=== PATIENT | female | born 1965 | race Caucasian/White ===

== ENCOUNTER 2016-10-27 13:12 | Emergency (ER) | payer OTHER ==
[~2016-10-27] VITALS: Ht 154.9 cm; Wt 78.0 kg
[~2016-10-27 13:12] MED LIST: GLC/500 PO; OXYC1TAB3 PO; PROM25TA9 PO
[2016-10-27 13:17] VITALS: TEMP 36.9; Ht 154.9 cm; Wt 78.0 kg
--- NOTE | 2016-10-27 14:30 | DIAGNOSTIC IMAGING REPORT ---
FOOT MIN 3 VIEWS ROUTINE CLINICAL HISTORY: LEFT FOOT PAIN pain COMPARISON: None. DISCUSSION: The bones and joint spaces appear intact. There is no evidence of fracture, dislocation or bony disease. There is no evidence for soft tissue swelling. IMPRESSION: Negative study. Electronically signed by: Ata Garcia M.D. 10/27/2016 2:29 PM Dictated Date/Time: 10/27/2016 2:28 PM
[2016-10-27 14:54] VITALS: BP 133/64; PULSE 81; O2SAT 97
--- NOTE | 2016-10-27 15:58 | EMERGENCY ROOM VISIT NOTE ---
History First contact with patient: 14:00 Chief Complaint: FOOT PAIN Stated Complaint: LEFT FOOT PAIN History of Present Illness The patient is a 51 year old female who presents to the Emergency Room with complaints of left foot pain. The patient reports falling off of her deck last week and landing on a boulder. She is had persistent foot pain since that time. She does report having a cut on the bottom of the foot, but denies any drainage or redness. She denies any pain radiating into the ankle or leg, and denies any paresthesias or numbness of the left foot or toes. She rates her discomfort a 4 out of 10. 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 (15) OSTEOARTHROS NOS-UNSPEC (16) Puncture wound of left foot (17) Puncture wound of left foot (18) Thumb fracture Family History Diabetes mellitus FH: heart disease FHx: gallbladder disease Hypertension Kidney disease Kidney stones Seizures Social History Smoking Status: Never Smoker Alcohol Use: occasionally Drug Use: none Marital Status: Housing Status: lives with family Occupation Status: unemployed Current/Historical Medications Scheduled Ascorbic Acid (Vitamin C), 1 TAB PO QAM Clonazepam (Klonopin), 1 MG PO BIDM Escitalopram Oxalate (Escitalopram Oxalate), 10 MG PO QAM Escitalopram Oxalate (Escitalopram Oxalate), 20 MG PO QAM Ferrous Sulfate (Iron), 1 TAB PO HS Levothyroxine Sodium (Levothyroxine Sodium), 100 MCG PO QAM Linaclotide (Linzess), 145 MCG PO QAM Lisinopril (Lisinopril), 10 MG PO QPM Loratadine (Claritin), 10 MG PO QAM Metformin Hcl (Glucophage), 500 MG PO QPM Metoprolol Tartrate (Lopressor) (Lopressor), 25 MG PO BID Omeprazole (Prilosec), 40 MG PO QAM Simvastatin (Simvastatin), 40 MG PO HS Scheduled PRN Hydrochlorothiazide (Hydrochlorothiazide), 25 MG PO DAILY PRN for Swelling Ibuprofen (Advil), 400 MG PO Q6H PRN for Pain Oxycodone Ir (Roxicodone Ir), 1-2 TAB PO Q4H PRN for Pain Promethazine Hcl (Phenergan), 25 MG PO Q6H PRN for Nausea Allergies Coded Allergies: Methylprednisolone (Verified Allergy, Mild, RASH, 10/27/16) Erythromycin (Verified Allergy, Unknown, RASH, 10/27/16) Sulfa Antibiotics (Verified Allergy, Unknown, RASH, 10/27/16) Hydromorphone (Verified Adverse Reaction, Intermediate, confusion, 10/27/16) Physical Exam Vital Signs Date Time Temp Pulse Resp B/P Pulse Ox O2 Delivery O2 Flow Rate FiO2 10/27/16 14:54 81 16 133/64 97 Room Air 10/27/16 13:17 36.9 73 18 151/83 96 Room Air Physical Exam CONSTITUTIONAL: Healthy and well nourished. Alert and oriented X 3 with positive affect. Patient does not appear in any acute distress. HEENT: Normocephalic, atraumatic. Pupils equal, round and reactive. NECK: Full active range of motion without discomfort. MUSCULOSKELETAL: Examination of the left foot shows evidence for a prior wound on the plantar instead. He does appear to be healing well without any evidence for induration, fluctuance, erythema or drainage. She has generalized tenderness to palpation along the entire medial plantar fascia. She has no focal tenderness over the dorsal midfoot, metatarsals or phalanges. No focal tenderness over the calcaneus or Achilles tendon. Capillary refill is less than 2 seconds. INTEGUMENTARY: No rash or other significant dermatologic conditions noted. NEUROLOGIC: Left foot and toes are sensory intact. Medical Decision & Procedures ER Provider Diagnostic Interpretation: My interpretation of left foot x-rays does not show any acute fractures, dislocations or radiopaque foreign bodies. Radiologist report is as follows: FOOT MIN 3 VIEWS ROUTINE CLINICAL HISTORY: LEFT FOOT PAIN pain COMPARISON: None. DISCUSSION: The bones and joint spaces appear intact. There is no evidence of fracture, dislocation or bony disease. There is no evidence for soft tissue swelling. IMPRESSION: Negative study. ED Course Patient history and physical exam were performed. Nurse's notes were reviewed. The patient refused any analgesics on initial exam. X-rays of the left foot were normal. The patient was encouraged to follow-up with orthopedics for further reevaluation since she has had this discomfort for a week. I did review x-ray results with her, but advised her that this could also be a plantar fascia injury. At this point I do not suspect cellulitis or foot infection. The patient reports that she does have crutches and a walker at home , and was encouraged to remain limited weightbearing as tolerated. Ice for swelling and pain. I be peripheral or Tylenol if needed for additional pain relief. The patient reports that she will follow up with orthopedics in [place]. She was provided a copy of her x-rays on disc. The patient voiced understanding of all discharge instructions, and rated her pain a 4 out of 10 at the time of discharge. Medical Decision Impression Primary Impression: Contusion of left foot Departure Information Referrals No Doctor, Assigned (PCP) Patient Instructions [facility] Problem Qualifiers Primary Impression: Contusion of left foot Encounter type: initial encounter Qualified Codes: S90.32XA - Contusion of left foot, initial encounter
[2016-11-04] MEDS ORDERED: METO-157 PO (13:37)
[2016-11-04] MEDS ORDERED: ASCO-63 PO (15:10)
[2016-11-12] MEDS ORDERED: OXYC7.5T62 PO (11:45)
[2016-11-12] MEDS ORDERED: CYM30 PO (11:45)
[2016-11-12] MEDS ORDERED: NRN600 PO (11:45)
[2016-11-12] MEDS ORDERED: LRS10 PO (11:45)
[2016-11-12] MEDS ORDERED: NRN300 PO (14:54)
[2017-02-18] MEDS ORDERED: GLC500 PO (10:30)
[2017-02-18] MEDS ORDERED: CPR500 PO (10:30)
[2017-02-18] MEDS ORDERED: DFL100 PO (10:30)
== END 2016-10-27 15:15 | disposition home or self-care (01) ==
LOC: C.EDB 13:13 → C.EDD 15:15
DX: S90.32XA Contusion of left foot, initial encounter (principal); W01.10XA Fall on same level from slipping, tripping and stumbling with subsequent striking against unspecified object, initial encounter; F41.9 Anxiety disorder, unspecified; K21.9 Gastro-esophageal reflux disease without esophagitis; I10 Essential (primary) hypertension; E78.5 Hyperlipidemia, unspecified; E03.9 Hypothyroidism, unspecified; Z83.3 Family history of diabetes mellitus; Z82.49 Family history of ischemic heart disease and other diseases of the circulatory system; Z82.0 Family history of epilepsy and other diseases of the nervous system; Z79.899 Other long term (current) drug therapy

== ENCOUNTER 2016-11-03 13:04 | Emergency (ER) | payer OTHER ==
[~2016-11-03] VITALS: Ht 154.9 cm; Wt 104.0 kg
[2016-11-03 13:08] VITALS: TEMP 37.5; Ht 154.9 cm; Wt 104.0 kg
[2016-11-03] MEDS ORDERED: KETOROLAC TROMETHAMINE 60 MG/2 ML VIAL IM STA (13:43)
[2016-11-03] MEDS ORDERED: OXYCODONE HCL IR 5 MG TAB (IMMEDIATE RELEASE) PO STA ×2 (13:43→14:35)
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
[2016-11-03] MEDS ORDERED: PROMETHAZINE HCL INJ 25 MG/ML 1 ML VIAL IM STA (15:51)
[2016-11-03] MEDS ORDERED: MoRPHine SULFATE 10 MG/ML CARP/VIAL IM STA (15:51)
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
[2016-11-03] MEDS ORDERED: OXYC1TAB3 PO (16:44)
[2016-11-03] MEDS ORDERED: MELO7.5T5 PO (16:44)
[2016-11-03 16:52] VITALS: BP 99/58; PULSE 61; O2SAT 95
[2016-11-04] MEDS ORDERED: METO-157 PO (13:37)
[2016-11-04] MEDS ORDERED: ASCO-63 PO (15:10)
[2016-11-04] MEDS ORDERED: FERR1TAB23 PO (16:15)
[2016-11-04] MEDS ORDERED: OXYC-57 PO (19:30)
[2016-11-04] MEDS ORDERED: ZCR40 PO (20:55)
[2016-11-04] MEDS ORDERED: HYDR25TA5 PO (20:55)
[2016-11-04] MEDS ORDERED: LEVO100T7 PO (20:55)
[2016-11-04] MEDS ORDERED: OMEP40CA41 PO (20:55)
[2016-11-04] MEDS ORDERED: LXP/20 PO (20:55)
[2016-11-04] MEDS ORDERED: LORA10TA5 PO (20:55)
[2016-11-04] MEDS ORDERED: LXP10 PO (20:55)
[2016-11-04] MEDS ORDERED: LINA1CAP PO (21:00)
[2016-11-04] MEDS ORDERED: IBUP-1277 PO (21:36)
[2016-11-04] MEDS ORDERED: CLON1TAB3 PO (21:58)
[2016-11-04] MEDS ORDERED: LISI-461 PO (21:58)
[2016-11-04] MEDS ORDERED: METO25TA56 PO (23:24)
[2016-11-12] MEDS ORDERED: CYM30 PO (11:45)
[2016-11-12] MEDS ORDERED: LRS10 PO (11:45)
[2016-11-12] MEDS ORDERED: OXYC7.5T62 PO (11:45)
[2016-11-12] MEDS ORDERED: NRN600 PO (11:45)
[2016-11-12] MEDS ORDERED: NRN300 PO (14:54)
[2017-02-18] MEDS ORDERED: GLC500 PO (10:30)
[2017-02-18] MEDS ORDERED: CPR500 PO (10:30)
[2017-02-18] MEDS ORDERED: DFL100 PO (10:30)
== END 2016-11-03 16:54 | disposition home or self-care (01) ==
LOC: C.EDB 13:06 → C.EDD 16:54
DX: M25.552 Pain in left hip (principal); E11.9 Type 2 diabetes mellitus without complications; I10 Essential (primary) hypertension; I25.10 Atherosclerotic heart disease of native coronary artery without angina pectoris; F41.9 Anxiety disorder, unspecified; E03.9 Hypothyroidism, unspecified

== ENCOUNTER 2016-11-04 15:27 | Observation (INO) | payer OTHER ==
[~2016-11-04] VITALS: Ht 157.5 cm; Wt 103.4 kg
[~2016-11-04 15:27] MED LIST changes: +ASCO-63 PO; +MELO7.5T5 PO; +METO-157 PO
[2016-11-04] MEDS ORDERED: FERR1TAB23 PO (16:15)
[2016-11-04] MEDS ORDERED: SODIUM CHLORIDE 0.9% 1000ML 1,000 ML IV STA (16:45)
[2016-11-04] MEDS ORDERED: KETOROLAC TROMETHAMINE 30 MG/ML VIAL IV STA (16:45)
[2016-11-04] MEDS ORDERED: HYDROmorphone INJ 1 MG/ML SYR IV STA ×2 (16:45)
[2016-11-04] MEDS ORDERED: ACETAMINOPHEN 500 MG TAB PO STA (16:45)
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
[2016-11-04 17:24] LABS: BASO % 0.3 %; BASO ABS # 0.02 K/uL (0-0.2); COMPLETE YES; EOS % 1.6 %; HEMATOCRIT 40.1 % (37-47); IG% 0.1 %; LYMPH % 46.3 %; LYMPH ABS # 3.11 K/uL (1.2-3.4); MEAN CELL VOLUME 87.7 fL (80-100); MEAN CORPUSCULAR HEMOGLOBIN 30.4 pg (25-34); MEAN CORPUSCULAR HGB CONC 34.7 g/dl (32-36); MEAN PLATELET VOLUME 9.8 fL (7.4-10.4); MONO % 5.4 %; NEUT % 46.3 %; PLATELET COUNT 229 K/uL (130-400); RED BLOOD COUNT 4.57 M/uL (4.2-5.4); WHITE BLOOD COUNT 6.71 K/uL (4.8-10.8)
[2016-11-04] MEDS ORDERED: LORAZEPAM 2 MG/ML 1 ML VIAL ONE (17:37)
[2016-11-04] MEDS ORDERED: LORAZEPAM 2 MG/ML 1 ML VIAL IV STA (17:37)
[2016-11-04 18:13] LABS: BLOOD UREA NITROGEN 16 mg/dl (7-18); BUN/CREATININE RATIO 14.5 (10-20); CALCIUM 8.6 mg/dl (8.5-10.1); CARBON DIOXIDE 25 mmol/L (21-32); CHLORIDE 105 mmol/L (98-107); POTASSIUM 3.9 mmol/L (3.5-5.1); SODIUM 141 mmol/L (136-145)
[2016-11-04] MEDS ORDERED: GADAVIST IV PRN (18:30)
[2016-11-04 18:44] LABS: GLUCOSE 199 mg/dl (70-99)
--- NOTE | 2016-11-04 19:00 | DIAGNOSTIC IMAGING REPORT ---
MRI OF THE LUMBAR SPINE COMBO CLINICAL HISTORY: Low back pain of several months duration. COMPARISON STUDY: Radiographs of the lumbar spine dated 09/02/2016. TECHNIQUE: MRI of the lumbar spine is performed utilizing various T1 and T2-weighted sequences in the axial and sagittal planes. Contrast-enhanced sequences were acquired following the IV administration of 10 cc of Gadavist. FINDINGS: Lumbar spine: Vertebral body height and alignment are maintained throughout the lumbar spine. There is no MRI evidence of fracture. Marrow signal intensity is heterogeneous. No destructive osseous lesion is seen. The transverse and spinous processes appear intact. There is no evidence of spondylolysis. Mild chronic degenerative endplate change is present at T12-L1, L2-L3, and L4-L5. Tiny anterior osteophytes are noted in the lower lumbar region. Intervertebral discs: Degenerative disc desiccation is noted throughout the lumbar spine. No significant loss of height is seen. Spinal cord: The visualized spinal cord is normal in morphology and signal intensity. The conus medullaris terminates at the level of L1. The nerve roots of the cauda equina are normal as visualized. No abnormal enhancement is seen on the postcontrast images. L1-L2: Unremarkable. L2-L3: There is a small posterior disc bulge. The central canal is clear. Mild facet arthropathy is of no consequence. The neural foramina are patent. L3-L4: There is a small posterior disc bulge. The central canal appears clear. There is bilateral subarticular stenosis. There may be impingement on the exiting bilateral L3 nerve roots. Facet arthropathy is of no consequence. The neural foramina are clear. L4-L5: There is a small posterior disc bulge. No significant acquired compromise of the central canal is identified. There is mild bilateral subarticular stenosis. Facet arthropathy is of no consequence. The neural foramina are clear bilaterally. Bilateral facet joint effusions are noted. L5-S1: There is a posterior disc bulge eccentric to the right with annular fissure. This causes right-sided subarticular stenosis and may impinge on the exiting right L5 nerve root. There is no significant acquired compromise of the central canal. Facet arthropathy causes mild bilateral neural foraminal stenosis, right greater than left. There is mild lipomatosis of the central canal at this level. Sacrum: Visualized sacrum is normal in morphology and signal intensity. Soft tissues: The paraspinous soft tissues are within normal limits. The partially imaged retroperitoneal structures are grossly unremarkable but incompletely assessed. IMPRESSION: 1. No acute bony abnormality is identified throughout the lumbosacral spine. 2. There is no large disc herniation or significant central canal stenosis. 3. Lumbosacral spondylosis as detailed above. Dictated: 11/04/2016 6:33 PM Transcribed: 11/04/2016 7:00 PM [email or web address] Electronically signed by: James Phelps M.D. 11/04/2016 7:02 PM Dictated Date/Time: 11/04/2016 6:33 PM
[2016-11-04] MEDS ORDERED: OXYC-57 PO (19:30)
[2016-11-04] MEDS ORDERED: HYDROmorphone INJ 1 MG/ML SYR ONE (19:37)
[2016-11-04] MEDS ORDERED: LXP10 PO (20:55)
[2016-11-04] MEDS ORDERED: LXP/20 PO (20:55)
[2016-11-04] MEDS ORDERED: LORA10TA5 PO (20:55)
[2016-11-04] MEDS ORDERED: ZCR40 PO (20:55)
[2016-11-04] MEDS ORDERED: OMEP40CA41 PO (20:55)
[2016-11-04] MEDS ORDERED: LEVO100T7 PO (20:55)
[2016-11-04] MEDS ORDERED: HYDR25TA5 PO (20:55)
[2016-11-04] MEDS ORDERED: LINA1CAP PO (21:00)
[2016-11-04] MEDS ORDERED: IBUP-1277 PO (21:36)
[2016-11-04] MEDS ORDERED: MAGNESIUM HYDROXIDE SUSP 30 ML UDC PO PRN (21:45)
[2016-11-04] MEDS ORDERED: ALUMINUM/MAGNESIUM/SIMETH (MAALOX MAX) 30 ML UDC PO PRN (21:45)
[2016-11-04] MEDS ORDERED: CLON1TAB3 PO (21:58)
[2016-11-04] MEDS ORDERED: LISI-461 PO (21:58)
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
[2016-11-04] MEDS ORDERED: HYDROCHLOROTHIAZIDE 25 MG TAB PO PRN (22:15)
[2016-11-04] MEDS ORDERED: PATIENT'S HEIGHT AND/OR WEIGHT NEEDED SCH (23:00)
[2016-11-04] MEDS ORDERED: IV FLUIDS COMPLETED PRN (23:00)
[2016-11-04] MEDS ORDERED: GABAPENTIN 100 MG CAP PO ONE (23:15)
[2016-11-04] MEDS ORDERED: METO25TA56 PO (23:24)
[2016-11-05 00:02] VITALS: BP 110/73; TEMP 37; Ht 157.5 cm; Wt 103.4 kg
[2016-11-05] MEDS: OXYCODONE/ACETAMINOPHEN 5-325 TAB PO PRN ×3 (00:03→10:24)
[2016-11-05 01:19] LABS: PROTHROMBIN TIME (PATIENT) 10.5 SECONDS (9.0-12.0)
[2016-11-05] MEDS ORDERED: MoRPHine SULFATE 4 MG/ML 1 ML CARP\\VIAL IV STA (02:06)
[2016-11-05] MEDS: LEVOTHYROXINE 100 MCG TAB PO SCH (05:24)
[2016-11-05 06:52] LABS: HEMATOCRIT 36.4 % (37-47); MEAN CELL VOLUME 88.3 fL (80-100); MEAN CORPUSCULAR HEMOGLOBIN 30.1 pg (25-34); MEAN CORPUSCULAR HGB CONC 34.1 g/dl (32-36); MEAN PLATELET VOLUME 9.2 fL (7.4-10.4); PLATELET COUNT 175 K/uL (130-400); RED BLOOD COUNT 4.12 M/uL (4.2-5.4); WHITE BLOOD COUNT 5.55 K/uL (4.8-10.8)
[2016-11-05 07:15] VITALS: BP 107/66; PULSE 63; TEMP 36.6; O2SAT 94
[2016-11-05 07:25] LABS: BUN/CREATININE RATIO 13.6 (10-20); CALCIUM 8.7 mg/dl (8.5-10.1); CREATININE 1.1 mg/dl (0.60-1.20); POTASSIUM 4.1 mmol/L (3.5-5.1)
[2016-11-05] MEDS: LINZESS~ORDER AWAITING ACTION SCH ×3 (07:58→17:11)
[2016-11-05] MEDS ORDERED: INFLUENZA ADMINISTRATION CHARGE ONE (08:00)
[2016-11-05] MEDS ORDERED: INFLUENZA VIRUS QUAD VACCINE 0.5 ML SYR IM. ONE (08:00)
[2016-11-05] MEDS: CLONAZEPAM 1 MG TAB PO SCH ×2 (08:46→17:14)
[2016-11-05] MEDS: LORATADINE 10 MG TAB PO SCH (08:47)
[2016-11-05] MEDS: METOPROLOL TARTRATE 25 MG TAB PO SCH ×2 (08:47→20:53)
[2016-11-05] MEDS: ESCITALOPRAM OXALATE 10 MG TAB PO SCH (08:48)
[2016-11-05] MEDS: ESCITALOPRAM OXALATE 20 MG TAB PO SCH (08:48)
[2016-11-05] MEDS: PANTOprazole SOD 40 MG TAB PO SCH (08:49)
[2016-11-05 08:52] VITALS: BP 132/80; PULSE 67
[2016-11-05] MEDS: ENOXAPARIN 40 MG/0.4 ML SYR SQ SCH (08:55)
[2016-11-05] MEDS ORDERED: GABAPENTIN 100 MG CAP PO SCH ×2 (09:00)
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
[2016-11-05] MEDS: KETOROLAC TROMETHAMINE 15 MG/ML VIAL IV PRN ×2 (11:41→19:50)
[2016-11-05] MEDS ORDERED: NURSING VERBAL MED ORDER ONE (13:45)
[2016-11-05] MEDS: HYDROmorphone INJ 0.5 MG/0.5 ML SYR IV PRN ×6 (13:54→23:21)
[2016-11-05] MEDS: ONDANSETRON INJ 2 MG/ML 2 ML VIAL IV PRN (13:55)
[2016-11-05] MEDS: GABAPENTIN 300 MG CAP PO SCH ×2 (14:02→20:53)
--- NOTE | 2016-11-05 14:27 | Progress Note ---
Subjective Date of Service: Nov 05, 2016. Subjective Pt evaluation today including: conversation w/ patient, physical exam, chart review, lab review, review of studies, review of inpatient medication list Reports pain is so severe she has been unable to sleep. She feels tired, helpless, and "defeated." Hydrocodone at home were not working. Reports morphine has been the only pain med helping. Pain that shoots from lateral thigh, to anterior knee and barker down to her hallux. Otherwise, no chest pain, no sob, no abd pain, no urinary symptoms, no constipation. Problem List Medical Problems: (1) Abdominal pain Status: Acute (2) Abdominal pain Status: Acute (3) ANXIETY STATE NOS Status: Chronic (4) Back pain Status: Acute (5) Contusion of left foot Status: Acute (6) Hip pain, left Status: Acute (7) Injury of left foot Status: Acute (8) Intractable abdominal pain Status: Acute (9) Left upper quadrant pain Status: Acute (10) Vertigo Status: Acute Review of Systems All Other Systems: Reviewed and Negative Medications Acetaminophen (Tylenol Tab) 650 mg Q4H PRN PO; Start 11/04/16 at 21:45; Stop 12/04/16 at 21:44 Al Hydrox/Mg Hydrox/Simethicone (Maalox Max Susp) 15 ml Q4H PRN PO; Start 11/04 at 21:45; Stop 12/04/16 at 21:44 Clonazepam (Klonopin Tab) 1 mg BIDM PO Last administered on 11/05/16 08:46; Admin Dose 1 MG; Start 11/05/16 at 08:00; Stop 12/05/16 at 07:59 Enoxaparin Sodium (Lovenox Inj) 40 mg Q24H SQ Last administered on 11/05/16 08: 55; Admin Dose 40 MG; Start 11/05/16 at 09:00; Stop 12/05/16 at 08:59 Escitalopram Oxalate (Lexapro Tab) 10 mg QAM PO Last administered on 11/05/16 08:48; Admin Dose 10 MG; Start 11/05/16 at 09:00; Stop 12/05/16 at 08:59 Escitalopram Oxalate (Lexapro Tab) 20 mg QAM PO Last administered on 11/05/16 08:48; Admin Dose 20 MG; Start 11/05/16 at 09:00; Stop 12/05/16 at 08:59 Gabapentin (Neurontin Cap) 300 mg TID PO Last administered on 11/05/16 14:02; Admin Dose 300 MG; Start 11/05/16 at 14:00; Stop 12/05/16 at 13:59 Gadobutrol (Gadavist) 10 mmol UD PRN IV; Start 11/04/16 at 18:30; Stop at 18:29 Hydrochlorothiazide (Hydrochlorothiazide Tab) 25 mg DAILY PRN PO; Start at 22:15; Stop 12/04/16 at 22:14 Hydromorphone HCl (Dilaudid Inj) 0.5 mg Q1H PRN IV Last administered on 13:54; Admin Dose 0.5 MG; Start 11/05/16 at 14:00; Stop 11/19/16 at 13:59 Ketorolac Tromethamine (Toradol Inj) 15 mg Q6H PRN IV Last administered on 11/05 11:41; Admin Dose 15 MG; Start 11/05/16 at 11:00; Stop 11/07/16 at 11:00 Levothyroxine Sodium (Synthroid Tab) 100 mcg DAILYBB PO Last administered on 05:24; Admin Dose 100 MCG; Start 11/05/16 at 06:00; Stop 12/05/16 at 06: 59 Lisinopril (Zestril Tab) 10 mg QPM PO; Start 11/05/16 at 21:00; Stop 12/05/16 at 20:59 Loratadine (Claritin Tab) 10 mg QAM PO Last administered on 11/05/16 08:47; Admin Dose 10 MG; Start 11/05/16 at 09:00; Stop 12/05/16 at 08:59 Magnesium Hydroxide (Milk Of Magnesia Susp) 30 ml Q6H PRN PO; Start 11/04/16 at 21:45; Stop 12/04/16 at 21:44 Metoclopramide HCl (Reglan Tab) 10 mg DAILY PRN PO; Start 11/04/16 at 22:15; Stop 12/04/16 at 22:14 Metoprolol Tartrate (Lopressor Tab) 25 mg BID PO Last administered on 11/05/16 08:47; Admin Dose 25 MG; Start 11/05/16 at 09:00; Stop 12/05/16 at 08:59 Miscellaneous (Iv Fluids Completed) 1 ea PRN PRN N/A; Start 11/04/16 at 23:00; Stop 11/04/17 at 22:59 Miscellaneous Information (Order Awaiting Action) 1 ea QS N/A; Start 11/05/16 at 00:00; Stop 12/05/16 at 00:00 Ondansetron HCl (Zofran Inj) 4 mg Q6H PRN IV Last administered on 11/05/16 13: 55; Admin Dose 4 MG; Start 11/04/16 at 21:45; Stop 12/04/16 at 21:44 Oxycodone/ Acetaminophen (Percocet 7.5-325MG Tab) 1 tab Q4H PRN PO; Start 11/05 at 14:00; Stop 11/19/16 at 13:59 Pantoprazole Sodium (Protonix Tab) 40 mg QAM PO Last administered on 11/05/16 08:49; Admin Dose 40 MG; Start 11/05/16 at 09:00; Stop 12/05/16 at 08:59 Polyethylene (Miralax Powder Packet) 17 gm DAILY PRN PO; Start 11/04/16 at 23: 00; Stop 12/04/16 at 22:59 Promethazine HCl (Phenergan Tab) 25 mg Q6H PRN PO; Start 11/04/16 at 22:15; Stop 12/04/16 at 22:14 Simvastatin (Zocor Tab) 40 mg HS PO; Start 11/05/16 at 21:00; Stop 12/05/16 at 20:59 Objective Vital Signs Date Time Temp Pulse Resp B/P Pulse Ox O2 Delivery O2 Flow Rate FiO2 11/05/16 08:52 67 132/80 11/05/16 08:20 Room Air 94 11/05/16 07:15 36.6 63 18 107/66 94 Room Air 11/05/16 00:02 37.0 18 110/73 Room Air 11/05/16 00:02 Room Air 11/04/16 22:35 78 18 110/73 98 11/04/16 21:36 76 18 121/57 93 Room Air 11/04/16 21:01 84 18 127/57 93 Room Air 11/04/16 19:03 91 18 136/66 96 Room Air 11/04/16 18:42 74 18 126/61 95 Room Air 11/04/16 15:29 37.0 76 18 140/70 95 Room Air Physical Exam Comments: NAD, AOx3 anicteric sclerae, EOMI, PERRL S1 S2 RRR, no murmurs appreciated CTAB no w/r/r Abd soft, nt/nd +BS no CVA tenderness no LE edema and FROM in all extremities CN 2-12 grossly intact without any facial drooping or focal deficits Laboratory Results Last 24 Hours Test 11/04/16 17:00 11/04/16 23:29 11/05/16 06:43 White Blood Count 6.71 K/uL 5.55 K/uL Red Blood Count 4.57 M/uL 4.12 M/uL Hemoglobin 13.9 g/dL 12.4 g/dL Hematocrit 40.1 % 36.4 % Mean Corpuscular Volume 87.7 fL 88.3 fL Mean Corpuscular Hemoglobin 30.4 pg 30.1 pg Mean Corpuscular Hemoglobin Concent 34.7 g/dl 34.1 g/dl Platelet Count 229 K/uL 175 K/uL Mean Platelet Volume 9.8 fL 9.2 fL Neutrophils (%) (Auto) 46.3 % Lymphocytes (%) (Auto) 46.3 % Monocytes (%) (Auto) 5.4 % Eosinophils (%) (Auto) 1.6 % Basophils (%) (Auto) 0.3 % Neutrophils # (Auto) 3.10 K/uL Lymphocytes # (Auto) 3.11 K/uL Monocytes # (Auto) 0.36 K/uL Eosinophils # (Auto) 0.11 K/uL Basophils # (Auto) 0.02 K/uL RDW Standard Deviation 42.4 fL 42.8 fL RDW Coefficient of Variation 13.2 % 13.2 % Immature Granulocyte % (Auto) 0.1 % Immature Granulocyte # (Auto) 0.01 K/uL Sodium Level 141 mmol/L 143 mmol/L Potassium Level 3.9 mmol/L 4.1 mmol/L Chloride Level 105 mmol/L 108 mmol/L Carbon Dioxide Level 25 mmol/L 26 mmol/L Anion Gap 11.0 mmol/L 9.0 mmol/L Blood Urea Nitrogen 16 mg/dl 15 mg/dl Creatinine 1.10 mg/dl 1.10 mg/dl Estimated GFR () 67.8 67.8 Estimated GFR (Non- 58.5 58.5 BUN/Creatinine Ratio 14.5 13.6 Random Glucose 199 mg/dl 139 mg/dl Calcium Level 8.6 mg/dl 8.7 mg/dl Prothrombin Time 10.5 SECONDS Prothromb Time International Ratio 1.0 Est Creatinine Clear Calc Drug Dose 69.0 ml/min MRI [facility] spine IMPRESSION: 1. No acute bony abnormality is identified throughout the lumbosacral spine. 2. There is no large disc herniation or significant central canal stenosis. 3. Lumbosacral spondylosis as detailed above. Dictated: 11/04/2016 6:33 PM Transcribed: 11/04/2016 7:00 PM [email or web address] Assessment and Plan 1. Left lumbar radiculopathy - started on gabapentin 300 mg TID - pain management on board - still requiring IV pain meds for relief - MRI results reviewed - ortho evaluation - PT/OT evaluation - cont toradol and dilaudid for now 2. Hypertension - Continue lisinopril, hctz, metoprolol 3. Hypercholesterolemia - Continue simvastatin 4. Hypothyroidism Continue levothyroxine 5. Depression/Anxiety - Continue Lexapro - Klonopin 6. Gastroparesis - Continue metoclopramide - Continue promethazine 7. DVT prophylaxis - Lovenox 40 mg subcutaneous daily
[2016-11-05 14:56] VITALS: BP 125/73; PULSE 72; TEMP 37; O2SAT 96
[2016-11-05] MEDS: PROMETHAZINE HCL 25 MG TAB PO PRN (15:55)
[2016-11-05] MEDS: OXYCODONE/ACETAMINOPHEN 7.5-325 TAB PO PRN ×2 (15:56→20:54)
[2016-11-05] MEDS: METOCLOPRAMIDE HCL 10 MG TAB PO PRN (17:42)
[2016-11-05 20:50] VITALS: BP 118/65; PULSE 75
[2016-11-05] MEDS: SIMVASTATIN 40 MG TAB PO SCH (20:53)
[2016-11-05] MEDS: LISINOPRIL 10 MG TAB PO SCH (20:53)
[2016-11-05] MEDS: LINACLOTIDE 145 MCG PO SCH (21:28)
[2016-11-05 23:38] VITALS: BP 104/61; PULSE 65; TEMP 36.8; O2SAT 94
[2016-11-06] VITALS (7 sets, daily range): BP systolic 107–137; BP diastolic 64–78; PULSE 65–92; TEMP 36.7–36.9; O2SAT 93–94
[2016-11-06] MEDS: HYDROmorphone INJ 0.5 MG/0.5 ML SYR IV PRN ×8 (02:35→15:59)
[2016-11-06] MEDS: ACETAMINOPHEN 325 MG TAB PO PRN ×2 (04:29→12:59)
[2016-11-06] MEDS: LEVOTHYROXINE 100 MCG TAB PO SCH (04:55)
[2016-11-06] MEDS: LORATADINE 10 MG TAB PO SCH (09:02)
[2016-11-06] MEDS: CLONAZEPAM 1 MG TAB PO SCH ×2 (09:02→17:52)
[2016-11-06] MEDS: ESCITALOPRAM OXALATE 10 MG TAB PO SCH (09:02)
[2016-11-06] MEDS: METOPROLOL TARTRATE 25 MG TAB PO SCH ×2 (09:02→21:27)
[2016-11-06] MEDS: GABAPENTIN 300 MG CAP PO SCH ×3 (09:02→21:27)
[2016-11-06] MEDS: ESCITALOPRAM OXALATE 20 MG TAB PO SCH (09:03)
[2016-11-06] MEDS: PANTOprazole SOD 40 MG TAB PO SCH (09:03)
[2016-11-06] MEDS: LINACLOTIDE 145 MCG PO SCH (09:04)
[2016-11-06] MEDS: ENOXAPARIN 40 MG/0.4 ML SYR SQ SCH (09:04)
--- NOTE | 2016-11-06 15:39 | Progress Note ---
Subjective Date of Service: Nov 06, 2016. Subjective Pt evaluation today including: conversation w/ patient, conversation w/ family , physical exam, review of inpatient medication list still in pain. Still requiring multiple doses of IV hydromorphone. No new symptoms or complaints offered. Problem List Medical Problems: (1) Abdominal pain Status: Acute (2) Abdominal pain Status: Acute (3) ANXIETY STATE NOS Status: Chronic (4) Back pain Status: Acute (5) Contusion of left foot Status: Acute (6) Hip pain, left Status: Acute (7) Injury of left foot Status: Acute (8) Intractable abdominal pain Status: Acute (9) Left upper quadrant pain Status: Acute (10) Vertigo Status: Acute Review of Systems All Other Systems: Reviewed and Negative Medications Acetaminophen (Tylenol Tab) 650 mg Q4H PRN PO Last administered on 11/06/16 12:59; Admin Dose 650 MG; Start 11/04/16 at 21:45; Stop 12/04/16 at 21:44 Al Hydrox/Mg Hydrox/Simethicone (Maalox Max Susp) 15 ml Q4H PRN PO; Start 11/04 at 21:45; Stop 12/04/16 at 21:44 Clonazepam (Klonopin Tab) 1 mg BIDM PO Last administered on 11/06/16 09:02; Admin Dose 1 MG; Start 11/05/16 at 08:00; Stop 12/05/16 at 07:59 Enoxaparin Sodium (Lovenox Inj) 40 mg Q24H SQ Last administered on 11/06/16 09: 04; Admin Dose 40 MG; Start 11/05/16 at 09:00; Stop 12/05/16 at 08:59 Escitalopram Oxalate (Lexapro Tab) 10 mg QAM PO Last administered on 11/06/16 09:02; Admin Dose 10 MG; Start 11/05/16 at 09:00; Stop 12/05/16 at 08:59 Escitalopram Oxalate (Lexapro Tab) 20 mg QAM PO Last administered on 11/06/16 09:03; Admin Dose 20 MG; Start 11/05/16 at 09:00; Stop 12/05/16 at 08:59 Gabapentin (Neurontin Cap) 300 mg TID PO Last administered on 11/06/16 14:04; Admin Dose 300 MG; Start 11/05/16 at 14:00; Stop 12/05/16 at 13:59 Gadobutrol (Gadavist) 10 mmol UD PRN IV; Start 11/04/16 at 18:30; Stop at 18:29 Hydrochlorothiazide (Hydrochlorothiazide Tab) 25 mg DAILY PRN PO; Start at 22:15; Stop 12/04/16 at 22:14 Hydromorphone HCl (Dilaudid Inj) 0.5 mg Q1H PRN IV Last administered on 14:41; Admin Dose 0.5 MG; Start 11/05/16 at 14:00; Stop 11/19/16 at 13:59 Ketorolac Tromethamine (Toradol Inj) 15 mg Q6H PRN IV Last administered on 11/05 19:50; Admin Dose 15 MG; Start 11/05/16 at 11:00; Stop 11/07/16 at 11:00 Levothyroxine Sodium (Synthroid Tab) 100 mcg DAILYBB PO Last administered on 04:55; Admin Dose 100 MCG; Start 11/05/16 at 06:00; Stop 12/05/16 at 06: 59 Linaclotide (Linzess) 145 mcg QAM PO Last administered on 11/06/16 09:04; Admin Dose 145 MCG; Start 11/06/16 at 09:00; Stop 12/06/16 at 08:59 Lisinopril (Zestril Tab) 10 mg QPM PO Last administered on 11/05/16 20:53; Admin Dose 10 MG; Start 11/05/16 at 21:00; Stop 12/05/16 at 20:59 Loratadine (Claritin Tab) 10 mg QAM PO Last administered on 11/06/16 09:02; Admin Dose 10 MG; Start 11/05/16 at 09:00; Stop 12/05/16 at 08:59 Magnesium Hydroxide (Milk Of Magnesia Susp) 30 ml Q6H PRN PO; Start 11/04/16 at 21:45; Stop 12/04/16 at 21:44 Metoclopramide HCl (Reglan Tab) 10 mg DAILY PRN PO Last administered on 17:42; Admin Dose 10 MG; Start 11/04/16 at 22:15; Stop 12/04/16 at 22:14 Metoprolol Tartrate (Lopressor Tab) 25 mg BID PO Last administered on 11/06/16 09:02; Admin Dose 25 MG; Start 11/05/16 at 09:00; Stop 12/05/16 at 08:59 Miscellaneous (Iv Fluids Completed) 1 ea PRN PRN N/A; Start 11/04/16 at 23:00; Stop 11/04/17 at 22:59 Ondansetron HCl (Zofran Inj) 4 mg Q6H PRN IV Last administered on 11/05/16 13: 55; Admin Dose 4 MG; Start 11/04/16 at 21:45; Stop 12/04/16 at 21:44 Oxycodone/ Acetaminophen (Percocet 7.5-325MG Tab) 1 tab Q4H PRN PO Last administered on 11/05/16 20:54; Admin Dose 1 TAB; Start 11/05/16 at 14:00; Stop 11/19/16 at 13:59 Pantoprazole Sodium (Protonix Tab) 40 mg QAM PO Last administered on 11/06/16 09:03; Admin Dose 40 MG; Start 11/05/16 at 09:00; Stop 12/05/16 at 08:59 Polyethylene (Miralax Powder Packet) 17 gm DAILY PRN PO; Start 11/04/16 at 23: 00; Stop 12/04/16 at 22:59 Promethazine HCl (Phenergan Tab) 25 mg Q6H PRN PO Last administered on 15:55; Admin Dose 25 MG; Start 11/04/16 at 22:15; Stop 12/04/16 at 22:14 Simvastatin (Zocor Tab) 40 mg HS PO Last administered on 11/05/16 20:53; Admin Dose 40 MG; Start 11/05/16 at 21:00; Stop 12/05/16 at 20:59 Medications (Trade) Dose Ordered Sig/Prachi Route Start Time Stop Time Status Last Admin Dose Admin Lisinopril (Zestril Tab) 10 mg QPM PO 11/05/16 21:00 12/05/16 20:59 11/05/16 20:53 10 MG Simvastatin (Zocor Tab) 40 mg HS PO 11/05/16 21:00 12/05/16 20:59 11/05/16 20:53 40 MG Linaclotide (Linzess) 145 mcg QAM PO 11/06/16 09:00 12/06/16 08:59 11/06/16 09:04 145 MCG Objective Vital Signs Date Time Temp Pulse Resp B/P Pulse Ox O2 Delivery O2 Flow Rate FiO2 11/06/16 10:57 92 137/71 11/06/16 08:15 94 11/06/16 08:10 93 Room Air 11/06/16 08:09 36.7 90 17 121/78 94 Room Air 11/05/16 23:50 Room Air 11/05/16 23:38 36.8 65 16 104/61 94 Room Air 11/05/16 20:50 75 118/65 11/05/16 15:50 Room Air Physical Exam Comments: nad, aox3, coherent and fluent speech eomi, perrl, anicteric sclerae s1 s2 rrr, no murmurs appreciated ctab no w/r/r abd soft, nt/nd +BS no LE edema no neuro focal deficits with CN 2-12 grossly intact Assessment and Plan 1. Left lumbar radiculopathy - started on gabapentin 300 mg TID - pain management on board - still requiring IV pain meds for relief, will increase hydromorphone dose and decrease frequency - MRI results reviewed - ortho evaluation - PT/OT evaluation and will need to determine if she'll need acute rehab vs home health visits - awaiting ortho consult 2. Hypertension - Continue lisinopril, hctz, metoprolol 3. Hypercholesterolemia - Continue simvastatin 4. Hypothyroidism Continue levothyroxine 5. Depression/Anxiety - Continue Lexapro - Klonopin 6. Gastroparesis - Continue metoclopramide - Continue promethazine 7. DVT prophylaxis - Lovenox 40 mg subcutaneous daily
[2016-11-06] MEDS: OXYCODONE/ACETAMINOPHEN 7.5-325 TAB PO PRN ×2 (17:52→22:15)
[2016-11-06] MEDS: PROMETHAZINE HCL 25 MG TAB PO PRN (17:54)
[2016-11-06] MEDS: HYDROmorphone INJ 1 MG/ML SYR IV PRN ×2 (19:51→23:31)
[2016-11-06] MEDS: SIMVASTATIN 40 MG TAB PO SCH (21:27)
[2016-11-06] MEDS: LISINOPRIL 10 MG TAB PO SCH (21:27)
[2016-11-06] MEDS: KETOROLAC TROMETHAMINE 15 MG/ML VIAL IV PRN (21:27)
--- NOTE | 2016-11-07 00:08 | ORTHOPEDIC CONSULTATION ---
DATE OF CONSULTATION: 11/06/2016 HISTORY OF PRESENT ILLNESS: The patient is a 51-year-old female who presents with worsening left hip pain over 7 days. She relates to me that she is having some problems with abdominal and inguinal hernias and was not sure if the pain was coming from that, shooting down her leg or she was having primary hip pain. It does hurt when she lays on her left hip and she has some pain that radiates down her thigh. She says at times her great toe feels a little different than her opposite foot. She has not really appreciated any significant weakness. She does have a history of obesity, anxiety, edema, reflux, hyperlipidemia, hypothyroidism and osteoarthritis. FAMILY HISTORY: Diabetes mellitus, hypertension. SOCIAL HISTORY: She lives at home with her family. She was in the room with her family today. She does not use tobacco products. MEDICATIONS: Pertinent orthopedic medicines include Meloxicam and Prilosec. She is also on OxyIR and Percocet to control the pain, but the pain was not controlled with meds and had to be admitted. Other medications were reviewed. ALLERGIES AND REVIEW OF SYSTEMS: All reviewed. IMAGING STUDIES: Her x-rays reviewed demonstrate very mild OA, no obvious abnormalities. Her lumbar MRI suggests some degenerative disc disease of the lumbar spine, and she has L4-5 bulging disc, L5-S1 bulging disc of the lumbar spine, some degenerative disc disease in general. The posterior disk bulge at L5-S1 seemed to be more to the right according to the reading which would be the opposite side of her symptoms. PHYSICAL EXAMINATION: Demonstrates her circulation is intact. Sensation, she has a little bit asymmetrical sensation in the webspace of her left foot compared to in the great toe area. She had a little weakness of her great toe left compared to the right. No ankle weakness in dorsiflexion or plantarflexion. She had some pain with flexion and internal rotation of her hip and no pain with external rotation of her hip. She had good range of motion of her hip, equal leg lengths. The pain was not severe. She did have tenderness over the greater trochanter. ASSESSMENT: Probable multifactorial left hip and leg pain. She may have an element of trochanteric bursitis. It is unclear whether this is disc related pain but possible L5 radiculopathy. It is unclear whether any of her hernias are contributing to her pain. PLAN: Would recommend a trochanteric bursa injection and physical therapy and orthopedic spine consult. Thank you for this consultation.
[2016-11-07] MEDS: PROMETHAZINE HCL 25 MG TAB PO PRN ×3 (00:19→13:57)
[2016-11-07] MEDS: HYDROmorphone INJ 1 MG/ML SYR IV PRN ×5 (04:28→23:21)
[2016-11-07] MEDS: LEVOTHYROXINE 100 MCG TAB PO SCH (04:36)
[2016-11-07] MEDS: METOCLOPRAMIDE HCL 10 MG TAB PO PRN (04:39)
[2016-11-07 07:23] VITALS: BP 103/62; PULSE 63; TEMP 36.8; O2SAT 92
[2016-11-07 07:30] VITALS: O2SAT 92
[2016-11-07] MEDS ORDERED: COUGH DROP (SUGAR FREE) LOZ 24 LOZ/1 BOX ONE (07:31)
[2016-11-07] MEDS: OXYCODONE/ACETAMINOPHEN 7.5-325 TAB PO PRN ×4 (07:44→21:31)
[2016-11-07 08:30] LABS: HEMATOCRIT 38.4 % (37-47); MEAN CELL VOLUME 87.9 fL (80-100); MEAN CORPUSCULAR HEMOGLOBIN 30.7 pg (25-34); MEAN CORPUSCULAR HGB CONC 34.9 g/dl (32-36); MEAN PLATELET VOLUME 9.5 fL (7.4-10.4); PLATELET COUNT 173 K/uL (130-400); RED BLOOD COUNT 4.37 M/uL (4.2-5.4); WHITE BLOOD COUNT 6.18 K/uL (4.8-10.8)
[2016-11-07 08:51] VITALS: BP 119/80; PULSE 63
[2016-11-07] MEDS: CLONAZEPAM 1 MG TAB PO SCH ×2 (08:53→17:52)
[2016-11-07] MEDS: LORATADINE 10 MG TAB PO SCH (08:55)
[2016-11-07] MEDS: ESCITALOPRAM OXALATE 10 MG TAB PO SCH (08:55)
[2016-11-07] MEDS: GABAPENTIN 300 MG CAP PO SCH ×3 (08:55→21:31)
[2016-11-07] MEDS: ESCITALOPRAM OXALATE 20 MG TAB PO SCH (08:55)
[2016-11-07] MEDS: METOPROLOL TARTRATE 25 MG TAB PO SCH ×2 (08:55→21:31)
[2016-11-07 08:56] LABS: CREATININE 1.1 mg/dl (0.60-1.20)
[2016-11-07] MEDS: PANTOprazole SOD 40 MG TAB PO SCH (08:56)
[2016-11-07] MEDS: ENOXAPARIN 40 MG/0.4 ML SYR SQ SCH (08:56)
[2016-11-07] MEDS: LINACLOTIDE 145 MCG PO SCH (08:57)
[2016-11-07 14:56] VITALS: BP 105/68; PULSE 63; TEMP 37.1; O2SAT 95
--- NOTE | 2016-11-07 17:48 | Progress Note ---
Subjective Date of Service: Nov 07, 2016. Subjective Pt evaluation today including: conversation w/ patient Pt with ongoing L hip/LE pain. She states she had two episodes of emesis earlier, but is now hungry. Denies abd pain. Pt denies fever, SOB, chest pain , c/d, LE swelling. Pt states she missed 2 doses of linsez and without that she has a lot of issues with her IBS. She has been back on it now since yesterday. ROS as noted above, otherwise neg. Problem List Medical Problems: (1) Abdominal pain Status: Acute (2) Abdominal pain Status: Acute (3) ANXIETY STATE NOS Status: Chronic (4) Back pain Status: Acute (5) Contusion of left foot Status: Acute (6) Hip pain, left Status: Acute (7) Injury of left foot Status: Acute (8) Intractable abdominal pain Status: Acute (9) Left upper quadrant pain Status: Acute (10) Vertigo Status: Acute Objective Vital Signs Date Time Temp Pulse Resp B/P Pulse Ox O2 Delivery O2 Flow Rate FiO2 11/07/16 14:56 37.1 63 18 105/68 95 Room Air 11/07/16 08:51 63 119/80 11/07/16 07:30 92 Room Air 11/07/16 07:23 36.8 63 18 103/62 92 Room Air 11/06/16 23:16 Room Air 11/06/16 23:10 36.9 65 18 118/64 94 Room Air 11/06/16 21:26 67 115/68 Physical Exam General Appearance: no apparent distress, + obese Respiratory/Chest: normal breath sounds, no respiratory distress Cardiovascular: regular rate, rhythm, no edema Abdomen: non tender, soft Extremities: non-tender, no pedal edema Neurologic/Psychiatric: alert, oriented x 3 Skin: normal color, warm/dry Laboratory Results Last 24 Hours Test 11/07/16 08:15 White Blood Count 6.18 K/uL Red Blood Count 4.37 M/uL Hemoglobin 13.4 g/dL Hematocrit 38.4 % Mean Corpuscular Volume 87.9 fL Mean Corpuscular Hemoglobin 30.7 pg Mean Corpuscular Hemoglobin Concent 34.9 g/dl RDW Standard Deviation 41.9 fL RDW Coefficient of Variation 13.0 % Platelet Count 173 K/uL Mean Platelet Volume 9.5 fL Creatinine 1.10 mg/dl Est Creatinine Clear Calc Drug Dose 69.0 ml/min Estimated GFR () 67.8 Estimated GFR (Non- 58.5 Assessment and Plan 51 y/o F who was admitted for observation for intractable L hip/LE pain 1. Left lumbar radiculopathy - started on gabapentin 300 mg TID - pain management on board - still requiring IV pain meds for relief - MRI noted - ortho planning for trochanteric bursa injection either today or tomorrow - PT/OT evaluation and will need to determine if she'll need acute rehab vs home health visits 2. Hypertension - Continue lisinopril, hctz, metoprolol 3. Hypercholesterolemia - Continue simvastatin 4. Hypothyroidism Continue levothyroxine 5. Depression/Anxiety - Continue Lexapro - Klonopin 6. Gastroparesis - Continue metoclopramide - Continue promethazine 7. DVT prophylaxis - Lovenox 40 mg subcutaneous daily PT recs for home vs possible rehab if no improvement
[2016-11-07] MEDS: LISINOPRIL 10 MG TAB PO SCH (21:30)
[2016-11-07] MEDS: SIMVASTATIN 40 MG TAB PO SCH (21:31)
[2016-11-07 22:55] VITALS: BP 109/72; PULSE 66; TEMP 37; O2SAT 95
[2016-11-08] MEDS: HYDROmorphone INJ 1 MG/ML SYR IV PRN ×3 (04:02→22:36)
[2016-11-08] MEDS: LEVOTHYROXINE 100 MCG TAB PO SCH (05:09)
[2016-11-08 07:14] VITALS: BP 103/65; PULSE 65; TEMP 36.8; O2SAT 91
[2016-11-08 08:30] VITALS: O2SAT 94
[2016-11-08 08:40] VITALS: BP 124/77; PULSE 80
[2016-11-08] MEDS: CLONAZEPAM 1 MG TAB PO SCH ×2 (08:40→17:51)
[2016-11-08] MEDS: OXYCODONE/ACETAMINOPHEN 7.5-325 TAB PO PRN ×2 (08:41→14:47)
[2016-11-08] MEDS: LORATADINE 10 MG TAB PO SCH (08:42)
[2016-11-08] MEDS: METOPROLOL TARTRATE 25 MG TAB PO SCH ×2 (08:43→20:05)
[2016-11-08] MEDS: ESCITALOPRAM OXALATE 10 MG TAB PO SCH (08:43)
[2016-11-08] MEDS: GABAPENTIN 300 MG CAP PO SCH ×3 (08:43→20:06)
[2016-11-08] MEDS: LINACLOTIDE 145 MCG PO SCH (08:44)
[2016-11-08] MEDS: OMEPRAZOLE 40 MG CAP PO SCH (08:44)
[2016-11-08] MEDS: ESCITALOPRAM OXALATE 20 MG TAB PO SCH (08:45)
[2016-11-08] MEDS: ENOXAPARIN 40 MG/0.4 ML SYR SQ SCH (08:45)
[2016-11-08] MEDS ORDERED: BUPIVACAINE/EPINEPHRINE 0.5% MPF 1:200,000 30 ML VIAL INFIL SCH (09:45)
[2016-11-08] MEDS ORDERED: METHYLPREDNISOLONE ACETATE 80 MG/ML VIAL IA ONE (09:45)
--- NOTE | 2016-11-08 10:13 | ORTHOPEDIC PROGRESS NOTE ---
DATE: 11/08/2016 In room 386, bed 2. SUBJECTIVE: The patient was seen today to discuss past history with her methylprednisolone allergy. The patient had been admitted with left lower extremity pain and also after being seen by Dr. Rangel, had discovered likely trochanteric bursitis secondary to her methylprednisolone allergy. There was hesitation in giving her any type of injection at this point in time. Discussing it with the patient, she states that she has had cortisone injections in the past without any ill effect. She states that the only time that she had problem with it is whenever she took a pill from a Medrol Dosepak, which gave her a rash. This did not happen with any of the injections in the past. She states that her pain is still fairly moderate to severe, depending on how much activity she is doing and has not really dissipated at this point in time. OBJECTIVE: EXTREMITIES: On examination of the patient's left lower extremity, she initially points to somewhere in the posterolateral area near her buttock. There are no areas of erythema or overt swelling noted. Palpation however over the left greater trochanter elicits moderate pain response from the patient. She is not having any of this pain further below the trochanteric bursa and states that it does radiate a little bit back towards the posterolateral area, especially with ambulation. ASSESSMENT: Likely trochanteric bursitis. PLAN: At this time, after discussing with the patient, I am comfortable with going ahead and giving her a trochanteric bursa injection with 40 mg of methylprednisolone. It has been discussed between several of the consulting physicians about having a spine consult performed and that will be placed by Dr. Loredo at this time to assess her lumbar spine MRI. I have discussed also the injection with pharmacy to discuss the patient's reactions to her previous medications, to let them know that we will be ordering the methylprednisolone as well and we will plan on giving her a left trochanteric bursa injection here this morning.
[2016-11-08] MEDS: PROMETHAZINE HCL 25 MG TAB PO PRN ×3 (10:48→23:57)
[2016-11-08] MEDS ORDERED: ALUMINUM/MAGNESIUM/SIMETH (MAALOX MAX) 30 ML UDC PO STA (11:25)
--- NOTE | 2016-11-08 11:32 | ORTHOPEDIC PROGRESS NOTE ---
DATE: 11/08/2016 PROCEDURE AND PROGRESS NOTE SUBJECTIVE: As discussed in my earlier in progress note, we had discussed with the patient about giving her an injection in the left trochanteric bursa. This was discussed with Dr. Idalmis Loredo with the patient through pharmacy as well and I am here now to inject the left trochanteric bursa. OBJECTIVE: The patient's left trochanteric area was palpated and the point of tenderness was located and marked with an indentation marked from a pen. At that point in time, an alcohol swab was used to swab the area and then 3 Betadine swabs were used to cleanse that area as well and let to dry. At that point in time, 40 mg of methylprednisolone along with 3 mL of 0.5% Marcaine with epinephrine were injected into the left trochanteric bursa area where she is having most of the pain. There was no trouble in injecting medication and the needle was withdrawn and a 2 x 2 was used with a small amount of pressure, placed over the injection site. After approximately 30 seconds, the 2 x 2 was taken away, there is no active bleeding and a Band-Aid was placed over the site. The patient tolerated the procedure well. ASSESSMENT: Left trochanteric bursitis. PLAN: The patient can be up and ambulating as tolerated as far as general orthopedics is concerned. A spine consult has been placed for [facility] spine team, who will see the patient hopefully later today. We can continue to assess the patient to see how the shot is working if she continues to remain in the hospital. If she is discharged today then she can follow up with Dr. Rangel in the office for her left trochanteric bursitis, if it continues.
--- NOTE | 2016-11-08 14:28 | Progress Note ---
Subjective Date of Service: Nov 08, 2016. Subjective Pt evaluation today including: conversation w/ patient, conversation w/ family Pt seen just after injection and had no been OOB yet. Having increased reflux after being off of her usual GERD medication with some epigastric pain. Pt denies fever, SOB, chest pain, n/v, LE pain or swelling. Diarrhea is improving with resuming linzes. ROS as noted above, otherwise neg. Problem List Medical Problems: (1) Abdominal pain Status: Acute (2) Abdominal pain Status: Acute (3) ANXIETY STATE NOS Status: Chronic (4) Back pain Status: Acute (5) Contusion of left foot Status: Acute (6) Hip pain, left Status: Acute (7) Injury of left foot Status: Acute (8) Intractable abdominal pain Status: Acute (9) Left upper quadrant pain Status: Acute (10) Vertigo Status: Acute Objective Vital Signs Date Time Temp Pulse Resp B/P Pulse Ox O2 Delivery O2 Flow Rate FiO2 11/08/16 11:02 Room Air 11/08/16 08:40 80 124/77 11/08/16 07:14 36.8 65 17 103/65 91 Room Air 11/07/16 23:10 Room Air 11/07/16 22:55 37.0 66 18 109/72 95 Room Air 11/07/16 15:15 Room Air 11/07/16 14:56 37.1 63 18 105/68 95 Room Air Physical Exam Comments: General Appearance: no apparent distress, + obese Respiratory/Chest: normal breath sounds, no respiratory distress Cardiovascular: regular rate, rhythm, no edema Abdomen: TTP in epigastric area that radiates into mid-sternal region, soft Extremities: non-tender, no pedal edema Neurologic/Psychiatric: alert, oriented x 3 Skin: normal color, warm/dry Assessment and Plan 51 y/o F who was admitted for observation for intractable L hip/LE pain 1. Left lumbar radiculopathy - started on gabapentin 300 mg TID - pain management on board - still requiring IV pain meds for relief - MRI noted - Trochanteric bursa injection 11/08 - PT/OT evaluation and will need to determine if she'll need acute rehab vs home health visits 2. Hypertension - Continue lisinopril, hctz, metoprolol 3. Hypercholesterolemia - Continue simvastatin 4. Hypothyroidism Continue levothyroxine 5. Depression/Anxiety - Continue Lexapro - Klonopin 6. Gastroparesis - Continue metoclopramide - Continue promethazine 7. DVT prophylaxis - Lovenox 40 mg subcutaneous daily PT recs for home vs possible rehab if no improvement
[2016-11-08 15:20] VITALS: BP 109/65; PULSE 71; TEMP 37; O2SAT 94
[2016-11-08] MEDS: METOCLOPRAMIDE HCL 10 MG TAB PO PRN (20:04)
[2016-11-08] MEDS: SIMVASTATIN 40 MG TAB PO SCH (20:05)
[2016-11-08] MEDS: LISINOPRIL 10 MG TAB PO SCH (20:06)
[2016-11-08] MEDS: ONDANSETRON INJ 2 MG/ML 2 ML VIAL IV PRN (20:10)
[2016-11-08] MEDS: ALUMINUM/MAGNESIUM/SIMETH (MAALOX MAX) 30 ML UDC PO PRN (22:36)
[2016-11-08 23:05] VITALS: BP 111/67; PULSE 63; TEMP 37; O2SAT 92
[2016-11-09] MEDS: LEVOTHYROXINE 100 MCG TAB PO SCH (05:36)
[2016-11-09] MEDS: OXYCODONE/ACETAMINOPHEN 7.5-325 TAB PO PRN ×4 (07:25→23:54)
[2016-11-09 07:43] VITALS: BP 96/61; PULSE 64; TEMP 37; O2SAT 94
[2016-11-09 08:00] VITALS: O2SAT 94
[2016-11-09] MEDS: CLONAZEPAM 1 MG TAB PO SCH ×2 (08:19→16:18)
[2016-11-09] MEDS: LINACLOTIDE 145 MCG PO SCH (08:21)
[2016-11-09] MEDS: OMEPRAZOLE 40 MG CAP PO SCH (08:21)
[2016-11-09] MEDS: METOPROLOL TARTRATE 25 MG TAB PO SCH ×2 (08:24→20:46)
[2016-11-09] MEDS: LORATADINE 10 MG TAB PO SCH (08:26)
[2016-11-09] MEDS: GABAPENTIN 300 MG CAP PO SCH ×3 (08:26→20:45)
[2016-11-09] MEDS: ESCITALOPRAM OXALATE 10 MG TAB PO SCH (08:26)
[2016-11-09] MEDS: ESCITALOPRAM OXALATE 20 MG TAB PO SCH (08:26)
[2016-11-09] MEDS: ENOXAPARIN 40 MG/0.4 ML SYR SQ SCH (09:34)
[2016-11-09] MEDS: ACETAMINOPHEN 325 MG TAB PO PRN (09:46)
--- NOTE | 2016-11-09 10:12 | Orthopedic Progress Note ---
Orthopedic Progress Note Date of Service Nov 09, 2016. Subjective Additional Notes: Pt sleeping when I entered her room. Easily woken up. States her hip is still a bit sore but tolerating well. Has not been seen by spine team yet. Objective Date Time Temp Pulse Resp B/P Pulse Ox O2 Delivery O2 Flow Rate FiO2 11/09/16 07:43 37.0 64 19 96/61 94 Room Air 11/09/16 00:40 Room Air 11/08/16 23:05 37.0 63 16 111/67 92 Room Air 11/08/16 15:20 37.0 71 18 109/65 94 Room Air 11/08/16 11:02 Room Air Assessment & Plan Assessment: Left Trochanteric Bursitis; Low back pain with radiculopathy Plan: Discussed with patient that it might take 24/48 hours to get the benefits from the injection given in the hip. Pt understands. Continue ambulating as tolerated [facility] spine team to see today.
[2016-11-09] MEDS: HYDROmorphone INJ 1 MG/ML SYR IV PRN ×3 (10:41→20:35)
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
[2016-11-09 15:39] VITALS: BP 99/52; PULSE 67; TEMP 36.8; O2SAT 92
[2016-11-09 20:43] VITALS: BP 121/57; PULSE 66
[2016-11-09] MEDS: PROMETHAZINE HCL 25 MG TAB PO PRN (20:44)
[2016-11-09] MEDS: LISINOPRIL 10 MG TAB PO SCH (20:45)
[2016-11-09] MEDS: SIMVASTATIN 40 MG TAB PO SCH (20:46)
[2016-11-09 23:02] VITALS: BP 145/71; PULSE 72; TEMP 36.8; O2SAT 93
[2016-11-10] MEDS: HYDROmorphone INJ 1 MG/ML SYR IV PRN ×7 (01:38→23:35)
[2016-11-10] MEDS: OXYCODONE/ACETAMINOPHEN 7.5-325 TAB PO PRN ×5 (04:00→21:50)
[2016-11-10] MEDS: LEVOTHYROXINE 100 MCG TAB PO SCH (05:40)
[2016-11-10] MEDS: ALUMINUM/MAGNESIUM/SIMETH (MAALOX MAX) 30 ML UDC PO PRN (05:41)
[2016-11-10 06:52] LABS: HEMATOCRIT 39.9 % (37-47); MEAN CELL VOLUME 89.9 fL (80-100); MEAN CORPUSCULAR HEMOGLOBIN 29.7 pg (25-34); MEAN CORPUSCULAR HGB CONC 33.1 g/dl (32-36); MEAN PLATELET VOLUME 10.1 fL (7.4-10.4); PLATELET COUNT 217 K/uL (130-400); RED BLOOD COUNT 4.44 M/uL (4.2-5.4); WHITE BLOOD COUNT 7.23 K/uL (4.8-10.8)
[2016-11-10 07:19] LABS: CREATININE 1.1 mg/dl (0.60-1.20)
[2016-11-10 07:32] VITALS: BP 102/62; PULSE 61; TEMP 37; O2SAT 94
[2016-11-10] MEDS: LINACLOTIDE 145 MCG PO SCH (07:51)
[2016-11-10] MEDS: ENOXAPARIN 40 MG/0.4 ML SYR SQ SCH (07:51)
[2016-11-10] MEDS: CLONAZEPAM 1 MG TAB PO SCH ×2 (07:51→17:33)
[2016-11-10] MEDS: ESCITALOPRAM OXALATE 20 MG TAB PO SCH (07:52)
[2016-11-10] MEDS: LORATADINE 10 MG TAB PO SCH (07:56)
[2016-11-10] MEDS: METOPROLOL TARTRATE 25 MG TAB PO SCH ×2 (07:56→21:52)
[2016-11-10] MEDS: ESCITALOPRAM OXALATE 10 MG TAB PO SCH (07:56)
[2016-11-10] MEDS: GABAPENTIN 300 MG CAP PO SCH ×3 (07:56→21:53)
[2016-11-10] MEDS: OMEPRAZOLE 40 MG CAP PO SCH (07:57)
[2016-11-10] MEDS ORDERED: MAGNESIUM HYDROXIDE SUSP 30 ML UDC PO PRN (11:45)
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
[2016-11-10] MEDS: PROMETHAZINE HCL 25 MG TAB PO PRN ×2 (12:01→19:09)
[2016-11-10] MEDS ORDERED: MAGNESIUM HYDROXIDE SUSP 30 ML UDC PO ONE (12:04)
[2016-11-10] MEDS: POLYETHYLENE (MIRALAX) 17 GM PACK PO PRN (15:47)
[2016-11-10 15:55] VITALS: BP 122/81; PULSE 63; TEMP 37.1; O2SAT 93
[2016-11-10] MEDS: METOCLOPRAMIDE HCL 10 MG TAB PO PRN (19:09)
[2016-11-10 21:50] VITALS: BP 130/83; PULSE 61
[2016-11-10] MEDS: LISINOPRIL 10 MG TAB PO SCH (21:50)
[2016-11-10] MEDS: SIMVASTATIN 40 MG TAB PO SCH (21:52)
[2016-11-10 22:55] VITALS: BP 122/74; PULSE 61; TEMP 37.1; O2SAT 94
[2016-11-11] MEDS: HYDROmorphone INJ 1 MG/ML SYR IV PRN ×3 (03:55→11:43)
[2016-11-11] MEDS: LEVOTHYROXINE 100 MCG TAB PO SCH (04:00)
[2016-11-11] MEDS: PROMETHAZINE HCL 25 MG TAB PO PRN ×2 (04:00→22:27)
[2016-11-11] MEDS: OXYCODONE/ACETAMINOPHEN 7.5-325 TAB PO PRN ×3 (04:30→15:13)
[2016-11-11 07:05] VITALS: BP 117/68; PULSE 58; TEMP 36.9; O2SAT 92
[2016-11-11] MEDS: ESCITALOPRAM OXALATE 10 MG TAB PO SCH (08:49)
[2016-11-11] MEDS: METOPROLOL TARTRATE 25 MG TAB PO SCH ×2 (08:49→20:41)
[2016-11-11] MEDS: LORATADINE 10 MG TAB PO SCH (08:49)
[2016-11-11] MEDS: GABAPENTIN 300 MG CAP PO SCH ×2 (08:49→13:23)
[2016-11-11] MEDS: ESCITALOPRAM OXALATE 20 MG TAB PO SCH (08:49)
[2016-11-11] MEDS: CLONAZEPAM 1 MG TAB PO SCH ×2 (08:49→18:10)
[2016-11-11] MEDS: LINACLOTIDE 145 MCG PO SCH (08:50)
[2016-11-11] MEDS: OMEPRAZOLE 40 MG CAP PO SCH (08:51)
[2016-11-11] MEDS: ENOXAPARIN 40 MG/0.4 ML SYR SQ SCH (08:51)
[2016-11-11] MEDS: POLYETHYLENE (MIRALAX) 17 GM PACK PO PRN (08:53)
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
[2016-11-11] MEDS ORDERED: OXYCODONE HCL IR 5 MG TAB (IMMEDIATE RELEASE) PO STA (12:51)
[2016-11-11] MEDS: OXYCODONE HCL 15 MG TABCR (OXYCONTIN) PO SCH ×2 (14:06→20:46)
[2016-11-11 15:43] VITALS: BP 109/65; PULSE 62; TEMP 36.9; O2SAT 92
[2016-11-11] MEDS ORDERED: HYDROmorphone INJ 1 MG/ML SYR IV PRN (17:00)
[2016-11-11] MEDS: HYDROmorphone INJ 0.5 MG/0.5 ML SYR IV PRN (18:10)
[2016-11-11] MEDS: GABAPENTIN 400 MG CAP PO SCH ×2 (18:10→20:42)
[2016-11-11 20:41] VITALS: BP 118/66; PULSE 67
[2016-11-11] MEDS: SIMVASTATIN 40 MG TAB PO SCH (20:42)
[2016-11-11] MEDS: LISINOPRIL 10 MG TAB PO SCH (20:43)
[2016-11-11] MEDS: ACETAMINOPHEN 500 MG TAB PO SCH (21:37)
[2016-11-11] MEDS: ONDANSETRON INJ 2 MG/ML 2 ML VIAL IV PRN (22:20)
[2016-11-11 23:36] VITALS: BP 125/73; PULSE 57; TEMP 37; O2SAT 96
[2016-11-12] MEDS: HYDROmorphone INJ 0.5 MG/0.5 ML SYR IV PRN ×2 (00:38→05:37)
[2016-11-12] MEDS: PROMETHAZINE HCL 25 MG TAB PO PRN (04:30)
[2016-11-12] MEDS: ACETAMINOPHEN 500 MG TAB PO SCH ×2 (05:37→13:15)
[2016-11-12] MEDS: LEVOTHYROXINE 100 MCG TAB PO SCH (05:37)
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
[2016-11-12 07:43] VITALS: BP 84/46; PULSE 59; TEMP 36.7; O2SAT 90
[2016-11-12 07:45] VITALS: BP 150/75
[2016-11-12] MEDS ORDERED: OXYCODONE/ACETAMINOPHEN 7.5-325 TAB PO PRN (09:00)
[2016-11-12] MEDS ORDERED: DULOXETINE (CYMBALTA) 30 MG CAP PO SCH (09:00)
[2016-11-12] MEDS: CLONAZEPAM 1 MG TAB PO SCH (09:44)
[2016-11-12] MEDS: POLYETHYLENE (MIRALAX) 17 GM PACK PO PRN (09:45)
[2016-11-12] MEDS: BACLOFEN 10 MG TAB PO SCH ×2 (09:45→17:25)
[2016-11-12] MEDS: GABAPENTIN 600 MG TAB PO SCH ×2 (09:45→13:14)
[2016-11-12] MEDS: LORATADINE 10 MG TAB PO SCH (09:45)
[2016-11-12] MEDS: METOPROLOL TARTRATE 25 MG TAB PO SCH (09:45)
[2016-11-12] MEDS: OMEPRAZOLE 40 MG CAP PO SCH (09:46)
[2016-11-12] MEDS: LINACLOTIDE 145 MCG PO SCH (09:46)
[2016-11-12] MEDS: ENOXAPARIN 40 MG/0.4 ML SYR SQ SCH (09:47)
--- NOTE | 2016-11-12 11:17 | PROGRESS NOTE ---
DATE: 11/12/2016 INPATIENT FOLLOWUP NOTE CHIEF COMPLAINT: Left-sided hip pain. HISTORY OF PRESENT ILLNESS: I saw 51-year-old Ms. Ulysses Marcum today at the [facility]. She reports continued left-sided hip pain with radicular symptoms down into her great toe. She reports that walking with a walker allows her to be ambulatory, but is still having pain despite a greater trochanteric bursa injection performed by orthopedics this admission, as performed on 11/08/2016. She was also evaluated by ortho spine, which I did not feel that surgical intervention was warranted as there was not any significant neural compression on her MRI. The patient reports that pain currently ranges between 6 and 10/10, worse with ambulation, better with rest. She is concerned that [place] and [place] 5 children that will be a challenge for her to recuperate at home but she does report moderate efficacy from gabapentin at this time. PAST MEDICAL, PAST SURGICAL, FAMILY AND SOCIAL HISTORY: Reviewed. MEDICATIONS AND ALLERGIES: Reconciled as per EMR. REVIEW OF SYSTEMS: A 10-point review of systems is negative aside from HPI. PHYSICAL EXAMINATION: VITAL SIGNS: Blood pressure is 150/75, pulse 57, respirations 18, temperature 36.7 degrees centigrade, 90-96% pulse oximetry on room air. GENERAL: She appears her stated age of [age] years old, is awake, alert and oriented x3, appearing in no acute distress with appropriate speech and thought processes and clear sensorium. BACK AND SPINE: She moves easily in bed. She has tenderness over her insertion point of her left piriformis. She has mild tenderness over her greater trochanteric left-sided bursa. She is minimally tender over her axial lumbar spine. She has adequate flexion, sidebending and rotation of her lumbar spine. She is nontender over her bilateral SI joint. NEUROLOGICAL: She has a negative straight leg raise bilaterally with 5/5 strength bilateral lower extremities equal throughout with intact sensation. She has 2+ DTRs of bilateral L4 and S1. Gait was not observed, but the patient log rolls in bed without difficulty. ASSESSMENT: 1. Left greater trochanteric bursitis. 2. Left-sided hip pain. 3. Pain at insertion of left piriformis. TREATMENT: 1. I will increase her gabapentin to 600 mg p.o. t.i.d. Hopefully, this will diminish some of her radicular symptoms. 2. Will plan to convert her Lexapro to Cymbalta 30 mg p.o. daily, to better diminish her pain burden. 3. Will stop the OxyContin at this time and transition her back to Percocet 7.5/325 mg 1 p.o. q. 6 p.r.n. 4. Will also initiate Baclofen 10 mg p.o. q. 8 to diminish some of her discomfort of her piriformis. 5. I have recommended the patient work with outpatient physical therapy to further diminish her pain, but would recommend holding on further interventional therapy at this time to allow full effect of the greater trochanteric bursa injection which may take 2 weeks. Thank you very much for this consultation. We will sign off at this point.
[2016-11-12] MEDS ORDERED: CYM30 PO (11:45)
[2016-11-12] MEDS ORDERED: NRN600 PO (11:45)
[2016-11-12] MEDS ORDERED: OXYC7.5T62 PO (11:45)
[2016-11-12] MEDS ORDERED: LRS10 PO (11:45)
--- NOTE | 2016-11-12 11:55 | Discharge Instructions ---
Discharge Instructions Admission Reason for Admission: Left Hip Pain, Lumbar Radiculopathy Discharge Discharge Diagnosis / Problem: Lumbar radiculopathy, left hip bursitis Discharge Goals Goal(s): Decrease discomfort, Improve function, Increase independence Activity Recommendations Activity Limitations: per Instructions/Follow-up section Lifting Limitations: gradually increase as tolerated Exercise/Sports Limitations: gradually increase as tolerated May Resume Sexual Activity: when tolerated Shower/Bathe: no limitations Driving or Machine Use: Do NOT drive while taking oxycodone or baclofen as this can make you drowsy and you can be charged with a DUI if pulled over by a police lieutenant. . Instructions / Follow-Up Instructions / Follow-Up You were admitted to [facility] with left hip pain and lumbar radiculopathy and diagnosed with the same. During your stay here you were treated with intravenous pain medication, fluids , and other medications were adjusted. Pain management saw you while in the hospital and the following changes were made: Gabapentin was titrated 300 mg three times daily Cymbalta was started for chronic pain relief at 30 mg daily. This can be titrated up by your psychiatrist. While cymbalta is starting, you will be titrated off of Lexapro. Your dosage of lexapro has been reduced from 30 mg to [address] Andrade to determine if your dose should be further reduced or if you should remain on this medication for your mood. Baclofen was added to your regimen for muscle spasms/pain every 8 hours as needed. Endocet 7.5/325 was used while in the hospital every 6 hours when needed Imaging studies which were completed include lumbar spine MRI: this showed no acute bony abnormality, multiple small disc bulges through L1-S1 without spinal cord compromise, no large disc herniation or significant central canal stenosis , + Lumbosacral spondylosis. Continue taking your medications as directed. Follow up with Pain management clinic within 1-2 weeks. Follow up with PCP within 1 week. Follow up with Dr. Andrade, psychiatry, within 2 weeks. Current Hospital Diet Patient's current hospital diet: Regular Diet Discharge Diet Recommended Diet: AHA Diet (Heart Healthy) Procedures Procedures Performed: MRI lumbar Spine 11/04/16 Pending Studies Studies pending at discharge: no Medical Emergencies . Who to Call and When: Medical Emergencies: If at any time you feel your situation is an emergency, please call 911 immediately. . Non-Emergent Contact Non-Emergency issues call your: Primary Care Provider Call Non-Emergent contact if: temperature is above 100.5, your pain is not controlled, your pain is worsening, your pain is unusual for you, your pain is concerning you, you have any medication questions . Past History Medical & Surgical History: (1) Lumbar radiculopathy (2) Left hip pain . "Provider Documentation" section prepared by Lisa Elise. VTE Core Measure Inpt VTE Proph given/why not?: Enoxaparin (Lovenox)[place] Drug Monitoring Program Search Results: patient reviewed within database
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
[2016-11-12] MEDS ORDERED: ESCITALOPRAM OXALATE 20 MG TAB PO SCH (12:30)
[2016-11-12 13:25] VITALS: BP 150/75; PULSE 59; TEMP 36.7; O2SAT 90
[2016-11-12] MEDS ORDERED: GABAPENTIN 400 MG CAP PO SCH (14:30)
[2016-11-12] MEDS ORDERED: NRN300 PO (14:54)
[2016-11-12 15:54] VITALS: BP 133/73; PULSE 66; TEMP 36.7; O2SAT 95
[2016-11-12] MEDS ORDERED: CLONAZEPAM 1 MG TAB PO PRN (17:45)
[2016-11-12] MEDS ORDERED: GABAPENTIN 300 MG CAP PO SCH (21:00)
[2016-11-12] MEDS ORDERED: GABAPENTIN 600 MG TAB PO SCH (21:00)
[2017-02-18] MEDS ORDERED: DFL100 PO (10:30)
[2017-02-18] MEDS ORDERED: GLC500 PO (10:30)
[2017-02-18] MEDS ORDERED: CPR500 PO (10:30)
== END 2016-11-12 20:05 | disposition home health service (06) ==
LOC: ENRESERVDT → ENRESERVTM → C.EDB 15:28 → C.MSN 21:34
PROVIDERS: ADMIT Student in an Organized Health Care Education/Training Program; ATTEND Physician Assistant
DX: M47.817 Spondylosis without myelopathy or radiculopathy, lumbosacral region (principal); M70.62 Trochanteric bursitis, left hip; K21.9 Gastro-esophageal reflux disease without esophagitis; I10 Essential (primary) hypertension; E78.5 Hyperlipidemia, unspecified; E03.9 Hypothyroidism, unspecified; E78.00 Pure hypercholesterolemia, unspecified; M19.90 Unspecified osteoarthritis, unspecified site; I65.23 Occlusion and stenosis of bilateral carotid arteries; K31.84 Gastroparesis; E66.9 Obesity, unspecified; F32.9 Major depressive disorder, single episode, unspecified; Z88.2 Allergy status to sulfonamides; Z83.3 Family history of diabetes mellitus; Z82.49 Family history of ischemic heart disease and other diseases of the circulatory system; Z84.1 Family history of disorders of kidney and ureter; Z82.0 Family history of epilepsy and other diseases of the nervous system

== ENCOUNTER 2017-02-06 | Observation (INO) | payer OTHER ==
[~2017-02-06] VITALS: Ht 154.9 cm; Wt 104.1 kg
[2017-02-06] VITALS (7 sets, daily range): BP systolic 103–137; BP diastolic 58–74; PULSE 55–63; TEMP 36.4–36.7; O2SAT 94–96; Ht 154.9 cm; Wt 104.1 kg
[~2017-02-06] MED LIST changes: +CLON1TAB3 PO; +CYM30 PO; +FERR1TAB23 PO; -GLC/500 PO; +HYDR25TA5 PO; +IBUP-1277 PO; +LEVO100T7 PO; +LINA1CAP PO; +LISI-461 PO; +LORA10TA5 PO; +LRS10 PO; +LXP/20 PO; +METO25TA56 PO; +NRN300 PO; +OMEP40CA41 PO; -OXYC1TAB3 PO; +OXYC7.5T62 PO; +ZCR40 PO
[2017-02-06] MEDS ORDERED: MoRPHine SULFATE 4 MG/ML 1 ML CARP\\VIAL IV STA ×2 (00:14→01:22)
[2017-02-06] MEDS ORDERED: PROMETHAZINE HCL INJ 25 MG in SODIUM CHLORIDE 0.9% 50ML 50 ML IV STA (00:36)
[2017-02-06] MEDS ORDERED: ESCI1TAB9 PO (02:07)
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
[2017-02-06] MEDS ORDERED: OXYCODONE IR HOME PACK PO ONE (02:15)
[2017-02-06] MEDS ORDERED: CLON1TAB3 PO (02:16)
--- NOTE | 2017-02-06 04:56 | History and Physical ---
History & Physical Date & Time of Service: February 06, 2017 at 04:49 Chief Complaint: FALL Primary Care Physician: Marcie Hernández History of Present Illness Source: patient, hospital records Mrs Marcum is a 51 year old female with chronic left hip pain who fell on her left hip around 4-5 feet today onto a stone surface. She reports also hitting her head. She denies any chest pain, dizziness, shortness of breath before falling. Feels her pain in her leg caused her to fall. She crawled into her house after the fall and had a headache and vomited which I discussed with the ER PA who reported asking the patient directly whether she had any headache or vomiting and the patient told her she did not. Mrs Marcum has known chronic trochanteric bursitis and radiculopathy. She was admitted in October for hip pain and was seen by the pain team on that occasion. Plan was to get her to rehabilitation at that time but she improved enough while in hospital and therefore she was discharged home with plans for outpatient physical therapy. She reports she was unable to do this due to problems with the cost and her insurance company not covering the admission therefore it didn't happen. She had good results with a steroid injection for trochanteric bursitis but as that wore off she started needing more opiates again. In the ER she received moprhine but reports very little change in her pain with this. Initial plan was to discharge home but she feels she is unable to cope at home due to the pain. She lives with her family but reports they have their own things going on and are not supportive and cannot look after her. Past Medical/Surgical History Medical Problems: (1) ANXIETY STATE NOS Status: Chronic (2) Bilateral lower extremity edema Status: Resolved (3) Bilateral lower extremity edema Status: Resolved (4) Corneal abrasion, left Status: Resolved (5) ENDOMETRIOSIS NOS Status: Chronic (6) ESOPHAGEAL REFLUX Status: Chronic (7) HYPERLIPIDEMIA NEC/NOS Status: Chronic (8) HYPERTENSION NOS Status: Chronic (9) HYPOTHYROIDISM NOS Status: Chronic (10) IRON DEFIC ANEMIA NOS Status: Chronic (11) MEL-PELAYO SYNDROME Status: Resolved (12) OSTEOARTHROS NOS-UNSPEC Status: Chronic (13) Puncture wound of left foot Status: Resolved (14) Puncture wound of left foot Status: Resolved (15) Thumb fracture Status: Resolved Family History Diabetes mellitus FH: heart disease FHx: gallbladder disease Hypertension Kidney disease Kidney stones Seizures Social History Smoking Status: Never Smoker Drug Use: none Marital Status: Housing status: lives with family Occupational Status: unemployed Immunizations History of Influenza Vaccine: N/A History of Tetanus Vaccine?: utd History of Pneumococcal: No History of Hepatitis B Vaccine: No Multi-Drug Resistant Organisms History of MDRO: No Allergies Coded Allergies: Methylprednisolone (Verified Allergy, Mild, RASH, 02/06/17) Ondansetron (Verified Allergy, Mild, Cardiac symptoms , 02/06/17) Pt states d/t cardiac issue, prolonged QT interval, she is unable to take zofran- requests to be put on her allergy list Erythromycin (Verified Allergy, Unknown, RASH, 02/06/17) Sulfa Antibiotics (Verified Allergy, Unknown, RASH, 02/06/17) Hydromorphone (Verified Adverse Reaction, Intermediate, confusion, 02/06/17 ) Home Medications Scheduled Ascorbic Acid (Vitamin C), 500 MG PO QAM Escitalopram Oxalate (Escitalopram Oxalate), 20 MG PO QAM Escitalopram Oxalate (Lexapro), 10 MG PO DAILY Ferrous Sulfate (Iron), 325 MG PO HS Levothyroxine Sodium (Levothyroxine Sodium), 100 MCG PO QAM Linaclotide (Linzess), 145 MCG PO QAM Lisinopril (Lisinopril), 10 MG PO QPM Loratadine (Claritin), 10 MG PO QAM Metoprolol Tartrate (Lopressor) (Lopressor), 25 MG PO BID Omeprazole (Prilosec), 40 MG PO QAM Simvastatin (Simvastatin), 40 MG PO HS Scheduled PRN Baclofen (Baclofen), 10 MG PO Q8H PRN for Muscle Spasms Clonazepam (Klonopin), 1 MG PO TID PRN for Anxiety Hydrochlorothiazide (Hydrochlorothiazide), 25 MG PO DAILY PRN for Swelling Ibuprofen (Advil), 400 MG PO Q6H PRN for Pain Metoclopramide (Reglan), 10 MG PO UD PRN for GASTROPARESIS Promethazine Hcl (Phenergan), 25 MG PO Q6H PRN for Nausea Review of Systems Constitutional: No chills, No fever Eyes: No worsening of vision ENT: No hearing loss Respiratory: No cough, No shortness of breath, No sputum Cardiovascular: No chest pain Abdomen: No nausea, No pain Musculoskeletal: + joint pain, + muscle pain Genitourinary - Female: No dysuria, No urinary frequency, No urinary incontinence, No urinary urgency Integumentary: No itch, No rash Physical Exam Vital Signs Date Time Temp Pulse Resp B/P Pulse Ox O2 Delivery O2 Flow Rate FiO2 02/06/17 03:58 65 18 112/47 94 Room Air 02/06/17 01:58 70 18 125/54 96 Room Air 02/06/17 00:25 69 24 109/48 98 Room Air 02/06/17 00:06 36.7 67 22 98/56 97 Room Air General Appearance: + mild distress, + obese Head: normocephalic, atraumatic Eyes: normal inspection, PERRL, EOMI Neck: supple, trachea midline Respiratory/Chest: chest non-tender, lungs clear, normal breath sounds, no respiratory distress, no accessory muscle use Cardiovascular: regular rate, rhythm, no edema, normal peripheral pulses Abdomen/GI: normal bowel sounds, non tender, soft Back: no CVA tenderness, + muscle spasm Extremities/Musculoskelatal: normal inspection (no swelling or ecchymosis), no calf tenderness, normal capillary refill, + pedal edema (trace b/l) Neurologic/Psych: 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 Admission as she is unable to return home for fears of not being able to cope. Fall - no concerning features contributing towards the fall, she has chronic gait disturbance and thinks her pain caused her to fall. Slightly unclear history as initially told PA in ER no vomiting or headache but she reports she had both of these post fall. No ecchymosis as result of fall - will get neuro checks if starts having focal neurology consider CT head - PT/OT - if unable to ambulate may have to consider further imaging of her hip. If distracted however her hip can be moved without her grimacing and her severity score of 9-10/10 does not fit - will likely need rehabilitation as not coping at home Chronic pain - I would avoid opiates given this is chronic and she had minimal relief with morphine in the ER. - If withdrawal symptoms and BP increases then could consider clonidine - previously intolerant to gabapentin or pregabalin - acetaminophen + ibuprofen PRN - baclofen for muscle spasms - Will consult pain management Hypertension - currently running low therefore will hold her PTSD - continue lexapro refused switching to cymbalta for chronic pain Elevated glucose - she denies Hx of diabetes -> ordered HbA1C to diagnose Hypothyroidism - Continue outpatient levothyroxine VTE Prophylaxis - Lovenox 40 mg SQ daily Code - Full Disposition - observation status to med/surg. PT/OT/discharge planning. Plan to get her to rehabilitation Level of Care Med/Surg Resuscitation Status FULL RESUSCITATION VTE Prophylaxis VTE Risk Assessment Done? Y/N: Yes Risk Level: Moderate Given or contraindicated: Enoxaparin (Lovenox)SQ Resident Tracking Resident Involvement: Resident Care Provided Care Provided: Adult [facility] Medicine Assessment and Plan Attending Addendum: I have physically seen and examined this patient, have directed their medical care, have supervised the medical residents activities, and agree with the H&P as noted above, with the following changes: NONE
[2017-02-06] MEDS ORDERED: BACLOFEN 10 MG TAB PO STA (04:57)
[2017-02-06] MEDS ORDERED: IBUPROFEN 200 MG TAB PO PRN (05:00)
[2017-02-06] MEDS ORDERED: HYDROCHLOROTHIAZIDE 25 MG TAB PO PRN (05:00)
[2017-02-06] MEDS ORDERED: BACLOFEN 10 MG TAB PO PRN (05:00)
[2017-02-06 05:50] LABS: BASO % 0.1 %; BASO ABS # 0.01 K/uL (0-0.2); BUN/CREATININE RATIO 9.2 (10-20); CALCIUM 9.1 mg/dl (8.5-10.1); COMPLETE YES; EOS % 1.1 %; HEMATOCRIT 38.8 % (37-47); IG% 0.1 %; LYMPH % 46.4 %; LYMPH ABS # 3.28 K/uL (1.2-3.4); MEAN CELL VOLUME 90.4 fL (80-100); MEAN CORPUSCULAR HEMOGLOBIN 30.3 pg (25-34); MEAN CORPUSCULAR HGB CONC 33.5 g/dl (32-36); MEAN PLATELET VOLUME 10.1 fL (7.4-10.4); MONO % 5.9 %; NEUT % 46.4 %; PLATELET COUNT 233 K/uL (130-400); POTASSIUM 3.7 mmol/L (3.5-5.1); RED BLOOD COUNT 4.29 M/uL (4.2-5.4); WHITE BLOOD COUNT 7.07 K/uL (4.8-10.8)
[2017-02-06] MEDS ORDERED: IV FLUIDS COMPLETED PRN (06:30)
[2017-02-06 06:36] LABS: ESTIMATED AVERAGE GLUCOSE 166 mg/dl; HA1C FLAG Normal (Normal)
--- NOTE | 2017-02-06 07:30 | DIAGNOSTIC IMAGING REPORT ---
LEFT KNEE 1 OR 2 VIEWS ROUTINE CLINICAL HISTORY: Left knee pain status post trauma COMPARISON: None. DISCUSSION: No fractures or dislocations are visualized. There is a small calcific/ossific density adjacent to the proximal fibular tip. This is not felt to be acute IMPRESSION: No acute fractures identified. Electronically signed by: Tim Ulrich M.D. 02/06/2017 7:29 AM Dictated Date/Time: 02/06/2017 7:28 AM
--- NOTE | 2017-02-06 07:33 | DIAGNOSTIC IMAGING REPORT ---
PELVIS 1 OR 2 VIEW ROUTINE, LEFT FEMUR 2 VIEWS ROUTINE, SACRUM COCCYX MIN 2 VIEWS CLINICAL HISTORY: fall, left hip pain COMPARISON STUDY: Pelvis 09/02/2016. FINDINGS: No fracture or dislocation within the pelvis or hips. The sacrum and left femur are intact. The coccyx is well aligned. Soft tissues are unremarkable. IMPRESSION: No fracture or dislocation within the pelvis, hips, sacrum, or left femur. Electronically signed by: Curry Monson M.D. 02/06/2017 7:32 AM Dictated Date/Time: 02/06/2017 7:29 AM
[2017-02-06 07:47] LABS: PROTHROMBIN TIME (PATIENT) 10.5 SECONDS (9.0-12.0)
[2017-02-06] MEDS ORDERED: LINZESS~ORDER AWAITING ACTION SCH (08:00)
[2017-02-06] MEDS: LEVOTHYROXINE 100 MCG TAB PO SCH (08:02)
--- NOTE | 2017-02-06 08:20 | Family Medicine Progress Note ---
Progress Note Date of Service February 06, 2017. Subjective Pt evaluation today including: conversation w/ patient, physical exam, chart review, lab review Patient describes having chronic left hip pain, but acute exacerbation of symptoms since falling earlier today. She states pain starts in her hip and radiates down her leg, and she is unable to attain relief while sitting, standing or lying. No pain medication has thus far provided adequate relief. She had a corticosteroid inject earlier in October, but the relief diminished within 1 month. She feels desperate for relief. Constitutional: No chills, No fever Respiratory: No cough, No shortness of breath, No wheezing Cardiovascular: No chest pain, No edema, No palpitations Abdomen: No constipation, No diarrhea, No nausea, No pain, No vomiting Musculoskeletal: + joint pain (Left hip), + muscle pain Female : No dysuria, No hematuria Objective Vital Signs Date Time Temp Pulse Resp B/P Pulse Ox O2 Delivery O2 Flow Rate FiO2 02/06/17 07:49 36.7 59 18 106/68 96 Room Air 02/06/17 06:10 36.7 63 16 103/58 95 Room Air 02/06/17 05:55 64 18 93/50 93 02/06/17 03:58 65 18 112/47 94 Room Air 02/06/17 01:58 70 18 125/54 96 Room Air 02/06/17 00:25 69 24 109/48 98 Room Air 02/06/17 00:06 36.7 67 22 98/56 97 Room Air Physical Exam General Appearance: WD/WN, + moderate distress ENT: hearing grossly normal Neck: supple Respiratory/Chest: lungs clear, normal breath sounds, no respiratory distress, no accessory muscle use Cardiovascular: regular rate, rhythm, no murmur Abdomen: normal bowel sounds, non tender, soft Extremities: no pedal edema Neurologic/Psychiatric: alert, normal mood/affect, oriented x 3, + pertinent finding (Movement limited by pain) Skin: normal color, warm/dry, no rash, + pertinent finding ( appearing on left hip) Laboratory Results Results Past 24 Hours Test 02/06/17 00:12 02/06/17 07:11 Range/Units White Blood Count 7.07 4.8-10.8 K/uL Red Blood Count 4.29 4.2-5.4 M/uL Hemoglobin 13.0 12.0-16.0 g/dL Hematocrit 38.8 37-47 % Mean Corpuscular Volume 90.4 80-100 fL Mean Corpuscular Hemoglobin 30.3 25-34 pg Mean Corpuscular Hemoglobin Concent 33.5 32-36 g/dl Platelet Count 233 130-400 K/uL Mean Platelet Volume 10.1 7.4-10.4 fL Neutrophils (%) (Auto) 46.4 % Lymphocytes (%) (Auto) 46.4 % Monocytes (%) (Auto) 5.9 % Eosinophils (%) (Auto) 1.1 % Basophils (%) (Auto) 0.1 % Neutrophils # (Auto) 3.27 1.4-6.5 K/uL Lymphocytes # (Auto) 3.28 1.2-3.4 K/uL Monocytes # (Auto) 0.42 0.11-0.59 K/uL Eosinophils # (Auto) 0.08 0-0.5 K/uL Basophils # (Auto) 0.01 0-0.2 K/uL RDW Standard Deviation 44.0 36.4-46.3 fL RDW Coefficient of Variation 13.4 11.5-14.5 % Immature Granulocyte % (Auto) 0.1 % Immature Granulocyte # (Auto) 0.01 0.00-0.02 K/uL Sodium Level 143 136-145 mmol/L Potassium Level 3.7 3.5-5.1 mmol/L Chloride Level 107 98-107 mmol/L Carbon Dioxide Level 31 21-32 mmol/L Anion Gap 5.0 3-11 mmol/L Blood Urea Nitrogen 9 7-18 mg/dl Creatinine 1.00 0.60-1.20 mg/dl Est Creatinine Clear Calc Drug Dose 74.7 ml/min Estimated GFR () 76.1 Estimated GFR (Non- 65.6 BUN/Creatinine Ratio 9.2 10-20 Random Glucose 193 70-99 mg/dl Estimated Average Glucose 166 mg/dl Hemoglobin A1c 7.4 4.5-5.6 % Calcium Level 9.1 8.5-10.1 mg/dl Prothrombin Time 10.5 9.0-12.0 SECONDS Prothromb Time International Ratio 1.0 0.9-1.1 Assessment and Plan 51 year old female with chronic left hip pain with acute worsening s/p fall admitted for pain management Chronic pain - Narcotics held in view of chronic pain and minimal relief with morphine in the ER. Pain team consulted - recs appreciated. Patient previously intolerant to gabapentin and not keen to try pregabalin - Acetaminophen + ibuprofen PRN - Voltaren gel - Baclofen 20mg q6h - Depakote ER 500mg daily - Heat therapy - Check Vitamin D level, as low levels can exacerbate myofascial pain - If withdrawal symptoms and BP increases then could consider clonidine - Consider changing Lexapro to Cymbalta for bed bug exterminator management on discharge Fall - she has chronic gait disturbance and states her fall was mechanical since she was chasing her dog - different from story to night doctor to whom she told she thinks her pain caused her to fall. Slightly unclear history also as she initially told PA in ER no vomiting or headache but she reports she had both of these post fall. No ecchymosis as result of fall - Neuro checks, with consideration of CT head if focal deficits appear. - PT/OT - if unable to ambulate may have to consider further imaging of her hip. If distracted however her hip can be moved without her grimacing and her severity score of 9-10/10 does not fit - Possible ongoing rehabilitation upon discharge Hypertension - Metoprolol 25mg BID - currently running low therefore will hold her lisinopril PTSD - Lexapro Elevated glucose - Denies Hx of diabetes - HbA1C 7.4 - Metformin after discussion with patient - Will require tools for self monitoring of blood glucose 1. Accu Chek Smartview test strips to check 1x/d. 2. Accu Chek Fastclix lancing drum to check 1x/d. Hypothyroidism - Levothyroxine 100mcg daily VTE Prophylaxis - Lovenox 40 mg SQ daily Code - Full Disposition - Observation status to med/surg - PT/OT/discharge planning - Possible plan to get her to rehabilitation Resident Physician Supervision Note: I interviewed and examined the patient. Discussed with Dr. Mi and agree with findings and plan as documented in the note. Any exceptions or clarifications are listed here: None Documented By: Real Roberto angry, upset about hip pain. L hip and down leg hurts to move but if she lays on side too long then shoulder hurts too and had urinary incontiennce because she couldn't sit on toilet because of pain. ros otherwise negative except for as above vitals noted nad breathing unlabored msk/ost - tender to palp greater trochanter posteriorly to sacrum in region of piriformis - high tone/tender/decreased ROM - ligamentous articular strain - improved tissue texture, notable fasciculations during procedure hip / back / buttock/ leg pain -appearing heavily biomechanical - radicular pattern most likely peripheral from sciatica (if persists may need to image Lspine but no worrisome s/s and MRI in october showed L5/S1 DJD/DDD but predominantly on R side) -piriformis spasms likely a big part of acute picture -chronic bursitis and 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
[2017-02-06] MEDS: PANTOprazole SOD 40 MG TAB PO SCH (08:52)
[2017-02-06] MEDS: ESCITALOPRAM OXALATE 10 MG TAB PO SCH (08:52)
[2017-02-06] MEDS: CLONAZEPAM 1 MG TAB PO PRN (08:52)
[2017-02-06] MEDS: ESCITALOPRAM OXALATE 20 MG TAB PO SCH (08:52)
[2017-02-06] MEDS: ASCORBIC ACID 500 MG TAB PO SCH (08:52)
[2017-02-06] MEDS: LORATADINE 10 MG TAB PO SCH (08:52)
[2017-02-06] MEDS: METOPROLOL TARTRATE 25 MG TAB PO SCH ×2 (08:52→20:57)
[2017-02-06] MEDS: LINACLOTIDE 145 MCG PO SCH (08:59)
[2017-02-06] MEDS: ENOXAPARIN 40 MG/0.4 ML SYR SQ SCH (09:21)
[2017-02-06] MEDS: ACETAMINOPHEN 325 MG TAB PO PRN (11:47)
--- NOTE | 2017-02-06 14:10 | CONSULTATION REPORT ---
DATE OF CONSULTATION: 02/06/2017 INPATIENT CONSULTATION REPORT Plan of care discussed with Dr. Simons. CHIEF COMPLAINT: Left hip and leg pain status post fall. HISTORY OF PRESENT ILLNESS: Ms. Marcum is a 51-year-old white female who was admitted for complaints of left hip and leg pain status post a fall. The patient was reportedly caring for her chickens last evening, when she fell approximately 3-4 feet to the ground. She landed on her left leg and hip location. She is describing difficulty with pain in the left lumbosacral region extending into the gluteal, hip and the lateral thigh, occasionally traveling to the lateral dorsal aspect of the foot. She is currently indicating that her pain is an 8-9/10. She describes the pain as aching in characteristic, aggravated by any movement. She denies paresthesias. She does report weaknesses and has refused to get out of bed. The patient has a history of prior admission for similar pain complaints and did undergo trochanteric bursa injection during her last admission with moderate improvement. She reported use of some home opiates that were left over from prior to this admission. She reported moderate benefit from use of IV morphine received while in the Emergency Department. She is requesting something for pain at this time and reports that oxycodone has worked well for her in the past. She denied prior benefit from tramadol or hydrocodone. She also reports prior difficulties tolerating anti-neuropathic medications and reported a prior history of a diffuse rash and angioedema type response to use of prednisone, although did tolerate the steroid injection during an inpatient admission earlier this year with steroids. The patient denies any bowel or bladder incontinence. She is concerned about returning home due to her inability to care for herself as well as lack of support at home and caring for her own self as well as her home. The patient denies right lower extremity radicular pain. She has no further constitutional complaints at this time. PAST MEDICAL HISTORY: 1. Anxiety disorder. 2. Endometriosis. 3. GERD. 4. Dyslipidemia. 5. Hypertension. 6. Hypothyroidism. 7. Iron deficiency anemia. 8. History of Mesha-Knowles tear. 9. Osteoarthritis. 10. History puncture wound, left foot. 11. History of thumb fracture. 12. PTSD. FAMILY HISTORY: 1. Diabetes mellitus. 2. CAD. 3. Gallbladder disease. 4. Hypertension. 5. Kidney disease. 6. Nephrolithiasis. 7. History of seizures. SOCIAL HISTORY: The patient denies tobacco, alcohol or illicit drug use. The patient is and was from her , who sounds to be somewhat involved. She lives with her children. She is unemployed. ALLERGIES: 1. METHYLPREDNISOLONE. 2. ONDANSETRON. 3. ERYTHROMYCIN. 4. SULFA ANTIBIOTICS. 5. HYDROMORPHONE. CURRENT MEDICATIONS: Reviewed extensively in the EMR -- refer for current listing. REVIEW OF SYSTEMS: The patient denies complaints related to cardiac, pulmonary, GI, , endocrine, neurologic, hepatic, renal, ENT, dermatologic, or musculoskeletal other than described above in the HPI. PHYSICAL EXAMINATION: VITAL SIGNS: Temperature 36.7 degrees Celsius, pulse 59, respirations 18, BP 106/68, and pulse oximetry 96 on room air. GENERAL: Mr. Marcum is lying on her right side upon entering the room accompanied by her preteen daughter. Speech and thought process were appropriate. Her cognition was intact. The patient is obese and physically deconditioned state. BACK AND SPINE: Normal lumbar lordosis. She is nontender over the midline to palpation and percussion. She has no focal facet joint tenderness. She is tender over the left SI joint to provocative testing. She has tender to the gluteal region on the left extending into the hip area. LOWER EXTREMITIES: The patient appears to have some ecchymosis in the lateral distal 1/3 aspect of the thigh. She is generally tender over the entire aspect of the lateral thigh extending to the level of the knee. She is tender over the lateral aspect of the knee without obvious edema. Her knee has full range of motion without limitation. SLR increased some lateral hip and thigh pain on the left. Negative SLR on the right. Strength testing was 5/5 with dorsiflexion, plantarflexion and EHL testing. Sensation appears to be intact without notable deficits. Hip is nontender with internal and external rotation. She has no localized tenderness over the greater trochanter to direct palpation. NEUROLOGIC: Cranial nerves grossly intact. Ambulatory function was not witnessed. IMAGING STUDIES: Pelvic x-ray dated 02/06/2017 revealed no evidence of fracture within the pelvis, hips, sacrum, or left femur. ASSESSMENT: 1. Left hip/thigh pain secondary to contusion, status post fall. 2. Anxiety disorder. 3. History of posttraumatic stress disorder. TREATMENT AND RECOMMENDATIONS: No evidence of fracture based on x-ray scanning in the areas of symptomatic pain complaint. The patient has some ecchymosis beginning in the left lateral mid thigh. We discussed that her pain is likely related to contusion currently and expectations regarding improvement. Agree with avoiding use of opiate therapy in this patient. We would not recommend interventional procedures due to her reported history of an ALLERGY FOR METHYLPREDNISOLONE. The patient would need to be allergy tested against steroids moving forward should interventional procedures be considered. Would recommend utilization of baclofen for muscle relaxation as well as utilization of NSAIDs. Topical application of NSAIDs could be considered as well as heat and would strongly recommend involvement of PT/OT. Concern for significant psychosocial contributions regarding home life contributing to her presentations and her unwillingness to return home at this time. Consider involvement of community mental health social worker to determine the need for assistance. S[facility]
[2017-02-06] MEDS ORDERED: BACLOFEN TAB 20 MG TAB PO ONE (16:50)
[2017-02-06] MEDS ORDERED: VALPROATE SOD IV 500 MG in DEXTROSE 5% 50ML 50 ML IV STA (16:50)
[2017-02-06] MEDS: DICLOFENAC SOD 1% GEL 100 GM TUBE EXT SCH ×2 (18:17→20:58)
[2017-02-06] MEDS: BACLOFEN TAB 20 MG TAB PO SCH (19:26)
[2017-02-06] MEDS: SIMVASTATIN 40 MG TAB PO SCH (20:58)
[2017-02-06] MEDS ORDERED: FERROUS SULFATE 325 MG TAB PO SCH (21:00)
[2017-02-06] MEDS ORDERED: LISINOPRIL 10 MG TAB PO SCH (21:00)
[2017-02-07] MEDS: BACLOFEN TAB 20 MG TAB PO SCH ×4 (01:41→18:26)
[2017-02-07] MEDS: LEVOTHYROXINE 100 MCG TAB PO SCH (06:31)
[2017-02-07 07:12] VITALS: BP 125/73; PULSE 63; TEMP 36.6; O2SAT 95
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
[2017-02-07] MEDS: FERROUS SULFATE 325 MG TAB PO SCH (09:23)
[2017-02-07] MEDS: DICLOFENAC SOD 1% GEL 100 GM TUBE EXT SCH ×4 (09:24→21:05)
[2017-02-07] MEDS: DIVALPROEX 500 MG EXTENDED RELEASE TAB PO SCH (09:25)
[2017-02-07] MEDS: ESCITALOPRAM OXALATE 20 MG TAB PO SCH (09:25)
[2017-02-07] MEDS: LORATADINE 10 MG TAB PO SCH (09:25)
[2017-02-07] MEDS: ENOXAPARIN 40 MG/0.4 ML SYR SQ SCH (09:25)
[2017-02-07] MEDS: ASCORBIC ACID 500 MG TAB PO SCH (09:25)
[2017-02-07] MEDS: ESCITALOPRAM OXALATE 10 MG TAB PO SCH (09:25)
[2017-02-07] MEDS: METOPROLOL TARTRATE 25 MG TAB PO SCH ×2 (09:25→21:07)
[2017-02-07] MEDS: PANTOprazole SOD 40 MG TAB PO SCH (09:25)
[2017-02-07] MEDS: LINACLOTIDE 145 MCG PO SCH (09:26)
[2017-02-07] MEDS ORDERED: KETOROLAC TROMETHAMINE 30 MG/ML VIAL IV STA (10:21)
[2017-02-07] MEDS ORDERED: GLUCOSE 40% GEL 15 GM TUBE PO PRN ×2 (11:00→19:15)
[2017-02-07] MEDS: INSULIN ASPART 100 UNITS/ML 3 ML PEN SC SCH ×3 (13:00→21:00)
[2017-02-07 16:00] VITALS: O2SAT 96
[2017-02-07 16:21] VITALS: BP 125/77; PULSE 58; TEMP 36.7; O2SAT 96
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
[2017-02-07] MEDS: KETOROLAC TROMETHAMINE 30 MG/ML VIAL IV PRN (18:29)
[2017-02-07] MEDS ORDERED: GLUCAGON FOR INJ 1 MG VIAL SQ PRN (19:15)
[2017-02-07] MEDS ORDERED: GLUCOSE 10 TABS/TUBE PO PRN (19:15)
[2017-02-07] MEDS: SIMVASTATIN 40 MG TAB PO SCH (21:07)
[2017-02-07] MEDS: CLONAZEPAM 1 MG TAB PO PRN (21:12)
[2017-02-07 22:57] VITALS: BP 131/67; PULSE 57; TEMP 36.8; O2SAT 94
[2017-02-08] MEDS: BACLOFEN TAB 20 MG TAB PO SCH ×4 (01:02→18:23)
[2017-02-08] MEDS: KETOROLAC TROMETHAMINE 30 MG/ML VIAL IV PRN ×2 (01:03→16:14)
[2017-02-08] MEDS: LEVOTHYROXINE 100 MCG TAB PO SCH (06:19)
[2017-02-08 07:40] VITALS: BP 128/74; PULSE 58; TEMP 36.6; O2SAT 95
[2017-02-08] MEDS: LORATADINE 10 MG TAB PO SCH (08:16)
[2017-02-08] MEDS: DIVALPROEX 500 MG EXTENDED RELEASE TAB PO SCH (08:19)
[2017-02-08] MEDS: ESCITALOPRAM OXALATE 10 MG TAB PO SCH (08:19)
[2017-02-08] MEDS: LINACLOTIDE 145 MCG PO SCH (08:20)
[2017-02-08] MEDS: ESCITALOPRAM OXALATE 20 MG TAB PO SCH (08:20)
[2017-02-08] MEDS: PANTOprazole SOD 40 MG TAB PO SCH (08:21)
[2017-02-08] MEDS: METOPROLOL TARTRATE 25 MG TAB PO SCH ×2 (08:21→20:34)
[2017-02-08] MEDS: ASCORBIC ACID 500 MG TAB PO SCH (08:22)
[2017-02-08] MEDS: ERGOCALCIFEROL 50,000 INTER.UNIT CAP PO SCH (08:23)
[2017-02-08] MEDS: CHOLECALCIFEROL 1000 INTER.UNIT TAB PO SCH (08:24)
[2017-02-08] MEDS: ENOXAPARIN 40 MG/0.4 ML SYR SQ SCH (08:25)
[2017-02-08] MEDS: CLONAZEPAM 1 MG TAB PO PRN ×2 (08:34→22:11)
[2017-02-08] MEDS: DICLOFENAC SOD 1% GEL 100 GM TUBE EXT SCH ×4 (08:35→20:33)
[2017-02-08 09:45] VITALS: O2SAT 95
[2017-02-08] MEDS: INSULIN ASPART 100 UNITS/ML 3 ML PEN SC SCH ×4 (09:53→20:41)
[2017-02-08 15:07] LABS: URINE APPEARANCE CLEAR (CLEAR); URINE BILIRUBIN NEG (NEG); URINE COLOR YELLOW; URINE NITRITE NEG (NEG); URINE PH 5.5 (4.5-7.5); URINE SPECIFIC GRAVITY 1.014 (1.000-1.030); UROBILINOGEN NEG (NEG); ZZURINE CULT IF INDIC CATH NO
[2017-02-08 15:09] LABS: MANUAL MICROSCOPIC REQUIRED? NO; REVIEW REQ? NO
[2017-02-08 15:30] VITALS: BP 130/86; PULSE 66; TEMP 36.6; O2SAT 96
--- NOTE | 2017-02-08 17:13 | Progress Note ---
Subjective Date of Service: February 08, 2017. Subjective Pt evaluation today including: conversation w/ patient, physical exam, chart review, lab review, review of studies, review of inpatient medication list Voiding: no voiding problems, no incontinence Patient improved little but not much as per expected. Although she still claims her pain is 8-9/10 today, she admits it was a "12" prior to admission. Problem List Medical Problems: (1) Abdominal pain Status: Acute (2) Abdominal pain Status: Acute (3) ANXIETY STATE NOS Status: Chronic (4) Contusion of left foot Status: Acute (5) Contusion of left hip Status: Acute (6) Fall Status: Acute (7) Hip pain, left Status: Acute (8) Injury of left foot Status: Acute (9) Intractable abdominal pain Status: Acute (10) Left upper quadrant pain Status: Acute (11) Vertigo Status: Acute Review of Systems onstitutional: No chills, No fever Respiratory: No cough, No shortness of breath Cardiovascular: No chest pain, No edema, No palpitations Abdomen: No constipation, No diarrhea, No nausea, No pain, No vomiting Female : + problem reported (urinary retention), No hematuria Neurologic: + numbness/tingling, + weakness Medications Medications (Trade) Dose Ordered Sig/Prachi Route Start Time Stop Time Status Last Admin Dose Admin Ferrous Sulfate (Feosol Tab) 325 mg QDD PO 02/07/17 17:45 03/09/17 17:44 02/07/17 09:23 325 MG Ergocalciferol (Vitamin D Cap) 50,000 interunit Sa@0900 PO 02/08/17 09:00 03/10/17 08:59 02/08/17 08:23 50,000 INTERUNIT Cholecalciferol (Vitamin D Tab) 4,000 inter.unit QAM PO 02/08/17 09:00 03/10/17 08:59 02/08/17 08:24 4,000 INTER.UNIT Objective Vital Signs Date Time Temp Pulse Resp B/P Pulse Ox O2 Delivery O2 Flow Rate FiO2 02/08/17 16:10 Room Air 02/08/17 15:30 36.6 66 16 130/86 96 Room Air 02/08/17 09:45 95 Room Air 02/08/17 08:30 Room Air 02/08/17 07:40 36.6 58 16 128/74 95 Room Air 02/07/17 23:50 Room Air 02/07/17 22:57 36.8 57 15 131/67 94 Room Air Physical Exam Comments: General Appearance: WD/WN, + moderate distress ENT: hearing grossly normal Neck: supple, no adenopathy Respiratory/Chest: lungs clear, normal breath sounds, no respiratory distress, no accessory muscle use Cardiovascular: regular rate, rhythm, no murmur Abdomen: normal bowel sounds, non tender, soft Extremities: normal inspection, no pedal edema, no calf tenderness, + pertinent finding (Good left knee and ankle ROM, limited left hip flexion) Neurologic/Psychiatric: alert, normal mood/affect, oriented x 3 Skin: normal color, warm/dry, no rash Laboratory Results Last 24 Hours Test 02/07/17 20:58 02/08/17 08:14 02/08/17 12:07 02/08/17 14:40 Bedside Glucose 137 mg/dl 154 mg/dl 134 mg/dl Urine Color YELLOW Urine Appearance CLEAR Urine pH 5.5 Urine Specific [place] 1.014 Urine Protein NEG Urine Glucose (UA) NEG Urine Ketones TRACE Urine Occult Blood NEG Urine Nitrite NEG Urine Bilirubin NEG Urine Urobilinogen NEG Urine Leukocyte Esterase NEG Assessment and Plan Acute on chronic pain - Not cooperative -piriformis spasms causing peripheral sciatica (far more likely than true lumbar given general lack of appropriate impingement on MRI just from 3 months ago - but if sciatica persists would need to consider re-imaging) -OMT done yesterday -chronic bursitis as well w probable IT band pain -baclofen 20mg QID, voltaren gel QID, toradol prn, depakote for peripheral nerve stabilization (had really bad side effects to gabapentin, hesitant ( understandably) to try lyrica -does appear improving -?rehab on discharge (still needs better pain control to meaningfully participate in PT/OT however) - Pt may benefit from outpatient chr pain management. Fall - she has chronic gait disturbance and states her fall was mechanical since she was chasing her dog - different from story to night doctor to whom she told she thinks her pain caused her to fall. Slightly unclear history also as she initially told PA in ER no vomiting or headache but she reports she had both of these post fall. No ecchymosis as result of fall - Neuro checks, with consideration of CT head if focal deficits appear. - PT/OT - if unable to ambulate may have to consider further imaging of her hip. - Possible ongoing rehabilitation upon discharge Hypertension - Metoprolol 25mg BID - Lisinopril held in view of low normal BP PTSD - Lexapro Elevated glucose - Denies Hx of diabetes - HbA1C 7.4 - Insulin sluding scale with BGS ac/hs - Discussion of lifestyle management vs. metformin pending Hypothyroidism - Levothyroxine 100mcg daily VTE Prophylaxis - Lovenox 40 mg SQ daily Code - Full Continued [facility] stay due to: inadequate oral pain control Discharge planning: home with home health, rehab hospital, uncertain
[2017-02-08] MEDS: FERROUS SULFATE 325 MG TAB PO SCH (19:04)
[2017-02-08 20:30] VITALS: BP 133/78; PULSE 60
[2017-02-08] MEDS: SIMVASTATIN 40 MG TAB PO SCH (20:33)
[2017-02-08 23:03] VITALS: BP 104/52; PULSE 59; TEMP 36.8; O2SAT 96
[2017-02-09] MEDS: BACLOFEN TAB 20 MG TAB PO SCH ×4 (00:29→18:11)
[2017-02-09] MEDS: LEVOTHYROXINE 100 MCG TAB PO SCH (06:10)
[2017-02-09 07:02] LABS: CREATININE 1.1 mg/dl (0.60-1.20)
[2017-02-09 07:08] VITALS: BP 123/81; PULSE 52; TEMP 36.6; O2SAT 97
[2017-02-09] MEDS: METOPROLOL TARTRATE 25 MG TAB PO SCH ×2 (09:00→21:05)
[2017-02-09] MEDS: INSULIN ASPART 100 UNITS/ML 3 ML PEN SC SCH ×4 (09:40→21:06)
[2017-02-09] MEDS: DICLOFENAC SOD 1% GEL 100 GM TUBE EXT SCH ×4 (09:41→21:05)
[2017-02-09] MEDS: LORATADINE 10 MG TAB PO SCH (09:41)
[2017-02-09] MEDS: DIVALPROEX 500 MG EXTENDED RELEASE TAB PO SCH (09:42)
[2017-02-09] MEDS: ESCITALOPRAM OXALATE 20 MG TAB PO SCH (09:42)
[2017-02-09] MEDS: ESCITALOPRAM OXALATE 10 MG TAB PO SCH (09:42)
[2017-02-09] MEDS: LINACLOTIDE 145 MCG PO SCH (09:43)
[2017-02-09] MEDS: PANTOprazole SOD 40 MG TAB PO SCH (09:43)
[2017-02-09] MEDS: CHOLECALCIFEROL 1000 INTER.UNIT TAB PO SCH (09:44)
[2017-02-09] MEDS: ASCORBIC ACID 500 MG TAB PO SCH (09:44)
[2017-02-09] MEDS: ENOXAPARIN 40 MG/0.4 ML SYR SQ SCH (09:45)
[2017-02-09] MEDS: CLONAZEPAM 1 MG TAB PO PRN (09:46)
[2017-02-09] MEDS: KETOROLAC TROMETHAMINE 30 MG/ML VIAL IV PRN ×2 (09:47→15:57)
--- NOTE | 2017-02-09 12:17 | Progress Note ---
Subjective Date of Service: February 09, 2017. Subjective Pt evaluation today including: conversation w/ patient, chart review Voiding: no voiding problems, no incontinence pt is not cooperative, extremely rude to provider and staff. lying comfortably in her bed not in any distress. Problem List Medical Problems: (1) Abdominal pain Status: Acute (2) Abdominal pain Status: Acute (3) ANXIETY STATE NOS Status: Chronic (4) Contusion of left foot Status: Acute (5) Contusion of left hip Status: Acute (6) Fall Status: Acute (7) Hip pain, left Status: Acute (8) Injury of left foot Status: Acute (9) Intractable abdominal pain Status: Acute (10) Left upper quadrant pain Status: Acute (11) Vertigo Status: Acute Review of Systems All Other Systems: Reviewed and Negative Objective Vital Signs Date Time Temp Pulse Resp B/P Pulse Ox O2 Delivery O2 Flow Rate FiO2 02/09/17 08:15 Room Air 02/09/17 07:08 36.6 52 19 123/81 97 Room Air 02/08/17 23:55 Room Air 02/08/17 23:03 36.8 59 15 104/52 96 Room Air 02/08/17 20:30 60 133/78 02/08/17 16:10 Room Air 02/08/17 15:30 36.6 66 16 130/86 96 Room Air Physical Exam General Appearance: no apparent distress Eyes: EOMI Neck: supple Respiratory/Chest: lungs clear, no respiratory distress Cardiovascular: regular rate, rhythm, no edema, no murmur Abdomen: normal bowel sounds, soft Neurologic/Psychiatric: alert, oriented x 3 Laboratory Results Last 24 Hours Test 02/08/17 14:40 02/08/17 17:14 02/08/17 20:33 02/09/17 06:22 Urine Color YELLOW Urine Appearance CLEAR Urine pH 5.5 Urine Specific [place] 1.014 Urine Protein NEG Urine Glucose (UA) NEG Urine Ketones TRACE Urine Occult Blood NEG Urine Nitrite NEG Urine Bilirubin NEG Urine Urobilinogen NEG Urine Leukocyte Esterase NEG Bedside Glucose 156 mg/dl 195 mg/dl Creatinine 1.10 mg/dl Est Creatinine Clear Calc Drug Dose 67.9 ml/min Estimated GFR () 67.8 Estimated GFR (Non- 58.5 Test 02/09/17 08:15 Bedside Glucose 161 mg/dl Assessment and Plan Acute on chronic pain - Not cooperative - case discussed with case ,management , may need a nurse navigator in the morning and social insurance analyst. -piriformis spasms causing peripheral sciatica (far more likely than true lumbar given general lack of appropriate impingement on MRI just from 3 months ago - but if sciatica persists would need to consider re-imaging) -OMT done yesterday -chronic bursitis as well w probable IT band pain -baclofen 20mg QID, voltaren gel QID, toradol prn, depakote for peripheral nerve stabilization (had really bad side effects to gabapentin, hesitant ( understandably) to try lyrica -does appear improving -?rehab on discharge (still needs better pain control to meaningfully participate in PT/OT however) - Pt may benefit from outpatient chr pain management. Fall - she has chronic gait disturbance and states her fall was mechanical since she was chasing her dog - different from story to night doctor to whom she told she thinks her pain caused her to fall. Slightly unclear history also as she initially told PA in ER no vomiting or headache but she reports she had both of these post fall. No ecchymosis as result of fall - Neuro checks, with consideration of CT head if focal deficits appear. - PT/OT - if unable to ambulate may have to consider further imaging of her hip. - Possible ongoing rehabilitation upon discharge Hypertension - Metoprolol 25mg BID - Lisinopril held in view of low normal BP PTSD - Lexapro Elevated glucose - Denies Hx of diabetes - HbA1C 7.4 - Insulin sluding scale with BGS ac/hs - Discussion of lifestyle management vs. metformin pending Hypothyroidism - Levothyroxine 100mcg daily VTE Prophylaxis - Lovenox 40 mg SQ daily Code - Full Continued [facility] stay due to: inadequate oral pain control Discharge planning: home with home health, rehab hospital, uncertain
[2017-02-09 15:15] VITALS: BP 133/83; PULSE 57; TEMP 36.9; O2SAT 96
[2017-02-09] MEDS: FERROUS SULFATE 325 MG TAB PO SCH (18:11)
[2017-02-09] MEDS: ACETAMINOPHEN 325 MG TAB PO PRN (18:12)
[2017-02-09] MEDS: SIMVASTATIN 40 MG TAB PO SCH (21:05)
[2017-02-09 21:10] VITALS: BP 122/60; PULSE 61
[2017-02-09 23:18] VITALS: BP 127/76; PULSE 55; TEMP 36.7; O2SAT 97
[2017-02-10] MEDS: BACLOFEN TAB 20 MG TAB PO SCH ×4 (01:13→18:17)
[2017-02-10] MEDS: KETOROLAC TROMETHAMINE 30 MG/ML VIAL IV PRN ×3 (01:33→17:24)
[2017-02-10] MEDS: LEVOTHYROXINE 100 MCG TAB PO SCH (06:23)
[2017-02-10 07:10] VITALS: BP 143/95; PULSE 53; TEMP 36.8; O2SAT 98
[2017-02-10] MEDS: ENOXAPARIN 40 MG/0.4 ML SYR SQ SCH (08:35)
[2017-02-10] MEDS: LINACLOTIDE 145 MCG PO SCH (08:35)
[2017-02-10] MEDS: CHOLECALCIFEROL 1000 INTER.UNIT TAB PO SCH (08:36)
[2017-02-10] MEDS: ESCITALOPRAM OXALATE 20 MG TAB PO SCH (08:36)
[2017-02-10] MEDS: DICLOFENAC SOD 1% GEL 100 GM TUBE EXT SCH ×4 (08:36→21:29)
[2017-02-10] MEDS: METOPROLOL TARTRATE 25 MG TAB PO SCH ×2 (08:36→21:30)
[2017-02-10] MEDS: LORATADINE 10 MG TAB PO SCH (08:36)
[2017-02-10] MEDS: PANTOprazole SOD 40 MG TAB PO SCH (08:37)
[2017-02-10] MEDS: ASCORBIC ACID 500 MG TAB PO SCH (08:37)
[2017-02-10] MEDS: ESCITALOPRAM OXALATE 10 MG TAB PO SCH (08:37)
[2017-02-10] MEDS: DIVALPROEX 500 MG EXTENDED RELEASE TAB PO SCH (08:37)
[2017-02-10] MEDS: INSULIN ASPART 100 UNITS/ML 3 ML PEN SC SCH ×4 (08:50→21:41)
[2017-02-10] MEDS: CLONAZEPAM 1 MG TAB PO PRN ×2 (08:55→21:29)
--- NOTE | 2017-02-10 13:21 | Hospitalist Progress Note ---
Hospitalist Progress Note Date of Service February 10, 2017. Subjective Pt evaluation today including: conversation w/ patient, physical exam, chart review, lab review, review of studies, review of inpatient medication list Patient reports continued pain. It is somewhat improved. She rates it as an 8/ 10. She is also complaining of pain in the left knee and down into the left ankle. Concern that she is having difficulty urinating. She attributes some of that to being uncomfortable when she tries to use the restroom. She reports being catheterized 9 times over the last several days. Additional Comments: 6 system review negative. Please see pertinent positives in the history of present illness section. Objective Vital Signs Date Time Temp Pulse Resp B/P Pulse Ox O2 Delivery O2 Flow Rate FiO2 02/10/17 07:50 Room Air 02/10/17 07:10 36.8 53 16 143/95 98 Room Air 02/09/17 23:59 Room Air 02/09/17 23:18 36.7 55 16 127/76 97 Room Air 02/09/17 21:10 61 122/60 02/09/17 15:50 Room Air 02/09/17 15:15 36.9 57 16 133/83 96 Room Air Physical Exam General Appearance: no apparent distress (sleeping in bed ) Eyes: EOMI Neck: no JVD Respiratory/Chest: lungs clear Cardiovascular: regular rate, rhythm Abdomen: normal bowel sounds, non tender, soft Extremities: no pedal edema, + pertinent finding (full range of motion of the left knee. No ligamentous instability appreciated. Mild tenderness to palpation noted over the lateral aspect of the left hip.) Neurologic/Psychiatric: no motor/sensory deficits, oriented x 3 Skin: warm/dry Laboratory Results Test 02/10/17 11:59 Bedside Glucose 137 mg/dl (70-90) Last 24 Hours Test 02/09/17 17:05 02/09/17 20:34 02/10/17 08:09 02/10/17 11:59 Bedside Glucose 193 mg/dl 178 mg/dl 135 mg/dl 137 mg/dl Assessment and Plan Acute on chronic L hip/leg pain-likely secondary to reportedly mechanical fall fall in addition to psychosomatic/anxiety -seen by pain-->agree with no narcs -Continue current regimen of Voltaren gel QID, baclofen 20 mg QID and Toradol prn -add ultram 50 mg q 4 h prn -needs PT/OT today -agreeable to SNF for rehab upon d/c ? Urinary retention-the patient says that she has been straight cath'ed 9 times. ? etiology -urology consult Hypertension - Metoprolol 25mg BID - Lisinopril held in view of low normal BP PTSD/Anxiety -Klonopin 1 mg BID - Lexapro Elevated glucose - Denies Hx of diabetes - HbA1C 7.4 - Insulin sluding scale with BGS ac/hs - will need lifestyle changes-->ADA diet -will order diabetes teaching -hold off on Metformin for now -will need glucometer upon d/c -f/u PCP for a recheck in 2 weeks Hypothyroidism - Levothyroxine 100mcg daily VTE Prophylaxis - Lovenox 40 mg SQ daily DIPSO -PT/OT evaluations are pending. Likely discharge to [facility] for rehab CODE STATUS -LEVEL I FULL CODE
[2017-02-10 15:30] VITALS: BP 117/67; PULSE 55; TEMP 36.8; O2SAT 98
--- NOTE | 2017-02-10 16:19 | DIAGNOSTIC IMAGING REPORT ---
CHEST ONE VIEW PORTABLE CLINICAL HISTORY: chest pain dyspnea COMPARISON STUDY: 05/30/2016 FINDINGS: Mild cardia megaly. Lungs are clear. Diaphragms are smooth. IMPRESSION: Mild cardiomegaly. Otherwise negative study Electronically signed by: Ata Garcia M.D. 02/10/2017 4:17 PM Dictated Date/Time: 02/10/2017 4:17 PM
[2017-02-10] MEDS: TRAMADOL HCL 50 MG TAB PO PRN (16:38)
[2017-02-10] MEDS: FERROUS SULFATE 325 MG TAB PO SCH (18:16)
[2017-02-10] MEDS: SIMVASTATIN 40 MG TAB PO SCH (21:30)
[2017-02-10 22:50] VITALS: BP 130/67; PULSE 55; TEMP 36.9; O2SAT 96
[2017-02-11] MEDS: BACLOFEN TAB 20 MG TAB PO SCH ×4 (00:01→18:41)
[2017-02-11] MEDS: PROMETHAZINE HCL 25 MG TAB PO PRN (00:02)
[2017-02-11] MEDS: KETOROLAC TROMETHAMINE 30 MG/ML VIAL IV PRN ×4 (01:02→21:29)
[2017-02-11] MEDS: LEVOTHYROXINE 100 MCG TAB PO SCH (06:13)
[2017-02-11 08:02] VITALS: BP 122/76; PULSE 55; TEMP 36.7; O2SAT 96
[2017-02-11 08:10] VITALS: O2SAT 96
--- NOTE | 2017-02-11 08:18 | Urology Consultation ---
History General Date of Service: February 11, 2017. Chief Complaint: urinary retention Primary Care Physician: Marcie Hernández Pt seen a urologist before?: Yes If yes, why?: recurrent UTI History of Present Illness 51 yo female admitted to [facility] after falling from a chicken coup. She has developed urinary retention since admission. Has required CIC several times for PVRs as high as 999ml. Current with whitlock catheter in place draining clear, yellow urine. She denies any difficulty voiding prior to admission. She reports baseline leaking with coughing and sneezing as well as a hx of recurrent UTI for which has seen urology several years ago and was placed on a post-coital abx. Laboratory Last 24 Hours Test 02/10/17 11:59 02/10/17 15:50 02/10/17 17:15 02/10/17 20:41 Bedside Glucose 137 mg/dl 101 mg/dl 219 mg/dl D-Dimer 380 ug/L FEU Troponin I < 0.015 ng/ml Problem List Medical Problems: (1) Abdominal pain Status: Acute (2) Abdominal pain Status: Acute (3) ANXIETY STATE NOS Status: Chronic (4) Contusion of left foot Status: Acute (5) Contusion of left hip Status: Acute (6) Fall Status: Acute (7) Hip pain, left Status: Acute (8) Injury of left foot Status: Acute (9) Intractable abdominal pain Status: Acute (10) Left upper quadrant pain Status: Acute (11) Vertigo Status: Acute Past History anxiety, GERD, high cholesterol, hypothyroidism, osteoarthritis, other (left corneal abrasion, endometriosis, iron deficiency anemia, puncture wound of left foot, Mesha-Knowles syndrome) Past Surgical History: Family History Diabetes mellitus FH: heart disease FHx: gallbladder disease Hypertension Kidney disease Kidney stones Seizures Social History Hx Tobacco Use In Past Year?: No Smoking: non-smoker Alcohol: socially Marital status: Housing status: lives with family Occupation status: unemployed Immunizations History of Influenza Vaccine: N/A History of Tetanus Vaccine?: utd History of Pneumococcal: No History of Hepatitis B Vaccine: No History of MDRO No Allergies Coded Allergies: Methylprednisolone (Verified Allergy, Mild, RASH, 02/06/17) Ondansetron (Verified Allergy, Mild, Cardiac symptoms , 02/06/17) Pt states d/t cardiac issue, prolonged QT interval, she is unable to take zofran- requests to be put on her allergy list Erythromycin (Verified Allergy, Unknown, RASH, 02/06/17) Sulfa Antibiotics (Verified Allergy, Unknown, RASH, 02/06/17) Hydromorphone (Verified Adverse Reaction, Intermediate, confusion, 02/06/17 ) Medications Home Medications: Home Meds and Scripts Medications Dose Route/Sig Max Daily Dose Days Date Category Dose Instructions Klonopin (Clonazepam) 1 Mg Tab 1 Mg PO TID PRN 02/06/17 Reported Lexapro (Escitalopram Oxalate) 10 Mg Tab 10 Mg PO DAILY 02/06/17 Reported TAKE WITH 20MG = 30 MG DAILY Baclofen 10 Mg Tab 10 Mg PO Q8H PRN 30 11/12/16 Rx Reglan (Metoclopramide HCl) 10 Mg Tab 10 Mg PO UD PRN 11/03/16 Reported NAUSEA Vitamin C (Ascorbic Acid) 500 Mg Tab 500 Mg PO QAM 10/27/16 Reported Phenergan (Promethazine HCl) 25 Mg Tab 25 Mg PO Q6H PRN 09/02/16 Rx Iron (Ferrous Sulfate) 325 Mg Tab 325 Mg PO HS 08/09/16 Reported Advil (Ibuprofen) 200 Mg Tab 400 Mg PO Q6H PRN 07/31/16 Reported Escitalopram Oxalate 20 Mg Tab 20 Mg PO QAM 07/29/16 Reported TAKE WITH 10MG = 30MG DAILY Prilosec (Omeprazole) 40 Mg Cap 40 Mg PO QAM 07/29/16 Reported Claritin (Loratadine) 10 Mg Tab 10 Mg PO QAM 07/29/16 Reported Simvastatin 40 Mg Tab 40 Mg PO HS 07/29/16 Reported Hydrochlorothiazide 25 Mg Tab 25 Mg PO DAILY PRN 07/29/16 Reported Levothyroxine Sodium 100 Mcg Tab 100 Mcg PO QAM 07/29/16 Reported Linzess (Linaclotide) 145 Mcg Cap 145 Mcg PO QAM 05/21/16 Reported Lopressor (Metoprolol Tartrate) 25 Mg Tab 25 Mg PO BID 02/12/16 Reported Lisinopril 10 Mg Tab 10 Mg PO QPM 11/12/14 Reported Inpatient Medications: Current Inpatient Medications Medications (Trade) Dose Ordered Sig/Prachi Route Start Time Stop Time Status Last Admin Dose Admin Enoxaparin Sodium (Lovenox Inj) 40 mg Q24H SQ 02/06/17 09:00 03/08/17 08:59 02/10/17 08:35 40 MG Acetaminophen (Tylenol Tab) 650 mg Q4H PRN PO 02/06/17 04:45 03/08/17 04:44 02/09/17 18:12 650 MG Escitalopram Oxalate (Lexapro Tab) 20 mg QAM PO 02/06/17 09:00 03/08/17 08:59 02/10/17 08:36 20 MG Escitalopram Oxalate (Lexapro Tab) 10 mg DAILY PO 02/06/17 09:00 03/08/17 08:59 02/10/17 08:37 10 MG Levothyroxine Sodium (Synthroid Tab) 100 mcg DAILYBB PO 02/06/17 06:15 03/08/17 06:59 02/11/17 06:13 100 MCG Loratadine (Claritin Tab) 10 mg QAM PO 02/06/17 09:00 03/08/17 08:59 02/10/17 08:36 10 MG Miscellaneous Information (Order Awaiting Action) 1 ea QS N/A 02/06/17 08:00 03/08/17 07:59 Metoprolol Tartrate (Lopressor Tab) 25 mg BID PO 02/06/17 09:00 03/08/17 08:59 02/10/17 21:30 25 MG Promethazine HCl (Phenergan Tab) 25 mg Q6H PRN PO 02/06/17 05:00 03/08/17 04:59 02/11/17 00:02 25 MG Simvastatin (Zocor Tab) 40 mg HS PO 02/06/17 21:00 03/08/17 20:59 02/10/17 21:30 40 MG Ascorbic Acid (Vitamin C Tab) 500 mg QAM PO 02/06/17 09:00 03/08/17 08:59 02/10/17 08:37 500 MG Pantoprazole Sodium (Protonix Tab) 40 mg QAM PO 02/06/17 09:00 03/08/17 08:59 02/10/17 08:37 40 MG Miscellaneous (Iv Fluids Completed) 1 ea PRN PRN N/A 02/06/17 06:30 02/06/18 06:29 Linaclotide (Linzess) 145 mcg QAM PO 02/06/17 09:00 03/08/17 08:59 02/10/17 08:35 145 MCG Clonazepam (Klonopin Tab) 1 mg BID PRN PO 02/06/17 08:30 03/08/17 08:29 02/10/17 21:29 1 MG Baclofen (Lioresal Tab) 20 mg Q6H PO 02/06/17 19:00 03/08/17 18:59 02/11/17 06:13 20 MG Diclofenac Sodium (Voltaren 1% Top Gel) 1 appln QID EXT 02/06/17 17:00 03/08/17 16:59 02/10/17 21:29 1 APPLN Divalproex Sodium (Depakote Extended Rel Tab) 500 mg DAILY PO 02/07/17 09:00 03/09/17 08:59 02/10/17 08:37 500 MG Ferrous Sulfate (Feosol Tab) 325 mg QDD PO 02/07/17 17:45 03/09/17 17:44 02/10/17 18:16 325 MG Ketorolac Tromethamine (Toradol Inj) 30 mg Q6H PRN IV 02/07/17 10:30 02/12/17 10:29 02/11/17 01:02 30 MG Glucagon (Glucagon Inj) 1 mg UD PRN SQ 02/07/17 19:15 03/09/17 19:14 Glucose (Glucose Chew Tab) 1 tabs UD PRN PO 02/07/17 19:15 03/09/17 19:14 Insulin Aspart (novoLOG ASPART) SLIDING SCALE If C... ACHS SC 02/07/17 12:00 03/09/17 11:59 02/10/17 21:41 3 UNITS Glucose (Glucose 40% Gel) 15-30 GRAMS 15 GRAMS... UD PRN PO 02/07/17 11:00 03/09/17 10:59 Ergocalciferol (Vitamin D Cap) 50,000 interunit Sa@0900 PO 02/08/17 09:00 03/10/17 08:59 02/08/17 08:23 50,000 INTERUNIT Cholecalciferol (Vitamin D Tab) 4,000 inter.unit QAM PO 02/08/17 09:00 03/10/17 08:59 02/10/17 08:36 4,000 INTER.UNIT Tramadol HCl (Ultram Tab) 50 mg Q4H PRN PO 02/10/17 11:15 03/12/17 11:14 02/10/17 16:38 50 MG Review of Systems Review of Systems Constitutional: No chills, No fever Eyes: No double vision Neurological: No dizzy Endocrine: No excessive thirst Gastrointestinal: + constipation, No abdominal pain, No nausea, No vomiting Cardiovascular: No chest pain Respiratory: No shortness of breath Skin: No rash Musculoskeletal: No back pain Female : + urinary retention Physical Exam Vital Signs: Vital Signs Past 12 Hours Date Time Temp Pulse Resp B/P Pulse Ox O2 Delivery O2 Flow Rate FiO2 02/11/17 08:02 36.7 55 15 122/76 96 Room Air 02/10/17 23:45 Room Air 02/10/17 22:50 36.9 55 16 130/67 96 Room Air Physical Exam: General Appearance: no apparent distress, + obese Eyes: bilateral eyes normal inspection ENT: hearing grossly normal Neck: no JVD Respiratory/Chest: no respiratory distress, no accessory muscle use Cardiovascular: no JVD Extremities: normal inspection Neurologic/Psychiatric: alert, normal mood/affect, oriented x 3 Skin: normal color Assessment & Plan Assessment & Plan A/P: Urinary retention AFVSS. Will send a UC&S. Use of narcotics and constipation may be a factor in her retention. Recommend whitlock catheter be left in place for 7 days. Pt OK for d/c to [facility] from perspective. Will plan for an outpatient trial of void in 1 week. Thanks for the consult. No further management at this time. Recall PRN issues. Thanks for allowing us to participate in this pt's care.
[2017-02-11] MEDS: METOPROLOL TARTRATE 25 MG TAB PO SCH ×2 (09:00→21:25)
[2017-02-11] MEDS: ESCITALOPRAM OXALATE 20 MG TAB PO SCH (09:16)
[2017-02-11] MEDS: PANTOprazole SOD 40 MG TAB PO SCH (09:17)
[2017-02-11] MEDS: LORATADINE 10 MG TAB PO SCH (09:17)
[2017-02-11] MEDS: CHOLECALCIFEROL 1000 INTER.UNIT TAB PO SCH (09:17)
[2017-02-11] MEDS: ASCORBIC ACID 500 MG TAB PO SCH (09:17)
[2017-02-11] MEDS: DIVALPROEX 500 MG EXTENDED RELEASE TAB PO SCH (09:17)
[2017-02-11] MEDS: ENOXAPARIN 40 MG/0.4 ML SYR SQ SCH (09:18)
[2017-02-11] MEDS: DICLOFENAC SOD 1% GEL 100 GM TUBE EXT SCH ×4 (09:19→21:22)
[2017-02-11] MEDS: ESCITALOPRAM OXALATE 10 MG TAB PO SCH (09:22)
[2017-02-11] MEDS: LINACLOTIDE 145 MCG PO SCH (09:23)
[2017-02-11] MEDS: INSULIN ASPART 100 UNITS/ML 3 ML PEN SC SCH ×4 (09:32→21:31)
[2017-02-11] MEDS: CLONAZEPAM 1 MG TAB PO PRN ×2 (09:50→22:35)
[2017-02-11] MEDS ORDERED: NURSING VERBAL MED ORDER ONE ×2 (12:00→13:45)
[2017-02-11] MEDS: METOCLOPRAMIDE HCL 10 MG TAB PO PRN (13:31)
[2017-02-11] MEDS: TRAMADOL HCL 50 MG TAB PO PRN (14:36)
--- NOTE | 2017-02-11 15:11 | Progress Note ---
Subjective Date of Service: February 11, 2017. Subjective Pt evaluation today including: conversation w/ patient, conversation w/ family , physical exam, chart review, lab review, review of studies Left hip and left lower extremity pain, still the same, medicine seems has a little help, currently is on heating pack as well, patient reported his help No more chest pain Problem List Medical Problems: (1) Abdominal pain Status: Acute (2) Abdominal pain Status: Acute (3) ANXIETY STATE NOS Status: Chronic (4) Contusion of left foot Status: Acute (5) Contusion of left hip Status: Acute (6) Fall Status: Acute (7) Hip pain, left Status: Acute (8) Injury of left foot Status: Acute (9) Intractable abdominal pain Status: Acute (10) Left upper quadrant pain Status: Acute (11) Vertigo Status: Acute Review of Systems Constitutional: No chills, No fatigue, No fever, No problem reported, No sweats , No weakness, No weight loss Eyes: No diplopia, No discharge, No eye pain, No redness, No worsening of vision ENT: No dental problems, No hearing loss, No nasal symptoms, No sore throat, No tinnitus, No trouble swallowing, No unusual epistaxis Respiratory: No cough, No dyspnea at rest, No dyspnea on exertion, No hemoptysis, No shortness of breath, No sputum, No wheezing Cardiac: No PND, No chest pain, No claudication, No edema, No orthopnea, No palpitations Abdomen: No constipation, No diarrhea, No nausea, No pain, No vomiting Musculoskeletal: + see HPI, No calf pain, No joint pain, No muscle pain, No swelling Female : No abnormal vaginal bleeding, No dysuria, No hematuria, No incontinence, No urinary frequency, No vaginal discharge Neurologic: No balance problems, No memory loss, No numbness/tingling, No paralysis, No vertigo, No weakness Psychiatric: No anhedonism, No anxiety, No depression symptoms, No insomnia, No substance abuse Heme: No abnormal bleeding/bruising, No clotting problems, No night sweats, No swollen lymph nodes Endo: No excessive thirst, No excessive urination, No fatigue Skin: No bleeding, No color change, No itch, No new/changing skin lesions, No rash Objective Vital Signs Date Time Temp Pulse Resp B/P Pulse Ox O2 Delivery O2 Flow Rate FiO2 02/11/17 09:00 Room Air 02/11/17 08:10 96 Room Air 02/11/17 08:02 36.7 55 15 122/76 96 Room Air 02/10/17 23:45 Room Air 02/10/17 22:50 36.9 55 16 130/67 96 Room Air 02/10/17 15:30 Room Air 02/10/17 15:30 36.8 55 20 117/67 98 Room Air Physical Exam General Appearance: WD/WN, no apparent distress, + obese Eyes: normal inspection, PERRL, EOMI, sclerae normal ENT: normal ENT inspection, hearing grossly normal, pharynx normal Neck: supple, no adenopathy, thyroid normal, no JVD, no carotid bruits, trachea midline Respiratory/Chest: chest non-tender, lungs clear, normal breath sounds, no respiratory distress, no accessory muscle use Cardiovascular: regular rate, rhythm, no edema, no gallop, no JVD, no murmur Abdomen: normal bowel sounds, non tender, soft, no organomegaly, no pulsatile mass Extremities: non-tender, normal inspection, no pedal edema, no calf tenderness , normal capillary refill, pelvis stable, + pertinent finding (left lateral hip tender, local no red swelling or erythema) Neurologic/Psychiatric: operations boardman II-XII nml as tested, no motor/sensory deficits, alert, normal mood/affect, oriented x 3 Skin: normal color, warm/dry, no rash Lymphatic: no adenopathy Laboratory Results Last 24 Hours Test 02/10/17 15:50 02/10/17 17:15 02/10/17 20:41 02/11/17 08:00 D-Dimer 380 ug/L FEU Troponin I < 0.015 ng/ml Bedside Glucose 101 mg/dl 219 mg/dl 120 mg/dl Test 02/11/17 12:06 Bedside Glucose 128 mg/dl Assessment and Plan 51-year-old white female admitted because of the problem below chest pain , yesterday , new, Likely atypical chest pain Totally resolved checked EKG, cardiac enzyme troponin, and d-dimer, were all unremarkable Acute on chronic L hip/leg pain-likely secondary to reportedly mechanical fall fall in addition to psychosomatic/anxiety stable possible a little improving 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 Urinary retention-the patient says that she has been straight cath'ed , urology on the case Hypertension PTSD/Anxiety Elevated glucose - Denies Hx of diabetes - HbA1C 7.4 - Insulin sluding scale with BGS ac/hs -f/u PCP for a recheck in 2 weeks Hypothyroidism DVT prophylaxis is covered Continued [facility] stay due to: inadequate oral pain control Discharge planning: home with home health, rehab hospital, uncertain
[2017-02-11 15:50] VITALS: BP 108/57; PULSE 55; TEMP 36.6; O2SAT 93
[2017-02-11] MEDS: FERROUS SULFATE 325 MG TAB PO SCH (17:52)
[2017-02-11] MEDS: SIMVASTATIN 40 MG TAB PO SCH (21:25)
[2017-02-11 21:28] VITALS: BP 123/73; PULSE 65
[2017-02-11 22:54] VITALS: BP 119/64; PULSE 53; TEMP 36.6; O2SAT 91
[2017-02-12] MEDS: BACLOFEN TAB 20 MG TAB PO SCH ×4 (00:24→18:27)
[2017-02-12] MEDS: KETOROLAC TROMETHAMINE 30 MG/ML VIAL IV PRN (05:27)
[2017-02-12] MEDS: LEVOTHYROXINE 100 MCG TAB PO SCH (05:27)
[2017-02-12 07:33] LABS: CREATININE 1.1 mg/dl (0.60-1.20)
[2017-02-12] MEDS ORDERED: VTMD1000 PO (07:56)
[2017-02-12] MEDS ORDERED: VLTG EXT (07:56)
[2017-02-12] MEDS ORDERED: LRS20 PO (07:56)
[2017-02-12] MEDS ORDERED: ULT50X PO (07:56)
--- NOTE | 2017-02-12 08:01 | Discharge Instructions ---
Discharge Instructions Date of Service February 12, 2017. Admission Reason for Admission: Contusion Of Left Hip, Fall, Left Hip Pain, Lumbar Discharge Discharge Diagnosis / Problem: Left hip pain, fall, ambulatory dysfunction Discharge Goals Goal(s): Improve function Activity Recommendations Activity Level: Up Ad Blanca Therapies: Physical Therapy Lifting Limitations: none Exercise/Sports Limitations: as tolerated . Additional Information Patient informed of condition: Yes Advance Directives: No DNR: No Level of Care: Skilled Communicable Disease: No Prognosis: Improving Whitlock Catheter: Yes Instructions / Follow-Up Instructions / Follow-Up you were treated in the hospital for left hip pain from the result of a fall. You also have been retaining urine. A whitlock catheter was inserted. You will need to follow up with the urology team in 1 week Your blood sugars were also elevated. These will need to be monitored 4 times daily. Exercise and a diabetic diet is recommended. Repeat Hemoglobin A1C in 4 weeks. Follow up with your primary care physician to discuss need to start medications Please take pain medication as prescribed Call your doctor or return to the emergency department if you have any of the following symptoms: -Fever of 101F or greater -Persistent vomiting - Persistent diarrhea -Lethargy -Chest pain -Shortness of breath -severe dizziness -weakness on one side of your body Current Hospital Diet Patient's current hospital diet: Diabetes Type 2 Diet Discharge Diet Recommended Diet: Diabetes Type 2 Diet, Low Fat Diet Pending Studies Studies pending at discharge: no Physician Orders On Transfer POLST Discussion: without POLST completion Laboratory Results Hemoglobin A1c Test 02/06/17 00:12 Range/Units Estimated Average Glucose 166 mg/dl Hemoglobin A1c 7.4 H 4.5-5.6 % Medical Emergencies . Who to Call and When: Medical Emergencies: If at any time you feel your situation is an emergency, please call 911 immediately. . Non-Emergent Contact Non-Emergency issues call your: Primary Care Provider . . "Provider Documentation" section prepared by Monique Silva . Core Measure Problem Core Measures: None [place] Drug Monitoring Program Search Results: no issues identified
[2017-02-12 08:33] VITALS: BP 134/75; PULSE 58; TEMP 36.7; O2SAT 97
[2017-02-12 08:37] VITALS: O2SAT 97
[2017-02-12] MEDS: METOPROLOL TARTRATE 25 MG TAB PO SCH ×2 (09:00→21:14)
[2017-02-12] MEDS: ENOXAPARIN 40 MG/0.4 ML SYR SQ SCH (09:08)
[2017-02-12] MEDS: LINACLOTIDE 145 MCG PO SCH (09:09)
[2017-02-12] MEDS: DIVALPROEX 500 MG EXTENDED RELEASE TAB PO SCH (09:14)
[2017-02-12] MEDS: LORATADINE 10 MG TAB PO SCH (09:15)
[2017-02-12] MEDS: PANTOprazole SOD 40 MG TAB PO SCH (09:15)
[2017-02-12] MEDS: ESCITALOPRAM OXALATE 20 MG TAB PO SCH (09:15)
[2017-02-12] MEDS: ESCITALOPRAM OXALATE 10 MG TAB PO SCH (09:16)
[2017-02-12] MEDS: ASCORBIC ACID 500 MG TAB PO SCH (09:16)
[2017-02-12] MEDS: CHOLECALCIFEROL 1000 INTER.UNIT TAB PO SCH (09:16)
[2017-02-12] MEDS: DICLOFENAC SOD 1% GEL 100 GM TUBE EXT SCH ×4 (09:16→21:14)
[2017-02-12] MEDS: INSULIN ASPART 100 UNITS/ML 3 ML PEN SC SCH ×4 (09:22→21:17)
[2017-02-12 09:24] VITALS: BP 126/64; PULSE 58
[2017-02-12] MEDS: CLONAZEPAM 1 MG TAB PO PRN ×2 (09:35→21:14)
[2017-02-12] MEDS: METOCLOPRAMIDE HCL 10 MG TAB PO PRN (09:36)
[2017-02-12] MEDS ORDERED: BISACODYL 10 MG SUPP PR STA (10:58)
--- NOTE | 2017-02-12 11:03 | Hospitalist Progress Note ---
Hospitalist Progress Note Date of Service February 12, 2017. Subjective Pt evaluation today including: conversation w/ patient, physical exam, chart review, review of inpatient medication list the pain is somewhat better. She was able to up out of bed and work with physical therapy. The pain medications are helping. She did have chest pain yesterday that resolved. She denies any chest pain or pressure today. No shortness of breath, heart palpitations or dizziness. She does note that she has not had a bowel movement in several days. Denies abdominal pain or nausea. She typically has problems with constipation. Additional Comments: 6 system review negative. Please see pertinent positives in the history of present illness section. Objective Vital Signs Date Time Temp Pulse Resp B/P Pulse Ox O2 Delivery O2 Flow Rate FiO2 02/12/17 09:24 58 126/64 02/12/17 09:10 Room Air 02/12/17 08:37 97 Room Air 02/12/17 08:33 36.7 58 16 134/75 97 Room Air 02/12/17 00:20 Room Air 02/11/17 22:54 36.6 53 16 119/64 91 Room Air 02/11/17 21:28 65 123/73 02/11/17 15:50 36.6 55 18 108/57 93 Room Air 02/11/17 15:15 Room Air Physical Exam General Appearance: no apparent distress, + pertinent finding (in better spirits today) Eyes: EOMI Neck: no JVD Respiratory/Chest: lungs clear Cardiovascular: regular rate, rhythm Abdomen: normal bowel sounds, non tender, soft Extremities: non-tender, no pedal edema, + pertinent finding (the tenderness elicited over the left hip.) Neurologic/Psychiatric: no motor/sensory deficits, oriented x 3 Skin: warm/dry Laboratory Results Last 24 Hours Test 02/11/17 12:06 02/11/17 17:19 02/11/17 21:03 02/12/17 06:30 Bedside Glucose 128 mg/dl 106 mg/dl 179 mg/dl Creatinine 1.10 mg/dl Est Creatinine Clear Calc Drug Dose 67.9 ml/min Estimated GFR () 67.8 Estimated GFR (Non- 58.5 Test 02/12/17 08:24 Bedside Glucose 126 mg/dl Assessment and Plan Acute on chronic L hip/leg pain-likely secondary to reportedly mechanical fall fall in addition to psychosomatic/anxiety--better pain control today -seen by pain-->agree with no narcs -Continue current regimen of Voltaren gel QID, baclofen 20 mg QID and Toradol prn -added ultram 50 mg q 4 h prn -d/c to SNF for rehab when bed available Episode of CP-resolved -EKG NSR -trop neg -D dimer WNL Urinary retention -Urology consult appreciated--? Pain meds versus constipation could be exacerbating urinary retention -Insert Gonzalez catheter -Follow-up in the urology office in 7 days for a voiding trial Constipation -Colace 100 mg po BID continue Mallorie status -Dulcolax suppository 1 now Hypertension - Metoprolol 25mg BID - Lisinopril 10 mg daily PTSD/Anxiety -Klonopin 1 mg BID - Lexapro Elevated glucose - Denies Hx of diabetes - HbA1C 7.4 - Insulin sluding scale with BGS ac/hs - will need lifestyle changes-->ADA diet -hold off on Metformin for now -will need glucometer upon d/c -f/u PCP for a recheck in 2 weeks Hypothyroidism - Levothyroxine 100mcg daily VTE Prophylaxis - Lovenox 40 mg SQ daily DIPSO -awaiting placement -stabld for d/c from a medical standpoint CODE STATUS -LEVEL I FULL CODE
[2017-02-12] MEDS: TRAMADOL HCL 50 MG TAB PO PRN (15:13)
[2017-02-12 15:25] VITALS: BP 108/63; PULSE 60; TEMP 36.4; O2SAT 93
[2017-02-12] MEDS: ACETAMINOPHEN 325 MG TAB PO PRN (17:33)
[2017-02-12] MEDS: FERROUS SULFATE 325 MG TAB PO SCH (18:27)
[2017-02-12] MEDS ORDERED: NAPROXEN 250 MG TAB PO STA (19:27)
[2017-02-12] MEDS: DOCUSATE SODIUM 100 MG CAP PO SCH (21:14)
[2017-02-12] MEDS: SIMVASTATIN 40 MG TAB PO SCH (21:14)
[2017-02-12 21:15] VITALS: BP 123/78; PULSE 60
[2017-02-12] MEDS: PROMETHAZINE HCL 25 MG TAB PO PRN (22:35)
[2017-02-12 23:10] VITALS: BP 115/72; PULSE 56; TEMP 36.6; O2SAT 95
[2017-02-13] MEDS: TRAMADOL HCL 50 MG TAB PO PRN ×5 (00:24→23:34)
[2017-02-13] MEDS: BACLOFEN TAB 20 MG TAB PO SCH ×4 (00:24→17:53)
[2017-02-13] MEDS: ACETAMINOPHEN 325 MG TAB PO PRN (03:47)
[2017-02-13] MEDS: LEVOTHYROXINE 100 MCG TAB PO SCH (05:37)
[2017-02-13 07:43] VITALS: O2SAT 94
[2017-02-13 07:47] VITALS: BP 122/84; PULSE 56; PULSE 57; TEMP 36.6; O2SAT 94
[2017-02-13] MEDS: METOPROLOL TARTRATE 25 MG TAB PO SCH ×2 (09:00→21:12)
[2017-02-13] MEDS: LORATADINE 10 MG TAB PO SCH (09:02)
[2017-02-13] MEDS: DICLOFENAC SOD 1% GEL 100 GM TUBE EXT SCH ×4 (09:02→21:12)
[2017-02-13] MEDS: CHOLECALCIFEROL 1000 INTER.UNIT TAB PO SCH (09:03)
[2017-02-13] MEDS: ASCORBIC ACID 500 MG TAB PO SCH (09:03)
[2017-02-13] MEDS: ESCITALOPRAM OXALATE 20 MG TAB PO SCH (09:03)
[2017-02-13] MEDS: ESCITALOPRAM OXALATE 10 MG TAB PO SCH (09:03)
[2017-02-13] MEDS: PANTOprazole SOD 40 MG TAB PO SCH (09:03)
[2017-02-13] MEDS: DIVALPROEX 500 MG EXTENDED RELEASE TAB PO SCH (09:04)
[2017-02-13] MEDS: DOCUSATE SODIUM 100 MG CAP PO SCH ×2 (09:04→21:13)
[2017-02-13] MEDS: ENOXAPARIN 40 MG/0.4 ML SYR SQ SCH (09:04)
[2017-02-13] MEDS: LINACLOTIDE 145 MCG PO SCH (09:07)
[2017-02-13] MEDS: INSULIN ASPART 100 UNITS/ML 3 ML PEN SC SCH ×4 (09:14→21:27)
[2017-02-13] MEDS: CLONAZEPAM 1 MG TAB PO PRN (09:18)
--- NOTE | 2017-02-13 12:57 | Hospitalist Progress Note ---
Hospitalist Progress Note Date of Service February 13, 2017. Subjective Pt evaluation today including: conversation w/ patient, physical exam, chart review, review of inpatient medication list Pt says pain is somewhat improved . She claims to have been out of bed yesterday. She had 2 bowel movements yesterday. Patient claims that she is motivated to work with physical therapy today. She is nervous about going out in the hallway because of her history of agoraphobia Additional Comments: 6 system review negative. Please see pertinent positives in the history of present illness section. Objective Vital Signs Date Time Temp Pulse Resp B/P Pulse Ox O2 Delivery O2 Flow Rate FiO2 02/13/17 07:52 Room Air 02/13/17 07:47 36.6 56 20 122/84 94 Room Air 57 02/13/17 07:43 94 Room Air 02/13/17 00:25 Room Air 02/12/17 23:10 36.6 56 18 115/72 95 Room Air 02/12/17 21:15 60 123/78 02/12/17 15:25 36.4 60 20 108/63 93 Room Air 02/12/17 15:10 Room Air Physical Exam General Appearance: no apparent distress Eyes: EOMI Neck: no JVD Respiratory/Chest: lungs clear Cardiovascular: regular rate, rhythm Abdomen: normal bowel sounds, non tender, soft Extremities: no pedal edema Neurologic/Psychiatric: no motor/sensory deficits Laboratory Results Last 24 Hours Test 02/12/17 17:07 02/12/17 20:45 02/13/17 07:54 02/13/17 11:55 Bedside Glucose 126 mg/dl 183 mg/dl 104 mg/dl 100 mg/dl Assessment and Plan Acute on chronic L hip/leg pain-likely secondary to reportedly mechanical fall fall in addition to psychosomatic/anxiety--good pain control. Psychiatric issues preventing pt from working with PT -seen by pain-->agree with no narcs -Continue current regimen of Voltaren gel QID, baclofen 20 mg QID and ultram -had long conversation with pt regarding the importance of getting out of bed and working with PT...she is agreeable Episode of CP-resolved -EKG NSR -trop neg -D dimer WNL Urinary retention -Urine culture growing gram - bacilli and Klebsiella -Start Cipro 500 mg po BID x 7 days -continue whitlock -Urology on board. Void trial next week Constipation-resolved -Colace 100 mg po BID continue Linzess Hypertension - Metoprolol 25mg BID - Lisinopril 10 mg daily PTSD/Anxiety/Agoraphobia -Klonopin 1 mg BID - Lexapro -Psych consult Elevated glucose - Denies Hx of diabetes - HbA1C 7.4 - Insulin sluding scale with BGS ac/hs - will need lifestyle changes-->ADA diet -hold off on Metformin for now -will need glucometer upon d/c -f/u PCP for a recheck in 2 weeks Hypothyroidism - Levothyroxine 100mcg daily VTE Prophylaxis - Lovenox 40 mg SQ daily DIPSO -awaiting placement -stable for d/c from a medical standpoint CODE STATUS -LEVEL I FULL CODE
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
[2017-02-13] MEDS ORDERED: CIPROFLOXACIN 500 MG TAB PO ONE (14:30)
[2017-02-13 15:57] VITALS: BP 131/86; PULSE 72; TEMP 36.9; O2SAT 92
[2017-02-13] MEDS: FERROUS SULFATE 325 MG TAB PO SCH (17:53)
[2017-02-13] MEDS: SIMVASTATIN 40 MG TAB PO SCH (21:12)
[2017-02-13 21:15] VITALS: BP 133/68; PULSE 67
[2017-02-13 23:34] VITALS: BP 112/58; PULSE 75; TEMP 36.8; O2SAT 93
[2017-02-13] MEDS: PROMETHAZINE HCL 25 MG TAB PO PRN (23:34)
[2017-02-14] MEDS: BACLOFEN TAB 20 MG TAB PO SCH ×4 (00:36→18:41)
[2017-02-14] MEDS: LEVOTHYROXINE 100 MCG TAB PO SCH (06:14)
[2017-02-14 07:26] VITALS: BP 112/61; PULSE 67; TEMP 36.7; O2SAT 94
[2017-02-14] MEDS: DICLOFENAC SOD 1% GEL 100 GM TUBE EXT SCH ×4 (09:03→21:03)
[2017-02-14] MEDS: ASCORBIC ACID 500 MG TAB PO SCH (09:04)
[2017-02-14] MEDS: ENOXAPARIN 40 MG/0.4 ML SYR SQ SCH (09:04)
[2017-02-14] MEDS: LORATADINE 10 MG TAB PO SCH (09:04)
[2017-02-14] MEDS: DIVALPROEX 500 MG EXTENDED RELEASE TAB PO SCH (09:04)
[2017-02-14] MEDS: ESCITALOPRAM OXALATE 20 MG TAB PO SCH (09:04)
[2017-02-14] MEDS: CHOLECALCIFEROL 1000 INTER.UNIT TAB PO SCH (09:04)
[2017-02-14] MEDS: LINACLOTIDE 145 MCG PO SCH (09:05)
[2017-02-14] MEDS: DOCUSATE SODIUM 100 MG CAP PO SCH ×2 (09:05→21:03)
[2017-02-14] MEDS: ESCITALOPRAM OXALATE 10 MG TAB PO SCH (09:05)
[2017-02-14] MEDS: PANTOprazole SOD 40 MG TAB PO SCH (09:06)
[2017-02-14] MEDS: METOPROLOL TARTRATE 25 MG TAB PO SCH ×2 (09:07→21:03)
[2017-02-14] MEDS: INSULIN ASPART 100 UNITS/ML 3 ML PEN SC SCH ×4 (09:10→21:11)
[2017-02-14] MEDS: METOCLOPRAMIDE HCL 10 MG TAB PO PRN (09:15)
[2017-02-14] MEDS: TRAMADOL HCL 50 MG TAB PO PRN ×4 (09:16→21:43)
[2017-02-14] MEDS: CLONAZEPAM 1 MG TAB PO PRN ×2 (09:16→21:03)
[2017-02-14] MEDS ORDERED: NURSING VERBAL MED ORDER ONE (11:30)
[2017-02-14] MEDS ORDERED: MAGIC MOUTHWASH PO SCH (12:00)
[2017-02-14] MEDS ORDERED: CLONAZEPAM 1 MG TAB PO SCH (12:00)
--- NOTE | 2017-02-14 12:29 | CONSULTATION REPORT ---
DATE OF CONSULTATION: 02/14/2017 DATE OF CONSULTATION: 02/14/2017. HISTORY OF PRESENT ILLNESS: Ulysses Marcum is a 51-year-old female admitted to [facility] with complaint of left-sided hip and leg pain. She was initially seen by [facility] Pain service and it was recommended that she be treated with anti-inflammatory agents, baclofen, topical NSAIDs, as well as PT, OT and social service consultation. It was felt that she was suffering from a soft tissue related injury from a fall she sustained prior to the admission. She requested reconsultation today from the pain service as she could not remember seeing the previous provider. This morning, she reports that she is experiencing pain over the left lateral aspect of her hip. She reports pain intermittently extends into the lower extremity. She also reports experiencing low back pain in the proximal buttock in the midline. She denies any numbness, weakness, loss of bowel or bladder control but nursing service reports that she has at times had urinary urgency. She is currently being treated with IV opiate analgesics is no open analgesics. Previously, she has undergone trigger point injection over the left hip musculature with minimal and short-term efficacy. Patient's past medical history, past surgical history, medications and allergies reviewed in the EMR. Exam: Exam demonstrates patient to be asleep upon entering the room. She is easily arousable but slow to answer questions. She appears deconditioned and does not appear any significant pain upon sitting up from a supine position. Inspection of the left hip as well as left lower back does not demonstrate any hematoma or ecchymotic areas. Palpation over the left hip musculature produces diffuse tenderness. Inspection of the lumbar spine demonstrates increased lumbar lordosis. There is generalized, diffuse myofascial tenderness to the distal lumbar spine paraspinous musculature. Provocative testing the facet joints as well as SI joints is unremarkable. Neurologically, straight raising is negative for radicular pain but complains of low back pain on the left side. She demonstrates intact sensation and motor strength. Gait was not tested. Assessment: 1. Soft tissue injury/pain status post fall. 2. Possible left leg radicular pain. Treatment admission: 1. Recommend unenhanced MRI of the lumbar spine to evaluate for any disc pathology causing radicular pain. If this is unremarkable , then recommend using diclofenac gel, Lidoderm patches, and anti-inflammatory agents as well as application of heat packs to the site. Do not recommend long- term opioids. MTDD
--- NOTE | 2017-02-14 13:34 | Progress Note ---
Subjective Date of Service: February 14, 2017. Subjective Pt evaluation today including: conversation w/ patient, conversation w/ family , physical exam, chart review, lab review, review of studies, review of inpatient medication list Eating lunch, looks okay, however when asking about pain level, she reported a 7 out of 10 in the left lateral hip and radiation done to left lower extremity posteriorly, denied weakness or tingling or numbness, complaint oral ulceration, Problem List Medical Problems: (1) Abdominal pain Status: Acute (2) Abdominal pain Status: Acute (3) ANXIETY STATE NOS Status: Chronic (4) Contusion of left foot Status: Acute (5) Contusion of left hip Status: Acute (6) Fall Status: Acute (7) Hip pain, left Status: Acute (8) Injury of left foot Status: Acute (9) Intractable abdominal pain Status: Acute (10) Left upper quadrant pain Status: Acute (11) Vertigo Status: Acute Review of Systems Constitutional: No chills, No fatigue, No fever, No problem reported, No sweats , No weakness, No weight loss Eyes: No diplopia, No discharge, No eye pain, No redness, No worsening of vision ENT: + see HPI, No dental problems, No hearing loss, No nasal symptoms, No sore throat, No tinnitus, No trouble swallowing, No unusual epistaxis Respiratory: No cough, No dyspnea at rest, No dyspnea on exertion, No hemoptysis, No shortness of breath, No sputum, No wheezing Cardiac: No PND, No chest pain, No claudication, No edema, No orthopnea, No palpitations Abdomen: No constipation, No diarrhea, No nausea, No pain, No vomiting Musculoskeletal: + joint pain, + problem reported (left lateral hip pain,), No calf pain, No muscle pain, No swelling Female : No abnormal vaginal bleeding, No dysuria, No hematuria, No incontinence, No urinary frequency, No vaginal discharge Neurologic: No balance problems, No memory loss, No numbness/tingling, No paralysis, No vertigo, No weakness Psychiatric: No anhedonism, No anxiety, No depression symptoms, No insomnia, No substance abuse Heme: No abnormal bleeding/bruising, No clotting problems, No night sweats, No swollen lymph nodes Endo: No excessive thirst, No excessive urination, No fatigue Skin: No bleeding, No color change, No itch, No new/changing skin lesions, No rash Objective Vital Signs Date Time Temp Pulse Resp B/P Pulse Ox O2 Delivery O2 Flow Rate FiO2 02/14/17 08:22 Room Air 02/14/17 07:26 36.7 67 16 112/61 94 Room Air 02/13/17 23:34 36.8 75 16 112/58 93 Room Air 02/13/17 23:23 Room Air 02/13/17 21:15 67 133/68 02/13/17 15:57 36.9 72 18 131/86 92 Room Air 02/13/17 15:30 Room Air Physical Exam General Appearance: WD/WN, no apparent distress, + obese Eyes: normal inspection, PERRL, EOMI, sclerae normal ENT: normal ENT inspection, hearing grossly normal, pharynx normal Neck: supple, no adenopathy, thyroid normal, no JVD, no carotid bruits, trachea midline Respiratory/Chest: chest non-tender, lungs clear, normal breath sounds, no respiratory distress, no accessory muscle use Cardiovascular: regular rate, rhythm, no edema, no gallop, no JVD, no murmur Abdomen: normal bowel sounds, non tender, soft, no organomegaly, no pulsatile mass Extremities: non-tender, normal inspection, no pedal edema, no calf tenderness , normal capillary refill, pelvis stable, + pertinent finding (left hip limited range of motion because of pain) 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, no motor/sensory deficits, alert, normal mood/affect, oriented x 3, + abnormal cerebellar tests Skin: normal color, warm/dry, no rash Lymphatic: no adenopathy Laboratory Results Last 24 Hours Test 02/13/17 17:08 02/13/17 20:57 02/14/17 08:20 Bedside Glucose 121 mg/dl 153 mg/dl 149 mg/dl Assessment and Plan 51-year-old white female admitted on February 06 because of the problems in below Acute on chronic L hip/leg pain-likely secondary to reportedly mechanical fall fall in addition to psychosomatic/anxiety X-rays on admission for the hip sacrum left femoral and left knee, No fracture or dislocation within the pelvis, hips, sacrum, or left femur per report Had been had fairly pain control , with combined her tramadol and heating pack , However he seems getting worse yesterday, was emotional and crying, which is associated with she is emotional Pain management ordered L spine MRI, I totally agree Will follow-up MRI results and pain management input History of depression and anxiety PTSD, was seen by psychiatry outside psych Dr. Ramos, In-house psychiatry service saw patient, have recommended a trial of Cymbalta for pain, anxiety and depression which the patient declines. Continue Klonopin 1 mg by mouth twice a day when necessary Continue Lexapro 30 mg daily Psych have also recommended that the patient get back into therapy, perhaps EMDR , to help reframe her traumatic experiences which she also declines psych will talk to Dr. Ramos, I am calling Dr. Ramos too Psychiatric issues preventing pt from working with PT, -Continue current regimen of Voltaren gel QID, baclofen 20 mg QID and ultram Episode of CP-resolved -EKG NSR -trop neg -D dimer WNL Urinary retention and UTI, -Urine culture growing gram - bacilli and Klebsiella -Start Cipro 500 mg po BID x 7 days - Patient reportedly is indicated yeast infection on Cipro agreed to start Diflucan for prevention -continue whitlock -Urology on board. Void trial next week Possible type II diabetic with elevated HbA1c , and Elevated glucose Denies Hx of diabetes - HbA1C 7.4 - Insulin sluding scale with BGS ac/hs - will need lifestyle changes-->ADA diet - We'll start Metformin for now -will need glucometer upon d/c -f/u PCP for a recheck in 2 weeks Hypothyroidism - Levothyroxine 100mcg daily VTE Prophylaxis - Lovenox 40 mg SQ daily DIPSO -awaiting placement -stable for d/c from a medical standpoint, waiting for dispo CODE STATUS -LEVEL I FULL CODE Continued [facility] stay due to: inadequate oral pain control Discharge planning: home with home health, rehab hospital, uncertain
[2017-02-14] MEDS: FLUCONAZOLE 100 MG TAB PO SCH (14:20)
[2017-02-14] MEDS: CIPROFLOXACIN 500 MG TAB PO SCH ×2 (14:20→21:03)
[2017-02-14] MEDS: DEXAMETHASONE CONC SOLN 3.75 MG, NYSTATIN SUSP 30 ML, DiphenhydrAMINE HCL SYRUP 300 MG,... PO SCH ×15 (14:20→23:56)
--- NOTE | 2017-02-14 14:35 | Psychiatric Progress Notes ---
Psychiatric Progress Note Date of Service February 14, 2017. Notes case reviewed with Dr. Andrade, outpatient treating psychiatrist who has already started benzo taper. In agreement that no additional intervention is needed at this time, has reviewed risks of benzos with pain meds and will continue taper as appropriate as outpatient.
--- NOTE | 2017-02-14 14:56 | DIAGNOSTIC IMAGING REPORT ---
LUMBAR SPINE MRI HISTORY: back and left leg pain TECHNIQUE: Multiplanar multisequence MRI of the lumbar spine was performed without the use of contrast. COMPARISON: Lumbar spine MRI 11/04/2016. FINDINGS: For the purpose of the report the L5-S1 disc space will be located on axial image 27 of 30. No fracture or subluxation. Disc spaces are preserved. The conus terminates at the L1-L2 disc space level. There is lumbar subcutaneous edema. The visualized retroperitoneal soft tissues are unremarkable. L1-L2: No significant central canal or neural foraminal narrowing. L2-L3: No significant central canal or neural foraminal narrowing. L3-L4: Small broad-based posterior disc bulge asymmetric to the right resulting in mild bilateral neural foraminal narrowing. No significant central canal narrowing. L4-L5: Small broad-based posterior disc bulge without significant central canal narrowing. There is mild to moderate bilateral neural foraminal narrowing. L5-S1: Small broad-based posterior disc bulge with a focal central annular tear. No significant central canal narrowing. Moderate bilateral neural foraminal narrowing. IMPRESSION: 1. Overall, no significant change compared to the prior study. No fracture or subluxation within the lumbar spine. 2. No significant change within the lower lumbar spine degenerative changes as described above. Electronically signed by: Curry Monson M.D. 02/14/2017 2:54 PM Dictated Date/Time: 02/14/2017 2:37 PM
[2017-02-14 15:26] VITALS: BP 115/77; PULSE 63; TEMP 36.7; O2SAT 93
[2017-02-14] MEDS: FERROUS SULFATE 325 MG TAB PO SCH (18:41)
[2017-02-14] MEDS: SIMVASTATIN 40 MG TAB PO SCH (21:03)
[2017-02-14 23:00] VITALS: BP 115/59; PULSE 60; TEMP 36.8; O2SAT 92
[2017-02-14] MEDS: PROMETHAZINE HCL 25 MG TAB PO PRN (23:56)
[2017-02-15] MEDS: BACLOFEN TAB 20 MG TAB PO SCH ×4 (01:10→18:34)
[2017-02-15] MEDS: TRAMADOL HCL 50 MG TAB PO PRN ×3 (04:22→17:29)
[2017-02-15] MEDS ORDERED: NURSING VERBAL MED ORDER ONE ×2 (04:45→05:00)
[2017-02-15] MEDS ORDERED: COUGH DROP (SUGAR FREE) LOZ 24 LOZ/1 BOX PO PRN (05:15)
[2017-02-15] MEDS: LEVOTHYROXINE 100 MCG TAB PO SCH (05:49)
[2017-02-15] MEDS: DEXAMETHASONE CONC SOLN 3.75 MG, NYSTATIN SUSP 30 ML, DiphenhydrAMINE HCL SYRUP 300 MG,... PO SCH ×15 (05:49→18:33)
[2017-02-15 06:29] LABS: CREATININE 1.2 mg/dl (0.60-1.20)
[2017-02-15] MEDS: DICLOFENAC SOD 1% GEL 100 GM TUBE EXT SCH ×4 (07:39→23:27)
[2017-02-15] MEDS: CHOLECALCIFEROL 1000 INTER.UNIT TAB PO SCH (07:39)
[2017-02-15] MEDS: ERGOCALCIFEROL 50,000 INTER.UNIT CAP PO SCH (07:39)
[2017-02-15] MEDS: ASCORBIC ACID 500 MG TAB PO SCH (07:39)
[2017-02-15] MEDS: DIVALPROEX 500 MG EXTENDED RELEASE TAB PO SCH (07:39)
[2017-02-15] MEDS: ESCITALOPRAM OXALATE 20 MG TAB PO SCH (07:40)
[2017-02-15] MEDS: METOPROLOL TARTRATE 25 MG TAB PO SCH ×2 (07:40→20:39)
[2017-02-15] MEDS: PANTOprazole SOD 40 MG TAB PO SCH (07:40)
[2017-02-15] MEDS: LORATADINE 10 MG TAB PO SCH (07:40)
[2017-02-15] MEDS: FLUCONAZOLE 100 MG TAB PO SCH (07:40)
[2017-02-15] MEDS: DOCUSATE SODIUM 100 MG CAP PO SCH ×2 (07:40→20:39)
[2017-02-15] MEDS: CIPROFLOXACIN 500 MG TAB PO SCH ×2 (07:40→20:39)
[2017-02-15] MEDS: ESCITALOPRAM OXALATE 10 MG TAB PO SCH (07:40)
[2017-02-15] MEDS: LINACLOTIDE 145 MCG PO SCH (07:41)
[2017-02-15] MEDS: ENOXAPARIN 40 MG/0.4 ML SYR SQ SCH (07:41)
[2017-02-15] MEDS ORDERED: POLYETHYLENE (MIRALAX) 17 GM PACK PO ONE (07:45)
[2017-02-15] MEDS ORDERED: POLYETHYLENE (MIRALAX) 17 GM PACK PO PRN (07:45)
[2017-02-15 07:57] VITALS: BP 122/77; PULSE 62; TEMP 36.8; O2SAT 95
[2017-02-15] MEDS: CLONAZEPAM 1 MG TAB PO PRN (08:46)
[2017-02-15] MEDS: INSULIN ASPART 100 UNITS/ML 3 ML PEN SC SCH ×4 (09:26→20:44)
--- NOTE | 2017-02-15 11:22 | Progress Note ---
Subjective Date of Service: February 15, 2017. Subjective Pt evaluation today including: conversation w/ patient, physical exam, chart review, lab review, review of studies, conversation w/ netsuite consultant, review of inpatient medication list Feeling good after out of bed and shower, looks good eating breakfast however, she reported that her left hip and lower extremity pain still 8 out of 10 Otherwise no other complaint Problem List Medical Problems: (1) Abdominal pain Status: Acute (2) Abdominal pain Status: Acute (3) ANXIETY STATE NOS Status: Chronic (4) Contusion of left foot Status: Acute (5) Contusion of left hip Status: Acute (6) Fall Status: Acute (7) Hip pain, left Status: Acute (8) Injury of left foot Status: Acute (9) Intractable abdominal pain Status: Acute (10) Left upper quadrant pain Status: Acute (11) Vertigo Status: Acute Review of Systems Constitutional: No chills, No fatigue, No fever, No problem reported, No sweats , No weakness, No weight loss Eyes: No diplopia, No discharge, No eye pain, No redness, No worsening of vision ENT: No dental problems, No hearing loss, No nasal symptoms, No sore throat, No tinnitus, No trouble swallowing, No unusual epistaxis Respiratory: No cough, No dyspnea at rest, No dyspnea on exertion, No hemoptysis, No shortness of breath, No sputum, No wheezing Cardiac: No PND, No chest pain, No claudication, No edema, No orthopnea, No palpitations Abdomen: No constipation, No diarrhea, No nausea, No pain, No vomiting Musculoskeletal: + joint pain, No calf pain, No muscle pain, No swelling Female : No abnormal vaginal bleeding, No dysuria, No hematuria, No incontinence, No urinary frequency, No vaginal discharge Neurologic: No balance problems, No memory loss, No numbness/tingling, No paralysis, No vertigo, No weakness Psychiatric: No anhedonism, No anxiety, No depression symptoms, No insomnia, No substance abuse Heme: No abnormal bleeding/bruising, No clotting problems, No night sweats, No swollen lymph nodes Endo: No excessive thirst, No excessive urination, No fatigue Skin: No bleeding, No color change, No itch, No new/changing skin lesions, No rash Objective Vital Signs Date Time Temp Pulse Resp B/P Pulse Ox O2 Delivery O2 Flow Rate FiO2 02/15/17 07:57 36.8 62 16 122/77 95 Room Air 02/15/17 07:51 Room Air 02/15/17 00:15 Room Air 02/14/17 23:00 36.8 60 16 115/59 92 Room Air 02/14/17 15:26 36.7 63 16 115/77 93 Room Air 02/14/17 15:20 Room Air Physical Exam General Appearance: WD/WN, no apparent distress, + obese, + pertinent finding ( pleasant and conversational) Eyes: normal inspection, PERRL, EOMI, sclerae normal ENT: normal ENT inspection, hearing grossly normal, pharynx normal Neck: supple, no adenopathy, thyroid normal, no JVD, no carotid bruits, trachea midline Respiratory/Chest: chest non-tender, lungs clear, normal breath sounds, no respiratory distress, no accessory muscle use Cardiovascular: regular rate, rhythm, no edema, no gallop, no JVD, no murmur Abdomen: normal bowel sounds, non tender, soft, no organomegaly, no pulsatile mass Extremities: non-tender, normal inspection, no pedal edema, no calf tenderness , normal capillary refill, pelvis stable Neurologic/Psychiatric: health analyst II-XII nml as tested, no motor/sensory deficits, alert, normal mood/affect, oriented x 3 Skin: normal color, warm/dry, no rash Lymphatic: no adenopathy Laboratory Results Last 24 Hours Test 02/14/17 12:06 02/14/17 17:20 02/14/17 20:43 02/15/17 05:15 Bedside Glucose 124 mg/dl 118 mg/dl 174 mg/dl Creatinine 1.20 mg/dl Est Creatinine Clear Calc Drug Dose 62.2 ml/min Estimated GFR () 61.0 Estimated GFR (Non- 52.7 Test 02/15/17 08:13 Bedside Glucose 121 mg/dl Assessment and Plan 51-year-old white female admitted on February 06 because of the problems in below Acute on chronic L hip/leg pain-likely secondary to reportedly mechanical fall fall in addition to psychosomatic/anxiety X-rays on admission for the hip sacrum left femoral and left knee, No fracture or dislocation within the pelvis, hips, sacrum, or left femur per report L spine MRI was done on 02/14/2017 which shows no acute conditions, but do have some chronic disc bulging: per report of MRI: 1. Overall, no significant change compared to the prior study. No fracture or subluxation within the lumbar spine. 2. No significant change within the lower lumbar spine degenerative changes Had been had fairly pain control , with combined her tramadol and heating pack , however has been reported poor controlled of the pain and requested narcotic pain medicine for 2 days History of depression and anxiety PTSD, was seen by psychiatry outside psych Dr. Ramos, In-house psychiatry service saw patient, have recommended a trial of Cymbalta for pain, anxiety and depression which the patient declines. Psychiatry talked to Dr. Ramos , they have start tapering off benzo as outpatient , for now ,will continue Klonopin 1 mg by mouth twice a day when necessary Continue Lexapro 30 mg daily Psych have also recommended that the patient get back into therapy, perhaps EMDR , to help reframe her traumatic experiences which she also declines per psychiatry : no additional intervention is needed at this time, has reviewed risks of benzos with pain meds and will continue taper as appropriate as outpatient. Nurse talked to pain management on-call, they feel not too much they can have more input -Continue current regimen of Voltaren gel QID, baclofen 20 mg QID and ultram No bowel movement for 3 days, stopped the MiraLAX first dose now and as needed Episode of CP-resolved -EKG NSR -trop neg -D dimer WNL Urinary retention and UTI, stable -Urine culture growing gram - bacilli and Klebsiella -Start Cipro 500 mg po BID x 7 days - Patient reportedly is indicated yeast infection on Cipro agreed to start Diflucan for prevention -continue whitlock -Urology on board. Void trial next week Possible type II diabetic with elevated HbA1c , and Elevated glucose Denies Hx of diabetes - HbA1C 7.4 - Insulin sliding scale with BGS ac/hs - will need lifestyle changes-->ADA diet - We'll start Metformin for now -will need glucometer upon d/c -f/u PCP for a recheck in 2 weeks Hypothyroidism - Levothyroxine 100mcg daily VTE Prophylaxis - Lovenox 40 mg SQ daily DIPSO -awaiting placement -stable for d/c from a medical standpoint, waiting for dispo CODE STATUS -LEVEL I FULL CODE Continued [facility] stay due to: inadequate oral pain control Discharge planning: home with home health, rehab hospital, uncertain
[2017-02-15 15:19] VITALS: BP 115/71; PULSE 63; TEMP 36.9; O2SAT 95
[2017-02-15] MEDS ORDERED: KETOROLAC TROMETHAMINE 60 MG/2 ML VIAL IM STA (16:51)
[2017-02-15] MEDS: FERROUS SULFATE 325 MG TAB PO SCH (18:32)
[2017-02-15 20:37] VITALS: BP 136/81; PULSE 65
[2017-02-15] MEDS: METFORMIN HCL 500 MG TAB PO SCH (20:39)
[2017-02-15] MEDS: SIMVASTATIN 40 MG TAB PO SCH (20:39)
[2017-02-15 23:51] VITALS: BP 142/80; PULSE 59; TEMP 36.8; O2SAT 95
[2017-02-16] MEDS: BACLOFEN TAB 20 MG TAB PO SCH ×4 (00:26→18:04)
[2017-02-16] MEDS: DEXAMETHASONE CONC SOLN 3.75 MG, NYSTATIN SUSP 30 ML, DiphenhydrAMINE HCL SYRUP 300 MG,... PO SCH ×20 (00:27→18:04)
[2017-02-16] MEDS: TRAMADOL HCL 50 MG TAB PO PRN ×4 (00:29→22:58)
[2017-02-16] MEDS: PROMETHAZINE HCL 25 MG TAB PO PRN (01:02)
[2017-02-16] MEDS: CLONAZEPAM 1 MG TAB PO PRN (01:04)
[2017-02-16] MEDS: LEVOTHYROXINE 100 MCG TAB PO SCH (06:28)
[2017-02-16 07:16] VITALS: BP 136/79; PULSE 61; TEMP 36.9; O2SAT 96
[2017-02-16 08:00] VITALS: O2SAT 96
[2017-02-16] MEDS: ESCITALOPRAM OXALATE 10 MG TAB PO SCH (09:02)
[2017-02-16] MEDS: CIPROFLOXACIN 500 MG TAB PO SCH ×2 (09:02→22:25)
[2017-02-16] MEDS: LORATADINE 10 MG TAB PO SCH (09:02)
[2017-02-16] MEDS: METOPROLOL TARTRATE 25 MG TAB PO SCH ×2 (09:02→22:26)
[2017-02-16] MEDS: PANTOprazole SOD 40 MG TAB PO SCH (09:03)
[2017-02-16] MEDS: FLUCONAZOLE 100 MG TAB PO SCH (09:03)
[2017-02-16] MEDS: ASCORBIC ACID 500 MG TAB PO SCH (09:03)
[2017-02-16] MEDS: DIVALPROEX 500 MG EXTENDED RELEASE TAB PO SCH (09:04)
[2017-02-16] MEDS: CHOLECALCIFEROL 1000 INTER.UNIT TAB PO SCH (09:04)
[2017-02-16] MEDS: METFORMIN HCL 500 MG TAB PO SCH ×2 (09:05→22:26)
[2017-02-16] MEDS: DOCUSATE SODIUM 100 MG CAP PO SCH ×2 (09:05→22:25)
[2017-02-16] MEDS: ESCITALOPRAM OXALATE 20 MG TAB PO SCH (09:05)
[2017-02-16] MEDS: LINACLOTIDE 145 MCG PO SCH (09:06)
[2017-02-16] MEDS: ENOXAPARIN 40 MG/0.4 ML SYR SQ SCH (09:06)
[2017-02-16] MEDS: DICLOFENAC SOD 1% GEL 100 GM TUBE EXT SCH ×4 (09:10→22:25)
[2017-02-16] MEDS: INSULIN ASPART 100 UNITS/ML 3 ML PEN SC SCH ×4 (10:15→21:00)
[2017-02-16 15:53] VITALS: BP 113/86; PULSE 60; TEMP 36.8; O2SAT 94
[2017-02-16] MEDS ORDERED: ZOLPIDEM TARTRATE 10 MG TAB PO PRN (16:15)
--- NOTE | 2017-02-16 16:20 | Progress Note ---
Subjective Date of Service: February 16, 2017. Subjective Pt evaluation today including: conversation w/ patient, conversation w/ family , physical exam, chart review, lab review, review of studies, conversation w/ regional sales consultant, review of inpatient medication list Complaining of left lateral hip pain radiation down to left lower extremity, is using heating pack, possible heating pack a little help, Declined tramadol, reported sleep poorly last night, and poor oral intake Problem List Medical Problems: (1) Abdominal pain Status: Acute (2) Abdominal pain Status: Acute (3) ANXIETY STATE NOS Status: Chronic (4) Contusion of left foot Status: Acute (5) Contusion of left hip Status: Acute (6) Fall Status: Acute (7) Hip pain, left Status: Acute (8) Injury of left foot Status: Acute (9) Intractable abdominal pain Status: Acute (10) Left upper quadrant pain Status: Acute (11) Vertigo Status: Acute Review of Systems Constitutional: + fatigue, + weakness, No chills, No fever, No problem reported , No sweats, No weight loss Eyes: No diplopia, No discharge, No eye pain, No redness, No worsening of vision ENT: No dental problems, No hearing loss, No nasal symptoms, No sore throat, No tinnitus, No trouble swallowing, No unusual epistaxis Respiratory: No cough, No dyspnea at rest, No dyspnea on exertion, No hemoptysis, No shortness of breath, No sputum, No wheezing Cardiac: No PND, No chest pain, No claudication, No edema, No orthopnea, No palpitations Abdomen: No constipation, No diarrhea, No nausea, No pain, No vomiting Musculoskeletal: + joint pain, No calf pain, No muscle pain, No swelling Female : No abnormal vaginal bleeding, No dysuria, No hematuria, No incontinence, No urinary frequency, No vaginal discharge Neurologic: No balance problems, No memory loss, No numbness/tingling, No paralysis, No vertigo, No weakness Psychiatric: No anhedonism, No anxiety, No depression symptoms, No insomnia, No substance abuse Heme: No abnormal bleeding/bruising, No clotting problems, No night sweats, No swollen lymph nodes Endo: No excessive thirst, No excessive urination, No fatigue Skin: No bleeding, No color change, No itch, No new/changing skin lesions, No rash Objective Vital Signs Date Time Temp Pulse Resp B/P Pulse Ox O2 Delivery O2 Flow Rate FiO2 02/16/17 15:53 36.8 60 18 113/86 94 Room Air 02/16/17 08:00 96 Room Air 02/16/17 07:16 36.9 61 16 136/79 96 Room Air 02/16/17 00:20 Room Air 02/15/17 23:51 36.8 59 16 142/80 95 Room Air 02/15/17 20:37 65 136/81 Physical Exam General Appearance: WD/WN, no apparent distress, + obese Eyes: normal inspection, PERRL, EOMI, sclerae normal, + abnormal sclerae exam ENT: normal ENT inspection, hearing grossly normal, pharynx normal Neck: supple, no adenopathy, thyroid normal, no JVD, no carotid bruits, trachea midline Respiratory/Chest: chest non-tender, lungs clear, normal breath sounds, no respiratory distress, no accessory muscle use Cardiovascular: regular rate, rhythm, no edema, no gallop, no JVD, no murmur Abdomen: normal bowel sounds, non tender, soft, no organomegaly, no pulsatile mass Extremities: normal range of motion, non-tender, normal inspection, no pedal edema, no calf tenderness, normal capillary refill, pelvis stable Neurologic/Psychiatric: reception manager II-XII nml as tested, no motor/sensory deficits, alert, normal mood/affect, oriented x 3 Skin: normal color, warm/dry, no rash Lymphatic: no adenopathy Laboratory Results Last 24 Hours Test 02/15/17 17:02 02/15/17 20:38 02/16/17 07:49 02/16/17 11:54 Bedside Glucose 111 mg/dl 154 mg/dl 111 mg/dl 107 mg/dl Assessment and Plan 51-year-old white female admitted on Feb 06 2017 because of the problems in below Acute on chronic L hip/leg pain-likely secondary to reportedly mechanical fall fall in addition to psychosomatic/anxiety Believe multiple issues include psychosomatic conditions and family dynamic problems X-rays on admission for the hip sacrum left femoral and left knee, No fracture or dislocation within the pelvis, hips, sacrum, or left femur per report L spine MRI was done on 02/14/2017 which shows no acute conditions, but do have some chronic disc bulging: per report of MRI: 1. Overall, no significant change compared to the prior study. No fracture or subluxation within the lumbar spine. 2. No significant change within the lower lumbar spine degenerative changes Had been had fairly pain control , with combined her tramadol and heating pack , however has been reported poor controlled of the pain and requested narcotic pain medicine for 2 -3 days History of depression and anxiety PTSD, was seen by psychiatry outside psych Dr. Ramos, In-house psychiatry service saw patient, have recommended a trial of Cymbalta for pain, anxiety and depression which the patient declines. Psychiatry talked to Dr. Ramos , they have start tapering off benzo as outpatient , for now ,will continue Klonopin 1 mg by mouth twice a day when necessary Continue Lexapro 30 mg daily Psych have also recommended that the patient get back into therapy, perhaps EMDR , to help reframe her traumatic experiences which she also declines per psychiatry : no additional intervention is needed at this time, has reviewed risks of benzos with pain meds and will continue taper as appropriate as outpatient. Nurse talked to pain management on-call, they feel not too much they can have more input -Continue current regimen of Voltaren gel QID, baclofen 20 mg QID and ultram Constipation , the MiraLAX first dose now and as needed Episode of CP-resolved -EKG NSR -trop neg -D dimer WNL Urinary retention and UTI, stable -Urine culture growing gram - bacilli and Klebsiella -Start Cipro 500 mg po BID. 3/7 days - Patient reportedly is indicated yeast infection on Cipro, i agreed to start Diflucan for prevention, differential be discontinued when Cipro finish up -continue whitlock -Urology on board. Void trial next week Possible type II diabetic with elevated HbA1c , and Elevated glucose Denies Hx of diabetes - HbA1C 7.4 - Insulin sliding scale with BGS ac/hs - will need lifestyle changes-->ADA diet - We'll start Metformin for now -will need glucometer upon d/c -f/u PCP for a recheck in 2 weeks Hypothyroidism - Levothyroxine 100mcg daily VTE Prophylaxis - Lovenox 40 mg SQ daily With present of in bedside and nursing, discussed patient's condition and care plan. Patient continued to ask narcotic medication, I told her that narcotic pain medicine will cause more harm to her body especially when it is taken together with Klonopin, Her left lower extremity pain, she'll need to be treated with combined methods such as reasonable pain control with current medication and heating pack, although bed to the chair, cooperation with physical therapy, and better rest at nighttime. I offered to increased tramadol dose, and Ambien and nighttime for insomnia, patient said "whatever he wanted to", she seems frustrated, but I told her this is the best I can do DIPSO -awaiting placement -stable for d/c from a medical standpoint, waiting for dispo CODE STATUS -LEVEL I FULL CODE Continued [facility] stay due to: inadequate oral pain control Discharge planning: home with home health, rehab hospital, uncertain
[2017-02-16] MEDS: FERROUS SULFATE 325 MG TAB PO SCH (18:04)
[2017-02-16 22:23] VITALS: BP 121/72; PULSE 65
[2017-02-16] MEDS: SIMVASTATIN 40 MG TAB PO SCH (22:26)
[2017-02-16 23:35] VITALS: BP 133/80; PULSE 64; TEMP 36.8; O2SAT 93
[2017-02-17] MEDS: BACLOFEN TAB 20 MG TAB PO SCH ×4 (00:27→19:39)
[2017-02-17] MEDS: DEXAMETHASONE CONC SOLN 3.75 MG, NYSTATIN SUSP 30 ML, DiphenhydrAMINE HCL SYRUP 300 MG,... PO SCH ×25 (00:28→23:41)
[2017-02-17] MEDS: TRAMADOL HCL 50 MG TAB PO PRN ×3 (04:54→21:37)
[2017-02-17] MEDS: LEVOTHYROXINE 100 MCG TAB PO SCH (05:59)
[2017-02-17 07:27] VITALS: BP 133/79; PULSE 56; TEMP 36.5; O2SAT 98
[2017-02-17] MEDS ORDERED: POLYETHYLENE (MIRALAX) 17 GM PACK PO SCH (09:00)
[2017-02-17] MEDS: LORATADINE 10 MG TAB PO SCH (09:35)
[2017-02-17] MEDS: ESCITALOPRAM OXALATE 20 MG TAB PO SCH (09:35)
[2017-02-17] MEDS: DOCUSATE SODIUM 100 MG CAP PO SCH ×2 (09:35→21:14)
[2017-02-17] MEDS: METOPROLOL TARTRATE 25 MG TAB PO SCH ×2 (09:35→21:00)
[2017-02-17] MEDS: METFORMIN HCL 500 MG TAB PO SCH ×2 (09:35→21:14)
[2017-02-17] MEDS: FLUCONAZOLE 100 MG TAB PO SCH (09:35)
[2017-02-17] MEDS: ESCITALOPRAM OXALATE 10 MG TAB PO SCH (09:35)
[2017-02-17] MEDS: DICLOFENAC SOD 1% GEL 100 GM TUBE EXT SCH ×4 (09:36→21:15)
[2017-02-17] MEDS: DIVALPROEX 500 MG EXTENDED RELEASE TAB PO SCH (09:36)
[2017-02-17] MEDS: CIPROFLOXACIN 500 MG TAB PO SCH ×2 (09:36→21:14)
[2017-02-17] MEDS: CHOLECALCIFEROL 1000 INTER.UNIT TAB PO SCH (09:36)
[2017-02-17] MEDS: ASCORBIC ACID 500 MG TAB PO SCH (09:37)
[2017-02-17] MEDS: PANTOprazole SOD 40 MG TAB PO SCH (09:37)
[2017-02-17] MEDS: LINACLOTIDE 145 MCG PO SCH (09:37)
[2017-02-17] MEDS: ENOXAPARIN 40 MG/0.4 ML SYR SQ SCH (09:37)
[2017-02-17] MEDS: INSULIN ASPART 100 UNITS/ML 3 ML PEN SC SCH ×4 (09:48→21:00)
[2017-02-17] MEDS ORDERED: BISACODYL 10 MG SUPP PR PRN (12:00)
--- NOTE | 2017-02-17 14:54 | Medical Student: [facility] ---
Med Student Progress Note Date of Service February 17, 2017. Subjective Pt evaluation today including: conversation w/ patient, conversation w/ family () Pain: 8/10 PO Intake: good Voiding: whitlock catheter in place Ulysses Marcum is a 51 yo female on hospital day 11 with acute on chronic L myofascial hip pain. She continues to have severe pain today, 810,but diminished. States she may be becoming "numb" to the pain. Pain starts in her lateral hip and radiates along later leg to lateral knee. It is worse with movement or prolonged immobility. It is improved when she is not weight bearing or laying on L side. She notes need for stronger pain meds. She has been up go to to the bathroom with assist or with her walker. She does her "own PT" in bed , doing leg lifts. She notes feeling fatigued when PT comes and doesn't always want to participate. She has not had a bowel movement in three days and continues to have a whitlock in place for urinary retention. She feels "foggy" after taking tramadol during the day and has trouble sleeping at night. Ambien helps her fall asleep but she cannot stay asleep. She prefers to keep the blinds down because it "helps with my agarophobia" but allowed me to open the blinds all the way today. She notes she feels comfortable in her room but wants to be out of the hospital. Her appetite is decreased. She denies chest pain, shortness of breath, dizziness, lightheadedness, fever, chills, nausea, vomiting. Review of Systems Constitutional: + fatigue, + problem reported (fogginess with Tramadol), + see HPI, + weakness, No chills, No fever, No sweats, No weight loss Eyes: No problem reported ENT: No problem reported Respiratory: No problem reported Cardiac: No problem reported Abdomen: + constipation, No problem reported Musculoskeletal: + joint pain (L hip to knee), No calf pain Female : + problem reported (urinary retention), No vaginal discharge Neurologic: No problem reported Psychiatric: + anhedonism, + anxiety (with arorophobia), + insomnia Heme: No problem reported Endo: No problem reported Skin: No problem reported Objective Vital Signs Date Time Temp Pulse Resp B/P Pulse Ox O2 Delivery O2 Flow Rate FiO2 02/17/17 08:19 Room Air 02/17/17 07:27 36.5 56 19 133/79 98 Room Air 02/17/17 00:30 Room Air 02/16/17 23:35 36.8 64 16 133/80 93 Room Air 02/16/17 22:23 65 121/72 02/16/17 16:20 Room Air 02/16/17 15:53 36.8 60 18 113/86 94 Room Air Physical Exam Comments: Vitals: See above. General: Tired-appearing, Obese female in on no apparent distress. Laying on her R side. HEENT: NCAT, EOMI, PERRLA. MMM. CV: S1, S2. No MRG, RRR. Peripheral pulses equal and intact. Pulm: Lungs clear to auscultation diffusely. Abdomen: Soft, non-tender, non-distended. Bowel sounds hypoactive. MSK: Tenderness to palpation of left trochanter along IT band to lateral knee. Worse when stretched. Psych: AOx3. Appears to be comfortable in her hospital room. Keeps window shade and door curtain drawn unless prompted to open. Laboratory Results Last 24 Hours Test 02/16/17 16:58 02/16/17 20:15 02/17/17 08:08 02/17/17 11:46 Bedside Glucose 169 mg/dl 113 mg/dl 121 mg/dl 134 mg/dl Assessment and Plan Assessment and Plan: Ms Ulysses Marcum is a 51 yo female on hospital day 11 with acute on chronic L hip pain and anxiety with agorophobia. Individual assessment and plan are as follows : 1. Hip pain: Improved but persistent. Likely large psychosomato component. Patient continues to have severe pain despite multiple meds. Notes sharp pain has decreased with baclofen. Will continue with PRN toradol. Will continue with ambien PRN for sleep aid. Encouraged PT/OT, instructed on stretches to do to stretch IT band. Will need rehab for deconditioning. 2. Anxiety with agorophobia and PTSD: Severe, persistent. Has been working with Dr. Ramos to wean clonazepam from tid to bid. Will continue bid prn. Continue escitalopram 30mg qd and valproate 500mg qd. Encouraged therapy with counselor. Seen by psych, and psych agrees. Need to regulate environment as able, opening blinds during day. 3. DMII: Newly diagnosed. Last a1C was 7.4. On metformin 500mg BID and sliding scale insulin aspart. 4. Urinary Retention: Secondary to pain. Whitlock in place. Will remove Whitlock tomorrow and do voiding trial. 5. UTI: Klebsiella. On cipro day 4 of 14 day course. 6. Constipation: No bowel movement for 3 days. Will encourage activity. Increase miralax to BID. Will continue linzess 145mvh. 7. Hypotyroidism: Continue levothyroxine 100mcg qd. 8. Prolonged QT: Aware. Will avoid meds that prolong QT if possible 9. DVT Proph: Lovenox 40mg 10. Dispo: possible [employer] tomorrow. Pt states someone from [employer] talked to her, now just needs insurance approval. Continue PT/OT. Diabetic and low fat diets. Discharge planning: rehab hospital, uncertain
[2017-02-17 15:10] VITALS: BP 104/66; PULSE 57; TEMP 36.6; O2SAT 94
[2017-02-17] MEDS: FERROUS SULFATE 325 MG TAB PO SCH (17:53)
[2017-02-17] MEDS: SIMVASTATIN 40 MG TAB PO SCH (21:13)
[2017-02-17] MEDS: POLYETHYLENE (MIRALAX) 17 GM PACK PO SCH (21:13)
[2017-02-17 21:17] VITALS: BP 101/63
[2017-02-17 22:54] VITALS: BP 115/71; PULSE 69; TEMP 36.7; O2SAT 93
[2017-02-17] MEDS: PROMETHAZINE HCL 25 MG TAB PO PRN (23:40)
[2017-02-18] MEDS: BACLOFEN TAB 20 MG TAB PO SCH ×3 (01:11→13:02)
[2017-02-18] MEDS: LEVOTHYROXINE 100 MCG TAB PO SCH (06:28)
[2017-02-18] MEDS: DEXAMETHASONE CONC SOLN 3.75 MG, NYSTATIN SUSP 30 ML, DiphenhydrAMINE HCL SYRUP 300 MG,... PO SCH ×10 (06:29→11:54)
--- NOTE | 2017-02-18 07:23 | Progress Note ---
Subjective Date of Service: February 18, 2017. Subjective Pt evaluation today including: conversation w/ patient, chart review, lab review Voiding: whitlock catheter in place (patent, draining clear, yellow urine) 51 yo female with urinary retention. UC&S growing Klebsiella. Currently on Cipro. She remains constipated. Per hospitalist notes, continues to periodically request narcotics. Awaiting rehab placement. Problem List Medical Problems: (1) Abdominal pain Status: Acute (2) Abdominal pain Status: Acute (3) ANXIETY STATE NOS Status: Chronic (4) Contusion of left foot Status: Acute (5) Contusion of left hip Status: Acute (6) Fall Status: Acute (7) Hip pain, left Status: Acute (8) Injury of left foot Status: Acute (9) Intractable abdominal pain Status: Acute (10) Left upper quadrant pain Status: Acute (11) Vertigo Status: Acute Review of Systems Constitutional: No chills, No fever Respiratory: No shortness of breath Cardiac: No chest pain Abdomen: No nausea, No pain, No vomiting Female : No hematuria Heme: No abnormal bleeding/bruising Objective Vital Signs Date Time Temp Pulse Resp B/P Pulse Ox O2 Delivery O2 Flow Rate FiO2 02/17/17 23:45 Room Air 02/17/17 22:54 36.7 69 16 115/71 93 Room Air 02/17/17 21:17 101/63 02/17/17 16:15 Room Air 02/17/17 15:10 36.6 57 18 104/66 94 Room Air 02/17/17 08:19 Room Air 02/17/17 07:27 36.5 56 19 133/79 98 Room Air Physical Exam General Appearance: no apparent distress Eyes: normal inspection ENT: hearing grossly normal Neck: no JVD Respiratory/Chest: no respiratory distress, no accessory muscle use Cardiovascular: no JVD Extremities: normal inspection Neurologic/Psychiatric: alert, normal mood/affect, oriented x 3 Skin: normal color Laboratory Results Last 24 Hours Test 02/17/17 08:08 02/17/17 11:46 02/17/17 17:07 02/17/17 19:37 Bedside Glucose 121 mg/dl 134 mg/dl 105 mg/dl 136 mg/dl Test 02/18/17 06:14 Creatinine 1.00 mg/dl Est Creatinine Clear Calc Drug Dose 74.7 ml/min Estimated GFR () 76.1 Estimated GFR (Non- 65.6 Assessment and Plan A/P: Urinary retention AFVSS. Whitlock catheter has been in place for over 1 week. Will attempt a trial of void this morning. If pt fails trial of void, will need whitlock catheter replaced and recommend starting Flomax at that time. Continue Cipro for 7-10 days of therapy. Will continue to follow along with primary service at this time. Discharge planning: rehab hospital, uncertain
[2017-02-18] MEDS: TRAMADOL HCL 50 MG TAB PO PRN (07:25)
[2017-02-18 07:44] VITALS: BP 118/72; PULSE 62; TEMP 36.7; O2SAT 95
[2017-02-18 07:48] VITALS: O2SAT 95
[2017-02-18] MEDS: CIPROFLOXACIN 500 MG TAB PO SCH (08:45)
[2017-02-18] MEDS: LORATADINE 10 MG TAB PO SCH (08:45)
[2017-02-18] MEDS: DIVALPROEX 500 MG EXTENDED RELEASE TAB PO SCH (08:46)
[2017-02-18] MEDS: DOCUSATE SODIUM 100 MG CAP PO SCH (08:46)
[2017-02-18] MEDS: FLUCONAZOLE 100 MG TAB PO SCH (08:47)
[2017-02-18] MEDS: LINACLOTIDE 145 MCG PO SCH (08:48)
[2017-02-18] MEDS: ESCITALOPRAM OXALATE 10 MG TAB PO SCH (08:48)
[2017-02-18] MEDS: METFORMIN HCL 500 MG TAB PO SCH (08:48)
[2017-02-18] MEDS: ESCITALOPRAM OXALATE 20 MG TAB PO SCH (08:48)
[2017-02-18] MEDS: PANTOprazole SOD 40 MG TAB PO SCH (08:49)
[2017-02-18] MEDS: ASCORBIC ACID 500 MG TAB PO SCH (08:49)
[2017-02-18] MEDS: CHOLECALCIFEROL 1000 INTER.UNIT TAB PO SCH (08:49)
[2017-02-18] MEDS: POLYETHYLENE (MIRALAX) 17 GM PACK PO SCH (08:50)
[2017-02-18] MEDS: ENOXAPARIN 40 MG/0.4 ML SYR SQ SCH (08:51)
[2017-02-18 08:52] VITALS: BP 102/66; PULSE 67
[2017-02-18] MEDS: METOPROLOL TARTRATE 25 MG TAB PO SCH (08:54)
[2017-02-18] MEDS: DICLOFENAC SOD 1% GEL 100 GM TUBE EXT SCH ×2 (08:55→13:00)
--- NOTE | 2017-02-18 08:55 | Progress Note ---
Subjective Date of Service: February 17, 2017. Subjective Pt evaluation today including: conversation w/ patient, conversation w/ family (), physical exam, review of inpatient medication list Pain: moderate only, improving PO Intake: adequate Voiding: whitlock catheter in place long talk with patient regarding her left hip pain, whitlock catheter, her weakness and plans for discharge, occurred on 02/17 with family at the bedside pain was improving, she felt more motivated to participate in therapy said that the Ultram was making her sleepy and not really helping with pain she was ready to get whitlock out on 02/18 and try to void she and family hopeful for [facility] on 02/18 Problem List Medical Problems: (1) Abdominal pain Status: Acute (2) Abdominal pain Status: Acute (3) ANXIETY STATE NOS Status: Chronic (4) Contusion of left foot Status: Acute (5) Contusion of left hip Status: Acute (6) Fall Status: Acute (7) Hip pain, left Status: Acute (8) Injury of left foot Status: Acute (9) Intractable abdominal pain Status: Acute (10) Left upper quadrant pain Status: Acute (11) Vertigo Status: Acute Review of Systems Constitutional: + fatigue, + weakness, No chills, No fever, No problem reported , No see HPI, No sweats, No weight loss Respiratory: No cough, No dyspnea at rest, No dyspnea on exertion, No hemoptysis, No problem reported, No see HPI, No shortness of breath, No sputum, No wheezing Cardiac: No PND, No chest pain, No claudication, No edema, No orthopnea, No palpitations, No problem reported, No see HPI Breast: No breast lump, No breast pain, No change in shape, No nipple discharge , No problem reported, No see HPI Abdomen: No GI bleeding, No constipation, No diarrhea, No nausea, No pain, No problem reported, No see HPI, No vomiting Musculoskeletal: + joint pain (left hip, moderate) Female : + problem reported (whitlock in for one week) Neurologic: No balance problems, No memory loss, No numbness/tingling, No paralysis, No problem reported, No see HPI, No vertigo, No weakness Psychiatric: + anxiety, + depression symptoms Heme: No abnormal bleeding/bruising, No clotting problems, No night sweats, No problem reported, No see HPI, No swollen lymph nodes Endo: No excessive thirst, No excessive urination, No fatigue, No problem reported, No see HPI Skin: No bleeding, No color change, No itch, No new/changing skin lesions, No problem reported, No rash, No see HPI All Other Systems: Reviewed and Negative Medications Current Inpatient Medications Medications (Trade) Dose Ordered Sig/Prachi Route Start Time Stop Time Status Last Admin Dose Admin Enoxaparin Sodium (Lovenox Inj) 40 mg Q24H SQ 02/06/17 09:00 03/08/17 08:59 02/17/17 09:37 40 MG Acetaminophen (Tylenol Tab) 650 mg Q4H PRN PO 02/06/17 04:45 03/08/17 04:44 02/13/17 03:47 650 MG Escitalopram Oxalate (Lexapro Tab) 20 mg QAM PO 02/06/17 09:00 03/08/17 08:59 02/17/17 09:35 20 MG Escitalopram Oxalate (Lexapro Tab) 10 mg DAILY PO 02/06/17 09:00 03/08/17 08:59 02/17/17 09:35 10 MG Levothyroxine Sodium (Synthroid Tab) 100 mcg DAILYBB PO 02/06/17 06:15 03/08/17 06:59 02/18/17 06:28 100 MCG Loratadine (Claritin Tab) 10 mg QAM PO 02/06/17 09:00 03/08/17 08:59 02/17/17 09:35 10 MG Metoprolol Tartrate (Lopressor Tab) 25 mg BID PO 02/06/17 09:00 03/08/17 08:59 02/17/17 09:35 25 MG Promethazine HCl (Phenergan Tab) 25 mg Q6H PRN PO 02/06/17 05:00 03/08/17 04:59 02/17/17 23:40 25 MG Simvastatin (Zocor Tab) 40 mg HS PO 02/06/17 21:00 03/08/17 20:59 02/17/17 21:13 40 MG Ascorbic Acid (Vitamin C Tab) 500 mg QAM PO 02/06/17 09:00 03/08/17 08:59 02/17/17 09:37 500 MG Pantoprazole Sodium (Protonix Tab) 40 mg QAM PO 02/06/17 09:00 03/08/17 08:59 02/17/17 09:37 40 MG Miscellaneous (Iv Fluids Completed) 1 ea PRN PRN N/A 02/06/17 06:30 02/06/18 06:29 Linaclotide (Linzess) 145 mcg QAM PO 02/06/17 09:00 03/08/17 08:59 02/17/17 09:37 145 MCG Clonazepam (Klonopin Tab) 1 mg BID PRN PO 02/06/17 08:30 03/08/17 08:29 02/16/17 01:04 1 MG Baclofen (Lioresal Tab) 20 mg Q6H PO 02/06/17 19:00 03/08/17 18:59 02/18/17 06:28 20 MG Diclofenac Sodium (Voltaren 1% Top Gel) 1 appln QID EXT 02/06/17 17:00 03/08/17 16:59 02/17/17 21:15 1 APPLN Divalproex Sodium (Depakote Extended Rel Tab) 500 mg DAILY PO 02/07/17 09:00 03/09/17 08:59 02/17/17 09:36 500 MG Ferrous Sulfate (Feosol Tab) 325 mg QDD PO 02/07/17 17:45 03/09/17 17:44 02/17/17 17:53 325 MG Glucagon (Glucagon Inj) 1 mg UD PRN SQ 02/07/17 19:15 03/09/17 19:14 Glucose (Glucose Chew Tab) 1 tabs UD PRN PO 02/07/17 19:15 03/09/17 19:14 Insulin Aspart (novoLOG ASPART) SLIDING SCALE If C... ACHS SC 02/07/17 12:00 03/09/17 11:59 02/17/17 18:01 4 UNITS Glucose (Glucose 40% Gel) 15-30 GRAMS 15 GRAMS... UD PRN PO 02/07/17 11:00 03/09/17 10:59 Ergocalciferol (Vitamin D Cap) 50,000 interunit Sa@0900 PO 02/08/17 09:00 03/10/17 08:59 02/15/17 07:39 50,000 INTERUNIT Cholecalciferol (Vitamin D Tab) 4,000 inter.unit QAM PO 02/08/17 09:00 03/10/17 08:59 02/17/17 09:36 4,000 INTER.UNIT Metoclopramide HCl (Reglan Tab) 10 mg BID PRN PO 02/11/17 12:15 03/13/17 12:14 02/14/17 09:15 10 MG Docusate Sodium (coLACE CAP) 100 mg BID PO 02/12/17 21:00 03/14/17 20:59 02/17/17 21:14 100 MG Ciprofloxacin (Cipro Tab) 500 mg BID PO 02/20/17 21:00 03/17/17 11:17 Ciprofloxacin (Cipro Tab) 500 mg BID PO 02/14/17 12:00 02/19/17 20:59 02/17/17 21:14 500 MG Fluconazole 100 mg QAM PO 02/14/17 13:00 02/20/17 08:59 02/17/17 09:35 100 MG Dexamethasone/ Nystatin/ Diphenhydramine HCl/Sucrose/ Microcrystalline Cellulose/Barcode (Decadron Conc Soln/Mycostatin Susp/Benadryl Syrup/Ora-Sweet Syrup/Ora-Plus Susp. Vehicle) Q6 PO 02/14/17 12:00 03/16/17 11:59 02/18/17 06:29 5 ML Menthol (Nice Ninfa) 1 ninfa PRN PRN PO 02/15/17 05:15 03/17/17 05:14 02/15/17 05:49 1 NINFA Metformin HCl (Glucophage Tab) 500 mg BID PO 02/15/17 21:00 03/17/17 20:59 02/17/17 21:14 500 MG Tramadol HCl (Ultram Tab) 50 mg Q4 PRN PO 02/16/17 20:00 03/18/17 19:59 02/18/17 07:25 50 MG Zolpidem Tartrate (Ambien Tab) 10 mg HS PRN PO 02/16/17 16:15 03/18/17 16:14 02/16/17 22:58 10 MG Polyethylene (Miralax Powder Packet) 17 gm BID PO 02/17/17 21:00 03/19/17 20:59 02/17/17 21:13 17 GM Bisacodyl (Dulcolax Supp) 10 mg DAILY PRN SD 02/17/17 12:00 03/19/17 11:59 Objective Vital Signs Date Time Temp Pulse Resp B/P Pulse Ox O2 Delivery O2 Flow Rate FiO2 02/18/17 07:55 Room Air 02/18/17 07:48 95 Room Air 02/18/17 07:44 36.7 62 20 118/72 95 Room Air 02/17/17 23:45 Room Air 02/17/17 22:54 36.7 69 16 115/71 93 Room Air 02/17/17 21:17 101/63 02/17/17 16:15 Room Air 02/17/17 15:10 36.6 57 18 104/66 94 Room Air Physical Exam General Appearance: no apparent distress, + obese Eyes: normal inspection, EOMI, sclerae normal Neck: supple, no adenopathy, no JVD, trachea midline Respiratory/Chest: chest non-tender, lungs clear, normal breath sounds, no respiratory distress, no accessory muscle use Cardiovascular: regular rate, rhythm, no edema, no gallop, no JVD, no murmur Abdomen: normal bowel sounds, non tender, soft, no organomegaly Extremities: normal range of motion, normal inspection, no pedal edema, no calf tenderness, pelvis stable, + pertinent finding (left IT band tender to palpation) 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, no motor/sensory deficits, alert, oriented x 3, + depressed affect Skin: normal color, warm/dry, no rash Laboratory Results Last 24 Hours Test 02/17/17 11:46 02/17/17 17:07 02/17/17 19:37 02/18/17 06:14 Bedside Glucose 134 mg/dl 105 mg/dl 136 mg/dl Creatinine 1.00 mg/dl Est Creatinine Clear Calc Drug Dose 74.7 ml/min Estimated GFR () 76.1 Estimated GFR (Non- 65.6 Assessment and Plan 51-year-old white female admitted on Feb 06 2017 because severe left hip pain, no clear cause on imaging, multiple psychosocial issues that lead to a prolonged hospitalization Acute on chronic L hip/leg pain-likely secondary to reportedly mechanical fall fall in addition to psychosomatic/anxiety Believe multiple issues include psychosomatic conditions and family dynamic problems X-rays on admission for the hip sacrum left femoral and left knee, No fracture or dislocation within the pelvis, hips, sacrum, or left femur per report Lumbar spine MRI was done on 02/14/2017 which shows no acute conditions, but do have some chronic disc bulging: pain better controlled currently, more motivated with therapy she knows that what she needs is rehab at this point, no pressing medical issues she says she is motivated to go to [facility], hoping for d/c on 02/18 Continue current regimen of Voltaren gel QID, baclofen 20 mg QID and ultram History of depression and anxiety PTSD, was seen by psychiatry outside psych Dr. Ramos, In-house psychiatry service saw patient, have recommended a trial of Cymbalta for pain, anxiety and depression which the patient declines. Psychiatry talked to Dr. Ramos , they have start tapering off benzo as outpatient , for now ,will continue Klonopin 1 mg by mouth twice a day when necessary Continue Lexapro 30 mg daily Psych have also recommended that the patient get back into therapy, perhaps EMDR, to help reframe her traumatic experiences which she also declines Constipation, resolved, will continue Miralax Episode of CP-resolved -EKG NSR -trop neg -D dimer WNL Urinary retention and UTI, stable -Urine culture growing gram - bacilli and Klebsiella -Start Cipro 500 mg po BID. 4/7 days Void trial planned for 02/18 since it will be 7 days with whitlock Possible type II diabetic with elevated HbA1c , and Elevated glucose Denies Hx of diabetes - HbA1C 7.4 - Insulin sliding scale with BGS ac/hs - will need lifestyle changes-->ADA diet - started on Metformin -will need glucometer upon d/c -f/u PCP for a recheck in 2 weeks Hypothyroidism - Levothyroxine 100mcg daily VTE Prophylaxis - Lovenox 40 mg SQ daily Disposition: plan for [facility], hopeful for 02/18 if approved, she certainly needs rehabilitation at this point CODE STATUS -LEVEL I FULL CODE Discharge planning: rehab hospital, uncertain
[2017-02-18] MEDS: INSULIN ASPART 100 UNITS/ML 3 ML PEN SC SCH ×2 (09:01→12:04)
--- NOTE | 2017-02-18 10:06 | Medical Student: [facility] ---
Med Student Progress Note Date of Service February 18, 2017. Subjective Pt evaluation today including: conversation w/ patient Voiding: voiding difficulty (whitlock removed this morning. Will replace if not able to [facility]. ) Ulysses Marcum is a 51 yo female on hospital day 12 with acute on chronic L myofascial hip pain and significant anxiety with agorophobia. Her pain in improved today at 6/10. Pain starts in her lateral hip and radiates along later leg to lateral knee. It is worse with movement or prolonged immobility. It is improved when she is not weight bearing or laying on L side. She did not take tramadol last night and has not needed it since. She has been up to go to the bathroom with assist or with her walker. She does her "own PT" in bed, doing leg lifts, and IT band stretches I taught her. She notes feeling fatigued when PT comes and doesn't always want to participate. She has not had a bowel movement in four days and whitlock was removed this morning for void trial. She slept well last night and has the blinds open this morning. Her appetite has returned to normal. She denies chest pain, shortness of breath, dizziness, lightheadedness, fever, chills, nausea, vomiting. She is ready for rehab. Review of Systems Constitutional: No problem reported Eyes: No problem reported ENT: No problem reported Respiratory: No problem reported Cardiac: No problem reported Abdomen: No problem reported Musculoskeletal: + joint pain (L hip, improved) Female : + problem reported (urinary retention) Neurologic: No problem reported Psychiatric: No problem reported Objective Vital Signs Date Time Temp Pulse Resp B/P Pulse Ox O2 Delivery O2 Flow Rate FiO2 02/18/17 08:52 67 102/66 02/18/17 07:55 Room Air 02/18/17 07:48 95 Room Air 02/18/17 07:44 36.7 62 20 118/72 95 Room Air 02/17/17 23:45 Room Air 02/17/17 22:54 36.7 69 16 115/71 93 Room Air 02/17/17 21:17 101/63 02/17/17 16:15 Room Air 02/17/17 15:10 36.6 57 18 104/66 94 Room Air Physical Exam Comments: General: Tired-appearing, Obese female in on no apparent distress. Laying on back eating breakfast. Not favoring L side. HEENT: NCAT, EOMI, PERRLA. MMM. CV: S1, S2. No MRG, RRR. Pulm: Lungs clear to auscultation diffusely. Abdomen: Soft, non-tender, non-distended. Bowel sounds hypoactive. MSK: Tenderness to palpation of left trochanter along IT band to lateral knee. Worse when stretched. Tolerated well today. Psych: AOx3. Appears to be comfortable in her hospital room. Windows open today without prompting. Laboratory Results Last 24 Hours Test 02/17/17 11:46 02/17/17 17:07 02/17/17 19:37 02/18/17 06:14 Bedside Glucose 134 mg/dl 105 mg/dl 136 mg/dl Creatinine 1.00 mg/dl Est Creatinine Clear Calc Drug Dose 74.7 ml/min Estimated GFR () 76.1 Estimated GFR (Non- 65.6 Assessment and Plan Assessment and Plan: Ms Ulysses Marcum is a 51 yo female on hospital day 12 with acute on chronic L hip pain and anxiety with agorophobia. Her pain has decreased and she is approved for [facility] ([facility]), awaiting bed hopefully today. Individual assessment and plan are as follows: 1. Hip pain: Improved 03/01. Likely large psychosomato component. Notes sharp pain has decreased with baclofen. Will continue with PRN toradol and tramadol, has not taken tramadol since yesterday. Will continue with ambien PRN for sleep aid. Encouraged PT/OT, instructed on stretches to do to stretch IT band. Will need rehab for deconditioning. 2. Anxiety with agorophobia and PTSD: Severe, persistent. Has been working with Dr. Ramos to wean clonazepam from tid to bid. Will continue bid prn. Continue escitalopram 30mg qd and valproate 500mg qd. Encouraged therapy with counselor. Seen by psych, and psych agrees. Need to regulate environment as able, opening blinds during day. Improved today as patient appears less anxious. 3. DMII: Newly diagnosed. Last a1C was 7.4. On metformin 500mg BID and sliding scale insulin aspart. Diabetic diet. 4. Urinary Retention: Secondary to pain. Whitlock removed this morning. Will replace folely and start flomax per urology if she cannot void prior to discharge. 5. UTI: Klebsiella. On cipro day 5 of 10 day course. 6. Constipation: No bowel movement for 4 days. Will encourage activity. Miralax to BID. Will continue linzess 145mvh. 7. Hypotyroidism: Continue levothyroxine 100mcg qd. 8. Prolonged QT: Aware. Will avoid meds that prolong QT if possible 9. DVT Proph: Lovenox 40mg 10. Dispo: [facility] today once bed is available.Diabetic and low fat diets. Discharge planning: rehab hospital, uncertain
[2017-02-18] MEDS ORDERED: CPR500 PO (10:30)
[2017-02-18] MEDS ORDERED: DFL100 PO (10:30)
[2017-02-18] MEDS ORDERED: GLC500 PO (10:30)
[2017-02-18 10:35] VITALS: BP 102/66; PULSE 67; TEMP 36.7; O2SAT 95
--- NOTE | 2017-02-18 10:36 | Discharge Instructions ---
Discharge Instructions Date of Service February 18, 2017. Admission Reason for Admission: Contusion Of Left Hip, Fall, Left Hip Pain, Lumbar Discharge Discharge Diagnosis / Problem: Contusion left hip, deconditioning, anxiety disorder, DM type II Discharge Goals Goal(s): Improve function, Increase independence Activity Recommendations Activity Level: Assistance Required Therapies: Physical Therapy, Occupational Therapy Lifting Limitations: none Exercise/Sports Limitations: as tolerated Shower/Bathe: no limitations . Additional Information Patient informed of condition: Yes Advance Directives: No DNR: No Level of Care: Acute Rehab Communicable Disease: No Prognosis: Improving Oxygen at (LPM): no Whitlock Catheter: No Instructions / Follow-Up Instructions / Follow-Up Medications: - METFORMIN: started due to HbA1c of 7.4, started at 500mg BID, tolerating well , could likely titrate up to 1000mg BID soon - CIPRO: for treatment of UTI, needs 5 more days which would be 10 days total, extended treatment because she had a whitolck for a week - DIFLUCAN: to prevent yeast infection, take while taking Cipro - ULTRAM, VOLTAREN, DICLOFENAC: for treatment of left hip pain, working well - VITAMIN D: continue supplementation Acute on chronic L hip/leg pain-likely secondary to reportedly mechanical fall fall in addition to psychosomatic/anxiety Believe multiple issues include psychosomatic conditions and family dynamic problems X-rays on admission for the hip sacrum left femoral and left knee, No fracture or dislocation within the pelvis, hips, sacrum, or left femur per report Lumbar spine MRI was done on 02/14/2017 which shows no acute conditions, but do have some chronic disc bulging: pain better controlled currently, more motivated with therapy she knows that what she needs is rehab at this point, no pressing medical issues she says she is motivated to go to [facility], hoping for d/c on 02/18 Continue current regimen of Voltaren gel QID, baclofen 20 mg QID and ultram History of depression and anxiety PTSD, was seen by psychiatry outside psych Dr. Ramos, In-house psychiatry service saw patient, have recommended a trial of Cymbalta for pain, anxiety and depression which the patient declines. Psychiatry talked to Dr. Ramos , they have start tapering off benzo as outpatient , for now ,will continue Klonopin 1 mg by mouth twice a day when necessary Continue Lexapro 30 mg daily Psych have also recommended that the patient get back into therapy, perhaps EMDR, to help reframe her traumatic experiences which she also declines FOLLOW UP - physician at [facility] this week - PCP in one week after d/c from rehab, she needs follow up on new diagnosis of DM type II Current Hospital Diet Patient's current hospital diet: Diabetes Type 2 Diet Discharge Diet Recommended Diet: Diabetes Type 2 Diet Pending Studies Studies pending at discharge: no Physician Orders On Transfer POLST Discussion: Not Applicable Laboratory Results Hemoglobin A1c Test 02/06/17 00:12 Range/Units Estimated Average Glucose 166 mg/dl Hemoglobin A1c 7.4 H 4.5-5.6 % Medical Emergencies . Who to Call and When: Medical Emergencies: If at any time you feel your situation is an emergency, please call 911 immediately. . Non-Emergent Contact Non-Emergency issues call your: Primary Care Provider Call Non-Emergent contact if: your pain is not controlled, your pain is worsening, you have any medication questions . . "Provider Documentation" section prepared by Alex Toribio. . Core Measure Problem Core Measures: None [place] Drug Monitoring Program Search Results: no issues identified
[2017-02-18] MEDS: PROMETHAZINE HCL 25 MG TAB PO PRN (12:45)
--- NOTE | 2017-02-18 14:36 | Discharge Summary ---
Discharge Summary Date of Service February 18, 2017. Discharge Summary Admission Date: February 06, 2017 at 04:45 Discharge Date: February 18, 2017 [facility] Dis[facility] Principal Diagnosis: Left hip contusion Problems/Secondary Diagnoses: Anxiety disorder UTI Urinary retention DM type II, new diagnosis Immunizations: Have You Had Influenza Vaccine: N/A History of Tetanus Vaccine?: utd History of Pneumococcal: No History of Hepatitis B Vaccine: No Procedures: none Consultations: Psychiatry Medication Reconciliation New Medications: Baclofen (Baclofen) 20 Mg Tab 20 MG PO Q6H for 30 Days, #120 TAB Cholecalciferol (Vitamin D3) 1,000 Inter.unit Tab 4000 INTER.UNIT PO QAM for 30 Days, #30 TAB Ciprofloxacin (Ciprofloxacin HCl) 500 Mg Tab 500 MG PO BID for 5 Days, #10 TAB 0 Refills Diclofenac Sod (Voltaren) 100 Appln/100 Gm Gel 1 APPLN EXT QID for 30 Days, #120 DOSE Fluconazole (Fluconazole) 100 Mg Tab 100 MG PO QAM for 5 Days, #5 TAB 0 Refills Metformin HCl (Metformin HCl) 500 Mg Tab 500 MG PO BID, #60 TAB 3 Refills Tramadol HCl (Tramadol HCl) 50 Mg Tab 50 MG PO Q4H PRN for Pain for 3 Days, #15 TAB Continued Medications: Ascorbic Acid (Vitamin C) 500 Mg Tab 500 MG PO QAM Clonazepam (Klonopin) 1 Mg Tab 1 MG PO TID PRN for Anxiety, TAB Escitalopram Oxalate (Escitalopram Oxalate) 20 Mg Tab 20 MG PO QAM TAKE WITH 10MG = 30MG DAILY Escitalopram Oxalate (Lexapro) 10 Mg Tab 10 MG PO DAILY, TAB TAKE WITH 20MG = 30 MG DAILY Ferrous Sulfate (Iron) 325 Mg Tab 325 MG PO HS Hydrochlorothiazide (Hydrochlorothiazide) 25 Mg Tab 25 MG PO DAILY PRN for Swelling Levothyroxine Sodium (Levothyroxine Sodium) 100 Mcg Tab 100 MCG PO QAM Linaclotide (Linzess) 145 Mcg Cap 145 MCG PO QAM Lisinopril (Lisinopril) 10 Mg Tab 10 MG PO QPM Loratadine (Claritin) 10 Mg Tab 10 MG PO QAM Metoclopramide (Reglan) 10 Mg Tab 10 MG PO UD PRN for GASTROPARESIS, #6 TAB NAUSEA Metoprolol Tartrate (Lopressor) (Lopressor) 25 Mg Tab 25 MG PO BID, TAB Omeprazole (Prilosec) 40 Mg Cap 40 MG PO QAM Promethazine Hcl (Phenergan) 25 Mg Tab 25 MG PO Q6H PRN for Nausea, #10 TAB Simvastatin (Simvastatin) 40 Mg Tab 40 MG PO HS Discontinued Medications: Baclofen (Baclofen) 10 Mg Tab 10 MG PO Q8H PRN for Muscle Spasms for 30 Days, #90 TAB Ibuprofen (Advil) 200 Mg Tab 400 MG PO Q6H PRN for Pain, TAB Discharge Exam Patient feeling well today, [facility] Pain is only moderate , motivated to get to therapy. Review of Systems: Constitutional: + weakness, No chills, No fatigue, No fever, No problem reported, No sweats, No weight loss Eyes: No diplopia, No discharge, No eye pain, No problem reported, No redness, No worsening of vision ENT: No dental problems, No hearing loss, No nasal symptoms, No problem reported, No sore throat, No tinnitus, No trouble swallowing, No unusual epistaxis Respiratory: No cough, No dyspnea at rest, No dyspnea on exertion, No hemoptysis, No problem reported, No shortness of breath, No sputum, No wheezing Cardiovascular: No PND, No chest pain, No claudication, No edema, No orthopnea, No palpitations, No problem reported Abdomen: No GI bleeding, No constipation, No diarrhea, No nausea, No pain, No problem reported, No vomiting Musculoskeletal: + joint pain (left hip), No calf pain, No muscle pain, No problem reported, No swelling Genitourinary - Female: No dysuria, No urinary frequency, No urinary incontinence, No urinary urgency Neurologic: + weakness, No balance problems, No memory loss, No numbness/ tingling, No paralysis, No problem reported, No vertigo Psychiatric: + anxiety, + depression symptoms, No anhedonism, No insomnia, No problem reported, No substance abuse Endocrine: No excessive thirst, No excessive urination, No fatigue, No problem reported Hematologic / Lymphatic: No abnormal bleeding/bruising, No clotting problems , No night sweats, No problem reported, No swollen lymph nodes Integumentary: No bleeding, No color change, No itch, No new/changing skin lesions, No problem reported, No rash Physical Exam: General Appearance: no apparent distress, + obese Eyes: normal inspection, EOMI, sclerae normal ENT: normal ENT inspection, hearing grossly normal, pharynx normal Neck: supple, no adenopathy, no JVD, trachea midline Respiratory/Chest: chest non-tender, lungs clear, normal breath sounds, no respiratory distress, no accessory muscle use Cardiovascular: regular rate, rhythm, no edema, no gallop, no JVD, no murmur , normal peripheral pulses Abdomen / GI: normal bowel sounds, non tender, soft, no organomegaly Extremities: normal inspection, no calf tenderness, normal capillary refill , no pedal edema, pelvis stable, + pertinent finding (left hip tender to palpation) Neurologic/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: 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, no motor/sensory deficits , alert, normal reflexes, oriented x 3, + pertinent finding (anxious mood) Skin: normal color, warm/dry, no rash Hospital Course 51-year-old white female admitted on Feb 06 2017 because severe left hip pain, no clear cause on imaging, multiple psychosocial issues that lead to a prolonged hospitalization Acute on chronic L hip/leg pain-likely secondary to reportedly mechanical fall fall in addition to psychosomatic/anxiety Believe multiple issues include psychosomatic conditions and family dynamic problems X-rays on admission for the hip sacrum left femoral and left knee, No fracture or dislocation within the pelvis, hips, sacrum, or left femur per report Lumbar spine MRI was done on 02/14/2017 which shows no acute conditions, but do have some chronic disc bulging: pain better controlled currently, more motivated with therapy she knows that what she needs is rehab at this point, no pressing medical issues she says she is [facility], accepted for d/c on 02/18 Continue current regimen of Voltaren gel QID, baclofen 20 mg QID and ultram History of depression and anxiety PTSD, was seen by psychiatry outside psych Dr. Ramos, In-house psychiatry service saw patient, have recommended a trial of Cymbalta for pain, anxiety and depression which the patient declines. Psychiatry talked to Dr. Ramos , they have start tapering off benzo as outpatient , for now ,will continue Klonopin 1 mg by mouth twice a day when necessary Continue Lexapro 30 mg daily Psych have also recommended that the patient get back into therapy, perhaps EMDR, to help reframe her traumatic experiences which she also declines Constipation, resolved, will continue Miralax Episode of CP-resolved -EKG NSR -trop neg -D dimer WNL Urinary retention and UTI, stable -Urine culture growing gram - bacilli and Klebsiella -Start Cipro 500 mg po BID. 4/7 days whitlock pulled on 02/18, voiding well, can follow with urology as outpatient in the future if she has other issues DM type II, elevated HbA1c at 7.4 , and Elevated glucose Denies Hx of diabetes - HbA1C 7.4 - Insulin sliding scale with BGS ac/hs - will need lifestyle changes-->ADA diet - started on Metformin 500mg BID, can titrate up to 1000mg BID as outpatient -will need glucometer upon d/c -f/u PCP for a recheck in 2 weeks Hypothyroidism - Levothyroxine 100mcg daily VTE Prophylaxis - Lovenox 40 mg SQ daily Disposition: plan for [facility] today CODE STATUS -LEVEL I FULL CODE Total Time Spent: Less than 30 minutes This includes examination of the patient, discharge planning, medication reconciliation, and communication with other providers. Discharge Instructions Please refer to the electronic Patient Visit Report (Discharge Instructions) for additional information. Follow-Up [facility] this week Marcie Hernández one week after d/c from rehab Additional Copies To Marcie Hernández; [facility]
[2017-02-20] MEDS ORDERED: CIPROFLOXACIN 500 MG TAB PO SCH (21:00)
== END 2017-02-18 13:32 ==
LOC: ENRESERVTM → ENRESERVDT → EDBD → C.EDB 00:01 → C.MSW 04:45
PROVIDERS: ADMIT Hospitalist; ATTEND Internal Medicine
DX: S70.02XA Contusion of left hip, initial encounter (principal); W13.9XXA Fall from, out of or through building, not otherwise specified, initial encounter; F41.9 Anxiety disorder, unspecified; N39.0 Urinary tract infection, site not specified; R33.9 Retention of urine, unspecified; E03.9 Hypothyroidism, unspecified; E11.9 Type 2 diabetes mellitus without complications; K21.9 Gastro-esophageal reflux disease without esophagitis; E78.5 Hyperlipidemia, unspecified; I10 Essential (primary) hypertension; M19.90 Unspecified osteoarthritis, unspecified site; Z79.899 Other long term (current) drug therapy; Z88.2 Allergy status to sulfonamides; Z88.1 Allergy status to other antibiotic agents; Z83.3 Family history of diabetes mellitus; Z82.49 Family history of ischemic heart disease and other diseases of the circulatory system; Z84.1 Family history of disorders of kidney and ureter; Z82.0 Family history of epilepsy and other diseases of the nervous system

== ENCOUNTER → 2017-03-26 | Outpatient (CLI) | payer OTHER ==
[~2017-03-26] MED LIST changes: +CPR500 PO; -CYM30 PO; +DFL100 PO; +ESCI1TAB9 PO; +GLC500 PO; -IBUP-1277 PO; +LEVO125T72 PO; -LRS10 PO; +LRS20 PO; -MELO7.5T5 PO; +MRLP17X PO; -NRN300 PO; -OXYC7.5T62 PO; -PROM25TA9 PO; +ULT50X PO; +VLTG EXT; +VTMD1000 PO
--- NOTE | 2017-03-26 15:52 | MAMMOGRAPHY REPORT ---
BILATERAL DIGITAL SCREENING MAMMOGRAM TOMOSYNTHESIS WITH CAD: 03/26/2017 CLINICAL HISTORY: Routine screening. Patient has no complaints. TECHNIQUE: Breast tomosynthesis in addition to standard 2D mammography was performed. Current study was also evaluated with a Computer Aided Detection (CAD) system. COMPARISON: Comparison is made to exams dated: 11/17/2012 mammogram and 11/13/2011 mammogram - [facility]. BREAST COMPOSITION: There are scattered areas of fibroglandular density in both breasts. FINDINGS: No suspicious masses, calcifications, or areas of architectural distortion are noted in ei ther breast. There has been no significant interval change compared to prior exams. IMPRESSION: ACR BI-RADS CATEGORY 1: NEGATIVE There is no mammographic evidence of malignancy. A 1 year screening mammogram is recommended. The pa tient will receive written notification of the results. Approximately 10% of breast cancers are not detected with mammography. A negative mammographic report should not delay biopsy if a clinically suggestive mass is present. Janay Galvin M.D. ah/:03/26/2017 12:40:46 [place]: Jackeline SEPULVEDA(R)(M), [facility] letter sent: Normal 1/2 BI-RADS Code: ACR BI-RADS Category 1: Negative
== END | disposition home or self-care (01) ==
LOC: C.MAMM 11:46
PROVIDERS: ATTEND Nurse Practitioner Family
DX: Z12.31 Encounter for screening mammogram for malignant neoplasm of breast (principal)

== ENCOUNTER 2017-06-15 13:44 | Emergency (ER) | payer OTHER ==
[~2017-06-15] VITALS: Ht 154.9 cm; Wt 100.0 kg
[~2017-06-15 13:44] MED LIST changes: -LEVO125T72 PO; -MRLP17X PO
[2017-06-15 13:51] VITALS: TEMP 37; Ht 154.9 cm; Wt 100.0 kg
[2017-06-15] MEDS ORDERED: SODIUM CHLORIDE 0.9% 1000ML 1,000 ML IV STA (14:05)
[2017-06-15] MEDS ORDERED: PROMETHAZINE HCL INJ 12.5 MG in SODIUM CHLORIDE 0.9% 50ML 50 ML IV STA ×2 (14:05→16:50)
[2017-06-15 14:23] LABS: BASO % 0.2 %; BASO ABS # 0.02 K/uL (0-0.2); COMPLETE YES; EOS % 0.6 %; HEMATOCRIT 44.6 % (37-47); IG% 0.3 %; LYMPH % 10.2 %; LYMPH ABS # 1.21 K/uL (1.2-3.4); MEAN CORPUSCULAR HGB CONC 35.2 g/dl (32-36); MEAN PLATELET VOLUME 9.7 fL (7.4-10.4); MONO % 6.2 %; NEUT % 82.5 %; PLATELET COUNT 265 K/uL (130-400); RED BLOOD COUNT 5.07 M/uL (4.2-5.4); WHITE BLOOD COUNT 11.84 K/uL (4.8-10.8)
[2017-06-15 14:34] LABS: PARTIAL THROMBOPLASTIN RATIO 1.1; PROTHROMBIN TIME (PATIENT) 10.7 SECONDS (9.0-12.0)
[2017-06-15 14:37] LABS: URINE APPEARANCE CLEAR (CLEAR); URINE BILIRUBIN NEG (NEG); URINE COLOR YELLOW; URINE NITRITE NEG (NEG); URINE SPECIFIC GRAVITY 1.021 (1.000-1.030); UROBILINOGEN NEG (NEG)
[2017-06-15 14:42] LABS: MANUAL MICROSCOPIC REQUIRED? NO; REVIEW REQ? NO
[2017-06-15 14:44] LABS: ALT/SGPT 54 U/L (12-78); AMYLASE 35 U/L (25-115); AST/SGOT 40 U/L (15-37); BLOOD UREA NITROGEN 13 mg/dl (7-18); BUN/CREATININE RATIO 13.2 (10-20); CALCIUM 9.6 mg/dl (8.5-10.1); CARBON DIOXIDE 25 mmol/L (21-32); CHLORIDE 102 mmol/L (98-107); GLUCOSE 193 mg/dl (70-99); POTASSIUM 4.1 mmol/L (3.5-5.1); SODIUM 137 mmol/L (136-145)
[2017-06-15 14:50] LABS: ALKALINE PHOSPHATASE 89 U/L (45-117)
[2017-06-15 14:52] LABS: PREG INTERNAL NEGATIVE QC NEG CLEAR BACKGROUND; PREG INTERNAL POSITIVE QC POS CONTROL LINE
[2017-06-15] MEDS ORDERED: MRLP17X PO (14:53)
[2017-06-15] MEDS ORDERED: LEVO125T72 PO (14:53)
--- NOTE | 2017-06-15 15:11 | EMERGENCY ROOM VISIT NOTE ---
History Report prepared by Rosa Elena: Lashanda Harvey Under the Supervision of: Rufino GalvanO. First contact with patient: 14:01 Chief Complaint: VOMITING Stated Complaint: V, CHEST PAINS Nursing Triage Summary: triage note: pt reports abd pain, nausea, vomitting, diarrhea since yesterday. History of Present Illness The patient is a 52 year old female who presents to the Emergency Room with complaints of constant vomiting starting last night. The patient states that she is concerned that she may be . She states that last time she had sex was almost a month ago. She reports that she is experiencing similar symptoms to her past 5 pregnancies. She reports that her boobs are bigger, her nipples are extended, she has dizziness, has a headache, and is nauseated all the time. She reports that she is nauseated whether she eats or not, but vomits no matter what she eats. She states that the nausea is worse with standing. The patient complains of chest pain and abdominal pain from vomiting. She complains of excessive hiccups and diarrhea. The patient denies taking a test and a fever. She notes that she was told by her [employer] that she went through menopause, but states that after her sister , she got her period for a week. She states that she has been having an egg white vaginal discharge as well. She notes a history of vertigo in the past, but denies it feeling like this. Source of History: patient Onset: last night Position: other (global) Quality: other (global) Timing: constant Modifying Factors (Worsening): other (standing) Associated Symptoms: + headache, + chest pain, + nausea, + abdominal pain, + diarrhea, No fevers Note: The patient complains that her boobs are bigger, her nipples are extended, she has dizziness, an egg white vaginal discharge, and excessive hiccups. Review of Systems See HPI for pertinent positives & negatives. A total of 10 systems reviewed and were otherwise negative. 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 (18) OSTEOARTHROS NOS-UNSPEC (19) Panic disorder with agoraphobia (20) PTSD (post-traumatic stress disorder) (21) Puncture wound of left foot (22) Puncture wound of left foot (23) Thumb fracture Surgical Problems: (1) Hx of section Family History Diabetes mellitus FH: heart disease FHx: gallbladder disease Hypertension Kidney disease Kidney stones Seizures Social History Smoking Status: Never Smoker Alcohol Use: occasionally Drug Use: none Marital Status: Housing Status: lives with family Occupation Status: unemployed Current/Historical Medications Scheduled Ascorbic Acid (Vitamin C), 500 MG PO QAM Cholecalciferol (Vitamin D3), 4,000 INTER.UNIT PO QAM Diclofenac Sod (Voltaren), 1 APPLN EXT QID Escitalopram Oxalate (Escitalopram Oxalate), 20 MG PO QAM Escitalopram Oxalate (Lexapro), 10 MG PO DAILY Ferrous Sulfate (Iron), 325 MG PO HS Levothyroxine Sodium (Synthroid), 125 MCG PO DAILY Lisinopril (Lisinopril), 10 MG PO QPM Loratadine (Claritin), 10 MG PO QAM Metformin HCl (Metformin HCl), 500 MG PO BID Metoprolol Tartrate (Lopressor) (Lopressor), 25 MG PO BID Omeprazole (Prilosec), 40 MG PO QAM Polyethylene (Miralax), 17 GM PO DAILY Simvastatin (Simvastatin), 40 MG PO HS Scheduled PRN Clonazepam (Klonopin), 1 MG PO TID PRN for Anxiety Hydrochlorothiazide (Hydrochlorothiazide), 25 MG PO DAILY PRN for Swelling Metoclopramide (Reglan), 10 MG PO UD PRN for GASTROPARESIS Allergies Coded Allergies: Methylprednisolone (Verified Allergy, Mild, RASH, 06/15/17) Ondansetron (Verified Allergy, Mild, Cardiac symptoms , 06/15/17) Pt states d/t cardiac issue, prolonged QT interval, she is unable to take zofran- requests to be put on her allergy list Erythromycin (Verified Allergy, Unknown, RASH, 06/15/17) Sulfa Antibiotics (Verified Allergy, Unknown, RASH, 06/15/17) Hydromorphone (Verified Adverse Reaction, Intermediate, confusion, 06/15/17 ) Physical Exam Vital Signs Date Time Temp Pulse Resp B/P (MAP) Pulse Ox O2 Delivery O2 Flow Rate FiO2 06/15/17 17:08 72 20 104/43 97 Room Air 06/15/17 15:50 75 20 106/54 96 Room Air 06/15/17 14:38 87 06/15/17 13:51 37.0 86 22 137/88 97 Room Air Physical Exam GENERAL: Patient is awake, alert, and very anxious appearing. EYES: The conjunctivae are clear. The pupils are round and reactive. EARS, NOSE, MOUTH AND THROAT: The nose is without any evidence of any deformity. Mucous membranes are moist tongue is midline NECK: The neck is nontender and supple. RESPIRATORY: Normal respiratory effort is noted there is no evidence of wheezing rhonchi or rales CARDIOVASCULAR: Regular rate and rhythm noted there no murmurs rubs or gallops normal S1 normal S2 GASTROINTESTINAL: Mildly distended, but soft. No specific tenderness, guarding, or rigidity. MUSCULOSKELETAL/EXTREMITIES: There is no evidence of gross deformity full range of motion is noted in the hips and shoulders SKIN: There is no obvious evidence of any rash. There are no petechiae, pallor or cyanosis noted. NEUROLOGIC: Patient is awake alert and oriented x3 strength is symmetric patellar reflexes are 2+ bilaterally Medical Decision & Procedures ER Provider Diagnostic Interpretation: Radiology results as stated below per my review and radiologist interpretation: ABD/PELVIS NO IV OR ORAL CONT CT DOSE: 1380.64 mGy.cm HISTORY: Nausea. Vomiting. vomiting TECHNIQUE: Multiaxial CT images of the abdomen and pelvis were performed without contrast. A dose lowering technique was utilized adhering to the principles of ALARA. COMPARISON STUDY: 05/11/2016 FINDINGS: The lung bases are clear. The unenhanced liver, spleen, gallbladder, pancreas, kidneys, and adrenal glands are within normal limits. No bowel wall thickening or obstruction. The pelvic organs are unremarkable. No suspicious lytic or blastic osseous lesions. Mild fatty replacement of liver. Nonobstructive bowel pattern. Normal appendix IMPRESSION: 1. Fatty infiltration of liver. 2. Otherwise negative study abdomen and pelvis. 3. No change compared to the prior exam. The above report was generated using voice recognition software. It may contain grammatical, syntax or spelling errors. Electronically signed by: Ata Garcia M.D. 06/15/2017 4:30 PM Dictated Date/Time: 06/15/2017 4:26 PM Laboratory Results 06/15/17 14:10 Red Blood Count 5.07, Mean Corpuscular Volume 88.0, Mean Corpuscular Hemoglobin 31.0, Mean Corpuscular Hemoglobin Concent 35.2, Mean Platelet Volume 9.7, Neutrophils (%) (Auto) 82.5, Lymphocytes (%) (Auto) 10.2, Monocytes (%) (Auto) 6.2, Eosinophils (%) (Auto) 0.6, Basophils (%) (Auto) 0.2, Neutrophils # (Auto) 9.77, Lymphocytes # (Auto) 1.21, Monocytes # (Auto) 0.73, Eosinophils # (Auto) 0.07, Basophils # (Auto) 0.02 06/15/17 14:10 Test 06/15/17 14:10 White Blood Count 11.84 K/uL (4.8-10.8) Red Blood Count 5.07 M/uL (4.2-5.4) Hemoglobin 15.7 g/dL (12.0-16.0) Hematocrit 44.6 % (37-47) Mean Corpuscular Volume 88.0 fL (80-100) Mean Corpuscular Hemoglobin 31.0 pg (25-34) Mean Corpuscular Hemoglobin Concent 35.2 g/dl (32-36) Platelet Count 265 K/uL (130-400) Mean Platelet Volume 9.7 fL (7.4-10.4) Neutrophils (%) (Auto) 82.5 % Lymphocytes (%) (Auto) 10.2 % Monocytes (%) (Auto) 6.2 % Eosinophils (%) (Auto) 0.6 % Basophils (%) (Auto) 0.2 % Neutrophils # (Auto) 9.77 K/uL (1.4-6.5) Lymphocytes # (Auto) 1.21 K/uL (1.2-3.4) Monocytes # (Auto) 0.73 K/uL (0.11-0.59) Eosinophils # (Auto) 0.07 K/uL (0-0.5) Basophils # (Auto) 0.02 K/uL (0-0.2) RDW Standard Deviation 42.5 fL (36.4-46.3) RDW Coefficient of Variation 13.2 % (11.5-14.5) Immature Granulocyte % (Auto) 0.3 % Immature Granulocyte # (Auto) 0.04 K/uL (0.00-0.02) Prothrombin Time 10.7 SECONDS (9.0-12.0) Prothromb Time International Ratio 1.0 (0.9-1.1) Activated Partial Thromboplast Time 27.8 SECONDS (21.0-31.0) Partial Thromboplastin Ratio 1.1 Urine Color YELLOW Urine Appearance CLEAR (CLEAR) Urine pH 5.0 (4.5-7.5) Urine Specific [place] 1.021 (1.000-1.030) Urine Protein NEG (NEG) Urine Glucose (UA) NEG (NEG) Urine Ketones TRACE (NEG) Urine Occult Blood NEG (NEG) Urine Nitrite NEG (NEG) Urine Bilirubin NEG (NEG) Urine Urobilinogen NEG (NEG) Urine Leukocyte Esterase NEG (NEG) Anion Gap 10.0 mmol/L (3-11) Est Creatinine Clear Calc Drug Dose 72.1 ml/min Estimated GFR () 75.5 Estimated GFR (Non- 65.2 BUN/Creatinine Ratio 13.2 (10-20) Calcium Level 9.6 mg/dl (8.5-10.1) Total Bilirubin 0.9 mg/dl (0.2-1) Direct Bilirubin 0.2 mg/dl (0-0.2) Aspartate Amino Transf (AST/SGOT) 40 U/L (15-37) Alanine Aminotransferase (ALT/SGPT) 54 U/L (12-78) Alkaline Phosphatase 89 U/L (45-117) Total Creatine Kinase 79 U/L (26-192) Creatine Kinase MB < 0.5 ng/ml (0.5-3.6) Creatine Kinase MB Ratio (0-3.0) Troponin I < 0.015 ng/ml (0-0.045) Total Protein 8.6 gm/dl (6.4-8.2) Albumin 4.4 gm/dl (3.4-5.0) Amylase Level 35 U/L (25-115) Lipase 196 U/L (73-393) Human Chorionic Gonadotropin, Qual NEG (NEG) Laboratory results per my review. Medications Administered Medications (Trade) Dose Ordered Sig/Prachi Route Start Time Stop Time Status Last Admin Dose Admin Sodium Chloride 1,000 ml @ 999 mls/hr Q1H1M STAT IV 06/15/17 14:05 06/15/17 15:05 DC 06/15/17 14:35 999 MLS/HR Promethazine HCl 12.5 mg/Sodium Chloride 50.5 ml @ 204 mls/hr NOW STAT IV 06/15/17 14:05 06/15/17 14:19 DC 06/15/17 14:35 204 MLS/HR Promethazine HCl 12.5 mg/Sodium Chloride 50.5 ml @ 204 mls/hr NOW STAT IV 06/15/17 16:50 06/15/17 17:04 DC 06/15/17 17:06 204 MLS/HR Promethazine HCl (Phenergan 25MG Home Pack) 1 homepack UD ONCE PO 06/15/17 17:00 06/15/17 17:01 DC 06/15/17 17:25 1 HOMEPACK ECG Indication: nausea Rate (beats per minute): 87 Rhythm: normal sinus Findings: no ectopy, other (no acute ST segment changes, QTc prolongation noted ) Comparison ECG Date: 02/17/2017 Change: no significant change ED Course 1404: The patient was evaluated in room B11B. A complete history and physical examination were performed. 1405: Ordered Promethazine HCl 2.5 mg/Sodium Chloride 50.5 ml @ 204 mls/hr IV, NSS 1000 ml @ 999 mls/hr IV. 1532: I reevaluated the patient and she was doing well. 1650: Ordered Promethazine HCl 12.5 mg/ Sodium Chloride 50.5 ml @ 204 mls/hr IV. 1700: Ordered Promethazine HCl 1 homepack PO. 1736: Upon reevaluation, the patient is resting comfortably. I discussed the results and treatment plan with her. She verbalized agreement of the treatment plan. The patient was discharged home. Medical Decision Prior records/ancillary studies reviewed. Triage Nursing notes reviewed. Differential diagnosis: Etiologies such as appendicitis, diverticulitis, PUD, biliary pathology, UTI, pancreatitis, obstruction, mesenteric ischemia, aortic pathology, infections, inflammatory bowel disease, renal colic, as well as others were entertained. The patient is a 52-year-old female who presented to the emergency department for an evaluation of diffuse abdominal pain and nausea. Initially the patient was concerned that she may be . The patient had a negative test. She was treated with IV fluids and IV antiemetics. She was reevaluated multiple times. She does have a history of gastroparesis. I discussed the patient's laboratory and radiographic studies with her. She was encouraged to continue all medications as prescribed and rest. She was also encouraged to drink plenty clear liquids including Pedialyte and Gatorade. She was also encouraged to follow-up with her family doctor this week for reevaluation but return to the emergency department immediately if symptoms change worsen or the need arises. Impression Primary Impression: Nausea Additional Impressions: Dehydration Gastroparesis Abdominal pain Scribe Attestation The scribe's documentation has been prepared under my direction and personally reviewed by me in its entirety. I confirm that the note above accurately reflects all work, treatment, procedures, and medical decision making performed by me. Departure Information Dispostion Home / Self-Care Referrals No Doctor, Assigned (PCP) Forms HOME CARE DOCUMENTATION FORM, IMPORTANT VISIT INFORMATION Patient Instructions My [facility] Additional Instructions Call your family in the morning to schedule a follow-up appointment. Continue all medications as prescribed. Continue to drink plenty of liquids including Pedialyte and Gatorade. Problem Qualifiers Additional Impressions: Abdominal pain Abdominal location: generalized Qualified Codes: R10.84 - Generalized abdominal pain
--- NOTE | 2017-06-15 16:31 | DIAGNOSTIC IMAGING REPORT ---
ABD/PELVIS NO IV OR ORAL CONT CT DOSE: 1380.64 mGy.cm HISTORY: Nausea. Vomiting. vomiting TECHNIQUE: Multiaxial CT images of the abdomen and pelvis were performed without contrast. A dose lowering technique was utilized adhering to the principles of ALARA. COMPARISON STUDY: 05/11/2016 FINDINGS: The lung bases are clear. The unenhanced liver, spleen, gallbladder, pancreas, kidneys, and adrenal glands are within normal limits. No bowel wall thickening or obstruction. The pelvic organs are unremarkable. No suspicious lytic or blastic osseous lesions. Mild fatty replacement of liver. Nonobstructive bowel pattern. Normal appendix IMPRESSION: 1. Fatty infiltration of liver. 2. Otherwise negative study abdomen and pelvis. 3. No change compared to the prior exam. The above report was generated using voice recognition software. It may contain grammatical, syntax or spelling errors. Electronically signed by: Ata Garcia M.D. 06/15/2017 4:30 PM Dictated Date/Time: 06/15/2017 4:26 PM
[2017-06-15] MEDS ORDERED: PHENERGAN 25MG HOMEPACK PO ONE (17:00)
[2017-06-15 17:08] VITALS: BP 104/43; PULSE 72; O2SAT 97
== END 2017-06-15 17:30 | disposition home or self-care (01) ==
LOC: C.EDB 13:52
DX: E86.0 Dehydration (principal); K31.84 Gastroparesis; R11.2 Nausea with vomiting, unspecified; R10.84 Generalized abdominal pain; K76.0 Fatty (change of) liver, not elsewhere classified; Z79.899 Other long term (current) drug therapy; E11.9 Type 2 diabetes mellitus without complications; I10 Essential (primary) hypertension; E03.9 Hypothyroidism, unspecified; R07.9 Chest pain, unspecified

== ENCOUNTER → 2017-06-20 | Outpatient (CLI) | payer OTHER ==
[~2017-06-20] MED LIST changes: -CPR500 PO; -DFL100 PO; -LEVO100T7 PO; +LEVO125T72 PO; -LINA1CAP PO; -LRS20 PO; +MRLP17X PO; -ULT50X PO
--- NOTE | 2017-06-20 08:53 | DIAGNOSTIC IMAGING REPORT ---
EXAMINATION: PELVIC ULTRASOUND (transabdominal and endovaginal scanning) CLINICAL HISTORY: POST MENOPAUSAL BLEEDING COMPARISON STUDY: 02/04/2016 FINDINGS: The uterus measured 8.4 x 4.2 x 4.9 cm. The endometrial stripe measured 2 mm. The right ovary measured 22 x 13 x 18 mm. The left ovary was nonvisualized There was no evidence of pathologic free pelvic fluid. IMPRESSION: Nonvisualization of the left ovary. Otherwise normal pelvic ultrasound. Normal thickness endometrial stripe of 2 mm. Electronically signed by: Tim Ulrich M.D. 06/20/2017 8:52 AM Dictated Date/Time: 06/20/2017 8:50 AM
== END | disposition home or self-care (01) ==
LOC: C.ULTR 08:06
PROVIDERS: ATTEND Student in an Organized Health Care Education/Training Program
DX: N95.0 Postmenopausal bleeding (principal)

== ENCOUNTER 2017-09-01 19:45 | Emergency (ER) | payer OTHER ==
[~2017-09-01] VITALS: Ht 154.9 cm; Wt 112.9 kg
[~2017-09-01 19:45] MED LIST changes: -LORA10TA5 PO; +LORA10TA6 PO
[2017-09-01 19:52] VITALS: TEMP 36.8; Ht 154.9 cm; Wt 112.9 kg
[2017-09-01 19:56] VITALS: O2SAT 95
[2017-09-01] MEDS ORDERED: COUGH DROP (SUGAR FREE) LOZ 24 LOZ/1 BOX PO STA (20:10)
[2017-09-01] MEDS ORDERED: DEXAMETHASONE INJ 10 MG in SYRINGE 0 ML IV STA (20:10)
[2017-09-01] MEDS ORDERED: ACETAMINOPHEN 500 MG TAB PO STA (20:10)
[2017-09-01] MEDS ORDERED: BENZONATATE 100MG CAP PO ONE (20:15)
[2017-09-01] MEDS ORDERED: DEXAMETHASONE **PF** INJ 10 MG/ML VIAL ONE (20:23)
--- NOTE | 2017-09-01 20:26 | EMERGENCY ROOM VISIT NOTE ---
History Report prepared by Rosa Elena: Chloé Benitez Under the Supervision of: Dr. Salvador Tapia M.D. First contact with patient: 19:51 Chief Complaint: COUGH Stated Complaint: FLU LIKE SX History of Present Illness The patient is a 52 year old white female with a past medical history of gastroparesis, long QT, high cholesterol, high blood pressure, diabetes who presents to the ED with a cc of persistent flu symptoms beginning 1 week ago. She has been taking Nyquil and Dayquil at home to no significant relief. Positive cough producing yellow/green sputum, chest pain, headache, ear pain, sore throat, nausea, dizziness with standing. Negative urinary symptoms. Her last BM was a couple days ago. She did not receive her flu shot this year. She denies any recent travel or antibiotics. She notes her family has been sick recently. Source of History: patient Onset: 1 week ago Position: other (global) Quality: other (flu symptoms) Timing: other (persistent) Associated Symptoms: + headache, + sorethroat, + cough, + chest pain, + nausea, No urinary symptoms Note: Pt reports ear pain, dizziness with standing. Review of Systems See HPI for pertinent positives and negatives. A total of ten systems were reviewed and were otherwise negative. 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 (18) OSTEOARTHROS NOS-UNSPEC (19) Panic disorder with agoraphobia (20) PTSD (post-traumatic stress disorder) (21) Puncture wound of left foot (22) Puncture wound of left foot (23) Thumb fracture Surgical Problems: (1) Hx of section Family History Diabetes mellitus FH: heart disease FHx: gallbladder disease Hypertension Kidney disease Kidney stones Seizures Social History Smoking Status: Never Smoker Alcohol Use: occasionally Drug Use: none Marital Status: Housing Status: lives with family Occupation Status: unemployed Current/Historical Medications Scheduled Ascorbic Acid (Vitamin C), 500 MG PO QAM Cholecalciferol (Vitamin D3), 4,000 UNITS PO DAILY Diclofenac Sod (Voltaren), 1 APPLN EXT QID Escitalopram Oxalate (Escitalopram Oxalate), 20 MG PO QAM Escitalopram Oxalate (Lexapro), 10 MG PO DAILY Ferrous Sulfate (Iron), 325 MG PO HS Levothyroxine Sodium (Levothyroxine Sodium), 112 MCG PO DAILY Lisinopril (Lisinopril), 10 MG PO QPM Loratadine (Claritin), 10 MG PO QAM Metformin Hcl (Glucophage), 500 MG PO BID Metoprolol Tartrate (Lopressor) (Lopressor), 25 MG PO BID Omeprazole (Prilosec), 40 MG PO QAM Polyethylene (Miralax), 17 GM PO DAILY Simvastatin (Simvastatin), 40 MG PO HS Scheduled PRN Clonazepam (Klonopin), 1 MG PO TID PRN for Anxiety Hydrochlorothiazide (Hydrochlorothiazide), 25 MG PO DAILY PRN for Swelling Hydrocodone W/ Homatropine (Hycodan 5/1.5MG 5 Ml), 5 ML PO Q6H PRN for Cough Metoclopramide (Reglan), 10 MG PO UD PRN for GASTROPARESIS Allergies Coded Allergies: Methylprednisolone (Verified Allergy, Mild, RASH, 06/15/17) Ondansetron (Verified Allergy, Mild, Cardiac symptoms , 06/15/17) Pt states d/t cardiac issue, prolonged QT interval, she is unable to take zofran- requests to be put on her allergy list Erythromycin (Verified Allergy, Unknown, RASH, 06/15/17) Sulfa Antibiotics (Verified Allergy, Unknown, RASH, 06/15/17) Hydromorphone (Verified Adverse Reaction, Intermediate, confusion, 06/15/17 ) Physical Exam Vital Signs Date Time Temp Pulse Resp B/P (MAP) Pulse Ox O2 Delivery O2 Flow Rate FiO2 09/01/17 22:25 89 20 134/88 93 09/01/17 21:40 92 16 129/76 96 Room Air 09/01/17 20:36 100 20 158/117 93 Room Air 09/01/17 20:36 101 09/01/17 19:56 95 Room Air 09/01/17 19:52 36.8 105 18 158/117 95 Room Air 09/01/17 19:52 95 Room Air Physical Exam GENERAL: Awake, alert, well-appearing, NAD HENT: Normocephalic, atraumatic. Posterior pharynx clear, no swelling or exudate. TMs normal. EYES: Normal conjunctiva. Sclera non-icteric. NECK: Supple. No nuchal rigidity. FROM. RESPIRATORY: CTAB, no rhonchi, wheezing, crackles CARDIAC: Tachycardic and regular, no MRG ABDOMEN: Soft, NTND, BS+ MSK: No chest wall TTP, no LE edema. No CVA TTP. NEURO: GCS 15, CN 2-12 intact, moves all 4s on command SKIN: No rash or jaundice noted. Medical Decision & Procedures ER Provider Diagnostic Interpretation: Xray results as stated below per my and radiologist interpretation: SINGLE VIEW CHEST CLINICAL HISTORY: Dyspnea. FINDINGS: An AP, portable, upright chest radiograph is compared to study dated 02/10/2017. The examination is degraded by portable technique, large body habitus, and patient rotation. The cardiomediastinal silhouette is unremarkable. The lungs and pleural spaces are clear. No pneumothorax is seen. The bony thorax is grossly intact. IMPRESSION: No active disease in the chest. Electronically signed by: James Phelps M.D. 09/01/2017 8:34 PM Dictated Date/Time: 09/01/2017 8:33 PM Laboratory Results 09/01/17 20:20 Red Blood Count 4.86, Mean Corpuscular Volume 88.5, Mean Corpuscular Hemoglobin 31.3, Mean Corpuscular Hemoglobin Concent 35.3, Mean Platelet Volume 10.0, Neutrophils (%) (Auto) 52.3, Lymphocytes (%) (Auto) 37.4, Monocytes (%) (Auto) 7.9, Eosinophils (%) (Auto) 1.8, Basophils (%) (Auto) 0.3, Neutrophils # (Auto) 4.14, Lymphocytes # (Auto) 2.95, Monocytes # (Auto) 0.62, Eosinophils # (Auto) 0.14, Basophils # (Auto) 0.02 09/01/17 20:20 Test 09/01/17 20:20 09/01/17 20:25 White Blood Count 7.89 K/uL (4.8-10.8) Red Blood Count 4.86 M/uL (4.2-5.4) Hemoglobin 15.2 g/dL (12.0-16.0) Hematocrit 43.0 % (37-47) Mean Corpuscular Volume 88.5 fL (80-100) Mean Corpuscular Hemoglobin 31.3 pg (25-34) Mean Corpuscular Hemoglobin Concent 35.3 g/dl (32-36) Platelet Count 265 K/uL (130-400) Mean Platelet Volume 10.0 fL (7.4-10.4) Neutrophils (%) (Auto) 52.3 % Lymphocytes (%) (Auto) 37.4 % Monocytes (%) (Auto) 7.9 % Eosinophils (%) (Auto) 1.8 % Basophils (%) (Auto) 0.3 % Neutrophils # (Auto) 4.14 K/uL (1.4-6.5) Lymphocytes # (Auto) 2.95 K/uL (1.2-3.4) Monocytes # (Auto) 0.62 K/uL (0.11-0.59) Eosinophils # (Auto) 0.14 K/uL (0-0.5) Basophils # (Auto) 0.02 K/uL (0-0.2) RDW Standard Deviation 42.3 fL (36.4-46.3) RDW Coefficient of Variation 13.0 % (11.5-14.5) Immature Granulocyte % (Auto) 0.3 % Immature Granulocyte # (Auto) 0.02 K/uL (0.00-0.02) Anion Gap 7.0 mmol/L (3-11) Est Creatinine Clear Calc Drug Dose 71.8 ml/min Estimated GFR () 68.8 Estimated GFR (Non- 59.4 BUN/Creatinine Ratio 10.3 (10-20) Calcium Level 9.9 mg/dl (8.5-10.1) Total Bilirubin 0.6 mg/dl (0.2-1) Aspartate Amino Transf (AST/SGOT) 37 U/L (15-37) Alanine Aminotransferase (ALT/SGPT) 52 U/L (12-78) Alkaline Phosphatase 125 U/L (45-117) Total Protein 8.7 gm/dl (6.4-8.2) Albumin 4.1 gm/dl (3.4-5.0) Globulin 4.6 gm/dl (2.5-4.0) Albumin/Globulin Ratio 0.9 (0.9-2) Influenza Type A Antigen Neg for Influ A (NEG) Influenza Type B Antigen Neg for Influ B (NEG) Laboratory results reviewed by me Medications Administered Medications (Trade) Dose Ordered Sig/Prachi Route Start Time Stop Time Status Last Admin Dose Admin Acetaminophen (Tylenol Tab) 1,000 mg NOW STAT PO 09/01/17 20:10 09/01/17 20:13 DC 09/01/17 20:31 1,000 MG Menthol (Nice Emeli) 1 emeli NOW STAT PO 09/01/17 20:10 09/01/17 20:13 DC 09/01/17 20:10 1 EMELI Benzonatate (Tessalon Perles Cap) 100 mg NOW ONCE PO 09/01/17 20:15 09/01/17 20:16 DC 09/01/17 20:31 100 MG Dexamethasone Sodium Phosphate (Dexamethasone Inj Pf) 10 mg STK-MED ONCE .ROUTE 09/01/17 20:23 09/01/17 20:24 DC 09/01/17 20:32 10 MG Sodium Chloride 500 ml @ 999 mls/hr Q31M STAT IV 09/01/17 21:18 09/01/17 21:48 DC 09/01/17 21:18 999 MLS/HR ECG Indication: chest pain Rate (beats per minute): 103 Rhythm: sinus tachycardia Findings: prolonged QT, other (right axis deviation, no other STS changes or TWI) Comparison ECG Date: 15-Jun-2017 Change: Prolonged QT and right axis are old. ED Course 1952: The patient was evaluated in room C3. A complete history and physical exam was performed. 2100: I reevaluated the patient. 2207: I reevaluated the patient. Discussed results and discharge instructions: She verbalized understanding and agreement. The patient is ready for discharge. Medical Decision The patient is a 52 year old white female with a past medical history of gastroparesis, long QT, high cholesterol, high blood pressure, diabetes who presents to the ED with a cc of persistent flu symptoms beginning 1 week ago. Differential diagnosis: URI, pharyngitis, pneumonia, bronchitis, flu, viral syndrome. Patient was seen and evaluated the bedside. Patient had been complaining of a week's worth of URI and/or flulike symptoms. Patient states she hasn't tried taking some NyQuil and DayQuil without much relief. Patient states that her other family members have had similar symptoms. Patient did not have a flu shot this year. On exam the patient did have some mild tachycardia but was otherwise fairly well-appearing. Patient did have blood work completed along with symptom control and some IV fluids. Patient was also encouraged to try by mouth hydration. Patient is flu was negative. Patient had a normal white blood cell count. She refused to give a urine. Patient did have an elevated glucose. Patient states that she is intermittently taking metformin for type 2 diabetes. Patient has a normal anion gap and is not in DKA. Patient's chest x- ray negative. Patient's heart rate improved. Patient was feeling improved. Patient did receive some steroids. Patient says that she did have some issues with by mouth steroids for did tell her that she can to continue take Motrin and that the current steroids given would last up to 48 hours. Patient was also given recommendations on [id number] as well as home remedies for symptoms. Patient was deemed suitable for outpatient follow-up and treatment. Patient was given strict follow-up, discharge, and return precautions. All questions were answered. Patient was deemed suitable for outpatient follow-up at this time. Patient agreed with the plan of care and was safely discharged home. Medication Reconcilliation Current Medication List: was personally reviewed by me Blood Pressure Screening Patient's blood pressure: Normal blood pressure Blood pressure disposition: Did not require urgent referral Impression Primary Impression: Cough Additional Impression: Upper respiratory infection Scribe Attestation The scribe's documentation has been prepared under my direction and personally reviewed by me in its entirety. I confirm that the note above accurately reflects all work, treatment, procedures, and medical decision making performed by me. Departure Information Dispostion Home / Self-Care Prescriptions Hydrocodone W/ Homatropine (HYCODAN 5/1.5MG 5 ML) 1 Syp Syp 5 ML PO Q6H Y for Cough, #60 ML Prov: Salvador Tapia M.D. 09/01/17 Referrals Marcie Hernández (PCP) Patient Instructions Coughing Techniques, ED Upper Resp Infec No Abx Tx, My [facility] Additional Instructions Please return to the emergency department if you have worsening or recurrent symptoms not amenable to at-home treatment. Please call for a follow-up appointment with her primary care physician. Please take your medications as prescribed. If you have other concerns and/or complaints please feel free to also call your primary care physician's office or return the ED for further evaluation, management, and treatment. You may take 600 mg Ibuprofen every 6 hours as needed for pain with food for no more than 2 consecutive days. You may take tylenol 1000 mg every 6 hours as needed for pain. You may take motrin and tylenol separately or at the same time. He may also try [id number] decongestants but for no more than 2 consecutive days as he may cause some rebound congestion. He may also try saline nasal sprays. You may also try tea with lemon and honey. He may also try saltwater gargles. Take your medications as prescribed. Do not take your prescribed benzodiazepines with the Hycodan as this may cause you to be sedated and can cause respiratory complications. You have been examined and treated today on an emergency basis only. This is not a substitute for, or an effort to provide, complete comprehensive medical care. It is impossible to recognize and treat all injuries or illnesses in a single emergency department visit. It is therefore important that you follow up closely with [facility], your PCP, and/or your specialist(s). Call as soon as possible for an appointment. Thank you for your time and consideration. I look forward to speaking with you again soon. Please don't hesitate to call us if you have any questions. Problem Qualifiers Additional Impression: Upper respiratory infection URI type: unspecified URI Qualified Codes: J06.9 - Acute upper respiratory infection, unspecified
--- NOTE | 2017-09-01 20:35 | DIAGNOSTIC IMAGING REPORT ---
SINGLE VIEW CHEST CLINICAL HISTORY: Dyspnea. FINDINGS: An AP, portable, upright chest radiograph is compared to study dated 02/10/2017. The examination is degraded by portable technique, large body habitus, and patient rotation. The cardiomediastinal silhouette is unremarkable. The lungs and pleural spaces are clear. No pneumothorax is seen. The bony thorax is grossly intact. IMPRESSION: No active disease in the chest. Electronically signed by: James Phelps M.D. 09/01/2017 8:34 PM Dictated Date/Time: 09/01/2017 8:33 PM
[2017-09-01 20:51] LABS: BASO % 0.3 %; BASO ABS # 0.02 K/uL (0-0.2); COMPLETE YES; EOS % 1.8 %; IG% 0.3 %; LYMPH % 37.4 %; LYMPH ABS # 2.95 K/uL (1.2-3.4); MEAN CELL VOLUME 88.5 fL (80-100); MEAN CORPUSCULAR HEMOGLOBIN 31.3 pg (25-34); MEAN CORPUSCULAR HGB CONC 35.3 g/dl (32-36); MONO % 7.9 %; NEUT % 52.3 %; PLATELET COUNT 265 K/uL (130-400); RED BLOOD COUNT 4.86 M/uL (4.2-5.4); WHITE BLOOD COUNT 7.89 K/uL (4.8-10.8)
[2017-09-01 21:12] LABS: BUN/CREATININE RATIO 10.3 (10-20); CALCIUM 9.9 mg/dl (8.5-10.1); CREATININE 1.08 mg/dl (0.60-1.20); POTASSIUM 3.9 mmol/L (3.5-5.1)
[2017-09-01 21:15] LABS: ALB/GLOB RATIO 0.9 (0.9-2)
[2017-09-01] MEDS ORDERED: SODIUM CHLORIDE 0.9% 500ML 500 ML IV STA (21:18)
[2017-09-01] MEDS ORDERED: LEVO112T4 PO (21:56)
[2017-09-01] MEDS ORDERED: GLC/500 PO (21:57)
[2017-09-01] MEDS ORDERED: CHOL20007 PO (21:59)
[2017-09-01] MEDS ORDERED: HYDR5SYP11 PO (22:11)
[2017-09-01 22:25] VITALS: BP 134/88; PULSE 89; O2SAT 93
== END 2017-09-01 22:26 | disposition home or self-care (01) ==
LOC: EDBD 19:45 → C.EDC 19:47
DX: R05 Cough (principal); J06.9 Acute upper respiratory infection, unspecified; F41.9 Anxiety disorder, unspecified; E11.9 Type 2 diabetes mellitus without complications; K21.9 Gastro-esophageal reflux disease without esophagitis; E78.5 Hyperlipidemia, unspecified; I10 Essential (primary) hypertension; E03.9 Hypothyroidism, unspecified; D50.9 Iron deficiency anemia, unspecified; M54.16 Radiculopathy, lumbar region; M19.90 Unspecified osteoarthritis, unspecified site; F43.10 Post-traumatic stress disorder, unspecified; Z83.3 Family history of diabetes mellitus; Z82.49 Family history of ischemic heart disease and other diseases of the circulatory system; Z83.79 Family history of other diseases of the digestive system; Z84.1 Family history of disorders of kidney and ureter; Z79.899 Other long term (current) drug therapy

== ENCOUNTER 2017-09-02 23:47 | Inpatient (IN) | payer OTHER ==
[~2017-09-02] VITALS: Ht 154.9 cm; Wt 103.5 kg
[~2017-09-02 23:47] MED LIST changes: +CHOL20007 PO; +GLC/500 PO; -GLC500 PO; +HYDR5SYP11 PO; +LEVO112T4 PO; -LEVO125T72 PO; -VTMD1000 PO
[2017-09-02] MEDS ORDERED: EPINEPHRINE ADULT AUTO-INJECT 0.3 MG SYR IM STA (23:56)
[2017-09-02] MEDS ORDERED: EpINEphrine INJ 1MG/ML AMP 1 MG/ML AMP ONE (23:57)
[2017-09-02] MEDS ORDERED: FAMOTIDINE 20MG/5ML IV PUSH IV STA (23:58)
[2017-09-02] MEDS ORDERED: DiphenhydrAMINE HCL 50 MG/ML VIAL IV STA (23:58)
[2017-09-03] MEDS ORDERED: DEXAMETHASONE **PF** INJ 10 MG/ML VIAL IV ONE
[2017-09-03] MEDS ORDERED: ALBUT/IPRATROP 3MG/0.5MG NEB 3 ML VIAL INH STA (00:03)
[2017-09-03 00:14] LABS: BASO % 0.1 %; BASO ABS # 0.01 K/uL (0-0.2); COMPLETE YES; EOS % 0.1 %; HEMATOCRIT 39.5 % (37-47); IG% 0.4 %; LYMPH % 30.6 %; LYMPH ABS # 4.19 K/uL (1.2-3.4); MEAN CELL VOLUME 88.2 fL (80-100); MEAN CORPUSCULAR HEMOGLOBIN 30.6 pg (25-34); MEAN CORPUSCULAR HGB CONC 34.7 g/dl (32-36); MEAN PLATELET VOLUME 9.8 fL (7.4-10.4); NEUT % 60.8 %; PLATELET COUNT 307 K/uL (130-400); RED BLOOD COUNT 4.48 M/uL (4.2-5.4); WHITE BLOOD COUNT 13.69 K/uL (4.8-10.8)
[2017-09-03] MEDS ORDERED: LORAZEPAM 2 MG/ML 1 ML VIAL IV STA (00:29)
[2017-09-03 00:40] LABS: ALT/SGPT 57 U/L (12-78); AST/SGOT 33 U/L (15-37); BLOOD UREA NITROGEN 16 mg/dl (7-18); BUN/CREATININE RATIO 13.4 (10-20); CALCIUM 9.6 mg/dl (8.5-10.1); CARBON DIOXIDE 25 mmol/L (21-32); CHLORIDE 101 mmol/L (98-107); CREATININE 1.19 mg/dl (0.60-1.20); GLUCOSE 345 mg/dl (70-99); POTASSIUM 4.2 mmol/L (3.5-5.1); SODIUM 134 mmol/L (136-145)
[2017-09-03] MEDS ORDERED: ALUMINUM/MAGNESIUM SUSP 30 ML UDC PO STA (00:49)
[2017-09-03] MEDS ORDERED: LIDOCAINE HCL 2% VISC SOLN 20 ML UDC PO STA (00:49)
[2017-09-03 00:50] LABS: ALKALINE PHOSPHATASE 122 U/L (45-117); BETA-HYDROXYBUTYRATE 1.08 mg/dL (0.2-2.81)
[2017-09-03] MEDS ORDERED: ACETAMINOPHEN 500 MG TAB PO STA (01:34)
[2017-09-03] MEDS ORDERED: CEFTRIAXONE SOD INJ 1 GM ADDVIAL IV STA (02:20)
[2017-09-03] MEDS ORDERED: POLYETHYLENE (MIRALAX) 17 GM PACK PO PRN (02:45)
[2017-09-03] MEDS ORDERED: MAGNESIUM HYDROXIDE SUSP 30 ML UDC PO PRN (02:45)
[2017-09-03] MEDS ORDERED: NITROGLYCERIN 0.4 MG SL PER TAB CHARGE SL PRN (02:45)
[2017-09-03] MEDS ORDERED: MoRPHine SULFATE 2 MG/ML CARP IV PRN (02:45)
[2017-09-03] MEDS ORDERED: HYDROCHLOROTHIAZIDE 25 MG TAB PO PRN (02:45)
[2017-09-03] MEDS ORDERED: ACETAMINOPHEN 325 MG TAB PO PRN (02:45)
[2017-09-03] MEDS ORDERED: ALUMINUM/MAGNESIUM/SIMETH (MAALOX MAX) 30 ML UDC PO PRN (02:45)
[2017-09-03] MEDS ORDERED: OPTIRAY 320 IV PRN (03:00)
--- NOTE | 2017-09-03 03:06 | History and Physical ---
History & Physical Date & Time of Service: Sep 03, 2017 at 02:49 Chief Complaint: Sob,Allergic Reaction Primary Care Physician: Marcie Hernández History of Present Illness Source: patient, hospital records This is a 52 yo f with a h/o DMII, HTN, anxiety that is presenting to us after suffering from sudden SOB and throat pain. Patient was seen yesterday in the ED and diagnosed with bronchitis and d/c with hycoden. Patient took an initial dose and had some throat discomfort with it today and after a second dose she had worsening throat tightness and sudden SOB and patient was concerned about her symptoms and came to the ED for evaluation. The patient was treated with epinephrine and steroids without improvement and remained hypoxic. She then received Ativan 1 mg IV as she noted she had not taken her Clonazepam today as the physician had told her to avoid the medication with the hycoden and once again no improvement in her symptoms. Aside from the SOB she notes a vague chest pain which is non radiating and constant since symptoms started; currently a 3/10; and nausea with abdominal "discomfort", not pain. With ongoing hypoxia regardless of intervention decision was made to admit patient for further evaluation and possible intervention. Past Medical/Surgical History Medical Problems: (1) ANXIETY STATE NOS Status: Chronic (2) Bilateral lower extremity edema Status: Resolved (3) Bilateral lower extremity edema Status: Resolved (4) Corneal abrasion, left Status: Resolved (5) ENDOMETRIOSIS NOS Status: Chronic (6) ESOPHAGEAL REFLUX Status: Chronic (7) HYPERLIPIDEMIA NEC/NOS Status: Chronic (8) HYPERTENSION NOS Status: Chronic (9) HYPOTHYROIDISM NOS Status: Chronic (10) IRON DEFIC ANEMIA NOS Status: Chronic (11) MEL-PELAYO SYNDROME Status: Resolved (12) OSTEOARTHROS NOS-UNSPEC Status: Chronic (13) Panic disorder with agoraphobia Status: Chronic (14) PTSD (post-traumatic stress disorder) Status: Chronic (15) Puncture wound of left foot Status: Resolved (16) Puncture wound of left foot Status: Resolved (17) Thumb fracture Status: Resolved Family History Diabetes mellitus FH: heart disease FHx: gallbladder disease Hypertension Kidney disease Kidney stones Seizures Social History Smoking Status: Never Smoker Smokeless Tobacco Use: No Alcohol Use: none Drug Use: none Marital Status: Housing status: lives with family Occupational Status: unemployed Immunizations History of Influenza Vaccine: N/A History of Tetanus Vaccine?: utd History of Pneumococcal: No History of Hepatitis B Vaccine: No Multi-Drug Resistant Organisms History of MDRO: No Allergies Coded Allergies: Methylprednisolone (Verified Allergy, Mild, RASH, 09/03/17) Ondansetron (Verified Allergy, Mild, Cardiac symptoms , 09/03/17) Pt states d/t cardiac issue, prolonged QT interval, she is unable to take zofran- requests to be put on her allergy list Erythromycin (Verified Allergy, Unknown, RASH, 09/03/17) Sulfa Antibiotics (Verified Allergy, Unknown, RASH, 09/03/17) Hydromorphone (Verified Adverse Reaction, Intermediate, confusion, ) Home Medications Scheduled Ascorbic Acid (Vitamin C), 500 MG PO QAM Cholecalciferol (Vitamin D3), 4,000 UNITS PO DAILY Diclofenac Sod (Voltaren), 1 APPLN EXT QID Escitalopram Oxalate (Escitalopram Oxalate), 20 MG PO QAM Escitalopram Oxalate (Lexapro), 10 MG PO DAILY Ferrous Sulfate (Iron), 325 MG PO HS Levothyroxine Sodium (Levothyroxine Sodium), 112 MCG PO DAILY Lisinopril (Lisinopril), 10 MG PO QPM Loratadine (Claritin), 10 MG PO QAM Metformin Hcl (Glucophage), 500 MG PO BID Metoprolol Tartrate (Lopressor) (Lopressor), 25 MG PO BID Omeprazole (Prilosec), 40 MG PO QAM Polyethylene (Miralax), 17 GM PO DAILY Simvastatin (Simvastatin), 40 MG PO HS Scheduled PRN Clonazepam (Klonopin), 1 MG PO TID PRN for Anxiety Hydrochlorothiazide (Hydrochlorothiazide), 25 MG PO DAILY PRN for Swelling Hydrocodone W/ Homatropine (Hycodan 5/1.5MG 5 Ml), 5 ML PO Q6H PRN for Cough Metoclopramide (Reglan), 10 MG PO UD PRN for GASTROPARESIS Review of Systems Constitutional: No fever, No chills, No sweats Eyes: No worsening of vision ENT: No hearing loss Respiratory: + cough, + shortness of breath, + dyspnea on exertion, + dyspnea at rest, No hemoptysis Cardiovascular: + chest pain, No palpitations Abdomen: + nausea, No pain, No vomiting, No diarrhea, No constipation Musculoskeletal: No joint pain, No muscle pain Genitourinary - Female: No dysuria, No hematuria Neurologic: No weakness, No numbness/tingling, No balance problems Psychiatric: No depression symptoms Endocrine: No fatigue Hematologic / Lymphatic: No abnormal bleeding/bruising Integumentary: No rash Physical Exam Vital Signs Date Time Temp Pulse Resp B/P (MAP) Pulse Ox O2 Delivery O2 Flow Rate FiO2 09/03/17 01:42 95 23 95 Nasal Cannula 2.0 09/03/17 01:31 134/70 09/03/17 01:27 97 25 92 09/03/17 01:20 Nasal Cannula 2.0 09/03/17 01:12 96 31 95 Nasal Cannula 2.0 09/03/17 01:07 96 86 Room Air 09/03/17 01:02 131/70 09/03/17 00:52 94 27 87 09/03/17 00:47 94 41 89 09/03/17 00:32 103 19 162/58 99 09/03/17 00:27 149/85 09/03/17 00:25 Room Air 09/03/17 00:17 78 32 95 09/03/17 00:02 87 30 97 Room Air 09/03/17 00:01 105 09/02/17 23:57 98 Room Air 09/02/17 23:57 36.9 102 22 170/82 98 Room Air 09/02/17 23:54 170/82 General Appearance: + mild distress Head: normocephalic, atraumatic Eyes: normal inspection ENT: normal ENT inspection, + pertinent finding (no facial or tongue swelling noted) Neck: supple Respiratory/Chest: normal breath sounds, no respiratory distress, no accessory muscle use Cardiovascular: regular rate, rhythm, no murmur, normal peripheral pulses Abdomen/GI: normal bowel sounds, non tender, soft Back: normal inspection, no CVA tenderness Extremities/Musculoskelatal: no calf tenderness, no pedal edema, normal range of motion Neurologic/Psych: alert, normal mood/affect, oriented x 3 Skin: normal color, warm/dry, no rash Lymphatic: no adenopathy Diagnostics Laboratory Results Results Past 24 Hours Test 09/03/17 00:04 Range/Units White Blood Count 13.69 4.8-10.8 K/uL Red Blood Count 4.48 4.2-5.4 M/uL Hemoglobin 13.7 12.0-16.0 g/dL Hematocrit 39.5 37-47 % Mean Corpuscular Volume 88.2 80-100 fL Mean Corpuscular Hemoglobin 30.6 25-34 pg Mean Corpuscular Hemoglobin Concent 34.7 32-36 g/dl Platelet Count 307 130-400 K/uL Mean Platelet Volume 9.8 7.4-10.4 fL Neutrophils (%) (Auto) 60.8 % Lymphocytes (%) (Auto) 30.6 % Monocytes (%) (Auto) 8.0 % Eosinophils (%) (Auto) 0.1 % Basophils (%) (Auto) 0.1 % Neutrophils # (Auto) 8.32 1.4-6.5 K/uL Lymphocytes # (Auto) 4.19 1.2-3.4 K/uL Monocytes # (Auto) 1.10 0.11-0.59 K/uL Eosinophils # (Auto) 0.01 0-0.5 K/uL Basophils # (Auto) 0.01 0-0.2 K/uL RDW Standard Deviation 41.5 36.4-46.3 fL RDW Coefficient of Variation 13.0 11.5-14.5 % Immature Granulocyte % (Auto) 0.4 % Immature Granulocyte # (Auto) 0.06 0.00-0.02 K/uL Sodium Level 134 136-145 mmol/L Potassium Level 4.2 3.5-5.1 mmol/L Chloride Level 101 98-107 mmol/L Carbon Dioxide Level 25 21-32 mmol/L Anion Gap 8.0 3-11 mmol/L Blood Urea Nitrogen 16 7-18 mg/dl Creatinine 1.19 0.60-1.20 mg/dl Est Creatinine Clear Calc Drug Dose 67.5 ml/min Estimated GFR () 61.2 Estimated GFR (Non- 52.8 BUN/Creatinine Ratio 13.4 10-20 Random Glucose 345 70-99 mg/dl Calcium Level 9.6 8.5-10.1 mg/dl Total Bilirubin 0.4 0.2-1 mg/dl Direct Bilirubin 0.1 0-0.2 mg/dl Aspartate Amino Transf (AST/SGOT) 33 15-37 U/L Alanine Aminotransferase (ALT/SGPT) 57 12-78 U/L Alkaline Phosphatase 122 45-117 U/L Troponin I < 0.015 0-0.045 ng/ml Total Protein 8.3 6.4-8.2 gm/dl Albumin 3.9 3.4-5.0 gm/dl Lipase 172 73-393 U/L Beta-Hydroxybutyric Acid 1.08 0.2-2.81 mg/dL Diagnostic Radiology No significant findings on CXR EKG 88, no ischemic changes noted, no ectopy Impression Assessment and Plan This is a 52 yo f that is suffering from acute hypoxic Acute hypoxic respiratory failure possibly secondary to PE vs cardiac ischemia vs anxiety - CT for PE considering acute onset of SOB/ hypoxia - O2 per nursing protocol with goal of > 95% - NO narcs for pain control - troponin trend - echo based on results, currently not ordered Depression/ Anxiety - continue Clonazepam 1 mg prn tid - continue lexapro 30 mg daily HTN /Hyperlipidemia - continue lisinopril 10 mg daily and Metoprolol 25 mg daily - continue HCTZ 25 mg daily - continue simvastatin 40 mg daily DMII - metformin held - insulin sliding scale - BSG AC HS - continue Reglan for gastroparesis Hypothyroidism - continue levothyroxine 112 mcg DVT Prophylaxis SCD and if troponin negative transition to chemical prophylaxis Attending addendum: I have physically seen this patient, have supervised the medical residents activities, and agree with the H&P unless as otherwise noted. Assessment and Plan: Hypoxia/delayed onset while in ED/question of exposure the Hycodan as cause-- CTA chest has been ordered to assess for PE The patient will be admitted to telemetry for serial cardiac enzymes, cardiac rhythm monitoring and a 2-D echocardiogram with Dopplers. Hypertension-- Continue metoprolol, lisinopril and HCTZ Anxiety with depression-- Continue clonazepam and Lexapro current dosing Cymbalta has been suggested for patient in the past for better pain management but she has refused Diabetes mellitus/gastroparesis-- Hold metformin Place on Accu-Cheks before meals and at bedtime with NovoLog coverage per scale Blood sugar of 345 in the emergency department, per patient, was due to chugging soda because she wasn't feeling well. Continue Reglan Hypothyroidism-- Continue levothyroxin Level of Care Telemetry Advanced Directives Existing Advance Directive: No Existing Living Will: No Existing Power of Applications Programmer: No Resuscitation Status FULL RESUSCITATION VTE Prophylaxis VTE Risk Assessment Done? Y/N: Yes Risk Level: Moderate Given or contraindicated: SCD's Social Service Consult None Apply Note Total Time: Critical Care 30 - 74 minutes Additional Copies To Marcie Hernández
[2017-09-03 03:29] VITALS: BP 133/66; PULSE 81; TEMP 36.6; O2SAT 95; BMI 43.1
--- NOTE | 2017-09-03 03:29 | EMERGENCY ROOM VISIT NOTE ---
History First contact with patient: 23:52 Chief Complaint: ALLERGIC REACTION Stated Complaint: SOB,ALLERGIC REACTION Nursing Triage Summary: Pt presents for eval of allergic rxn to cough medicine she was given here last night. Pt reports nausea, blurred vision, tightness of throat and chest. states they were leaving to come here, pt hit the "cold air" and either fell or passed out, skin tear to leg lower leg from that. 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 History of Present Illness The patient is a 52 year old female who presents to the Emergency Room with complaints of throat tightness, chest pain and difficulty breathing after taking Hycodan cough syrup tonight. Patient states she took 1 dose and started get some throat tightness and tingling and then she decided take another dose and symptoms got much worse. Patient states he struggling to breathe. She informed her and brought her here. Patient states she's not sure if she passed out or hit something as She does not remember walking from the house to the car. did not witness this. Patient denies head injury, neck pain, back pain, abdominal pain, fever, leg pain or swelling. No rash. No prior Hycodan cough syrup in the past. Patient was informed not to take her clonazepam while taking the Hycodan cough syrup. Patient suffers from anxiety. Review of Systems See HPI for pertinent positives & negatives. A total of 10 systems reviewed and were otherwise negative. 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 (20) OSTEOARTHROS NOS-UNSPEC (21) Panic disorder with agoraphobia (22) PTSD (post-traumatic stress disorder) (23) Puncture wound of left foot (24) Puncture wound of left foot (25) Thumb fracture Surgical Problems: (1) Hx of section Family History Diabetes mellitus FH: heart disease FHx: gallbladder disease Hypertension Kidney disease Kidney stones Seizures Social History Smoking Status: Never Smoker Alcohol Use: occasionally Drug Use: none Marital Status: Housing Status: lives with family Occupation Status: unemployed Current/Historical Medications Scheduled Ascorbic Acid (Vitamin C), 500 MG PO QAM Cholecalciferol (Vitamin D3), 4,000 UNITS PO DAILY Diclofenac Sod (Voltaren), 1 APPLN EXT QID Escitalopram Oxalate (Escitalopram Oxalate), 20 MG PO QAM Escitalopram Oxalate (Lexapro), 10 MG PO DAILY Ferrous Sulfate (Iron), 325 MG PO HS Levothyroxine Sodium (Levothyroxine Sodium), 112 MCG PO DAILY Lisinopril (Lisinopril), 10 MG PO QPM Loratadine (Claritin), 10 MG PO QAM Metformin Hcl (Glucophage), 500 MG PO BID Metoprolol Tartrate (Lopressor) (Lopressor), 25 MG PO BID Omeprazole (Prilosec), 40 MG PO QAM Polyethylene (Miralax), 17 GM PO DAILY Simvastatin (Simvastatin), 40 MG PO HS Scheduled PRN Clonazepam (Klonopin), 1 MG PO TID PRN for Anxiety Hydrochlorothiazide (Hydrochlorothiazide), 25 MG PO DAILY PRN for Swelling Hydrocodone W/ Homatropine (Hycodan 5/1.5MG 5 Ml), 5 ML PO Q6H PRN for Cough Metoclopramide (Reglan), 10 MG PO UD PRN for GASTROPARESIS Physical Exam Vital Signs Date Time Temp Pulse Resp B/P (MAP) Pulse Ox O2 Delivery O2 Flow Rate FiO2 09/03/17 01:42 95 23 95 Nasal Cannula 2.0 09/03/17 01:31 134/70 09/03/17 01:27 97 25 92 09/03/17 01:20 Nasal Cannula 2.0 09/03/17 01:12 96 31 95 Nasal Cannula 2.0 09/03/17 01:07 96 86 Room Air 09/03/17 01:02 131/70 09/03/17 00:52 94 27 87 09/03/17 00:47 94 41 89 09/03/17 00:32 103 19 162/58 99 09/03/17 00:27 149/85 09/03/17 00:25 Room Air 09/03/17 00:17 78 32 95 09/03/17 00:02 87 30 97 Room Air 09/03/17 00:01 105 09/02/17 23:57 98 Room Air 09/02/17 23:57 36.9 102 22 170/82 98 Room Air 09/02/17 23:54 170/82 Physical Exam VITALS: Vitals are noted on the nurse's note and reviewed by myself. Vital signs hypertensive GENERAL: White female anxious-appearing, unable to speak in full sentences working to breathe SKIN: The skin was without rashes, erythema, edema, or bruising. There is no tenting of the skin. Capillary reflex less than 2 seconds. HEAD: Normocephalic atraumatic. EARS: External auditory canals clear, tympanic membranes pearly bonilla without erythema or effusion bilaterally. EYES: Pupils equal round and reactive to light and accommodation. Conjunctivae without injection, sclerae without icterus. Extraocular movements intact. NOSE: Patent, turbinates without inflammation or discharge. No sinus tenderness. MOUTH: Mucous membranes moist. Pharynx without erythema or exudate. Uvula midline. Airway patent. Tongue does not deviate. NECK: Supple without nuchal rigidity. No lymphadenopathy. No thyromegaly. Cervical spine is nontender. No JVD. HEART: Regular rate and rhythm without murmurs gallops or rubs. LUNGS: Clear to auscultation bilaterally without wheezes, rales or rhonchi. No dullness to percussion. No retractions or accessory muscle use. ABDOMEN: Positive bowel sounds x 4. Normal tympanic percussion. Soft, nontender, without masses or organomegaly. Rodriguez sign negative. No guarding or rebound tenderness. MUSCULOSKELETAL: No muscle atrophy, erythema, or edema noted. NEURO: Patient was alert and oriented to person place and time. Normal sensation to light and sharp touch. No focal neurological deficits. Medical Decision & Procedures Laboratory Results 09/03/17 00:04 Red Blood Count 4.48, Mean Corpuscular Volume 88.2, Mean Corpuscular Hemoglobin 30.6, Mean Corpuscular Hemoglobin Concent 34.7, Mean Platelet Volume 9.8, Neutrophils (%) (Auto) 60.8, Lymphocytes (%) (Auto) 30.6, Monocytes (%) (Auto) 8.0, Eosinophils (%) (Auto) 0.1, Basophils (%) (Auto) 0.1, Neutrophils # (Auto) 8.32, Lymphocytes # (Auto) 4.19, Monocytes # (Auto) 1.10, Eosinophils # (Auto) 0.01, Basophils # (Auto) 0.01 09/03/17 00:04 Test 09/03/17 00:04 White Blood Count 13.69 K/uL (4.8-10.8) Red Blood Count 4.48 M/uL (4.2-5.4) Hemoglobin 13.7 g/dL (12.0-16.0) Hematocrit 39.5 % (37-47) Mean Corpuscular Volume 88.2 fL (80-100) Mean Corpuscular Hemoglobin 30.6 pg (25-34) Mean Corpuscular Hemoglobin Concent 34.7 g/dl (32-36) Platelet Count 307 K/uL (130-400) Mean Platelet Volume 9.8 fL (7.4-10.4) Neutrophils (%) (Auto) 60.8 % Lymphocytes (%) (Auto) 30.6 % Monocytes (%) (Auto) 8.0 % Eosinophils (%) (Auto) 0.1 % Basophils (%) (Auto) 0.1 % Neutrophils # (Auto) 8.32 K/uL (1.4-6.5) Lymphocytes # (Auto) 4.19 K/uL (1.2-3.4) Monocytes # (Auto) 1.10 K/uL (0.11-0.59) Eosinophils # (Auto) 0.01 K/uL (0-0.5) Basophils # (Auto) 0.01 K/uL (0-0.2) RDW Standard Deviation 41.5 fL (36.4-46.3) RDW Coefficient of Variation 13.0 % (11.5-14.5) Immature Granulocyte % (Auto) 0.4 % Immature Granulocyte # (Auto) 0.06 K/uL (0.00-0.02) Anion Gap 8.0 mmol/L (3-11) Est Creatinine Clear Calc Drug Dose 67.5 ml/min Estimated GFR () 61.2 Estimated GFR (Non- 52.8 BUN/Creatinine Ratio 13.4 (10-20) Calcium Level 9.6 mg/dl (8.5-10.1) Total Bilirubin 0.4 mg/dl (0.2-1) Direct Bilirubin 0.1 mg/dl (0-0.2) Aspartate Amino Transf (AST/SGOT) 33 U/L (15-37) Alanine Aminotransferase (ALT/SGPT) 57 U/L (12-78) Alkaline Phosphatase 122 U/L (45-117) Troponin I < 0.015 ng/ml (0-0.045) Total Protein 8.3 gm/dl (6.4-8.2) Albumin 3.9 gm/dl (3.4-5.0) Lipase 172 U/L (73-393) Beta-Hydroxybutyric Acid 1.08 mg/dL (0.2-2.81) Medications Administered Medications (Trade) Dose Ordered Sig/Prachi Route Start Time Stop Time Status Last Admin Dose Admin Epinephrine HCl (EpINEphrine INJ 1MG/ML AMP/VIAL) 1 mg STK-MED ONCE .ROUTE 09/02/17 23:57 09/02/17 23:58 DC 09/02/17 23:59 0.3 MG Dexamethasone Sodium Phosphate (Dexamethasone Inj Pf) 10 mg NOW ONCE IV 09/03/17 00:00 09/03/17 00:01 DC 09/03/17 00:06 10 MG Diphenhydramine HCl (Benadryl Inj) 50 mg NOW STAT IV 09/02/17 23:58 09/03/17 00:00 DC 09/03/17 00:18 50 MG Famotidine (Pepcid 20mg Iv Push) 20 mg ONE STAT IV 09/02/17 23:58 09/03/17 00:00 DC 09/03/17 00:15 20 MG Albuterol/ Ipratropium (Duoneb) 3 ml NOW STAT INH 09/03/17 00:03 09/03/17 00:05 DC 09/03/17 00:22 3 ML Lorazepam (Ativan Inj) 1 mg NOW STAT IV 09/03/17 00:29 09/03/17 00:30 DC 09/03/17 00:41 1 MG Lidocaine HCl (Viscous Lidocaine 2% Soln) 10 ml NOW STAT PO 09/03/17 00:49 09/03/17 00:51 DC 09/03/17 00:56 10 ML Al Hydroxide/Mg Hydroxide (Maalox Susp) 30 ml NOW STAT PO 09/03/17 00:49 09/03/17 00:51 DC 09/03/17 00:56 30 ML Acetaminophen (Tylenol Tab) 1,000 mg NOW STAT PO 09/03/17 01:34 09/03/17 01:36 DC 09/03/17 01:41 1,000 MG Ceftriaxone Sodium (Rocephin Inj) 1 gm NOW STAT IV 09/03/17 02:20 09/03/17 02:21 DC 09/03/17 02:43 1 GM ED Course Prior records/ancillary studies reviewed. Triage Nursing notes reviewed. Additional history obtained from family The patient's history was concerning for possible allergic reaction with throat tightness, shortness breath and chest pain. Differential diagnosis: Etiologies such as allergic reaction, anaphylaxis, anxiety, cardiac ischemia, aortic dissection, pulmonary embolism, pneumonia, pneumothorax, musculoskeletal , infections, pericarditis, myocarditis, esophageal rupture, gastrointestinal, as well as others were entertained. Physical examination: As above. ER treatment provided: EpiPen, Decadron, Benadryl, Pepcid, Ativan, Duo neb On reassessment the patient felt better. Diagnostic interpretation by me: The electrocardiogram was negative for pathologic change. Normal sinus, prolonged QT unchanged prior EKG, no acute ST-T wave changes, rate 85. Impression normal sinus rhythm with prolonged QT interpreted by myself. Repeat EKG is unchanged. The labs revealed negative troponin. Stable H&H Imaging studies: Chest x-ray with no acute consolidation, pneumothorax or free air per my interpretation Consultation: A consultation was placed with the hospitalist, Dr. Curtis. The case was discussed and diagnostics were reviewed. The patient was evaluated in the ER for further treatment. Exam and history seem consistent with bronchitis with hypoxemia. Patient's pulse ox on room air was 88%. No obvious pneumonia on x-ray. There could be a developing infiltrate in the right lower base and Rocephin was given. Patient felt much better from her allergic reaction standpoint after being medicated as above. Her throat was no longer tight. She was still hypoxic. She will be evaluated by medicine for possible admission. By the evaluation outlined above emergent etiologies such as cardiac ischemia, aortic dissection, pneumothorax, infections, pericarditis, myocarditis, gastrointestinal, as well as others were deemed relatively unlikely. The pt informed about the findings as listed above. All questions were answered and pleased with the treatment. Case reviewed by attending Medical Decision As above Head Trauma GCS Score: 15 Medication Reconcilliation Current Medication List: was personally reviewed by me Blood Pressure Screening Patient's blood pressure: Elevated blood pressure Blood pressure disposition: Referred to PCP Impression Primary Impression: Allergic reaction Additional Impressions: Bronchitis Hypoxemia Departure Information Dispostion Being Evaluated By Hospitalist Condition GOOD Referrals Marcie Hernández (PCP) Patient Instructions My [facility] Health Problem Qualifiers
[2017-09-03] MEDS ORDERED: DEXTROSE 50% 50 ML SYR IV PRN (04:45)
[2017-09-03] MEDS ORDERED: GLUCOSE 40% GEL 15 GM TUBE PO PRN (04:45)
[2017-09-03] MEDS ORDERED: GLUCAGON FOR INJ 1 MG VIAL SQ PRN (04:45)
[2017-09-03] MEDS ORDERED: GLUCOSE 10 TABS/TUBE PO PRN (04:45)
[2017-09-03] MEDS: LEVOTHYROXINE 112 MCG TAB PO SCH (06:02)
--- NOTE | 2017-09-03 07:00 | DIAGNOSTIC IMAGING REPORT ---
CT ANGIOGRAM OF THE CHEST CLINICAL HISTORY: Shortness of breath. Hypoxia. COMPARISON STUDY: Chest x-ray dated 11/04/2016 , CT scan of the abdomen pelvis dated 06/15/2017 TECHNIQUE: Following the IV administration of 92 mL of Optiray-320, CT angiogram of the thorax was performed from the thoracic inlet to the lung bases utilizing the pulmonary embolus protocol. Images are reviewed in the axial, sagittal, and coronal planes. IV contrast was administered without complication. MIP imaging was performed. A dose lowering technique was utilized adhering to the principles of ALARA. CT DOSE: 616.61 mGy.cm FINDINGS: There is hepatic steatosis. A 23 mm left hepatic lobe lesion may represent focal fatty sparing. No pathologically enlarged axillary mediastinal or hilar lymph nodes were visualized. There was no evidence of thoracic aortic dilatation. There were no pulmonary artery filling defects to indicate acute pulmonary embolism. No pleural effusions are visualized. There is subtle groundglass opacities with a mosaic pattern. This may indicate areas of air trapping. IMPRESSION: 1. No evidence of acute pulmonary embolism 2. Hepatic steatosis with an area of presumed focal fatty sparing within the left hepatic lobe. 3. Mild mosaic groundglass attenuation the lungs, likely related to airway disease or less likely small vessel disease. Electronically signed by: Tim Ulrich M.D. 09/03/2017 6:59 AM Dictated Date/Time: 09/03/2017 6:55 AM
--- NOTE | 2017-09-03 07:34 | DIAGNOSTIC IMAGING REPORT ---
CHEST ONE VIEW PORTABLE HISTORY: Atypical CHEST PAIN COMPARISON: Chest 09/01/2017. FINDINGS: The lungs are clear. Cardiac silhouette is normal in size. No pleural effusions. No pneumothorax. IMPRESSION: No acute process. Electronically signed by: Curry Monson M.D. 09/03/2017 7:32 AM Dictated Date/Time: 09/03/2017 7:32 AM
[2017-09-03 07:48] VITALS: BP 123/72; PULSE 73; TEMP 36.3; O2SAT 93
[2017-09-03] MEDS ORDERED: PNEUMOCOCCAL POLYSACCHARIDES 25 MCG/0.5 ML VIAL/SYR IM. ONE (08:00)
[2017-09-03] MEDS ORDERED: INFLUENZA ADMINISTRATION CHARGE ONE (08:00)
[2017-09-03] MEDS ORDERED: PNEUMOCOCCAL ADMINISTRATION CHARGE ONE (08:00)
[2017-09-03] MEDS ORDERED: INFLUENZA VIRUS QUAD VACCINE 0.5 ML SYR IM. ONE (08:00)
[2017-09-03] MEDS: METOPROLOL TARTRATE 25 MG TAB PO SCH ×2 (08:07→21:05)
[2017-09-03] MEDS: LORATADINE 10 MG TAB PO SCH (08:07)
[2017-09-03] MEDS: ESCITALOPRAM OXALATE 20 MG TAB PO SCH (08:07)
[2017-09-03] MEDS: ESCITALOPRAM OXALATE 10 MG TAB PO SCH (08:07)
[2017-09-03] MEDS: POLYETHYLENE (MIRALAX) 17 GM PACK PO SCH (08:07)
[2017-09-03] MEDS: ASCORBIC ACID 500 MG TAB PO SCH (08:08)
[2017-09-03] MEDS: PANTOprazole SOD 40 MG TAB PO SCH (08:08)
[2017-09-03] MEDS: CHOLECALCIFEROL 1000 INTER.UNIT TAB PO SCH (08:08)
[2017-09-03] MEDS: INSULIN ASPART 100 UNITS/ML 3 ML PEN SC SCH ×4 (08:10→21:14)
[2017-09-03] MEDS ORDERED: LANTUS PER UNIT CHARGE SC ONE ×2 (08:15)
[2017-09-03] MEDS: DICLOFENAC SOD 1% GEL 100 GM TUBE EXT SCH ×4 (08:18→21:02)
[2017-09-03] MEDS: DOXYCYCLINE HYCLATE 100 MG CAP PO SCH ×2 (08:38→21:02)
[2017-09-03 09:26] LABS: ESTIMATED AVERAGE GLUCOSE 226 mg/dl; HA1C FLAG Normal (Normal)
[2017-09-03] MEDS: CLONAZEPAM 1 MG TAB PO PRN ×3 (09:28→22:48)
[2017-09-03 11:30] VITALS: BP 142/75; PULSE 79; TEMP 36.3; O2SAT 96
[2017-09-03 13:48] VITALS: BMI 43.1
--- NOTE | 2017-09-03 14:28 | Hospitalist Progress Note ---
Hospitalist Progress Note Date of Service Sep 03, 2017. (Isi Liao PA-C) Subjective Pt evaluation today including: conversation w/ patient, physical exam, chart review, lab review, review of studies, review of inpatient medication list Patient seen and evaluated. Admitted early this AM. Reporting feeling a little better but feels that chest is still tight. Continues to have a frequent cough that is productive. Has frequent watery irritated eyes. Feels some pressure around eyes and face. Reports he son came home from college with similar symptoms. No swelling of the mouth or throat visualized Reporting tenderness to palpation of the posterior cervical lymph nodes. Takes short shallow breaths due to frequent coughing. Reporting that she has been on Lisinopril for a long time and have never had issue with this in the past. This does favor acute/URI-like issues instead of Lisinopril angioedema but will monitor Constitutional: No fever, No chills Eyes: + eye pain ("sore"), + discharge (clear frequent tearing), + diplopia ENT: + nasal symptoms, + problem reported (post-nasal drip) Respiratory: + cough, + sputum, + dyspnea on exertion Cardiovascular: + chest pain (with coughing) Abdomen: No pain, No nausea, No vomiting, No diarrhea, No constipation Musculoskeletal: No swelling, No calf pain Female : No dysuria Skin: No rash (Isi Liao, NERISC) Medications Current Inpatient Medications Medications (Trade) Dose Ordered Sig/Prachi Route Start Time Stop Time Status Last Admin Dose Admin Ioversol (Optiray 320) 100 ml UD PRN IV 09/03/17 03:00 09/07/17 02:59 Acetaminophen (Tylenol Tab) 650 mg Q4H PRN PO 09/03/17 02:45 10/03/17 02:44 Al Hydrox/Mg Hydrox/Simethicone (Maalox Max Susp) 15 ml Q4H PRN PO 09/03/17 02:45 10/03/17 02:44 Magnesium Hydroxide (Milk Of Magnesia Susp) 30 ml Q12H PRN PO 09/03/17 02:45 10/03/17 02:44 Nitroglycerin (Nitrostat Tab) 0.4 mg UD PRN SL 09/03/17 02:45 10/03/17 02:44 Polyethylene (Miralax Powder Packet) 17 gm DAILY PRN PO 09/03/17 02:45 10/03/17 02:44 Clonazepam (Klonopin Tab) 1 mg TID PRN PO 09/03/17 02:45 10/03/17 02:44 09/03/17 13:37 1 MG Diclofenac Sodium (Voltaren 1% Top Gel) 1 appln QID EXT 09/03/17 09:00 10/03/17 08:59 Escitalopram Oxalate (Lexapro Tab) 20 mg QAM PO 09/03/17 09:00 10/03/17 08:59 09/03/17 08:07 20 MG Escitalopram Oxalate (Lexapro Tab) 10 mg DAILY PO 09/03/17 09:00 10/03/17 08:59 09/03/17 08:07 10 MG Hydrochlorothiazide (Hydrochlorothiazide Tab) 25 mg DAILY PRN PO 09/03/17 02:45 10/03/17 02:44 Levothyroxine Sodium (Synthroid Tab) 112 mcg DAILYBB PO 09/03/17 06:00 10/03/17 05:59 09/03/17 06:02 112 MCG Lisinopril (Zestril Tab) 10 mg QPM PO 09/03/17 21:00 10/03/17 20:59 Loratadine (Claritin Tab) 10 mg QAM PO 09/03/17 09:00 10/03/17 08:59 09/03/17 08:07 10 MG Metoclopramide HCl (Reglan Tab) 10 mg Q6H PRN PO 09/03/17 02:45 10/03/17 02:44 Metoprolol Tartrate (Lopressor Tab) 25 mg BID PO 09/03/17 09:00 10/03/17 08:59 09/03/17 08:07 25 MG Polyethylene (Miralax Powder Packet) 17 gm DAILY PO 09/03/17 09:00 10/03/17 08:59 09/03/17 08:07 17 GM Simvastatin (Zocor Tab) 40 mg HS PO 09/03/17 21:00 10/03/17 20:59 Ascorbic Acid (Vitamin C Tab) 500 mg QAM PO 09/03/17 09:00 10/03/17 08:59 09/03/17 08:08 500 MG Cholecalciferol (Vitamin D Tab) 4,000 inter.unit DAILY PO 09/03/17 09:00 10/03/17 08:59 09/03/17 08:08 4,000 INTER.UNIT Ferrous Sulfate (Feosol Tab) 325 mg HS PO 09/03/17 21:00 10/03/17 20:59 Pantoprazole Sodium (Protonix Tab) 40 mg QAM PO 09/03/17 09:00 10/03/17 08:59 09/03/17 08:08 40 MG Insulin Aspart (novoLOG ASPART) SLIDING SCALE G... ACHS SC 09/03/17 07:00 10/03/17 06:59 09/03/17 12:50 12 UNITS Glucose (Glucose 40% Gel) 15-30 GRAMS 15 GRAMS... UD PRN PO 09/03/17 04:45 10/03/17 04:44 Glucose (Glucose Chew Tab) 4-8 Tablets 4 Tabl... UD PRN PO 09/03/17 04:45 10/03/17 04:44 Dextrose (Dextrose 50% 50ML Syringe) 25-50ML OF 50% DW IV FOR... UD PRN IV 09/03/17 04:45 10/03/17 04:44 Glucagon (Glucagon Inj) 1 mg UD PRN SQ 09/03/17 04:45 10/03/17 04:44 Doxycycline Hyclate (Vibramycin Cap) 100 mg BID PO 09/03/17 09:00 09/10/17 08:59 09/03/17 08:38 100 MG (Isi Liao, ANDRES) Objective Vital Signs Date Time Temp Pulse Resp B/P (MAP) Pulse Ox O2 Delivery O2 Flow Rate FiO2 09/03/17 12:00 Nasal Cannula 2.0 09/03/17 11:30 36.3 79 24 142/75 (97) 96 Room Air 09/03/17 08:00 Nasal Cannula 2.0 09/03/17 07:48 36.3 73 22 123/72 (89) 93 Nasal Cannula 2.0 09/03/17 03:29 36.6 81 22 133/66 95 Nasal Cannula 2.0 09/03/17 01:42 95 23 95 Nasal Cannula 2.0 09/03/17 01:31 134/70 09/03/17 01:27 97 25 92 09/03/17 01:20 Nasal Cannula 2.0 09/03/17 01:12 96 31 95 Nasal Cannula 2.0 09/03/17 01:07 96 86 Room Air 09/03/17 01:02 131/70 09/03/17 00:52 94 27 87 09/03/17 00:47 94 41 89 09/03/17 00:32 103 19 162/58 99 09/03/17 00:27 149/85 09/03/17 00:25 Room Air 09/03/17 00:17 78 32 95 09/03/17 00:02 87 30 97 Room Air 09/03/17 00:01 105 09/02/17 23:57 98 Room Air 09/02/17 23:57 36.9 102 22 170/82 98 Room Air 09/02/17 23:54 170/82 (Isi Liao, PA-C) Physical Exam General Appearance: WD/WN, no apparent distress Eyes: PERRL, sclerae normal, + pertinent finding (frequent tearing without conjunctivitis; periorbital erythema) ENT: pharynx normal Neck: supple, trachea midline Respiratory/Chest: lungs clear, normal breath sounds, no respiratory distress, no accessory muscle use Cardiovascular: regular rate, rhythm, no gallop, no murmur Abdomen: normal bowel sounds, non tender, soft Extremities: no pedal edema, no calf tenderness Neurologic/Psychiatric: alert, oriented x 3 Skin: normal color, warm/dry (Isi Liao, PA-C) Laboratory Results Last 24 Hours Test 09/03/17 00:04 09/03/17 05:27 09/03/17 05:29 09/03/17 07:10 White Blood Count 13.69 K/uL Red Blood Count 4.48 M/uL Hemoglobin 13.7 g/dL Hematocrit 39.5 % Mean Corpuscular Volume 88.2 fL Mean Corpuscular Hemoglobin 30.6 pg Mean Corpuscular Hemoglobin Concent 34.7 g/dl Platelet Count 307 K/uL Mean Platelet Volume 9.8 fL Neutrophils (%) (Auto) 60.8 % Lymphocytes (%) (Auto) 30.6 % Monocytes (%) (Auto) 8.0 % Eosinophils (%) (Auto) 0.1 % Basophils (%) (Auto) 0.1 % Neutrophils # (Auto) 8.32 K/uL Lymphocytes # (Auto) 4.19 K/uL Monocytes # (Auto) 1.10 K/uL Eosinophils # (Auto) 0.01 K/uL Basophils # (Auto) 0.01 K/uL RDW Standard Deviation 41.5 fL RDW Coefficient of Variation 13.0 % Immature Granulocyte % (Auto) 0.4 % Immature Granulocyte # (Auto) 0.06 K/uL Sodium Level 134 mmol/L Potassium Level 4.2 mmol/L Chloride Level 101 mmol/L Carbon Dioxide Level 25 mmol/L Anion Gap 8.0 mmol/L Blood Urea Nitrogen 16 mg/dl Creatinine 1.19 mg/dl Est Creatinine Clear Calc Drug Dose 67.5 ml/min Estimated GFR () 61.2 Estimated GFR (Non- 52.8 BUN/Creatinine Ratio 13.4 Random Glucose 345 mg/dl Calcium Level 9.6 mg/dl Total Bilirubin 0.4 mg/dl Direct Bilirubin 0.1 mg/dl Aspartate Amino Transf (AST/SGOT) 33 U/L Alanine Aminotransferase (ALT/SGPT) 57 U/L Alkaline Phosphatase 122 U/L Troponin I < 0.015 ng/ml < 0.015 ng/ml Total Protein 8.3 gm/dl Albumin 3.9 gm/dl Lipase 172 U/L Beta-Hydroxybutyric Acid 1.08 mg/dL Estimated Average Glucose 226 mg/dl Hemoglobin A1c 9.5 % Bedside Glucose 424 mg/dl Test 09/03/17 10:46 09/03/17 12:53 Bedside Glucose 314 mg/dl Troponin I < 0.015 ng/ml (Isi Liao, PAConcepciónC) Assessment and Plan This is a 52 yo f that is suffering from acute hypoxic Acute Hypoxic Respiratory Failure 2/2 Likely Atelectasis: - CT without signs of PE and possible findings that may support an atypical PNA - Patient takes shallow breaths due to frequent coughing and likely hypoxia may be result of this - Has good air flow and no wheezing noted; Reports Duonebs without relief; having frequent post-nasal drip but not edema of airways noted - Doxycycline 100 mg BID and can use Tessalon perles TID Depression/ Anxiety: - Clonazepam 1 mg prn tid and Lexapro 30 mg daily HTN /Hyperlipidemia: - Lisinopril 10 mg daily, HCTZ 25 mg daily PRN, and Metoprolol 25 mg BID -- Likely symptoms from acute URI symptoms - but continue to monitor for side effect of Lisinopril - Simvastatin 40 mg daily DMII with Hyperglycemia: A1c 9 - Likely from steroids recieved in ED - Reporting GI effects with Metformin and tried Prandin but insurance will not cover - unemployment specialist discussed with patient - possible Glimiperide as oral option - Continue SSI and continue to monitor - Reglan PRN for gastroparesis Hypothyroidism - Levothyroxine 112 mcg daily DVT Prophylaxis: SCDs Disposition: - Transfer to Med/Surg and continue to wean O2 as tolerated; encourage incentive spirometry and ambulation to promote full deeper breaths as likely this is related to atelectasis Continued [facility] stay due to: other (supplemental O2 needs) Discharge planning: home (Isi Liao, PA-C) i personally examined pt and verified all [place] points w A Keshawn PAC feeling ok not worse eyes runny vitlas noted conjunctiva injected breathing unlabored but still needing O2 atypical pneumonia - abx, supportive care hyperglycemia - anticipate transient likely mostly from steroids given in ER as well as an element of acuity from being ill - but A1c low 7's so this is far from baseline control. insulin management for now (Real Roberto D.O.)
[2017-09-03 15:42] VITALS: BP 154/92; PULSE 76; TEMP 36.9; O2SAT 97
[2017-09-03] MEDS: BENZONATATE 100MG CAP PO SCH ×2 (17:16→21:02)
[2017-09-03] MEDS ORDERED: INSULIN GLARGINE SOLOSTAR 100 UNITS/ML 3 ML PEN SC ONE (17:45)
[2017-09-03] MEDS: SIMVASTATIN 40 MG TAB PO SCH (21:05)
[2017-09-03] MEDS: FERROUS SULFATE 325 MG TAB PO SCH (21:05)
[2017-09-03] MEDS: LISINOPRIL 10 MG TAB PO SCH (21:05)
[2017-09-03 21:06] VITALS: BP 145/72; PULSE 86
[2017-09-03] MEDS: METOCLOPRAMIDE HCL 10 MG TAB PO PRN (21:22)
[2017-09-03 23:42] VITALS: BP 119/65; PULSE 81; TEMP 37; O2SAT 98
[2017-09-04] MEDS: LEVOTHYROXINE 112 MCG TAB PO SCH (06:09)
[2017-09-04 07:06] VITALS: BP 118/73; PULSE 60; TEMP 36.6; O2SAT 94
[2017-09-04] MEDS: CHOLECALCIFEROL 1000 INTER.UNIT TAB PO SCH (08:23)
[2017-09-04] MEDS: ESCITALOPRAM OXALATE 20 MG TAB PO SCH (08:23)
[2017-09-04] MEDS: ESCITALOPRAM OXALATE 10 MG TAB PO SCH (08:23)
[2017-09-04] MEDS: LORATADINE 10 MG TAB PO SCH (08:23)
[2017-09-04] MEDS: BENZONATATE 100MG CAP PO SCH ×3 (08:23→20:45)
[2017-09-04] MEDS: ASCORBIC ACID 500 MG TAB PO SCH (08:24)
[2017-09-04] MEDS: DOXYCYCLINE HYCLATE 100 MG CAP PO SCH ×2 (08:24→20:44)
[2017-09-04] MEDS: PANTOprazole SOD 40 MG TAB PO SCH (08:24)
[2017-09-04] MEDS: POLYETHYLENE (MIRALAX) 17 GM PACK PO SCH (08:24)
[2017-09-04] MEDS: METOPROLOL TARTRATE 25 MG TAB PO SCH ×2 (08:24→20:46)
[2017-09-04] MEDS: DICLOFENAC SOD 1% GEL 100 GM TUBE EXT SCH ×4 (08:25→20:47)
[2017-09-04] MEDS: CLONAZEPAM 1 MG TAB PO PRN ×3 (08:34→20:54)
[2017-09-04] MEDS: INSULIN ASPART 100 UNITS/ML 3 ML PEN SC SCH ×4 (08:38→20:44)
[2017-09-04] MEDS: INSULIN GLARGINE SOLOSTAR 100 UNITS/ML 3 ML PEN SC SCH (08:39)
[2017-09-04 09:04] LABS: HEMATOCRIT 41.8 % (37-47); MEAN CELL VOLUME 90.1 fL (80-100); MEAN CORPUSCULAR HGB CONC 34.4 g/dl (32-36); PLATELET COUNT 272 K/uL (130-400); RED BLOOD COUNT 4.64 M/uL (4.2-5.4); WHITE BLOOD COUNT 9.74 K/uL (4.8-10.8)
[2017-09-04 09:42] LABS: CALCIUM 9.7 mg/dl (8.5-10.1); CREATININE 1.28 mg/dl (0.60-1.20); POTASSIUM 3.8 mmol/L (3.5-5.1)
[2017-09-04 09:55] LABS: BETA-HYDROXYBUTYRATE 1.12 mg/dL (0.2-2.81)
[2017-09-04] MEDS: METOCLOPRAMIDE HCL 10 MG TAB PO PRN ×3 (10:18→20:54)
[2017-09-04] MEDS ORDERED: INSULIN GLARGINE SOLOSTAR 100 UNITS/ML 3 ML PEN SC ONE (10:30)
[2017-09-04] MEDS ORDERED: NURSING VERBAL MED ORDER ONE (11:00)
[2017-09-04] MEDS: PROMETHAZINE HCL 25 MG TAB PO PRN ×2 (11:38→20:54)
[2017-09-04] MEDS ORDERED: GUAIFENESIN 600 MG TABCR PO ONE (11:45)
[2017-09-04] MEDS ORDERED: FLUCONAZOLE 100 MG TAB PO ONE (12:00)
[2017-09-04 14:49] VITALS: BP 112/64; PULSE 66; TEMP 36.7; O2SAT 96
[2017-09-04 14:53] VITALS: Ht 154.9 cm; Wt 103.5 kg
--- NOTE | 2017-09-04 15:17 | Hospitalist Progress Note ---
Hospitalist Progress Note Date of Service Sep 04, 2017. (Isi Liao PA-C) Subjective Pt evaluation today including: conversation w/ patient, physical exam, chart review, lab review, review of studies, review of inpatient medication list Patient seen and evaluated. No acute events overnight. Reporting eye tearing is improving. Continues to have a lot of sputum production and a significant cough. Reporting SOB with excessive coughing but still requiring O2. Encouraged to utilize incentive spirometry. States she does feel like she is improving but slowly. States she is an anxious person as well but reporting she is calmer now that she is beginning to feel better. Constitutional: No fever, No chills Respiratory: + cough, + sputum, + dyspnea on exertion Cardiovascular: No chest pain Abdomen: No pain, No nausea, No vomiting, No diarrhea, No constipation Musculoskeletal: No calf pain Female : No dysuria Psychiatric: No anxiety Skin: No rash (Isi Liao, NERISC) Medications Current Inpatient Medications Medications (Trade) Dose Ordered Sig/Prachi Route Start Time Stop Time Status Last Admin Dose Admin Ioversol (Optiray 320) 100 ml UD PRN IV 09/03/17 03:00 09/07/17 02:59 Acetaminophen (Tylenol Tab) 650 mg Q4H PRN PO 09/03/17 02:45 10/03/17 02:44 Al Hydrox/Mg Hydrox/Simethicone (Maalox Max Susp) 15 ml Q4H PRN PO 09/03/17 02:45 10/03/17 02:44 Magnesium Hydroxide (Milk Of Magnesia Susp) 30 ml Q12H PRN PO 09/03/17 02:45 10/03/17 02:44 Nitroglycerin (Nitrostat Tab) 0.4 mg UD PRN SL 09/03/17 02:45 10/03/17 02:44 Polyethylene (Miralax Powder Packet) 17 gm DAILY PRN PO 09/03/17 02:45 10/03/17 02:44 Clonazepam (Klonopin Tab) 1 mg TID PRN PO 09/03/17 02:45 10/03/17 02:44 09/04/17 08:34 1 MG Diclofenac Sodium (Voltaren 1% Top Gel) 1 appln QID EXT 09/03/17 09:00 10/03/17 08:59 09/04/17 13:06 1 APPLN Escitalopram Oxalate (Lexapro Tab) 20 mg QAM PO 09/03/17 09:00 10/03/17 08:59 09/04/17 08:23 20 MG Escitalopram Oxalate (Lexapro Tab) 10 mg DAILY PO 09/03/17 09:00 10/03/17 08:59 09/04/17 08:23 10 MG Hydrochlorothiazide (Hydrochlorothiazide Tab) 25 mg DAILY PRN PO 09/03/17 02:45 10/03/17 02:44 Levothyroxine Sodium (Synthroid Tab) 112 mcg DAILYBB PO 09/03/17 06:00 10/03/17 05:59 09/04/17 06:09 112 MCG Lisinopril (Zestril Tab) 10 mg QPM PO 09/03/17 21:00 10/03/17 20:59 09/03/17 21:05 10 MG Loratadine (Claritin Tab) 10 mg QAM PO 09/03/17 09:00 10/03/17 08:59 09/04/17 08:23 10 MG Metoclopramide HCl (Reglan Tab) 10 mg Q6H PRN PO 09/03/17 02:45 10/03/17 02:44 09/04/17 13:05 10 MG Metoprolol Tartrate (Lopressor Tab) 25 mg BID PO 09/03/17 09:00 10/03/17 08:59 09/04/17 08:24 25 MG Polyethylene (Miralax Powder Packet) 17 gm DAILY PO 09/03/17 09:00 10/03/17 08:59 09/03/17 08:07 17 GM Simvastatin (Zocor Tab) 40 mg HS PO 09/03/17 21:00 10/03/17 20:59 09/03/17 21:05 40 MG Ascorbic Acid (Vitamin C Tab) 500 mg QAM PO 09/03/17 09:00 10/03/17 08:59 09/04/17 08:24 500 MG Cholecalciferol (Vitamin D Tab) 4,000 inter.unit DAILY PO 09/03/17 09:00 10/03/17 08:59 09/04/17 08:23 4,000 INTER.UNIT Ferrous Sulfate (Feosol Tab) 325 mg HS PO 09/03/17 21:00 10/03/17 20:59 09/03/17 21:05 325 MG Pantoprazole Sodium (Protonix Tab) 40 mg QAM PO 09/03/17 09:00 10/03/17 08:59 09/04/17 08:24 40 MG Insulin Aspart (novoLOG ASPART) SLIDING SCALE G... ACHS SC 09/03/17 07:00 10/03/17 06:59 09/04/17 13:03 17 UNITS Glucose (Glucose 40% Gel) 15-30 GRAMS 15 GRAMS... UD PRN PO 09/03/17 04:45 10/03/17 04:44 Glucose (Glucose Chew Tab) 4-8 Tablets 4 Tabl... UD PRN PO 09/03/17 04:45 10/03/17 04:44 Dextrose (Dextrose 50% 50ML Syringe) 25-50ML OF 50% DW IV FOR... UD PRN IV 09/03/17 04:45 10/03/17 04:44 Glucagon (Glucagon Inj) 1 mg UD PRN SQ 09/03/17 04:45 10/03/17 04:44 Doxycycline Hyclate (Vibramycin Cap) 100 mg BID PO 09/03/17 09:00 09/10/17 08:59 09/04/17 08:24 100 MG Benzonatate (Tessalon Perles Cap) 100 mg TID PO 09/03/17 14:00 10/03/17 13:59 09/04/17 13:02 100 MG Insulin Glargine (Lantus Solostar Pen) 20 units DAILY SC 09/04/17 09:00 10/04/17 08:59 09/04/17 08:39 20 UNITS Promethazine HCl (Phenergan Tab) 25 mg Q4H PRN PO 09/04/17 11:00 10/04/17 10:59 09/04/17 11:38 25 MG Guaifenesin (Mucinex Contr Rel Tab) 1,200 mg Q12 PO 09/04/17 21:00 10/04/17 20:59 (Isi Liao, ANDRES) Objective Vital Signs Date Time Temp Pulse Resp B/P (MAP) Pulse Ox O2 Delivery O2 Flow Rate FiO2 09/04/17 14:49 36.7 66 24 112/64 (80) 96 Nasal Cannula 2.0 09/04/17 08:00 Nasal Cannula 2.0 09/04/17 07:06 36.6 60 18 118/73 (88) 94 3.0 09/04/17 00:00 Nasal Cannula 2.0 09/03/17 23:42 37.0 81 20 119/65 (83) 98 2.0 09/03/17 21:06 86 145/72 (96) 09/03/17 16:00 Nasal Cannula 2.0 09/03/17 15:42 36.9 76 18 154/92 (112) 97 Nasal Cannula 2.0 (Isi Liao PA-C) Physical Exam General Appearance: WD/WN, no apparent distress Eyes: sclerae normal, + pertinent finding (minimal periorbital erythema from frequent rubbing) ENT: hearing grossly normal, pharynx normal Neck: supple, no JVD, trachea midline Respiratory/Chest: lungs clear, normal breath sounds, no respiratory distress, no accessory muscle use Cardiovascular: regular rate, rhythm, no gallop, no murmur Abdomen: normal bowel sounds, non tender, no organomegaly Extremities: no pedal edema, no calf tenderness Neurologic/Psychiatric: alert, oriented x 3 Skin: normal color, warm/dry (Isi Liao, DARLENE-C) Laboratory Results Last 24 Hours Test 09/03/17 16:05 09/03/17 20:10 09/03/17 20:36 09/04/17 07:19 Bedside Glucose 313 mg/dl 341 mg/dl 295 mg/dl Troponin I < 0.015 ng/ml Test 09/04/17 08:51 09/04/17 11:23 White Blood Count 9.74 K/uL Red Blood Count 4.64 M/uL Hemoglobin 14.4 g/dL Hematocrit 41.8 % Mean Corpuscular Volume 90.1 fL Mean Corpuscular Hemoglobin 31.0 pg Mean Corpuscular Hemoglobin Concent 34.4 g/dl RDW Standard Deviation 42.8 fL RDW Coefficient of Variation 13.1 % Platelet Count 272 K/uL Mean Platelet Volume 10.0 fL Sodium Level 133 mmol/L Potassium Level 3.8 mmol/L Chloride Level 96 mmol/L Carbon Dioxide Level 29 mmol/L Anion Gap 8.0 mmol/L Blood Urea Nitrogen 21 mg/dl Creatinine 1.28 mg/dl Est Creatinine Clear Calc Drug Dose 57.5 ml/min Estimated GFR () 56.1 Estimated GFR (Non- 48.4 BUN/Creatinine Ratio 16.0 Random Glucose 356 mg/dl Calcium Level 9.7 mg/dl Beta-Hydroxybutyric Acid 1.12 mg/dL Bedside Glucose 310 mg/dl (Isi Liao, PA-C) Assessment and Plan This is a 52 yo f that is suffering from acute hypoxic Acute Hypoxic Respiratory Failure 2/2 Likely Atelectasis: - CT without signs of PE and possible findings that may support an atypical PNA - Patient takes shallow breaths due to frequent coughing and hypoxia is likely due to this - encouraged to use incentive spirometry - Has good air flow and no wheezing noted; Reports Duonebs without relief; having frequent post-nasal drip but no edema of airways noted - Doxycycline 100 mg BID and can use Tessalon perles TID -- Diflucan x 1 dose for vaginal candidiasis - Mucinex BID Depression/ Anxiety: - Clonazepam 1 mg prn TID and Lexapro 30 mg daily HTN /Hyperlipidemia: - Lisinopril 10 mg daily, HCTZ 25 mg daily PRN, and Metoprolol 25 mg BID -- Likely symptoms from acute URI symptoms - but continue to monitor for side effect of Lisinopril - Simvastatin 40 mg daily DMII with Hyperglycemia: A1c 9 - Likely from steroids received in ED and acute illness - Reporting GI effects with Metformin and tried Prandin but insurance will not cover - administrative office specialist discussed with patient - possible Glimiperide as oral option - Continue SSI and continue to monitor - Reglan and Phenergan PRN for gastroparesis Hypothyroidism - Levothyroxine 112 mcg daily DVT Prophylaxis: SCDs Disposition: - Continue to wean O2 and utilize incentive spirometry; pending O2 wean likely D /C next 1-2 days (Isi Liao, PA-C) i personally examined pt and verified all [place]adi[place] points w Sammy Liao PAC feeling better breathing easier vitals noted nad breathing unlabored eyes less red and watery atypicals/bronchitis/hypoxia - improving. doxy, time, supportive care uncontrolled hyperglycemia - predominantly uncontrolled due to steroids, anticipate this to wear off soon since no ongoing steroids. physiologic stress likely playing a role as well. ongoing insulin management (Real Roberto D.O.)
[2017-09-04] MEDS: FERROUS SULFATE 325 MG TAB PO SCH (20:44)
[2017-09-04] MEDS: GUAIFENESIN 600 MG TABCR PO SCH (20:45)
[2017-09-04] MEDS: SIMVASTATIN 40 MG TAB PO SCH (20:46)
[2017-09-04] MEDS: LISINOPRIL 10 MG TAB PO SCH (20:51)
[2017-09-04 23:43] VITALS: BP 132/63; PULSE 70; TEMP 36.7; O2SAT 98
[2017-09-05] MEDS: LEVOTHYROXINE 112 MCG TAB PO SCH (05:46)
[2017-09-05 07:34] VITALS: BP_SYST 100; BP_SYST 90; BP_DIAS 50; BP_DIAS 65; PULSE 71; TEMP 36.6; O2SAT 99
[2017-09-05] MEDS: METOPROLOL TARTRATE 25 MG TAB PO SCH (08:05)
[2017-09-05] MEDS: POLYETHYLENE (MIRALAX) 17 GM PACK PO SCH (08:05)
[2017-09-05] MEDS: GUAIFENESIN 600 MG TABCR PO SCH (08:07)
[2017-09-05] MEDS: ESCITALOPRAM OXALATE 10 MG TAB PO SCH (08:07)
[2017-09-05] MEDS: DOXYCYCLINE HYCLATE 100 MG CAP PO SCH (08:07)
[2017-09-05] MEDS: BENZONATATE 100MG CAP PO SCH ×2 (08:07→13:33)
[2017-09-05] MEDS: ASCORBIC ACID 500 MG TAB PO SCH (08:07)
[2017-09-05] MEDS: ESCITALOPRAM OXALATE 20 MG TAB PO SCH (08:07)
[2017-09-05] MEDS: LORATADINE 10 MG TAB PO SCH (08:07)
[2017-09-05] MEDS: PANTOprazole SOD 40 MG TAB PO SCH (08:07)
[2017-09-05] MEDS: DICLOFENAC SOD 1% GEL 100 GM TUBE EXT SCH ×2 (08:07→12:55)
[2017-09-05] MEDS: CHOLECALCIFEROL 1000 INTER.UNIT TAB PO SCH (08:08)
[2017-09-05] MEDS: INSULIN ASPART 100 UNITS/ML 3 ML PEN SC SCH ×2 (08:12→12:54)
[2017-09-05] MEDS: INSULIN GLARGINE SOLOSTAR 100 UNITS/ML 3 ML PEN SC SCH (08:13)
[2017-09-05] MEDS: CLONAZEPAM 1 MG TAB PO PRN (08:19)
[2017-09-05] MEDS ORDERED: DXY100 PO (10:53)
--- NOTE | 2017-09-05 11:04 | Discharge Instructions ---
Discharge Instructions Date of Service Sep 05, 2017. Admission Reason for Admission: Acute Respiratory Failure W/ Hypoxia, Chest Pain Discharge Discharge Diagnosis / Problem: severe bronchitis Discharge Goals Goal(s): Improve disease control, Diagnostic testing, Therapeutic intervention Activity Recommendations Activity Limitations: resume your previous activity . Instructions / Follow-Up Instructions / Follow-Up bronchitis -fortunately this is getting better. while it was likely a virus that started the whole process, your severity of illness and the fact that you weren't getting better until we started the doxycycline suggests a bacterial overgrowth -we'll need to treat w doxycycline for 9 more days to round out 14 doses (7 days ) -- your next dose is tonight uncontrolled type 2 diabetes -your A1c, while normally reasonable in the low 7's, was up at 9.5, suggesting that your current level of sugar control was actually your current "normal" -since your PCP was adding the prandin for you but you haven't started it yet, we won't add a new med at this time, but if for some reason the prandin wouldn' t be covered or you don't tolerate it, call your PCP right away for a different medication recommendation -follow through with the 24 hour urine testing in the next 1-2 weeks at the most , because while cushings is quite rare, if you actually had it that would be a complete "dealbreaker" in your metabolic control, and the longer it would be untreated the more you would accumulate permanent consequences to your health ---assuming you don't have cushings, then far and away the most common reason for a type 2 diabetic to get out of control is more intake of bready, sugary, starchy carbs than they realized they were eating -to identify what foods are affecting you, check a sugar about 1.5-2hrs after you eat. anything that bumps your sugar above 150 should be revisited for how much starch/carb/sugar was in it, and then work to reduce or better yet avoid it in the future -remember that "why we care" is that high sugars clog arteries - and while the most famous complications are kidney disease, blindness, and numb/painful feet (from clogging arteries in the kidneys, eyes, and nerves to the extremities ), the most worrisome and common complications are actually heart attacks and strokes (from clogging arteries to your heart and brain) - typically anything above about 150 is in a range that damage can start to occur, and the higher you run / the longer you run high the more damage is getting done -also remember that (again, if you don't glove turner and former automatic to have cushings disease) when you eat something that raises your sugar, your body has to make a lot of extra insulin in response. when you make that extra insulin, your muscles " want more" (almost like getting addicted) for the next time. so in addition to clogging arteries, anytime you eat something that raises your sugar you "make yourself more of a diabetic" -the beautiful thing about this, however, is that you can take total control of the situation by looking at eating habits, and working to get rid of the simple/starchy/bready/potato heavy carbs and sugars -- and basically anything that you eat that raises your sugar on the 2 hour after you eat check is something that the less of it you eat, the healthier you'll be! -much easier, but just as important, is that about 30 minutes of light cardiovascular exercise does about the same thing to your metabolism as a dose of metformin (only without the terrible side effects!) - exercise not only caldera sugar, but actually makes your muscles more sensitive to the insulin your pancreas produces. and unlike the metformin which can wear off, cumulative effects of exercise add up over time and help you fundamentally rewrite your metabolism (as a rule of thumb, anytime you see your A1c go up, or anytime you need more medication for your diabetes, think first "ok what have i not been doing right with eating and exercise habits" because that is almost always the case) Current Hospital Diet Patient's current hospital diet: AHA Diet (Heart Healthy), Diabetes Type 2 Diet Discharge Diet Recommended Diet: AHA Diet (Heart Healthy), Diabetes Type 2 Diet Pending Studies Studies pending at discharge: no Laboratory Results Hemoglobin A1c Test 09/03/17 05:29 Range/Units Estimated Average Glucose 226 mg/dl Hemoglobin A1c 9.5 H 4.5-5.6 % Medical Emergencies . Who to Call and When: Medical Emergencies: If at any time you feel your situation is an emergency, please call 911 immediately. . Non-Emergent Contact Non-Emergency issues call your: Primary Care Provider . . "Provider Documentation" section prepared by Real Roberto. . VTE Core Measure Inpt VTE Proph given/why not?: SCD's
[2017-09-05 12:18] VITALS: BP 90/50; PULSE 71; TEMP 36.6; O2SAT 99
[2017-09-05 14:49] VITALS: BP 147/84; PULSE 77; TEMP 36.8; O2SAT 97
--- NOTE | 2017-09-05 19:08 | Discharge Summary ---
Discharge Summary Date of Service Sep 05, 2017. Discharge Summary Admission Date: Sep 03, 2017 at 02:48 Discharge Date: Sep 05, 2017 Discharge Disposition: Home Principal Diagnosis: bronchitis Problems/Secondary Diagnoses: (1) ANXIETY STATE NOS Status: Chronic Immunizations: Have You Had Influenza Vaccine: N/A History of Tetanus Vaccine?: utd History of Pneumococcal: No History of Hepatitis B Vaccine: No Procedures: CT ANGIOGRAM OF THE CHEST CLINICAL HISTORY: Shortness of breath. Hypoxia. COMPARISON STUDY: Chest x-ray dated 11/04/2016 , CT scan of the abdomen pelvis dated 06/15/2017 TECHNIQUE: Following the IV administration of 92 mL of Optiray-320, CT angiogram of the thorax was performed from the thoracic inlet to the lung bases utilizing the pulmonary embolus protocol. Images are reviewed in the axial, sagittal, and coronal planes. IV contrast was administered without complication. MIP imaging was performed. A dose lowering technique was utilized adhering to the principles of ALARA. CT DOSE: 616.61 mGy.cm FINDINGS: There is hepatic steatosis. A 23 mm left hepatic lobe lesion may represent focal fatty sparing. No pathologically enlarged axillary mediastinal or hilar lymph nodes were visualized. There was no evidence of thoracic aortic dilatation. There were no pulmonary artery filling defects to indicate acute pulmonary embolism. No pleural effusions are visualized. There is subtle groundglass opacities with a mosaic pattern. This may indicate areas of air trapping. IMPRESSION: 1. No evidence of acute pulmonary embolism 2. Hepatic steatosis with an area of presumed focal fatty sparing within the left hepatic lobe. 3. Mild mosaic groundglass attenuation the lungs, likely related to airway disease or less likely small vessel disease. Electronically signed by: Tim Ulrich M.D. 09/03/2017 6:59 AM Last Resulted CBC 09/04/17 08:51 Last Resulted BMP 09/04/17 08:51 Hemoglobin A1c Test 09/03/17 05:29 Range/Units Estimated Average Glucose 226 mg/dl Hemoglobin A1c 9.5 H 4.5-5.6 % Medication Reconciliation New Medications: Doxycycline Hyclate (Doxycycline Hyclate) 100 Mg Cap 100 MG PO BID, #9 CAP Continued Medications: Ascorbic Acid (Vitamin C) 500 Mg Tab 500 MG PO QAM Cholecalciferol (Vitamin D3) 2,000 Unit Tab 4000 UNITS PO DAILY Clonazepam (Klonopin) 1 Mg Tab 1 MG PO TID PRN for Anxiety, TAB Diclofenac Sod (Voltaren) 100 Appln/100 Gm Gel 1 APPLN EXT QID for 30 Days, #120 DOSE Escitalopram Oxalate (Escitalopram Oxalate) 20 Mg Tab 20 MG PO QAM TAKE WITH 10MG = 30MG DAILY Escitalopram Oxalate (Lexapro) 10 Mg Tab 10 MG PO DAILY, TAB TAKE WITH 20MG = 30 MG DAILY Ferrous Sulfate (Iron) 325 Mg Tab 325 MG PO HS Hydrochlorothiazide (Hydrochlorothiazide) 25 Mg Tab 25 MG PO DAILY PRN for Swelling Hydrocodone W/ Homatropine (Hycodan 5/1.5MG 5 Ml) 1 Syp Syp 5 ML PO Q6H PRN for Cough, #60 ML Levothyroxine Sodium (Levothyroxine Sodium) 112 Mcg Tab 112 MCG PO DAILY Lisinopril (Lisinopril) 10 Mg Tab 10 MG PO QPM Loratadine (Claritin) 10 Mg Tab 10 MG PO QAM Metformin Hcl (Glucophage) 500 Mg Tab 500 MG PO BID, TAB Metoclopramide (Reglan) 10 Mg Tab 10 MG PO UD PRN for GASTROPARESIS, #6 TAB NAUSEA Metoprolol Tartrate (Lopressor) (Lopressor) 25 Mg Tab 25 MG PO BID, TAB Omeprazole (Prilosec) 40 Mg Cap 40 MG PO QAM Polyethylene (Miralax) 17 Gm Pow 17 GM PO DAILY Simvastatin (Simvastatin) 40 Mg Tab 40 MG PO HS Hospital Course This is a 52 yo f that is suffering from acute hypoxic Acute Hypoxic Respiratory Failure 2/2 Likely Atelectasis: - CT without signs of PE and possible findings that may support an atypical PNA - improving w treatment for atypicals - Doxycycline 100 mg BID as outpt -- was given Diflucan x 1 dose for vaginal candidiasis - stable for home Depression/ Anxiety: - Clonazepam 1 mg prn TID and Lexapro 30 mg daily HTN /Hyperlipidemia: - Lisinopril 10 mg daily, HCTZ 25 mg daily PRN, and Metoprolol 25 mg BID -- Likely symptoms from acute URI symptoms - but continue to monitor for side effect of Lisinopril - Simvastatin 40 mg daily DMII with Hyperglycemia: A1c 9.5 - outpt med management by PCP - EXTENSIVE discussion on lifestyle - she notes that she's being worked up for cushings - encouraged to do this maddie since if she truly had cushings it would be entirely different management Hypothyroidism - Levothyroxine 112 mcg daily DVT Prophylaxis: SCDs Disposition: - stable for home Total Time Spent: Greater than 30 minutes This includes examination of the patient, discharge planning, medication reconciliation, and communication with other providers. Discharge Instructions Please refer to the electronic Patient Visit Report (Discharge Instructions) for additional information. Additional Copies To Marcie Hernández
== END 2017-09-05 16:18 | disposition home or self-care (01) | DRG 193 ==
LOC: C.EDB 23:48 → C.2E 09-03 02:48 → ENRESERV 09-03 02:59 → C.MED 09-03 15:02
PROVIDERS: ADMIT Student in an Organized Health Care Education/Training Program; ATTEND Family Medicine
DX: J18.9 Pneumonia, unspecified organism (principal); J96.01 Acute respiratory failure with hypoxia; J40 Bronchitis, not specified as acute or chronic; R09.89 Other specified symptoms and signs involving the circulatory and respiratory systems; T40.2X5A Adverse effect of other opioids, initial encounter; F41.9 Anxiety disorder, unspecified; E11.65 Type 2 diabetes mellitus with hyperglycemia; T38.0X5A Adverse effect of glucocorticoids and synthetic analogues, initial encounter; B37.3 Candidiasis of vulva and vagina; E11.43 Type 2 diabetes mellitus with diabetic autonomic (poly)neuropathy; E03.9 Hypothyroidism, unspecified; E78.5 Hyperlipidemia, unspecified; I10 Essential (primary) hypertension; K21.9 Gastro-esophageal reflux disease without esophagitis; D50.9 Iron deficiency anemia, unspecified; F32.9 Major depressive disorder, single episode, unspecified; Z79.899 Other long term (current) drug therapy; Z79.84 Long term (current) use of oral hypoglycemic drugs; Z83.3 Family history of diabetes mellitus; Z82.49 Family history of ischemic heart disease and other diseases of the circulatory system; Z84.1 Family history of disorders of kidney and ureter

== ENCOUNTER 2017-09-25 15:16 | Emergency (ER) | payer OTHER ==
[~2017-09-25 15:16] MED LIST changes: -ASCO-63 PO; -CHOL20007 PO; -CLON1TAB3 PO; +DXY100 PO; -ESCI1TAB9 PO; -FERR1TAB23 PO; -HYDR25TA5 PO; -LEVO112T4 PO; -LISI-461 PO; -LORA10TA6 PO; -LXP/20 PO; -METO-157 PO; -METO25TA56 PO; -OMEP40CA41 PO; -ZCR40 PO
--- NOTE | 2017-09-25 15:49 | EMERGENCY ROOM VISIT NOTE ---
History First contact with patient: 15:31 Chief Complaint: MENTAL HEALTH EVALUATION Stated Complaint: MHID History of Present Illness The patient is a 52 year old female who presents to the Emergency Room with police for a mental health evaluation. Pt was being seen at [facility] by a provider who was concerned she was having a "mental breakdown". Pt was initially voluntarily willing to go to [place]. Then when provider called police who stated they couldn't transport her to [place], she became upset, refused to come to [facility], so was made a 302 by police. Pt denies any recent illness, trauma, or change in meds. Pt unwilling to answer many questions, stating "Get me out of here! They lied to me! I wanna go to [place]!". Source of History: patient History Limited By: poor cooperation Position: other (Mental Health ) Quality: other (Mental Health Evaluation) Note: Denies any recent trauma. Review of Systems See HPI for pertinent positives & negatives. A total of 10 systems reviewed and were otherwise negative. 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 (20) OSTEOARTHROS NOS-UNSPEC (21) Panic disorder with agoraphobia (22) PTSD (post-traumatic stress disorder) (23) Puncture wound of left foot (24) Puncture wound of left foot (25) Thumb fracture Surgical Problems: (1) Hx of section Family History Diabetes mellitus FH: heart disease FHx: gallbladder disease Hypertension Kidney disease Kidney stones Seizures Social History Smoking Status: Unknown if Ever Smoked Alcohol Use: occasionally Drug Use: none Marital Status: Housing Status: lives with family Occupation Status: unemployed Current/Historical Medications Scheduled Ascorbic Acid (Vitamin C), 500 MG PO QAM Cholecalciferol (Vitamin D3), 4,000 UNITS PO DAILY Diclofenac Sod (Voltaren), 1 APPLN EXT QID Doxycycline Hyclate (Doxycycline Hyclate), 100 MG PO BID Escitalopram Oxalate (Escitalopram Oxalate), 20 MG PO QAM Escitalopram Oxalate (Lexapro), 10 MG PO DAILY Ferrous Sulfate (Iron), 325 MG PO HS Insulin Glargine (Lantus Solostar), 13 UNITS SC DAILY Insulin Lispro (Human) (Humalog Kwikpen), 4-6 UNITS SC TIDM Levothyroxine Sodium (Levothyroxine Sodium), 112 MCG PO DAILY Lisinopril (Lisinopril), 10 MG PO QPM Loratadine (Claritin), 10 MG PO QAM Metoprolol Tartrate (Lopressor) (Lopressor), 25 MG PO BID Omeprazole (Prilosec), 40 MG PO QAM Polyethylene (Miralax), 17 GM PO DAILY Simvastatin (Simvastatin), 40 MG PO HS Scheduled PRN Clonazepam (Klonopin), 1 MG PO TID PRN for Anxiety Hydrochlorothiazide (Hydrochlorothiazide), 25 MG PO DAILY PRN for Swelling Hydrocodone W/ Homatropine (Hycodan 5/1.5MG 5 Ml), 5 ML PO Q6H PRN for Cough Metoclopramide (Reglan), 10 MG PO UD PRN for GASTROPARESIS Physical Exam Vital Signs Date Time Temp Pulse Resp B/P (MAP) Pulse Ox O2 Delivery O2 Flow Rate FiO2 09/25/17 22:12 95 142/61 98 09/25/17 19:17 101 22 96 Room Air 09/25/17 18:02 22 Room Air 09/25/17 15:57 37.1 72 20 138/59 95 Room Air 09/25/17 15:37 Room Air Physical Exam GENERAL: alert, well appearing, well nourished, no distress, non-toxic, obese, yelling and uncooperative NECK: supple, no nuchal rigidity, no adenopathy, non-tender LUNGS: Clear to auscultation. Normal chest wall mechanics HEART: no murmurs, S1 normal and S2 normal ABDOMEN: abdomen soft, non-tender, normo-active bowel sounds, no masses, no rebound or guarding. SKIN: no rashes and no bruising UPPER EXTREMITIES: upper extremities are grossly normal. LOWER EXTREMITIES: No pitting edema. NEURO EXAM: Normal sensorium, cranial nerves II-XII grossly intact, normal speech, no gross weakness of arms, no gross weakness of legs. Gross sensation intact. Medical Decision & Procedures Laboratory Results 09/25/17 16:15 Red Blood Count 4.53, Mean Corpuscular Volume 88.5, Mean Corpuscular Hemoglobin 30.5, Mean Corpuscular Hemoglobin Concent 34.4, Mean Platelet Volume 10.1, Neutrophils (%) (Auto) 42.1, Lymphocytes (%) (Auto) 49.5, Monocytes (%) (Auto) 6.0, Eosinophils (%) (Auto) 1.8, Basophils (%) (Auto) 0.6, Neutrophils # (Auto) 2.09, Lymphocytes # (Auto) 2.46, Monocytes # (Auto) 0.30, Eosinophils # (Auto) 0.09, Basophils # (Auto) 0.03 09/25/17 16:15 Test 09/25/17 15:51 09/25/17 16:15 09/25/17 18:25 Bedside Glucose 146 mg/dl (70-90) White Blood Count 4.97 K/uL (4.8-10.8) Red Blood Count 4.53 M/uL (4.2-5.4) Hemoglobin 13.8 g/dL (12.0-16.0) Hematocrit 40.1 % (37-47) Mean Corpuscular Volume 88.5 fL (80-100) Mean Corpuscular Hemoglobin 30.5 pg (25-34) Mean Corpuscular Hemoglobin Concent 34.4 g/dl (32-36) Platelet Count 198 K/uL (130-400) Mean Platelet Volume 10.1 fL (7.4-10.4) Neutrophils (%) (Auto) 42.1 % Lymphocytes (%) (Auto) 49.5 % Monocytes (%) (Auto) 6.0 % Eosinophils (%) (Auto) 1.8 % Basophils (%) (Auto) 0.6 % Neutrophils # (Auto) 2.09 K/uL (1.4-6.5) Lymphocytes # (Auto) 2.46 K/uL (1.2-3.4) Monocytes # (Auto) 0.30 K/uL (0.11-0.59) Eosinophils # (Auto) 0.09 K/uL (0-0.5) Basophils # (Auto) 0.03 K/uL (0-0.2) RDW Standard Deviation 42.4 fL (36.4-46.3) RDW Coefficient of Variation 13.2 % (11.5-14.5) Immature Granulocyte % (Auto) 0.0 % Immature Granulocyte # (Auto) 0.00 K/uL (0.00-0.02) Anion Gap 5.0 mmol/L (3-11) Estimated GFR () 79.4 Estimated GFR (Non- 68.5 BUN/Creatinine Ratio 13.1 (10-20) Calcium Level 9.9 mg/dl (8.5-10.1) Total Bilirubin 0.6 mg/dl (0.2-1) Direct Bilirubin 0.1 mg/dl (0-0.2) Aspartate Amino Transf (AST/SGOT) 51 U/L (15-37) Alanine Aminotransferase (ALT/SGPT) 61 U/L (12-78) Alkaline Phosphatase 83 U/L (45-117) Total Protein 8.1 gm/dl (6.4-8.2) Albumin 4.0 gm/dl (3.4-5.0) Thyroid Stimulating Hormone (TSH) 0.721 uIu/ml (0.300-4.500) Ethyl Alcohol mg/dL < 3.0 mg/dl (0-3) Urine Color YELLOW Urine Appearance CLEAR (CLEAR) Urine pH 7.5 (4.5-7.5) Urine Specific [place] 1.011 (1.000-1.030) Urine Protein NEG (NEG) Urine Glucose (UA) NEG (NEG) Urine Ketones NEG (NEG) Urine Occult Blood NEG (NEG) Urine Nitrite NEG (NEG) Urine Bilirubin NEG (NEG) Urine Urobilinogen NEG (NEG) Urine Leukocyte Esterase SMALL (NEG) Urine WBC (Auto) 5-10 /hpf (0-5) Urine RBC (Auto) 5-10 /hpf (0-4) Urine Hyaline Casts (Auto) 1-5 /lpf (0-5) Urine Epithelial Cells (Auto) >30 /lpf (0-5) Urine Bacteria (Auto) NEG (NEG) Urine Opiates Screen NEG (NEG) Urine Methadone, Qualitative NEG (NEG) Urine Barbiturates NEG (NEG) Urine Phencyclidine (PCP) Level NEG (NEG) Ur Amphetamine/Methamphetamine NEG (NEG) MDMA (Ecstasy) Screen NEG (NEG) Urine Benzodiazepines Screen NEG (NEG) Urine Cocaine Metabolite NEG (NEG) Urine Marijuana (THC) NEG (NEG) Laboratory results per my review. Medications Administered Medications (Trade) Dose Ordered Sig/Prachi Route Start Time Stop Time Status Last Admin Dose Admin Clonazepam (Klonopin Tab) 1 mg NOW ONCE PO 09/25/17 19:15 09/25/17 19:16 DC 09/25/17 19:15 1 MG Olanzapine (Zyprexa Zydis Od Tab) 5 mg NOW STAT PO 09/25/17 20:38 09/25/17 20:40 DC 09/25/17 20:38 5 MG ED Course 194: Pt seen by psych registered nurse hh case manager, voluntary signed. Medical Decision Differential diagnosis: Etiologies such as mood disorder, infection, hypoglycemia, electrolyte abnormalities, cardiac sources, intracerebral event, toxicologic, neurologic, as well as others were entertained. I do not suspect additional trauma or infection contributing to symptoms. Medication Reconcilliation Current Medication List: was personally reviewed by me Blood Pressure Screening Patient's blood pressure: Elevated blood pressure Blood pressure disposition: Elevated BP felt to be situational Impression Primary Impression: Depression Additional Impression: Acute anxiety Departure Information Referrals Marcie Hernández (PCP) Patient Instructions My [facility] Problem Qualifiers Primary Impression: Depression Depression Type: major depressive disorder Major depression recurrence: recurrent Active/Remission status: currently active Major depression episode severity: moderate Qualified Codes: F33.1 - Major depressive disorder, recurrent, moderate
[2017-09-25 15:57] VITALS: TEMP 37.1
[2017-09-25] MEDS ORDERED: INSU100I2 SC (16:23)
[2017-09-25] MEDS ORDERED: INSDGIPEN SC (16:23)
[2017-09-25 16:26] LABS: BASO % 0.6 %; BASO ABS # 0.03 K/uL (0-0.2); EOS % 1.8 %; EOS ABS # 0.09 K/uL (0-0.5); HEMATOCRIT 40.1 % (37-47); HEMOGLOBIN 13.8 g/dL (12.0-16.0); LYMPH % 49.5 %; LYMPH ABS # 2.46 K/uL (1.2-3.4); MEAN CELL VOLUME 88.5 fL (80-100); MEAN CORPUSCULAR HEMOGLOBIN 30.5 pg (25-34); MEAN CORPUSCULAR HGB CONC 34.4 g/dl (32-36); MEAN PLATELET VOLUME 10.1 fL (7.4-10.4); NEUT % 42.1 %; NEUT ABS # 2.09 K/uL (1.4-6.5); PLATELET COUNT 198 K/uL (130-400); RED CELL DISTRIBUTION WIDTH CV 13.2 % (11.5-14.5); RED CELL DISTRIBUTION WIDTH SD 42.4 fL (36.4-46.3); WHITE BLOOD COUNT 4.97 K/uL (4.8-10.8)
[2017-09-25 16:47] LABS: ALT/SGPT 61 U/L (12-78); AST/SGOT 51 U/L (15-37); BLOOD UREA NITROGEN 13 mg/dl (7-18); CALCIUM 9.9 mg/dl (8.5-10.1); CARBON DIOXIDE 30 mmol/L (21-32); CREATININE 0.96 mg/dl (0.60-1.20); GLUCOSE 140 mg/dl (70-99); SODIUM 138 mmol/L (136-145)
[2017-09-25 16:58] LABS: ALKALINE PHOSPHATASE 83 U/L (45-117); TOTAL PROTEIN 8.1 gm/dl (6.4-8.2)
[2017-09-25] MEDS ORDERED: CLONAZEPAM 1 MG TAB PO STA (19:00)
[2017-09-25] MEDS ORDERED: CLONAZEPAM 0.5 MG TAB PO ONE ×2 (19:15)
[2017-09-25] MEDS ORDERED: LORAZEPAM 1 MG TAB SL STA (20:18)
[2017-09-25] MEDS ORDERED: OLANZAPINE ZYDIS 5 MG ORALLY DIS. TAB PO STA (20:38)
[2017-09-25 22:12] VITALS: BP 142/61; PULSE 95; O2SAT 98
[2018-01-16] MEDS ORDERED: OXYC-737 PO (16:12)
[2018-03-26] MEDS ORDERED: ESCI1TAB9 PO (02:07)
[2018-03-26] MEDS ORDERED: CLON1TAB4 PO (02:16)
[2018-03-26] MEDS ORDERED: METO-157 PO (13:37)
[2018-03-26] MEDS ORDERED: ASCO-63 PO (15:10)
[2018-03-26] MEDS ORDERED: FERR1TAB23 PO (16:15)
[2018-03-26] MEDS ORDERED: INSU100I23 SQ (17:30)
[2018-03-26] MEDS ORDERED: INSU100I2 SQ (17:30)
[2018-03-26] MEDS ORDERED: EFFSR75 PO (17:30)
[2018-03-26] MEDS ORDERED: PHEN-876 PO (17:39)
[2018-03-26] MEDS ORDERED: CEPH-571 PO (17:39)
[2018-03-26] MEDS ORDERED: PROM25TA9 PO (19:22)
[2018-03-26] MEDS ORDERED: LINA1CAP PO (19:36)
[2018-03-26] MEDS ORDERED: ZCR40 PO (20:55)
[2018-03-26] MEDS ORDERED: OMEP40CA41 PO (20:55)
[2018-03-26] MEDS ORDERED: HYDR25TA5 PO (20:55)
[2018-03-26] MEDS ORDERED: LORA10TA6 PO (20:55)
[2018-03-26] MEDS ORDERED: LXP/20 PO (20:55)
[2018-03-26] MEDS ORDERED: LEVO112T4 PO (21:56)
[2018-03-26] MEDS ORDERED: LISI-461 PO (21:58)
[2018-03-26] MEDS ORDERED: CHOL20007 PO (21:59)
[2018-03-26] MEDS ORDERED: METO25TA56 PO (23:24)
== END 2017-09-25 22:15 ==
LOC: EDBD 15:16 → C.EDA 15:18
DX: F32.9 Major depressive disorder, single episode, unspecified (principal); F41.8 Other specified anxiety disorders; I10 Essential (primary) hypertension; E11.9 Type 2 diabetes mellitus without complications; E78.5 Hyperlipidemia, unspecified; E03.9 Hypothyroidism, unspecified; D50.9 Iron deficiency anemia, unspecified; K22.6 Gastro-esophageal laceration-hemorrhage syndrome; M19.90 Unspecified osteoarthritis, unspecified site; Z87.81 Personal history of (healed) traumatic fracture; Z79.4 Long term (current) use of insulin; Z79.899 Other long term (current) drug therapy; Z83.3 Family history of diabetes mellitus; Z82.49 Family history of ischemic heart disease and other diseases of the circulatory system; Z83.79 Family history of other diseases of the digestive system; Z84.1 Family history of disorders of kidney and ureter; Z82.0 Family history of epilepsy and other diseases of the nervous system

== ENCOUNTER 2017-12-11 16:55 | Emergency (ER) | payer OTHER ==
[~2017-12-11] VITALS: Ht 154.9 cm; Wt 105.2 kg
[~2017-12-11 16:55] MED LIST changes: +ASCO-63 PO; +CHOL20007 PO; +CLON1TAB3 PO; +ESCI1TAB9 PO; +FERR1TAB23 PO; -GLC/500 PO; +HYDR25TA5 PO; +INSDGIPEN SC; +INSU100I2 SC; +LEVO112T4 PO; +LISI-461 PO; +LORA10TA6 PO; +LXP/20 PO; +METO-157 PO; +METO25TA56 PO; +OMEP40CA41 PO; +ZCR40 PO
[2017-12-11 17:10] VITALS: TEMP 37.1; Ht 154.9 cm; Wt 105.2 kg
[2017-12-11] MEDS ORDERED: SODIUM CHLORIDE 0.9% 1000ML 1,000 ML IV STA (18:15)
[2017-12-11] MEDS ORDERED: CLINDAMYCIN 600 MG/54 ML D5W IV ONE (18:15)
[2017-12-11] MEDS ORDERED: KETOROLAC TROMETHAMINE 30 MG/ML VIAL IV STA (18:15)
[2017-12-11] MEDS ORDERED: CEFTRIAXONE SOD INJ 1 GM ADDVIAL IV STA (18:15)
[2017-12-11] MEDS ORDERED: MoRPHine SULFATE 10 MG/ML CARP/VIAL IV STA ×2 (18:59→21:19)
[2017-12-11] MEDS ORDERED: METOCLOPRAMIDE HCL INJ 5 MG/ML 2 ML VIAL IV STA (18:59)
--- NOTE | 2017-12-11 18:59 | EMERGENCY ROOM VISIT NOTE ---
History Report prepared by Rosa Elena: Lashanda Harvey Under the Supervision of: Dr. Cheko Eddy M.D. First contact with patient: 18:00 Chief Complaint: SWELLING TO EXTREMITY Stated Complaint: LEFT HAND PAIN- REFERRED History of Present Illness The patient is a 52 year old female who presents to the Emergency Room with complaints of constant swelling to her left hand starting today. The patient states that she had an IV in at [facility] and pulled her IV out on her own because her treatment there was so bad. She reports that since then her hand started to swell and an achy pain radiated across her hand, down her fingers, and up her arm. She states that the pain is worse with movement and being touched. The patient states that her pain is a 7/10 in severity when she lays still and a 10/10 in severity when she moves. The patient denies taking anything for pain and notes that she was sent into the ED by her PCP. Source of History: patient Onset: today Position: hand (left) Symptom Intensity: 7/10 Quality: ache Timing: constant Modifying Factors (Worsening): movement, other (touch) Review of Systems See HPI for pertinent positives & negatives. A total of 10 systems reviewed and were otherwise negative. 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 (22) PTSD (post-traumatic stress disorder) (23) Puncture wound of left foot (24) Puncture wound of left foot (25) Thumb fracture Surgical Problems: (1) Hx of section Family History Diabetes mellitus FH: heart disease FHx: gallbladder disease Hypertension Kidney disease Kidney stones Seizures Social History Smoking Status: Never Smoker Alcohol Use: occasionally Drug Use: none Marital Status: Housing Status: lives with family Occupation Status: unemployed Current/Historical Medications Scheduled Ascorbic Acid (Vitamin C), 500 MG PO QAM Cephalexin Monohydrate (Keflex), 500 MG PO QID Cholecalciferol (Vitamin D3), 4,000 UNITS PO DAILY Clindamycin Hcl (Cleocin), 300 MG PO QID Escitalopram Oxalate (Escitalopram Oxalate), 20 MG PO QAM Escitalopram Oxalate (Lexapro), 10 MG PO DAILY Ferrous Sulfate (Iron), 325 MG PO HS Insulin Lispro (Human) (Humalog Kwikpen), 20 UNITS SC TIDM Levothyroxine Sodium (Levothyroxine Sodium), 112 MCG PO DAILY Linaclotide (Linzess), 145 MG PO QAM Lisinopril (Lisinopril), 10 MG PO QPM Loratadine (Claritin), 10 MG PO QAM Metoprolol Tartrate (Lopressor) (Lopressor), 25 MG PO BID Omeprazole (Prilosec), 40 MG PO QAM Simvastatin (Simvastatin), 40 MG PO HS Scheduled PRN Clonazepam (Klonopin), 1 MG PO TID PRN for Anxiety Hydrochlorothiazide (Hydrochlorothiazide), 25 MG PO DAILY PRN for Swelling Metoclopramide (Reglan), 10 MG PO UD PRN for GASTROPARESIS Oxycodone/Acetaminophen 5MG/325MG (Percocet 5MG/325MG), 1-2 TAB PO Q4H PRN for Pain Allergies Coded Allergies: Homatropine (Verified Allergy, Severe, ANNAPHYLACTIC SHOCK, 12/11/17) Hydrocodone (Verified Allergy, Severe, ANNAPHYLACTIC SHOCK, 12/11/17) Erythromycin (Verified Allergy, Intermediate, RASH, 09/25/17) Sulfa Antibiotics (Verified Allergy, Intermediate, RASH, 09/25/17) Methylprednisolone (Verified Allergy, Mild, RASH, 09/25/17) Ondansetron (Verified Allergy, Mild, Cardiac symptoms , 09/25/17) Pt states d/t cardiac issue, prolonged QT interval, she is unable to take zofran- requests to be put on her allergy list Hydromorphone (Verified Adverse Reaction, Intermediate, confusion, 09/25/17) Physical Exam Vital Signs Date Time Temp Pulse Resp B/P (MAP) Pulse Ox O2 Delivery O2 Flow Rate FiO2 3/22/18 21:27 84 16 149/68 97 Room Air 12/11/17 20:00 86 16 138/79 94 Room Air 12/11/17 19:07 88 12/11/17 18:06 84 20 107/83 96 Room Air 12/11/17 17:10 37.1 106 20 142/73 95 Room Air Physical Exam GENERAL: Awake, alert, well-appearing, in no acute distress HENT: Normocephalic, atraumatic. Oropharynx unremarkable. EYES: Normal conjunctiva. Sclera non-icteric. NECK: Supple. No nuchal rigidity. FROM. No JVD. RESPIRATORY: Clear to auscultation. CARDIAC: Regular rate, normal rhythm. Extremities warm and well perfused. Pulses equal. ABDOMEN: Soft, non-distended. No tenderness to palpation. No rebound or guarding. No masses. RECTAL: Deferred. MUSCULOSKELETAL: Chest examination reveals no tenderness. The back is symmetrical on inspection without obvious abnormality. There is no CVA tenderness to palpation. No joint edema. Good ROM of fingers free from pain. No pain with passive straightening of the fingers. LOWER EXTREMITIES: Calves are equal size bilaterally and non-tender. No edema. No discoloration. NEURO: Normal sensorium. No sensory or motor deficits noted. SKIN: No rash or jaundice noted. No evidence of cellulitis to the left hand. No evidence of flexor tenosynovitis.. Slight quarter sized bruise noted. Medical Decision & Procedures ER Provider Diagnostic Interpretation: Radiology results as stated below per my review and radiologist interpretation: L HAND MIN 3 VIEWS ROUTINE CLINICAL HISTORY: Pt c/o left hand pain pain COMPARISON: None. DISCUSSION: The bones and joint spaces appear intact. There is no evidence of fracture, dislocation or bony disease. There is no evidence for soft tissue swelling. IMPRESSION: Negative study. The above report was generated using voice recognition software. It may contain grammatical, syntax or spelling errors. Electronically signed by: Ata Garcia M.D. 12/11/2017 7:26 PM Dictated Date/Time: 12/11/2017 7:26 PM L VENOUS DOPPLER UPR EXT UNIL HISTORY: Pain. Edema. Pt c/o left hand pain COMPARISON STUDY: None. FINDINGS: The internal jugular vein is patent. There is normal flow within the subclavian vein. There is normal flow and compressibility within the left axillary, basilic, brachial, radial, ulnar, and visualized cephalic veins. IMPRESSION: No DVT within the upper extremity. The above report was generated using voice recognition software. It may contain grammatical, syntax or spelling errors. Electronically signed by: Ata Garcia M.D. 12/11/2017 9:06 PM Dictated Date/Time: 12/11/2017 9:05 PM Laboratory Results 12/11/17 18:40 Red Blood Count 4.53, Mean Corpuscular Volume 87.0, Mean Corpuscular Hemoglobin 30.2, Mean Corpuscular Hemoglobin Concent 34.8, Mean Platelet Volume 9.6, Neutrophils (%) (Auto) 45.7, Lymphocytes (%) (Auto) 45.8, Monocytes (%) (Auto) 6.5, Eosinophils (%) (Auto) 1.7, Basophils (%) (Auto) 0.2, Neutrophils # (Auto) 4.11, Lymphocytes # (Auto) 4.13, Monocytes # (Auto) 0.59, Eosinophils # (Auto) 0.15, Basophils # (Auto) 0.02 12/11/17 18:40 Test 12/11/17 18:40 White Blood Count 9.01 K/uL (4.8-10.8) Red Blood Count 4.53 M/uL (4.2-5.4) Hemoglobin 13.7 g/dL (12.0-16.0) Hematocrit 39.4 % (37-47) Mean Corpuscular Volume 87.0 fL (80-100) Mean Corpuscular Hemoglobin 30.2 pg (25-34) Mean Corpuscular Hemoglobin Concent 34.8 g/dl (32-36) Platelet Count 260 K/uL (130-400) Mean Platelet Volume 9.6 fL (7.4-10.4) Neutrophils (%) (Auto) 45.7 % Lymphocytes (%) (Auto) 45.8 % Monocytes (%) (Auto) 6.5 % Eosinophils (%) (Auto) 1.7 % Basophils (%) (Auto) 0.2 % Neutrophils # (Auto) 4.11 K/uL (1.4-6.5) Lymphocytes # (Auto) 4.13 K/uL (1.2-3.4) Monocytes # (Auto) 0.59 K/uL (0.11-0.59) Eosinophils # (Auto) 0.15 K/uL (0-0.5) Basophils # (Auto) 0.02 K/uL (0-0.2) RDW Standard Deviation 42.6 fL (36.4-46.3) RDW Coefficient of Variation 13.3 % (11.5-14.5) Immature Granulocyte % (Auto) 0.1 % Immature Granulocyte # (Auto) 0.01 K/uL (0.00-0.02) Anion Gap 6.0 mmol/L (3-11) Est Creatinine Clear Calc Drug Dose 63.0 ml/min Estimated GFR () 61.8 Estimated GFR (Non- 53.4 BUN/Creatinine Ratio 14.9 (10-20) Calcium Level 9.2 mg/dl (8.5-10.1) Chemistry Specimen Hemolysis Labs reviewed by ED physician. Medications Administered Medications (Trade) Dose Ordered Sig/Prachi Route Start Time Stop Time Status Last Admin Dose Admin Ketorolac Tromethamine (Toradol Inj) 30 mg NOW STAT IV 12/11/17 18:15 12/11/17 18:19 DC 12/11/17 18:52 30 MG Sodium Chloride 1,000 ml @ 999 mls/hr Q1H1M STAT IV 12/11/17 18:15 12/11/17 19:15 DC 12/11/17 18:56 999 MLS/HR Ceftriaxone Sodium (Rocephin Inj) 1 gm NOW STAT IV 12/11/17 18:15 12/11/17 18:19 DC 12/11/17 18:53 1 GM Clindamycin Phosphate (Cleocin 600mg/ 54ml D5W) 600 mg ONE ONCE IV 12/11/17 18:15 12/11/17 18:19 DC 12/11/17 18:54 600 MG Morphine Sulfate (MoRPHine SULFATE INJ) 10 mg NOW STAT IV 12/11/17 18:59 12/11/17 19:01 DC 12/11/17 19:11 10 MG Metoclopramide HCl (Reglan Inj) 10 mg NOW STAT IV 12/11/17 18:59 12/11/17 19:01 DC 12/11/17 19:12 10 MG Morphine Sulfate (MoRPHine SULFATE INJ) 10 mg NOW STAT IV 12/11/17 21:19 12/11/17 21:20 DC 12/11/17 21:19 10 MG ED Course 1810: Past medical records reviewed. The patient was evaluated in room B7. A complete history and physical examination was performed. 1814: Ordered Clindamycin Phosphate 600 mg IV, Rocephin Inj 1 gm IV, NSS 1000 ml @ 999 mls/hr IV, Toradol Inj 30 mg IV. 1836: I reevaluated the patient and she is still in pain. I applied ice to her hand. 1858: Ordered Reglan Inj 10 mg IV, Morphine Sulfate 10 mg IV. 1927: I reevaluated the patient and she is feeling better. 2118: Ordered Morphine Sulfate 10 mg IV. 2122: Upon reexamination the patient is resting comfortably. I discussed results and treatment plan with the patient. She verbalizes agreement and understanding. The patient is ready for discharge. 2123: Ordered Cephalexin Monohydrate 1 homepack PO. 2129: Ordered Oxycodone/acetaminophen 1 homepack PO, Clindamycin HCl 1 homepack PO. Medical Decision Differential diagnosis: Etiologies such as cellulitis, abscess, MRSA infection, DVT, necrotizing fasciitis, dermatitis, drug eruption, as well as others were entertained. This is a 52-year-old complaining of left hand pain. Patient had an IV in this hand however there is no evidence of cellulitis or even infection to the area. She is a quarter sized contusion. Cellulitis is white blood cell count was obtained. She has no physical findings of tenosynovitis on examination she has no evidence of a DVT on ultrasound. She was given Toradol here in the emergency department and started on antibiotics clindamycin. Stressed the need for follow-up with orthopedics. Splint for comfort. Patient was in agreement with the treatment plan. [place] Drug Monitoring Program Search Results: patient reviewed within database Drug Monitoring Findings: She had 75 Klonopin on December 01. Medication Reconcilliation Current Medication List: was personally reviewed by me Blood Pressure Screening Patient's blood pressure: Normal blood pressure Blood pressure disposition: Did not require urgent referral Impression Primary Impression: Swelling of left extremity Scribe Attestation The scribe's documentation has been prepared under my direction and personally reviewed by me in its entirety. I confirm that the note above accurately reflects all work, treatment, procedures, and medical decision making performed by me. Departure Information Dispostion Home / Self-Care Prescriptions Oxycodone/Acetaminophen 5MG/325MG (PERCOCET 5MG/325MG) Tab 1-2 TAB PO Q4H Y for Pain, #14 TAB Prov: Cheko Eddy MD 12/11/17 Cephalexin Monohydrate (Keflex) 500 Mg Cap 500 MG PO QID for 10 Days, #40 CAP Prov: Cheko Eddy MD 12/11/17 Clindamycin Hcl (CLEOCIN) 150 Mg Cap 300 MG PO QID for 10 Days, #80 CAP Prov: Cheko Eddy MD 12/11/17 Referrals Marcie Hernández (PCP) Forms HOME CARE DOCUMENTATION FORM, IMPORTANT VISIT INFORMATION, WORK / SCHOOL INSTRUCTIONS Patient Instructions My [facility] Additional Instructions Need follow up with DR Walker's office You received narcotic or benzodiazepene medication while in the emergency room today. This is an addictive medication that may cause drowziness as well as constipation. Do not drive, operate heavy machinery, or drink alcohol under the influence of this medication. Take 600 mg Ibuprofen every 6 hours Take Percocet for breakthrough pain Radiographs and CTs will be reread by a radiologist in the morning. Culture results are usually available in approx 48 hours You have been examined and treated today on an emergency basis only. This is not a substitute for, or an effort to provide, complete comprehensive medical care. It is impossible to recognize and treat all injuries or illnesses in a single emergency department visit. It is therefore important that you follow up closely with Dr Hernández. Call as soon as possible for an appointment. Thank you for your time and consideration. I look forward to speaking with you again soon. Please don't hesitate to call us if you have any questions.
[2017-12-11 19:07] LABS: BASO % 0.2 %; BASO ABS # 0.02 K/uL (0-0.2); EOS % 1.7 %; EOS ABS # 0.15 K/uL (0-0.5); HEMATOCRIT 39.4 % (37-47); HEMOGLOBIN 13.7 g/dL (12.0-16.0); IG# 0.01 K/uL (0.00-0.02); LYMPH % 45.8 %; LYMPH ABS # 4.13 K/uL (1.2-3.4); MEAN CORPUSCULAR HEMOGLOBIN 30.2 pg (25-34); MEAN CORPUSCULAR HGB CONC 34.8 g/dl (32-36); MEAN PLATELET VOLUME 9.6 fL (7.4-10.4); MONO % 6.5 %; MONO ABS # 0.59 K/uL (0.11-0.59); NEUT % 45.7 %; NEUT ABS # 4.11 K/uL (1.4-6.5); PLATELET COUNT 260 K/uL (130-400); RED CELL DISTRIBUTION WIDTH CV 13.3 % (11.5-14.5); RED CELL DISTRIBUTION WIDTH SD 42.6 fL (36.4-46.3); WHITE BLOOD COUNT 9.01 K/uL (4.8-10.8)
[2017-12-11] MEDS ORDERED: CIPR250T3 PO (19:22)
--- NOTE | 2017-12-11 19:27 | DIAGNOSTIC IMAGING REPORT ---
L HAND MIN 3 VIEWS ROUTINE CLINICAL HISTORY: Pt c/o left hand pain pain COMPARISON: None. DISCUSSION: The bones and joint spaces appear intact. There is no evidence of fracture, dislocation or bony disease. There is no evidence for soft tissue swelling. IMPRESSION: Negative study. The above report was generated using voice recognition software. It may contain grammatical, syntax or spelling errors. Electronically signed by: Ata Garcia M.D. 12/11/2017 7:26 PM Dictated Date/Time: 12/11/2017 7:26 PM
[2017-12-11] MEDS ORDERED: LINA1CAP PO (19:36)
[2017-12-11] MEDS ORDERED: INSU100I23 SQ (19:36)
[2017-12-11] MEDS ORDERED: IBUP-1050 PO (19:36)
[2017-12-11 19:46] LABS: CALCIUM 9.2 mg/dl (8.5-10.1); CREATININE 1.18 mg/dl (0.60-1.20)
[2017-12-11 19:51] LABS: POTASSIUM 4.4 mmol/L (3.5-5.1)
--- NOTE | 2017-12-11 21:07 | DIAGNOSTIC IMAGING REPORT ---
L VENOUS DOPPLER UPR EXT UNIL HISTORY: Pain. Edema. Pt c/o left hand pain COMPARISON STUDY: None. FINDINGS: The internal jugular vein is patent. There is normal flow within the subclavian vein. There is normal flow and compressibility within the left axillary, basilic, brachial, radial, ulnar, and visualized cephalic veins. IMPRESSION: No DVT within the upper extremity. The above report was generated using voice recognition software. It may contain grammatical, syntax or spelling errors. Electronically signed by: Ata Garcia M.D. 12/11/2017 9:06 PM Dictated Date/Time: 12/11/2017 9:05 PM
[2017-12-11] MEDS ORDERED: CEPHALEXIN 500MG HOME PACK 1 EA BTL PO STA (21:24)
[2017-12-11] MEDS ORDERED: CEPH500C PO (21:26)
[2017-12-11] MEDS ORDERED: OXYC-57 PO (21:26)
[2017-12-11] MEDS ORDERED: CLIN150C PO (21:26)
[2017-12-11 21:27] VITALS: BP 149/68; PULSE 84; O2SAT 97
[2017-12-11] MEDS ORDERED: PERCOCET HOME PACK PO ONE (21:30)
[2017-12-11] MEDS ORDERED: CLINDAMYCIN 150MG HOME PACK PO ONE (21:30)
== END 2017-12-11 21:50 | disposition home or self-care (01) ==
LOC: C.EDB 16:56
DX: M79.89 Other specified soft tissue disorders (principal); F41.9 Anxiety disorder, unspecified; E11.9 Type 2 diabetes mellitus without complications; N80.9 Endometriosis, unspecified; K21.9 Gastro-esophageal reflux disease without esophagitis; E78.5 Hyperlipidemia, unspecified; I10 Essential (primary) hypertension; E03.9 Hypothyroidism, unspecified; G43.909 Migraine, unspecified, not intractable, without status migrainosus; D50.9 Iron deficiency anemia, unspecified; M19.90 Unspecified osteoarthritis, unspecified site; F43.10 Post-traumatic stress disorder, unspecified; Z83.3 Family history of diabetes mellitus; Z82.49 Family history of ischemic heart disease and other diseases of the circulatory system; Z83.79 Family history of other diseases of the digestive system; Z84.1 Family history of disorders of kidney and ureter; Z79.4 Long term (current) use of insulin; Z79.899 Other long term (current) drug therapy; Z88.1 Allergy status to other antibiotic agents; Z88.2 Allergy status to sulfonamides; Z88.8 Allergy status to other drugs, medicaments and biological substances

== ENCOUNTER 2017-12-13 18:43 | Emergency (ER) | payer OTHER ==
[~2017-12-13] VITALS: Ht 154.9 cm; Wt 85.0 kg
[~2017-12-13 18:43] MED LIST changes: +CEPH500C PO; +CIPR250T3 PO; +CLIN150C PO; +IBUP-1050 PO; +INSU100I23 SQ; +LINA1CAP PO; +OXYC-57 PO
[2017-12-13 18:45] VITALS: TEMP 36.6; Ht 154.9 cm; Wt 85.0 kg
[2017-12-13] MEDS ORDERED: OXYCODONE HCL IR 5 MG TAB (IMMEDIATE RELEASE) PO STA (18:57)
[2017-12-13] MEDS ORDERED: ONDANSETRON 4MG OD TAB PO ONE (19:00)
[2017-12-13 19:19] LABS: BASO % 0.2 %; BASO ABS # 0.02 K/uL (0-0.2); EOS % 1.7 %; EOS ABS # 0.14 K/uL (0-0.5); HEMATOCRIT 42.7 % (37-47); HEMOGLOBIN 14.7 g/dL (12.0-16.0); IG# 0.02 K/uL (0.00-0.02); LYMPH % 43.5 %; LYMPH ABS # 3.49 K/uL (1.2-3.4); MEAN CELL VOLUME 88.4 fL (80-100); MEAN CORPUSCULAR HEMOGLOBIN 30.4 pg (25-34); MEAN CORPUSCULAR HGB CONC 34.4 g/dl (32-36); MEAN PLATELET VOLUME 9.4 fL (7.4-10.4); MONO ABS # 0.56 K/uL (0.11-0.59); NEUT % 47.4 %; PLATELET COUNT 219 K/uL (130-400); RED CELL DISTRIBUTION WIDTH CV 13.2 % (11.5-14.5); RED CELL DISTRIBUTION WIDTH SD 42.6 fL (36.4-46.3); WHITE BLOOD COUNT 8.03 K/uL (4.8-10.8)
[2017-12-13] MEDS ORDERED: PROM25TA9 PO (19:22)
[2017-12-13 19:44] LABS: CALCIUM 9.4 mg/dl (8.5-10.1); CREATININE 1.04 mg/dl (0.60-1.20); TOTAL PROTEIN 8.1 gm/dl (6.4-8.2)
--- NOTE | 2017-12-13 20:13 | DIAGNOSTIC IMAGING REPORT ---
L HAND MIN 3 VIEWS ROUTINE CLINICAL HISTORY: pain and swelling pain. Edema. COMPARISON: None. DISCUSSION: The bones and joint spaces appear intact. There is no evidence of fracture, dislocation or bony disease. Mild soft tissue edema IMPRESSION: Mild soft tissue edema. Otherwise negative study. The above report was generated using voice recognition software. It may contain grammatical, syntax or spelling errors. Electronically signed by: Ata Garcia M.D. 12/13/2017 8:12 PM Dictated Date/Time: 12/13/2017 8:11 PM
--- NOTE | 2017-12-13 20:14 | DIAGNOSTIC IMAGING REPORT ---
L VENOUS DOPPLER UPR EXT UNIL HISTORY: Pain. Edema. swelling COMPARISON STUDY: 12/11/2017 FINDINGS: The internal jugular vein is patent. There is normal flow within the subclavian vein. There is normal flow and compressibility within the left axillary, basilic, brachial, radial, ulnar, and visualized cephalic veins. IMPRESSION: No DVT within the upper extremity. No change from the prior exam. The above report was generated using voice recognition software. It may contain grammatical, syntax or spelling errors. Electronically signed by: Ata Garcia M.D. 12/13/2017 8:13 PM Dictated Date/Time: 12/13/2017 8:12 PM
[2017-12-13] MEDS ORDERED: CEFTRIAXONE SOD INJ 1 GM ADDVIAL IV STA (20:17)
[2017-12-13 21:19] LABS: POTASSIUM 4.1 mmol/L (3.5-5.1)
[2017-12-13 22:05] VITALS: BP 107/63; PULSE 77; O2SAT 98
--- NOTE | 2017-12-13 22:16 | EMERGENCY ROOM VISIT NOTE ---
History Report prepared by Rosa Elena: Chloé Benitez Under the Supervision of: Dr. Betito Fonseca D.O. First contact with patient: 18:48 Chief Complaint: WRIST PAIN Stated Complaint: LEFT HAND/WRIST PAIN History of Present Illness The patient is a 52 year old female who presents to the Emergency Room with complaints of persistent left hand pain starting 1 week ago. The patient had an IV 1 week ago in her left hand. She started having swelling and pain in her hand and was started on antibiotics for cellulitis. The pain is in all her fingers goes and up into her wrist and her elbow. She denies any fever. She has been taking oxycodone to no significant relief. She reports nausea and is having difficulty keeping down her antibiotics. Source of History: patient Onset: 1 week ago Position: hand (left) Quality: other (cellulitis pain) Timing: other (persistent) Modifying Factors (Worsening): movement Associated Symptoms: + nausea, No fevers Review of Systems See HPI for pertinent positives & negatives. A total of 10 systems reviewed and were otherwise negative. 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 (20) OSTEOARTHROS NOS-UNSPEC (21) Panic disorder with agoraphobia (22) PTSD (post-traumatic stress disorder) (23) Puncture wound of left foot (24) Puncture wound of left foot (25) Thumb fracture Surgical Problems: (1) Hx of section Family History Diabetes mellitus FH: heart disease FHx: gallbladder disease Hypertension Kidney disease Kidney stones Seizures Social History Smoking Status: Never Smoker Alcohol Use: occasionally Drug Use: none Marital Status: Housing Status: lives with family Occupation Status: unemployed Current/Historical Medications Scheduled Ascorbic Acid (Vitamin C), 500 MG PO QAM Cephalexin Monohydrate (Keflex), 500 MG PO QID Cholecalciferol (Vitamin D3), 4,000 UNITS PO DAILY Clindamycin Hcl (Cleocin), 300 MG PO QID Clonazepam (Klonopin), 1 MG PO TID Escitalopram Oxalate (Escitalopram Oxalate), 20 MG PO QAM Escitalopram Oxalate (Lexapro), 10 MG PO DAILY Ferrous Sulfate (Iron), 325 MG PO HS Insulin Lispro (Human) (Humalog Kwikpen), 20 UNITS SC TIDM Levothyroxine Sodium (Levothyroxine Sodium), 112 MCG PO DAILY Linaclotide (Linzess), 145 MG PO QAM Lisinopril (Lisinopril), 10 MG PO QPM Loratadine (Claritin), 10 MG PO QAM Metoprolol Tartrate (Lopressor) (Lopressor), 25 MG PO BID Omeprazole (Prilosec), 40 MG PO HS Simvastatin (Simvastatin), 40 MG PO HS Scheduled PRN Hydrochlorothiazide (Hydrochlorothiazide), 25 MG PO DAILY PRN for Swelling Metoclopramide (Reglan), 10 MG PO UD PRN for GASTROPARESIS Oxycodone/Acetaminophen 5MG/325MG (Percocet 5MG/325MG), 1-2 TAB PO Q4H PRN for Pain Promethazine Hcl (Phenergan), 25 MG PO Q6H PRN for Nausea Allergies Coded Allergies: Homatropine (Verified Allergy, Severe, ANNAPHYLACTIC SHOCK, 12/13/17) Hydrocodone (Verified Allergy, Severe, ANNAPHYLACTIC SHOCK, 12/13/17) Erythromycin (Verified Allergy, Intermediate, RASH, 12/13/17) Sulfa Antibiotics (Verified Allergy, Intermediate, RASH, 12/13/17) Methylprednisolone (Verified Allergy, Mild, RASH, 12/13/17) Ondansetron (Verified Allergy, Mild, Cardiac symptoms , 12/13/17) Pt states d/t cardiac issue, prolonged QT interval, she is unable to take zofran- requests to be put on her allergy list Hydromorphone (Verified Adverse Reaction, Intermediate, confusion, 12/13/17 ) Physical Exam Vital Signs Date Time Temp Pulse Resp B/P (MAP) Pulse Ox O2 Delivery O2 Flow Rate FiO2 12/13/17 22:05 77 107/63 98 12/13/17 20:03 65 158/86 100 Room Air 12/13/17 18:45 36.6 74 20 146/79 100 Physical Exam GENERAL: Patient is awake, alert, wearing sunglasses on evaluation, does not appear to be uncomfortable EYES: The conjunctivae are clear. The pupils are round and reactive. EARS, NOSE, MOUTH AND THROAT: The nose is without any evidence of any deformity. Mucous membranes are moist tongue is midline NECK: The neck is nontender and supple. RESPIRATORY: Normal respiratory effort is noted there is no evidence of wheezing rhonchi or rales CARDIOVASCULAR: Regular rate and rhythm noted there no murmurs rubs or gallops normal S1 normal S2 GASTROINTESTINAL: The abdomen is soft. Bowel sounds are present in all quadrants. Abdomen is nontender MUSCULOSKELETAL/EXTREMITIES: There was no deformity of the LUE, ROM of the left wrist as well as left hand increased pain. SKIN: There is no pedal edema noted. Pulses symmetric in both hands. Cap refill symmetric in both hands. Symmetric swelling of left hand, but no erythema. There was ecchymosis over the dorsum of the left hand consistent with recent IV. NEUROLOGIC: Patient is awake alert and oriented x3 strength is symmetric patellar reflexes are 2+ bilaterally Medical Decision & Procedures ER Provider Diagnostic Interpretation: X-ray results as stated below per interpretation by me and the radiologist. Radiology results as stated below per my review and radiologist interpretation: L HAND MIN 3 VIEWS ROUTINE CLINICAL HISTORY: pain and swelling pain. Edema. COMPARISON: None. DISCUSSION: The bones and joint spaces appear intact. There is no evidence of fracture, dislocation or bony disease. Mild soft tissue edema IMPRESSION: Mild soft tissue edema. Otherwise negative study. The above report was generated using voice recognition software. It may contain grammatical, syntax or spelling errors. Electronically signed by: Ata Garcia M.D. 12/13/2017 8:12 PM Dictated Date/Time: 12/13/2017 8:11 PM L VENOUS DOPPLER UPR EXT UNIL HISTORY: Pain. Edema. swelling COMPARISON STUDY: 12/11/2017 FINDINGS: The internal jugular vein is patent. There is normal flow within the subclavian vein. There is normal flow and compressibility within the left axillary, basilic, brachial, radial, ulnar, and visualized cephalic veins. IMPRESSION: No DVT within the upper extremity. No change from the prior exam. The above report was generated using voice recognition software. It may contain grammatical, syntax or spelling errors. Electronically signed by: Ata Garcia M.D. 12/13/2017 8:13 PM Dictated Date/Time: 12/13/2017 8:12 PM Laboratory Results 12/13/17 19:10 Red Blood Count 4.83, Mean Corpuscular Volume 88.4, Mean Corpuscular Hemoglobin 30.4, Mean Corpuscular Hemoglobin Concent 34.4, Mean Platelet Volume 9.4, Neutrophils (%) (Auto) 47.4, Lymphocytes (%) (Auto) 43.5, Monocytes (%) (Auto) 7.0, Eosinophils (%) (Auto) 1.7, Basophils (%) (Auto) 0.2, Neutrophils # (Auto) 3.80, Lymphocytes # (Auto) 3.49, Monocytes # (Auto) 0.56, Eosinophils # (Auto) 0.14, Basophils # (Auto) 0.02 12/13/17 19:10 Test 12/13/17 19:10 12/13/17 20:03 White Blood Count 8.03 K/uL (4.8-10.8) Red Blood Count 4.83 M/uL (4.2-5.4) Hemoglobin 14.7 g/dL (12.0-16.0) Hematocrit 42.7 % (37-47) Mean Corpuscular Volume 88.4 fL (80-100) Mean Corpuscular Hemoglobin 30.4 pg (25-34) Mean Corpuscular Hemoglobin Concent 34.4 g/dl (32-36) Platelet Count 219 K/uL (130-400) Mean Platelet Volume 9.4 fL (7.4-10.4) Neutrophils (%) (Auto) 47.4 % Lymphocytes (%) (Auto) 43.5 % Monocytes (%) (Auto) 7.0 % Eosinophils (%) (Auto) 1.7 % Basophils (%) (Auto) 0.2 % Neutrophils # (Auto) 3.80 K/uL (1.4-6.5) Lymphocytes # (Auto) 3.49 K/uL (1.2-3.4) Monocytes # (Auto) 0.56 K/uL (0.11-0.59) Eosinophils # (Auto) 0.14 K/uL (0-0.5) Basophils # (Auto) 0.02 K/uL (0-0.2) RDW Standard Deviation 42.6 fL (36.4-46.3) RDW Coefficient of Variation 13.2 % (11.5-14.5) Immature Granulocyte % (Auto) 0.2 % Immature Granulocyte # (Auto) 0.02 K/uL (0.00-0.02) Erythrocyte Sedimentation Rate 26 mm/hr (0-21) Anion Gap 5.0 mmol/L (3-11) Est Creatinine Clear Calc Drug Dose 63.3 ml/min Estimated GFR () 72.0 Estimated GFR (Non- 62.2 BUN/Creatinine Ratio 10.6 (10-20) Calcium Level 9.4 mg/dl (8.5-10.1) Total Bilirubin 0.5 mg/dl (0.2-1) Aspartate Amino Transf (AST/SGOT) 44 U/L (15-37) Alanine Aminotransferase (ALT/SGPT) 56 U/L (12-78) Alkaline Phosphatase 89 U/L (45-117) Total Creatine Kinase 73 U/L (26-192) C-Reactive Protein 0.59 mg/dl (0-0.29) Total Protein 8.1 gm/dl (6.4-8.2) Albumin 4.0 gm/dl (3.4-5.0) Globulin 4.1 gm/dl (2.5-4.0) Albumin/Globulin Ratio 1.0 (0.9-2) Prothrombin Time 10.0 SECONDS (9.0-12.0) Prothromb Time International Ratio 1.0 (0.9-1.1) Activated Partial Thromboplast Time 26.0 SECONDS (21.0-31.0) Partial Thromboplastin Ratio 1.0 Laboratory results per my review. Medications Administered Medications (Trade) Dose Ordered Sig/Prachi Route Start Time Stop Time Status Last Admin Dose Admin Oxycodone HCl (Roxicodone Immediate Rel Tab) 5 mg NOW STAT PO 12/13/17 18:57 12/13/17 18:59 DC 12/13/17 19:27 5 MG Ondansetron HCl (Zofran Odt) 4 mg ONE ONCE PO 12/13/17 19:00 12/13/17 19:01 DC 12/13/17 19:27 4 MG Ceftriaxone Sodium (Rocephin Inj) 1 gm NOW STAT IV 12/13/17 20:17 12/13/17 20:18 DC 12/13/17 20:22 1 GM ED Course 1850: The patient was evaluated in room C6. A complete history and physical examination were performed. 1856: Oxycodone HCl 5 mg PO. 1899: Zofran Odt 4 mg PO. 2016: Rocephin Inj 1 gm IV. 2150: Upon reevaluation, the patient is resting comfortably. I discussed the results and treatment plan with her. She verbalized agreement of the treatment plan. She was discharged home. Medical Decision Prior records reviewed and summarized above. Triage Nursing notes reviewed. Additional history obtained from the family. Differential diagnosis: Etiologies such as DVT, musculoskeletal, infection, joint effusion, trauma, lymphedema, idiopathic, CHF, as well as others were entertained.. The patient is a 52-year-old female who presented to the emergency department for an evaluation of left hand swelling and pain. The patient had an IV at an outside emergency department in the left hand. This appears to have swelling and pain at this time. I discussed patient's laboratory and radiographic studies with her. I did review the patient's previous electronic medical records. She was treated with pain medication in the emergency department. I recommended that she continue all medications as prescribed and follow-up with the orthopedic physician on Friday as scheduled. Otherwise she was encouraged to stop using the splint. There were also encouraged to return to the emergency department immediately if symptoms change worsen or the need arises. Medication Reconcilliation Current Medication List: was personally reviewed by me Blood Pressure Screening Patient's blood pressure: Elevated blood pressure Blood pressure disposition: Elevated BP felt to be situational Impression Primary Impression: Cellulitis of left hand Scribe Attestation The scribe's documentation has been prepared under my direction and personally reviewed by me in its entirety. I confirm that the note above accurately reflects all work, treatment, procedures, and medical decision making performed by me. Departure Information Dispostion Home / Self-Care Referrals Marcie Hernández (PCP) Dimitry Walker, DO Forms HOME CARE DOCUMENTATION FORM, IMPORTANT VISIT INFORMATION, WORK / SCHOOL INSTRUCTIONS Patient Instructions ED Infec Skin Cellulitis, My [facility] Additional Instructions Follow-up with your family doctor for reevaluation. I would also recommend a follow-up appointment with the orthopedic hand specialist. Call Friday to schedule a follow-up appointment. Continue all medications as prescribed.
== END 2017-12-13 22:06 | disposition home or self-care (01) ==
LOC: C.EDB 18:45 → C.EDC 22:06
DX: L03.114 Cellulitis of left upper limb (principal); F41.9 Anxiety disorder, unspecified; E11.9 Type 2 diabetes mellitus without complications; N80.9 Endometriosis, unspecified; K21.9 Gastro-esophageal reflux disease without esophagitis; E78.5 Hyperlipidemia, unspecified; I10 Essential (primary) hypertension; E03.9 Hypothyroidism, unspecified; D50.9 Iron deficiency anemia, unspecified; M54.16 Radiculopathy, lumbar region; M19.90 Unspecified osteoarthritis, unspecified site; F40.01 Agoraphobia with panic disorder; F43.10 Post-traumatic stress disorder, unspecified; K22.6 Gastro-esophageal laceration-hemorrhage syndrome; Z79.4 Long term (current) use of insulin; Z83.3 Family history of diabetes mellitus; Z82.49 Family history of ischemic heart disease and other diseases of the circulatory system; Z84.1 Family history of disorders of kidney and ureter; Z82.0 Family history of epilepsy and other diseases of the nervous system; Z88.8 Allergy status to other drugs, medicaments and biological substances; Z88.5 Allergy status to narcotic agent; Z88.2 Allergy status to sulfonamides; Z88.0 Allergy status to penicillin

== ENCOUNTER 2018-01-16 15:29 | Emergency (ER) | payer OTHER ==
[~2018-01-16] VITALS: Ht 154.9 cm; Wt 106.0 kg
[~2018-01-16 15:29] MED LIST changes: -CEPH500C PO; -CIPR250T3 PO; -CLIN150C PO; -DXY100 PO; -HYDR5SYP11 PO; -IBUP-1050 PO; -INSDGIPEN SC; -INSU100I23 SQ; -MRLP17X PO; +PROM25TA9 PO; -VLTG EXT
[2018-01-16 15:31] VITALS: TEMP 37.3; Ht 154.9 cm; Wt 106.0 kg
[2018-01-16] MEDS ORDERED: OXYCODONE HCL IR 5 MG TAB (IMMEDIATE RELEASE) PO STA (15:56)
[2018-01-16] MEDS ORDERED: OXYC1TAB3 PO (16:12)
[2018-01-16] MEDS ORDERED: DICL75TA2 PO (16:12)
--- NOTE | 2018-01-16 16:17 | EMERGENCY ROOM VISIT NOTE ---
ED Visit Note First contact with patient: 15:45 CHIEF COMPLAINT: Left hand pain and swelling HISTORY OF PRESENT ILLNESS: This 52-year-old female presents to ER with chief complaint of left hand pain and swelling for over a month. The patient states initially that her hand swelled up after she had an IV placed in her hand. She states the pain and swelling persisted. She was initially treated with antibiotics which cleared the redness but she continued with the pain and swelling. She was then referred to orthopedics, Dr. Hanna and Patito and they placed her in a splint which did not help. She informed them that she was not getting any better and they told her that she was just "drug seeking". They refused to see her back in the office. The patient states that she call Dr. Brenner but has not heard back from them. The patient denies any current narcotic use. REVIEW OF SYSTEMS: 6 system review was performed and was negative unless stated otherwise in history of present illness. PMH: The patient is healthy; see chronic problem list SOCIAL HISTORY: Patient lives with her family. PHYSICAL EXAM: Vital Signs: Were reviewed reviewed Nurse's notes. GENERAL: 52- year-old white female appears in no acute distress. MENTAL Status: Alert and oriented 3. The patient appears very anxious. LEFT HAND: The dorsum of the hand is diffusely swollen and tender. The skin is intact. There is no erythema. There is no streaking up the arm. The patient has difficulty flexing and extending her fingers secondary to pain. Radial pulses 2+. EMERGENCY DEPARTMENT COURSE: The patient was evaluated. The patient was given OxyIR 5 mg p.o. while in the ER. I also look the patient in the PD MP and there are no current narcotic scripts. She has not had many narcotic scripts was over the last 6 months. The residential case manager got the patient an appointment with Dr. Brenner on January 20. The patient was happy with treatment plan and was discharged home in stable condition. DIAGNOSIS: Left hand pain and swelling DISCHARGE INSTRUCTIONS & TREATMENT: Take Voltaren as prescribed. Take OxyIR as needed for additional pain relief. Do not drive while taking the OxyIR. Keep scheduled appointment with Dr. Brenner on Friday for further evaluation and treatment. Problem List Medical Problems: (1) ANXIETY STATE NOS Status: Chronic (2) Bilateral lower extremity edema Status: Resolved (3) Bilateral lower extremity edema Status: Resolved (4) Corneal abrasion, left Status: Resolved (5) ENDOMETRIOSIS NOS Status: Chronic (6) ESOPHAGEAL REFLUX Status: Chronic (7) HYPERLIPIDEMIA NEC/NOS Status: Chronic (8) HYPERTENSION NOS Status: Chronic (9) HYPOTHYROIDISM NOS Status: Chronic (10) IRON DEFIC ANEMIA NOS Status: Chronic (11) MEL-PELAYO SYNDROME Status: Resolved (12) OSTEOARTHROS NOS-UNSPEC Status: Chronic (13) Panic disorder with agoraphobia Status: Chronic (14) PTSD (post-traumatic stress disorder) Status: Chronic (15) Puncture wound of left foot Status: Resolved (16) Puncture wound of left foot Status: Resolved (17) Thumb fracture Status: Resolved Current/Historical Medications Scheduled Ascorbic Acid (Vitamin C), 500 MG PO QAM Cholecalciferol (Vitamin D3), 4,000 UNITS PO DAILY Clonazepam (Klonopin), 1 MG PO TID Diclofenac Sodium (Voltaren), 75 MG PO BID Escitalopram Oxalate (Escitalopram Oxalate), 20 MG PO QAM Escitalopram Oxalate (Lexapro), 10 MG PO DAILY Ferrous Sulfate (Iron), 325 MG PO HS Insulin Lispro (Human) (Humalog Kwikpen), 20 UNITS SC TIDM Levothyroxine Sodium (Levothyroxine Sodium), 112 MCG PO DAILY Linaclotide (Linzess), 145 MG PO QAM Lisinopril (Lisinopril), 10 MG PO QPM Loratadine (Claritin), 10 MG PO QAM Metoprolol Tartrate (Lopressor) (Lopressor), 25 MG PO BID Omeprazole (Prilosec), 40 MG PO HS Simvastatin (Simvastatin), 40 MG PO HS Scheduled PRN Hydrochlorothiazide (Hydrochlorothiazide), 25 MG PO DAILY PRN for Swelling Metoclopramide (Reglan), 10 MG PO UD PRN for GASTROPARESIS Oxycodone Immediate Rel Tab (Roxicodone Ir), 1-2 TAB PO Q6 PRN for Pain Oxycodone/Acetaminophen 5MG/325MG (Percocet 5MG/325MG), 1-2 TAB PO Q4H PRN for Pain Promethazine Hcl (Phenergan), 25 MG PO Q6H PRN for Nausea Allergies Coded Allergies: Homatropine (Verified Allergy, Severe, ANNAPHYLACTIC SHOCK, 12/13/17) Hydrocodone (Verified Allergy, Severe, ANNAPHYLACTIC SHOCK, 12/13/17) Erythromycin (Verified Allergy, Intermediate, RASH, 12/13/17) Sulfa Antibiotics (Verified Allergy, Intermediate, RASH, 12/13/17) Methylprednisolone (Verified Allergy, Mild, RASH, 12/13/17) Ondansetron (Verified Allergy, Mild, Cardiac symptoms , 12/13/17) Pt states d/t cardiac issue, prolonged QT interval, she is unable to take zofran- requests to be put on her allergy list Hydromorphone (Verified Adverse Reaction, Intermediate, confusion, 12/13/17 ) Vital Signs Date Time Temp Pulse Resp B/P (MAP) Pulse Ox O2 Delivery O2 Flow Rate FiO2 01/16/18 15:31 37.3 87 20 175/85 96 Room Air Medications Administered Medications (Trade) Dose Ordered Sig/Prachi Route Start Time Stop Time Status Last Admin Dose Admin Oxycodone HCl (Roxicodone Immediate Rel Tab) 5 mg NOW STAT PO 01/16/18 15:56 01/16/18 15:57 DC 01/16/18 16:05 5 MG Departure Information Impression Primary Impression: Hand pain, left Dispostion Home / Self-Care Condition GOOD Prescriptions Oxycodone Immediate Rel Tab (ROXICODONE IR) 5 Mg Tab 1-2 TAB PO Q6 Y for Pain, #20 TAB Prov: Anabell Garcia PA-C 01/16/18 Diclofenac Sodium (VOLTAREN) 75 Mg Tab 75 MG PO BID for 10 Days, #20 TAB Prov: Anabell Garcia PA-C 01/16/18 Referrals Russ Brenner MD Forms HOME CARE DOCUMENTATION FORM, IMPORTANT VISIT INFORMATION Patient Instructions [facility]
[2018-01-16 16:25] VITALS: BP 161/98; PULSE 80; O2SAT 97
== END 2018-01-16 16:26 | disposition home or self-care (01) ==
LOC: C.EDB 15:30 → C.EDD 16:26
DX: M79.642 Pain in left hand (principal); M79.89 Other specified soft tissue disorders; N80.9 Endometriosis, unspecified; F41.1 Generalized anxiety disorder; E78.5 Hyperlipidemia, unspecified; I10 Essential (primary) hypertension; E03.9 Hypothyroidism, unspecified; D50.9 Iron deficiency anemia, unspecified; M19.90 Unspecified osteoarthritis, unspecified site; K21.9 Gastro-esophageal reflux disease without esophagitis; Z88.8 Allergy status to other drugs, medicaments and biological substances; Z88.5 Allergy status to narcotic agent; Z88.1 Allergy status to other antibiotic agents; Z79.899 Other long term (current) drug therapy

== ENCOUNTER 2019-04-06 13:42 | Observation (INO) ==
[2019-04-06] MEDS ORDERED: SODIUM CHLORIDE 0.9% 1000ML 1,000 ML IV ONE (15:37)
[2019-04-06] MEDS ORDERED: METOCLOPRAMIDE HCL INJ 5 MG/ML 2 ML VIAL IV ONE (15:37)
[2019-04-06] MEDS ORDERED: ACETAMINOPHEN 1,000 MG/100 ML VIAL IV STA (15:37)
[2019-04-06] MEDS ORDERED: FAMOTIDINE 20MG IV PUSH 20 MG/5 ML SYR IV STA (15:42)
--- NOTE | 2019-04-06 15:48 | Emergency Department Note ---
ED Visit Note I assisted Dr. Eddy in the care of this patient. Please see attending note for complete details. . Resident Activity Tracking Resident Involvement: Resident Care Provided Care Provided: Adult ED
[2019-04-06 16:05] LABS: Basophils # (auto) 0.02 K/uL (0-0.2); Basophils % (auto) 0.3 %; Eosinophils # (auto) 0.11 K/uL (0-0.5); Eosinophils % (auto) 1.5 %; Hematocrit (blood only) 41.3 % (37-47); Hemoglobin 14.6 g/dL (12.0-16.0); Immature Granulocytes # (auto) 0.01 K/uL (0.00-0.02); Immature Granulocytes % (auto) 0.1 %; Lymphocytes # (auto) 2.37 K/uL (1.2-3.4); Lymphocytes % (auto) 33.1 %; Mean Corpuscular Hgb Conc 35.4 g/dL (32-36); Mean Corpuscular Volume 88.8 fL (80-100); Mean Platelet Volume 9.3 fL (7.4-10.4); Monocytes # (auto) 0.52 K/uL (0.11-0.59); Monocytes % (auto) 7.3 %; Neutrophils # (auto) 4.14 K/uL (1.4-6.5); Neutrophils % (auto) 57.7 %; Platelet Count 228 K/uL (130-400); RDW Coefficient of Variation 13.3 % (11.5-14.5); RDW Standard Deviation 43.3 fL (36.4-46.3); Red Blood Count 4.65 M/uL (4.2-5.4); White Blood Count 7.17 K/uL (4.8-10.8)
[2019-04-06 16:24] LABS: Alanine Aminotransferase 32 U/L (12-78); Albumin Level 4.2 gm/dl (3.4-5.0); Aspartate Aminotransferase 24 U/L (15-37); BUN Creatinine Ratio 12.1 (10-20); Blood Urea Nitrogen 12 mg/dl (7-18); Carbon Dioxide 25 mmol/L (21-32); Chloride 106 mmol/L (98-107); Creatinine Clr Calc Pharmacy 71.8 ml/min; Est GFR (African American) 74.1; Glucose 141 mg/dl (70-99); Potassium 4.4 mmol/L (3.5-5.1); Sodium 139 mmol/L (136-145)
[2019-04-06 16:29] LABS: Alkaline Phosphatase 84 U/L (45-117); Bilirubin,Total 0.6 mg/dl (0.2-1); Globulin 4.2 gm/dl (2.5-4.0); Total Protein 8.4 gm/dl (6.4-8.2); Troponin I < 0.015 ng/ml (0-0.045)
[2019-04-06] MEDS ORDERED: SODIUM CHLORIDE 0.65% NA SOLN 45 ML (OCEAN) ONE (16:41)
[2019-04-06] MEDS ORDERED: AMOXICILLIN/CLAVULANATE 875 MG TAB PO ONE (16:42)
--- NOTE | 2019-04-06 17:03 | CT Scan Report ---
CT head/brain wo con CLINICAL HISTORY: 53 years-old Female presenting with Pt c/o sinus pressure. TECHNIQUE: Multidetector CT imaging of the head was performed without the use of intravenous contrast . IV contrast: None. One or more dose lowering techniques were used consistent with the principles of ALARA (as low as reasonably achievable), including automatic exposure control, mA or kV adjustment t o individual patient size, and/or use of iterative reconstruction. COMPARISON: 02/05/2016. CT DOSE (mGy.cm): The estimated cumulative dose is 537.48 mGy.cm. FINDINGS: Security Support Analyst topogram: Unremarkable. Ventricles and sulci normal in size. No hemorrhage. Brain parenchyma normal in appearance with preser geoffrey bonilla-white differentiation. No acute territorial infarct. No mass effect or midline shift. No ext ra-axial fluid collection. Paranasal sinuses and mastoid air cells clear. Calvarium intact. IMPRESSION: 1. No acute intracranial abnormality. Electronically signed by: Gume Baird M.D. 04/06/2019 5:02 PM
--- NOTE | 2019-04-06 17:11 | CT Scan Report ---
CT abd pelvis IV con only CLINICAL HISTORY: 53 years-old Female presenting with upper abdominal pain, nausea and vomiting, c/o LUQ abd pain. TECHNIQUE: Multidetector CT of the abdomen and pelvis was performed after the administration of intra venous contrast. IV contrast: 94 mL of Optiray 320. One or more dose lowering techniques were used co nsistent with the principles of ALARA (as low as reasonably achievable), including automatic exposure control, mA or kV adjustment to individual patient size, and/or use of iterative reconstruction. COMPARISON: 06/15/2017. CT DOSE (mGy.cm): The estimated cumulative dose is 1449.15 mGy.cm. FINDINGS: Distribution Associate topogram: Unremarkable. Lung bases: Normal heart size. No pericardial or pleural effusion. No focal infiltrate or nodule at t he lung bases. Liver: Normal morphology. Density suggestive of hepatic steatosis. No focal lesion. Patent hepatic va sculature. Biliary: No intrahepatic or extrahepatic biliary ductal dilatation. Normal gallbladder. Pancreas: Normal. Spleen: Normal. Adrenal glands: Normal. Kidneys and ureters: Normal. No hydronephrosis. Bladder: Normal. Pelvic organs: Uterus and ovaries normal. Bowel: The appendix is dilated up to 8 mm, which represents a notable change from the prior exam when the appendix was normal in size. There is trace if any periappendiceal fat infiltration. No signific ant wall thickening of the appendix. There is fluid density within the appendiceal lumen. No bowel ob struction. Peritoneal cavity: No free fluid or intraperitoneal gas. Lymph nodes: No enlarged lymph nodes in the abdomen or pelvis. Vasculature: Atherosclerosis of the normal caliber abdominal aorta. IVC patent. Abdominal wall: Diastasis of the rectus abdominis. Musculoskeletal: Normal. IMPRESSION: 1. Findings raise concern for subtle early acute appendicitis. Alternatively, the appearance could r epresent a developing mucocele and/or chronic change. Surgical consultation advised. 2. Hepatic steatosis. Correlate with liver function tests to exclude steatohepatitis as a cause for abdominal pain. Electronically signed by: Gume Baird M.D. 04/06/2019 5:10 PM
[2019-04-06] MEDS ORDERED: MIDAZOLAM HCL 1 MG/ML 2ML VIAL ONE (18:14)
[2019-04-06] MEDS ORDERED: fentaNYL citrate 100 MCG/2 ML VIAL ONE ×2 (18:15→20:17)
--- NOTE | 2019-04-06 18:19 | Surgery Consultation ---
Date of Consultation April 06, 2019 Assessment & Plan (1) Acute abdominal pain: pt is a 53 year-old female who presents to ER with 4 days history acute abdominal pain, CT scan Dx possible eraly acute appendicitis IMP: acute abdominal pain, possible acute appendicitis, Plan, I recommend to do diagnostic laparoscopy possible appendectomy, possible open, D/W benefits, risks and alternatives of the surgery, the risks - infection, bleeding, abscess, injury bowel, possible negative for appendicitis, but still need to do appendectomy, bowel obstruction, incisional hernia, , pt and her understood, they agree with the surgery, I answered all question, pt will admit to hospital after surgery, History of Present Illness History of Present Illness CC: abdominal pain HPI: pt is a 53 year-old female who presents to ER with 4 days history acute abdominal with nausea and vomiting, diarrhea, the pain is locate at RLQ and LUQ, now the most pain is located at RLQ, pt denies chest pain, no fever, pt has h istory of hiatal hernia in the past, pt is DM, HTN, pt had CT scan at ER today dx -IMPRESSION: 1. Findings raise concern for subtle early acute appendicitis. Alternatively, the appearance could represent a developing mucocele and/or chronic change. Surgical consultation advised. 2. Hepatic steatosis. Correlate with liver function tests to exclude steatohepatitis as a cause for abdominal pain. Allergies Allergy/AdvReac Type Severity Reaction Status Date / Time homatropine Allergy Severe ANNAPHYLACTIC Verified 04/06/19 16:27 SHOCK hydrocodone Allergy Severe ANNAPHYLACTIC Verified 04/06/19 16:27 SHOCK erythromycin base Allergy Intermediate RASH Verified 04/06/19 16:27 Sulfa (Sulfonamide Allergy Intermediate RASH Verified 04/06/19 16:27 Antibiotics) methylprednisolone Allergy Mild RASH Verified 04/06/19 16:27 ondansetron Allergy Mild Cardiac Verified 04/06/19 16:27 symptoms hydromorphone AdvReac Intermediate confusion Verified 04/06/19 16:27 Home Medications Home Medications Medication Instructions Recorded Confirmed Type lisinopril 10 mg PO HS #0 11/12/14 04/06/19 History metoprolol tartrate [Lopressor] 25 mg PO BID #0 tab 02/12/16 04/06/19 History hydrochlorothiazide 25 mg PO DAILY PRN #0 07/29/16 04/06/19 History loratadine [Claritin] 10 mg PO QAM #0 07/29/16 04/06/19 History omeprazole 40 mg PO HS #0 07/29/16 04/06/19 History ferrous sulfate 325 mg PO HS #0 08/09/16 04/06/19 History cholecalciferol (vitamin D3) 2,000 unit PO QAM #0 09/01/17 04/06/19 History levothyroxine 112 mcg PO QAM #0 09/01/17 04/06/19 History linaclotide [Linzess] 145 mcg PO QAM #0 12/11/17 04/06/19 History insulin glargine [Basaglar KwikPen 22 unit SUBCUT HS #0 03/26/18 04/06/19 History U-100 Insulin] venlafaxine [Effexor XR] 75 mg PO QAM #0 03/26/18 04/06/19 History clonazepam 0.5 mg PO TID PRN 04/06/19 04/06/19 History insulin lispro [Admelog U-100 1 sliding scale dose SUBCUT 04/06/19 04/06/19 History Insulin lispro] DIRECTED magnesium oxide 400 mg PO BID 04/06/19 04/06/19 History prednisone 40 mg PO DAILY 3 Days #6 tab 04/06/19 04/06/19 Rx rosuvastatin 10 mg PO HS 04/06/19 04/06/19 History Patient History Medical History Dyslipidemia (Chronic) Hypothyroidism (Chronic) GERD (gastroesophageal reflux disease) (Chronic) Hypertension (Chronic) Diabetes (Chronic) Lumbar radiculopathy (Chronic) Panic disorder with agoraphobia (Chronic) PTSD (post-traumatic stress disorder) (Chronic) Gastroparesis (Chronic) Social History Feels Safe at Home: Yes Smoking Status: Never smoker Review of Systems Constitutional: as per Subjective / HPI Ear, Nose, Mouth, Throat: as per Subjective / HPI Respiratory: as per Subjective / HPI Cardiovascular: as per Subjective / HPI Additional Comments: HTN, Chest pain, dyslipidemia Gastrointestinal: as per Subjective / HPI hiatal hernia, GERD Genitourinary: as per Subjective / HPI Integumentary: as per Subjective / HPI Neurologic: as per Subjective / HPI Psychiatric: as per Subjective / HPI Endocrine: as per Subjective / HPI DM, hypothyroidism Hematologic / Lymphatic: as per Subjective / HPI Physical Exam Constitutional: WD/WN, vitals as above well developed and well nourished ENMT: external ear and nose normal, oropharynx normal Neck: trachea midline, no thyromegaly trachea midline Respiratory: normal respiratory effort, lungs clear to auscultation normal respiratory effort Cardiovascular: RRR, no murmur, no edema Rate/Rhythm: regular rate and regular rhythm Heart Sounds: normal S1 and normal S2 Gastrointestinal (Abdomen): Percussion/Palpation: + abdomen tender and abdomen soft tenderness at RLQ and LUQ, no rebound pain, BS +, no distend, Neurologic: patellar DTR's 2+ bilat, sensation intact Psychiatric: Orientation: alert and oriented x 3 Lymphatic: no cervical or axillary lymphadenopathy Results & Data Vital Signs (Past 12 Hours) Vital Signs Temp Pulse Pulse Resp BP BP Pulse Ox 04/06/19 15:09 89 20 124/66 97 04/06/19 14:02 36.9 C 91 H 18 166/87 H 96 Laboratory Results Abnormal lab results 04/06/19 Range/Units 15:56 Glucose 141 H (70-99) mg/dl Total Protein 8.4 H (6.4-8.2) gm/dl Globulin 4.2 H (2.5-4.0) gm/dl Diagnostic Findings CT abd pelvis IV con only CLINICAL HISTORY: 53 years-old Female presenting with upper abdominal pain, nausea and vomiting, c/o LUQ abd pain. TECHNIQUE: Multidetector CT of the abdomen and pelvis was performed after the administration of intravenous contrast. IV contrast: 94 mL of Optiray 320. One or more dose lowering techniques were used consistent with the principles of ALARA (as low as reasonably achievable), including automatic exposure control, mA or kV adjustment to individual patient size, and/or use of iterative reconstruction. COMPARISON: 06/15/2017. CT DOSE (mGy.cm): The estimated cumulative dose is 1449.15 mGy.cm. FINDINGS: Investment Accountant topogram: Unremarkable. Lung bases: Normal heart size. No pericardial or pleural effusion. No focal infiltrate or nodule at the lung bases. Liver: Normal morphology. Density suggestive of hepatic steatosis. No focal lesion. Patent hepatic vasculature. Biliary: No intrahepatic or extrahepatic biliary ductal dilatation. Normal gallbladder. Pancreas: Normal. Spleen: Normal. Adrenal glands: Normal. Kidneys and ureters: Normal. No hydronephrosis. Bladder: Normal. Pelvic organs: Uterus and ovaries normal. Bowel: The appendix is dilated up to 8 mm, which represents a notable change from the prior exam when the appendix was normal in size. There is trace if any periappendiceal fat infiltration. No significant wall thickening of the appendix. There is fluid density within the appendiceal lumen. No bowel obstruction. Peritoneal cavity: No free fluid or intraperitoneal gas. Lymph nodes: No enlarged lymph nodes in the abdomen or pelvis. Vasculature: Atherosclerosis of the normal caliber abdominal aorta. IVC patent. Abdominal wall: Diastasis of the rectus abdominis. Musculoskeletal: Normal.
[2019-04-06] MEDS ORDERED: BUPIVACAINE 0.5 % 5 MG/1 ML MPF 30ML VIAL ONE (18:20)
[2019-04-06] MEDS ORDERED: BACITRACIN OINT 15 GM TUBE ONE (18:20)
[2019-04-06] MEDS ORDERED: LIDOCAINE HCL 1% 20 ML VIAL ONE (18:20)
--- NOTE | 2019-04-06 18:32 | History & Physical Bridge Note ---
Date of Service April 06, 2019 History & Physical Bridge Note I have examined the patient, reviewed the History & Physical and in the interval since the performance of the History & Physical I have noted the following changes of clinical significance: no changes noted
--- NOTE | 2019-04-06 18:38 | Anesthesiology Consultation ---
Date of Service April 06, 2019 Assessment & Plan (1) Encounter for pre-operative examination: Chart Review Chart Review: Acceptable Risk for Surgery and Patient NOT seen in Pre Admission Testing Consults Requested none Proposed Anesthesia Risk / Benefits Reviewed With: PT / POA / Parent / Guardian, Accepts Plan and Informed Consent Obtained History Surgery Operation Date: 04/06/19 19:00 Proposed Procedures p Laparoscopic Appendectomy - Nikki Pena MD Height/Weight Height: 5 ft 1 in Weight: 102.7 kg Allergies Allergy/AdvReac Type Severity Reaction Status Date / Time homatropine Allergy Severe ANNAPHYLACTIC Verified 04/06/19 16:27 SHOCK hydrocodone Allergy Severe ANNAPHYLACTIC Verified 04/06/19 16:27 SHOCK erythromycin base Allergy Intermediate RASH Verified 04/06/19 16:27 Sulfa (Sulfonamide Allergy Intermediate RASH Verified 04/06/19 16:27 Antibiotics) methylprednisolone Allergy Mild RASH Verified 04/06/19 16:27 ondansetron Allergy Mild Cardiac Verified 04/06/19 16:27 symptoms hydromorphone AdvReac Intermediate confusion Verified 04/06/19 16:27 Medications Home Medications Medication Instructions Recorded Confirmed Last Taken lisinopril 10 mg PO HS #0 11/12/14 04/06/19 04/05/19 metoprolol tartrate [Lopressor] 25 mg PO BID #0 tab 02/12/16 04/06/19 04/05/19 hydrochlorothiazide 25 mg PO DAILY PRN #0 07/29/16 04/06/19 Unknown loratadine [Claritin] 10 mg PO QAM #0 07/29/16 04/06/19 04/05/19 omeprazole 40 mg PO HS #0 07/29/16 04/06/19 04/05/19 ferrous sulfate 325 mg PO HS #0 08/09/16 04/06/19 04/05/19 cholecalciferol (vitamin D3) 2,000 unit PO QAM #0 09/01/17 04/06/19 04/05/19 levothyroxine 112 mcg PO QAM #0 09/01/17 04/06/19 04/05/19 linaclotide [Linzess] 145 mcg PO QAM #0 12/11/17 04/06/19 04/05/19 insulin glargine [Basaglar KwikPen 22 unit SUBCUT HS #0 03/26/18 04/06/19 04/05/19 U-100 Insulin] venlafaxine [Effexor XR] 75 mg PO QAM #0 03/26/18 04/06/19 04/05/19 clonazepam 0.5 mg PO TID PRN 04/06/19 04/06/19 Unknown insulin lispro [Admelog U-100 1 sliding scale dose SUBCUT 04/06/19 04/06/19 Unknown Insulin lispro] DIRECTED magnesium oxide 400 mg PO BID 04/06/19 04/06/19 04/05/19 prednisone 40 mg PO DAILY 3 Days #6 tab 04/06/19 04/06/19 Unknown rosuvastatin 10 mg PO HS 04/06/19 04/06/19 04/05/19 Past Medical History Medical History Acute abdominal pain Dyslipidemia (Chronic) Hypothyroidism (Chronic) GERD (gastroesophageal reflux disease) (Chronic) Hypertension (Chronic) Diabetes (Chronic) Lumbar radiculopathy (Chronic) Panic disorder with agoraphobia (Chronic) PTSD (post-traumatic stress disorder) (Chronic) Gastroparesis (Chronic) Exercise / Class Metabolic Activity II 4-5 Yardwork/Stairs/Walk up hill Past Anesthesia History No Hx of Anesthesia Complications and No Family Hx of Anesthesia Complications History of PONV No Hx of PONV and No Hx of Motion Sickness Social History Smoking Status: Never smoker Physical Exam Vital Signs Last Vital Signs Temp 36.9 C 04/06/19 14:02 Pulse 75 04/06/19 18:00 Resp 16 04/06/19 18:00 BP 136/91 04/06/19 18:00 Pulse Ox 99 04/06/19 18:00 ENMT Mouth: no TMJ abnormality Thyromental Distance: > or= 3.5 Finger Breadths Mallampati Class: II Neck normal visual inspection Respiratory normal respiratory effort Auscultation: lungs clear to auscultation bilaterally Cardiovascular Rate/Rhythm: regular rate and regular rhythm Heart Sounds: no murmur Vessels: no carotid bruit Neurologic moves all extremities Psychiatric Orientation: alert and oriented x 3 Testing Laboratory Results 04/06/19 15:56 04/06/19 15:56
[2019-04-06] MEDS ORDERED: ePHEDrine sulfate 50 MG/ML AMP IV PRN ×2 (18:42→20:19)
[2019-04-06] MEDS ORDERED: cefOXitin 2,000 MG/60 ML BAG IV ONE (18:45)
[2019-04-06] MEDS ORDERED: PROPOFOL IV EMULSION 10 MG/ML 20 ML VIAL IV ONE (19:14)
[2019-04-06] MEDS ORDERED: ROCURONIUM BROMIDE 10 MG/ML 5 ML VIAL ONE (19:14)
[2019-04-06] MEDS ORDERED: SUCCINYLCHOLINE CHLORIDE 20 MG/ML 10 ML VIAL ONE (19:15)
[2019-04-06] MEDS ORDERED: LIDOCAINE HCL 2% 2 ML VIAL/AMP(20MG/ML) INFIL ONE (19:15)
[2019-04-06] MEDS ORDERED: PROMETHAZINE HCL INJ 25 MG/ML 1 ML VIAL ONE (19:15)
[2019-04-06] MEDS ORDERED: DiphenhydrAMINE HCL 50 MG/ML VIAL ONE (19:15)
--- NOTE | 2019-04-06 19:48 | Post Operative Brief Note ---
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
[2019-04-06] MEDS ORDERED: DEXTROSE 50% 50 ML SYRINGE IV PRN (19:51)
[2019-04-06] MEDS ORDERED: GLUCOSE 40% GEL 15 GM TUBE PO PRN (19:51)
[2019-04-06] MEDS ORDERED: ONDANSETRON INJ 2 MG/ML 2 ML VIAL IV PRN (19:51)
[2019-04-06] MEDS ORDERED: GLUCOSE 10 TABS/TUBE PO PRN (19:51)
[2019-04-06] MEDS ORDERED: GLUCAGON FOR INJ 1 MG VIAL SQ PRN (19:51)
[2019-04-06] MEDS ORDERED: CARBOHYDRATES FOR HYPOGLYCEMIA PO PRN (19:51)
[2019-04-06] MEDS ORDERED: clonazePAM 0.5 MG TAB PO PRN (20:02)
[2019-04-06] MEDS ORDERED: hydroCHLOROthiazide 25 MG TAB PO PRN (20:02)
[2019-04-06] MEDS: fentaNYL citrate 100 MCG/2 ML VIAL IV PRN ×3 (20:17→20:49)
[2019-04-06] MEDS ORDERED: ACETAMINOPHEN 1,000 MG/100 ML VIAL IV ONE (20:19)
--- NOTE | 2019-04-06 20:23 | Anesthesiology Progress Note ---
Date of Service April 06, 2019 Anesthesia Post Procedure Vital Signs Vital Signs: Temp Pulse Pulse Pulse Resp BP BP 04/06/19 20:08 36.9 C 94 H 24 177/86 H 04/06/19 18:25 37.3 C 89 20 191/90 H 04/06/19 18:00 75 16 04/06/19 15:09 89 20 04/06/19 14:02 36.9 C 91 H 18 166/87 H BP Pulse Ox 04/06/19 20:08 97 04/06/19 18:25 98 04/06/19 18:00 136/91 99 04/06/19 15:09 124/66 97 04/06/19 14:02 96 Pain Intensity Lower Abdomen: Pain Intensity: 9 Transfer of Care Handoff Completed per policy Notes Mental Status: alert / awake / arousable Patient Amnestic to Procedure: Yes Nausea / Vomiting: adequately controlled Pain: adequately controlled Airway Patency, RR, SpO2: stable & adequate BP & HR: stable & adequate Hydration State: stable & adequate Anesthetic Complications: no major complications apparent and Pt Satisfied with anesthetic care
[2019-04-06] MEDS ORDERED: ACETAMINOPHEN 1000 MG/100 ML IV IV ONE (20:25)
--- NOTE | 2019-04-06 20:41 | Emergency Department Note ---
Entered by Britta Crain acting as a scribe for History of Present Illness General Chief complaint: Congestion Stated complaint: SORE THROAT,DRAINAGE, VOMITING Time Seen by Provider: 04/06/19 15:16 Source: patient Mode of arrival: ambulatory Limitations: no limitations History of Present Illness Onset (ago): day(s) 4 Location: head (face) Radiation: non-radiation Pain Consistency: + constant Maximum Pain Intensity: 7 Current Pain Intensity: 7 Relieved By: + medication (nasal spray) Exacerbated By: + none Associated symptoms: + headaches and + other (+sore throat, +abdominal pain) Treatments prior to arrival: other (nasal spray) The patient is a 53 year old female who presents to the ED with complaints of congestion for the past 4 days. She states the mucous in her nose is "thick and yucky" and rates her discomfort as a 7/10 in severity. Nasal sprays have provided minimal relief. She also complains of a sore throat, headache and sinus pain. She denies this being the worse headache of her life. She can still touch her neck to her chest. The patient also complains of left sided abdominal pain that radiates into her shoulder. Home Medications Home Medications Medication Instructions Recorded Confirmed Type lisinopril 10 mg PO HS #0 11/12/14 04/06/19 History metoprolol tartrate [Lopressor] 25 mg PO BID #0 tab 02/12/16 04/06/19 History hydrochlorothiazide 25 mg PO DAILY PRN #0 07/29/16 04/06/19 History loratadine [Claritin] 10 mg PO QAM #0 07/29/16 04/06/19 History omeprazole 40 mg PO HS #0 07/29/16 04/06/19 History ferrous sulfate 325 mg PO HS #0 08/09/16 04/06/19 History cholecalciferol (vitamin D3) 2,000 unit PO QAM #0 09/01/17 04/06/19 History levothyroxine 112 mcg PO QAM #0 09/01/17 04/06/19 History linaclotide [Linzess] 145 mcg PO QAM #0 12/11/17 04/06/19 History insulin glargine [Basaglar KwikPen 22 unit SUBCUT HS #0 03/26/18 04/06/19 H istory U-100 Insulin] venlafaxine [Effexor XR] 75 mg PO QAM #0 03/26/18 04/06/19 History clonazepam 0.5 mg PO TID PRN 04/06/19 04/06/19 History insulin lispro [Admelog U-100 1 sliding scale dose SUBCUT 04/06/19 04/06/19 History Insulin lispro] DIRECTED magnesium oxide 400 mg PO BID 04/06/19 04/06/19 History prednisone 40 mg PO DAILY 3 Days #6 tab 04/06/19 04/06/19 Rx rosuvastatin 10 mg PO HS 04/06/19 04/06/19 History Allergies Allergy/AdvReac Type Severity Reaction Status Date / Time homatropine Allergy Severe ANNAPHYLACTIC Verified 04/06/19 16:27 SHOCK hydrocodone Allergy Severe ANNAPHYLACTIC Verified 04/06/19 16:27 SHOCK erythromycin base Allergy Intermediate RASH Verified 04/06/19 16:27 Sulfa (Sulfonamide Allergy Intermediate RASH Verified 04/06/19 16:27 Antibiotics) methylprednisolone Allergy Mild RASH Verified 04/06/19 16:27 ondansetron Allergy Mild Cardiac Verified 04/06/19 16:27 symptoms hydromorphone AdvReac Intermediate confusion Verified 04/06/19 16:27 Past Med/Surg History Medical History Acute abdominal pain Dyslipidemia (Chronic) Hypothyroidism (Chronic) GERD (gastroesophageal reflux disease) (Chronic) Hypertension (Chronic) Diabetes (Chronic) Lumbar radiculopathy (Chronic) Panic disorder with agoraphobia (Chronic) PTSD (post-traumatic stress disorder) (Chronic) Gastroparesis (Chronic) Social History Feels Safe at Home: Yes Smoking Status: Never smoker Review of Systems See HPI for pertinent positives & negatives. and A total of 10 systems reviewed and were otherwise negative Physical Exam Vital Signs Vital Signs - 24 hr 04/06/19 14:02 04/06/19 15:09 04/06/19 18:00 Temperature 36.9 C Temperature Source Oral Sepsis Recent Fever Within 48 Hours No Sepsis Action Taken by Nursing No Action Required Pulse Rate 91 H Pulse Rate [Apical] Pulse Rate [Left Finger] 89 75 Pulse Rhythm [Apical] Pulse Rhythm [Left Finger] Regular Pulse Strength [Left Finger] Normal Respiratory Rate 18 20 16 Respiratory Effort / Characteristics Non-Labored Non-Labored Spontaneous Respiratory Depth Normal Normal Respiratory Pattern Regular Regular Blood Pressure 166/87 H Blood Pressure [Left Arm] Blood Pressure [Right Arm] 124/66 136/91 Blood Pressure Mean 113 Blood Pressure Mean [Left Arm] Blood Pressure Mean [Right Arm] 85 106 Blood Pressure Position Sitting Blood Pressure Position [Left Arm] Blood Pressure Position [Right Arm] Lying Lying Pulse Oximetry 96 97 99 Oxygen Delivery Method Room Air Room Air Room Air Oxygen Flow Rate 04/06/19 18:25 04/06/19 20:08 04/06/19 20:15 Temperature 37.3 C 36.9 C Temperature Source Oral Temporal Artery Scan Temporal Artery Scan Sepsis Recent Fever Within 48 Hours Sepsis Action Taken by Nursing Pulse Rate Pulse Rate [Apical] 89 94 H 90 Pulse Rate [Left Finger] Pulse Rhythm [Apical] Regular Regular Regular Pulse Rhythm [Left Finger] Pulse Strength [Left Finger] Respiratory Rate 20 24 22 Respiratory Effort / Characteristics Non-Labored Spontaneous Non-Labored Non-Labored Respiratory Depth Normal Normal Normal Respiratory Pattern Regular Regular Regular Blood Pressure Blood Pressure [Left Arm] 191/90 H 177/86 H 157/71 H Blood Pressure [Right Arm] Blood Pressure Mean Blood Pressure Mean [Left Arm] 123 116 99 Blood Pressure Mean [Right Arm] Blood Pressure Position Blood Pressure Position [Left Arm] Semi-fowlers Lying Lying Blood Pressure Position [Right Arm] Pulse Oximetry 98 97 94 Oxygen Delivery Method Room Air Oxymask Oxymask Oxygen Flow Rate 10 10 04/06/19 20:25 Temperature Temperature Source Temporal Artery Scan Sepsis Recent Fever Within 48 Hours Sepsis Action Taken by Nursing Pulse Rate Pulse Rate [Apical] 83 Pulse Rate [Left Finger] Pulse Rhythm [Apical] Regular Pulse Rhythm [Left Finger] Pulse Strength [Left Finger] Respiratory Rate 20 Respiratory Effort / Characteristics Non-Labored Respiratory Depth Normal Respiratory Pattern Regular Blood Pressure Blood Pressure [Left Arm] 175/98 H Blood Pressure [Right Arm] Blood Pressure Mean Blood Pressure Mean [Left Arm] 123 Blood Pressure Mean [Right Arm] Blood Pressure Position Blood Pressure Position [Left Arm] Lying Blood Pressure Position [Right Arm] Pulse Oximetry 99 Oxygen Delivery Method Oxymask Oxygen Flow Rate 15 GENERAL: Awake, alert, well-appearing, in no acute distress HENT: Normocephalic, atraumatic. Oropharynx unremarkable. No evidence of meningitis or encephalitis on exam. EYES: Normal conjunctiva. Sclera non-icteric. NECK: Supple. No nuchal rigidity. FROM. No JVD. RESPIRATORY: Clear to auscultation. CARDIAC: Regular rate, normal rhythm. Extremities warm and well perfused. Pulses equal. ABDOMEN: Soft, non-distended. Mildly tender in RLQ. No rebound or guarding. No masses. RECTAL: Deferred. MUSCULOSKELETAL: Chest examination reveals no tenderness. The back is symmetrical on inspection without obvious abnormality. There is no CVA tenderness to palpation. No joint edema. LOWER EXTREMITIES: Calves are equal size bilaterally and non-tender. No edema. No discoloration. NEURO: Normal sensorium. No sensory or motor deficits noted. SKIN: No rash or jaundice noted. Course 1600: The patient was evaluated in room C7 and a complete history and physical were performed. 1725: I discussed the patients case with Dr. Pena, [facility]. The patient will be further evaluated. 1730: I reevaluated the patient. She is resting comfortably. I discussed my recommendation she remain in the hospital for further evaluation and management and she verbalized complete understanding and agreement. Consultations Consultation #1: I discussed the patients case with Dr. Pena, [facility]. The patient will be further evaluated. Time: 17:25 Administered Medications Acetaminophen (Ofirmev) 1,000 mg in 100 mls @ 400 mls/hr IV ONE ONE Stop: 04/06/19 20:33 Last Admin: 04/06/19 20:26 Dose: 400 mls/hr Documented by: [id number] Discontinued Medications Amoxicillin/Clavulanate Potassium (Augmentin 875mg) 1 tab PO NOW ONE Stop: 04/06/19 16:43 Last Admin: 04/06/19 18:11 Dose: Not Given Documented by: [id number] Bacitracin (Bacitracin) Confirm Administered Dose 45 appln .ROUTE .STK-MED ONE Stop: 04/06/19 18:21 Last Admin: 04/06/19 19:21 Dose: Not Given Documented by: [id number] Bupivacaine HCl (Marcaine 0.5% Mpf) Confirm Administered Dose 30 ml .ROUTE .STK- MED ONE Stop: 04/06/19 18:21 Last Admin: 04/06/19 19:44 Dose: 30 ml Documented by: [id number] Acetaminophen (Ofirmev) 1,000 mg in 100 mls @ 400 mls/hr IV NOW STA Stop: 04/06/19 15:51 Last Infusion: 04/06/19 17:41 Dose: 0 mls/hr Documented by: [id number] Admin: 04/06/19 16:40 Dose: 400 mls/hr Documented by: [id number] Sodium Chloride (Nss 1000ml) 1,000 mls @ 999 mls/hr IV .Q1H1M ONE Stop: 04/06/19 16:37 Last Infusion: 04/06/19 17:41 Dose: 0 mls/hr Documented by: [id number] Admin: 04/06/19 16:30 Dose: 999 mls/hr Documented by: [id number] Famotidine (Pepcid 20mg Iv Push) 20 mg in 5 mls @ 2.5 mls/min IV NOW STA Stop: 04/06/19 15:43 Last Admin: 04/06/19 16:50 Dose: 2.5 mls/min Documented by: [id number] Cefoxitin Sodium (Mefoxin) 2,000 mg in 60 mls @ 100 mls/hr IV NOW ONE Stop: 04/06/19 19:20 Last Admin: 04/06/19 18:50 Dose: 100 mls/hr Documented by: [id number] Lidocaine HCl (Xylocaine 1% (Local)) Confirm Administered Dose 20 ml .ROUTE .STK-MED ONE Stop: 04/06/19 18:21 Last Admin: 04/06/19 19:43 Dose: 20 ml Documented by: [id number] Metoclopramide HCl (Reglan) 5 mg IV ONE ONE Stop: 04/06/19 15:38 Last Admin: 04/06/19 16:45 Dose: 5 mg Documented by: [id number] Sodium Chloride ([place] Nasal) 2 sprays NA NOW ONE Stop: 04/06/19 16:42 Last Admin: 04/06/19 18:12 Dose: 2 sprays Documented by: [id number] Medical Decision Making Differential Diagnosis Differential diagnoses includes but is not limited to gastritis, peptic ulcer disease, GERD, gallbladder disease, pancreatitis, small bowel obstruction, acute coronary syndrome, pericarditis, ischemic bowel, irritable bowel disease, irritable bowel syndrome, appendicitis, diverticulitis, malignancy, hernia, urinary tract infection, torsion, /ectopic , perforation, trauma, infectious. Medical Records Attestation: I reviewed the patient's medical records. Home Medications Current Medication List: was personally reviewed by me Laboratory Data Attestation: I reviewed the patient's lab results. Result diagrams: 04/06/19 15:56 04/06/19 15:56 Lab Results 04/06/19 04/06/19 04/06/19 Range/Units 15:56 15:56 18:29 WBC 7.17 (4.8-10.8) K/uL RBC 4.65 (4.2-5.4) M/uL Hgb 14.6 (12.0-16.0) g/dL Hct 41.3 (37-47) % MCV 88.8 (80-100) fL MCH 31.4 (25-34) pg MCHC 35.4 (32-36) g/dL RDW Std Deviation 43.3 (36.4-46.3) fL RDW Coeff of Alma 13.3 (11.5-14.5) % Plt Count 228 (130-400) K/uL MPV 9.3 (7.4-10.4) fL Immature Gran % (Auto) 0.1 % Neut % (Auto) 57.7 % Lymph % (Auto) 33.1 % Pierce % (Auto) 7.3 % Eos % (Auto) 1.5 % Baso % (Auto) 0.3 % Immature Gran # (Auto) 0.01 (0.00-0.02) K/uL Neut # (Auto) 4.14 (1.4-6.5) K/uL Lymph # (Auto) 2.37 (1.2-3.4) K/uL Pierce # (Auto) 0.52 (0.11-0.59) K/uL Eos # (Auto) 0.11 (0-0.5) K/uL Baso # (Auto) 0.02 (0-0.2) K/uL Sodium 139 (136-145) mmol/L Potassium 4.4 (3.5-5.1) mmol/L Chloride 106 (98-107) mmol/L Carbon Dioxide 25 (21-32) mmol/L Anion Gap 8.0 (3-11) BUN 12 (7-18) mg/dl Creatinine 1.01 (0.6-1.2) mg/dl Est Cr Clr Drug Dosing 71.8 ml/min Est GFR ( Amer) 74.1 Est GFR (Non-Af Amer) 64.0 BUN/Creatinine Ratio 12.1 (10-20) Glucose 141 H (70-99) mg/dl POC Glucose 116 H (70-99) Calcium 10.0 (8.5-10.1) mg/dl Total Bilirubin 0.6 (0.2-1) mg/dl AST 24 (15-37) U/L ALT 32 (12-78) U/L Alkaline Phosphatase 84 (45-117) U/L Troponin I < 0.015 (0-0.045) ng/ml Total Protein 8.4 H (6.4-8.2) gm/dl Albumin 4.2 (3.4-5.0) gm/dl Globulin 4.2 H (2.5-4.0) gm/dl Albumin/Globulin Ratio 1.0 (0.9-2) Lipase 116 (73-393) U/L 04/06/19 Range/Units 20:10 WBC (4.8-10.8) K/uL RBC (4.2-5.4) M/uL Hgb (12.0-16.0) g/dL Hct (37-47) % MCV (80-100) fL MCH (25-34) pg MCHC (32-36) g/dL RDW Std Deviation (36.4-46.3) fL RDW Coeff of Alma (11.5-14.5) % Plt Count (130-400) K/uL MPV (7.4-10.4) fL Immature Gran % (Auto) % Neut % (Auto) % Lymph % (Auto) % Pierce % (Auto) % Eos % (Auto) % Baso % (Auto) % Immature Gran # (Auto) (0.00-0.02) K/uL Neut # (Auto) (1.4-6.5) K/uL Lymph # (Auto) (1.2-3.4) K/uL Pierce # (Auto) (0.11-0.59) K/uL Eos # (Auto) (0-0.5) K/uL Baso # (Auto) (0-0.2) K/uL Sodium (136-145) mmol/L Potassium (3.5-5.1) mmol/L Chloride (98-107) mmol/L Carbon Dioxide (21-32) mmol/L Anion Gap (3-11) BUN (7-18) mg/dl Creatinine (0.6-1.2) mg/dl Est Cr Clr Drug Dosing ml/min Est GFR ( Amer) Est GFR (Non-Af Amer) BUN/Creatinine Ratio (10-20) Glucose (70-99) mg/dl POC Glucose 105 H (70-99) Calcium (8.5-10.1) mg/dl Total Bilirubin (0.2-1) mg/dl AST (15-37) U/L ALT (12-78) U/L Alkaline Phosphatase (45-117) U/L Troponin I (0-0.045) ng/ml Total Protein (6.4-8.2) gm/dl Albumin (3.4-5.0) gm/dl Globulin (2.5-4.0) gm/dl Albumin/Globulin Ratio (0.9-2) Lipase (73-393) U/L Imaging Data Radiologist's Impression: Radiology results as stated below per my review and the radiologist's interpretation: CT head/brain wo con CLINICAL HISTORY: 53 years-old Female presenting with Pt c/o sinus pressure. TECHNIQUE: Multidetector CT imaging of the head was performed without the use of intravenous contrast. IV contrast: None. One or more dose lowering techniques were used consistent with the principles of ALARA (as low as reasonably achievable), including automatic exposure control, mA or kV adjustment to individual patient size, and/or use of iterative reconstruction. COMPARISON: 02/05/2016. CT DOSE (mGy.cm): The estimated cumulative dose is 537.48 mGy.cm. FINDINGS: [employer] topogram: Unremarkable. Ventricles and sulci normal in size. No hemorrhage. Brain parenchyma normal in appearance with preserved bonilla-white differentiation. No acute territorial infarct. No mass effect or midline shift. No extra-axial fluid collection. Paranasal sinuses and mastoid air cells clear. Calvarium intact. IMPRESSION: 1. No acute intracranial abnormality. Electronically signed by: Gume Baird M.D. 04/06/2019 5:[address] abd pelvis IV con only CLINICAL HISTORY: 53 years-old Female presenting with upper abdominal pain, nausea and vomiting, c/o LUQ abd pain. TECHNIQUE: Multidetector CT of the abdomen and pelvis was performed after the administration of intravenous contrast. IV contrast: 94 mL of Optiray 320. One or more dose lowering techniques were used consistent with the principles of ALARA (as low as reasonably achievable), including automatic exposure control, mA or kV adjustment to individual patient size, and/or use of iterative reconstruction. COMPARISON: 06/15/2017. CT DOSE (mGy.cm): The estimated cumulative dose is 1449.15 mGy.cm. FINDINGS: [employer] topogram: Unremarkable. Lung bases: Normal heart size. No pericardial or pleural effusion. No focal infiltrate or nodule at the lung bases. Liver: Normal morphology. Density suggestive of hepatic steatosis. No focal le jaquan. Patent hepatic vasculature. Biliary: No intrahepatic or extrahepatic biliary ductal dilatation. Normal gallbladder. Pancreas: Normal. Spleen: Normal. Adrenal glands: Normal. Kidneys and ureters: Normal. No hydronephrosis. Bladder: Normal. Pelvic organs: Uterus and ovaries normal. Bowel: The appendix is dilated up to 8 mm, which represents a notable change from the prior exam when the appendix was normal in size. There is trace if any periappendiceal fat infiltration. No significant wall thickening of the appendix. There is fluid density within the appendiceal lumen. No bowel obst ruction. Peritoneal cavity: No free fluid or intraperitoneal gas. Lymph nodes: No enlarged lymph nodes in the abdomen or pelvis. Vasculature: Atherosclerosis of the normal caliber abdominal aorta. IVC patent. Abdominal wall: Diastasis of the rectus abdominis. Musculoskeletal: Normal. IMPRESSION: 1. Findings raise concern for subtle early acute appendicitis. Alternatively, the appearance could represent a developing mucocele and/or chronic change. Surgical consultation advised. 2. Hepatic steatosis. Correlate with liver function tests to exclude steatohepatitis as a cause for abdominal pain. Electronically signed by: Gume Baird M.D. 04/06/2019 5:10 PM Blood Pressure Blood Pressure Findings: Normal blood pressure Blood Pressure Disposition: did not require urgent referral MDM Narrative This is a 53-year-old female who presents emergency department complaining of abdominal pain. Using shared medical decision-making with the patient the decision was made to send the patient for CAT scan of the abdomen pelvis. This is concerning for acute appendicitis. Based on this I did discuss the case with the surgeon who agreed to see the patient. is going to take the patient to the operating room. Impression & Plan Abdominal pain, Acute appendicitis Discharge Plan Visit Data *Final* Discharge Date/Time: 04/06/19 18:26 Chief Complaint: Congestion Stated Complaint: SORE THROAT,DRAINAGE, VOMITING ED Provider: Cheko Eddy ED Midlevel Provider: Daniel Young Discharge Problem: Abdominal pain, Acute appendicitis Patient Disposition: Still a Patient Discharge Instructions Interventions: ED Discharge Assessment Last Done: 04/06/19 18:26 Discharge Problem: Abdominal pain Qualifiers: Abdominal location: generalized Qualified Code(s): R10.84 - Generalized abdominal pain Acute appendicitis Qualifiers: Acute appendicitis type: with localized peritonitis Appendicitis gangrene presence: unspecified whether gangrene present Appendicitis perforation presence: without perforation Appendicitis abscess presence: without abscess Qualified Code(s): K35.30 - Acute appendicitis with localized peritonitis, without perforation or gangrene The scribe's documentation has been prepared under my direction and personally reviewed by me in its entirety. I confirm that the note above accurately reflects all work, treatment, procedures, and medical decision making performed by me.
[2019-04-06] MEDS ORDERED: PROMETHAZINE HCL 12.5 MG in SODIUM CHLORIDE 0.9% 50 ML IV ONE (20:45)
[2019-04-06] MEDS: MoRPHine SULFATE 2 MG/ML CARP IV PRN (21:56)
[2019-04-06] MEDS: LACTATED RINGER'S 1,000 ML IV SCH (21:56)
[2019-04-06] MEDS: FERROUS SULFATE 325 MG TAB PO SCH (23:13)
[2019-04-06] MEDS: METOPROLOL TARTRATE 25 MG TAB PO SCH (23:14)
[2019-04-06] MEDS: ROSUVASTATIN CALCIUM 10 MG TAB PO SCH (23:14)
[2019-04-06] MEDS: MAGNESIUM OXIDE 400 MG TAB PO SCH (23:14)
[2019-04-06] MEDS: PANTOprazole 40 MG TAB PO SCH (23:14)
[2019-04-06] MEDS: LISINOPRIL 10 MG TAB PO SCH (23:14)
[2019-04-06] MEDS: INSULIN GLARGINE SOLOSTAR 100 UNITS/ML 3 ML PEN SQ SCH (23:16)
[2019-04-06] MEDS: metroNIDAZOLE 500 MG/100 ML BAG IV SCH (23:21)
[2019-04-06] MEDS: CIPROFLOXACIN 400 MG/200 ML BAG IV SCH (23:21)
[2019-04-06] MEDS ORDERED: COUGH DROP (SUGAR FREE) LOZ 24 LOZ/1 BOX BUCCAL ONE (23:24)
[2019-04-07] MEDS: LORazepam 0.5 MG/1 ML VIAL IV PRN ×2 (00:25→06:39)
--- NOTE | 2019-04-07 02:10 | Operative Report ---
DATE OF OPERATION: 04/06/2019 PREOPERATIVE DIAGNOSES: Acute abdominal pain, acute appendicitis. POSTOPERATIVE DIAGNOSES: Acute abdominal pain, acute appendicitis. PROCEDURE: Laparoscopic appendectomy, lysis of adhesions. SURGEON: Nikki Pena MD. ANESTHESIA: General. ESTIMATED BLOOD LOSS: About 10 mL. FINDINGS: Acute appendicitis with adhesion inside the abdominal cavity. COMPLICATIONS: None. INDICATIONS FOR THE PROCEDURE: This is a 53-year-old female who presented to the ED with 4 days history of acute abdominal pain. The patient had a CT scan diagnosis of early acute appendicitis. I recommended to do the laparoscopy, appendectomy, possible open, possible diagnostic laparoscopy. I did talk to the patient and the patient's about the benefit and risk, alternate procedure. I indicated the risks may include but not limited such as bleeding, infection, abscess, injury to the bowel, bowel obstruction, incisional hernia, even negative acute appendicitis, we still need to do the appendectomy DVT, even . They understand. They agreed to proceed with procedure. I answered all questions. DETAILS OF PROCEDURE: We brought the patient to the OR, put the patient in the supine position. The patient received SCD on bilateral legs to prevent DVT. Also, patient received 2 grams cefoxitin IV for prophylactic antibiotic. The patient received general anesthesia without difficulty. Also, patient received Gonzalez catheter insertion. The abdomen was prepped and draped in routine sterile fashion. After time out, I injected local anesthesia just above umbilical by using 1% lidocaine mixed with 0.5% Marcaine. I then made a small incision just above umbilicus, opened fascia and opened peritoneum under direct vision, put a [place] trocar in, connected to CO2 to create pneumoperitoneum. Flow rate at 6 liter per minute. Pressure not more than 14 mmHg and we put a camera in, looked around the abdomen, shows there was some adhesion and scar inside the lower abdomen and we looked at left upper quadrant, no significant finding. No mass, no inflammation on the left upper quadrant area and then at this moment, we put another two 5 mm trocar on the left lower quadrant area. So we mobilized cecum found the patient had acute appendicitis. Appendix showing enlarged inflammation with diagnosis of acute appendicitis, so I used the harmonic to take down the mesoappendix and rechecked no active bleeding. Then, we used a 45 mm Endo-KLAUDIA staple transection on the base of the appendix, rechecked a staple line intact and no leak and no active bleeding. Then we removed the appendix through the catch bag then we reinserted Alka trocar and connected to CO2 to create pneumoperitoneum, again looked around the abdomen, no active bleeding, no leak from the staple line, then we removed all trocar under direct vision. No active bleeding from the trocar sites. Pneumoperitoneum was released. Then I closed the umbilical incision, fascial layer by using #1 Vicryl [id number] x2, closed subcutaneous layer by using 2-0 Vicryl interrupted and closed skin by using 4-0 Vicryl continuous running, closed another two 5 mm trocar site skin only by using 4-0 Vicryl. Then we put the dressing on. The patient tolerated the procedure well. All instrument, needle and sponge count were correct x2 at the end of case. The patient transferred to recovery room in stable condition. Specimen sent to pathology. After procedure, I did talk to the patient's about the OR finding and procedure we did, he understands. I attest to the content of the Intraoperative Record and any orders documented therein. Any exceptions are noted below. SANTOSH
[2019-04-07] MEDS: MoRPHine SULFATE 2 MG/ML CARP IV PRN ×2 (02:32→15:37)
--- NOTE | 2019-04-07 03:11 | Internal Medicine Consult Note ---
Date of Consultation April 07, 2019 Assessment & Plan (1) Encounter for consultation: Thank you for this consultation. We will follow the patient with you during their hospital stay. My cell # is [phone]. Dr. Adamson will be assuming medical management on 04/07. You can reach a member of the [facility] Medicine Team 14/04 via pager @ [phone]. History of Present Illness Attending Physician: Nikki Pena MD Allergies Allergy/AdvReac Type Severity Reaction Status Date / Time homatropine Allergy Severe ANNAPHYLACTIC Verified 04/06/19 16:27 SHOCK hydrocodone Allergy Severe ANNAPHYLACTIC Verified 04/06/19 16:27 SHOCK erythromycin base Allergy Intermediate RASH Verified 04/06/19 16:27 Sulfa (Sulfonamide Allergy Intermediate RASH Verified 04/06/19 16:27 Antibiotics) methylprednisolone Allergy Mild RASH Verified 04/06/19 16:27 ondansetron Allergy Mild Cardiac Verified 04/06/19 16:27 symptoms hydromorphone AdvReac Intermediate confusion Verified 04/06/19 16:27 Home Medications Home Medications Medication Instructions Recorded Confirmed Type lisinopril 10 mg PO HS #0 11/12/14 04/06/19 History metoprolol tartrate [Lopressor] 25 mg PO BID #0 tab 02/12/16 04/06/19 History hydrochlorothiazide 25 mg PO DAILY PRN #0 07/29/16 04/06/19 History loratadine [Claritin] 10 mg PO QAM #0 07/29/16 04/06/19 History omeprazole 40 mg PO HS #0 07/29/16 04/06/19 History ferrous sulfate 325 mg PO HS #0 08/09/16 04/06/19 History cholecalciferol (vitamin D3) 2,000 unit PO QAM #0 09/01/17 04/06/19 History levothyroxine 112 mcg PO QAM #0 09/01/17 04/06/19 History linaclotide [Linzess] 145 mcg PO QAM #0 12/11/17 04/06/19 History insulin glargine [Basaglar KwikPen 22 unit SUBCUT HS #0 03/26/18 04/06/19 History U-100 Insulin] venlafaxine [Effexor XR] 75 mg PO QAM #0 03/26/18 04/06/19 History clonazepam 0.5 mg PO TID PRN 04/06/19 04/06/19 History insulin lispro [Admelog U-100 1 sliding scale dose SUBCUT 04/06/19 04/06/19 History Insulin lispro] DIRECTED magnesium oxide 400 mg PO BID 04/06/19 04/06/19 History prednisone 40 mg PO DAILY 3 Days #6 tab 04/06/19 04/06/19 Rx rosuvastatin 10 mg PO HS 04/06/19 04/06/19 History Patient History Medical History Acute abdominal pain Dyslipidemia (Chronic) Hypothyroidism (Chronic) GERD (gastroesophageal reflux disease) (Chronic) Hypertension (Chronic) Diabetes (Chronic) Lumbar radiculopathy (Chronic) Panic disorder with agoraphobia (Chronic) PTSD (post-traumatic stress disorder) (Chronic) Gastroparesis (Chronic) Social History Preferred Language: P[place] Communication Ability: Effective Forming 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 Required: No Beliefs That Will Affect Care: None Current Living Situation: Spouse and Family Other Information That Helps Us Care for You: No Feels Safe at Home: Yes Safety Concerns: Feels Safe At This Time Smoking Status: Never smoker Hx Alcohol Use: Yes Alcohol type: beer and wine Hx Substance Use: Yes substance use type: marijuana Substance Use Type Other:: Medical Marijuana Last Used Substance: Days (ago) Results & Data Vital Signs (Past 12 Hours) Vital Signs Temp Pulse Pulse Pulse Resp BP BP 04/07/19 02:57 36.8 C 72 14 105/64 04/07/19 00:14 36.9 C 93 H 16 116/72 04/06/19 23:14 36.8 C 77 18 141/78 H 04/06/19 22:14 36.6 C 73 17 136/77 04/06/19 21:45 37.0 C 77 18 141/79 H 04/06/19 21:31 37.1 C 71 18 146/78 H 04/06/19 21:05 72 17 154/68 H 04/06/19 20:55 36.8 C 74 17 147/78 H 04/06/19 20:45 72 15 149/64 H 04/06/19 20:35 73 21 150/59 H 04/06/19 20:25 83 20 175/98 H 04/06/19 20:15 90 22 157/71 H 04/06/19 20:08 36.9 C 94 H 24 177/86 H 04/06/19 18:25 37.3 C 89 20 191/90 H 04/06/19 18:00 75 16 136/91 Pulse Ox 04/07/19 02:57 94 04/07/19 00:14 90 04/06/19 23:14 95 04/06/19 22:14 95 04/06/19 21:45 96 04/06/19 21:31 98 04/06/19 21:05 97 04/06/19 20:55 94 04/06/19 20:45 94 04/06/19 20:35 99 04/06/19 20:25 99 04/06/19 20:15 94 04/06/19 20:08 97 04/06/19 18:25 98 04/06/19 18:00 99
--- NOTE | 2019-04-07 03:22 | Communication Note ---
Date of Service: April 07, 2019 Received consult for management of DM postoperatively. BSG's and insulin orders writted. Patient's PCP is Dr. Grover with [facility]. Suggest that consult be referred to [facility] Medicine for optimal continuity of care. Will discuss with surgical team in the a.m. Please call if you have any questions. Gaudencio Naidu
[2019-04-07] MEDS: OXYCODONE/ACETAMINOPHEN 5mg/325mg TAB PO PRN ×4 (05:54→23:41)
[2019-04-07] MEDS: LEVOTHYROXINE SODIUM 112 MCG TABLET PO SCH (05:54)
[2019-04-07 07:39] LABS: Basophils # (auto) 0.02 K/uL (0-0.2); Basophils % (auto) 0.3 %; Eosinophils # (auto) 0.13 K/uL (0-0.5); Eosinophils % (auto) 1.7 %; Hematocrit (blood only) 38.7 % (37-47); Immature Granulocytes # (auto) 0.01 K/uL (0.00-0.02); Immature Granulocytes % (auto) 0.1 %; Lymphocytes # (auto) 2.91 K/uL (1.2-3.4); Mean Corpuscular Hgb Conc 33.6 g/dL (32-36); Mean Corpuscular Volume 89.4 fL (80-100); Mean Platelet Volume 9.7 fL (7.4-10.4); Monocytes # (auto) 0.47 K/uL (0.11-0.59); Neutrophils # (auto) 4.32 K/uL (1.4-6.5); Neutrophils % (auto) 54.9 %; Platelet Count 245 K/uL (130-400); RDW Coefficient of Variation 13.3 % (11.5-14.5); RDW Standard Deviation 43.7 fL (36.4-46.3); Red Blood Count 4.33 M/uL (4.2-5.4); White Blood Count 7.86 K/uL (4.8-10.8)
[2019-04-07] MEDS: INSULIN ASPART 100 UNITS/ML 3 ML PEN SC SCH ×4 (08:56→21:15)
[2019-04-07] MEDS: metroNIDAZOLE 500 MG/100 ML BAG IV SCH (08:57)
[2019-04-07] MEDS: CHOLECALCIFEROL 1,000 UNITS TAB PO SCH (08:58)
[2019-04-07] MEDS: VENLAFAXINE HCL XR 75 MG CAPXR PO SCH (08:58)
[2019-04-07] MEDS: MAGNESIUM OXIDE 400 MG TAB PO SCH ×2 (08:58→21:10)
[2019-04-07] MEDS: LORATADINE 10 MG TAB PO SCH (08:59)
[2019-04-07] MEDS ORDERED: predniSONE 20 MG TAB PO SCH (09:00)
[2019-04-07] MEDS: METOPROLOL TARTRATE 25 MG TAB PO SCH ×2 (10:00→21:08)
[2019-04-07] MEDS: LACTATED RINGER'S 1,000 ML IV SCH ×2 (10:02→22:17)
--- NOTE | 2019-04-07 10:28 | Surgery Progress Note ---
Date of Service F/U S/P laparoscopic appendectomy, POD 1 doing better, some RLQ pain, not pass gas yet, pt has some headache, some nausea, vomiting one time early this morning. no fever, April 07, 2019 Assessment & Plan (1) Acute abdominal pain: pt is a 53 year-old female who presents to ER with 4 days history acute abdominal pain, CT scan Dx possible eraly acute appendicitis IMP: acute abdominal pain, possible acute appendicitis, Plan, I recommend to do diagnostic laparoscopy possible appendectomy, possible open, D/W benefits, risks and alternatives of the surgery, the risks - infection, bleeding, abscess, injury bowel, possible negative for appendicitis, but still need to do appendectomy, bowel obstruction, incisional hernia, , pt and her understood, they agree with the surgery, I answered all question, pt will admit to hospital after surgery, 04/07/2019 10 : 27 AM POD 1 doing better, full liquid diet, will F/U Physical Exam Constitutional: WD/WN, vitals as above well developed and well nourished ENMT: external ear and nose normal, oropharynx normal Neck: trachea midline, no thyromegaly trachea midline Respiratory: normal respiratory effort, lungs clear to auscultation normal respiratory effort Cardiovascular: RRR, no murmur, no edema Rate/Rhythm: regular rate and regular rhythm Heart Sounds: normal S1 and normal S2 Gastrointestinal (Abdomen): Percussion/Palpation: + abdomen tender and abdomen soft no distend, BS +, all incisions intact, no redness, Neurologic: patellar DTR's 2+ bilat, sensation intact Psychiatric: Orientation: alert and oriented x 3 Lymphatic: no cervical or axillary lymphadenopathy Results & Data Vital Signs (Past 12 Hours) Vital Signs Temp Pulse Pulse Resp BP Pulse Ox 04/07/19 08:05 96 04/07/19 07:45 37.0 C 70 17 102/62 87 L 04/07/19 02:57 36.8 C 72 14 105/64 94 04/07/19 00:14 36.9 C 93 H 16 116/72 90 04/06/19 23:14 36.8 C 77 18 141/78 H 95
[2019-04-07] MEDS: CIPROFLOXACIN 400 MG/200 ML BAG IV SCH ×2 (11:02→22:18)
--- NOTE | 2019-04-07 11:36 | Hospitalist Consultation ---
Date of Consultation April 07, 2019 Assessment & Plan (1) S/P appendectomy: Patient s/p laparoscopic appendectomy performed last evening by Dr. Pena. Surgery well tolerated. No complications identified. Pain is fairly well controlled at present. Patient still with nausea and some vomiting. -Post-operative pain management per primary team. Morphine 2mg IV q 4 hours, Percocet PRN -Will initiate colace PRN and Dulcolax OR as needed for bowel regimen. Patient is taking Linzess at home which is not stocked in our Pharmacy. She is to take her home medication after her brings it in -Patient with post-operative nausea as well as diabetic gastroparesis - has history of Prolonged QT interval with medications, specifically Zofran. She has had small doses of Reglan in the past without difficulty and Phenergan as well. Her QT is slightly less than 500, would continue to avoid QT prolonging agents. May consider nausea management with anticholinergic agents such as Scopolamine or Benadryl vs Dexamethasone -Ambulation encouraged Present on Admission?: Yes (2) Dyslipidemia: Chronic -Continue home Crestor 10mg po qHS Present on Admission?: Yes (3) Hypothyroidism: Chronic. TSH=0.721 on 09/25/17 -Continue home Synthroid -TSH with AM labs Present on Admission?: Yes (4) GERD (gastroesophageal reflux disease): Chronic. Well controlled -Continue home Protonix 40mg po q daily Present on Admission?: Yes (5) Hypertension: Blood pressure well controlled presently, 102/62. Patient states that this is slightly low for her -Continue Lisinopril 10mg po daily -Continue Metoprolol 25mg po BID -Hold for SBP <100 -Continue to monitor (6) Gastroparesis: Patient reports she typically manages this with careful diet, occasional use of Reglan -Advance diet as tolerated as above -Anti-emetic suggestions as above -Patient could receive small dose of Reglan if nausea not controlled with above measures Present on Admission?: Yes (7) Diabetes: Patient with DM. Last A1C=9.5 from 09/03/17. She follows with her outpatient physician. Blood sugars have been well controlled here -Continue Lantus 22u qHS -ISS -Continue to monitor Present on Admission?: Yes (8) Panic disorder with agoraphobia: Patient is doing quite well. Denies anxiety at present -Continue Effexor 75mg po qAM -Clonazepam PRN (9) Prolonged QT interval: As above, KBj=862 -Avoid QT prolonging agents (10) Sinus pain: Patient with complaint of sinus congestion and cough. Lungs CTA -Will add nasal saline rinse -Flonase -Tessalon Perles PRN cough -Chloraseptic spray -Will DC Prednisone for now, patient was started on this for throat pain and has not yet taken it. Thank you for this consult. We will continue to follow History of Present Illness Reason for Consultation: post operative medical management Attending Physician: Nikki Pena MD History of Present Illness Ulysses Marcum is a pleasant 53yo C female who presented to [facility] ER on 04/06/19 with complaint of sinus congestion with thick nasal discharge and facial pressure over the last 4 days. Also with complaint of left sided abdominal pain. On physical exam she was nontoxic in appearance, she had mild tenderness in the RLQ with no peritoneal signs. A CT of the abdomen was obtained which showed a dilated 8mm appendix, concern for early developing appendicitis. The patient was evaluated by Dr. Pena and was taken for laparoscopic appendectomy. The surgery was well tolerated, minimal blood loss, no complications identified. She returned to the medical floor in stable condition. Patient has had small amounts of clear liquids. Has had some nausea and vomiting. No flatulence or BM yet. She has ambulated without difficulty. She is complaining of sore throat, sinus congestion and nasal drainage as well as cough. No additional complaints at this time. Allergies Allergy/AdvReac Type Severity Reaction Status Date / Time homatropine Allergy Severe ANNAPHYLACTIC Verified 04/06/19 16:27 SHOCK hydrocodone Allergy Severe ANNAPHYLACTIC Verified 04/06/19 16:27 SHOCK erythromycin base Allergy Intermediate RASH Verified 04/06/19 16:27 Sulfa (Sulfonamide Allergy Intermediate RASH Verified 04/06/19 16:27 Antibiotics) methylprednisolone Allergy Mild RASH Verified 04/06/19 16:27 ondansetron Allergy Mild Cardiac Verified 04/06/19 16:27 symptoms hydromorphone AdvReac Intermediate confusion Verified 04/06/19 16:27 Home Medications Home Medications Medication Instructions Recorded Confirmed Type lisinopril 10 mg PO HS #0 11/12/04/06/19 History metoprolol tartrate [Lopressor] 25 mg PO BID #0 tab 05/23/16 07/16/19 History hydrochlorothiazide 25 mg PO DAILY PRN #0 07/29/16 04/06/19 History loratadine [Claritin] 10 mg PO QAM #0 07/29/16 04/06/19 History omeprazole 40 mg PO HS #0 07/29/16 04/06/19 History ferrous sulfate 325 mg PO HS #0 08/09/16 04/06/19 History cholecalciferol (vitamin D3) 2,000 unit PO QAM #0 09/01/17 04/06/19 History levothyroxine 112 mcg PO QAM #0 09/01/17 04/06/19 History linaclotide [Linzess] 145 mcg PO QAM #0 12/11/17 04/06/19 History insulin glargine [Basaglar KwikPen 22 unit SUBCUT HS #0 03/26/18 04/06/19 History U-100 Insulin] venlafaxine [Effexor XR] 75 mg PO QAM #0 03/26/18 04/06/19 History clonazepam 0.5 mg PO TID PRN 04/06/19 04/06/19 History insulin lispro [Admelog U-100 1 sliding scale dose SUBCUT 04/06/19 04/06/19 History Insulin lispro] DIRECTED magnesium oxide 400 mg PO BID 04/06/19 04/06/19 History prednisone 40 mg PO DAILY 3 Days #6 tab 04/06/19 04/06/19 Rx rosuvastatin 10 mg PO HS 04/06/19 04/06/19 History Patient History Medical History Acute abdominal pain Dyslipidemia (Chronic) Hypothyroidism (Chronic) GERD (gastroesophageal reflux disease) (Chronic) Hypertension (Chronic) Diabetes (Chronic) Lumbar radiculopathy (Chronic) Panic disorder with agoraphobia (Chronic) PTSD (post-traumatic stress disorder) (Chronic) Gastroparesis (Chronic) Prolonged QT interval Surgical History History of delivery S/P appendectomy Family History Other No significant family history Social History Preferred Language: Sinhala Communication Ability: Effective Microbiological Laboratory Technician Required: No Beliefs That Will Affect Care: None Current Living Situation: Spouse and Family Other Information That Helps Us Care for You: No Feels Safe at Home: Yes Safety Concerns: Feels Safe At This Time Smoking Status: Never smoker Hx Alcohol Use: Yes Alcohol type: beer and wine Hx Substance Use: Yes substance use type: marijuana Substance Use Type Other:: Medical Marijuana Last Used Substance: Days (ago) Review of Systems Review of Systems: All systems reviewed & are unremarkable except as noted in HPI & below As above. Patient with nausea, vomiting Sinus congestion, facial pain Cough Physical Exam Physical Exam: General: patient resting comfortably, NAD, non-toxic in appearance, AA&O x 4 Skin: warm, dry, no rashes or lesions, abdominal surgical sites covered, mild bleeding beneath dressing, no drainage/erythema HEENT: NC/AT, PERRL, EOMI, anicteric sclera, conjunctiva without injection, external ear normal to inspection and nontender, nares patent, moist mucus membranes, dentition intact, no oropharyngeal lesions, neck supple, trachea midline, no LAD, no thyromegaly, no JVD Heart: +S1/S2, regular, no m/r/g Lungs: equal air entry bilaterally, no rales/rhonchi/wheezes Abd: +BS, soft, mildly tender, ND, no masses/organomegaly/ascites Ext: warm, 2+ pulses in UE/LE bilaterally, no clubbing/cyanosis or edema Neuro: nonfocal, patient AA&O x 4, speech intact, no facial droop, moving all extremities on command with equal strength 5/5 Results & Data Vital Signs (Past 12 Hours) Vital Signs Temp Pulse Pulse Resp BP Pulse Ox 04/07/19 08:05 96 04/07/19 07:45 37.0 C 70 17 102/62 87 L 04/07/19 02:57 36.8 C 72 14 105/64 94 04/07/19 00:14 36.9 C 93 H 16 116/72 90 Laboratory Results Lab Results 04/06/19 04/06/19 04/06/19 Range/Units 15:56 15:56 18:29 WBC 7.17 (4.8-10.8) K/uL RBC 4.65 (4.2-5.4) M/uL Hgb 14.6 (12.0-16.0) g/dL Hct 41.3 (37-47) % MCV 88.8 (80-100) fL MCH 31.4 (25-34) pg MCHC 35.4 (32-36) g/dL RDW Std Deviation 43.3 (36.4-46.3) fL RDW Coeff of [place] 13.3 (11.5-14.5) % Plt Count 228 (130-400) K/uL MPV 9.3 (7.4-10.4) fL Immature Gran % (Auto) 0.1 % Neut % (Auto) 57.7 % Lymph % (Auto) 33.1 % [place] % (Auto) 7.3 % Eos % (Auto) 1.5 % Baso % (Auto) 0.3 % Immature Gran # (Auto) 0.01 (0.00-0.02) K/uL Neut # (Auto) 4.14 (1.4-6.5) K/uL Lymph # (Auto) 2.37 (1.2-3.4) K/uL [place] # (Auto) 0.52 (0.11-0.59) K/uL Eos # (Auto) 0.11 (0-0.5) K/uL Baso # (Auto) 0.02 (0-0.2) K/uL Sodium 139 (136-145) mmol/L Potassium 4.4 (3.5-5.1) mmol/L Chloride 106 (98-107) mmol/L Carbon Dioxide 25 (21-32) mmol/L Anion Gap 8.0 (3-11) BUN 12 (7-18) mg/dl Creatinine 1.01 (0.6-1.2) mg/dl Est Cr Clr Drug Dosing 71.8 ml/min Est GFR ( Amer) 74.1 Est GFR (Non-Af Amer) 64.0 BUN/Creatinine Ratio 12.1 (10-20) Glucose 141 H (70-99) mg/dl POC Glucose 116 H (70-99) Calcium 10.0 (8.5-10.1) mg/dl Total Bilirubin 0.6 (0.2-1) mg/dl AST 24 (15-37) U/L ALT 32 (12-78) U/L Alkaline Phosphatase 84 (45-117) U/L Troponin I < 0.015 (0-0.045) ng/ml Total Protein 8.4 H (6.4-8.2) gm/dl Albumin 4.2 (3.4-5.0) gm/dl Globulin 4.2 H (2.5-4.0) gm/dl Albumin/Globulin Ratio 1.0 (0.9-2) Lipase 116 (73-393) U/L 04/06/19 04/06/19 04/07/19 Range/Units 20:10 21:21 00:03 WBC (4.8-10.8) K/uL RBC (4.2-5.4) M/uL Hgb (12.0-16.0) g/dL Hct (37-47) % MCV (80-100) fL MCH (25-34) pg MCHC (32-36) g/dL RDW Std Deviation (36.4-46.3) fL RDW Coeff of [place] (11.5-14.5) % Plt Count (130-400) K/uL MPV (7.4-10.4) fL Immature Gran % (Auto) % Neut % (Auto) % Lymph % (Auto) % [place] % (Auto) % Eos % (Auto) % Baso % (Auto) % Immature Gran # (Auto) (0.00-0.02) K/uL Neut # (Auto) (1.4-6.5) K/uL Lymph # (Auto) (1.2-3.4) K/uL [place] # (Auto) (0.11-0.59) K/uL Eos # (Auto) (0-0.5) K/uL Baso # (Auto) (0-0.2) K/uL Sodium (136-145) mmol/L Potassium (3.5-5.1) mmol/L Chloride (98-107) mmol/L Carbon Dioxide (21-32) mmol/L Anion Gap (3-11) BUN (7-18) mg/dl Creatinine (0.6-1.2) mg/dl Est Cr Clr Drug Dosing ml/min Est GFR ( Amer) Est GFR (Non-Af Amer) BUN/Creatinine Ratio (10-20) Glucose (70-99) mg/dl POC Glucose 105 H 130 H 126 H (70-99) Calcium (8.5-10.1) mg/dl Total Bilirubin (0.2-1) mg/dl AST (15-37) U/L ALT (12-78) U/L Alkaline Phosphatase (45-117) U/L Troponin I (0-0.045) ng/ml Total Protein (6.4-8.2) gm/dl Albumin (3.4-5.0) gm/dl Globulin (2.5-4.0) gm/dl Albumin/Globulin Ratio (0.9-2) Lipase (73-393) U/L 04/07/19 04/07/19 Range/Units 07:09 08:00 WBC 7.86 (4.8-10.8) K/uL RBC 4.33 (4.2-5.4) M/uL Hgb 13.0 (12.0-16.0) g/dL Hct 38.7 (37-47) % MCV 89.4 (80-100) fL MCH 30.0 (25-34) pg MCHC 33.6 (32-36) g/dL RDW Std Deviation 43.7 (36.4-46.3) fL RDW Coeff of [place] 13.3 (11.5-14.5) % Plt Count 245 (130-400) K/uL MPV 9.7 (7.4-10.4) fL Immature Gran % (Auto) 0.1 % Neut % (Auto) 54.9 % Lymph % (Auto) 37.0 % [place] % (Auto) 6.0 % Eos % (Auto) 1.7 % Baso % (Auto) 0.3 % Immature Gran # (Auto) 0.01 (0.00-0.02) K/uL Neut # (Auto) 4.32 (1.4-6.5) K/uL Lymph # (Auto) 2.91 (1.2-3.4) K/uL [place] # (Auto) 0.47 (0.11-0.59) K/uL Eos # (Auto) 0.13 (0-0.5) K/uL Baso # (Auto) 0.02 (0-0.2) K/uL Sodium (136-145) mmol/L Potassium (3.5-5.1) mmol/L Chloride (98-107) mmol/L Carbon Dioxide (21-32) mmol/L Anion Gap (3-11) BUN (7-18) mg/dl Creatinine (0.6-1.2) mg/dl Est Cr Clr Drug Dosing ml/min Est GFR ( Amer) Est GFR (Non-Af Amer) BUN/Creatinine Ratio (10-20) Glucose (70-99) mg/dl POC Glucose 109 H (70-99) Calcium (8.5-10.1) mg/dl Total Bilirubin (0.2-1) mg/dl AST (15-37) U/L ALT (12-78) U/L Alkaline Phosphatase (45-117) U/L Troponin I (0-0.045) ng/ml Total Protein (6.4-8.2) gm/dl Albumin (3.4-5.0) gm/dl Globulin (2.5-4.0) gm/dl Albumin/Globulin Ratio (0.9-2) Lipase (73-393) U/L Diagnostic Findings CT head/brain wo con CLINICAL HISTORY: 53 years-old Female presenting with Pt c/o sinus pressure. TECHNIQUE: Multidetector CT imaging of the head was performed without the use of intravenous contrast. IV contrast: None. One or more dose lowering techniques were used consistent with the principles of ALARA (as low as reasonably achievable), including automatic exposure control, mA or kV adjustment to individual patient size, and/or use of iterative reconstruction. COMPARISON: 02/05/2016. CT DOSE (mGy.cm): The estimated cumulative dose is 537.48 mGy.cm. FINDINGS: [place] [place] topogram: Unremarkable. Ventricles and sulci normal in size. No hemorrhage. Brain parenchyma normal in appearance with preserved bonilla-white differentiation. No acute territorial infarct. No mass effect or midline shift. No extra-axial fluid collection. Paranasal sinuses and mastoid air cells clear. Calvarium intact. IMPRESSION: 1. No acute intracranial abnormality. Electronically signed by: Gume Baird M.D. 04/06/2019 5:[address] abd pelvis IV con only CLINICAL HISTORY: 53 years-old Female presenting with upper abdominal pain, nausea and vomiting, c/o LUQ abd pain. TECHNIQUE: Multidetector CT of the abdomen and pelvis was performed after the administration of intravenous contrast. IV contrast: 94 mL of Optiray 320. One or more dose lowering techniques were used consistent with the principles of ALARA (as low as reasonably achievable), including automatic exposure control, mA or kV adjustment to individual patient size, and/or use of iterative re construction. COMPARISON: 06/15/2017. CT DOSE (mGy.cm): The estimated cumulative dose is 1449.15 mGy.cm. FINDINGS: [place] topogram: Unremarkable. Lung bases: Normal heart size. No pericardial or pleural effusion. No focal infiltrate or nodule at the lung bases. Liver: Normal morphology. Density suggestive of hepatic steatosis. No focal lesion. Patent hepatic vasculature. Biliary: No intrahepatic or extrahepatic biliary ductal dilatation. Normal gallbladder. Pancreas: Normal. Spleen: Normal. Adrenal glands: Normal. Kidneys and ureters: Normal. No hydronephrosis. Bladder: Normal. Pelvic organs: Uterus and ovaries normal. Bowel: The appendix is dilated up to 8 mm, which represents a notable change from the prior exam when the appendix was normal in size. There is trace if any periappendiceal fat infiltration. No significant wall thickening of the appendix. There is fluid density within the appendiceal lumen. No bowel obstruction. Peritoneal cavity: No free fluid or intraperitoneal gas. Lymph nodes: No enlarged lymph nodes in the abdomen or pelvis. Vasculature: Atherosclerosis of the normal caliber abdominal aorta. IVC patent. Abdominal wall: Diastasis of the rectus abdominis. Musculoskeletal: Normal. IMPRESSION: 1. Findings raise concern for subtle early acute appendicitis. Alternatively, the appearance could represent a developing mucocele and/or chronic change. Surgical consultation advised. 2. Hepatic steatosis. Correlate with liver function tests to exclude steatohepatitis as a cause for abdominal pain. Electronically signed by: Gume Baird M.D. 04/06/2019 5:10 PM Dictated: 04/06/191701 Transcribed: 04/06/191701 ECG Additional Comments: NSR at 70bpm, normal axis, IL=813, QRS=96, OWm=789, poor R wave progression, no acute ischemic changes. Unchanged from prior study 09 December 2018 PG Care Time/CCT Total # of Minutes Spent Total Time Spent with Patient: Total time spent is greater than 50% in coordination of care (as documented) at patient's floor/unit and/or counseling patient: (1) Hypothyroidism Hypothyroidism type: unspecified Qualified Code(s): E03.9 - Hypothyroidism, unspecified (2) GERD (gastroesophageal reflux disease) Esophagitis presence: esophagitis presence not specified Qualified Code(s): K21.9 - Gastro-esophageal reflux disease without esophagitis (3) Hypertension Hypertension type: essential hypertension Qualified Code(s): I10 - Essential (primary) hypertension (4) Diabetes Diabetes mellitus type: type 2 Diabetes mellitus intermediate insulin use: with intermediate use Diabetes mellitus complication status: without complication Qualified Code(s): E11.9 - Type 2 diabetes mellitus without complications; Z79.4 - care home (current) use of insulin
[2019-04-07] MEDS ORDERED: BENZOCAINE/MENTHOL 18 LOZ/1 BOX MT PRN (12:13)
[2019-04-07] MEDS ORDERED: DOCUSATE SODIUM 100 MG CAP PO PRN (12:13)
[2019-04-07] MEDS ORDERED: SODIUM CHLORIDE 0.65% NA SOLN 45 ML (OCEAN) PRN (12:13)
[2019-04-07] MEDS ORDERED: guaiFENesin SUGAR FREE 100 MG/5 ML UDC PO PRN (12:13)
[2019-04-07] MEDS ORDERED: BISACODYL 10 MG SUPP PR PRN (12:13)
[2019-04-07] MEDS: FLUTICASONE PROPIONATE NA SPR 16 GM BTL SCH (13:59)
[2019-04-07] MEDS ORDERED: DiphenhydrAMINE HCL 50 MG/ML VIAL IV STA (16:09)
[2019-04-07] MEDS: FERROUS SULFATE 325 MG TAB PO SCH (21:09)
[2019-04-07] MEDS: ROSUVASTATIN CALCIUM 10 MG TAB PO SCH (21:09)
[2019-04-07] MEDS: LISINOPRIL 10 MG TAB PO SCH (21:10)
[2019-04-07] MEDS: PANTOprazole 40 MG TAB PO SCH (21:10)
[2019-04-07] MEDS: INSULIN GLARGINE SOLOSTAR 100 UNITS/ML 3 ML PEN SQ SCH (21:14)
[2019-04-08] MEDS: DiphenhydrAMINE HCL 50 MG/ML VIAL IV PRN ×2 (01:49→20:44)
[2019-04-08] MEDS: MoRPHine SULFATE 2 MG/ML CARP IV PRN ×3 (01:49→10:50)
[2019-04-08] MEDS: OXYCODONE/ACETAMINOPHEN 5mg/325mg TAB PO PRN ×3 (03:32→23:32)
[2019-04-08] MEDS: LEVOTHYROXINE SODIUM 112 MCG TABLET PO SCH (05:33)
[2019-04-08 07:11] LABS: Basophils # (auto) 0.01 K/uL (0-0.2); Basophils % (auto) 0.1 %; Eosinophils # (auto) 0.05 K/uL (0-0.5); Eosinophils % (auto) 0.6 %; Hematocrit (blood only) 37.1 % (37-47); Hemoglobin 12.6 g/dL (12.0-16.0); Immature Granulocytes # (auto) 0.02 K/uL (0.00-0.02); Immature Granulocytes % (auto) 0.2 %; Lymphocytes # (auto) 3.02 K/uL (1.2-3.4); Lymphocytes % (auto) 36.8 %; Mean Corpuscular Volume 91.4 fL (80-100); Mean Platelet Volume 9.4 fL (7.4-10.4); Monocytes # (auto) 0.67 K/uL (0.11-0.59); Monocytes % (auto) 8.2 %; Neutrophils # (auto) 4.43 K/uL (1.4-6.5); Neutrophils % (auto) 54.1 %; Platelet Count 237 K/uL (130-400); RDW Standard Deviation 43.8 fL (36.4-46.3); Red Blood Count 4.06 M/uL (4.2-5.4)
[2019-04-08 07:50] LABS: BUN Creatinine Ratio 10.3 (10-20); Calcium 9.3 mg/dl (8.5-10.1); Creatinine Clr Calc Pharmacy 67.6 ml/min; Est GFR (African American) 66.1; Est GFR (Non-African American) 57.1; Potassium 3.9 mmol/L (3.5-5.1)
[2019-04-08] MEDS: MAGNESIUM OXIDE 400 MG TAB PO SCH ×2 (09:17→20:34)
[2019-04-08] MEDS: CHOLECALCIFEROL 1,000 UNITS TAB PO SCH (09:17)
[2019-04-08] MEDS: METOPROLOL TARTRATE 25 MG TAB PO SCH ×2 (09:17→21:03)
[2019-04-08] MEDS: LORATADINE 10 MG TAB PO SCH (09:17)
[2019-04-08] MEDS: LINACLOTIDE 145 MCG PO SCH (09:18)
[2019-04-08] MEDS: VENLAFAXINE HCL XR 75 MG CAPXR PO SCH (09:18)
[2019-04-08] MEDS: FLUTICASONE PROPIONATE NA SPR 16 GM BTL SCH (09:18)
[2019-04-08] MEDS: INSULIN ASPART 100 UNITS/ML 3 ML PEN SC SCH ×4 (09:21→21:04)
[2019-04-08] MEDS: LACTATED RINGER'S 1,000 ML IV SCH ×2 (10:53→23:34)
[2019-04-08] MEDS: CIPROFLOXACIN 400 MG/200 ML BAG IV SCH (10:58)
--- NOTE | 2019-04-08 11:54 | Surgery Progress Note ---
Date of Service April 08, 2019 Assessment & Plan (1) Acute appendicitis: POD # 2 s/p laparoscopic appendectomy -vitals stable, afebrile - + nausea (history of hiatal hernia and gastroparesis) - no vomiting - moderate post op pain, better controlled - Urinating without difficulty Plan: advance diet to full liquids today Continue PO Percocet and IV Morphine as needed for pain encouraged ambulation Continue home meds May need to consider Reglan if nausea not improved Continue current medical management, appreciate recs Continue IV Abx for post op dose, ordered to stop today SCDS for dvt prohylaxis Incentive spirometry Hopefully home tomorrow (2) Sinus pain: Continue hospitalist recs -Will add nasal saline rinse -Flonase -Tessalon Perles PRN cough -Chloraseptic spray Dr. Pena has seen and examined pt, agrees with above Subjective +nausea again this morning, did not eat much of breakfast bilateral eye discharge and coughing abdominal pain moderate but controlled urinating without difficulty no vomiting Physical Exam Constitutional: WD/WN, vitals as above + obese; no acute distress and not i ll appearing Respiratory: normal respiratory effort and + cough; no respiratory distress Gastrointestinal (Abdomen): Inspection/Auscultation: abdomen not distended Percussion/Palpation: + abdomen tender (at incision sites and RUQ and LUQ) and abdomen soft; no guarding and abdomen not rigid Skin: no rashes, warm and dry + incision (Covered with dressings, intact, mild spotting) Psychiatric: A+Ox3, euthymic affect Results & Data Vital Signs (Past 12 Hours) Vital Signs Temp Pulse Resp BP Pulse Ox 04/08/19 07:24 36.6 C 69 16 139/70 95 Laboratory Results 04/08/19 04/08/19 04/08/19 Range/Units 07:59 06:56 06:56 WBC 8.20 (4.8-10.8) K/uL RBC 4.06 L (4.2-5.4) M/uL Hgb 12.6 (12.0-16.0) g/dL Hct 37.1 (37-47) % MCV 91.4 (80-100) fL MCH 31.0 (25-34) pg MCHC 34.0 (32-36) g/dL RDW Std Deviation 43.8 (36.4-46.3) fL RDW Coeff of [place] 13.0 (11.5-14.5) % Plt Count 237 (130-400) K/uL MPV 9.4 (7.4-10.4) fL Immature Gran % (Auto) 0.2 % Neut % (Auto) 54.1 % Lymph % (Auto) 36.8 % [place] % (Auto) 8.2 % Eos % (Auto) 0.6 % Baso % (Auto) 0.1 % Immature Gran # (Auto) 0.02 (0.00-0.02) K/uL Neut # (Auto) 4.43 (1.4-6.5) K/uL Lymph # (Auto) 3.02 (1.2-3.4) K/uL [place] # (Auto) 0.67 H (0.11-0.59) K/uL Eos # (Auto) 0.05 (0-0.5) K/uL Baso # (Auto) 0.01 (0-0.2) K/uL Sodium 140 (136-145) mmol/L Potassium 3.9 (3.5-5.1) mmol/L Chloride 105 (98-107) mmol/L Carbon Dioxide 30 (21-32) mmol/L Anion Gap 5.0 (3-11) BUN 11 (7-18) mg/dl Creatinine 1.11 (0.6-1.2) mg/dl Est Cr Clr Drug Dosing 67.6 ml/min Est GFR ( Amer) 66.1 Est GFR (Non-Af Amer) 57.1 BUN/Creatinine Ratio 10.3 (10-20) Glucose 107 H (70-99) mg/dl POC Glucose 109 H (70-99) Calcium 9.3 (8.5-10.1) mg/dl TSH 2.540 (0.300-4.500) uIu/ml 04/07/19 04/07/19 04/07/19 Range/Units 20:35 17:15 12:04 WBC (4.8-10.8) K/uL RBC (4.2-5.4) M/uL Hgb (12.0-16.0) g/dL Hct (37-47) % MCV (80-100) fL MCH (25-34) pg MCHC (32-36) g/dL RDW Std Deviation (36.4-46.3) fL RDW Coeff of [place] (11.5-14.5) % Plt Count (130-400) K/uL MPV (7.4-10.4) fL Immature Gran % (Auto) % Neut % (Auto) % Lymph % (Auto) % [place] % (Auto) % Eos % (Auto) % Baso % (Auto) % Immature Gran # (Auto) (0.00-0.02) K/uL Neut # (Auto) (1.4-6.5) K/uL Lymph # (Auto) (1.2-3.4) K/uL [place] # (Auto) (0.11-0.59) K/uL Eos # (Auto) (0-0.5) K/uL Baso # (Auto) (0-0.2) K/uL Sodium (136-145) mmol/L Potassium (3.5-5.1) mmol/L Chloride (98-107) mmol/L Carbon Dioxide (21-32) mmol/L Anion Gap (3-11) BUN (7-18) mg/dl Creatinine (0.6-1.2) mg/dl Est Cr Clr Drug Dosing ml/min Est GFR ( Amer) Est GFR (Non-Af Amer) BUN/Creatinine Ratio (10-20) Glucose (70-99) mg/dl POC Glucose 180 H 185 H 175 H (70-99) Calcium (8.5-10.1) mg/dl TSH (0.300-4.500) uIu/ml (1) Acute appendicitis Acute appendicitis type: with localized peritonitis Appendicitis abscess presence: without abscess Appendicitis gangrene presence: unspecified whether gangrene present Appendicitis perforation presence: without perforation Qualified Code(s): K35.30 - Acute appendicitis with localized peritonitis, without perforation or gangrene
[2019-04-08] MEDS: SUCRALFATE 1 GM TAB PO SCH ×2 (18:56→20:32)
[2019-04-08] MEDS: DEXAMETHASONE CONC 3.75 MG, NYSTATIN 30 ML, DiphenhydrAMINE Syrup 300 MG, ORA-SWEET SYR... PO SCH ×2 (19:19→20:46)
--- NOTE | 2019-04-08 20:01 | Hospitalist Progress Note ---
Date of Service April 08, 2019 Assessment & Plan (1) S/P appendectomy: POD #2 - s/p lap appy. Management per surgery. Remains on IV cipro. Present on Admission?: Yes (2) Acute pharyngitis: Magic mouthwash qid. Likely viral given her ocular complaints on right, cough, etc. Consider throat culture. Consider monospot. Present on Admission?: Yes (3) Dyslipidemia: Continue crestor. (4) Hypothyroidism: TSH this admission wnl. Cont synthroid. (5) GERD (gastroesophageal reflux disease): Remains on protonix but having refractory symptoms. Add carafate 1gm QID. (6) Hypertension: Cont Lisinopril and Metoprolol. Controlled. (7) Gastroparesis: Stable. (8) Diabetes: lantus 22u HS Novolog SSI with meals acceptable control (9) Panic disorder with agoraphobia: cont effexor (10) Prolonged QT interval: Repeat EKG in am Subjective pt's main complaints are that of right eye drainage and sore throat. has had sore throat for 1 week. she also c/o epigastric discomfort. she has h/o GERD. tolerating liquids. +flatus. Review of Systems Constitutional: no fever Respiratory: no cough and no dyspnea Cardiovascular: no chest pain Gastrointestinal: + abdominal pain; no nausea and no vomiting Physical Exam Constitutional: well developed, well nourished and + morbidly obese; no acute distress Eyes: + conjunctival abnormality (injected - right; scant drainage) ENMT: Mouth: + oropharynx abnormality (erythematous ) Respiratory: normal respiratory effort, lungs clear to auscultation Cardiovascular: Rate/Rhythm: regular rate and regular rhythm Heart Sounds: normal S1 and normal S2; no murmur Vessels: posterior tibial pulses present and dorsalis pedis pulses present; no JVD Gastrointestinal (Abdomen): Inspection/Auscultation: + abdomen distended (minimal) Percussion/Palpation: + abdomen tender (epigastric) and abdomen soft; no guarding and no hepatosplenomegaly Skin: dressings intact abdominal wall Psychiatric: A+Ox3, euthymic affect Lymphatic: + cervical lymphadenopathy (multiple nodes, >1cm) Results & Data Vital Signs (Past 12 Hours) Vital Signs Temp Pulse Resp BP Pulse Ox 04/08/19 15:14 36.9 C 63 18 102/58 L 94 Laboratory Results Laboratory Results - last 24 hr 04/07/19 04/08/19 04/08/19 20:35 06:56 06:56 WBC 8.20 RBC 4.06 L Hgb 12.6 Hct 37.1 MCV 91.4 MCH 31.0 MCHC 34.0 RDW Std Deviation 43.8 RDW Coeff of [place] 13.0 Plt Count 237 MPV 9.4 Immature Gran % (Auto) 0.2 Neut % (Auto) 54.1 Lymph % (Auto) 36.8 [place] % (Auto) 8.2 Eos % (Auto) 0.6 Baso % (Auto) 0.1 Immature Gran # (Auto) 0.02 Neut # (Auto) 4.43 Lymph # (Auto) 3.02 [place] # (Auto) 0.67 H Eos # (Auto) 0.05 Baso # (Auto) 0.01 Sodium 140 Potassium 3.9 Chloride 105 Carbon Dioxide 30 Anion Gap 5.0 BUN 11 Creatinine 1.11 Est Cr Clr Drug Dosing 67.6 Est GFR ( Amer) 66.1 Est GFR (Non-Af Amer) 57.1 BUN/Creatinine Ratio 10.3 Glucose 107 H POC Glucose 180 H Calcium 9.3 TSH 2.540 04/08/19 04/08/19 04/08/19 07:59 12:00 17:28 WBC RBC Hgb Hct MCV MCH MCHC RDW Std Deviation RDW Coeff of [place] Plt Count MPV Immature Gran % (Auto) Neut % (Auto) Lymph % (Auto) [place] % (Auto) Eos % (Auto) Baso % (Auto) Immature Gran # (Auto) Neut # (Auto) Lymph # (Auto) [place] # (Auto) Eos # (Auto) Baso # (Auto) Sodium Potassium Chloride Carbon Dioxide Anion Gap BUN Creatinine Est Cr Clr Drug Dosing Est GFR ( Amer) Est GFR (Non-Af Amer) BUN/Creatinine Ratio Glucose POC Glucose 109 H 150 H 98 Calcium TSH PG Care Time/CCT Total # of Minutes Spent Total Time Spent with Patient: Total time spent is greater than 50% in coordination of care (as documented) at patient's floor/unit and/or counseling patient: (1) Diabetes Diabetes mellitus complication status: without complication Diabetes mellitus 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 insulin use: with usp use Diabetes mellitus type: type 2 Qualified Code(s): E11.9 - Type 2 diabetes mellitus without complications; Z79.4 - group home (current) use of insulin (2) Hypothyroidism Hypothyroidism type: unspecified Qualified Code(s): E03.9 - Hypothyroidism, unspecified (3) GERD (gastroesophageal reflux disease) Esophagitis presence: esophagitis presence not specified Qualified Code(s): K21.9 - Gastro-esophageal reflux disease without esophagitis (4) Hypertension Hypertension type: essential hypertension Qualified Code(s): I10 - Essential (primary) hypertension (5) Acute pharyngitis Pharyngitis/tonsillitis etiology: unspecified etiology Qualified Code(s): J02.9 - Acute pharyngitis, unspecified
[2019-04-08] MEDS: ROSUVASTATIN CALCIUM 10 MG TAB PO SCH (20:33)
[2019-04-08] MEDS: FERROUS SULFATE 325 MG TAB PO SCH (20:33)
[2019-04-08] MEDS: PANTOprazole 40 MG TAB PO SCH (20:35)
[2019-04-08] MEDS: LISINOPRIL 10 MG TAB PO SCH (21:03)
[2019-04-08] MEDS: INSULIN GLARGINE SOLOSTAR 100 UNITS/ML 3 ML PEN SQ SCH (21:07)
[2019-04-09] MEDS: LEVOTHYROXINE SODIUM 112 MCG TABLET PO SCH (05:48)
[2019-04-09] MEDS: OXYCODONE/ACETAMINOPHEN 5mg/325mg TAB PO PRN ×2 (08:40→16:42)
[2019-04-09] MEDS: DEXAMETHASONE CONC 3.75 MG, NYSTATIN 30 ML, DiphenhydrAMINE Syrup 300 MG, ORA-SWEET SYR... PO SCH ×4 (08:41→21:36)
[2019-04-09] MEDS: FLUTICASONE PROPIONATE NA SPR 16 GM BTL SCH (08:46)
[2019-04-09] MEDS: LORATADINE 10 MG TAB PO SCH (08:46)
[2019-04-09] MEDS: SUCRALFATE 1 GM TAB PO SCH ×4 (08:46→21:33)
[2019-04-09] MEDS: VENLAFAXINE HCL XR 75 MG CAPXR PO SCH (08:46)
[2019-04-09] MEDS: MAGNESIUM OXIDE 400 MG TAB PO SCH ×2 (08:46→22:14)
[2019-04-09] MEDS: LINACLOTIDE 145 MCG PO SCH (08:46)
[2019-04-09] MEDS: CHOLECALCIFEROL 1,000 UNITS TAB PO SCH (08:46)
[2019-04-09] MEDS: METOPROLOL TARTRATE 25 MG TAB PO SCH ×2 (08:46→21:33)
[2019-04-09] MEDS: INSULIN ASPART 100 UNITS/ML 3 ML PEN SC SCH ×4 (09:28→22:13)
[2019-04-09 11:16] LABS: BUN Creatinine Ratio 13.7 (10-20); Calcium 8.9 mg/dl (8.5-10.1); Creatinine Clr Calc Pharmacy 72.9 ml/min; Est GFR (African American) 72.4; Est GFR (Non-African American) 62.5; Potassium 3.6 mmol/L (3.5-5.1)
[2019-04-09] MEDS ORDERED: METOCLOPRAMIDE HCL 5 MG TABLET PO STA (11:33)
[2019-04-09] MEDS ORDERED: BISACODYL 10 MG SUPP PR STA (11:33)
[2019-04-09] MEDS: LACTATED RINGER'S 1,000 ML IV SCH (11:50)
--- NOTE | 2019-04-09 12:49 | Surgery Progress Note ---
Date of Service April 09, 2019 Assessment & Plan (1) Acute appendicitis: POD # 3 s/p laparoscopic appendectomy - vitals stable, afebrile - + nausea (history of hiatal hernia and gastroparesis) - no vomiting - mild post op pain, better controlled today - Urinating without difficulty Plan: advance diet to low fiber Continue PO Percocet and IV Morphine as needed for pain encouraged ambulation Continue home meds Po low dose Reglan for continued nausea one time dulcolax suppository Continue current medical management, appreciate recs SCDS for dvt prohylaxis Incentive spirometry Hopefully home this afternoon Dr. Pena has seen and examined pt, agrees with above Subjective still nauseated, tolerating full liquids no vomiting abdominal pain improving coughing improving, more productive today eye discharge improving but still present passing gas, no bowel movement Physical Exam Constitutional: WD/WN, vitals as above + obese; no acute distress and not ill appearing Respiratory: normal respiratory effort; no respiratory distress Gastrointestinal (Abdomen): Inspection/Auscultation: abdomen normal to inspection; abdomen not distended Percussion/Palpation: + abdomen tender (at incision sites) and abdomen soft; no guarding and abdomen not rigid Skin: no rashes, warm and dry + incision (covered with dry dressings, mild spotting present) Psychiatric: A+Ox3, euthymic affect Results & Data Vital Signs (Past 12 Hours) Vital Signs Temp Pulse Resp BP Pulse Ox 04/09/ 08:01 36.7 C 57 L 17 128/72 94 (1) Acute appendicitis Acute appendicitis type: with localized peritonitis Appendicitis abscess presence: without abscess Appendicitis gangrene presence: unspecified whether gangrene present Appendicitis perforation presence: without perforation Qualified Code(s): K35.30 - Acute appendicitis with localized peritonitis, without perforation or gangrene
[2019-04-09] MEDS ORDERED: SODIUM CHLORIDE 0.9% 1000ML 1,000 ML IV ONE (15:25)
--- NOTE | 2019-04-09 20:47 | Hospitalist Progress Note ---
Date of Service April 09, 2019 Assessment & Plan (1) Orthostasis: give bolus of fluids now then recheck BPs. would continue basal/maintenance fluids overnight. If BPs remain low then simply hold BB and/or APURVA. Avoid diuretics. (2) S/P appendectomy: POD #3 - s/p lap appy. Management per surgery. Abx have been d/c. Tolerating diet. await bowel movement. Present on Admission?: Yes (3) Acute pharyngitis: Magic mouthwash qid. Likely viral given her ocular complaints on right, cough, etc. Throat cx neg for strep. Improving overall. (4) Dyslipidemia: Continue crestor. (5) Hypothyroidism: TSH this admission wnl. Cont synthroid. (6) GERD (gastroesophageal reflux disease): Cont PPI; cont carafate 1gm QID. Improved. (7) Hypertension: Cont Lisinopril and Metoprolol. see above in "orthostasis". (8) Gastroparesis: ongoing nausea issues. QTc is minimally prolonged. However, since nausea is prominent, will allow use of reglan sparingly for refr actory symptoms. (9) Diabetes: lantus 22u HS Novolog SSI with meals excellent control (10) Panic disorder with agoraphobia: cont effexor (11) Prolonged QT interval: Repeat EKG unchanged. QTc about 500msec. K and Mag are normal today. 2nd to effexor?? linzess? will check w/ pharmacy. care today d/w surgical team. Subjective pt w/ nausea throughout the day. then, after spending 10-15 minutes on the toilet trying to have a BM (never had one unfortunately but IS passing flatus), she got up and was very dizzy/lightheaded. staff checked BP and systolic BP was in the 90s. she continues to not feel well in general. mild abdominal pain only. Review of Systems Constitutional: no fever Eyes: discharge right eye improving Ear, Nose, Mouth, Throat: + sore throat (but improving) Respiratory: + cough; no dyspnea and no sputum production Cardiovascular: no chest pain Gastrointestinal: no vomiting Physical Exam Constitutional: well developed, well nourished and + morbidly obese; no acute distress Eyes: + conjunctival abnormality (injected - right; scant drainage) ENMT: Mouth: + oropharynx abnormality (erythematous but improved from yesterday's exam) Respiratory: normal respiratory effort, lungs clear to auscultation Cardiovascular: Rate/Rhythm: regular rate and regular rhythm Heart Sounds: normal S1 and normal S2; no murmur Vessels: posterior tibial pulses present and dorsalis pedis pulses present; no JVD Gastrointestinal (Abdomen): Inspection/Auscultation: normal bowel sounds Percussion/Palpation: abdomen soft; abdomen nontender, no guarding and no hepatosplenomegaly Psychiatric: A+Ox3, euthymic affect Results & Data Vital Signs (Past 12 Hours) Vital Signs Temp Pulse Resp BP Pulse Ox 04/09/19 16:52 71 18 122/71 94 04/09/19 14:58 37.2 C 68 17 98/59 L 92 Laboratory Results Laboratory Results - last 24 hr 04/08/19 04/09/19 04/09/19 20:57 08:06 10:14 Sodium 140 Potassium 3.6 Chloride 106 Carbon Dioxide 29 Anion Gap 5.0 BUN 14 Creatinine 1.03 Est Cr Clr Drug Dosing 72.9 Est GFR ( Amer) 72.4 Est GFR (Non-Af Amer) 62.5 BUN/Creatinine Ratio 13.7 Glucose 87 POC Glucose 129 H 84 Calcium 8.9 Magnesium 2.0 04/09/19 04/09/19 11:58 17:05 Sodium Potassium Chloride Carbon Dioxide Anion Gap BUN Creatinine Est Cr Clr Drug Dosing Est GFR ( Amer) Est GFR (Non-Af Amer) BUN/Creatinine Ratio Glucose POC Glucose 106 H 100 H Calcium Magnesium Diagnostic Findings EKG - mildly prolonged QTc (about 500msec) PG Care Time/CCT Total # of Minutes Spent Total Time Spent with Patient: Total time spent is greater than 50% in coordination of care (as documented) at patient's floor/unit and/or counseling patient: (1) Diabetes Diabetes mellitus complication status: without complication 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 Diabetes mellitus type: type 2 Qualified Code(s): E11.9 - Type 2 diabetes mellitus without complications; Z79.4 - longterm (current) use of insulin (2) Hypothyroidism Hypothyroidism type: unspecified Qualified Code(s): E03.9 - Hypothyroidism, unspecified (3) Acute pharyngitis Pharyngitis/tonsillitis etiology: unspecified etiology Qualified Code(s): J02.9 - Acute pharyngitis, unspecified (4) GERD (gastroesophageal reflux disease) Esophagitis presence: esophagitis presence not specified Qualified Code(s): K21.9 - Gastro-esophageal reflux disease without esophagitis (5) Hypertension Hypertension type: essential hypertension Qualified Code(s): I10 - Essential (primary) hypertension
[2019-04-09] MEDS: PANTOprazole 40 MG TAB PO SCH (21:33)
[2019-04-09] MEDS: LISINOPRIL 10 MG TAB PO SCH (21:33)
[2019-04-09] MEDS: ROSUVASTATIN CALCIUM 10 MG TAB PO SCH (21:33)
[2019-04-09] MEDS: FERROUS SULFATE 325 MG TAB PO SCH (21:34)
[2019-04-09] MEDS: INSULIN GLARGINE SOLOSTAR 100 UNITS/ML 3 ML PEN SQ SCH (22:13)
[2019-04-10] MEDS: OXYCODONE/ACETAMINOPHEN 5mg/325mg TAB PO PRN ×4 (00:27→13:55)
[2019-04-10] MEDS: LEVOTHYROXINE SODIUM 112 MCG TABLET PO SCH (06:09)
[2019-04-10 06:59] LABS: Hematocrit (blood only) 35.6 % (37-47); Hemoglobin 12.1 g/dL (12.0-16.0); Mean Corpuscular Volume 89.4 fL (80-100); Mean Platelet Volume 9.3 fL (7.4-10.4); Platelet Count 209 K/uL (130-400); RDW Coefficient of Variation 12.8 % (11.5-14.5); Red Blood Count 3.98 M/uL (4.2-5.4); White Blood Count 5.95 K/uL (4.8-10.8)
[2019-04-10 07:32] LABS: BUN Creatinine Ratio 14.6 (10-20); Calcium 8.4 mg/dl (8.5-10.1); Creatinine Clr Calc Pharmacy 74.3 ml/min; Est GFR (African American) 74.1; Potassium 3.8 mmol/L (3.5-5.1)
[2019-04-10] MEDS: LACTATED RINGER'S 1,000 ML IV SCH (08:10)
[2019-04-10] MEDS: DEXAMETHASONE CONC 3.75 MG, NYSTATIN 30 ML, DiphenhydrAMINE Syrup 300 MG, ORA-SWEET SYR... PO SCH ×2 (08:11→12:04)
[2019-04-10 08:16] LABS: ALC (manual) 2.74 K/uL (1.2-3.4); Eosinophils # (manual) 0.05 K/uL (0-0.5); Eosinophils % (manual) 0.9 %; Lymphocytes # (manual) 1.55 K/uL (1.2-3.4); Lymphocytes % (manual) 26.1 %; Monocytes # (manual) 0.26 K/uL (0.11-0.59); Monocytes % (manual) 4.3 %; Neutrophils % (manual) 48.7 %; RBC Morphology Unremarkable; Reactive Lymphocytes # (manual) 1.19 K/uL
[2019-04-10] MEDS: FLUTICASONE PROPIONATE NA SPR 16 GM BTL SCH (08:16)
[2019-04-10] MEDS: CHOLECALCIFEROL 1,000 UNITS TAB PO SCH (08:16)
[2019-04-10] MEDS: MAGNESIUM OXIDE 400 MG TAB PO SCH (08:17)
[2019-04-10] MEDS: LORATADINE 10 MG TAB PO SCH (08:17)
[2019-04-10] MEDS: VENLAFAXINE HCL XR 75 MG CAPXR PO SCH (08:17)
[2019-04-10] MEDS: METOPROLOL TARTRATE 25 MG TAB PO SCH (08:17)
[2019-04-10] MEDS: SUCRALFATE 1 GM TAB PO SCH ×2 (08:17→12:06)
[2019-04-10] MEDS: LINACLOTIDE 145 MCG PO SCH (08:18)
[2019-04-10] MEDS: INSULIN ASPART 100 UNITS/ML 3 ML PEN SC SCH ×2 (09:01→13:50)
--- NOTE | 2019-04-10 13:04 | Surgery Progress Note ---
Date of Service April 10, 2019 Assessment & Plan (1) Acute appendicitis: POD #4 s/p Lap Appy with [facility] Patient doing ok from surgical standpoint, but still having some complaints of dizziness. She reports that she is going to try to increase her water intake today to see if that helps. Patient not ready for discharge today- possibly tomorrow. Tolerating low fiber diet and pain controlled with PO pain meds. Subjective Patient resting in bed- reports that yesterday she thought that she might be able to go home, but she became dizzy and her blood pressure readings were low 90s/50s. Patient states that she is still dizzy today. She feels that this may be a result of dehydration. She states that she does drink a large amount of water each day, but feels very dry while here in the hospital. She reports that her abdominal pain is well controlled with PO paid medication. She is tolerating a regular diet. Denies nausea or vomiting. +BM yesterday Physical Exam Gastrointestinal (Abdomen): Percussion/Palpation: abdomen soft; abdomen nontender surgical incisions with dressing- clean, dry. Results & Data Vital Signs (Past 12 Hours) Vital Signs Temp Pulse Resp BP Pulse Ox 04/10/19 07:39 36.5 C 60 18 121/65 96 (1) Acute appendicitis Acute appendicitis type: with localized peritonitis Appendicitis abscess presence: without abscess Appendicitis gangrene presence: unspecified whether gangrene present Appendicitis perforation presence: without perforation Qualified Code(s): K35.30 - Acute appendicitis with localized peritonitis, without perforation or gangrene
--- NOTE | 2019-04-10 14:46 | Hospitalist Progress Note ---
Date of Service April 10, 2019 Assessment & Plan (1) Orthostasis: orthos today wnl. resolved. (2) S/P appendectomy: POD #4 - s/p lap appy. moving bowels. tolerating diet. d/c instructions and restrictions per surgery. I believe she feels poorly because of a viral process - see below. (3) Acute pharyngitis: Magic mouthwash qid prn discomfort. Throat cx neg for strep. CBC today with atypical lymphocytes highly suggestive of viral process. Monospot negative; send EBV titers. Discussed viral nature of her illness. Discussed with her that if she indeed has mono what to expect over next few weeks. Symptomatic care reviewed. (4) Dyslipidemia: Continue crestor. (5) Hypothyroidism: TSH this admission wnl. Cont synthroid. (6) GERD (gastroesophageal reflux disease): Cont PPI at d/c. Stable. (7) Hypertension: Cont Lisinopril and Metoprolol. Orthostatic BPs normal today. (8) Gastroparesis: Improved nausea today. Tolerating diet. (9) Diabetes: remains well-controlled resume normal regimen of meds at discharge (10) Panic disorder with agoraphobia: cont effexor for now (see below) (11) Prolonged QT interval: Electrolytes have been normal. suspect mildly prolonged QTc is due to her effexor. discussed other meds with pharmacy -- linzess likely not causing it. recommend she speak with prescriber of effexor to see if something else can be used in [place] of. again QTc is about 500msec thus it is only minimally prolonged. from medical standpoint can d/c home. f/u with PCP within 1 week. Subjective had bowel movement today. passing plenty of flatus. no vomiting. occasional nausea. eating and keeping it down. still with fatigue. sore throat improved. no fevers or chills. dizziness - improved but occasionally gets it. Review of Systems 2 Constitutional: + fatigue; no fever and no chills Eyes: no discharge Respiratory: + cough; no dyspnea and no sputum production Cardiovascular: no chest pain Gastrointestinal: + abdominal pain (incisions) and + nausea; no vomiting Physical Exam Constitutional: well developed, well nourished and + morbidly obese; no acute distress Eyes: + conjunctival abnormality (injected - right; drainage resolved) ENMT: Mouth: + oropharynx abnormality (erythematous but tonsils not enlarged; no ulcers) Respiratory: normal respiratory effort, lungs clear to auscultation Cardiovascular: Rate/Rhythm: regular rate and regular rhythm Heart Sounds: normal S1 and normal S2; no murmur Vessels: posterior tibial pulses present and dorsalis pedis pulses present; no JVD Gastrointestinal (Abdomen): Inspection/Auscultation: normal bowel sounds Percussion/Palpation: abdomen soft; abdomen nontender, no guarding and no hepatosplenomegaly Psychiatric: A+Ox3, euthymic affect Lymphatic: + cervical lymphadenopathy (multiple nodes, >1cm) Results & Data Vital Signs (Past 12 Hours) Vital Signs Temp Pulse Pulse Resp BP BP Pulse Ox 04/10/19 14:39 36.5 C 57 L 60 18 121/65 132/72 96 04/10/19 07:39 36.5 C 60 18 121/65 96 Laboratory Results Laboratory Results - last 24 hr 04/09/19 04/09/19 04/10/19 17:05 21:52 06:34 WBC 5.95 RBC 3.98 L Hgb 12.1 Hct 35.6 L MCV 89.4 MCH 30.4 MCHC 34.0 RDW Std Deviation 42.0 RDW Coeff of [place] 12.8 Plt Count 209 MPV 9.3 Neutrophils % (Manual) 48.7 Lymphocytes % (Manual) 26.1 Reactive Lymphs % (Man) 20.0 Monocytes % (Manual) 4.3 Eosinophils % (Manual) 0.9 Neutrophils # (Manual) 2.90 Total Absolute Neuts 2.90 Lymphocytes # (Manual) 1.55 Reactive Lymphs # 1.19 Total Abs Lymphocytes 2.74 Monocytes # (Manual) 0.26 Eosinophils # (Manual) 0.05 RBC Morphology Unremarkable Sodium Potassium Chloride Carbon Dioxide Anion Gap BUN Creatinine Est Cr Clr Drug Dosing Est GFR ( Amer) Est GFR (Non-Af Amer) BUN/Creatinine Ratio Glucose POC Glucose 100 H 126 H Calcium EBV Capsid Ag IgG Ab EBV Capsid Ag IgM Ab EBV EA Restrict+Diffuse EBV Nuclear Antigen Ab Monoscreen 04/10/19 04/10/19 04/10/19 06:34 06:34 06:34 WBC RBC Hgb Hct MCV MCH MCHC RDW Std Deviation RDW Coeff of [place] Plt Count MPV Neutrophils % (Manual) Lymphocytes % (Manual) Reactive Lymphs % (Man) Monocytes % (Manual) Eosinophils % (Manual) Neutrophils # (Manual) Total Absolute Neuts Lymphocytes # (Manual) Reactive Lymphs # Total Abs Lymphocytes Monocytes # (Manual) Eosinophils # (Manual) RBC Morphology Sodium 142 Potassium 3.8 Chloride 107 Carbon Dioxide 30 Anion Gap 5.0 BUN 15 Creatinine 1.01 Est Cr Clr Drug Dosing 74.3 Est GFR ( Amer) 74.1 Est GFR (Non-Af Amer) 64.0 BUN/Creatinine Ratio 14.6 Glucose 112 H POC Glucose Calcium 8.4 L EBV Capsid Ag IgG Ab Pending EBV Capsid Ag IgM Ab Pending EBV EA Restrict+Diffuse Pending EBV Nuclear Antigen Ab Pending Monoscreen Negative 04/10/19 04/10/19 08:14 12:06 WBC RBC Hgb Hct MCV MCH MCHC RDW Std Deviation RDW Coeff of [place] Plt Count MPV Neutrophils % (Manual) Lymphocytes % (Manual) Reactive Lymphs % (Man) Monocytes % (Manual) Eosinophils % (Manual) Neutrophils # (Manual) Total Absolute Neuts Lymphocytes # (Manual) Reactive Lymphs # Total Abs Lymphocytes Monocytes # (Manual) Eosinophils # (Manual) RBC Morphology Sodium Potassium Chloride Carbon Dioxide Anion Gap BUN Creatinine Est Cr Clr Drug Dosing Est GFR ( Amer) Est GFR (Non-Af Amer) BUN/Creatinine Ratio Glucose POC Glucose 114 H 131 H Calcium EBV Capsid Ag IgG Ab EBV Capsid Ag IgM Ab EBV EA Restrict+Diffuse EBV Nuclear Antigen Ab Monoscreen PG Care Time/CCT Total # of Minutes Spent Total Time Spent with Patient: Total time spent is greater than 50% in coordination of care (as documented) at patient's floor/unit and/or counseling patient: (1) Acute pharyngitis Pharyngitis/tonsillitis etiology: unspecified etiology Qualified Code(s): J02.9 - Acute pharyngitis, unspecified (2) Hypothyroidism Hypothyroidism type: unspecified Qualified Code(s): E03.9 - Hypothyroidism, unspecified (3) GERD (gastroesophageal reflux disease) Esophagitis presence: esophagitis presence not specified Qualified Code(s): K21.9 - Gastro-esophageal reflux disease without esophagitis (4) Hypertension Hypertension type: essential hypertension Qualified Code(s): I10 - Essential (primary) hypertension (5) Diabetes Diabetes mellitus type: type 2 Diabetes mellitus chcf insulin use: with chcf use Diabetes mellitus complication status: without complication Qualified Code(s): E11.9 - Type 2 diabetes mellitus without complications; 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
--- NOTE | 2019-04-13 03:21 | Discharge Summary ---
ADMITTING DIAGNOSIS: Acute appendicitis. DISCHARGE DIAGNOSIS: Acute appendicitis. OPERATION: Laparoscopic appendectomy. SURGEON: Nikki Pena MD DETAILS OF DISCHARGE SUMMARY: This is a 53-year-old female who presented to the ED with acute abdominal pain. The patient had a CT scan diagnosed of acute appendicitis. I took the patient to the OR. We did a laparoscopic appendectomy. The patient tolerated the procedure well. After procedure, the patient transferred to recovery room and later on transferred patient to the regular floor; however, after the procedure, the patient still developed significant nausea and patient had to stay in the hospital another 3 days for control of her nausea. On 04/10/2019, the patient did much better. The nausea and abdominal pain already gone and she tolerated a regular diet. PHYSICAL EXAMINATION: VITAL SIGNS: Temperature is 36.5, heart rate is 60, respiratory rate 18, blood pressure 132/72, O2 saturation 96% on room air. GENERAL: The patient is alert, awake, oriented x3. HEENT: With normal limitation. NEUROLOGIC: Intact. NECK: No JVD. CHEST: Bilateral lung sounds clear. HEART: Normal S1, S2. No murmurs. ABDOMEN: Soft, no tenderness. All dressing intact. All incision intact and no redness, no tenderness. Bowel sounds positive. EXTREMITIES: No edema. PLAN: The patient wanted to go home. We gave the patient postop care instruction and patient understands and I will follow up the patient in 1 week.
[2019-04-13 16:16] LABS: EBV Virus Capsid Ag IgG Ab >750.00 U/ML
== END 2019-04-10 15:09 | disposition home or self-care (01) ==
LOC: ED 13:42 → 3N 18:26 → ASU 18:26 → ED 18:26

== ENCOUNTER 2019-07-16 23:36 | Inpatient (IN) ==
[2019-07-17 00:35] LABS: Basophils # (auto) 0.02 K/uL (0-0.2); Basophils % (auto) 0.2 %; Eosinophils # (auto) 0.09 K/uL (0-0.5); Hematocrit (blood only) 39.9 % (37-47); Hemoglobin 14.6 g/dL (12.0-16.0); Immature Granulocytes # (auto) 0.02 K/uL (0.00-0.02); Immature Granulocytes % (auto) 0.2 %; Lymphocytes # (auto) 4.27 K/uL (1.2-3.4); Lymphocytes % (auto) 45.3 %; Mean Corpuscular Hemoglobin 32.6 pg (25-34); Mean Corpuscular Hgb Conc 36.6 g/dL (32-36); Mean Corpuscular Volume 89.1 fL (80-100); Mean Platelet Volume 10.8 fL (7.4-10.4); Monocytes # (auto) 0.63 K/uL (0.11-0.59); Monocytes % (auto) 6.7 %; Neutrophils % (auto) 46.6 %; Nucleated RBC % (auto) 1.1 %; Platelet Count 271 K/uL (130-400); RDW Coefficient of Variation 13.2 % (11.5-14.5); RDW Standard Deviation 43.1 fL (36.4-46.3); Red Blood Count 4.48 M/uL (4.2-5.4); White Blood Count 9.43 K/uL (4.8-10.8)
[2019-07-17] MEDS ORDERED: LORazepam 1 MG/2 ML VIAL IV STA (00:44)
[2019-07-17 01:03] LABS: Albumin Level 3.8 gm/dl (3.4-5.0); Blood Urea Nitrogen 14 mg/dl (7-18); Calcium 8.6 mg/dl (8.5-10.1); Carbon Dioxide 26 mmol/L (21-32); Chloride 104 mmol/L (98-107); Creatinine Clr Calc Pharmacy 68.5 ml/min; Est GFR (African American) 67.9; Est GFR (Non-African American) 58.6; Lipase 209 U/L (73-393)
[2019-07-17 01:10] LABS: Alkaline Phosphatase 90 U/L (45-117); Bilirubin,Total 0.6 mg/dl (0.2-1); Troponin I < 0.015 ng/ml (0-0.045)
[2019-07-17 01:19] LABS: Glucose 160 mg/dl (70-99); Sodium 140 mmol/L (136-145)
[2019-07-17 01:23] LABS: Alanine Aminotransferase 39 U/L (12-78); Albumin Globulin Ratio 0.9 (0.9-2); Globulin 4.1 gm/dl (2.5-4.0); Total Protein 7.9 gm/dl (6.4-8.2)
[2019-07-17 01:33] LABS: BUN Creatinine Ratio 13.2 (10-20)
[2019-07-17] MEDS ORDERED: PROMETHAZINE 12.5 MG/50.5 ML BAG IV STA (01:48)
[2019-07-17 02:15] LABS: Potassium 3.8 mmol/L (3.5-5.1)
[2019-07-17 02:20] LABS: Magnesium 1.7 mg/dl (1.8-2.4)
--- NOTE | 2019-07-17 04:00 | History & Physical Report ---
Date of Service July 17, 2019 Assessment & Plan (1) Intermittent palpitations: Patient with symptomatic palpitations, increasing in frequency and severity over the last 2 weeks. Witnessed bigeminy on monitor by ER physician during symptomatic episode. Patient with cardiac risk factors of HTN, HLP, DM, family history of premature CAD. Presently afebrile, HD stable. Ectopy noted on exam with PACs, PVCs on monitor -Observation to medical floor with telemetry monitoring -Check Lyme panel -Check 2D echocardiogram -Cardiology consultation appreciated -Continue Metoprolol 25mg po BID -Optimize electrolytes -Avoid QT prolonging agents Present on Admission?: Yes (2) Epigastric abdominal pain: Patient reports epigastric discomfort, bloating and fullness. She is mildly distended on exam, bowel sounds present. ?gastroparesis, hiatal hernia, constipation -Continue Omeprazole -Reglan 5mg IV q 8 hours as needed for abdominal fullness/pain Present on Admission?: Yes (3) Dyslipidemia: Chronic -Continue Simvastatin 40mg po qHS Present on Admission?: Yes (4) Hypothyroidism: Chronic. TSH=2.32 -Continue Synthroid 112 mcg po daily Present on Admission?: Yes (5) GERD (gastroesophageal reflux disease): Chronic. Increased pain as above. No melena/hematochezia -Continue Omeprazole 40mg po qHS -Maalox PRN -Avoid Zofran d/p prolonged QT Present on Admission?: Yes (6) Hypertension: Blood pressure stable -Continue Lisinopril 10mg po qHS -Continue Metoprolol 25mg po BID -Continue to monitor Present on Admission?: Yes (7) Gastroparesis: Chronic. Typically managed with careful diet. Patient feels that her gastroparesis may be causing some of her abdominal discomfort. She is unable to tolerate Zofran secondary to prolonged QT interval. She is typically able to tolerate Reglan. -Reglan 5mg IV TID PRN -Monitor QT interval Present on Admission?: Yes (8) Panic disorder with agoraphobia: Chronic. Patient feels that her symptoms are fairly well controlled at present. -Continue Effexor 37.5mg po daily -Clonazepam 1mg po TID Present on Admission?: Yes (9) Chest pain: Patient with occasional chest discomfort, atypical. Does not seem to be exertional in nature. She has history of HTN, HLP, DM and FH of premature CAD. Negative stress test in 2016 -Cardiology consultation appreciated -Consider outpatient stress testing -Continue home medications as above Present on Admission?: Yes (10) Diabetes: Blood sugar presently 160. Last Hgb A1c=9.5 in August 2017 -Lantus 10 u BID -ISS -Check AIC -Continue to monitor F/E/N - [place]. Mg repletion IV, continue PO, CC/AHA diet as tolerated Ppx - Low risk Code -Full Dispo -Observation to medical floor with telemetry Present on Admission?: Yes History of Present Illness Chief Complaint: Palpitations Primary Care Provider: ARELY Shah Ulysses Marcum is a 54yo C female with multiple medical problems, notably HTN, HLP, DM, GERD, Hypothyroid, QT prolongation and Anxiety presenting with symptomatic palpitations. She reports having episodes of palpitations fairly consistently for the last year. She noted an increase in frequency and duration of palpitations since July 02. She reports frequent episodes of pain that starts in her upper abdomen followed by "foggy" thinking, nausea, heart racing and dizziness. These episodes typically occur every other day and occur multiple times per day. They typically last less than 1 minute. Non- exertional, non-positional. No instigating or relieving factors identified. No syncope. Patient with occasional left sided chest discomfort, episodic, non-exertional. 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 She occasionally experiences chest discomfort with exertion, climbing stairs or playing with the dogs. Also with exertional SOB on occasion. No personal history of CAD. As above, HTN/HLP/DM and strong family history of CAD - sisters x 2 with heart disease in their 40's. Patient has never had a heart attack or cardiac catheterization. She has longstanding history of prolonged QT interval. No history of CHF. She follows with Cardiology and was to have a Holter monitor for diagnosis of her palpitations. In the ER she was afebrile, hemodynamically stable. Dr. Gunn at bedside witnessed an episode of palpitations - patient reported feeling the episode come on, discomfort, diaphoretic. Dr. Gunn stated the patient seemed to be in bigeminy during the duration of the episode. Symptoms and bigeminy resolved spontaneously. Stress Test - 02/04/16 - Negative, target heart rate not achieved. CP present prior to exercise and remained throughout without worsening. Echo with normal LV size and function, EF of 55-60%, no WMA, mild LVH and MR Allergies Allergy/AdvReac Type Severity Reaction Status Date / Time homatropine Allergy Severe ANNAPHYLACTIC Verified 07/17/19 00:30 SHOCK hydrocodone Allergy Severe ANNAPHYLACTIC Verified 07/17/19 00:30 SHOCK erythromycin base Allergy Intermediate RASH Verified 07/17/19 00:30 Sulfa (Sulfonamide Allergy Intermediate RASH Verified 07/17/19 00:30 Antibiotics) methylprednisolone Allergy Mild RASH Verified 07/17/19 00:30 ondansetron Allergy Mild Cardiac Verified 07/17/19 00:30 symptoms hydromorphone AdvReac Intermediate confusion Verified 07/17/19 00:30 Home Medications Home Medications Medication Instructions Recorded Confirmed Type lisinopril 10 mg PO HS #0 11/12/14 07/17/19 History metoprolol tartrate [Lopressor] 25 mg PO BID #0 tab 02/12/16 07/17/19 History hydrochlorothiazide 25 mg PO DAILY PRN #0 07/29/16 07/17/19 History loratadine [Claritin] 10 mg PO QAM #0 07/29/16 07/17/19 History omeprazole 40 mg PO HS #0 07/29/16 07/17/19 History ferrous sulfate 325 mg PO HS #0 08/09/16 07/17/19 History cholecalciferol (vitamin D3) 2,000 unit PO QAM #0 09/01/17 07/17/19 History levothyroxine 112 mcg PO QAM #0 09/01/17 07/17/19 History Linzess 145 mcg PO QAM #0 12/11/17 07/17/19 History Basaglar KwikPen U-100 Insulin 24 unit SUBCUT HS #0 03/26/18 07/17/19 History insulin lispro [Admelog U-100 1 sliding scale dose SUBCUT 04/06/19 07/17/19 History Insulin lispro] DIRECTED magnesium oxide 400 mg PO BID 04/06/19 07/17/19 History clonazepam 1 mg PO TID 05/30/19 07/17/19 History simvastatin 40 mg PO HS 05/30/19 07/17/19 History venlafaxine [Effexor XR] 37.5 mg PO DAILY 07/17/19 07/17/19 History Past Med/Surg History Medical History Acute abdominal pain Dyslipidemia (Chronic) Hypothyroidism (Chronic) GERD (gastroesophageal reflux disease) (Chronic) Hypertension (Chronic) Diabetes (Chronic) Lumbar radiculopathy (Chronic) Panic disorder with agoraphobia (Chronic) PTSD (post-traumatic stress disorder) (Chronic) Gastroparesis (Chronic) Prolonged QT interval Surgical History S/P appendectomy (Acute) History of delivery Family History Other Heart disease Social History Preferred Language: [place]ian Communication Ability: Effective Acidizer Required: No Beliefs That Will Affect Care: None Current Living Situation: Spouse and Family Feels Safe at Home: Yes Smoking Status: Current every day smoker Hx Alcohol Use: Yes Alcohol type: beer and wine Hx Substance Use: Yes substance use type: marijuana Substance Use Type Other:: Medical Marijuana Last Used Substance: Days (ago) Review of Systems Review of Systems: All systems reviewed & are unremarkable except as noted in HPI & below +flank and back pain +dizziness +nausea +abdominal fullness Physical Exam Physical Exam: General: patient resting comfortably, NAD, slightly anxious in appearance, non-toxic in appearance, AA&O x 4 Skin: warm, dry, intact, no rashes or lesions HEENT: NC/AT, PERRL, EOMI, anicteric sclera, conjunctiva without injection, external ear normal to inspection and nontender, nares patent, moist mucus membranes, dentition intact, no oropharyngeal lesions, neck supple, trachea midline, no LAD, no thyromegaly, no JVD Heart: +S1/S2, regular with ectopy, no m/r/g Lungs: equal air entry bilaterally, no rales/rhonchi/wheezes Abd: +BS, soft, NT, mildly distended, tympanic to percussion, no masses/organomegaly/ascites Ext: warm, 2+ pulses in UE/LE bilaterally, no clubbing/cyanosis or edema Neuro: nonfocal, patient AA&O x 4, speech intact, no facial droop, moving all extremities on command with equal strength 5/5 Results & Data Vital Signs (Past 12 Hours) Vital Signs Temp Pulse Pulse Resp BP BP Pulse Ox 07/17/19 02:55 86 24 131/59 L 97 07/17/19 02:19 86 20 122/72 97 07/17/19 00:58 84 22 132/60 97 07/16/19 23:45 86 25 H 140/75 97 07/16/19 23:39 36.7 C 102 H 20 158/83 H 98 Laboratory Results Lab Results 07/16/19 07/16/19 07/17/19 Range/Units 23:48 23:48 01:30 WBC 9.43 (4.8-10.8) K/uL RBC 4.48 (4.2-5.4) M/uL Hgb 14.6 (12.0-16.0) g/dL Hct 39.9 (37-47) % MCV 89.1 (80-100) fL MCH 32.6 (25-34) pg MCHC 36.6 H (32-36) g/dL RDW Std Deviation 43.1 (36.4-46.3) fL RDW Coeff of [place] 13.2 (11.5-14.5) % Plt Count 271 (130-400) K/uL MPV 10.8 H (7.4-10.4) fL Immature Gran % (Auto) 0.2 % Neut % (Auto) 46.6 % Lymph % (Auto) 45.3 % [place] % (Auto) 6.7 % Eos % (Auto) 1.0 % Baso % (Auto) 0.2 % Immature Gran # (Auto) 0.02 (0.00-0.02) K/uL Neut # (Auto) 4.40 (1.4-6.5) K/uL Lymph # (Auto) 4.27 H (1.2-3.4) K/uL [place] # (Auto) 0.63 H (0.11-0.59) K/uL Eos # (Auto) 0.09 (0-0.5) K/uL Baso # (Auto) 0.02 (0-0.2) K/uL Absolute Nucleated RBC 0.10 H (0-0) K/uL Nucleated RBC % (auto) 1.1 % Sodium 140 (136-145) mmol/L Potassium 3.8 (3.5-5.1) mmol/L Chloride 104 (98-107) mmol/L Carbon Dioxide 26 (21-32) mmol/L Anion Gap 10.0 (3-11) BUN 14 (7-18) mg/dl Creatinine 1.08 (0.6-1.2) mg/dl Est Cr Clr Drug Dosing 68.5 ml/min Est GFR ( Amer) 67.9 Est GFR (Non-Af Amer) 58.6 BUN/Creatinine Ratio 13.2 (10-20) Glucose 160 H (70-99) mg/dl Calcium 8.6 (8.5-10.1) mg/dl Magnesium 1.7 L (1.8-2.4) mg/dl Total Bilirubin 0.6 (0.2-1) mg/dl AST 31 (15-37) U/L ALT 39 (12-78) U/L Alkaline Phosphatase 90 (45-117) U/L Troponin I < 0.015 (0-0.045) ng/ml Total Protein 7.9 (6.4-8.2) gm/dl Albumin 3.8 (3.4-5.0) gm/dl Globulin 4.1 H (2.5-4.0) gm/dl Albumin/Globulin Ratio 0.9 (0.9-2) Lipase 209 (73-393) U/L TSH 2.320 (0.300-4.500) uIu/ml Diagnostic Findings CXR - no CHF, PNA, PTX. Appears to have elevation of the right hemidiaphragm, ?hiatal hernia KUB - stool burden noted in right ECG Additional Comments: The study shows SR at 93bpm, PVCs and PACs present, normal axis, TO=218, QRS=96, CNc=159. When compared to prior study, PACs now present Code Status & VTE Plan Code Status FULL VTE Prophylaxis Plan VTE Prophylaxis will be ordered: No Reason for no VTE drug order: Treatment not indicated Reason for no VTE mechanical prophylaxis: Treatment not indicated PG Care Time/CCT Total # of Minutes Spent Total Time Spent with Patient: Total time spent is greater than 50% in coordination of care (as documented) at patient's floor/unit and/or counseling patient: (1) Hypothyroidism Hypothyroidism type: unspecified Qualified Code(s): E03.9 - Hypothyroidism, unspecified (2) GERD (gastroesophageal reflux disease) Esophagitis presence: esophagitis presence not specified Qualified Code(s): K21.9 - Gastro-esophageal reflux disease without esophagitis (3) Hypertension Hypertension type: essential hypertension Qualified Code(s): I10 - Essential (primary) hypertension (4) Chest pain Chest pain type: unspecified Qualified Code(s): R07.9 - Chest pain, unspecified (5) Diabetes Diabetes mellitus type: type 2 Diabetes mellitus ferry terminal agent insulin use: with jail use Diabetes mellitus complication status: without complication Qualified Code(s): E11.9 - Type 2 diabetes mellitus without complications; Z79.4 - penitentiary (current) use of insulin
[2019-07-17] MEDS ORDERED: DEXTROSE 50% 50 ML SYRINGE IV PRN (04:22)
[2019-07-17] MEDS ORDERED: METOCLOPRAMIDE HCL INJ 5 MG/ML 2 ML VIAL IV PRN (04:22)
[2019-07-17] MEDS ORDERED: GLUCAGON FOR INJ 1 MG VIAL SQ PRN (04:22)
[2019-07-17] MEDS ORDERED: GLUCOSE 40% GEL 15 GM TUBE PO PRN (04:22)
[2019-07-17] MEDS ORDERED: CARBOHYDRATES FOR HYPOGLYCEMIA PO PRN (04:22)
[2019-07-17] MEDS ORDERED: BISACODYL 10 MG SUPP PR PRN (04:22)
[2019-07-17] MEDS ORDERED: GLUCOSE 10 TABS/TUBE PO PRN (04:22)
[2019-07-17 04:50] LABS: Phosphorus 3.4 mg/dl (2.5-4.9)
[2019-07-17] MEDS: MAGNESIUM SULFATE / D5W 1 GM/100 ML BAG IV SCH ×2 (05:07→06:09)
[2019-07-17] MEDS: LINZESS~ORDER AWAITING ACTION SCH ×3 (05:13→17:15)
[2019-07-17 06:08] LABS: Lyme Ab IgG w/WB Rflx Negative (Negative); Lyme Ab IgM w/WB Rflx Negative (Negative)
[2019-07-17] MEDS: LEVOTHYROXINE SODIUM 112 MCG TABLET PO SCH (06:09)
--- NOTE | 2019-07-17 07:27 | Emergency Department Note ---
Entered by Shania Childress acting as a scribe for Gloria Gunn DO History of Present Illness General Chief complaint: Arrhythmia/Palpitations Stated complaint: HEART PULP, CHEST TIGHTNESS Time Seen by Provider: 07/16/19 23:43 Source: patient History of Present Illness Provider complaint: chest pain Onset (ago): day(s) (several ) Location: chest Pain Consistency: + intermittent Maximum Pain Intensity: 6 Quality: + other (tightness) Relieved By: + none Exacerbated By: + none Associated symptoms: + loss of appetite, + nausea/vomiting (+nausea, -vomiting) and + other (+back pain) The patient is a 54 year old female who presents to the Emergency Room with complaints of intermittent chest pain. The patient states that she has a history of prolonged QT and has been experiencing mid chest tightness, palpitations, nausea, and lower back pain episodes. She notes that her episodes start with the nausea and back pain and then the chest discomfort begins. The patient reports that she has intermittent episodes every other day. The patient mentions that on the she went to the ED where she was referred to her chauffeur. She states that her chauffeur has her scheduled to start wearing a Holter monitor in 2 days. She states that she has not had similar episodes in the past. The patient states that nothing worsens or exacerbates her pain. She states that she has a history of gastroparesis, hernia, appendectomy, insulin dependent diabetes, hypertension, and high cholesterol. She mentions that her blood glucose levels have been normal, but reports that she has had a lack of appetite with her episodes. She reports that she cannot sleep because of the pain. She mention that she has a family history of myocardial infarction from her sister. Home Medications Home Medications Medication Instructions Recorded Confirmed Type lisinopril 10 mg PO HS #0 11/12/14 07/17/19 History metoprolol tartrate [Lopressor] 25 mg PO BID #0 tab 02/12/16 07/17/19 History hydrochlorothiazide 25 mg PO DAILY PRN #0 07/29/16 07/17/19 History loratadine [Claritin] 10 mg PO QAM #0 07/29/16 07/17/19 History omeprazole 40 mg PO HS #0 07/29/16 07/17/19 History ferrous sulfate 325 mg PO HS #0 08/09/16 07/17/19 History cholecalciferol (vitamin D3) 2,000 unit PO QAM #0 09/01/17 07/17/19 History levothyroxine 112 mcg PO QAM #0 09/01/17 07/17/19 History Linzess 145 mcg PO QAM #0 12/11/17 07/17/19 History Basaglar KwikPen U-100 Insulin 24 unit SUBCUT HS #0 03/26/18 07/17/19 History insulin lispro [Admelog U-100 1 sliding scale dose SUBCUT 04/06/19 07/17/19 History Insulin lispro] DIRECTED magnesium oxide 400 mg PO BID 04/06/19 07/17/19 History clonazepam 0.5 mg PO TID 05/30/19 07/17/19 History simvastatin 40 mg PO HS 05/30/19 07/17/19 History venlafaxine [Effexor XR] 37.5 mg PO DAILY 07/17/19 07/17/19 History Allergies Allergy/AdvReac Type Severity Reaction Status Date / Time homatropine Allergy Severe ANNAPHYLACTIC Verified 07/17/19 00:30 SHOCK hydrocodone Allergy Severe ANNAPHYLACTIC Verified 07/17/19 00:30 SHOCK erythromycin base Allergy Intermediate RASH Verified 07/17/19 00:30 Sulfa (Sulfonamide Allergy Intermediate RASH Verified 07/17/19 00:30 Antibiotics) methylprednisolone Allergy Mild RASH Verified 07/17/19 00:30 ondansetron Allergy Mild Cardiac Verified 07/17/19 00:30 symptoms hydromorphone AdvReac Intermediate confusion Verified 07/17/19 00:30 Past Med/Surg History Medical History Prolonged QT interval Acute abdominal pain Dyslipidemia (Chronic) Hypothyroidism (Chronic) GERD (gastroesophageal reflux disease) (Chronic) Hypertension (Chronic) Diabetes (Chronic) Lumbar radiculopathy (Chronic) Panic disorder with agoraphobia (Chronic) PTSD (post-traumatic stress disorder) (Chronic) Gastroparesis (Chronic) Prolonged QT interval Surgical History S/P appendectomy (Acute) History of delivery Family History Other Heart disease Social History Preferred Language: Barbadian Communication Ability: Effective Senior [employer] 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 and A total of 10 systems reviewed and were otherwise negative Physical Exam Vital Signs Vital Signs - 24 hr 07/16/19 23:39 07/16/19 23:45 07/17/19 00:58 Temperature 36.7 C Temperature Source Oral Sepsis Recent Fever Within 48 Hours No Sepsis Action Taken by Nursing No Action Required Pulse Rate 102 H Pulse Rate [Finger] 86 84 Pulse Rhythm Regular Pulse Rhythm [Finger] Regular Regular Pulse Strength Normal Pulse Strength [Finger] Normal Normal Respiratory Rate 20 25 H 22 Respiratory Effort / Characteristics Non-Labored Spontaneous Non-Labored Spontaneous Non-Labored Spontaneous Respiratory Depth Normal Normal Normal Respiratory Pattern Regular Regular Regular Blood Pressure 158/83 H Blood Pressure [Right Arm] 140/75 132/60 Blood Pressure Mean 108 Blood Pressure Mean [Right Arm] 96 84 Blood Pressure Position Sitting Pulse Oximetry 98 97 97 Oxygen Delivery Method Room Air Room Air Room Air 07/17/19 02:19 07/17/19 02:55 Temperature Temperature Source Sepsis Recent Fever Within 48 Hours Sepsis Action Taken by Nursing Pulse Rate Pulse Rate [Finger] 86 86 Pulse Rhythm Pulse Rhythm [Finger] Regular Pulse Strength Pulse Strength [Finger] Normal Respiratory Rate 20 24 Respiratory Effort / Characteristics Non-Labored Spontaneous Respiratory Depth Normal Respiratory Pattern Regular Blood Pressure Blood Pressure [Right Arm] 122/72 131/59 L Blood Pressure Mean Blood Pressure Mean [Right Arm] 88 83 Blood Pressure Position Pulse Oximetry 97 97 Oxygen Delivery Method Room Air Room Air General: Appears anxious. HEENT: Head - normocephalic and atraumatic Pupils are equal, round, and reactive to light. Extraocular eye muscles are intact, and sclera are anicteric. Nose - moist nasal mucosa without discharge. Mouth - moist buccal mucosa. Oropharynx is nonerythematous and there is no tonsillar exudate or edema noted. Neck: Supple; no JVD, nuchal rigidity, cervical lymphadenopathy, or auscultated bruits. Heart: Irregular rate and regular rhythm. There is a normal S1 and S2 with no murmurs, clicks, or gallops appreciated. Lungs: Clear to auscultation bilaterally with no wheezes, rales, or rhonchi. Abdomen: Softwith good bowel sounds. Abdominal distention. Epigastric pain with palpation. There are no palpable pulsatile masses or hepatosplenomegaly. There is no guarding, rigidity, or rebound noted. Extremities: No evidence of cyanosis, clubbing, or edema. There are easily pal pable peripheral pulses. Skin: warm and dry with good turgor and no rashes. Course 2356: The patient was evaluated in room A3, and a complete history and physical examination were performed. An IV lock was initiated and labs were drawn as above. The patient was observed on the telemetry monitor and pulse oximeter. She did have persistent normal sinus rhythm with intermittent PVCs and episodes of bigeminy. A twelve-lead EKG was obtained. 0053: The patient was given Ativan through IV. The patient had an obstruction series performed 0149: I reevaluated the patient and updated her on her results. The patient is complaining of nausea and feeling ill, she will be given Phenergan IV. 0220: I reviewed the patient's case with Dr. Hanna- [facility] Hospitalist. He will evaluate the patient for further management. Administered Medications Acetaminophen (Tylenol) 650 mg PO Q4H PRN PRN Reason: pain/fever Stop: 08/16/19 04:21 Last Admin: 07/17/19 12:18 Dose: 650 mg Documented by: [id number] Ferrous Sulfate (Feosol) 325 mg PO HS DARLEEN Stop: 08/16/19 20:59 Last Admin: 07/17/19 21:12 Dose: 325 mg Documented by: [id number] Insulin Aspart (Novolog Flexpen) 0 units SC ACHS DARLEEN Stop: 08/16/19 07:29 Last Admin: 07/17/19 21:09 Dose: 4 units Documented by: [id number] Cosigned by: [id number] Admin: 07/17/19 18:04 Dose: Not Given Documented by: [id number] Cosigned by: [id number] Admin: 07/17/19 12:52 Dose: 6 units Documented by: [id number] Cosigned by: [id number] Admin: 07/17/19 08:53 Dose: 7 units Documented by: [id number] Cosigned by: [id number] Insulin Glargine (Lantus Solostar Pen) 10 units SC BID DARLEEN Stop: 08/16/19 08:59 Last Admin: 07/17/19 21:09 Dose: 10 units Documented by: [id number] Cosigned by: [id number] Admin: 07/17/19 08:55 Dose: 10 units Documented by: [id number] Cosigned by: [id number] Levothyroxine Sodium (Synthroid) 112 mcg PO DAILYBB [facility] Stop: 08/16/19 06:29 Last Admin: 07/17/19 06:09 Dose: 112 mcg Documented by: [id number] Lisinopril (Zestril) 10 mg PO HS [facility] Stop: 08/16/19 20:59 Last Admin: 07/17/19 21:11 Dose: 10 mg Documented by: [id number] Loratadine (Claritin) 10 mg PO QAM [facility] Stop: 08/16/19 08:59 Last Admin: 07/17/19 08:52 Dose: 10 mg Documented by: [id number] Magnesium Oxide (Mag-Ox) 400 mg PO BID [facility] Stop: 08/16/19 08:59 Last Admin: 07/17/19 21:11 Dose: 400 mg Documented by: [id number] Admin: 07/17/19 08:52 Dose: 400 mg Documented by: [id number] Metoclopramide HCl (Reglan) 10 mg IV TID PRN PRN Reason: abdominal pain Stop: 08/16/19 04:21 Last Admin: 07/17/19 19:03 Dose: 10 mg Documented by: [id number] Metoprolol Tartrate (Lopressor) 25 mg PO BID [facility] Stop: 08/16/19 08:59 Last Admin: 07/17/19 21:12 Dose: 25 mg Documented by: [id number] Admin: 07/17/19 08:52 Dose: 25 mg Documented by: [id number] Miscellaneous (Order Awaiting Action) 1 ea N/A QS [facility] Stop: 08/16/19 04:59 Last Admin: 07/17/19 17:15 Dose: Not Given Documented by: [id number] Admin: 07/17/19 09:22 Dose: Not Given Documented by: [id number] Admin: 07/17/19 05:13 Dose: Not Given Documented by: [id number] Pantoprazole Sodium (Protonix) 40 mg PO HS [facility] Stop: 08/16/19 20:59 Last Admin: 07/17/19 21:11 Dose: 40 mg Documented by: [id number] Simvastatin (Zocor) 40 mg PO HS DARLEEN Stop: 08/16/19 20:59 Last Admin: 07/17/19 21:11 Dose: 40 mg Documented by: [id number] Venlafaxine HCl (Effexor Extended Release) 37.5 mg PO DAILY DARLEEN Stop: 08/16/19 08:59 Last Admin: 07/17/19 08:52 Dose: 37.5 mg Documented by: [id number] Discontinued Medications Clonazepam (Klonopin) 1 mg PO TID DARLEEN Stop: 08/16/19 08:59 Last Admin: 07/17/19 14:05 Dose: 1 mg Documented by: [id number] Admin: 07/17/19 08:52 Dose: 1 mg Documented by: [id number] Lorazepam (Ativan) 1 mg in 2 mls @ 2 mls/min IV NOW STA Stop: 07/17/19 00:45 Last Admin: 07/17/19 00:53 Dose: 2 mls/min Documented by: [id number] Promethazine HCl (Phenergan) 12.5 mg in 50.5 mls @ 202 mls/hr IV NOW STA Stop: 07/17/19 02:02 Last Infusion: 07/17/19 02:59 Dose: 0 mls/hr Documented by: [id number] Admin: 07/17/19 02:18 Dose: 202 mls/hr Documented by: [id number] Magnesium Sulfate/Dextrose (Magnesium Sulfate / D5w) 1 gm in 100 mls @ 100 mls/hr IV Q1H DARLEEN Stop: 07/17/19 07:14 Last Infusion: 07/17/19 07:25 Dose: 0 mls/hr Documented by: [id number] Admin: 07/17/19 06:09 Dose: 100 mls/hr Documented by: [id number] Infusion: 07/17/19 06:07 Dose: 100 mls/hr Documented by: [id number] Admin: 07/17/19 05:07 Dose: 100 mls/hr Documented by: [id number] Magnesium Sulfate/Dextrose (Magnesium Sulfate / D5w) 1 gm in 100 mls @ 100 mls/hr IV ONE ONE Stop: 07/17/19 12:29 Last Infusion: 07/17/19 13:42 Dose: 0 mls/hr Documented by: [id number] Admin: 07/17/19 12:10 Dose: 100 mls/hr Documented by: [id number] Metoclopramide HCl (Reglan) 5 mg IV TID PRN PRN Reason: abdominal pain Stop: 08/16/19 04:21 Last Admin: 07/17/19 12:14 Dose: 5 mg Documented by: [id number] Medical Decision Making Differential Diagnosis Differential diagnosis includes: gastroparesis, hiatal hernia, cardiac ischemia, cardiac dysrhythmia, and coronary artery disease. Medical Records Attestation: I reviewed the patient's medical records. Home Medications Current Medication List: was personally reviewed by me Laboratory Data Attestation: I reviewed the patient's lab results. Result diagrams: 07/16/19 23:48 07/17/19 01:30 Lab Results 07/16/19 07/16/19 07/16/19 Range/Units 23:48 23:48 23:48 WBC 9.43 (4.8-10.8) K/uL RBC 4.48 (4.2-5.4) M/uL Hgb 14.6 (12.0-16.0) g/dL Hct 39.9 (37-47) % MCV 89.1 (80-100) fL MCH 32.6 (25-34) pg MCHC 36.6 H (32-36) g/dL RDW Std Deviation 43.1 (36.4-46.3) fL RDW Coeff of [place] 13.2 (11.5-14.5) % Plt Count 271 (130-400) K/uL MPV 10.8 H (7.4-10.4) fL Immature Gran % (Auto) 0.2 % Neut % (Auto) 46.6 % Lymph % (Auto) 45.3 % [facility] % (Auto) 6.7 % Eos % (Auto) 1.0 % Baso % (Auto) 0.2 % Immature Gran # (Auto) 0.02 (0.00-0.02) K/uL Neut # (Auto) 4.40 (1.4-6.5) K/uL Lymph # (Auto) 4.27 H (1.2-3.4) K/uL [facility] # (Auto) 0.63 H (0.11-0.59) K/uL Eos # (Auto) 0.09 (0-0.5) K/uL Baso # (Auto) 0.02 (0-0.2) K/uL Absolute Nucleated RBC 0.10 H (0-0) K/uL Nucleated RBC % (auto) 1.1 % Sodium 140 (136-145) mmol/L Potassium (3.5-5.1) mmol/L Chloride 104 (98-107) mmol/L Carbon Dioxide 26 (21-32) mmol/L Anion Gap 10.0 (3-11) BUN 14 (7-18) mg/dl Creatinine 1.08 (0.6-1.2) mg/dl Est Cr Clr Drug Dosing 68.5 ml/min Est GFR ( Amer) 67.9 Est GFR (Non-Af Amer) 58.6 BUN/Creatinine Ratio 13.2 (10-20) Glucose 160 H (70-99) mg/dl Calcium 8.6 (8.5-10.1) mg/dl Phosphorus (2.5-4.9) mg/dl Magnesium (1.8-2.4) mg/dl Total Bilirubin 0.6 (0.2-1) mg/dl AST (15-37) U/L ALT 39 (12-78) U/L Alkaline Phosphatase 90 (45-117) U/L Troponin I < 0.015 (0-0.045) ng/ml Total Protein 7.9 (6.4-8.2) gm/dl Albumin 3.8 (3.4-5.0) gm/dl Globulin 4.1 H (2.5-4.0) gm/dl Albumin/Globulin Ratio 0.9 (0.9-2) Lipase 209 (73-393) U/L TSH 2.320 (0.300-4.500) uIu/ml Lyme Disease IgG Ab Negative (Negative) Lyme Disease IgM Ab Negative (Negative) 07/17/19 Range/Units 01:30 WBC (4.8-10.8) K/uL RBC (4.2-5.4) M/uL Hgb (12.0-16.0) g/dL Hct (37-47) % MCV (80-100) fL MCH (25-34) pg MCHC (32-36) g/dL RDW Std Deviation (36.4-46.3) fL RDW Coeff of [place] (11.5-14.5) % Plt Count (130-400) K/uL MPV (7.4-10.4) fL Immature Gran % (Auto) % Neut % (Auto) % Lymph % (Auto) % [facility] % (Auto) % Eos % (Auto) % Baso % (Auto) % Immature Gran # (Auto) (0.00-0.02) K/uL Neut # (Auto) (1.4-6.5) K/uL Lymph # (Auto) (1.2-3.4) K/uL [facility] # (Auto) (0.11-0.59) K/uL Eos # (Auto) (0-0.5) K/uL Baso # (Auto) (0-0.2) K/uL Absolute Nucleated RBC (0-0) K/uL Nucleated RBC % (auto) % Sodium (136-145) mmol/L Potassium 3.8 (3.5-5.1) mmol/L Chloride (98-107) mmol/L Carbon Dioxide (21-32) mmol/L Anion Gap (3-11) BUN (7-18) mg/dl Creatinine (0.6-1.2) mg/dl Est Cr Clr Drug Dosing ml/min Est GFR ( Amer) Est GFR (Non-Af Amer) BUN/Creatinine Ratio (10-20) Glucose (70-99) mg/dl Calcium (8.5-10.1) mg/dl Phosphorus 3.4 (2.5-4.9) mg/dl Magnesium 1.7 L (1.8-2.4) mg/dl Total Bilirubin (0.2-1) mg/dl AST 31 (15-37) U/L ALT (12-78) U/L Alkaline Phosphatase (45-117) U/L Troponin I (0-0.045) ng/ml Total Protein (6.4-8.2) gm/dl Albumin (3.4-5.0) gm/dl Globulin (2.5-4.0) gm/dl Albumin/Globulin Ratio (0.9-2) Lipase (73-393) U/L TSH (0.300-4.500) uIu/ml Lyme Disease IgG Ab (Negative) Lyme Disease IgM Ab (Negative) Imaging Data Attestation: I personally reviewed and interpreted this imaging study as follows: My Impression: Radiology results as stated below per my review and the radiologist's interpretation: XR abdomen 2 No obvious findings in chest, normal bowel gas pattern, no obvious free air. ECG Data Attestation: I personally reviewed and interpreted this ECG as follows: Indication: chest pain Rate (beats per minute): 93 Rhythm: normal sinus Findings: + other (unifocal pvc, bigeminy pattern, QTC 524 ) and + prolonged QT Blood Pressure Blood Pressure Findings: Normal blood pressure Blood Pressure Disposition: did not require urgent referral MDM Narrative The patient is a 54 year old female who presents to the Emergency Room with complaints of intermittent chest pain. The patient has episodes of sudden onset of epigastric discomfort that radiates up into her chest and through to her back. She begins to feel anxious and has episodes of palpitations that are also associated with dizziness and nausea. The patient had multiple episodes of this here in the emergency department while she was on the telemetry monitor. After developing the above symptoms, the patient would develop unifocal PVCs and prolonged episodes of bigeminy. Once the above symptoms would start to resolve, she will return to normal sinus rhythm. The patient is extremely symptomatic with these episodes. She was given antiemetics and Ativan to help with the symptoms. Obstruction series shows no obvious signs of bowel obstruction or pulmonary pathology. The patient is a diabetic and has a significant family history of heart disease. The patient has not undergone cardiac catheterization or other stress testing in a long time. I felt she would require additional wor k-up. I discussed the case with the [facility] Hospitalist and they will evaluate for further management. Impression & Plan Bigeminy, Epigastric abdominal pain, Substernal chest pain Discharge Plan Visit Data *Final* Discharge Date/Time: 07/17/19 03:58 Chief Complaint: Arrhythmia/Palpitations Stated Complaint: HEART PULP, CHEST TIGHTNESS ED Provider: Gloria Gunn Discharge Problem: Bigeminy, Epigastric abdominal pain, Substernal chest pain Patient Disposition: Admitted As Inpatient Discharge Instructions Interventions: ED Discharge Assessment Last Done: 07/17/19 03:58 The scribe's documentation has been prepared under my direction and personally reviewed by me in its entirety. I confirm that the note above accurately reflects all work, treatment, procedures, and medical decision making performed by me.
[2019-07-17] MEDS ORDERED: INFLUENZA VIRUS QUAD VACCINE 0.5 ML SYR IM ONE (08:00)
[2019-07-17] MEDS ORDERED: INFLUENZA ADMINISTRATION CHARGE ONE (08:00)
[2019-07-17 08:28] LABS: Estimated Average Glucose 151 mg/dl; Hemoglobin A1C 6.9 % (4.5-5.6)
--- NOTE | 2019-07-17 08:48 | XRay Report ---
PA CHEST RADIOGRAPH AND UPRIGHT AND SUPINE AP RADIOGRAPHS OF THE ABDOMEN CLINICAL HISTORY: epigastric pain COMPARISON STUDY: Chest radiograph December 09, 2018. CT of the abdomen and pelvis April 06, 2019. FINDINGS: No pneumothorax or pleural effusion is noted. There is no consolidation or evidence for pu lmonary edema. Cardiomediastinal silhouette is unremarkable. There is no free air. The bowel gas star coral is normal. IMPRESSION: 1. No free air or evidence of bowel obstruction. 2. No acute cardiopulmonary findings. Electronically signed by: Ok Perez M.D. 07/17/2019 8:47 AM
[2019-07-17] MEDS: clonazePAM 1 MG TAB PO SCH ×2 (08:52→14:05)
[2019-07-17] MEDS: METOPROLOL TARTRATE 50 MG TAB PO SCH ×2 (08:52→21:12)
[2019-07-17] MEDS: VENLAFAXINE HCL XR 37.5 MG CAPXR PO SCH (08:52)
[2019-07-17] MEDS: MAGNESIUM OXIDE 400 MG TAB PO SCH ×2 (08:52→21:11)
[2019-07-17] MEDS: LORATADINE 10 MG TAB PO SCH (08:52)
[2019-07-17] MEDS: INSULIN ASPART 100 UNITS/ML 3 ML PEN SC SCH ×4 (08:53→21:09)
[2019-07-17] MEDS: INSULIN GLARGINE SOLOSTAR 100 UNITS/ML 3 ML PEN SC SCH ×2 (08:55→21:09)
[2019-07-17] MEDS ORDERED: MAGNESIUM SULFATE / D5W 1 GM/100 ML BAG IV ONE (11:30)
--- NOTE | 2019-07-17 11:44 | Gastrointestinal Consultation ---
Date of Consultation July 17, 2019 Assessment & Plan (1) Nausea: Her presentation with the spells sound that her potential systemic issue that she is undergoing is causing her nausea. Certainly can obviously have nausea in the setting of known gastroparesis and heartburn for that matter. I think at this time I would exclude any cardiac arrhythmias, potentially given her anxiety as well as repetition of this metabolic issue may be at play, and if things such as a pheochromocytoma, hyperthyroid has not been ruled out and that should be considered pending normal cardiology evaluation. She did have imaging that ruled out obstruction. Will defer to cardiology, primary as well as pharmacy for use of anti-medics, essentially all the antiemetics can cause some QT prolongation, and certainly if they are going to be utilized she should remain on telemetry as she is. Will defer to Dr. Wallace when he returns on Friday and cardiology work-up if EGD should be pursued during this hospitalization. Advance diet as tolerated to maximum of a gastro-paretic diet. Daily omeprazole. Thank you for the consultation and call with any questions or concerns. History of Present Illness Reason for Consultation: Bloating and nausea Attending Physician: Delphine Bolivar MD History of Present Illness This is a 54-year-old female who normally follows with Dr. Wallace who has been given a diagnosis of GERD with associated hiatal hernia, gastroparesis, who presents with "I am having my every other day heart attack ". She has multiple medical problems, notably HTN, HLP, DM, GERD, Hypothyroid, QT prolongation and Anxiety presenting with symptomatic palpitations described as her heart racing, feelings of substernal chest pressure with radiation across her chest, then associated nausea. She states that she wakes up with a fall log she cannot clearly think, this is been going on for quite some time. She reports having episodes of palpitations fairly consistently for the last year. She noted an increase in frequency and duration of palpitations since July 02. She admits to associated exertional SOB on occasion. No personal history of CAD and most stress testing would have occurred per her in 2016 and normally follows with Dr. Stout. She has longstanding history of prolonged QT interval. No history of CHF. She follows with Cardiology and was to have a Holter monitor for diagnosis of her palpitations. She has been able to tolerate a diet, she was able to eat all day long yesterday, has not attempted to eat anything today, she currently is not nauseated as we are discussing her symptoms. She states that her GERD is under good control as long as she takes her daily omeprazole. Is having no diarrhea but generally has constipation, she states that the only thing in the way of her chronic symptoms that have been going on independent of these palpitations and "attacks" is the characteristic feeling of fullness with small amounts of food. She has not had an EGD for quite some time per the patient, and has no alarm symptoms such as dysphagia, weight loss. Allergies Allergy/AdvReac Type Severity Reaction Status Date / Time homatropine Allergy Severe ANNAPHYLACTIC Verified 07/17/19 00:30 SHOCK hydrocodone Allergy Severe ANNAPHYLACTIC Verified 07/17/19 00:30 SHOCK erythromycin base Allergy Intermediate RASH Verified 07/17/19 00:30 Sulfa (Sulfonamide Allergy Intermediate RASH Verified 07/17/19 00:30 Antibiotics) methylprednisolone Allergy Mild RASH Verified 07/17/19 00:30 ondansetron Allergy Mild Cardiac Verified 07/17/19 00:30 symptoms hydromorphone AdvReac Intermediate confusion Verified 07/17/19 00:30 Home Medications Home Medications Medication Instructions Recorded Confirmed Type lisinopril 10 mg PO HS #0 11/12/14 07/17/19 History metoprolol tartrate [Lopressor] 25 mg PO BID #0 tab 02/12/16 07/17/19 History hydrochlorothiazide 25 mg PO DAILY PRN #0 07/29/16 07/17/19 History loratadine [Claritin] 10 mg PO QAM #0 07/29/16 07/17/19 History omeprazole 40 mg PO HS #0 07/29/16 07/17/19 History ferrous sulfate 325 mg PO HS #0 08/09/16 07/17/19 History cholecalciferol (vitamin D3) 2,000 unit PO QAM #0 09/01/17 07/17/19 History levothyroxine 112 mcg PO QAM #0 09/01/17 07/17/19 History Linzess 145 mcg PO QAM #0 12/11/17 07/17/19 History Basaglar KwikPen U-100 Insulin 24 unit SUBCUT HS #0 03/26/18 07/17/19 History insulin lispro [Admelog U-100 1 sliding scale dose SUBCUT 04/06/19 07/17/19 History Insulin lispro] DIRECTED magnesium oxide 400 mg PO BID 04/06/19 07/17/19 History clonazepam 1 mg PO TID 05/30/19 07/17/19 History simvastatin 40 mg PO HS 05/30/19 07/17/19 History venlafaxine [Effexor XR] 37.5 mg PO DAILY 07/17/19 07/17/19 History Patient History Medical History Acute abdominal pain Dyslipidemia (Chronic) Hypothyroidism (Chronic) GERD (gastroesophageal reflux disease) (Chronic) Hypertension (Chronic) Diabetes (Chronic) Lumbar radiculopathy (Chronic) Panic disorder with agoraphobia (Chronic) PTSD (post-traumatic stress disorder) (Chronic) Gastroparesis (Chronic) Prolonged QT interval Surgical History S/P appendectomy (Acute) History of delivery Family History Other Heart disease Social History Preferred Language: Slovak Communication Ability: Effective Executive Office Manager Required: No Beliefs That Will Affect Care: Gnosticist Gnosticist Beliefs: Baptist Current Living Situation: Family Feels Safe at Home: Yes Smoking Status: Never smoker Hx Alcohol Use: Yes Alcohol type: wine Hx Substance Use: No Review of Systems Review of Systems: All systems reviewed & are unremarkable except as noted in HPI & below Physical Exam Physical Exam: Tangential during interview, very pressured speech Heart is regular Lungs are clear Abdomen is normal active soft nontender nondistended Cranial nerves II through XII are intact No peripheral edema Skin is normal Results & Data Vital Signs (Past 12 Hours) Vital Signs Temp Pulse Pulse Resp BP BP BP 07/17/19 09:00 73 07/17/19 07:49 36.5 C 74 18 135/83 07/17/19 05:23 76 07/17/19 04:46 36.7 C 82 18 132/74 07/17/19 03:49 79 18 139/110 H 07/17/19 02:55 86 24 131/59 L 07/17/19 02:19 86 20 122/72 07/17/19 00:58 84 22 132/60 07/16/19 23:45 86 25 H 140/75 07/16/19 23:39 36.7 C 102 H 20 158/83 H Pulse Ox 07/17/19 09:00 07/17/19 07:49 96 07/17/19 05:23 07/17/19 04:46 96 07/17/19 03:49 95 07/17/19 02:55 97 07/17/19 02:19 97 07/17/19 00:58 97 07/16/19 23:45 97 07/16/19 23:39 98
[2019-07-17] MEDS: ACETAMINOPHEN 325 MG TAB PO PRN (12:18)
--- NOTE | 2019-07-17 12:19 | Ultrasound Report ---
US gallbladder CLINICAL HISTORY: upper abdominal pain with radiation to back COMPARISON STUDY: CT of the abdomen and pelvis April 06, 2019. Right upper quadrant ultrasound January 04, 2016. FINDINGS: Hepatic echogenicity is significantly increased. A 2.2 cm hypoechoic segment 4/5 hepatic le jaquan corresponds to a hemangioma on prior contrast enhanced CT. There is no biliary ductal dilatation . The common bile duct measures 6 mm in caliber. No gallstones are identified. There is no gallbladde r wall thickening. No sonographic Rodriguez sign was elicited. No right hydronephrosis is present. The p ancreas body is slightly heterogeneous. The head and tail are obscured. IMPRESSION: 1. No gallstones or biliary ductal dilatation. 2. Moderate to marked fatty infiltration of the liver. 3. Heterogeneity of the pancreas. This is probably artifactual however could be correlated with lipas e levels to exclude acute pancreatitis. Electronically signed by: Ok Perez M.D. 07/17/2019 12:18 PM
--- NOTE | 2019-07-17 12:46 | Hospitalist Progress Note ---
Date of Service July 17, 2019 Assessment & Plan (1) Intermittent palpitations: * Patient with symptomatic palpitations, increasing in frequency and severity over the last 2 weeks. Witnessed bigeminy on monitor by ER physician during symptomatic episode. Patient with cardiac risk factors of HTN, HLP, DM, family history of premature CAD. Presently afebrile, HD stable. Ectopy noted on exam with PACs, PVCs on monitor * Obs Medical floor with telemetry monitoring * Last stress testing 02/04/16- without WMA, EF 55-60%, mild LVH * ECHO pending * Cardiology consult- appreciate input-- patient to have holter monitor friday with Dr. Stout * Continue metoprolol 25mg BID * Avoid QT prolonging agents - EKG with QTC 524ms today * U/S RUQ with mod/marked fatty liver, heterogeneity of pancreas. Lipase 209- will repeat lipase * Mag 1.7- already on oral replacement as outpatient- will give 1gm IV, repeat mag in AM * TSH 2.32 * GI Consult- appreciate input- possible EGD on Friday with Dr Wallace if inpatient, if not can be done as an outpatient * Patient with history of hiatal hernia- was supposed to have repaired, but was supposed to strengthen abdominal muscles prior to surgery--never followed through -- may need to consider barium swallow or CT chest moving forward --? sliding hiatal hernia causing intermittent pain>? * Per endocrinology notes, patient with elevated cortisol level with normal 24 hour cortisol. Patient to undergo saliva testing, but has not completed due conflict with directions to do during a day without increased stress * *Also, patient with medical marijuana - has been on tincture for past two years - ??cyclic vomiting contributing?? -- to have lock-box from storeroom/se curity setup (2) Epigastric abdominal pain: * Patient reports epigastric discomfort, bloating and fullness. ?gastroparesis, hiatal hernia, constipation * Continue PPI * Reglan 5mg IV q 8 hours as needed for abdominal fullness/pain--> will increase to 10mg IV Q8 * LFTs wnl, however fatty liver on US- would avoid tylenol (3) Dyslipidemia: * Chronic * Continue Simvastatin 40mg po qHS (4) Hypothyroidism: * Chronic. TSH=2.32 * Continue Synthroid 112 mcg po daily (5) GERD (gastroesophageal reflux disease): * Chronic. Increased pain as above. No melena/hematochezia * Continue PPI * Maalox PRN * Avoid Zofran d/p prolonged QT (6) Hypertension: * Blood pressure stable - 135/83 this AM * Continue Lisinopril 10mg po qHS * Continue Metoprolol 25mg po BID * Continue to monitor (7) Gastroparesis: * Chronic. Typically managed with careful diet. Patient feels that her gastroparesis may be causing some of her abdominal discomfort. She is unable to tolerate Zofran secondary to prolonged QT interval. She is typically able to tolerate Reglan. * Reglan * Monitor QT interval (8) Panic disorder with agoraphobia: * Chronic. Patient feels that her symptoms are fairly well controlled at present to admitting hospitalist * Continue Effexor 37.5mg po daily -- may be contributing to prolonged QT --> per previous inpatient note, patient was to have effexor dosage discussed with PCP * Clonazepam 1mg po TID changed to 0.5mg TID per PDMP records (9) Chest pain: * Patient with occasional chest discomfort, atypical. Does not seem to be exertional in nature. She has history of HTN, HLP, DM and FH of premature CAD. Negative stress test in 2016 * Cardiology consultation appreciated * Consider outpatient stress testing * Continue home medications as above (10) Diabetes: * Blood sugar presently 160. Last Hgb A1c=9.5 in August 2017 * A1c today - 6.9 * Lantus 10 u BID * ISS * Continue to monitor (11) DVT prophylaxis: SCDs Disposition-remain on medical floor with telemetry for further observation Supervising Physician Co-Signing Physician Notes DARLENE Supervision Note: I personally saw and examined the patient. I verified all maradiaga points and agree with DARLENE Hamilton with the following exceptions and/or additions: Patient has had more frequent episodes of severe chest pressure and squeezing with heart palpitations it radiates through to her back and into the epigastric region. They were coming about once a week and are now coming every other day for the last 3 weeks. She has some dark-colored stools but also takes iron pills. She occasionally has diarrhea with her episodes. Also reports a lot of indigestion. Wonders if this could do with her sliding hiatal hernia she was told that needed to be repaired 4 years ago. She had some trigeminy overnight but since then has had a much reduced amount of ectopy during today and her symptoms are not as bad today. Denies caffeine use She reports she is gained 56 pounds in the last year and is currently being worked up by endocrinology for Thomas's Vitals reviewed Telemetry reviewed Gen: AAOx3, NAD, obese HEENT: Anicteric sclerae, EOMI, leiva facies CV: RRR no mgr nl S1S2 Pulm: CTAB no wcr Abd: +BS soft mild tenderness in the epigastric and left upper quadrant regions without guarding or rebound, ND no masses or hernias Ext: No edema, 2+ DP pulses Skin: No rashes, warm/dry Neuro: Full strength throughout 54-year-old female here with palpitations, frequent ventricular ectopy, and epigastric and chest pain -Suspect GI source -Consider barium swallow and CT of the chest to further evaluate for hiatal hernia -May also need EGD -If stable for discharge tomorrow symptomatically, could go home and complete work-up as an outpatient if can tolerate p.o. -Otherwise, should remain hospitalized until she can have GI work-up on Friday Subjective Patient evaluated this morning at bedside. She states every other day she feels like she is having a heart attack and was supposed to be set up for a holter monitor with Dr. Stout on friday, however her associated abdominal pain and and nausea had become so severe that she couldn't take it anymore. She states she has had episodes of vomit, with the most recent yesterday, without melena or hematochezia. She describes the pain as a band like sensation across her upper abdomen with radiation to bilateral flanks and back. Occasionally she states she has left chest pressure and left forearm pain. She recently had an appendectomy in March 2019, but denies previous history of biliary colic or gallstones. She does state that she has both a strong family history for MIs as well as gallstones. She denies any correlation between symptoms and specific foods. When asked about diet prior to these episodes, she states she had a turkey sandwich for lunch, followed by two slices of pizza and a half of a dinner roll later. She denies any dysuria, fever, chills, shortness of breath, diarrhea, constipation at this time. She was supposed to have surgery for hiatal hernia but was to strengthen abdominal muscles prior to surgery. She has not followed up since that time. She has also been seen recently by endocrinology who tested cortisol level and was supposed to do a saliva test. Physical Exam Constitutional: WD/WN, vitals as above + overweight; no acute distress Eyes: PERRL, conjunctivae normal, anicteric sclerae ENMT: external ear and nose normal, oropharynx normal Neck: trachea midline, no thyromegaly Respiratory: normal respiratory effort, lungs clear to auscultation Cardiovascular: RRR, no murmur, no edema Gastrointestinal (Abdomen): normal bowel sounds, soft, nontender, no hepatosplenomegaly non distended Skin: no rashes, warm and dry Neurologic: PERRL, EOMI, accommodation nl, no face palsy, no dysarthria Psychiatric: Orientation: alert and oriented x 3 Affect: + anxious affect Results & Data Vital Signs (Past 12 Hours) Vital Signs Temp Pulse Pulse Resp BP BP Pulse Ox 07/17/19 11:54 36.7 C 74 20 113/69 90 07/17/19 09:00 73 07/17/19 07:49 36.5 C 74 18 135/83 96 07/17/19 05:23 76 07/17/19 04:46 36.7 C 82 18 132/74 96 07/17/19 03:49 79 18 139/110 H 95 07/17/19 02:55 86 24 131/59 L 97 07/17/19 02:19 86 20 122/72 97 07/17/19 00:58 84 22 132/60 97 Laboratory Results 07/17/19 07/17/19 07/17/19 Range/Units 11:36 07:29 06:37 WBC (4.8-10.8) K/uL RBC (4.2-5.4) M/uL Hgb (12.0-16.0) g/dL Hct (37-47) % MCV (80-100) fL MCH (25-34) pg MCHC (32-36) g/dL RDW Std Deviation (36.4-46.3) fL RDW Coeff of [place]ma (11.5-14.5) % Plt Count (130-400) K/uL MPV (7.4-10.4) fL Immature Gran % (Auto) % Neut % (Auto) % Lymph % (Auto) % Harnett % (Auto) % Eos % (Auto) % Baso % (Auto) % Immature Gran # (Auto) (0.00-0.02) K/uL Neut # (Auto) (1.4-6.5) K/uL Lymph # (Auto) (1.2-3.4) K/uL Harnett # (Auto) (0.11-0.59) K/uL Eos # (Auto) (0-0.5) K/uL Baso # (Auto) (0-0.2) K/uL Absolute Nucleated RBC (0-0) K/uL Nucleated RBC % (auto) % Sodium (136-145) mmol/L Potassium (3.5-5.1) mmol/L Chloride (98-107) mmol/L Carbon Dioxide (21-32) mmol/L Anion Gap (3-11) BUN (7-18) mg/dl Creatinine (0.6-1.2) mg/dl Est Cr Clr Drug Dosing ml/min Est GFR ( Amer) Est GFR (Non-Af Amer) BUN/Creatinine Ratio (10-20) Glucose (70-99) mg/dl POC Glucose 130 H 202 H (70-99) Estimat Average Glucose 151 mg/dl Hemoglobin A1c 6.9 H (4.5-5.6) % Calcium (8.5-10.1) mg/dl Phosphorus (2.5-4.9) mg/dl Magnesium (1.8-2.4) mg/dl Total Bilirubin (0.2-1) mg/dl AST (15-37) U/L ALT (12-78) U/L Alkaline Phosphatase (45-117) U/L Troponin I (0-0.045) ng/ml Total Protein (6.4-8.2) gm/dl Albumin (3.4-5.0) gm/dl Globulin (2.5-4.0) gm/dl Albumin/Globulin Ratio (0.9-2) Lipase (73-393) U/L TSH (0.300-4.500) uIu/ml Lyme Disease IgG Ab (Negative) Lyme Disease IgM Ab (Negative) 07/17/19 07/16/19 07/16/19 Range/Units 01:30 23:48 23:48 WBC (4.8-10.8) K/uL RBC (4.2-5.4) M/uL Hgb (12.0-16.0) g/dL Hct (37-47) % MCV (80-100) fL MCH (25-34) pg MCHC (32-36) g/dL RDW Std Deviation (36.4-46.3) fL RDW Coeff of [place]ma (11.5-14.5) % Plt Count (130-400) K/uL MPV (7.4-10.4) fL Immature Gran % (Auto) % Neut % (Auto) % Lymph % (Auto) % [place]ett % (Auto) % Eos % (Auto) % Baso % (Auto) % Immature Gran # (Auto) (0.00-0.02) K/uL Neut # (Auto) (1.4-6.5) K/uL Lymph # (Auto) (1.2-3.4) K/uL Harnett # (Auto) (0.11-0.59) K/uL Eos # (Auto) (0-0.5) K/uL Baso # (Auto) (0-0.2) K/uL Absolute Nucleated RBC (0-0) K/uL Nucleated RBC % (auto) % Sodium 140 (136-145) mmol/L Potassium 3.8 (3.5-5.1) mmol/L Chloride 104 (98-107) mmol/L Carbon Dioxide 26 (21-32) mmol/L Anion Gap 10.0 (3-11) BUN 14 (7-18) mg/dl Creatinine 1.08 (0.6-1.2) mg/dl Est Cr Clr Drug Dosing 68.5 ml/min Est GFR ( Amer) 67.9 Est GFR (Non-Af Amer) 58.6 BUN/Creatinine Ratio 13.2 (10-20) Glucose 160 H (70-99) mg/dl POC Glucose (70-99) Estimat Average Glucose mg/dl Hemoglobin A1c (4.5-5.6) % Calcium 8.6 (8.5-10.1) mg/dl Phosphorus 3.4 (2.5-4.9) mg/dl Magnesium 1.7 L (1.8-2.4) mg/dl Total Bilirubin 0.6 (0.2-1) mg/dl AST 31 (15-37) U/L ALT 39 (12-78) U/L Alkaline Phosphatase 90 (45-117) U/L Troponin I < 0.015 (0-0.045) ng/ml Total Protein 7.9 (6.4-8.2) gm/dl Albumin 3.8 (3.4-5.0) gm/dl Globulin 4.1 H (2.5-4.0) gm/dl Albumin/Globulin Ratio 0.9 (0.9-2) Lipase 209 (73-393) U/L TSH 2.320 (0.300-4.500) uIu/ml Lyme Disease IgG Ab Negative (Negative) Lyme Disease IgM Ab Negative (Negative) 07/16/19 Range/Units 23:48 WBC 9.43 (4.8-10.8) K/uL RBC 4.48 (4.2-5.4) M/uL Hgb 14.6 (12.0-16.0) g/dL Hct 39.9 (37-47) % MCV 89.1 (80-100) fL MCH 32.6 (25-34) pg MCHC 36.6 H (32-36) g/dL RDW Std Deviation 43.1 (36.4-46.3) fL RDW Coeff of [place] 13.2 (11.5-14.5) % Plt Count 271 (130-400) K/uL MPV 10.8 H (7.4-10.4) fL Immature Gran % (Auto) 0.2 % Neut % (Auto) 46.6 % Lymph % (Auto) 45.3 % Harnett % (Auto) 6.7 % Eos % (Auto) 1.0 % Baso % (Auto) 0.2 % Immature Gran # (Auto) 0.02 (0.00-0.02) K/uL Neut # (Auto) 4.40 (1.4-6.5) K/uL Lymph # (Auto) 4.27 H (1.2-3.4) K/uL [place]ett # (Auto) 0.63 H (0.11-0.59) K/uL Eos # (Auto) 0.09 (0-0.5) K/uL Baso # (Auto) 0.02 (0-0.2) K/uL Absolute Nucleated RBC 0.10 H (0-0) K/uL Nucleated RBC % (auto) 1.1 % Sodium (136-145) mmol/L Potassium (3.5-5.1) mmol/L Chloride (98-107) mmol/L Carbon Dioxide (21-32) mmol/L Anion Gap (3-11) BUN (7-18) mg/dl Creatinine (0.6-1.2) mg/dl Est Cr Clr Drug Dosing ml/min Est GFR ( Amer) Est GFR (Non-Af Amer) BUN/Creatinine Ratio (10-20) Glucose (70-99) mg/dl POC Glucose (70-99) Estimat Average Glucose mg/dl Hemoglobin A1c (4.5-5.6) % Calcium (8.5-10.1) mg/dl Phosphorus (2.5-4.9) mg/dl Magnesium (1.8-2.4) mg/dl Total Bilirubin (0.2-1) mg/dl AST (15-37) U/L ALT (12-78) U/L Alkaline Phosphatase (45-117) U/L Troponin I (0-0.045) ng/ml Total Protein (6.4-8.2) gm/dl Albumin (3.4-5.0) gm/dl Globulin (2.5-4.0) gm/dl Albumin/Globulin Ratio (0.9-2) Lipase (73-393) U/L TSH (0.300-4.500) uIu/ml Lyme Disease IgG Ab (Negative) Lyme Disease IgM Ab (Negative) PG Care Time/CCT Total # of Minutes Spent Total Time Spent with Patient: Total time spent is greater than 50% in coordination of care (as documented) at patient's floor/unit and/or counseling patient: (1) Diabetes Diabetes mellitus complication status: without complication Diabetes mellitus assisted insulin use: with assisted use Diabetes mellitus type: type 2 Qualified Code(s): E11.9 - Type 2 diabetes mellitus without complications; Z79.4 - snf (current) use of insulin (2) Hypothyroidism Hypothyroidism type: unspecified Qualified Code(s): E03.9 - Hypothyroidism, unspecified (3) GERD (gastroesophageal reflux disease) Esophagitis presence: esophagitis presence not specified Qualified Code(s): K21.9 - Gastro-esophageal reflux disease without esophagitis (4) Chest pain Chest pain type: unspecified Qualified Code(s): R07.9 - Chest pain, unspecified (5) Hypertension Hypertension type: essential hypertension Qualified Code(s): I10 - Essential (primary) hypertension
--- NOTE | 2019-07-17 14:43 | Cardiology Consultation ---
Date of Consultation July 17, 2019 Assessment & Plan (1) Frequent PVCs: (2) Intermittent palpitations: (3) Abdominal pain: ASSESSMENT/PLAN: 1. Palpitations: According to records while she was experiencing palpitations PVCs were noted on telemetry in a bigeminal pattern. Can continue telemetry to see if any arrhythmia is noted. 2. PVCs: She has frequent PVCs noted on ECG. She was reassured. It is not likely that the PVCs are responsible for her abdominal pain, nausea, and extreme dizziness/lightheadedness with headache. She is already on beta-perico as an outpatient. Can continue with home dose of beta-perico. Continue to monitor. She has not felt palpitations today however continues to have PVCs at times on telemetry. Replete electrolytes. 3. Abdominal pain/nausea: Etiology uncertain but not likely due to her PVCs. Recommend evaluation by primary service. This was discussed with primary service, Maria Hamilton. 4. Prolonged QT: Avoid medications that can prolong QT. 5. Disposition: Please call for any further questions or concerns. Follow up with primary shop tech, Dr. Stout. Plan of care discussed with primary service. Thank you for allowing me to participate in the care of your patient. Please call for any other questions or concerns. Sincerely, Osbaldo Bowles M.D. (4) Prolonged QT interval: History of Present Illness Reason for Consultation: Palpitations Requesting Physician: Dr. Hanna Attending Physician: Delphine Bolivar MD History of Present Illness Ms. Marcum is a 54-year-old female with a history significant for insulin- dependent diabetes, hypertension, dyslipidemia, gastroparesis, prolonged QT, and hypothyroidism. Her primary shop tech is Dr. Stout of [facility]. She states that she has a 30 day event monitor pending in 2 days through her cardiology office but her symptoms were worsening so she came to the emergency department for evaluation. She describes a pulsating palpitation along the inferior portion of her ribcage/upper abdomen that radiates to the back. The symptoms occur with extreme nausea, with associated headache, dizziness, lightheadedness, and states that her symptoms are so severe that she cannot function when she experiences them. She has been experiencing them for quite sometime however for the past 3 weeks they have been much more frequent and severe. Symptoms are now occurring on an [id number] basis like clock- work. Symptoms occur at rest and with exertion without specific trigger. There is no alleviating factor that she has been able to find. She states that her abdomen will swell up at times and she also has intermittent low-grade fever. She states that she has intermittent swelling of her lower extremities. She denies shortness of breath. She denies angina, chest pain, hematochezia, hematuria but does admit to dark t arry stool intermittently. She denies syncope. Despite not having any further palpitations, she continues to have nausea. While in the emergency department, it is reported that while she was experi encing palpitations, she was in sinus rhythm with PVCs in a bigeminal fashion. Review of systems: As above. Review of systems otherwise negative/unremarkable. Family history: Family history of heart disease reported. Social history: She denies ever smoking. Occasional alcohol. No drugs. She lives at home with 2 children and her . She has 5 children total. She is unaccompanied. Allergies Allergy/AdvReac Type Severity Reaction Status Date / Time homatropine Allergy Severe ANNAPHYLACTIC Verified 07/17/19 00:30 SHOCK hydrocodone Allergy Severe ANNAPHYLACTIC Verified 07/17/19 00:30 SHOCK erythromycin base Allergy Intermediate RASH Verified 07/17/19 00:30 Sulfa (Sulfonamide Allergy Intermediate RASH Verified 07/17/19 00:30 Antibiotics) methylprednisolone Allergy Mild RASH Verified 07/17/19 00:30 ondansetron Allergy Mild Cardiac Verified 07/17/19 00:30 symptoms hydromorphone AdvReac Intermediate confusion Verified 07/17/19 00:30 Home Medications Home Medications Medication Instructions Recorded Confirmed Type lisinopril 10 mg PO HS #0 11/12/14 07/17/19 History metoprolol tartrate [Lopressor] 25 mg PO BID #0 tab 02/12/16 07/17/19 History hydrochlorothiazide 25 mg PO DAILY PRN #0 07/29/16 07/17/19 History loratadine [Claritin] 10 mg PO QAM #0 07/29/16 07/17/19 History omeprazole 40 mg PO HS #0 07/29/16 07/17/19 History ferrous sulfate 325 mg PO HS #0 08/09/16 07/17/19 History cholecalciferol (vitamin D3) 2,000 unit PO QAM #0 09/01/17 07/17/19 History levothyroxine 112 mcg PO QAM #0 09/01/17 07/17/19 History Linzess 145 mcg PO QAM #0 12/11/17 07/17/19 History Basaglar KwikPen U-100 Insulin 24 unit SUBCUT HS #0 03/26/18 07/17/19 History insulin lispro [Admelog U-100 1 sliding scale dose SUBCUT 04/06/19 07/17/19 History Insulin lispro] DIRECTED magnesium oxide 400 mg PO BID 04/06/19 07/17/19 History clonazepam 1 mg PO TID 05/30/19 07/17/19 History simvastatin 40 mg PO HS 05/30/19 07/17/19 History venlafaxine [Effexor XR] 37.5 mg PO DAILY 07/17/19 07/17/19 History Patient History Medical History Acute abdominal pain Dyslipidemia (Chronic) Hypothyroidism (Chronic) GERD (gastroesophageal reflux disease) (Chronic) Hypertension (Chronic) Diabetes (Chronic) Lumbar radiculopathy (Chronic) Panic disorder with agoraphobia (Chronic) PTSD (post-traumatic stress disorder) (Chronic) Gastroparesis (Chronic) Prolonged QT interval Surgical History S/P appendectomy (Acute) History of delivery Family History Other Heart disease Social History Preferred Language: Sinhala Communication Ability: Effective Aerial Gunner Required: No Beliefs That Will Affect Care: Gnosticism Gnosticism Beliefs: Pentecostal Current Living Situation: Family Feels Safe at Home: Yes Smoking Status: Never smoker Hx Alcohol Use: Yes Alcohol type: wine Hx Substance Use: No Physical Exam Physical Exam: Gen.: No acute distress. Alert and oriented. HEENT: Anicteric sclera. Neck: No JVD. No bruits. Normal carotid upstrokes bilaterally. Cardiac: PMI was nondisplaced. No ventricular heave. Regular. Normal S1-S2. No murmurs, rubs, or gallops. Pulmonary: Clear to auscultation bilaterally without wheezes, rales, or rhonchi. Abdomen: Soft, nondistended, with hypoactive bowel sounds. Tender in her upper quadrants, without rebound tenderness. No bruits noted. Extremities: 2+ radial pulses bilaterally. 2+ posterior tibialis pulses bilaterally. No edema or cyanosis. No palpable cords. Psychiatric: Affect appears appropriate. Results & Data Vital Signs (Past 12 Hours) Vital Signs Temp Pulse Pulse Resp BP BP Pulse Ox 07/17/19 11:54 36.7 C 74 20 113/69 90 07/17/19 09:00 73 07/17/19 07:49 36.5 C 74 18 135/83 96 07/17/19 05:23 76 07/17/19 04:46 36.7 C 82 18 132/74 96 07/17/19 03:49 79 18 139/110 H 95 07/17/19 02:55 86 24 131/59 L 97 Laboratory Results Laboratory Results - last 24 hr 07/16/19 07/16/19 07/16/19 23:48 23:48 23:48 WBC 9.43 RBC 4.48 Hgb 14.6 Hct 39.9 MCV 89.1 MCH 32.6 MCHC 36.6 H RDW Std Deviation 43.1 RDW Coeff of [place] 13.2 Plt Count 271 MPV 10.8 H Immature Gran % (Auto) 0.2 Neut % (Auto) 46.6 Lymph % (Auto) 45.3 [place] % (Auto) 6.7 Eos % (Auto) 1.0 Baso % (Auto) 0.2 Immature Gran # (Auto) 0.02 Neut # (Auto) 4.40 Lymph # (Auto) 4.27 H [place] # (Auto) 0.63 H Eos # (Auto) 0.09 Baso # (Auto) 0.02 Absolute Nucleated RBC 0.10 H Nucleated RBC % (auto) 1.1 Sodium 140 Potassium Chloride 104 Carbon Dioxide 26 Anion Gap 10.0 BUN 14 Creatinine 1.08 Est Cr Clr Drug Dosing 68.5 Est GFR ( Amer) 67.9 Est GFR (Non-Af Amer) 58.6 BUN/Creatinine Ratio 13.2 Glucose 160 H POC Glucose Estimat Average Glucose Hemoglobin A1c Calcium 8.6 Phosphorus Magnesium Total Bilirubin 0.6 AST ALT 39 Alkaline Phosphatase 90 Troponin I < 0.015 Total Protein 7.9 Albumin 3.8 Globulin 4.1 H Albumin/Globulin Ratio 0.9 Lipase 209 TSH 2.320 Lyme Disease IgG Ab Negative Lyme Disease IgM Ab Negative 07/17/19 07/17/19 07/17/19 01:30 06:37 06:42 WBC RBC Hgb Hct MCV MCH MCHC RDW Std Deviation RDW Coeff of [place] Plt Count MPV Immature Gran % (Auto) Neut % (Auto) Lymph % (Auto) [place] % (Auto) Eos % (Auto) Baso % (Auto) Immature Gran # (Auto) Neut # (Auto) Lymph # (Auto) [place] # (Auto) Eos # (Auto) Baso # (Auto) Absolute Nucleated RBC Nucleated RBC % (auto) Sodium Potassium 3.8 Chloride Carbon Dioxide Anion Gap BUN Creatinine Est Cr Clr Drug Dosing Est GFR ( Amer) Est GFR (Non-Af Amer) BUN/Creatinine Ratio Glucose POC Glucose Estimat Average Glucose 151 Hemoglobin A1c 6.9 H Calcium Phosphorus 3.4 Magnesium 1.7 L Total Bilirubin AST 31 ALT Alkaline Phosphatase Troponin I Total Protein Albumin Globulin Albumin/Globulin Ratio Lipase Pending TSH Lyme Disease IgG Ab Lyme Disease IgM Ab 07/17/19 07/17/19 07:29 11:36 WBC RBC Hgb Hct MCV MCH MCHC RDW Std Deviation RDW Coeff of [place] Plt Count MPV Immature Gran % (Auto) Neut % (Auto) Lymph % (Auto) [place] % (Auto) Eos % (Auto) Baso % (Auto) Immature Gran # (Auto) Neut # (Auto) Lymph # (Auto) [place] # (Auto) Eos # (Auto) Baso # (Auto) Absolute Nucleated RBC Nucleated RBC % (auto) Sodium Potassium Chloride Carbon Dioxide Anion Gap BUN Creatinine Est Cr Clr Drug Dosing Est GFR ( Amer) Est GFR (Non-Af Amer) BUN/Creatinine Ratio Glucose POC Glucose 202 H 130 H Estimat Average Glucose Hemoglobin A1c Calcium Phosphorus Magnesium Total Bilirubin AST ALT Alkaline Phosphatase Troponin I Total Protein Albumin Globulin Albumin/Globulin Ratio Lipase TSH Lyme Disease IgG Ab Lyme Disease IgM Ab Diagnostic Findings Telemetry personally reviewed: Sinus rhythm with PVCs. ECG personally reviewed: ECG 07/16/2019: Sinus rhythm with frequent PVCs in a bigeminal pattern. 93 bpm. Prolonged QT. Gallbladder ultrasound 07/17/2019: Moderate to marked fatty infiltration of liver. Heterogeneity of the pancreas. Chest/abdominal x-ray: No free air or evidence of bowel obstruction per Radiology. No acute cardiopulmonary findings. Medications Administered Current Inpatient Medications Acetaminophen (Tylenol) 650 mg PO Q4H PRN PRN Reason: pain/fever Stop: 08/16/19 04:21 Last Admin: 07/17/19 12:18 Dose: 650 mg Documented by: Bisacodyl (Dulcolax) 10 mg MI DAILY PRN PRN Reason: Constipation Stop: 08/16/19 04:21 Clonazepam (Klonopin) 1 mg PO TID [facility] Stop: 08/16/19 08:59 Last Admin: 07/17/19 14:05 Dose: 1 mg Documented by: Dextrose (Dextrose 50%) 25 - 50 ml IV UD PRN; Protocol PRN Reason: Hypoglycemia Protocol Stop: 08/16/19 04:21 Ferrous Sulfate (Feosol) 325 mg PO HS [facility] Stop: 08/16/19 20:59 Glucagon (Glucagen) 1 mg SQ UD PRN; Protocol PRN Reason: Hypoglycemia Protocol Stop: 08/16/19 04:21 Glucose (Glucose 40%) 15 - 30 gm PO UD PRN; Protocol PRN Reason: Hypoglycemia Protocol Stop: 08/16/19 04:21 Glucose (Dex4 Glucose) 4 - 8 tabs PO UD PRN; Protocol PRN Reason: Hypoglycemia Protocol Stop: 08/16/19 04:21 Insulin Aspart (Novolog Flexpen) 0 units SC ACHS [facility] Stop: 08/16/19 07:29 Last Admin: 07/17/19 12:52 Dose: 6 units Documented by: Insulin Glargine (Lantus Solostar Pen) 10 units SC BID [facility] Stop: 08/16/19 08:59 Last Admin: 07/17/19 08:55 Dose: 10 units Documented by: Levothyroxine Sodium (Synthroid) 112 mcg PO DAILYBB [facility] Stop: 08/16/19 06:29 Last Admin: 07/17/19 06:09 Dose: 112 mcg Documented by: Lisinopril (Zestril) 10 mg PO HS [facility] Stop: 08/16/19 20:59 Loratadine (Claritin) 10 mg PO QAM [facility] Stop: 08/16/19 08:59 Last Admin: 07/17/19 08:52 Dose: 10 mg Documented by: Magnesium Oxide (Mag-Ox) 400 mg PO BID [facility] Stop: 08/16/19 08:59 Last Admin: 07/17/19 08:52 Dose: 400 mg Documented by: Metoclopramide HCl (Reglan) 5 mg IV TID PRN PRN Reason: abdominal pain Stop: 08/16/19 04:21 Last Admin: 07/17/19 12:14 Dose: 5 mg Documented by: Metoprolol Tartrate (Lopressor) 25 mg PO BID [facility] Stop: 08/16/19 08:59 Last Admin: 07/17/19 08:52 Dose: 25 mg Documented by: Miscellaneous (Carbohydrates For Hypoglycemia) 15 - 30 gm PO UD PRN PRN Reason: Hypoglycemia Treatment Stop: 08/16/19 04:21 Miscellaneous (Order Awaiting Action) 1 ea N/A QS [facility] Stop: 08/16/19 04:59 Last Admin: 07/17/19 09:22 Dose: Not Given Documented by: Pantoprazole Sodium (Protonix) 40 mg PO HS [facility] Stop: 08/16/19 20:59 Simvastatin (Zocor) 40 mg PO HS [facility] Stop: 08/16/19 20:59 Venlafaxine HCl (Effexor Extended Release) 37.5 mg PO DAILY [facility] Stop: 08/16/19 08:59 Last Admin: 07/17/19 08:52 Dose: 37.5 mg Documented by: PG Care Time/CCT Total # of Minutes Spent Total Time Spent with Patient: Total time spent is greater than 50% in coordination of care (as documented) at patient's floor/unit and/or counseling patient: (1) Abdominal pain Abdominal location: generalized Qualified Code(s): R10.84 - Generalized abdominal pain
[2019-07-17] MEDS ORDERED: MEDICAL MARIJUANA PO PRN (16:45)
[2019-07-17] MEDS: METOCLOPRAMIDE HCL INJ 5 MG/ML 2 ML VIAL IV PRN (19:03)
[2019-07-17] MEDS: LISINOPRIL 10 MG TAB PO SCH (21:11)
[2019-07-17] MEDS: SIMVASTATIN 40 MG TAB PO SCH (21:11)
[2019-07-17] MEDS: PANTOprazole 40 MG TAB PO SCH (21:11)
[2019-07-17] MEDS: FERROUS SULFATE 325 MG TAB PO SCH (21:12)
[2019-07-17 21:58] LABS: Magnesium 2.5 mg/dl (1.8-2.4)
[2019-07-18] MEDS: LINZESS~ORDER AWAITING ACTION SCH ×3 (00:19→15:22)
[2019-07-18] MEDS: LEVOTHYROXINE SODIUM 112 MCG TABLET PO SCH (06:22)
[2019-07-18 06:45] LABS: Hematocrit (blood only) 36.8 % (37-47); Hemoglobin 12.6 g/dL (12.0-16.0); Mean Corpuscular Hemoglobin 30.6 pg (25-34); Mean Corpuscular Hgb Conc 34.2 g/dL (32-36); Mean Corpuscular Volume 89.3 fL (80-100); Mean Platelet Volume 9.9 fL (7.4-10.4); Platelet Count 213 K/uL (130-400); RDW Coefficient of Variation 13.1 % (11.5-14.5); RDW Standard Deviation 42.7 fL (36.4-46.3); Red Blood Count 4.12 M/uL (4.2-5.4); White Blood Count 5.97 K/uL (4.8-10.8)
[2019-07-18 07:12] LABS: Basophils # (auto) 0.02 K/uL (0-0.2); Basophils % (auto) 0.3 %; Eosinophils # (auto) 0.17 K/uL (0-0.5); Eosinophils % (auto) 2.8 %; Immature Granulocytes # (auto) 0.01 K/uL (0.00-0.02); Immature Granulocytes % (auto) 0.2 %; Lymphocytes # (auto) 2.99 K/uL (1.2-3.4); Lymphocytes % (auto) 50.1 %; Monocytes # (auto) 0.42 K/uL (0.11-0.59); Neutrophils # (auto) 2.36 K/uL (1.4-6.5); Neutrophils % (auto) 39.6 %
[2019-07-18 07:20] LABS: BUN Creatinine Ratio 13.8 (10-20); Creatinine Clr Calc Pharmacy 78.7 ml/min; Est GFR (African American) 78.3; Est GFR (Non-African American) 67.5
[2019-07-18] MEDS: clonazePAM 1 MG TAB PO SCH ×3 (07:32→20:56)
[2019-07-18] MEDS: METOPROLOL TARTRATE 50 MG TAB PO SCH ×2 (07:32→20:57)
[2019-07-18] MEDS: LORATADINE 10 MG TAB PO SCH (07:32)
[2019-07-18] MEDS: VENLAFAXINE HCL XR 37.5 MG CAPXR PO SCH (07:32)
--- NOTE | 2019-07-18 08:23 | Hospitalist Progress Note ---
Date of Service July 18, 2019 Assessment & Plan (1) Intermittent palpitations: * Patient with symptomatic palpitations, increasing in frequency and severity over the last 2 weeks. Witnessed bigeminy on monitor by ER physician during symptomatic episode. Patient with cardiac risk factors of HTN, HLP, DM, family history of premature CAD. Presently afebrile, HD stable. Ectopy noted on exam with PACs, PVCs on monitor * continue telemetry monitoring * Last stress testing 02/04/16- without WMA, EF 55-60%, mild LVH * ECHO here - normal LV systolic function. No WMA. Mild LVH. Trace mitral regurgitation * Cardiology consult- appreciate input--> does not think nausea and abdominal pain is caused by her PVCs-continues to have nausea/abd pain in absence of PVCs * Continue metoprolol 25mg BID * Avoid QT prolonging agents - EKG with QTC 524ms on ECG * Mag 1.7 on admission and replaced with IV Magnesium; already on oral replacement as outpatient--> now normalized * TSH 2.32 * Per endocrinology notes, patient with elevated cortisol level with normal 24 hour cortisol. Patient to undergo saliva testing, but has not completed due conflict with directions to do during a day without increased stress * Trop negative * Check Cortisol in AM - reported to be >1600 on outpatient notes, however was not able to be located. Patient was to undergo work-up for C[place]ings with Endocrinology- seen by Dr. Socorro Toribio * Seems to be related to anxiety (2) Epigastric abdominal pain: * Patient reports epigastric discomfort, bloating and fullness. ?gastroparesis, hiatal hernia, constipation * U/S RUQ with mod/marked fatty liver, heterogeneity of pancreas. Lipase 209 and then decreased after that * GI Consult- appreciate input- possible EGD on Friday with Dr Wallace if still having symptoms * Patient with history of hiatal hernia- was supposed to have repaired, but was supposed to strengthen abdominal muscles prior to surgery--never followed through--> CT chest negative --? sliding hiatal hernia causing intermittent pain>? * *Also, patient with medical marijuana - has been on tincture for past two years - ??cyclic vomiting contributing? --> will try topical capsaicin cream * CT/Abd Pelvis, CT Chest without evidence of acute process * Continue PPI * continue Reglan 10mg IV q 8 hours as needed for abdominal fullness/pain * Worsening fatty liver on US---> would benefit from metformin therapy, however was intolerant in the past * Phenergan 12.5mg PO prn * NPO after midnight for possible EGD with GI in AM with Dr. Wallace (3) Dyslipidemia: * Chronic * Continue Simvastatin 40mg po qHS although seems she was recently prescribed Crestor--> continue which ever statin she has at home * Lipid panel - cholesterol 230, HLD 38 * Elevated triglycerides at 478 * Needs improved glucose control to lower TGs (4) Hypothyroidism: * Chronic. Stable * TSH=2.32 * Continue Synthroid 112 mcg po daily -- patient scheduled six days a week, but will continue daily dosing. Patient states she "always feels better < 2.0" (5) GERD (gastroesophageal reflux disease): * Chronic. Increased pain as above. No melena/hematochezia * Continue PPI * Maalox PRN * Avoid Zofran d/t hx prolonged QT (6) Hypertension: * Blood pressures labile * Continue Lisinopril 10mg po qHS * Continue Metoprolol 25mg po BID * Continue to monitor (7) Gastroparesis: * Chronic. Typically managed with careful diet. Patient feels that her gastroparesis may be causing some of her abdominal discomfort. She is unable to tolerate Zofran secondary to prolonged QT interval. She is typically able to tolerate Reglan. * Reglan * Monitor QT interval * Per patient, improved abdominal pain with phenergan- will allow 12.5mg prn- continue to monitor (8) Panic disorder with agoraphobia: * Chronic. Patient feels that her symptoms are fairly well controlled at present to admitting hospitalist. Patient with longstanding history of anxiety as well as admissions to [facility]. * Continue Effexor 37.5mg po daily -- may be contributing to prolonged QT (most recent QTc on telemetry strip 466ms)--> per previous inpatient note, patient was to have effexor dosage discussed with PCP * continue Clonazepam 0.5mg TID per PDMP records (9) Chest pain: * Patient with occasional chest discomfort, atypical. Does not seem to be exertional in nature. She has history of HTN, HLP, DM and FH of premature CAD. Negative stress test in 2016 * Cardiology consultation appreciated * Consider outpatient stress testing * Continue home medications as above (10) Diabetes: * Blood sugar high here. Last Hgb A1c=9.5 in August 2017 * A1c here now improved at 6.9 * increase Lantus to 12 units BID and give an extra 5 units tonight * ISS and lower CF to 20, increase CR to 1:8 * Continue to monitor * Patient not on Metformin- unable to tolerate in the past, per notes due to myalgias/fatigue -- per nursing, patient states she had hallucinations on metformin (11) Prolonged QT interval: * Patient with longstanding history of prolonged QT * Per previous notes, patient with qtc 500ms * Tele with NSR 70-80s, PVCs/PACs * QTc currently 466ms by telemetry measurement (12) DVT prophylaxis: * SCDs Disposition - NPO for EGD on Friday -- if negative, patient may be discharged and follow up with GI as outpatient Supervising Physician Co-Signing Physician Notes PA Supervision Note: I did not personally see or examine the patient today, but I verified all maradiaga points of DARLENE Hamilton's assessment and plan with the following exceptions/additions: None Subjective Patient evaluated this morning, originally sleeping in bed. Upon awakening her, she states she is now experiencing epigastric discomfort, similar in characteristic and quality as described on previous discussion. Epigastric, "band-like" with radiation to back, moreso left sided, rated pain 7/10 as sharp and pressure. She states she is concerned about elevated cortisol level and would like a level repeated. She states she did receive pain medications last admission for appendix, and that she was told she was not allergic to the hydrocodone, rather the other components of the Hycodan syrup she had been prescribed. She states she has been on the medical marijuana for >2 years, and has always used tinctures. She states on occasion it does make her extremely nausea and lightheaded, but she denies pain with those episodes. She is agreeable to try capsaicin cream to see if she gets any relief. Review of Systems Constitutional: + fatigue; no fever and no chills Eyes: no problem reported Ear, Nose, Mouth, Throat: no ear pain and no tinnitus Respiratory: no cough and no dyspnea Cardiovascular: + palpitations (supposed to have holter monitor friday with Dr. Stout) Additional Comments: "chest pressure, left sided as well as left forearm, sparing her left upper arm" Gastrointestinal: + abdominal pain and + nausea; no vomiting Epigastric pain with radiation to sides and back Genitourinary: no dysuria and no urinary frequency Musculoskeletal: + back pain Integumentary: no rash and no lesions Psychiatric: + anxiety fog Physical Exam Constitutional: WD/WN, vitals as above + overweight; no acute distress Eyes: PERRL, conjunctivae normal, anicteric sclerae ENMT: external ear and nose normal, oropharynx normal Neck: trachea midline, no thyromegaly Respiratory: normal respiratory effort, lungs clear to auscultation Cardiovascular: RRR, no murmur, no edema Gastrointestinal (Abdomen): Inspection/Auscultation: abdomen normal to inspection and normal bowel sounds; abdomen not distended Percussion/Palpation: no guarding, abdomen not rigid and no hepatosplenomegaly tender to palpation LLQ and epigastric region Skin: no rashes, warm and dry Neurologic: PERRL, EOMI, accommodation nl, no face palsy, no dysarthria Psychiatric: Orientation: alert and oriented x 3 Affect: + anxious affect Results & Data Vital Signs (Past 12 Hours) Vital Signs Temp Pulse Pulse Resp BP Pulse Ox 07/18/19 07:18 36.4 C L 81 18 117/65 94 07/18/19 04:37 36.5 C 70 18 122/71 97 07/18/19 01:07 92 H 07/17/19 23:00 36.6 C 81 19 150/84 H 96 Laboratory Results 07/18/19 07/18/19 07/18/19 Range/Units 07:19 06:11 06:11 WBC 5.97 (4.8-10.8) K/uL RBC 4.12 L (4.2-5.4) M/uL Hgb 12.6 (12.0-16.0) g/dL Hct 36.8 L (37-47) % MCV 89.3 (80-100) fL MCH 30.6 (25-34) pg MCHC 34.2 (32-36) g/dL RDW Std Deviation 42.7 (36.4-46.3) fL RDW Coeff of [place]ma 13.1 (11.5-14.5) % Plt Count 213 (130-400) K/uL MPV 9.9 (7.4-10.4) fL Immature Gran % (Auto) 0.2 % Neut % (Auto) 39.6 % Lymph % (Auto) 50.1 % Pickett % (Auto) 7.0 % Eos % (Auto) 2.8 % Baso % (Auto) 0.3 % Immature Gran # (Auto) 0.01 (0.00-0.02) K/uL Neut # (Auto) 2.36 (1.4-6.5) K/uL Lymph # (Auto) 2.99 (1.2-3.4) K/uL Pickett # (Auto) 0.42 (0.11-0.59) K/uL Eos # (Auto) 0.17 (0-0.5) K/uL Baso # (Auto) 0.02 (0-0.2) K/uL Sodium 138 (136-145) mmol/L Potassium 4.0 (3.5-5.1) mmol/L Chloride 105 (98-107) mmol/L Carbon Dioxide 27 (21-32) mmol/L Anion Gap 7.0 (3-11) BUN 13 (7-18) mg/dl Creatinine 0.96 (0.6-1.2) mg/dl Est Cr Clr Drug Dosing 78.7 ml/min Est GFR ( Amer) 78.3 Est GFR (Non-Af Amer) 67.5 BUN/Creatinine Ratio 13.8 (10-20) Glucose 201 H (70-99) mg/dl POC Glucose 267 H (70-99) Estimat Average Glucose mg/dl Hemoglobin A1c (4.5-5.6) % Calcium 9.0 (8.5-10.1) mg/dl Magnesium 2.0 (1.8-2.4) mg/dl Triglycerides 478 H (0-150) mg/dl Cholesterol 230 H (0-200) mg/dl LDL Cholesterol, Calc mg/dl VLDL Cholesterol, Calc mg/dl HDL Cholesterol 38 mg/dl Cholesterol/HDL Ratio 6 Lipase (73-393) U/L 07/17/19 07/17/19 07/17/19 Range/Units 20:05 16:18 11:36 WBC (4.8-10.8) K/uL RBC (4.2-5.4) M/uL Hgb (12.0-16.0) g/dL Hct (37-47) % MCV (80-100) fL MCH (25-34) pg MCHC (32-36) g/dL RDW Std Deviation (36.4-46.3) fL RDW Coeff of Alma (11.5-14.5) % Plt Count (130-400) K/uL MPV (7.4-10.4) fL Immature Gran % (Auto) % Neut % (Auto) % Lymph % (Auto) % Pickett % (Auto) % Eos % (Auto) % Baso % (Auto) % Immature Gran # (Auto) (0.00-0.02) K/uL Neut # (Auto) (1.4-6.5) K/uL Lymph # (Auto) (1.2-3.4) K/uL Pickett # (Auto) (0.11-0.59) K/uL Eos # (Auto) (0-0.5) K/uL Baso # (Auto) (0-0.2) K/uL Sodium (136-145) mmol/L Potassium (3.5-5.1) mmol/L Chloride (98-107) mmol/L Carbon Dioxide (21-32) mmol/L Anion Gap (3-11) BUN (7-18) mg/dl Creatinine (0.6-1.2) mg/dl Est Cr Clr Drug Dosing ml/min Est GFR ( Amer) Est GFR (Non-Af Amer) BUN/Creatinine Ratio (10-20) Glucose (70-99) mg/dl POC Glucose 223 H 121 H 130 H (70-99) Estimat Average Glucose mg/dl Hemoglobin A1c (4.5-5.6) % Calcium (8.5-10.1) mg/dl Magnesium (1.8-2.4) mg/dl Triglycerides (0-150) mg/dl Cholesterol (0-200) mg/dl LDL Cholesterol, Calc mg/dl VLDL Cholesterol, Calc mg/dl HDL Cholesterol mg/dl Cholesterol/HDL Ratio Lipase (73-393) U/L 07/17/19 07/17/19 Range/Units 06:42 06:37 WBC (4.8-10.8) K/uL RBC (4.2-5.4) M/uL Hgb (12.0-16.0) g/dL Hct (37-47) % MCV (80-100) fL MCH (25-34) pg MCHC (32-36) g/dL RDW Std Deviation (36.4-46.3) fL RDW Coeff of Alma (11.5-14.5) % Plt Count (130-400) K/uL MPV (7.4-10.4) fL Immature Gran % (Auto) % Neut % (Auto) % Lymph % (Auto) % Pickett % (Auto) % Eos % (Auto) % Baso % (Auto) % Immature Gran # (Auto) (0.00-0.02) K/uL Neut # (Auto) (1.4-6.5) K/uL Lymph # (Auto) (1.2-3.4) K/uL Pickett # (Auto) (0.11-0.59) K/uL Eos # (Auto) (0-0.5) K/uL Baso # (Auto) (0-0.2) K/uL Sodium (136-145) mmol/L Potassium (3.5-5.1) mmol/L Chloride (98-107) mmol/L Carbon Dioxide (21-32) mmol/L Anion Gap (3-11) BUN (7-18) mg/dl Creatinine (0.6-1.2) mg/dl Est Cr Clr Drug Dosing ml/min Est GFR ( Amer) Est GFR (Non-Af Amer) BUN/Creatinine Ratio (10-20) Glucose (70-99) mg/dl POC Glucose (70-99) Estimat Average Glucose 151 mg/dl Hemoglobin A1c 6.9 H (4.5-5.6) % Calcium (8.5-10.1) mg/dl Magnesium 2.5 H (1.8-2.4) mg/dl Triglycerides (0-150) mg/dl Cholesterol (0-200) mg/dl LDL Cholesterol, Calc mg/dl VLDL Cholesterol, Calc mg/dl HDL Cholesterol mg/dl Cholesterol/HDL Ratio Lipase 177 (73-393) U/L Diagnostic Findings Echocardiogram 07/17/19 1. Normal LV size and systolic function. EF 55-60%. No regional wall motion abnormalities. Mild concentric left ventricular hypertrophy, 2. Sclerotic aortic valve without significant stenosis. 3. Normal estimated right ventricular systolic pressure. 4. Compared to prior study on 02/05/16, mitral regurgitation now appears trace. CT chest w con COMPARISON: None. FINDINGS: The lungs are clear. The mediastinal vascular structures are within normal limits. No mediastinal or hilar lymphadenopathy. No pleural effusion or pneumothorax. Limited views of the upper abdomen demonstrate a normal liver and spleen. IMPRESSION: No significant abnormality identified within the chest. CT abd pelvis oral and IV con FINDINGS: The lung bases are clear. The liver, spleen, gallbladder, pancreas, kidneys, and adrenal glands are within normal limits. No bowel wall thickening or obstruction. The pelvic organs are unremarkable. No suspicious lytic or blastic osseous lesions. Liver demonstrates moderate enlargement and fatty infiltration. Spleen is unremarkable. Nonobstructive bowel pattern. Bladder is midline. Kidneys are negative for hydronephrosis. IMPRESSION: 1. Moderate hepatomegaly with findings of fatty infiltration. 2. Otherwise negative abdomen and pelvis. 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
[2019-07-18] MEDS: INSULIN GLARGINE SOLOSTAR 100 UNITS/ML 3 ML PEN SC SCH ×2 (08:36→20:57)
[2019-07-18] MEDS: MAGNESIUM OXIDE 400 MG TAB PO SCH ×3 (09:22→20:56)
[2019-07-18] MEDS: INSULIN ASPART 100 UNITS/ML 3 ML PEN SC SCH ×4 (09:22→20:59)
[2019-07-18] MEDS ORDERED: PROMETHAZINE HCL 25 MG TAB PO ONE (10:31)
--- NOTE | 2019-07-18 10:36 | Gastroenterology Progress Note ---
Date of Service July 18, 2019 Assessment & Plan (1) Nausea: -Her presentation with the spells sound that her potential systemic issue that she is undergoing is causing her nausea. -May be gastro paretic exacerbation -Patient is able to tolerate pickles and is perseverating on the point that this may make her feel better -Tolerating regular diet -Lipase is normal -Reviewed right upper quadrant ultrasound without worrisome pathology -Would make n.p.o. after midnight for Dr. Wallace to evaluate in the morning if EGD as an inpatient is warranted, or if patient feels up to it can go home today and follow-up with Dr. Wallace as an outpatient. -If symptoms persist consider CT of the abdomen with iv and oral contrast Thank you for the consultation and call with any questions or concerns. Subjective Patient sitting in bed texting on her phone, still complains of some bandlike pressure around her abdomen. Review of Systems Review of Systems: All systems reviewed & are unremarkable except as noted in HPI & below Physical Exam Constitutional: WD/WN, vitals as above Cardiovascular: RRR, no murmur, no edema Gastrointestinal (Abdomen): normal bowel sounds, soft, nontender, no hepatosplenomegaly Results & Data Vital Signs (Past 12 Hours) Vital Signs Temp Pulse Pulse Resp BP Pulse Ox 07/18/19 07:18 36.4 C L 81 18 117/65 94 07/18/19 04:37 36.5 C 70 18 122/71 97 07/18/19 01:07 92 H 07/17/19 23:00 36.6 C 81 19 150/84 H 96
[2019-07-18] MEDS: METOCLOPRAMIDE HCL INJ 5 MG/ML 2 ML VIAL IV PRN (13:00)
[2019-07-18] MEDS ORDERED: IOVERSOL 100ml IV PRN (13:16)
--- NOTE | 2019-07-18 13:33 | CT Scan Report ---
CT chest w con CT DOSE: 2422.92 mGy.cm HISTORY: Pain epigastric, chest pain TECHNIQUE: Multiaxial CT images of the chest were performed following the intravenous administration of contrast. A dose lowering technique was utilized adhering to the principles of ALARA. COMPARISON: None. FINDINGS: The lungs are clear. The mediastinal vascular structures are within normal limits. No media stinal or hilar lymphadenopathy. No pleural effusion or pneumothorax. Limited views of the upper abdo men demonstrate a normal liver and spleen. IMPRESSION: No significant abnormality identified within the chest. The above report was generated using voice recognition software. It may contain grammatical, syntax or spelling errors. Electronically signed by: Ata Garcia M.D. 07/18/2019 1:32 PM
--- NOTE | 2019-07-18 13:40 | CT Scan Report ---
CT abd pelvis oral and IV con CT DOSE: HISTORY: Pain epigastric abd pain, ?hiatal hernia TECHNIQUE: Multiaxial CT images of the abdomen and pelvis were performed following the use of intrave nous and oral contrast. A dose lowering technique was utilized adhering to the principles of ALARA. COMPARISON STUDY: None. FINDINGS: The lung bases are clear. The liver, spleen, gallbladder, pancreas, kidneys, and adrenal gl ands are within normal limits. No bowel wall thickening or obstruction. The pelvic organs are unremar kable. No suspicious lytic or blastic osseous lesions. Liver demonstrates moderate enlargement and fa tty infiltration. Spleen is unremarkable. Nonobstructive bowel pattern. Bladder is midline. Kidneys are negative for hydronephrosis. IMPRESSION: 1. Moderate hepatomegaly with findings of fatty infiltration. 2. Otherwise negative abdomen and pelvis. The above report was generated using voice recognition software. It may contain grammatical, syntax or spelling errors. Electronically signed by: Ata Garcia M.D. 07/18/2019 1:39 PM
[2019-07-18] MEDS: CAPSAICIN CR 0.075% 60 GM TUBE EXT PRN (15:25)
[2019-07-18] MEDS: PROMETHAZINE HCL 25 MG TAB PO PRN (17:47)
[2019-07-18] MEDS: ACETAMINOPHEN 325 MG TAB PO PRN (17:48)
[2019-07-18] MEDS: PANTOprazole 40 MG TAB PO SCH (20:56)
[2019-07-18] MEDS: SIMVASTATIN 40 MG TAB PO SCH (20:56)
[2019-07-18] MEDS: FERROUS SULFATE 325 MG TAB PO SCH (20:56)
[2019-07-18] MEDS: LISINOPRIL 10 MG TAB PO SCH (20:56)
[2019-07-18] MEDS ORDERED: INSULIN GLARGINE SOLOSTAR 100 UNITS/ML 3 ML PEN SC STA (23:06)
[2019-07-19] MEDS: CAPSAICIN CR 0.075% 60 GM TUBE EXT PRN (00:17)
[2019-07-19] MEDS: PROMETHAZINE HCL 25 MG TAB PO PRN ×3 (00:42→22:08)
[2019-07-19] MEDS: LINZESS~ORDER AWAITING ACTION SCH ×3 (00:44→17:02)
[2019-07-19] MEDS: LEVOTHYROXINE SODIUM 112 MCG TABLET PO SCH (06:30)
[2019-07-19] MEDS: MAGNESIUM OXIDE 400 MG TAB PO SCH ×2 (07:47→20:40)
[2019-07-19] MEDS: VENLAFAXINE HCL XR 37.5 MG CAPXR PO SCH (07:47)
[2019-07-19] MEDS: METOPROLOL TARTRATE 50 MG TAB PO SCH (07:48)
[2019-07-19] MEDS: LORATADINE 10 MG TAB PO SCH (07:48)
[2019-07-19] MEDS: clonazePAM 1 MG TAB PO SCH ×3 (07:52→20:38)
--- NOTE | 2019-07-19 08:54 | Cardiology Progress Note ---
Date of Service July 19, 2019 Subjective She is sleeping comfortably this morning. She did not appear in any distress. She is aware of palpitations with her PVCs. Results & Data Vital Signs (Past 12 Hours) Vital Signs Temp Pulse Pulse Resp BP BP Pulse Ox 07/19/19 07:00 36.6 C 74 16 127/72 97 07/19/19 04:10 36.7 C 78 20 146/55 H 96 07/19/19 02:24 88 07/18/19 23:40 36.8 C 100 H 20 143/79 H 98 She is awake alert and oriented x3. HEENT: 2+ carotid upstrokes no evidence of carotid bruits Lungs: Clear to auscultation bilaterally no rales rhonchi or wheezing Heart: Regular rate and rhythm with occasional ectopy no appreciable murmurs or rubs Extremities: No clubbing cyanosis or edema (1) Frequent PVCs: (2) Intermittent palpitations: (3) Abdominal pain: ASSESSMENT/PLAN: 1. Palpitations: She has symptomatic PVCs. At this point I would uptitrate her beta-blockers to 37-1/2 mg twice daily which will also help with her long QT syndrome. In addition I would send her home on a magnesium potassium [id number] supplement to keep her magnesium greater than 2.0 potassium greater than 4. 2. PVCs: She has frequent PVCs noted on ECG. It is not likely that the PVCs are responsible for her abdominal pain, nausea, and extreme dizziness/lightheadedness with headache. 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 3. Abdominal pain/nausea: Noncardiac in etiology. GI has been consulted for further work-up 4. Prolonged QT: Avoid medications that can prolong QT. Keep her potassium greater than 4.0 magnesium greater than 2.0
--- NOTE | 2019-07-19 09:02 | History & Physical Bridge Note ---
Date of Service July 19, 2019 History & Physical Bridge Note I have examined the patient, reviewed the History & Physical and in the interval since the performance of the History & Physical I have noted the following changes of clinical significance: no changes noted Patient persists with complaints of chest pain/palpitations as well as epigastric abdominal pain radiating to the LUQ and back. /10 at present with reported nausea. No vomiting. No overt GIB symptoms today. PE: A&Ox3. Lungs CTA bilaterally. Cardiovascular: RRR without M/R/G. Abdomen soft, tender in the epigastric region. Normal bowel sounds. A/P: Epigastric pain, chest pain and nausea. 1. NPO. 2. EGD with Dr. Alonso today. 3. Additional recommendations pending results of testing. Supervising Physician Co-Signing Physician Notes I personally evaluated the patient and agree with the findings as documented by ARELY Chao Exam: abd: soft, nt, nd Proceed with EGD. risks/benefits and procedure discussed with patient, who agrees to proceed
[2019-07-19] MEDS ORDERED: INSULIN GLARGINE SOLOSTAR 100 UNITS/ML 3 ML PEN SC ONE (10:00)
[2019-07-19] MEDS: INSULIN GLARGINE SOLOSTAR 100 UNITS/ML 3 ML PEN SC SCH ×2 (10:21→20:41)
[2019-07-19] MEDS: INSULIN ASPART 100 UNITS/ML 3 ML PEN SC SCH ×4 (10:21→20:43)
--- NOTE | 2019-07-19 11:03 | Anesthesiology Consultation ---
Date of Service July 19, 2019 Assessment & Plan (1) Encounter for pre-operative examination: Chart Review Chart Review: Acceptable Risk for Surgery and Patient NOT seen in Pre Admission Testing Consults Requested none History Surgery Operation Date: 07/19/19 09:15 Proposed Procedures p Esophagogastroduodenoscopy Dr. Gavin Alonso MD Height/Weight Height: 5 ft 2 in Weight: 108.6 kg Allergies Allergy/AdvReac Type Severity Reaction Status Date / Time homatropine Allergy Severe ANNAPHYLACTIC Verified 07/17/19 00:30 SHOCK hydrocodone Allergy Severe ANNAPHYLACTIC Verified 07/17/19 00:30 SHOCK erythromycin base Allergy Intermediate RASH Verified 07/17/19 00:30 Sulfa (Sulfonamide Allergy Intermediate RASH Verified 07/17/19 00:30 Antibiotics) methylprednisolone Allergy Mild RASH Verified 07/17/19 00:30 ondansetron Allergy Mild Cardiac Verified 07/17/19 00:30 symptoms hydromorphone AdvReac Intermediate confusion Verified 07/17/19 00:30 Medications Home Medications Medication Instructions Recorded Confirmed Last Taken lisinopril 10 mg PO HS #0 11/12/14 07/17/19 04/05/19 metoprolol tartrate [Lopressor] 25 mg PO BID #0 tab 02/12/16 07/17/19 04/05/19 hydrochlorothiazide 25 mg PO DAILY PRN #0 07/29/16 07/17/19 Unknown loratadine [Claritin] 10 mg PO QAM #0 07/29/16 07/17/19 04/05/19 omeprazole 40 mg PO HS #0 07/29/16 07/17/19 04/05/19 ferrous sulfate 325 mg PO HS #0 08/09/16 07/17/19 04/05/19 cholecalciferol (vitamin D3) 2,000 unit PO QAM #0 09/01/17 07/17/19 04/05/19 levothyroxine 112 mcg PO QAM #0 09/01/17 07/17/19 04/05/19 Linzess 145 mcg PO QAM #0 12/11/17 07/17/19 04/05/19 Basaglar KwikPen U-100 Insulin 24 unit SUBCUT HS #0 03/26/18 07/17/19 04/05/19 insulin lispro [Admelog U-100 1 sliding scale dose SUBCUT 04/06/19 07/17/19 Unknown Insulin lispro] DIRECTED magnesium oxide 400 mg PO BID 04/06/19 07/17/19 04/05/19 clonazepam 0.5 mg PO TID 05/30/19 07/17/19 Unknown simvastatin 40 mg PO HS 05/30/19 07/17/19 Unknown venlafaxine [Effexor XR] 37.5 mg PO DAILY 07/17/19 07/17/19 Unknown Active Medications Generic Name Dose Route Start Last Admin Trade Name Freq PRN Reason Stop Dose Admin Acetaminophen 650 mg 07/17/19 04:22 07/18/19 17:48 Tylenol PO 08/16/19 04:21 650 mg Q4H PRN Administration pain/fever Capsaicin 1 appln 07/18/19 10:28 07/19/19 00:17 Zostrix EXT 08/17/19 10:27 1 appln Q6 PRN Administration Moderate Pain Clonazepam 0.5 mg 07/17/19 21:00 07/19/19 07:52 Klonopin PO 08/16/19 20:59 0.5 mg TID DARLEEN Administration Ferrous Sulfate 325 mg 07/17/19 21:00 07/18/19 20:56 Feosol PO 08/16/19 20:59 325 mg HS DARLEEN Administration Insulin Aspart 0 units 07/17/19 07:30 07/19/19 10:21 Novolog Flexpen SC 08/16/19 07:29 1 units ACHS DARLEEN Administration Insulin Glargine 12 units 07/19/19 09:00 07/19/19 10:21 Lantus Solostar Pen SC 08/18/19 08:59 Not Given BID DARLEEN Ioversol 94 ml 07/18/19 13:16 07/18/19 13:17 Optiray 320 100ml IV 07/22/19 13:15 94 ml ONCE PRN Administration Interaction Checking Levothyroxine Sodium 112 mcg 07/17/19 06:30 07/19/19 06:30 Synthroid PO 08/16/19 06:29 112 mcg DAILYBB DARLEEN Administration Lisinopril 10 mg 07/17/19 21:00 07/18/19 20:56 Zestril PO 08/16/19 20:59 10 mg HS DARLEEN Administration Loratadine 10 mg 10/26/19 09:00 07/19/19 07:48 Claritin PO 08/16/19 08:59 10 mg QAM DARLEEN Administration Magnesium Oxide 400 mg 07/18/19 09:30 07/19/19 07:47 Mag-Ox PO 08/17/19 08:59 400 mg BID DARLEEN Administration Metoclopramide HCl 10 mg 07/17/19 16:28 07/18/19 13:00 Reglan IV 08/16/19 04:21 10 mg TID PRN Administration abdominal pain Miscellaneous 1 ea 07/17/19 05:00 07/19/19 08:50 Order Awaiting Action N/A 08/16/19 04:59 Not Given QS DARLEEN Pantoprazole Sodium 40 mg 07/17/19 21:00 07/18/19 20:56 Protonix PO 08/16/19 20:59 40 mg HS DARLEEN Administration Promethazine HCl 12.5 mg 07/18/19 16:42 07/19/19 06:31 Phenergan PO 08/17/19 16:44 12.5 mg Q6H PRN Administration Pain Simvastatin 40 mg 07/17/19 21:00 07/18/19 20:56 Zocor PO 08/16/19 20:59 40 mg HS DARLEEN Administration Venlafaxine HCl 37.5 mg 07/17/19 09:00 07/19/19 07:47 Effexor Extended Release PO 08/16/19 08:59 37.5 mg DAILY DARLEEN Administration NPO Date Last Intake of Fluids: 07/19/19 Time Last Intake of Fluids: 00:00 Date Last Intake of Solids: 07/18/19 Time Last Intake of Solids: 18:00 Past Medical History Medical History Prolonged QT interval Acute abdominal pain Dyslipidemia (Chronic) Hypothyroidism (Chronic) GERD (gastroesophageal reflux disease) (Chronic) Hypertension (Chronic) Diabetes (Chronic) Lumbar radiculopathy (Chronic) Panic disorder with agoraphobia (Chronic) PTSD (post-traumatic stress disorder) (Chronic) Gastroparesis (Chronic) Prolonged QT interval Exercise / Class Metabolic Activity II 4-5 Yardwork/Stairs/Walk up hill Past Family History Family History Other Heart disease Past Surgical History Surgical History S/P appendectomy (Acute) History of delivery Past Anesthesia History No Hx of Anesthesia Complications and No Family Hx of Anesthesia Complications History of PONV No Hx of PONV and No Hx of Motion Sickness Social History Smoking Status: Never smoker Hx Alcohol Use: Yes Alcohol type: wine alcohol intake frequency: a few times a month Hx Substance Use: No substance use type: marijuana Substance Use Type Other:: Medical Marijuana Physical Exam Vital Signs Last Vital Signs Temp 36.5 C 07/19/19 10:39 Pulse 78 07/19/19 10:39 Resp 16 07/19/19 10:39 BP 135/76 07/19/19 10:39 Pulse Ox 96 07/19/19 10:39 Testing Laboratory Results 07/18/19 06:11 07/18/19 06:11 Hemoglobin A1c 6.9 % (4.5-5.6) H 07/17/19 06:37 07/19/19 07:43 POC Glucose 154 H Electrocardiogram Date: 07/16/19 Findings: + NSR @ (95) NSR with PVC's. Prolonged QT.
[2019-07-19] MEDS ORDERED: LIDOCAINE HCL 2% 2 ML VIAL/AMP(20MG/ML) INFIL ONE (12:28)
[2019-07-19] MEDS ORDERED: PROPOFOL IV EMULSION 10 MG/ML 20 ML VIAL IV ONE (12:28)
--- NOTE | 2019-07-19 12:31 | Communication Note ---
Date of Service: July 19, 2019 GI brief note: EGD showed large 12 cm hiatal hernia, multiple gastric polyps, gastritis, see full note for details Recs: --recommend surgical evaluation for large hiatal hernia f/u bx results
--- NOTE | 2019-07-19 12:40 | GI REPORT ---
Patient Name: Ulysses Marcum Procedure Date: 07/19/2019 11:55 AM Date of : 1965 Admit Type: Inpatient Age: 54 Gender: Female Attending MD: Primo Alonso MD Procedure: Upper GI endoscopy Providers: Primo Alonso MD Referring MD: Referred Luis, Amina Salcido Md Indications: Nausea Medicines: Monitored Anesthesia Care Complications: No immediate complications. Estimated blood loss: None. Estimated Blood Loss: Estimated blood loss: none. Procedure: Pre-Anesthesia Assessment: - Prior Anticoagulants: The patient has taken no previous anticoagulant or antiplatelet agents. - ASA Grade Assessment: III - A patient with severe systemic disease. After obtaining informed consent, the endoscope was passed under direct vision. Throughout the procedure, the patient's blood pressure, pulse, and oxygen saturations were monitored continuously. The Endoscope was introduced through the mouth, and advanced to the second part of duodenum. The upper GI endoscopy was accomplished without difficulty. The patient tolerated the procedure well. Findings: A large 12 cm hiatal hernia was present. Multiple medium sessile polyps with no bleeding and no stigmata of recent bleeding were found in the gastric body. One 15 mm sessile polyp with no bleeding and no stigmata of recent bleeding was found in the gastric body. The polyp was removed with a cold snare. Resection and retrieval were complete. Estimated blood loss: none. One 8 mm sessile polyp with no bleeding and no stigmata of recent bleeding was found in the gastric body. The polyp was removed with a cold snare. Resection and retrieval were complete. Estimated blood loss: none. Diffuse moderate inflammation characterized by erythema was found in the gastric antrum. Biopsies were taken with a cold forceps for Helicobacter pylori testing. Estimated blood loss: none. The duodenal bulb and second portion of the duodenum were normal. Impression: - Large hiatal hernia. - Multiple gastric polyps. - One gastric polyp. Resected and retrieved. - One gastric polyp. Resected and retrieved. - Acute gastritis. Biopsied. - Normal duodenal bulb and second portion of the duodenum. Recommendation: - [facility] care. - Resume previous diet today. - Await pathology results. Surgery evaluation for hiatal hernia repair Primo Alonso MD 07/19/2019 12:39:52 PM This report has been signed electronically. Note Initiated On: 07/19/2019 11:55 AM Number of Addenda: 0 I attest to the content of the Intraoperative Record and orders documented therein, exceptions below {[id number]}
--- NOTE | 2019-07-19 12:41 | Anesthesiology Progress Note ---
Date of Service July 19, 2019 Anesthesia Post Procedure Vital Signs Vital Signs: Temp Pulse Pulse Resp BP BP Pulse Ox 07/19/19 12:25 80 16 101/51 L 95 07/19/19 10:39 36.5 C 78 16 135/76 96 07/19/19 07:00 36.6 C 74 16 127/72 97 07/19/19 04:10 36.7 C 78 20 146/55 H 96 07/19/19 02:24 88 07/18/19 23:40 36.8 C 100 H 20 143/79 H 98 07/18/19 19:17 36.8 C 91 H 20 156/62 H 95 07/18/19 17:35 36.8 C 85 20 152/62 H 94 07/18/19 16:00 76 Pain Intensity Chest: Pain Intensity: 7 Bilateral Abdomen: Pain Intensity: 6 Transfer of Care Handoff Completed per policy Notes Mental Status: alert / awake / arousable and participated in evaluation Patient Amnestic to Procedure: Yes Nausea / Vomiting: adequately controlled Pain: adequately controlled Airway Patency, RR, SpO2: stable & adequate BP & HR: stable & adequate Hydration State: stable & adequate Anesthetic Complications: no major complications apparent and Pt Satisfied with anesthetic care
[2019-07-19] MEDS ORDERED: PROMETHAZINE HCL 12.5 MG in SODIUM CHLORIDE 0.9% 50 ML IV PRN (13:07)
[2019-07-19] MEDS: ACETAMINOPHEN 325 MG TAB PO PRN (13:40)
[2019-07-19] MEDS: METOPROLOL TARTRATE 25 MG TAB PO SCH ×2 (13:41→20:37)
--- NOTE | 2019-07-19 15:35 | Hospitalist Progress Note ---
Date of Service July 19, 2019 Assessment & Plan (1) Intermittent palpitations: * Patient with symptomatic palpitations, increasing in frequency and severity over the last 2 weeks. Witnessed bigeminy on monitor by ER physician during symptomatic episode. Patient with cardiac risk factors of HTN, HLP, DM, family history of premature CAD. * ECHO here - normal LV systolic function. No WMA. Mild LVH. Trace mitral regurgitation * Cardiology consulted - does not think nausea and abdominal pain is caused by her PVCs-continues to have nausea/abd pain in absence of PVCs * Metoprolol increased by cardiology to 37.5 mg by cardiology * Avoid QT prolonging agents - EKG with QTC 524ms on ECG * TSH 2.32 * Per cardiology - send her home on a magnesium, potassium [id number] supplement to keep her magnesium greater than 2.0 potassium greater than 4. * Per endocrinology notes, patient with elevated cortisol level with normal 24 hour cortisol. Patient to undergo saliva testing, but has not completed due conflict with directions to do during a day without increased stress * Trop negative * AM Cortisol wnl (2) Epigastric abdominal pain: * U/S RUQ with mod/marked fatty liver, heterogeneity of pancreas. Lipase 209 and then decreased after that * Patient with history of hiatal hernia- was supposed to have repaired, but was supposed to strengthen abdominal muscles prior to surgery--never followed thr ough--> CT chest negative --? sliding hiatal hernia causing intermittent pain>? * *Also, patient with medical marijuana - has been on tincture for past two years - ??cyclic vomiting contributing? Provided capsaicin cream however patient was using on lower back not abdomen * CT/Abd Pelvis, CT Chest without evidence of acute process * Continue PPI * continue Reglan 10mg IV q 8 hours as needed for abdominal fullness/pain * Phenergan 12.5mg PO prn * EGD with Dr. Wallace showing large hiatal hernia - recommends surgical consult. Dr. Gonzalez consulted * biopsies taken, gastric polyps removed - follow path (3) Dyslipidemia: * Continue statin * Lipid panel - cholesterol 230, HLD 38 * Elevated triglycerides at 478 (4) Hypothyroidism: * Chronic. Stable * TSH=2.32 * Continue Synthroid 112 mcg po daily -- patient scheduled six days a week, but will continue daily dosing. Patient states she "always feels better < 2.0" (5) GERD (gastroesophageal reflux disease): * Chronic. Increased pain as above. No melena/hematochezia * Continue PPI * Maalox PRN * Avoid Zofran d/t hx prolonged QT (6) Hypertension: * Blood pressures labile * Continue Lisinopril 10mg po qHS * Continue Metoprolol 25mg po BID (7) Gastroparesis: * Chronic. Typically managed with careful diet. Patient feels that her gastroparesis may be causing some of her abdominal discomfort. She is unable to tolerate Zofran secondary to prolonged QT interval. She is typically able to tolerate Reglan. * Reglan * Monitor QT interval * Per patient, improved abdominal pain with Phenergan- will allow 12.5mg prn (8) Panic disorder with agoraphobia: * Chronic. Patient feels that her symptoms are fairly well controlled at present to admitting hospitalist. Patient with longstanding history of anxiety as well as admissions to [facility]. * Continue Effexor 37.5mg po daily -- may be contributing to prolonged QT (most recent QTc on telemetry strip 466ms)--> per previous inpatient note, patient was to have effexor dosage discussed with PCP * continue Clonazepam 0.5mg TID per PDMP records (9) Chest pain: * Patient with occasional chest discomfort, atypical. Does not seem to be exertional in nature. She has history of HTN, HLP, DM and FH of premature CAD. Negative stress test in 2016 * Cardiology consulted * no complaints of chest pain today (10) Diabetes: * Blood sugar high here. * Hgb A1c=9.5 in August 2017 - A1c here now improved at 6.9 * ss, increased Lantus to 12 units BID - given half dose this morning for NPO status (11) Prolonged QT interval: * Patient with longstanding history of prolonged QT * Per previous notes, patient with qtc 500ms * Tele with NSR 70-80s, PVCs/PACs (12) Fatty liver: Moderate fatty liver on imaging - will need lifestyle counseling A1c has improved to 6.9 Elevated triglycerides (13) DVT prophylaxis: * SCDs Disposition - awaiting surgical consult Supervising Physician Co-Signing Physician Notes I have seen and examined patient with ARELY Soto and agree with her assessment and plan. Subjective Continues to have pressure/pain around left upper quadrant/epigastrum. Some nausea and dry heaving. Continues to feel palpitations and lightheadedness. ROS Constitutional: no chills, aches, sweats or fever Respiratory: no sob,cough, sputum, or wheezing Cardiac: no chest pain, palpitations, edema, orthopnea or lightheadedness GI: see HPI : no dysuria or hesitancy Extremities: no joint pain or weakness Skin: no rash All other systems reviewed and negative Physical Exam Physical Exam: General: no distress Eyes: normal inspection, PERLL Respiratory: chest non tender, clear to auscultation, normal breath sounds, no respiratory distress, no accessory muscle use Cardiac: regular rate and rhythm, no rub or gallop, no murmur, no edema, no jvd GI/: active bowel sounds, left upper quadrant tenderness, soft, non distended Extremities: normal range of motion, normal strength, non tender Neuro/Psych: alert and oriented x 3, normal mood and affect Skin: normal color, dry Results & Data Vital Signs (Past 12 Hours) Vital Signs Temp Pulse Resp BP BP Pulse Ox 07/19/19 14:54 36.8 C 64 19 136/81 95 07/19/19 13:53 36.7 C 75 18 126/77 96 07/19/19 12:55 76 16 138/78 95 07/19/19 12:40 81 16 157/74 H 97 07/19/19 12:25 80 16 101/51 L 95 07/19/19 10:39 36.5 C 78 16 135/76 96 07/19/19 07:00 36.6 C 74 16 127/72 97 07/19/19 04:10 36.7 C 78 20 146/55 H 96 PG Care Time/CCT Total # of Minutes Spent Total Time Spent with Patient: Total time spent is greater than 50% in coordination of care (as documented) at patient's floor/unit and/or counseling patient: (1) Diabetes Diabetes mellitus complication status: without complication Diabetes mellitus usp insulin use: with usp use Diabetes mellitus type: type 2 Qualified Code(s): E11.9 - Type 2 diabetes mellitus without complications; Z79.4 - care home (current) use of insulin (2) Hypothyroidism Hypothyroidism type: unspecified Qualified Code(s): E03.9 - Hypothyroidism, unspecified (3) GERD (gastroesophageal reflux disease) Esophagitis presence: esophagitis presence not specified Qualified Code(s): K21.9 - Gastro-esophageal reflux disease without esophagitis (4) Chest pain Chest pain type: unspecified Qualified Code(s): R07.9 - Chest pain, unspecified (5) Hypertension Hypertension type: essential hypertension Qualified Code(s): I10 - Essential (primary) hypertension
[2019-07-19] MEDS: DiphenhydrAMINE HCL 50 MG/ML VIAL IV SCH ×2 (16:54→21:54)
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
[2019-07-19] MEDS: SIMVASTATIN 40 MG TAB PO SCH (20:38)
[2019-07-19] MEDS: LISINOPRIL 10 MG TAB PO SCH (20:39)
[2019-07-19] MEDS: PANTOprazole 40 MG TAB PO SCH (20:39)
[2019-07-19] MEDS: FERROUS SULFATE 325 MG TAB PO SCH (20:40)
[2019-07-20] MEDS: LINZESS~ORDER AWAITING ACTION SCH ×3 (00:35→08:17)
[2019-07-20] MEDS: DiphenhydrAMINE HCL 50 MG/ML VIAL IV SCH ×2 (05:56→11:22)
[2019-07-20] MEDS: LEVOTHYROXINE SODIUM 112 MCG TABLET PO SCH (05:57)
[2019-07-20] MEDS: PROMETHAZINE HCL 25 MG TAB PO PRN (07:10)
[2019-07-20] MEDS: clonazePAM 1 MG TAB PO SCH ×2 (07:43→14:25)
[2019-07-20] MEDS: LORATADINE 10 MG TAB PO SCH (07:44)
[2019-07-20] MEDS: MAGNESIUM OXIDE 400 MG TAB PO SCH (07:44)
[2019-07-20] MEDS: VENLAFAXINE HCL XR 37.5 MG CAPXR PO SCH (07:45)
[2019-07-20] MEDS: INSULIN GLARGINE SOLOSTAR 100 UNITS/ML 3 ML PEN SC SCH (07:52)
[2019-07-20] MEDS: INSULIN ASPART 100 UNITS/ML 3 ML PEN SC SCH ×2 (07:52→12:24)
[2019-07-20] MEDS: METOPROLOL TARTRATE 25 MG TAB PO SCH (08:16)
--- NOTE | 2019-07-20 09:43 | Gastroenterology Progress Note ---
Date of Service July 20, 2019 Assessment & Plan (1) Nausea: (2) Epigastric abdominal pain: (3) Chest pain: 1. Await barium swallow study as ordered. 2. Defer to thoracic surgery in regard to consideration of hiatus hernia repair. 3. Continue supportive care. Will sign off at this time. Please do not hesitate to contact us again if needed during this hospitalization. Supervising Physician Co-Signing Physician Notes I personally evaluated the patient and agree with the findings as documented by ARELY Chao Exam: abd: soft, nt, nd Subjective Patient reports continued epigastric pain rated as 4/10 and reports back pain of 6/10 in intensity. She is awaiting barium swallow study as ordered by Dr. Gonzalez. Pending results, a determination will be made about hiatus hernia repair as this was seen on EGD but not seen on chest CT. Continues NPO status and Pantoprazole 40 mg daily. Review of Systems Constitutional: no fever and no chills Respiratory: no dyspnea Cardiovascular: + chest pain and + palpitations Gastrointestinal: as per Subjective / HPI Psychiatric: as per Subjective / HPI Physical Exam Constitutional: WD/WN, vitals as above Respiratory: normal respiratory effort Auscultation: lungs clear to auscultation bilaterally Cardiovascular: Rate/Rhythm: regular rate and regular rhythm Gastrointestinal (Abdomen): Inspection/Auscultation: abdomen normal to inspection and normal bowel sounds Percussion/Palpation: abdomen soft; abdomen nontender Results & Data Vital Signs (Past 12 Hours) Vital Signs Temp Pulse Pulse Resp BP Pulse Ox 07/20/19 07:27 69 07/20/19 04:27 36.7 C 82 20 90/51 L 93 07/20/19 01:36 75 07/20/19 00:36 78 07/19/19 23:29 36.9 C 74 18 108/66 96 PG Care Time/CCT Total # of Minutes Spent Total Time Spent with Patient: Total time spent is greater than 50% in coordination of care (as documented) at patient's floor/unit and/or counseling patient: (1) Chest pain Chest pain type: unspecified Qualified Code(s): R07.9 - Chest pain, unspecified
--- NOTE | 2019-07-20 10:36 | Fluoroscopy Report ---
FL barium swallow CLINICAL HISTORY: 54 years-old Female with hiatal hernia. Acute epigastric abdominal pain TECHNIQUE: Barium contrast and effervescent crystals were administered to the patient under fluorosco pic examination. Multiple images were obtained and submitted for review. FLUOROSCOPY TIME: 1.7 minutes. 18 images were submitted for review. Comparison: CT chest, abdomen and pelvis 07/18/2019. Findings: During deglutition, contrast material flowed freely through the cervical esophagus. No filling defec t or mucosal abnormality is identified. No abnormal stricturing or mass effect is seen. The mid to distal esophagus is well coated and distended. No abnormal stricturing or mucosal abnormality is milton ntified. No significant reflux or hiatal hernia was demonstrated during the exam. The GE junction i s normal in appearance. Impression: Unremarkable esophagram without a hiatal hernia identified. The above report was generated using voice recognition software. It may contain grammatical, syntax o r spelling errors. Electronically signed by: Sam Box M.D. 07/20/2019 10:34 AM
--- NOTE | 2019-07-20 13:25 | Hospitalist Progress Note ---
Date of Service July 20, 2019 Assessment & Plan (1) Intermittent palpitations: * Patient with symptomatic palpitations, increasing in frequency and severity over the last 2 weeks. Witnessed bigeminy on monitor by ER physician during symptomatic episode. Patient with cardiac risk factors of HTN, HLP, DM, family history of premature CAD. * ECHO here - normal LV systolic function. No WMA. Mild LVH. Trace mitral regurgitation * Cardiology consulted - does not think nausea and abdominal pain is caused by her PVCs-continues to have nausea/abd pain in absence of PVCs * Metoprolol increased by cardiology to 37.5 mg by cardiology * Avoid QT prolonging agents - EKG with QTC 524ms on ECG * TSH 2.32 * Per cardiology - send her home on a magnesium, potassium [id number] supplement to keep her magnesium greater than 2.0 potassium greater than 4. * Per endocrinology notes, patient with elevated cortisol level with normal 24 hour cortisol. Patient to undergo saliva testing, but has not completed due conflict with directions to do during a day without increased stress * Trop negative * AM Cortisol wnl * prp am (2) Epigastric abdominal pain: * U/S RUQ with mod/marked fatty liver, heterogeneity of pancreas. Lipase 209 and then decreased after that * Patient with history of hiatal hernia- was supposed to have repaired, but was supposed to strengthen abdominal muscles prior to surgery--never followed through--> CT chest negative --? sliding hiatal hernia causing intermittent pain>? * *Also, patient with medical marijuana - has been on tincture for past two years - ??cyclic vomiting contributing? Provided capsaicin cream however patient was using on lower back not abdomen * CT/Abd Pelvis, CT Chest without evidence of acute process * Continue PPI - change pantoprazole to patient's omeprazole as patient reports it works better for her * continue Reglan 10mg IV q 8 hours as needed for abdominal fullness/pain * Phenergan 12.5mg PO prn * EGD with Dr. Alonso showing hiatal hernia - recommends surgical consult. Dr. Gonzalez consulted * biopsies taken, gastric polyps removed - follow path * barium swallow ordered by Dr. Gonzalez - no hernia shown. Surgery will discuss with Dr. Wallace but at this point not likely to perform surgery (3) Dyslipidemia: * Continue statin * Lipid panel - cholesterol 230, HLD 38 * Elevated triglycerides at 478 (4) Hypothyroidism: * Chronic. Stable * TSH=2.32 * Continue Synthroid 112 mcg po daily -- patient scheduled six days a week, but will continue daily dosing. Patient states she "always feels better < 2.0" (5) GERD (gastroesophageal reflux disease): * Chronic. Increased pain as above. No melena/hematochezia * Continue PPI * Maalox PRN * Avoid Zofran d/t hx prolonged QT (6) Hypertension: * Blood pressures labile * Continue Lisinopril 10mg po qHS * Continue Metoprolol 25mg po BID (7) Gastroparesis: * Chronic. Typically managed with careful diet. Patient feels that her gastroparesis may be causing some of her abdominal discomfort. She is unable to tolerate Zofran secondary to prolonged QT interval. She is typically able to tolerate Reglan. * Reglan * Monitor QT interval * Per patient, improved abdominal pain with Phenergan- will allow 12.5mg prn (8) Panic disorder with agoraphobia: * Chronic. Patient feels that her symptoms are fairly well controlled at present to admitting hospitalist. Patient with longstanding history of anxiety as well as admissions to [facility]. * Continue Effexor 37.5mg po daily -- may be contributing to prolonged QT (most recent QTc on telemetry strip 466ms)--> per previous inpatient note, patient was to have effexor dosage discussed with PCP * continue Clonazepam 0.5mg TID per PDMP records (9) Chest pain: * Patient with occasional chest discomfort, atypical. Does not seem to be exertional in nature. She has history of HTN, HLP, DM and FH of premature CAD. Negative stress test in 2016 * Cardiology consulted * no complaints of chest pain today (10) Diabetes: * Blood sugars have been somewhat elevated * Hgb A1c=9.5 in August 2017 - A1c here now improved at 6.9 * ss, increased Lantus to 12 units BID (11) Prolonged QT interval: * Patient with longstanding history of prolonged QT * Per previous notes, patient with qtc 500ms * Tele with NSR 70-80s, PVCs/PACs (12) Fatty liver: Moderate fatty liver on imaging - will need lifestyle counseling A1c has improved to 6.9 Elevated triglycerides (13) DVT prophylaxis: * SCDs Disposition - awaiting surgical consult Supervising Physician Co-Signing Physician Notes I personally evaluated the patient and agree with the findings as documented by ARELY Urena Exam: abd: soft, nt, nd Subjective Ms. Marcum is very frustrated by her continuing abdominal discomfort. She has some nausea but no vomiting. She reports that her chest/abdominal pain feels like having something "shoved up" into her diaphragm. She is concerned about being discharged from the hospital without a solution to her discomfort. ROS Constitutional: no chills, aches, sweats or fever Respiratory: no sob,cough, sputum, or wheezing Cardiac: no chest pain, palpitations, edema, orthopnea or lightheadedness GI: see HPI : no dysuria or hesitancy Extremities: no joint pain or weakness Skin: no rash All other systems reviewed and negative Physical Exam Physical Exam: General: no distress Eyes: normal inspection, PERLL Respiratory: chest non tender, clear to auscultation, normal breath sounds, no respiratory distress, no accessory muscle use Cardiac: regular rate and rhythm, no rub or gallop, no murmur, no edema, no jvd GI/: active bowel sounds, epigastric abdominal tenderness, soft, non distended Extremities: normal range of motion, normal strength, non tender Neuro/Psych: alert and oriented x 3, normal mood and affect Skin: normal color, dry Results & Data Vital Signs (Past 12 Hours) Vital Signs Temp Pulse Pulse Resp BP Pulse Ox 07/20/19 11:30 36.9 C 60 20 118/63 97 07/20/19 08:00 36.6 C 73 137/72 97 07/20/19 07:27 69 07/20/19 04:27 36.7 C 82 20 90/51 L 93 07/20/19 01:36 75 PG Care Time/CCT Total # of Minutes Spent Total Time Spent with Patient: Total time spent is greater than 50% in coordination of care (as documented) at patient's floor/unit and/or counseling patient: (1) Diabetes Diabetes mellitus complication status: without complication Diabetes mellitus ferry terminal agent insulin use: with assisted use Diabetes mellitus type: type 2 Qualified Code(s): E11.9 - Type 2 diabetes mellitus without complications; Z79.4 - senior care (current) use of insulin (2) Hypothyroidism Hypothyroidism type: unspecified Qualified Code(s): E03.9 - Hypothyroidism, unspecified (3) GERD (gastroesophageal reflux disease) Esophagitis presence: esophagitis presence not specified Qualified Code(s): K21.9 - Gastro-esophageal reflux disease without esophagitis (4) Chest pain Chest pain type: unspecified Qualified Code(s): R07.9 - Chest pain, unspecified (5) Hypertension Hypertension type: essential hypertension Qualified Code(s): I10 - Essential (primary) hypertension
--- NOTE | 2019-07-20 14:58 | Progress Note ---
DATE: 07/20/2019 HISTORY OF PRESENT ILLNESS: Ms. Marcum was seen today. She has some reflux symptoms and was noted to have a hiatal hernia on her upper endoscopy. We were asked to see her for possible surgical repair. There is no evidence of esophagitis. CT scan and a barium swallow showed no evidence of a hiatal hernia. The patient has multiple symptoms including bilateral costal margin pain, subxiphoid pain, pain in her right shoulder radiating down her arm, she does get a cough at night as she feels that she is "full of fluid." She also gets fullness in her subxiphoid area which pushes upward into her chest, making it "hard to breathe." She also states that her pills and other medications gets stuck in her lower chest area pointing to her sternum. I had a long talk with Ms. Marcum. I have explained the fact that she has a history of gastroparesis could account for many of the symptoms that we are seeing. Quite frankly, I would like to discuss this case with Dr. Tadeo Wallace who knows this patient. I do not think there is enough evidence here to offer her a fundoplication. I have recommended that she be discharged. I will see her back in the office in a month or so that we can discuss this more fully. SANTOSH
--- NOTE | 2019-07-20 16:03 | Discharge Summary ---
Date of Service July 20, 2019 I examined and seen patient with ARE[facility] Urena and agree with assessment/plan and discharge summary. Admission HPI Per Admitting Provider Ulysses Marcum is a 54yo C female with multiple medical problems, notably HTN, HLP, DM, GERD, Hypothyroid, QT prolongation and Anxiety presenting with symptomatic palpitations. She reports having episodes of palpitations fairly consistently for the last year. She noted an increase in frequency and duration of palpitations since July 02. She reports frequent episodes of pain that starts in her upper abdomen followed by "foggy" thinking, nausea, heart racing and dizziness. These episodes typically occur every other day and occur multiple times per day. They typically last less than 1 minute. Non- exertional, non-positional. No instigating or relieving factors identified. No syncope. Patient with occasional left sided chest discomfort, episodic, non-exertional. 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 She occasionally experiences chest discomfort with exertion, climbing stairs or playing with the dogs. Also with exertional SOB on occasion. No personal history of CAD. As above, HTN/HLP/DM and strong family history of CAD - sisters x 2 with heart disease in their 40's. Patient has never had a heart attack or cardiac catheterization. She has longstanding history of prolonged QT interval. No history of CHF. She follows with Cardiology and was to have a Holter monitor for diagnosis of her palpitations. In the ER she was afebrile, hemodynamically stable. Dr. Gunn at bedside witnessed an episode of palpitations - patient reported feeling the episode come on, discomfort, diaphoretic. Dr. Gunn stated the patient seemed to be in bigeminy during the duration of the episode. Symptoms and bigeminy resolved spontaneously. Stress Test - 02/04/16 - Negative, target heart rate not achieved. CP present prior to exercise and remained throughout without worsening. Echo with normal LV size and function, EF of 55-60%, no WMA, mild LVH and MR Principal Diagnosis Hiatal hernia, palpitations Discharge Exam Constitutional WD/WN, vitals as above Respiratory normal respiratory effort, lungs clear to auscultation Cardiovascular RRR, no murmur, no edema Gastrointestinal (Abdomen) Inspection/Auscultation: abdomen normal to inspection and normal bowel sounds; abdomen not distended Percussion/Palpation: + abdomen tender (upper abdomen) and abdomen soft Musculoskeletal no cyanosis or clubbing, extremities motor strength 5/5 Skin no rashes, warm and dry Neurologic moves all extremities and awake Psychiatric Orientation: alert and oriented x 3 Affect: + angry affect Discharge Data Allergies Allergy/AdvReac Type Severity Reaction Status Date / Time homatropine Allergy Severe ANNAPHYLACTIC Verified 07/17/19 00:30 SHOCK hydrocodone Allergy Severe ANNAPHYLACTIC Verified 07/17/19 00:30 SHOCK erythromycin base Allergy Intermediate RASH Verified 07/17/19 00:30 Sulfa (Sulfonamide Allergy Intermediate RASH Verified 07/17/19 00:30 Antibiotics) methylprednisolone Allergy Mild RASH Verified 07/17/19 00:30 ondansetron Allergy Mild Cardiac Verified 07/17/19 00:30 symptoms hydromorphone AdvReac Intermediate confusion Verified 07/17/19 00:30 Consultations 07/17/19 02:23 ED Decision to Admit Stat 07/17/19 04:22 Consult Cardiology Routine 07/17/19 11:12 Consult Gastroenterology Routine 07/19/19 13:53 Consult Thoracic Surgery Routine Procedures Performed Operation Date: 07/19/19 09:15 Actual Procedures p EGD Polypectomy - Primo Alonso MD Ordered Studies 07/17/19 11:14 US gallbladder Routine 07/18/19 10:41 CT abd pelvis oral and IV con Routine CT chest w con Urgent 07/20/19 10:00 FL barium swallow Routine Hospital Course (1) Intermittent palpitations: * Patient with symptomatic palpitations, increasing in frequency and severity over the last 2 weeks. Witnessed bigeminy on monitor by ER physician during symptomatic episode. Patient with cardiac risk factors of HTN, HLP, DM, family history of premature CAD. * ECHO here - normal LV systolic function. No WMA. Mild LVH. Trace mitral regurgitation * Cardiology consulted - does not think nausea and abdominal pain is caused by her PVCs-continues to have nausea/abd pain in absence of PVCs * Metoprolol increased by cardiology to 37.5 mg by cardiology * Avoid QT prolonging agents - EKG with QTC 524ms on ECG * TSH 2.32 * Per cardiology - keep mag above 2 and potassium above 4 - will continue magnesium supplement, potassium has been within acceptable range without supplementation * Per endocrinology notes, patient with elevated cortisol level with normal 24 hour cortisol. Patient to undergo saliva testing, but has not completed due conflict with directions to do during a day without increased stress * Trop negative * AM Cortisol wnl (2) Epigastric abdominal pain: * U/S RUQ with mod/marked fatty liver, heterogeneity of pancreas. Lipase 209 and then decreased after that * CT/Abd Pelvis, CT Chest without evidence of acute process * Continue PPI - change pantoprazole to patient's omeprazole as patient reports it works better for her * EGD with Dr. Alonso showing hiatal hernia - recommends surgical consult. Dr. Gonzalez consulted * biopsies taken, gastric polyps removed Pathology of gastric biopsy: A. STOMACH, ANTRUM, BIOPSY: - CHRONIC INACTIVE GASTRITIS - NEGATIVE FOR INTESTINAL METAPLASIA, DYSPLASIA AND MALIGNANCY - NEGATIVE FOR HELICOBACTER PYLORI ORGANISMS B. STOMACH, POLYPECTOMY: - FUNDIC GLAND POLYPS - NEGATIVE FOR DYSPLASIA AND MALIGNANCY * barium swallow ordered by Dr. Gonzalez - no hernia shown. He does not recommend surgery at this time. Would like to follow patient in two weeks. Patient would prefer to be referred to a tertiary care center. Will refer to [place] for surgical evaluation. Ms. Marcum has been referred to [facility] by Dr. Wallace in the past but did not wish to be seen by [facility] again because she feels they were dismissive of her due to her weight. (3) Dyslipidemia: * Continue statin * Lipid panel - cholesterol 230, HLD 38 * Elevated triglycerides at 478 * follow with pcp (4) Hypothyroidism: * Chronic. Stable * TSH=2.32 * Continue Synthroid 112 mcg po daily -- patient scheduled six days a week, but will continue daily dosing. Patient states she "always feels better < 2.0" (5) GERD (gastroesophageal reflux disease): * Chronic. Increased pain as above. No melena/hematochezia * Continue PPI * Maalox PRN * Avoid Zofran d/t hx prolonged QT (6) Hypertension: * Blood pressures labile * Continue Lisinopril 10mg po qHS * Metoprolol increased as above (7) Gastroparesis: * Chronic. Typically managed with careful diet. Patient feels that her gastroparesis may be causing some of her abdominal discomfort. She is unable to tolerate Zofran secondary to prolonged QT interval. She is typically able to tolerate Reglan. * Reglan provided inpatient * Monitor QT interval (8) Panic disorder with agoraphobia: * Chronic. Patient feels that her symptoms are fairly well controlled at present to admitting hospitalist. Patient with longstanding history of anxiety as well as admissions to [facility]. * Continue Effexor 37.5mg po daily -- may be contributing to prolonged QT (most recent QTc on telemetry strip 466ms)--> per previous inpatient note, patient was to have effexor dosage discussed with PCP * continue Clonazepam 0.5mg TID per PDMP records (9) Chest pain: * Patient with occasional chest discomfort, atypical. Does not seem to be exertional in nature. She has history of HTN, HLP, DM and FH of premature CAD. Negative stress test in 2016 * Cardiology consulted - no further workup * no complaints of chest pain today (10) Diabetes: * Blood sugars have been somewhat elevated * Hgb A1c=9.5 in August 2017 - A1c here now improved at 6.9 * ss, insulin glargine (11) Prolonged QT interval: * Patient with longstanding history of prolonged QT * Per previous notes, patient with qtc 500ms * Tele with NSR 70-80s, PVCs/PACs (12) Fatty liver: Moderate fatty liver on imaging - follow up with pcp A1c has improved to 6.9 Elevated triglycerides (13) DVT prophylaxis: * SCDs Disposition - home Total Time Total Time Spent Total Time Spent (In Minutes): greater than 30 minutes Discharge Plan Discharge Items Patient Disposition: Home - Self-Care Reason For Visit: PALPITATIONS Discharge Diagnosis: Hiatal hernia, palpitations Activity: Resume your previous activity Activity Comment: gradually as tolerated Non-emergency contact: Primary Care Provider Call non-emergency contact if: you have any medication questions, your symptoms worsen, your pain is not controlled and you have a fever Follow-up/Referrals: [facility] [Provider Group] (Please, follow up with [facility] in [place]. *A nurse from this office is supposed to contact you with the details. If you have any questions, call their office at [phone].) Marcie Hernández CRNP [Primary Care Provider] - 07/22/19 10:30 am (Please, follow up at ARELY Hernández's office with her associate, Dr. Romie Guerrero, on July 22 at 10:30 am. *If you need to change this appointment, call their office at [phone].) Diet: Regular Addtl Attending Provider Instructions: Intermittent palpitations: You did not have any dangerous arrhythmias while on the nuclear monitoring technician. An echocardiogram (ultrasound of your heart) indicated that you had normal pumping function of your heart without any signs of injury. Your troponin, which is can indicate cardiac injury if elevated, was normal. Your EKG showed your prolonged QT interval of which you are aware. - Metoprolol was increased by cardiology to 37.5 mg - please discuss your antidepressant medication with your primary care provider as it can prolong the QT interval - cardiology recommends that you keep your magnesium and potassium levels at the upper end of normal to help control your palpitations. You should continue your magnesium supplements. Your potassium level was in this range, you should focus on eating foods with potassium to keep it there. Epigastric abdominal pain: You had an upper right quadrant ultrasound, CT of your abdomen and pelvis and CT of your chest all without any acute process shown. You also had an EGD which showed a hiatal hernia. You should continue your omeprazole. Your biopsies from your EGD showed some chronic gastritis (inflammation) and no malignancy or H. Pylori (bacteria associated with ulcers) Dyslipidemia: Your lipid panel showed that your cholesterol is high as well as your triglycerides. Please follow up with your primary care provider concerning any medication adjustments they would like to make. Hypothyroidism: TS was 2.32 Continue Synthroid 112 mcg Fatty liver: Your imaging showed a moderate fatty liver Please read the enclosed information on managing a fatty liver and discuss interventions with your primary care provider Pending Studies at Discharge: No Stand-Alone Forms: My [facility], Smoking Cessation Medications and DC Order Prescriptions: New metoprolol tartrate 25 mg Tablet 37.5 mg PO BID Qty: 60 RF: 0 Continued lisinopril 10 mg Tablet 10 mg PO HS Qty: 0 RF: 0 omeprazole 40 mg Capsule,Delayed Release(Dr/Ec) 40 mg PO HS Qty: 0 RF: 0 hydrochlorothiazide 25 mg Tablet 25 mg PO DAILY PRN (Reason: Fluid Retention) Qty: 0 RF: 0 loratadine [Claritin] 10 mg Tablet 10 mg PO QAM Qty: 0 RF: 0 ferrous sulfate 325 mg (65 mg iron) Tablet 325 mg PO HS Qty: 0 RF: 0 levothyroxine 112 mcg Tablet 112 mcg PO QAM Qty: 0 RF: 0 cholecalciferol (vitamin D3) 1,000 unit Tablet 2,000 unit PO QAM Qty: 0 RF: 0 Linzess 145 mcg Capsule 145 mcg PO QAM Qty: 0 RF: 0 Basaglar KwikPen U-100 Insulin 100 unit/mL (3 mL) Insulin Pen 24 unit SUBCUT HS Qty: 0 RF: 0 magnesium oxide 400 mg (241.3 mg magnesium) Tablet 400 mg PO BID RF: 0 insulin lispro [Admelog U-100 Insulin lispro] 100 unit/mL Solution 1 sliding scale dose SUBCUT DIRECTED RF: 0 clonazepam 1 mg Tablet 0.5 mg PO TID RF: 0 simvastatin 40 mg Tablet 40 mg PO HS RF: 0 venlafaxine [Effexor XR] 37.5 mg Capsule,Extended Release 24hr 37.5 mg PO DAILY RF: 0 Discontinued metoprolol tartrate [Lopressor] 50 mg Tablet 25 mg PO BID Qty: 0 RF: 0 Discharge Orders: Discharge Order (Routine); Ordered 07/20/19 Ordered By: Yulia Singleton/Other Patient Handouts: NAFLD, ED Diet High Potassium Admission Data Admit Date/Time: 07/18/19 14:02 Attending Provider: Amina Salcido Admit Provider: Kerri Hanna Primary Care Provider: Marcie Hernández Other Providers: Kerri Hanna ; Chris Bowles ; Donell Mcgee ; Delphine Bolivar ; Pramod Gonzalez Other Interventions: Discharge Summary Assessment (RN) Last Done: 07/20/19 16:34 DC Date/Time DO NOT enter until pt leaves facility: 07/20/19 17:07
[2019-07-20] MEDS ORDERED: methylPREDNISolone 40 MG in SYRINGE 0 ML IV SCH (21:00)
== END 2019-07-20 17:07 | disposition home or self-care (01) | DRG 310 ==
LOC: ED 23:36 → 2N 23:36 → SUATTDRO 07-17 03:30 → 2N 07-17 03:58 → SUATTDRO 07-18 14:02 → 2N 07-20 01:33

== ENCOUNTER 2021-11-03 23:17 | Observation (INO) ==
[2021-11-03] MEDS ORDERED: HYDROmorphone INJ 1 MG/ML SYRINGE IV STA (23:58)
[2021-11-04 00:08] LABS: Hematocrit (blood only) 40.6 % (37-47); Hemoglobin 13.9 g/dL (12.0-16.0); Mean Corpuscular Hemoglobin 31.7 pg (25-34); Mean Corpuscular Hgb Conc 34.2 g/dL (32-36); Mean Corpuscular Volume 92.5 fL (80-100); Mean Platelet Volume 9.4 fL (7.4-10.4); Platelet Count 289 K/uL (130-400); RDW Standard Deviation 47.4 fL (36.4-46.3); Red Blood Count 4.39 M/uL (4.2-5.4); White Blood Count 8.25 K/uL (4.8-10.8)
--- NOTE | 2021-11-04 00:30 | Emergency Department Note ---
Impression & Plan Abdominal pain, left upper quadrant Admit to the [facility] GI consultation ED Provider Note NAME: LEANN LAZAR AGE: 56 SEX: F ARRIVES VIA: Walk-In INFORMANT: Patient ED PROVIDER(S): Gloria Gunn DO CHIEF COMPLAINT: Left upper quadrant abdominal pain PLAN: Disposition: Admit to the [facility] Condition: Stable MEDICAL DECISION MAKING: This is a 56-year-old female patient who presents to the emergency department with left upper quadrant abdominal pain. Laboratory studies were fairly unremarkable but the patient's pain was intractable and required multiple doses of IV Dilaudid to control her discomfort. The stat rad reading for the CT showed a questionable ileus in the left upper quadrant of the abdomen as a source of her pain. I consulted with general surgery and they evaluated the patient and recommended waiting for the [facility] radiologist to reread the CT scan. The reading from the [facility] radiologist was normal but the patient's pain remained intractable. I discussed the case with the [facility] hospitalist and they will evaluate the patient and consult gastroenterology for this patient. The patient does have history of gastroparesis secondary to her diabetes. This could be the source of her discomfort. Her pain was rather sudden in onset approximately 24 hours ago and was worse with food intake, movement and deep breathing. Triage Nursing notes reviewed and agree with them. Vital Signs: reviewed and remarkable for hypertension Differential diagnosis: Small bowel obstruction, pancreatitis, gastritis, hyperglycemia, ulcerative disease ER treatment provided: IV normal saline IV Dilaudid x5 Diagnostics interpreted by me: ECG: Normal sinus rhythm at a rate of [address] segment elevation or signs of ischemia. QTC was 505 ms. The patient has a known history of prolonged QTC. There was no signs of ectopy Cardiac Monitoring: Normal sinus rhythm at 82 Laboratory studies: See below Imaging studies: As per stat rad CT abdomen pelvis with contrast: Minimal right middle lobe atelectasis. Remainder of the lung bases are clear. Normal cardiac size. Left liver lobe low-attenuation lesion measuring 2.1 cm. Stable in the interval and therefore likely benign etiology such as a cyst or hemangioma. The remainder of the liver unremarkable. Normal gallbladder and biliary system. Normal pancreas, spleen, bilateral adrenal glands and kidneys. Minimal atherosclerotic disease of aorta otherwise normal aorta. Normal stomach. Focal loop of small bowel distended in the left upper abdomen up to 3 cm likely localized ileus. Remainder of the small bowel is unremarkable. Nonvisualized appendix was sutured by the cecum suggestive of previous appende ctomy. I remainder of the skin is unremarkable. Normal bladder. Anteverted uterus. Degenerative disease of the spine. No free fluid. CT scan was also read by our radiologist here Eddie Chowdary: See the report for more details. Consultations: Og Welch MD-General surgery HPI: 56/F arrives for evaluation of left upper quadrant abdominal pain. Patient describes worsening left upper quadrant abdominal pain throughout the day today. Patient states that the pain seems to get worse with eating solid food or with any kind of movement or deep breathing. She has since developed diaphoresis and nausea. The patient is an insulin-dependent diabetic and has noticed that her blood sugars have been increased over the past 2-3 days. ROS: See above HPI for pertinent positives & negatives. A total of 10 systems reviewed and were otherwise negative. PAST MEDICAL HISTORY:Insulin-dependent diabetes, hiatal hernia, gastroparesis, prolonged QT syndrome, thyroid dysfunction PAST SURGICAL HISTORY:See Below FAMILY HISTORY:See Below SOCIAL HISTORY:See Below HOME MEDICATIONS:See list ALLERGIES:See list VITALS:See Below PHYSICAL EXAMINATION: HEENT: Head - normocephalic and atraumatic Pupils are equal, round, and reactive to light. Extraocular eye muscles are intact, and sclera are anicteric. Nose - moist nasal mucosa without discharge. Mouth - moist buccal mucosa. Oropharynx is nonerythematous and there is no tonsillar exudate or edema noted. Neck: Supple; no cervical lymphadenopathy or thyromegaly Heart: Regular rate and rhythm. There is a normal S1 and S2 with no murmurs, clicks, or gallops appreciated. Lungs: Clear to auscultation bilaterally with no wheezes, rales, or rhonchi. Abdomen: Soft, exquisitely tender to palpation in the left upper quadrant with even light palpation. She has referred pain with palpation in the epigastrium that refers to the left upper quadrant Extremities: No evidence of cyanosis, clubbing, or edema. There are easily palpable peripheral pulses. Skin: warm and dry with good turgor and no rashes. ED COURSE: Times/Reassessments: 2330: The patient was evaluated in room B 10. A complete history and physical was performed. An order was placed for continuous cardiac monitoring. The patient was in a normal sinus rhythm at a rate of 82. A twelve-lead EKG was obtained. An IV lock was initiated and labs are drawn as above. The patient was given a milligram of IV Dilaudid for her pain. This gave her some relief of her discomfort. Patient went for CT scan of the abdomen pelvis which was interpreted by stat rad as above. Patient required multiple additional doses of IV Dilaudid for pain management. She was then placed on a normal saline drip and kept n.p.o. I consulted Dr. Welch from general surgery who evaluated the patient I kept the patient in the emergency department overnight until the CT scan was read by the [facility] radiologist. The patient remained with intractable abdominal pain and I discussed the case with the [facility] hospitalist group who will admit the patient to the hospital and consult with gastroenterology. Gloria Gunn, DO Past Med/Surg History Medical History Acquired deviated nasal septum Acute respiratory failure with hypoxia Claustrophobia Diabetes IDDM Diabetes type 1, controlled Dyslipidemia Family history of malignant neoplasm of breast in first degree relative Fatty liver Gastroparesis Hiatal hernia Hypertension Hypothyroidism Intermittent palpitations follows with Dr. Stout Long QT syndrome Lumbar radiculopathy + bulging discs Panic disorder with agoraphobia Uses medical marijuana PTSD (post-traumatic stress disorder) Surgical History History of ankle surgery RT History of delivery x4 History of colonoscopy History of cryosurgery cervix History of esophagogastroduodenoscopy (EGD) History of total adrenalectomy S/P appendectomy S/P epidural steroid injection S/P trigger finger release Left thumb trigger release (03/22/21): [facility] at [facility] Family History Sister Diabetes Breast cancer Renal failure Brother Trisomy 21 Diabetes Son Diabetes Grandfather (Maternal) Heart disease Father Pernicious anemia Other Hypertension No family history of adverse response to anesthesia Social History Smoking Status: Never smoker Tobacco Type: E-cigarettes / Vaping Second Hand Exposure: No; Hx Alcohol Use: Yes Alcohol type: beer and wine Preferred Language: Bahraini Communication Ability: Effective Primary Montessori Teacher Required: No Beliefs That Will Affect Care: None Current Living Situation: Spouse Feels Safe at Home: Yes Assistive Devices: Glasses Allergies Allergies Allergy/AdvReac Type Severity Reaction Status Date / Time homatropine Allergy Severe Anaphylactic Verified 11/04/21 02:51 Shock hydrocodone Allergy Severe Anaphylactic Verified 11/04/21 02:51 Shock erythromycin base Allergy Intermediate Rash Verified 11/04/21 02:51 Sulfa (Sulfonamide Allergy Intermediate Rash Verified 11/04/21 02:51 Antibiotics) methylprednisolone Allergy Mild Rash Verified 11/04/21 02:51 ondansetron Allergy Mild "Cardiac Verified 11/04/21 02:51 symptoms" gabapentin AdvReac Severe Hallucinati Verified 11/04/21 02:51 ons hydromorphone AdvReac Intermediate Confusion Verified 11/04/21 02:51 Home Meds Home Medications Medication Instructions Recorded Confirmed lisinopril 10 mg tablet 10 mg PO HS #0 11/12/14 11/04/21 hydrochlorothiazide 25 mg tablet 25 mg PO DAILY PRN #0 07/29/16 11/04/21 loratadine 10 mg tablet (Claritin) 10 mg PO QAM #0 07/29/16 11/04/21 ferrous sulfate 325 mg (65 mg 325 mg PO HS #0 08/09/16 11/04/21 iron) tablet cholecalciferol (vitamin D3) 25 2,000 unit PO QAM #0 09/01/17 11/04/21 mcg (1,000 unit) tablet levothyroxine 112 mcg tablet 112 mcg PO QAM #0 09/01/17 11/04/21 magnesium oxide 400 mg (241.3 mg 400 mg PO BID 04/06/19 11/04/21 magnesium) tablet fluticasone propionate 50 2 sprays INTNAS DAILY PRN ml 08/11/19 11/04/21 mcg/actuation nasal spray,suspension rosuvastatin 10 mg tablet 10 mg PO HS 02/16/20 11/04/21 venlafaxine 75 mg capsule,extended 75 mg PO QAM 02/16/20 11/04/21 release 24 hr Medical Marijuana 1 dose INHALATION UD 07/09/21 11/04/21 venlafaxine 37.5 mg tablet 37.5 mg PO QAM 08/24/21 11/04/21 insulin lispro 100 unit/mL 0 unit SUBCUT ACHS ml 09/28/21 11/04/21 subcutaneous solution (Admelog U-) clonazepam 1 mg tablet 1 mg PO TID 11/04/21 11/04/21 insulin glargine 100 unit/mL (3 38 unit SUBCUT HS 11/04/21 11/04/21 mL) subcutaneous pen (Lantus Solostar U-100 Insulin) Previous Rx's Medication Instructions Recorded metoprolol tartrate 25 mg tablet 37.5 mg PO BID #60 tab 07/20/19 ipratropium bromide 42 mcg (0.06 2 spray INTRANASAL BID #15 ml 01/05/21 %) nasal spray omeprazole 40 mg capsule,delayed 40 mg PO BID #60 cap 07/11/21 release linaclotide 145 mcg capsule 145 mcg PO QAM #90 cap 10/05/21 (Linzess) Results & Data (ED) Vital Signs Vital Signs - 24 hr 11/03/21 23:23 11/04/21 00:10 11/04/21 01:26 Temperature 36.5 C Temperature Source Temporal Artery Scan Pulse Rate 82 Pulse Rate [Finger] 86 Pulse Rate from SpO2 Sensor Respiratory Rate 20 20 Respiratory Effort / Characteristics Non-Labored Spontaneous Non-Labored Spontaneous Respiratory Depth Normal Normal Blood Pressure 169/74 H Blood Pressure [Right Arm] 147/85 H Blood Pressure Mean 105 Blood Pressure Mean [Right Arm] 105 Blood Pressure Position Sitting Pulse Oximetry 96 97 97 Oxygen Delivery Method Room Air Room Air Room Air Sepsis Recent Fever Within 48 Hours No Sepsis New/Unexplained Change in Mental Status No Sepsis Action Taken by Nursing No Action Required 11/04/21 01:30 11/04/21 02:00 11/04/21 02:30 Temperature Temperature Source Pulse Rate Pulse Rate [Finger] Pulse Rate from SpO2 Sensor 77 78 86 Respiratory Rate 18 16 20 Respiratory Effort / Characteristics Respiratory Depth Blood Pressure 132/93 137/75 149/76 H Blood Pressure [Right Arm] Blood Pressure Mean 106 95 100 Blood Pressure Mean [Right Arm] Blood Pressure Position Pulse Oximetry 94 94 95 Oxygen Delivery Method Room Air Room Air Room Air Sepsis Recent Fever Within 48 Hours Sepsis New/Unexplained Change in Mental Status Sepsis Action Taken by Nursing 11/04/21 03:00 11/04/21 03:30 11/04/21 04:00 Temperature Temperature Source Pulse Rate Pulse Rate [Finger] Pulse Rate from SpO2 Sensor 87 83 79 Respiratory Rate 20 20 22 Respiratory Effort / Characteristics Respiratory Depth Blood Pressure 152/74 H 156/74 H 161/80 H Blood Pressure [Right Arm] Blood Pressure Mean 100 101 107 Blood Pressure Mean [Right Arm] Blood Pressure Position Pulse Oximetry 96 94 96 Oxygen Delivery Method Room Air Room Air Room Air Sepsis Recent Fever Within 48 Hours Sepsis New/Unexplained Change in Mental Status Sepsis Action Taken by Nursing 11/04/21 04:30 11/04/21 05:00 11/04/21 05:30 Temperature Temperature Source Pulse Rate 78 Pulse Rate [Finger] Pulse Rate from SpO2 Sensor 85 Respiratory Rate 20 22 20 Respiratory Effort / Characteristics Respiratory Depth Blood Pressure 159/82 H 156/89 H 150/64 H Blood Pressure [Right Arm] Blood Pressure Mean 107 111 92 Blood Pressure Mean [Right Arm] Blood Pressure Position Pulse Oximetry 96 96 95 Oxygen Delivery Method Room Air Room Air Room Air Sepsis Recent Fever Within 48 Hours Sepsis New/Unexplained Change in Mental Status Sepsis Action Taken by Nursing 11/04/21 06:00 11/04/21 06:30 11/04/21 07:00 Temperature Temperature Source Pulse Rate 82 Pulse Rate [Finger] Pulse Rate from SpO2 Sensor 82 83 Respiratory Rate 20 20 Respiratory Effort / Characteristics Respiratory Depth Blood Pressure 141/63 H 145/79 H 159/79 H Blood Pressure [Right Arm] Blood Pressure Mean 89 101 105 Blood Pressure Mean [Right Arm] Blood Pressure Position Pulse Oximetry 95 95 93 Oxygen Delivery Method Room Air Room Air Sepsis Recent Fever Within 48 Hours Sepsis New/Unexplained Change in Mental Status Sepsis Action Taken by Nursing 11/04/21 07:29 11/04/21 07:30 11/04/21 07:31 Temperature Temperature Source Pulse Rate Pulse Rate [Finger] Pulse Rate from SpO2 Sensor 72 80 Respiratory Rate Respiratory Effort / Characteristics Respiratory Depth Blood Pressure 140/73 Blood Pressure [Right Arm] Blood Pressure Mean 95 Blood Pressure Mean [Right Arm] Blood Pressure Position Pulse Oximetry 95 96 Oxygen Delivery Method Sepsis Recent Fever Within 48 Hours Sepsis New/Unexplained Change in Mental Status Sepsis Action Taken by Nursing 11/04/21 08:00 11/04/21 08:01 11/04/21 08:25 Temperature Temperature Source Pulse Rate Pulse Rate [Finger] Pulse Rate from SpO2 Sensor 82 87 84 Respiratory Rate Respiratory Effort / Characteristics Respiratory Depth Blood Pressure 153/71 H Blood Pressure [Right Arm] Blood Pressure Mean 98 Blood Pressure Mean [Right Arm] Blood Pressure Position Pulse Oximetry 91 95 96 Oxygen Delivery Method Sepsis Recent Fever Within 48 Hours Sepsis New/Unexplained Change in Mental Status Sepsis Action Taken by Nursing 11/04/21 08:30 Temperature Temperature Source Pulse Rate Pulse Rate [Finger] Pulse Rate from SpO2 Sensor 79 Respiratory Rate Respiratory Effort / Characteristics Respiratory Depth Blood Pressure 144/71 H Blood Pressure [Right Arm] Blood Pressure Mean 95 Blood Pressure Mean [Right Arm] Blood Pressure Position Pulse Oximetry 94 Oxygen Delivery Method Sepsis Recent Fever Within 48 Hours Sepsis New/Unexplained Change in Mental Status Sepsis Action Taken by Nursing Laboratory Data Result diagrams: 11/03/21 00:00 11/03/21 00:00 Lab Results 11/03/21 11/03/21 11/04/21 Range/Units 00:00 00:00 04:43 WBC 8.25 (4.8-10.8) K/uL RBC 4.39 (4.2-5.4) M/uL Hgb 13.9 (12.0-16.0) g/dL Hct 40.6 (37-47) % MCV 92.5 (80-100) fL MCH 31.7 (25-34) pg MCHC 34.2 (32-36) g/dL RDW Std Deviation 47.4 H (36.4-46.3) fL RDW Coeff of [place] 14.0 (11.5-14.5) % Plt Count 289 (130-400) K/uL MPV 9.4 (7.4-10.4) fL Neutrophils % (Manual) 24.6 % Lymphocytes % (Manual) 45.6 % Reactive Lymphs % (Man) 20.2 % Monocytes % (Manual) 7.0 % Eosinophils % (Manual) 2.6 % Neutrophils # (Manual) 2.03 (1.4-6.5) K/uL Total Absolute Neuts 2.03 (1.4-6.5) K/uL Lymphocytes # (Manual) 3.76 H (1.2-3.4) K/uL Reactive Lymphs # 1.67 K/uL Total Abs Lymphocytes 5.43 H (1.2-3.4) K/uL Monocytes # (Manual) 0.58 (0.11-0.59) K/uL Eosinophils # (Manual) 0.21 (0-0.5) K/uL RBC Morphology Unremarkable Sodium 139 (136-145) mmol/L Potassium 4.1 (3.5-5.1) mmol/L Chloride 108 H (98-107) mmol/L Carbon Dioxide 26 (21-32) mmol/L Anion Gap 5 (3-11) BUN 14 (6-23) mg/dl Creatinine 0.77 (0.6-1.2) mg/dl Est Cr Clr Drug Dosing 97.1 ml/min Est GFR ( Amer) 100.7 ml/min Est GFR (Non-Af Amer) 86.9 ml/min BUN/Creatinine Ratio 18.2 (10-20) Glucose 93 (70-99(Fasting)) mg/dl Lactate 1.2 (0.4-2.0) mmol/L Calcium 9.5 (8.5-10.1) mg/dl Total Bilirubin 0.5 (0.2-1.0) mg/dl AST 17 (13-39) U/L ALT 19 (7-52) U/L Alkaline Phosphatase 62 (34-104) U/L Troponin I < 0.03 (0-0.04) ng/ml Total Protein 7.2 (6.0-8.3) gm/dl Albumin 4.2 (3.4-5.0) gm/dl Globulin 3.0 (2.5-4.0) gm/dl Albumin/Globulin Ratio 1.4 (0.9-2) Lipase 27 (11-82) U/L Administered Medications Sodium Chloride (Nss) 500 mls @ 125 mls/hr IV .Q4H [facility] Stop: 12/04/21 04:44 Last Admin: 11/04/21 05:46 Dose: 125 mls/hr Documented by: [id number] Discontinued Medications Hydromorphone HCl (Hydromorphone Inj 1 Mg/Ml Syringe) 1 mg IV NOW STA Stop: 11/03/21 23:59 Last Admin: 11/04/21 00:04 Dose: 1 mg Documented by: [id number] Hydromorphone HCl (Hydromorphone Inj 1 Mg/Ml Syringe) 1 mg IV NOW STA Stop: 11/04/21 01:31 Last Admin: 11/04/21 01:38 Dose: 1 mg Documented by: [id number] Hydromorphone HCl (Hydromorphone Inj 1 Mg/Ml Syringe) 1 mg IV NOW STA Stop: 11/04/21 03:31 Last Admin: 11/04/21 03:38 Dose: 1 mg Documented by: [id number] Hydromorphone HCl (Hydromorphone Inj 1 Mg/Ml Syringe) 1 mg IV NOW STA Stop: 11/04/21 05:47 Last Admin: 11/04/21 05:57 Dose: 1 mg Documented by: [id number] Hydromorphone HCl (Hydromorphone Inj 1 Mg/Ml Syringe) 1 mg IV NOW STA Stop: 11/04/21 08:37 Last Admin: 11/04/21 08:53 Dose: 1 mg Documented by: [id number] Sodium Chloride (Nss) 500 mls @ 999 mls/hr IV .Q31M ONE Stop: 11/04/21 05:01 Last Infusion: 11/04/21 05:45 Dose: 0 mls/hr Documented by: [id number] Admin: 11/04/21 04:44 Dose: 999 mls/hr Documented by: [id number] Ioversol (Optiray 320 100ml) 94 ml IV ONCE ONE Stop: 11/04/21 01:32 Last Admin: 11/04/21 01:31 Dose: 94 ml Documented by: [id number] Imaging Data Radiologist's Impression: Abdomen/Pelvis CT 11/03/21 23:57 CT abd pelvis IV con only CLINICAL HISTORY: LUQ pain TECHNIQUE: Helical axial images of the abdomen and pelvis were obtained and displayed. Automated dose lowering techniques and/or adjustment according to patient size were utilized for this exam. This exam was performed with intravenous contrast. COMPARISON: Comparison is made to CT abdomen pelvis 07/18/2019 FINDINGS: Lower chest: No acute abnormality Liver: Hepatic hypodensity is seen measuring 16 mm and with greater than simple fluid attenuation, but stable in size from prior exam. Gallbladder and biliary tree: No calcified gallstones. Normal caliber wall. No intra- or extrahepatic biliary ductal dilation. Pancreas: Unremarkable, no focal lesions. Spleen: Unremarkable. Adrenals: Unremarkable. Kidneys and ureters: Unremarkable. Bladder: Unremarkable. Reproductive organs: Unremarkable. Bowel: Unremarkable. Patient is status post appendectomy. Lymph nodes Retroperitoneal: Unremarkable. Mesenteric: Unremarkable. Pelvic: Unremarkable. Peritoneum: Normal. Vessels: Minimal atherosclerotic disease is seen. Abdominal wall: A fat-containing umbilical hernia is seen. Bones: Unremarkable. IMPRESSION: 1. No evidence of acute abnormality. 2. 2.1 cm hypoattenuating lesion in the liver is stable from prior exam but does not definitely represent a cyst. If not previously evaluated, nonemergent MRI liver protocol can be performed. ACT 112: Negative or not required by law. Electronically signed by: Alex Ryder M.D. 11/04/2021 8:51 AM Discharge Plan Visit Data Chief Complaint: GI Assessment Stated Complaint: LUQ ABD PAIN,NAUSEA ED Provider: Gloria Gunn Discharge Problem: Abdominal pain, left upper quadrant Forms Stand Alone Forms: [facility] Prescriptions Prescriptions: No Action lisinopril 10 mg Tablet 10 mg PO HS Qty: 0 RF: 0 hydrochlorothiazide 25 mg Tablet 25 mg PO DAILY PRN (Reason: Fluid Retention) Qty: 0 RF: 0 loratadine [Claritin] 10 mg Tablet 10 mg PO QAM Qty: 0 RF: 0 ferrous sulfate 325 mg (65 mg iron) Tablet 325 mg PO HS Qty: 0 RF: 0 levothyroxine 112 mcg Tablet 112 mcg PO QAM Qty: 0 RF: 0 cholecalciferol (vitamin D3) 1,000 unit Tablet 2,000 unit PO QAM Qty: 0 RF: 0 omeprazole 40 mg capsule,delayed release(DR/EC) 40 mg PO BID Qty: 60 RF: 3 Linzess 145 mcg capsule 145 mcg PO QAM Qty: 90 RF: 3 ipratropium bromide 42 mcg (0.06 %) spray,non-aerosol 2 spray intranasal BID Qty: 15 RF: 11 fluticasone propionate 50 mcg/actuation spray,suspension 2 sprays INTNAS DAILY PRN (Reason: Congestion) RF: 0 magnesium oxide 400 mg (241.3 mg magnesium) Tablet 400 mg PO BID RF: 0 insulin lispro [Admelog U-100 Insulin lispro] 100 unit/mL solution 0 unit SUBCUT ACHS RF: 0 metoprolol tartrate 25 mg Tablet 37.5 mg PO BID Qty: 60 RF: 0 venlafaxine 75 mg capsule,extended release 24hr 75 mg PO QAM RF: 0 rosuvastatin 10 mg tablet 10 mg PO HS RF: 0 Medical Marijuana 1 dose inhalation UD RF: 0 venlafaxine [Effexor] 37.5 mg Tablet 37.5 mg PO QAM RF: 0 clonazepam 1 mg tablet 1 mg PO TID RF: 0 Lantus Solostar U-100 Insulin 100 unit/mL (3 mL) insulin pen 38 unit SUBCUT HS RF: 0 Referrals Referrals: Marcie Hernández CRNP [Primary Care Provider] -
[2021-11-04 00:35] LABS: Troponin I < 0.03 ng/ml (0-0.04)
[2021-11-04 00:38] LABS: Alanine Aminotransferase 19 U/L (7-52); Albumin Globulin Ratio 1.4 (0.9-2); Albumin Level 4.2 gm/dl (3.4-5.0); Alkaline Phosphatase 62 U/L (34-104); Anion Gap 5 (3-11); Aspartate Aminotransferase 17 U/L (13-39); BUN Creatinine Ratio 18.2 (10-20); Bilirubin,Total 0.5 mg/dl (0.2-1.0); Blood Urea Nitrogen 14 mg/dl (6-23); Calcium 9.5 mg/dl (8.5-10.1); Carbon Dioxide 26 mmol/L (21-32); Chloride 108 mmol/L (98-107); Creatinine Clr Calc Pharmacy 97.1 ml/min; Est GFR (African American) 100.7 ml/min; Est GFR (Non-African American) 86.9 ml/min; Glucose 93 mg/dl (70-99(Fasting)); Lipase 27 U/L (11-82); Potassium 4.1 mmol/L (3.5-5.1); Sodium 139 mmol/L (136-145); Total Protein 7.2 gm/dl (6.0-8.3)
[2021-11-04 01:08] LABS: ALC (manual) 5.43 K/uL (1.2-3.4); ANC (manual) 2.03 K/uL (1.4-6.5); Eosinophils # (manual) 0.21 K/uL (0-0.5); Eosinophils % (manual) 2.6 %; Lymphocytes # (manual) 3.76 K/uL (1.2-3.4); Lymphocytes % (manual) 45.6 %; Monocytes # (manual) 0.58 K/uL (0.11-0.59); Neutrophils # (manual) 2.03 K/uL (1.4-6.5); Neutrophils % (manual) 24.6 %; RBC Morphology Unremarkable; Reactive Lymphocytes # (manual) 1.67 K/uL; Reactive Lymphocytes % (manual) 20.2 %
[2021-11-04] MEDS ORDERED: HYDROmorphone INJ 1 MG/ML SYRINGE IV STA ×4 (01:30→08:36)
[2021-11-04] MEDS ORDERED: OPTIRAY 320 100ml IV ONE (01:31)
[2021-11-04] MEDS ORDERED: SODIUM CHLORIDE 0.9% 500 ML IV ONE (04:31)
[2021-11-04] MEDS: SODIUM CHLORIDE 0.9% 500 ML IV SCH ×4 (05:46→20:28)
--- NOTE | 2021-11-04 08:52 | CT Scan Report ---
CT abd pelvis IV con only CLINICAL HISTORY: LUQ pain TECHNIQUE: Helical axial images of the abdomen and pelvis were obtained and displayed. Automated dose lowering techniques and/or adjustment according to patient size were utilized for this exam. This e xam was performed with intravenous contrast. COMPARISON: Comparison is made to CT abdomen pelvis 07/18/2019 FINDINGS: Lower chest: No acute abnormality Liver: Hepatic hypodensity is seen measuring 16 mm and with greater than simple fluid attenuation, bu t stable in size from prior exam. Gallbladder and biliary tree: No calcified gallstones. Normal caliber wall. No intra- or extrahepatic biliary ductal dilation. Pancreas: Unremarkable, no focal lesions. Spleen: Unremarkable. Adrenals: Unremarkable. Kidneys and ureters: Unremarkable. Bladder: Unremarkable. Reproductive organs: Unremarkable. Bowel: Unremarkable. Patient is status post appendectomy. Lymph nodes Retroperitoneal: Unremarkable. Mesenteric: Unremarkable. Pelvic: Unremarkable. Peritoneum: Normal. Vessels: Minimal atherosclerotic disease is seen. Abdominal wall: A fat-containing umbilical hernia is seen. Bones: Unremarkable. IMPRESSION: 1. No evidence of acute abnormality. 2. 2.1 cm hypoattenuating lesion in the liver is stable from prior exam but does not definitely repr esent a cyst. If not previously evaluated, nonemergent MRI liver protocol can be performed. ACT 112: Negative or not required by law. Electronically signed by: Alex Ryder M.D. 11/04/2021 8:51 AM
--- NOTE | 2021-11-04 09:28 | History & Physical Report ---
Date of Service November 04, 2021 Assessment & Plan (1) Abdominal pain: Plan: Due to the patient's abdominal pain she went to the hospital. I suspect the patient has peptic ulcer disease or gastritis due to her heme positive stool and location of abdominal pain therefore we will proceed as follows: We will allow the patient clear liquids make her n.p.o. after midnight We will administer intravenous proton pump inhibitor We will make her n.p.o. after midnight We will provide gentle hydration IV fluid We will request a GI consultation for possible endoscopy tomorrow We will use SCDs for DVT prevention no chemical means due to heme positive stool and potential endoscopy tomorrow To be a level 1 full code History of Present Illness Chief Complaint: Abdominal pain Primary Care Provider: ARELY Shah This is a 56-year-old female who presents to [facility] secondary to abdominal pain. The patient says that she had some generalized abdominal pain that began approximately 4 to 5 days ago. She notes that over the ensuing several days her pain became worse. She says the pain is primary located in the left upper quadrant. She reports that the pain does not radiate. She notes that the pain is worse with certain movements and was particularly worse when driving to the hospital in her car. She notes that the pain was palliated with medicine that was administered by the emergency room physician. She did report nausea without vomiting and specifically denies hematemesis. She denies any diarrhea notes that she had a normal bowel movement earlier this morning. Patient notes that her most recent oral intake was an orange that she ate at approximately 10:00 PM last night but she has been drinking some water and eating ice chips throughout her stay in the emergency department In the emergency department the patient had labs and imaging which I independently reviewed. A CT scan of the abdomen and pelvis showed no evidence of acute abnormalities. Was noted to have a fat-containing umbilical hernia.Labs consisted of a CBC her white blood cell count was noted to be normal. Her hemoglobin and hematocrit were both within normal range. Her platelet count was noted to be within the normal range chemistry profile showed sodium, potassium, BUN, and creatinine were within normal range. A lactic acid level was not elevated. Cardiac enzymes were not elevated. A Covid test has been ordered and is pending. While in the emergency department with the presence of a female nurse office copy selector I performed a rectal exam that was markedly heme positive. Patient has been evaluated by Dr. Dave Welch of general surgery and he did not find any acute abnormalities necessitating surgical intervention. At the time of my interview the patient noted that her pain had improved slightly with medicines that were administered and she was in no distress. Allergies Allergy/AdvReac Type Severity Reaction Status Date / Time homatropine Allergy Severe Anaphylactic Verified 11/04/21 02:51 Shock hydrocodone Allergy Severe Anaphylactic Verified 11/04/21 02:51 Shock erythromycin base Allergy Intermediate Rash Verified 11/04/21 02:51 Sulfa (Sulfonamide Allergy Intermediate Rash Verified 11/04/21 02:51 Antibiotics) methylprednisolone Allergy Mild Rash Verified 11/04/21 02:51 ondansetron Allergy Mild "Cardiac Verified 11/04/21 02:51 symptoms" gabapentin AdvReac Severe Hallucinati Verified 11/04/21 02:51 ons hydromorphone AdvReac Intermediate Confusion Verified 11/04/21 02:51 Home Medications Medication Instructions Recorded Confirmed Type lisinopril 10 mg tablet 10 mg PO HS #0 11/12/14 11/04/21 History hydrochlorothiazide 25 mg tablet 25 mg PO DAILY PRN #0 07/29/16 11/04/21 History loratadine 10 mg tablet (Claritin) 10 mg PO QAM #0 07/29/16 11/04/21 History ferrous sulfate 325 mg (65 mg 325 mg PO HS #0 08/09/16 11/04/21 History iron) tablet cholecalciferol (vitamin D3) 25 2,000 unit PO QAM #0 09/01/17 11/04/21 History mcg (1,000 unit) tablet levothyroxine 112 mcg tablet 112 mcg PO QAM #0 09/01/17 11/04/21 History magnesium oxide 400 mg (241.3 mg 400 mg PO BID 04/06/19 11/04/21 History magnesium) tablet metoprolol tartrate 25 mg tablet 37.5 mg PO BID #60 tab 07/20/19 11/04/21 Rx fluticasone propionate 50 2 sprays INTNAS DAILY PRN ml 08/11/19 11/04/21 History mcg/actuation nasal spray,suspension rosuvastatin 10 mg tablet 10 mg PO HS 02/16/20 11/04/21 History venlafaxine 75 mg capsule,extended 75 mg PO QAM 02/16/20 11/04/21 History release 24 hr ipratropium bromide 42 mcg (0.06 2 spray INTRANASAL BID #15 ml 01/05/21 11/04/21 Rx %) nasal spray Medical Marijuana 1 dose INHALATION UD 07/09/21 11/04/21 History omeprazole 40 mg capsule,delayed 40 mg PO BID #60 cap 07/11/21 11/04/21 Rx release venlafaxine 37.5 mg tablet 37.5 mg PO QAM 08/24/21 11/04/21 History insulin lispro 100 unit/mL 0 unit SUBCUT ACHS ml 09/28/21 11/04/21 History subcutaneous solution (Admelog U-) linaclotide 145 mcg capsule 145 mcg PO QAM #90 cap 10/05/21 11/04/21 Rx (Linzess) clonazepam 1 mg tablet 1 mg PO TID 11/04/21 11/04/21 History insulin glargine 100 unit/mL (3 38 unit SUBCUT HS 11/04/21 11/04/21 History mL) subcutaneous pen (Lantus Solostar U-100 Insulin) Past Med/Surg History Medical History Acquired deviated nasal septum Acute respiratory failure with hypoxia Claustrophobia Diabetes IDDM Diabetes type 1, controlled Dyslipidemia Family history of malignant neoplasm of breast in first degree relative Fatty liver Gastroparesis Hiatal hernia Hypertension Hypothyroidism Intermittent palpitations follows with Dr. Stout Long QT syndrome Lumbar radiculopathy + bulging discs Panic disorder with agoraphobia Uses medical marijuana PTSD (post-traumatic stress disorder) Surgical History History of ankle surgery RT History of delivery x4 History of colonoscopy History of cryosurgery cervix History of esophagogastroduodenoscopy (EGD) History of total adrenalectomy S/P appendectomy S/P epidural steroid injection S/P trigger finger release Left thumb trigger release (03/22/21): MAC at [facility] Family History Sister Diabetes Breast cancer Renal failure Brother Trisomy 21 Diabetes Son Diabetes Grandfather (Maternal) Heart disease Father Pernicious anemia Other Hypertension No family history of adverse response to anesthesia Social History Smoking Status: Never smoker Tobacco Type: E-cigarettes / Vaping Second Hand Exposure: No; Hx Alcohol Use: No Hx Substance Use: No Preferred Language: Setswana Communication Ability: Effective 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 Warehouseman Required: No Beliefs That Will Affect Care: None Current Living Situation: Family Other Information That Helps Us Care for You: No Feels Safe at Home: Yes Safety Concerns: Feels Safe At This Time Assistive Devices: None Review of Systems Constitutional: no fever and no chills Eyes: no diplopia Ear, Nose, Mouth, Throat: no ear pain Respiratory: no cough and no dyspnea Cardiovascular: no chest pain Gastrointestinal: + abdominal pain and + nausea; no vomiting Genitourinary: no dysuria Musculoskeletal: no back pain Integumentary: no rash Neurologic: no localized weakness Physical Exam Constitutional: well developed and well nourished; no acute distress Eyes: no conjunctival abnormality ENMT: Ears: no external ear abnormality Neck: trachea midline Respiratory: normal respiratory effort, lungs clear to auscultation Gastrointestinal (Abdomen): Patient's abdomen is soft and nondistended. I do not appreciate any hernias on exam. The patient did have pain with palpation only in the left upper quadrant. I did not appreciate any masses organomegaly. There is no rebound tenderness or guarding. As noted in the HPI I did perform a rectal exam with the presence of a female nurse office copy selector which was noted to be heme positive. Musculoskeletal: No calf tenderness Skin: no rashes Neurologic: moves all extremities Psychiatric: A+Ox3, euthymic affect Results & Data Results & Data ([facility]) Vital Signs (Past 12 Hours) Vital Signs Temp Pulse Pulse Resp BP BP Pulse Ox 11/04/21 08:30 144/71 H 94 11/04/21 08:25 153/71 H 96 11/04/21 08:01 95 11/04/21 08:00 91 11/04/21 07:31 96 11/04/21 07:30 140/73 11/04/21 07:29 95 11/04/21 07:00 159/79 H 93 11/04/21 06:30 20 145/79 H 95 11/04/21 06:00 82 20 141/63 H 95 11/04/21 05:30 78 20 150/64 H 95 11/04/21 05:00 22 156/89 H 96 11/04/21 04:30 20 159/82 H 96 11/04/21 04:00 22 161/80 H 96 11/04/21 03:30 20 156/74 H 94 11/04/21 03:00 20 152/74 H 96 11/04/21 02:30 20 149/76 H 95 11/04/21 02:00 16 137/75 94 11/04/21 01:30 18 132/93 94 11/04/21 01:26 86 20 147/85 H 97 11/04/21 00:10 97 11/03/21 23:23 36.5 C 82 20 169/74 H 96 Supervising Physician Co-Signing Physician Notes I personally saw and examined the patient. I verified all maradiaga points and agree with Jeremy Barnes PA-C with the following exceptions and/or additions: 56 yo female admission for LUQ pain. Despite having gastroparesis she has never had a similar pain before. Possible small ileus on CT + food retention in stomach. FOB +ve. O/E Normal respiratory rate, LUQ pain on light palpation, no guarding or rebound tenderness, BS normal A/P LUQ pain - unclear etiology. Light touch suggests a MSK element. Food retained in stomach suggestive of gastroparesis although she reports this is a completely new pain for her. ?mild ileus from small bowel posterior to her stomach. Planning on endoscopy tomorrow. FOB positive - not anemic. Agree with pantoprazole 40mg IV BID pending EGD evaluation. Unclear if related to pain. Lactate normal - not suggestive of ischemia. PG Care Time/CCT Total # of Minutes Spent Total Time Spent with Patient: Total time spent is greater than 50% in coordination of care (as documented) at patient's floor/unit and/or counseling patient: Coding Level of Care Code INT OBSERVATION CARE 70M LVL 3 Diagnoses Abdominal pain R10.9
--- NOTE | 2021-11-04 09:54 | Surgery Consultation ---
Date of Consultation November 04, 2021 Assessment & Plan (1) Abdominal pain, left upper quadrant: (2) Diabetes type 1, controlled: 56-year-old woman with increasing left upper quadrant abdominal pain. Labs are normal, and CT scan of the abdomen pelvis is normal. She does have a history of gastroparesis and follows with Dr. Wallace from GI. She is being admitted to the hospital for pain control. There is no surgical indications at this time. Recommend GI consult for possible endoscopy or other evaluation given her gastroparesis. We will follow peripherally. Please call with any questions or concerns. History of Present Illness Reason for Consultation: Left upper quadrant pain Requesting Physician: Gloria Gunn MD Attending Physician: India Gunn MD History of Present Illness 56-year-old woman with a history of gastroparesis and irritable bowel syndrome p resents from home with increasing left upper quadrant abdominal pain. She states that this occurred yesterday, and has been getting worse. She is required multiple doses of narcotic medication. She denies fevers. She denies any vomiting. She does have some nausea but believes this is from the pain. She is on Linzess, and does not have normal bowel movements. She has not noted any blood in her stool. She did have one episode of tarry black stools. She denies any coffee-ground emesis or hematemesis. CT scan does not demonstrate any intra- abdominal abnormalities. White blood cell count is normal. Lactate is 1.2. Allergies Allergy/AdvReac Type Severity Reaction Status Date / Time homatropine Allergy Severe Anaphylactic Verified 11/04/21 02:51 Shock hydrocodone Allergy Severe Anaphylactic Verified 11/04/21 02:51 Shock erythromycin base Allergy Intermediate Rash Verified 11/04/21 02:51 Sulfa (Sulfonamide Allergy Intermediate Rash Verified 11/04/21 02:51 Antibiotics) methylprednisolone Allergy Mild Rash Verified 11/04/21 02:51 ondansetron Allergy Mild "Cardiac Verified 11/04/21 02:51 symptoms" gabapentin AdvReac Severe Hallucinati Verified 11/04/21 02:51 ons hydromorphone AdvReac Intermediate Confusion Verified 11/04/21 02:51 Home Medications Medication Instructions Recorded Confirmed Type lisinopril 10 mg tablet 10 mg PO HS #0 11/12/14 11/04/21 History hydrochlorothiazide 25 mg tablet 25 mg PO DAILY PRN #0 07/29/16 11/04/21 History loratadine 10 mg tablet (Claritin) 10 mg PO QAM #0 07/29/16 11/04/21 History ferrous sulfate 325 mg (65 mg 325 mg PO HS #0 08/09/16 11/04/21 History iron) tablet cholecalciferol (vitamin D3) 25 2,000 unit PO QAM #0 09/01/17 11/04/21 History mcg (1,000 unit) tablet levothyroxine 112 mcg tablet 112 mcg PO QAM #0 09/01/17 11/04/21 History magnesium oxide 400 mg (241.3 mg 400 mg PO BID 04/06/19 11/04/21 History magnesium) tablet metoprolol tartrate 25 mg tablet 37.5 mg PO BID #60 tab 07/20/19 11/04/21 Rx fluticasone propionate 50 2 sprays INTNAS DAILY PRN ml 08/11/19 11/04/21 History mcg/actuation nasal spray,suspension rosuvastatin 10 mg tablet 10 mg PO HS 02/16/20 11/04/21 History venlafaxine 75 mg capsule,extended 75 mg PO QAM 02/16/20 11/04/21 History release 24 hr ipratropium bromide 42 mcg (0.06 2 spray INTRANASAL BID #15 ml 01/05/21 11/04/21 Rx %) nasal spray Medical Marijuana 1 dose INHALATION UD 07/09/21 11/04/21 History omeprazole 40 mg capsule,delayed 40 mg PO BID #60 cap 07/11/21 11/04/21 Rx release venlafaxine 37.5 mg tablet 37.5 mg PO QAM 08/24/21 11/04/21 History insulin lispro 100 unit/mL 0 unit SUBCUT ACHS ml 09/28/21 11/04/21 History subcutaneous solution (Admelog U-) linaclotide 145 mcg capsule 145 mcg PO QAM #90 cap 10/05/21 11/04/21 Rx (Linzess) clonazepam 1 mg tablet 1 mg PO TID 11/04/21 11/04/21 History insulin glargine 100 unit/mL (3 38 unit SUBCUT HS 11/04/21 11/04/21 History mL) subcutaneous pen (Lantus Solostar U-100 Insulin) Patient History Medical History Acquired deviated nasal septum Acute respiratory failure with hypoxia Claustrophobia Diabetes IDDM Diabetes type 1, controlled Dyslipidemia Family history of malignant neoplasm of breast in first degree relative Fatty liver Gastroparesis Hiatal hernia Hypertension Hypothyroidism Intermittent palpitations follows with Dr. Stout Long QT syndrome Lumbar radiculopathy + bulging discs Panic disorder with agoraphobia Uses medical marijuana PTSD (post-traumatic stress disorder) Surgical History History of ankle surgery RT History of delivery x4 History of colonoscopy History of cryosurgery cervix History of esophagogastroduodenoscopy (EGD) History of total adrenalectomy S/P appendectomy S/P epidural steroid injection S/P trigger finger release Left thumb trigger release (03/22/21): MAC at [facility] Family History Sister Diabetes Breast cancer Renal failure Brother Trisomy 21 Diabetes Son Diabetes Grandfather (Maternal) Heart disease Father Pernicious anemia Other Hypertension No family history of adverse response to anesthesia Social History Smoking Status: Never smoker Tobacco Type: E-cigarettes / Vaping Second Hand Exposure: No; Hx Alcohol Use: Yes Alcohol type: beer and wine Preferred Language: [place] Communication Ability: Effective Business 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 Required: No Beliefs That Will Affect Care: None Current Living Situation: Spouse Feels Safe at Home: Yes Assistive Devices: Glasses Review of Systems Review of Systems: All systems reviewed & are unremarkable except as noted in HPI & below Physical Exam Constitutional: WD/WN, vitals as above Eyes: PERRL, conjunctivae normal, anicteric sclerae Neck: trachea midline, no thyromegaly Respiratory: normal respiratory effort; no respiratory distress and no labored breathing Cardiovascular: Rate/Rhythm: regular rate and regular rhythm Gastrointestinal (Abdomen): Inspection/Auscultation: abdomen normal to inspection; abdomen not distended Percussion/Palpation: + abdomen tender (Left upper quadrant) and abdomen soft; no guarding, abdomen not rigid, no hernia and no abdominal mass Musculoskeletal: Extremities: no cyanosis and no clubbing Skin: no rashes, warm and dry Psychiatric: A+Ox3, euthymic affect Results & Data ([facility]) Vital Signs (Past 12 Hours) Vital Signs Temp Pulse Pulse Resp BP BP Pulse Ox 11/04/21 08:30 144/71 H 94 11/04/21 08:25 153/71 H 96 11/04/21 08:01 95 11/04/21 08:00 91 11/04/21 07:31 96 11/04/21 07:30 140/73 11/04/21 07:29 95 11/04/21 07:00 159/79 H 93 11/04/21 06:30 20 145/79 H 95 11/04/21 06:00 82 20 141/63 H 95 11/04/21 05:30 78 20 150/64 H 95 11/04/21 05:00 22 156/89 H 96 11/04/21 04:30 20 159/82 H 96 11/04/21 04:00 22 161/80 H 96 11/04/21 03:30 20 156/74 H 94 11/04/21 03:00 20 152/74 H 96 11/04/21 02:30 20 149/76 H 95 11/04/21 02:00 16 137/75 94 11/04/21 01:30 18 132/93 94 11/04/21 01:26 86 20 147/85 H 97 11/04/21 00:10 97 11/03/21 23:23 36.5 C 82 20 169/74 H 96 Laboratory Results 11/04/21 11/04/21 11/04/21 Range/Units 09:42 09:20 04:43 WBC (4.8-10.8) K/uL RBC (4.2-5.4) M/uL Hgb (12.0-16.0) g/dL Hct (37-47) % MCV (80-100) fL MCH (25-34) pg MCHC (32-36) g/dL RDW Std Deviation (36.4-46.3) fL RDW Coeff of [place] (11.5-14.5) % Plt Count (130-400) K/uL MPV (7.4-10.4) fL Neutrophils % (Manual) % Lymphocytes % (Manual) % Reactive Lymphs % (Man) % Monocytes % (Manual) % Eosinophils % (Manual) % Neutrophils # (Manual) (1.4-6.5) K/uL Total Absolute Neuts (1.4-6.5) K/uL Lymphocytes # (Manual) (1.2-3.4) K/uL Reactive Lymphs # K/uL Total Abs Lymphocytes (1.2-3.4) K/uL Monocytes # (Manual) (0.11-0.59) K/uL Eosinophils # (Manual) (0-0.5) K/uL Blood Smear Review RBC Morphology Sodium (136-145) mmol/L Potassium (3.5-5.1) mmol/L Chloride (98-107) mmol/L Carbon Dioxide (21-32) mmol/L Anion Gap (3-11) BUN (6-23) mg/dl Creatinine (0.6-1.2) mg/dl Est Cr Clr Drug Dosing ml/min Est GFR ( Amer) ml/min Est GFR (Non-Af Amer) ml/min BUN/Creatinine Ratio (10-20) Glucose (70-99(Fasting)) mg/dl Lactate 1.2 (0.4-2.0) mmol/L Calcium (8.5-10.1) mg/dl Total Bilirubin (0.2-1.0) mg/dl AST (13-39) U/L ALT (7-52) U/L Alkaline Phosphatase (34-104) U/L Troponin I (0-0.04) ng/ml Total Protein (6.0-8.3) gm/dl Albumin (3.4-5.0) gm/dl Globulin (2.5-4.0) gm/dl Albumin/Globulin Ratio (0.9-2) Lipase (11-82) U/L POC Stool Occult Blood Positive A (Negative) SARS-CoV-2, RNA, NAAT Pending 11/03/21 11/03/21 Range/Units 00:00 00:00 WBC 8.25 (4.8-10.8) K/uL RBC 4.39 (4.2-5.4) M/uL Hgb 13.9 (12.0-16.0) g/dL Hct 40.6 (37-47) % MCV 92.5 (80-100) fL MCH 31.7 (25-34) pg MCHC 34.2 (32-36) g/dL RDW Std Deviation 47.4 H (36.4-46.3) fL RDW Coeff of [place] 14.0 (11.5-14.5) % Plt Count 289 (130-400) K/uL MPV 9.4 (7.4-10.4) fL Neutrophils % (Manual) 24.6 % Lymphocytes % (Manual) 45.6 % Reactive Lymphs % (Man) 20.2 % Monocytes % (Manual) 7.0 % Eosinophils % (Manual) 2.6 % Neutrophils # (Manual) 2.03 (1.4-6.5) K/uL Total Absolute Neuts 2.03 (1.4-6.5) K/uL Lymphocytes # (Manual) 3.76 H (1.2-3.4) K/uL Reactive Lymphs # 1.67 K/uL Total Abs Lymphocytes 5.43 H (1.2-3.4) K/uL Monocytes # (Manual) 0.58 (0.11-0.59) K/uL Eosinophils # (Manual) 0.21 (0-0.5) K/uL Blood Smear Review Pending RBC Morphology Unremarkable Sodium 139 (136-145) mmol/L Potassium 4.1 (3.5-5.1) mmol/L Chloride 108 H (98-107) mmol/L Carbon Dioxide 26 (21-32) mmol/L Anion Gap 5 (3-11) BUN 14 (6-23) mg/dl Creatinine 0.77 (0.6-1.2) mg/dl Est Cr Clr Drug Dosing 97.1 ml/min Est GFR ( Amer) 100.7 ml/min Est GFR (Non-Af Amer) 86.9 ml/min BUN/Creatinine Ratio 18.2 (10-20) Glucose 93 (70-99(Fasting)) mg/dl Lactate (0.4-2.0) mmol/L Calcium 9.5 (8.5-10.1) mg/dl Total Bilirubin 0.5 (0.2-1.0) mg/dl AST 17 (13-39) U/L ALT 19 (7-52) U/L Alkaline Phosphatase 62 (34-104) U/L Troponin I < 0.03 (0-0.04) ng/ml Total Protein 7.2 (6.0-8.3) gm/dl Albumin 4.2 (3.4-5.0) gm/dl Globulin 3.0 (2.5-4.0) gm/dl Albumin/Globulin Ratio 1.4 (0.9-2) Lipase 27 (11-82) U/L POC Stool Occult Blood (Negative) SARS-CoV-2, RNA, NAAT Diagnostic Findings CT abd pelvis IV con only CLINICAL HISTORY: LUQ pain TECHNIQUE: Helical axial images of the abdomen and pelvis were obtained and displayed. Automated dose lowering techniques and/or adjustment according to patient size were utilized for this exam. This exam was performed with intravenous contrast. COMPARISON: Comparison is made to CT abdomen pelvis 07/18/2019 FINDINGS: Lower chest: No acute abnormality Liver: Hepatic hypodensity is seen measuring 16 mm and with greater than simple fluid attenuation, but stable in size from prior exam. Gallbladder and biliary tree: No calcified gallstones. Normal caliber wall. No intra- or extrahepatic biliary ductal dilation. Pancreas: Unremarkable, no focal lesions. Spleen: Unremarkable. Adrenals: Unremarkable. Kidneys and ureters: Unremarkable. Bladder: Unremarkable. Reproductive organs: Unremarkable. Bowel: Unremarkable. Patient is status post appendectomy. Lymph nodes Retroperitoneal: Unremarkable. Mesenteric: Unremarkable. Pelvic: Unremarkable. Peritoneum: Normal. Vessels: Minimal atherosclerotic disease is seen. Abdominal wall: A fat-containing umbilical hernia is seen. Bones: Unremarkable. IMPRESSION: 1. No evidence of acute abnormality. 2. 2.1 cm hypoattenuating lesion in the liver is stable from prior exam but does not definitely represent a cyst. If not previously evaluated, nonemergent MRI liver protocol can be performed.
[2021-11-04] MEDS ORDERED: FLUTICASONE PROPIONATE NA SPR 16 GM BTL PRN (12:44)
[2021-11-04] MEDS ORDERED: GLUCAGON FOR INJ 1 MG VIAL IM PRN (13:15)
[2021-11-04] MEDS ORDERED: DEXTROSE 50% 50 ML SYRINGE IV PRN (13:15)
[2021-11-04] MEDS ORDERED: GLUCOSE 40% GEL 15 GM TUBE PO PRN (13:15)
[2021-11-04] MEDS ORDERED: GLUCOSE 10 TABS/TUBE PO PRN (13:15)
[2021-11-04] MEDS ORDERED: CARBOHYDRATES FOR HYPOGLYCEMIA PO PRN (13:15)
[2021-11-04] MEDS: INSULIN HUMAN REGULAR SC SCH ×3 (14:06→20:54)
[2021-11-04] MEDS: clonazePAM 1 MG TAB PO SCH ×2 (14:07→20:44)
[2021-11-04] MEDS ORDERED: MoRPHine SULFATE 2 MG/ML CARP IV PRN ×2 (14:16→19:18)
[2021-11-04 15:09] LABS: D Dimer 510 ug/L FEU (0-500)
--- NOTE | 2021-11-04 16:06 | XRay Report ---
XR chest 2V PA/lateral CLINICAL HISTORY: Left sided chest pain TECHNIQUE: AP and lateral frontal radiograph of the chest was obtained. Comparison: Comparison is made to chest 2 views 04/13/2021 FINDINGS: Exam is limited by underpenetration. The cardiomediastinal silhouette is normal. The lungs are clear. No evidence of pleural effusion or pneumothorax. IMPRESSION: No acute chest disease. ACT 112: Negative or not required by law. Electronically signed by: Alex Ryder M.D. 11/04/2021 4:05 PM
[2021-11-04] MEDS: PROMETHAZINE HCL 12.5 MG in SODIUM CHLORIDE 0.9% 50 ML IV PRN ×2 (16:56→23:38)
[2021-11-04] MEDS: METOPROLOL TARTRATE 25 MG TAB PO SCH (20:41)
[2021-11-04] MEDS: MAGNESIUM OXIDE 400 MG TAB PO SCH (20:41)
[2021-11-04] MEDS: lisinopril 10 MG TAB PO SCH (20:42)
[2021-11-04] MEDS: IPRATROPIUM BROMIDE NASAL SPRAY 0.06% 15ML SCH (20:42)
[2021-11-04] MEDS ORDERED: NON-FORMULARY MEDICATION (Omeprazole 40 mg capsule,delayed release(DR/EC)) PO SCH (21:00)
[2021-11-04] MEDS: PANTOprazole 40 MG in SYRINGE 0 ML IV SCH (21:06)
[2021-11-05 00:37] LABS: Appearance Urine Clear (Clear); Bacteria Urine Automated Negative (Negative); Bilirubin Urine Negative (Negative); Blood Urine Negative (Negative); Cast Urine Automated 0 /lpf (0-5); Color Urine Yellow; Glucose Urine UA Negative (Negative); Ketones Urine Negative (Negative); Leukocyte Esterase Urine 3+ (Negative); Nitrite Urine Negative (Negative); Protein Urine Negative (Negative); RBC Urine Automated 0-4 /hpf (0-4); Specific Gravity Urine 1.012 (1.000-1.030); Urobilinogen Urine Negative (Negative); WBC Urine Automated >30 /hpf (0-5)
[2021-11-05] MEDS ORDERED: NURSING DECISION MEDICATION ONE (04:37)
[2021-11-05] MEDS: SODIUM CHLORIDE 0.9% 1000ML 1,000 ML IV SCH ×3 (05:41→17:05)
[2021-11-05] MEDS: LEVOTHYROXINE SODIUM 112 MCG TABLET PO SCH (05:42)
[2021-11-05] MEDS: INSULIN HUMAN REGULAR SC SCH ×3 (05:44→17:47)
[2021-11-05] MEDS: SODIUM CHLORIDE 0.9% 500 ML IV SCH ×2 (06:22→06:23)
[2021-11-05 07:04] LABS: Basophils # (auto) 0.02 K/uL (0-0.2); Basophils % (auto) 0.3 %; Eosinophils # (auto) 0.13 K/uL (0-0.5); Eosinophils % (auto) 2.2 %; Hemoglobin 12.5 g/dL (12.0-16.0); Immature Granulocytes # (auto) 0.01 K/uL (0.00-0.02); Immature Granulocytes % (auto) 0.2 %; Lymphocytes # (auto) 2.57 K/uL (1.2-3.4); Lymphocytes % (auto) 43.4 %; Mean Corpuscular Hemoglobin 30.3 pg (25-34); Mean Corpuscular Hgb Conc 32.1 g/dL (32-36); Mean Corpuscular Volume 94.4 fL (80-100); Mean Platelet Volume 9.6 fL (7.4-10.4); Monocytes # (auto) 0.46 K/uL (0.11-0.59); Monocytes % (auto) 7.8 %; Neutrophils # (auto) 2.73 K/uL (1.4-6.5); Neutrophils % (auto) 46.1 %; Platelet Count 240 K/uL (130-400); RDW Coefficient of Variation 14.2 % (11.5-14.5); RDW Standard Deviation 49.2 fL (36.4-46.3); Red Blood Count 4.13 M/uL (4.2-5.4); White Blood Count 5.92 K/uL (4.8-10.8)
[2021-11-05 07:26] LABS: Calcium 8.9 mg/dl (8.5-10.1); Creatinine Clr Calc Pharmacy 108.8 ml/min; Est GFR (African American) 113.6 ml/min; Potassium 3.9 mmol/L (3.5-5.1)
[2021-11-05] MEDS: PROMETHAZINE HCL 12.5 MG in SODIUM CHLORIDE 0.9% 50 ML IV PRN ×2 (08:48→17:06)
[2021-11-05] MEDS: PANTOprazole 40 MG in SYRINGE 0 ML IV SCH (09:44)
[2021-11-05] MEDS: IPRATROPIUM BROMIDE NASAL SPRAY 0.06% 15ML SCH ×2 (09:45→20:56)
[2021-11-05] MEDS: VENLAFAXINE HCL XR 75 MG CAPXR PO SCH (09:46)
[2021-11-05] MEDS: CHOLECALCIFEROL 1,000 UNITS 25 MCG TAB PO SCH (09:46)
[2021-11-05] MEDS: VENLAFAXINE HCL 37.5 MG TAB PO SCH (09:47)
[2021-11-05] MEDS: LORATADINE 10 MG TAB PO SCH (09:47)
[2021-11-05] MEDS: LINACLOTIDE 145 MCG CAPSULE PO SCH (09:48)
[2021-11-05] MEDS: METOPROLOL TARTRATE 25 MG TAB PO SCH ×2 (09:48→20:55)
[2021-11-05] MEDS: MAGNESIUM OXIDE 400 MG TAB PO SCH ×2 (09:50→21:24)
[2021-11-05] MEDS: clonazePAM 1 MG TAB PO SCH ×3 (09:52→20:55)
--- NOTE | 2021-11-05 09:58 | Gastrointestinal Consultation ---
Date of Consultation November 05, 2021 Assessment & Plan (1) Abdominal pain, left upper quadrant: (2) Gastroparesis: Diff dx: GERD vs gastritis vs PUD vs IBS vs other. 1. NPO for now. 2. EGD with Dr. Alonso today for further evaluation. 3. Continue Pantoprazole 40 mg BID. 4. Continue supportive care. 5. Further recommendations pending results of testing. 6. Outpatient eval by [place] for gastroparesis is pending. Thank you for allowing us to participating in the care of this patient. If you have any questions or concerns, please do not hesitate to contact us. Supervising Physician Co-Signing Physician Notes I personally evaluated the patient and agree with the findings as documented by ARELY Chao Exam: Constitutional: WD/WN, vitals as aboveGeneral: EOM intact bilaterally Neck: normal visual inspection Respiratory: normal respiratory effort, lungs clear to auscultation Cardiovascular: RRR, no murmur, no edema Gastrointestinal: abdomennormal to inspection, nondistended, soft, mild diffuse tenderness, no hepatosplenomegaly Musculoskeletal: no cyanosis, head normal to inspection Skin: no rashes, warm and dry Neurologic: moves all extremities Psychiatric: A and O x3, euthymic affect History of Present Illness Reason for Consultation: Abdominal pain and heme positive stool Requesting Physician: Willie Barnes PA-C Attending Physician: Uriel Snowden MD History of Present Illness Ulysses Marcum is a 56 y.o. female well known to our office for a history of GERD, gastroparesis and hiatus hernia. She has been evaluated by Dr. Wallace in the past as well as Dr. Alonso. She has undergone numerous endoscopic evaluations. Last EGD 2018. She has been seen by thoracic surgery at [facility] and is being referred to [facility] due to treatment refractory gastroparesis. She is currently admitted due to a 6 day history of left upper quadrant abdominal pain. The pain is described as sharp in nature, non-radiating. Currently, the pain is a 7/10 in intensity. She reports associated nausea with intermittent vomiting (last emesis yesterday) as well as dark stool at home. She was noted to be heme positive in the hospital. Medical record reviewed. She has no leukocytosis or anemia. Liver panel and lipase were normal. CT a/p without any acute findings. She has been seen by general surgery and no surgical intervention was recommended. She has been started on Pantoprazole 40 mg IV BID. Phenergan has reportedly been helping her symptoms. Allergies Allergy/AdvReac Type Severity Reaction Status Date / Time homatropine Allergy Severe Anaphylactic Verified 11/04/21 02:51 Shock hydrocodone Allergy Severe Anaphylactic Verified 11/04/21 02:51 Shock erythromycin base Allergy Intermediate Rash Verified 11/04/21 02:51 Sulfa (Sulfonamide Allergy Intermediate Rash Verified 11/04/21 02:51 Antibiotics) methylprednisolone Allergy Mild Rash Verified 11/04/21 02:51 ondansetron Allergy Mild "Cardiac Verified 11/04/21 02:51 symptoms" gabapentin AdvReac Severe Hallucinati Verified 11/04/21 02:51 ons hydromorphone AdvReac Intermediate Confusion Verified 11/04/21 02:51 Home Medications Medication Instructions Recorded Confirmed Type lisinopril 10 mg tablet 10 mg PO HS #0 11/12/14 11/04/21 History hydrochlorothiazide 25 mg tablet 25 mg PO DAILY PRN #0 07/29/16 11/04/21 History loratadine 10 mg tablet (Claritin) 10 mg PO QAM #0 07/29/16 11/04/21 History ferrous sulfate 325 mg (65 mg 325 mg PO HS #0 08/09/16 11/04/21 History iron) tablet cholecalciferol (vitamin D3) 25 2,000 unit PO QAM #0 09/01/17 11/04/21 History mcg (1,000 unit) tablet levothyroxine 112 mcg tablet 112 mcg PO QAM #0 09/01/17 11/04/21 History magnesium oxide 400 mg (241.3 mg 400 mg PO BID 04/06/19 11/04/21 History magnesium) tablet metoprolol tartrate 25 mg tablet 37.5 mg PO BID #60 tab 07/20/19 11/04/21 Rx fluticasone propionate 50 2 sprays INTNAS DAILY PRN ml 08/11/19 11/04/21 History mcg/actuation nasal spray,suspension rosuvastatin 10 mg tablet 10 mg PO HS 02/16/20 11/04/21 History venlafaxine 75 mg capsule,extended 75 mg PO QAM 02/16/20 11/04/21 History release 24 hr ipratropium bromide 42 mcg (0.06 2 spray INTRANASAL BID #15 ml 01/05/21 11/04/21 Rx %) nasal spray Medical Marijuana 1 dose INHALATION UD 07/09/21 11/04/21 History omeprazole 40 mg capsule,delayed 40 mg PO BID #60 cap 07/11/21 11/04/21 Rx release venlafaxine 37.5 mg tablet 37.5 mg PO QAM 08/24/21 11/04/21 History insulin lispro 100 unit/mL 0 unit SUBCUT ACHS ml 09/28/21 11/04/21 History subcutaneous solution (Admelog U-) linaclotide 145 mcg capsule 145 mcg PO QAM #90 cap 10/05/21 11/04/21 Rx (Linzess) clonazepam 1 mg tablet 1 mg PO TID 11/04/21 11/04/21 History insulin glargine 100 unit/mL (3 38 unit SUBCUT HS 11/04/21 11/04/21 History mL) subcutaneous pen (Lantus Solostar U-100 Insulin) Patient History Medical History Acquired deviated nasal septum Acute respiratory failure with hypoxia Claustrophobia Diabetes IDDM Diabetes type 1, controlled Dyslipidemia Family history of malignant neoplasm of breast in first degree relative Fatty liver Gastroparesis Hiatal hernia Hypertension Hypothyroidism Intermittent palpitations follows with Dr. Stout Long QT syndrome Lumbar radiculopathy + bulging discs Panic disorder with agoraphobia Uses medical marijuana PTSD (post-traumatic stress disorder) Surgical History History of ankle surgery RT History of delivery x4 History of colonoscopy History of cryosurgery cervix History of esophagogastroduodenoscopy (EGD) History of total adrenalectomy S/P appendectomy S/P epidural steroid injection S/P trigger finger release Left thumb trigger release (03/22/21): MAC at [facility] Family History Sister Diabetes Breast cancer Renal failure Brother Trisomy 21 Diabetes Son Diabetes Grandfather (Maternal) Heart disease Father Pernicious anemia Other Hypertension No family history of adverse response to anesthesia Social History Smoking Status: Never smoker Tobacco Type: E-cigarettes / Vaping Second Hand Exposure: No; Hx Alcohol Use: No Hx Substance Use: No Preferred Language: Jamaican Communication Ability: Effective Resin Coater Required: No Beliefs That Will Affect Care: None Current Living Situation: Family Other Information That Helps Us Care for You: No Feels Safe at Home: Yes Safety Concerns: Feels Safe At This Time Assistive Devices: None Review of Systems Constitutional: no fever and no chills Gastrointestinal: as per Subjective / HPI Physical Exam Constitutional: + obese; no acute distress Eyes: + anicteric sclerae and EOM intact bilaterally Neck: normal visual inspection Respiratory: normal respiratory effort, lungs clear to auscultation Cardiovascular: Rate/Rhythm: regular rate and regular rhythm Gastrointestinal (Abdomen): Inspection/Auscultation: normal bowel sounds Percussion/Palpation: + abdomen tender and abdomen soft Psychiatric: A+Ox3, euthymic affect Results & Data ([facility]) Vital Signs (Past 12 Hours) Vital Signs Temp Pulse Resp BP BP Pulse Ox 11/05/21 07:00 36.5 C 71 20 124/72 94 11/04/21 22:54 36.9 C 60 15 126/73 93 Diagnostic Findings Laboratory Results WBC 5.92 K/uL (4.8-10.8) 11/05/21 06:16 RBC 4.13 M/uL (4.2-5.4) L 11/05/21 06:16 Hgb 12.5 g/dL (12.0-16.0) 11/05/21 06:16 Hct 39.0 % (37-47) 11/05/21 06:16 MCV 94.4 fL (80-100) 11/05/21 06:16 MCH 30.3 pg (25-34) 11/05/21 06:16 MCHC 32.1 g/dL (32-36) 11/05/21 06:16 RDW Std Deviation 49.2 fL (36.4-46.3) H 11/05/21 06:16 RDW Coeff of [place] 14.2 % (11.5-14.5) 11/05/21 06:16 Plt Count 240 K/uL (130-400) 11/05/21 06:16 MPV 9.6 fL (7.4-10.4) 11/05/21 06:16 Immature Gran % (Auto) 0.2 % 11/05/21 06:16 Neut % (Auto) 46.1 % 11/05/21 06:16 Lymph % (Auto) 43.4 % 11/05/21 06:16 [place] % (Auto) 7.8 % 11/05/21 06:16 Eos % (Auto) 2.2 % 11/05/21 06:16 Baso % (Auto) 0.3 % 11/05/21 06:16 Neut # (Auto) 2.73 K/uL (1.4-6.5) 11/05/21 06:16 Lymph # (Auto) 2.57 K/uL (1.2-3.4) 11/05/21 06:16 [place] # (Auto) 0.46 K/uL (0.11-0.59) 11/05/21 06:16 Eos # (Auto) 0.13 K/uL (0-0.5) 11/05/21 06:16 Baso # (Auto) 0.02 K/uL (0-0.2) 11/05/21 06:16 Immature Gran # (Auto) 0.01 K/uL (0.00-0.02) 11/05/21 06:16 Neutrophils % (Manual) 24.6 % 11/04/21 00:00 Lymphocytes % (Manual) 45.6 % 11/04/21 00:00 Reactive Lymphs % (Man) 20.2 % 11/04/21 00:00 Monocytes % (Manual) 7.0 % 11/04/21 00:00 Eosinophils % (Manual) 2.6 % 11/04/21 00:00 Neutrophils # (Manual) 2.03 K/uL (1.4-6.5) 11/04/21 00:00 Total Absolute Neuts 2.03 K/uL (1.4-6.5) 11/04/21 00:00 Lymphocytes # (Manual) 3.76 K/uL (1.2-3.4) H 11/04/21 00:00 Reactive Lymphs # 1.67 K/uL 11/04/21 00:00 Total Abs Lymphocytes 5.43 K/uL (1.2-3.4) H 11/04/21 00:00 Monocytes # (Manual) 0.58 K/uL (0.11-0.59) 11/04/21 00:00 Eosinophils # (Manual) 0.21 K/uL (0-0.5) 11/04/21 00:00 Blood Smear Review 11/04/21 00:00 RBC Morphology Unremarkable 11/04/21 00:00 D-Dimer 510 ug/L FEU (0-500) H* 11/04/21 14:44 Sodium 140 mmol/L (136-145) 11/05/21 06:16 Potassium 3.9 mmol/L (3.5-5.1) 11/05/21 06:16 Chloride 109 mmol/L (98-107) H 11/05/21 06:16 Carbon Dioxide 27 mmol/L (21-32) 11/05/21 06:16 Anion Gap 4 (3-11) 11/05/21 06:16 BUN 9 mg/dl (6-23) 11/05/21 06:16 Creatinine 0.69 mg/dl (0.6-1.2) 11/05/21 06:16 Est Cr Clr Drug Dosing 108.8 ml/min 11/05/21 06:16 Est GFR ( Amer) 113.6 ml/min 11/05/21 06:16 Est GFR (Non-Af Amer) 98.0 ml/min 11/05/21 06:16 BUN/Creatinine Ratio 13.0 (10-20) 11/05/21 06:16 Glucose 97 mg/dl (70-99(Fasting)) 11/05/21 06:16 POC Glucose 98 mg/dl (70-99) 11/05/21 05:44 Lactate 1.2 mmol/L (0.4-2.0) 11/04/21 04:43 Calcium 8.9 mg/dl (8.5-10.1) 11/05/21 06:16 Total Bilirubin 0.5 mg/dl (0.2-1.0) 11/04/21 00:00 AST 17 U/L (13-39) 11/04/21 00:00 ALT 19 U/L (7-52) 11/04/21 00:00 Alkaline Phosphatase 62 U/L (34-104) 11/04/21 00:00 Troponin I < 0.03 ng/ml (0-0.04) 11/04/21 00:00 Total Protein 7.2 gm/dl (6.0-8.3) 11/04/21 00:00 Albumin 4.2 gm/dl (3.4-5.0) 11/04/21 00:00 Globulin 3.0 gm/dl (2.5-4.0) 11/04/21 00:00 Albumin/Globulin Ratio 1.4 (0.9-2) 11/04/21 00:00 Lipase 27 U/L (11-82) 11/04/21 00:00 Urine Color Yellow 11/05/21 00:10 Urine Appearance Clear (Clear) 11/05/21 00:10 Urine pH 6.0 (4.5-7.5) 11/05/21 00:10 Ur Specific [place] 1.012 (1.000-1.030) 11/05/21 00:10 Urine Protein Negative (Negative) 11/05/21 00:10 Urine Glucose (UA) Negative (Negative) 11/05/21 00:10 Urine Ketones Negative (Negative) 11/05/21 00:10 Urine Blood Negative (Negative) 11/05/21 00:10 Urine Nitrite Negative (Negative) 11/05/21 00:10 Urine Bilirubin Negative (Negative) 11/05/21 00:10 Urine Urobilinogen Negative (Negative) 11/05/21 00:10 Ur Leukocyte Esterase 3+ (Negative) H 11/05/21 00:10 Urine WBC (Auto) >30 /hpf (0-5) H 11/05/21 00:10 Urine RBC (Auto) 0-4 /hpf (0-4) 11/05/21 00:10 U Hyaline Cast (Auto) 0 /lpf (0-5) 11/05/21 00:10 U Epithel Cells (Auto) 10-20 /lpf (0-5) H 11/05/21 00:10 Urine Bacteria (Auto) Negative (Negative) 11/05/21 00:10 POC Stool Occult Blood Positive (Negative) A 11/04/21 09:42 SARS-CoV-2, RNA, NAAT NEGATIVE (NEGATIVE) 11/04/21 09:20 Impressions Abdomen/Pelvis CT 11/03/21 23:57 CT abd pelvis IV con only CLINICAL HISTORY: LUQ pain TECHNIQUE: Helical axial images of the abdomen and pelvis were obtained and displayed. Automated dose lowering techniques and/or adjustment according to patient size were utilized for this exam. This exam was performed with intravenous contrast. COMPARISON: Comparison is made to CT abdomen pelvis 07/18/2019 FINDINGS: Lower chest: No acute abnormality Liver: Hepatic hypodensity is seen measuring 16 mm and with greater than simple fluid attenuation, but stable in size from prior exam. Gallbladder and biliary tree: No calcified gallstones. Normal caliber wall. No intra- or extrahepatic biliary ductal dilation. Pancreas: Unremarkable, no focal lesions. Spleen: Unremarkable. Adrenals: Unremarkable. Kidneys and ureters: Unremarkable. Bladder: Unremarkable. Reproductive organs: Unremarkable. Bowel: Unremarkable. Patient is status post appendectomy. Lymph nodes Retroperitoneal: Unremarkable. Mesenteric: Unremarkable. Pelvic: Unremarkable. Peritoneum: Normal. Vessels: Minimal atherosclerotic disease is seen. Abdominal wall: A fat-containing umbilical hernia is seen. Bones: Unremarkable. IMPRESSION: 1. No evidence of acute abnormality. 2. 2.1 cm hypoattenuating lesion in the liver is stable from prior exam but does not definitely represent a cyst. If not previously evaluated, nonemergent MRI liver protocol can be performed. ACT 112: Negative or not required by law. Electronically signed by: Alex Ryder M.D. 11/04/2021 8:51 AM Chest X-Ray 11/04/21 14:28 XR chest 2V PA/lateral CLINICAL HISTORY: Left sided chest pain TECHNIQUE: AP and lateral frontal radiograph of the chest was obtained. Comparison: Comparison is made to chest 2 views 04/13/2021 FINDINGS: Exam is limited by underpenetration. The cardiomediastinal silhouette is normal. The lungs are clear. No evidence of pleural effusion or pneumothorax. IMPRESSION: No acute chest disease. ACT 112: Negative or not required by law. Electronically signed by: Alex Ryder M.D. 11/04/2021 4:05 PM PG Care Time/CCT Total # of Minutes Spent Total Time Spent with Patient: Total time spent is greater than 50% in coordination of care (as documented) at patient's floor/unit and/or counseling patient: Coding Level of Care Code 41052 Inpt Consult Level 4 Diagnoses Abdominal pain, left upper quadrant R10.12 Gastroparesis K31.84
--- NOTE | 2021-11-05 11:32 | Anesthesiology Consultation ---
Date of Service November 05, 2021 Assessment & Plan Chart Review Chart Review: Acceptable Risk for Surgery and Patient NOT seen in Pre Admission Testing Consults Requested none ASA ASA3 Proposed Anesthesia Anesthesia Type: MAC Risk / Benefits Reviewed With: PT / POA / Parent / Guardian, Accepts Plan and Informed Consent Obtained History Surgery Operation Date: 11/05/21 17:15 Proposed Procedures p Esophagogastroduodenoscopy Dr. Alonso - Primo Alonso MD Height/Weight Height: 5 ft 2 in Weight: 111.9 kg Allergies Allergy/AdvReac Type Severity Reaction Status Date / Time homatropine Allergy Severe Anaphylactic Verified 11/04/21 02:51 Shock hydrocodone Allergy Severe Anaphylactic Verified 11/04/21 02:51 Shock erythromycin base Allergy Intermediate Rash Verified 11/04/21 02:51 Sulfa (Sulfonamide Allergy Intermediate Rash Verified 11/04/21 02:51 Antibiotics) methylprednisolone Allergy Mild Rash Verified 11/04/21 02:51 ondansetron Allergy Mild "Cardiac Verified 11/04/21 02:51 symptoms" gabapentin AdvReac Severe Hallucinati Verified 11/04/21 02:51 ons hydromorphone AdvReac Intermediate Confusion Verified 11/04/21 02:51 Medications Home Medications Medication Instructions Recorded Confirmed Last Taken lisinopril 10 mg tablet 10 mg PO HS #0 11/12/14 11/04/21 07/18/21 hydrochlorothiazide 25 mg tablet 25 mg PO DAILY PRN #0 07/29/16 11/04/21 Unknown loratadine 10 mg tablet (Claritin) 10 mg PO QAM #0 07/29/16 11/04/21 07/19/21 ferrous sulfate 325 mg (65 mg 325 mg PO HS #0 08/09/16 11/04/21 07/18/21 iron) tablet cholecalciferol (vitamin D3) 25 2,000 unit PO QAM #0 09/01/17 11/04/21 07/19/21 mcg (1,000 unit) tablet levothyroxine 112 mcg tablet 112 mcg PO QAM #0 09/01/17 11/04/21 07/19/21 magnesium oxide 400 mg (241.3 mg 400 mg PO BID 04/06/19 11/04/21 07/19/21 magnesium) tablet metoprolol tartrate 25 mg tablet 37.5 mg PO BID #60 tab 07/20/19 11/04/21 fluticasone propionate 50 2 sprays INTNAS DAILY PRN ml 08/11/19 11/04/21 07/19/21 mcg/actuation nasal spray,suspension rosuvastatin 10 mg tablet 10 mg PO HS 02/16/20 11/04/21 03/21/21 venlafaxine 75 mg capsule,extended 75 mg PO QAM 02/16/20 11/04/21 03/22/21 07:00 release 24 hr ipratropium bromide 42 mcg (0.06 2 spray INTRANASAL BID #15 ml 01/05/21 11/04/21 03/21/21 %) nasal spray Medical Marijuana 1 dose INHALATION UD 07/09/21 11/04/21 07/18/21 omeprazole 40 mg capsule,delayed 40 mg PO BID #60 cap 07/11/21 11/04/21 Unknown release venlafaxine 37.5 mg tablet 37.5 mg PO QAM 08/24/21 11/04/21 Unknown insulin lispro 100 unit/mL 0 unit SUBCUT ACHS ml 09/28/21 11/04/21 Unknown subcutaneous solution (Admelog U-) linaclotide 145 mcg capsule 145 mcg PO QAM #90 cap 10/05/21 11/04/21 Unknown (Linzess) clonazepam 1 mg tablet 1 mg PO TID 11/04/21 11/04/21 Unknown insulin glargine 100 unit/mL (3 38 unit SUBCUT HS 11/04/21 11/04/21 Unknown mL) subcutaneous pen (Lantus Solostar U-100 Insulin) Active Medications Generic Name Dose Route Start Last Admin Trade Name Freq PRN Reason Stop Dose Admin Clonazepam 1 mg 11/04/21 14:00 11/05/21 09:52 Clonazepam 1 Mg Tab PO 12/04/21 13:59 1 mg TID DARLEEN Administration Pantoprazole Sodium 40 mg/ 10 mls @ 5 mls/min 11/04/21 21:00 11/05/21 09:44 Syringe IV 12/04/21 20:59 5 mls/min BID DARLEEN Administration Acetaminophen 1,000 mg in 100 mls @ 400 mls/hr 11/04/21 12:44 11/05/21 00:16 Ofirmev IV 11/07/21 12:43 Infused Q8H PRN Infusion pain Promethazine HCl 12.5 mg/ 50.5 mls @ 202 mls/hr 11/04/21 16:29 11/05/21 09:54 Sodium Chloride IV 12/04/21 16:28 Infused Q6H PRN Infusion Nausea And Vomiting Sodium Chloride 1,000 mls @ 125 mls/hr 11/05/21 05:00 11/05/21 11:05 Nss 1000ml IV 12/05/21 04:59 0 mls/hr .Q8H DARLEEN Infusion Insulin Human Regular 0 units 11/05/21 06:00 11/05/21 05:44 Insulin Human Regular SC 12/05/21 05:59 Not Given Q6 DARLEEN Ipratropium [place] 2 sprays 11/04/21 21:00 11/05/21 09:45 Ipratropium [place] Nasal [place] 0.06% 15ml NA 12/04/21 20:59 2 sprays BID DARLEEN Administration Levothyroxine Sodium 112 mcg 11/05/21 06:30 11/05/21 05:42 Levothyroxine Sodium 112 Mcg Tablet PO 12/05/21 06:29 112 mcg DAILYBB DARLEEN Administration Linaclotide 145 mcg 11/05/21 09:00 11/05/21 09:48 Linaclotide 145 Mcg Capsule PO 12/05/21 08:59 145 mcg QAM DARLEEN Administration Lisinopril 10 mg 11/04/21 21:00 11/04/21 20:42 Lisinopril 10 Mg Tab PO 12/04/21 20:59 10 mg HS DARLEEN Administration Loratadine 10 mg 11/05/21 09:00 11/05/21 09:47 Loratadine 10 Mg Tab PO 12/05/21 08:59 10 mg QAM DARLEEN Administration Magnesium Oxide 400 mg 11/04/21 21:00 11/05/21 09:50 Magnesium Oxide 400 Mg Tab PO 12/04/21 20:59 400 mg BID DARLEEN Administration Metoprolol Tartrate 37.5 mg 11/04/21 21:00 11/05/21 09:48 Metoprolol Tartrate 25 Mg Tab PO 12/04/21 20:59 37.5 mg BID DARLEEN Administration Venlafaxine HCl 37.5 mg 11/05/21 09:00 11/05/21 09:47 Venlafaxine Hcl 37.5 Mg Tab PO 12/05/21 08:59 37.5 mg QAM DARLEEN Administration Venlafaxine HCl 75 mg 11/05/21 09:00 11/05/21 09:46 Venlafaxine Hcl Xr 75 Mg Capxr PO 12/05/21 08:59 75 mg QAM DARLEEN Administration Vitamin D 2,000 units 11/05/21 09:00 11/05/21 09:46 Cholecalciferol 1,000 Units 25 Mcg Tab PO 12/05/21 08:59 2,000 units QAM DARLEEN Administration NPO Date Last Intake of Fluids: 11/04/21 Time Last Intake of Fluids: 18:00 Date Last Intake of Solids: 11/04/21 Time Last Intake of Solids: 18:00 Past Medical History Medical History Acquired deviated nasal septum Acute respiratory failure with hypoxia Claustrophobia Diabetes IDDM Diabetes type 1, controlled Dyslipidemia Family history of malignant neoplasm of breast in first degree relative Fatty liver Gastroparesis Hiatal hernia Hypertension Hypothyroidism Intermittent palpitations follows with Dr. Stout Long QT syndrome Lumbar radiculopathy + bulging discs Panic disorder with agoraphobia Uses medical marijuana PTSD (post-traumatic stress disorder) Exercise / Class Metabolic Activity II 4-5 Yardwork/Stairs/Walk up hill Past Family History Family History Sister Diabetes Breast cancer Renal failure Brother Trisomy 21 Diabetes Son Diabetes Grandfather (Maternal) Heart disease Father Pernicious anemia Other Hypertension No family history of adverse response to anesthesia Past Surgical History Surgical History History of ankle surgery RT History of delivery x4 History of colonoscopy History of cryosurgery cervix History of esophagogastroduodenoscopy (EGD) History of total adrenalectomy S/P appendectomy S/P epidural steroid injection S/P trigger finger release Left thumb trigger release (03/22/21): MAC at [facility] Past Anesthesia History No Hx of Anesthesia Complications and No Family Hx of Anesthesia Complications History of PONV No Hx of PONV and No Hx of Motion Sickness Social History Smoking Status: Never smoker tobacco type: e-cigarettes Hx Alcohol Use: No Alcohol type: beer and wine alcohol intake frequency: holidays/special occasions only Hx Substance Use: No substance use type: marijuana (Medical marijuana HS) Substance Use Type Other:: medical > uses at hs Physical Exam Vital Signs Last Vital Signs Temp 36.5 C 11/05/21 07:00 Pulse 71 11/05/21 07:00 Resp 20 11/05/21 07:00 BP 124/72 11/05/21 07:00 Pulse Ox 94 11/05/21 07:00 Constitutional + morbidly obese ENMT Mouth: no dentition abnormality Thyromental Distance: > or= 3.5 Finger Breadths Mallampati Class: II Neck normal visual inspection Respiratory normal respiratory effort Auscultation: lungs clear to auscultation bilaterally Cardiovascular Rate/Rhythm: regular rate and regular rhythm Psychiatric Orientation: alert Testing Laboratory Results 11/05/21 06:16 11/05/21 06:16 Urine Color Yellow 11/05/21 00:10 Urine Appearance Clear (Clear) 11/05/21 00:10 Urine pH 6.0 (4.5-7.5) 11/05/21 00:10 Ur Specific [place] 1.012 (1.000-1.030) 11/05/21 00:10 Urine Protein Negative (Negative) 11/05/21 00:10 Urine Glucose (UA) Negative (Negative) 11/05/21 00:10 Urine Ketones Negative (Negative) 11/05/21 00:10 Urine Nitrite Negative (Negative) 11/05/21 00:10 Ur Leukocyte Esterase 3+ (Negative) H 11/05/21 00:10 Urine WBC (Auto) >30 /hpf (0-5) H 11/05/21 00:10 Urine RBC (Auto) 0-4 /hpf (0-4) 11/05/21 00:10 U Hyaline Cast (Auto) 0 /lpf (0-5) 11/05/21 00:10 U Epithel Cells (Auto) 10-20 /lpf (0-5) H 11/05/21 00:10 Urine Bacteria (Auto) Negative (Negative) 11/05/21 00:10 11/05/21 05:44 POC Glucose 98
[2021-11-05] MEDS ORDERED: fentaNYL citrate 100 MCG/2 ML VIAL ONE (11:42)
[2021-11-05] MEDS ORDERED: LIDOCAINE 2% 2 ML VIAL/AMP(20MG/ML) INFIL ONE (11:43)
[2021-11-05] MEDS ORDERED: PROPOFOL IV EMULSION 10 MG/ML 20 ML VIAL IV ONE (11:43)
--- NOTE | 2021-11-05 12:02 | GI REPORT ---
Patient Name: Ulysses Marcum Procedure Date: 11/05/2021 11:37 AM Date of : 1965 Admit Type: Inpatient Age: 56 Gender: Female Attending MD: Primo Alonso MD Procedure: Upper GI endoscopy Providers: Primo Alonso MD Referring MD: Referred Self Indications: Abdominal pain in the left upper quadrant Medicines: Monitored Anesthesia Care Complications: No immediate complications. Estimated blood loss: None. Estimated Blood Loss: Estimated blood loss: none. Procedure: Pre-Anesthesia Assessment: - Prior Anticoagulants: The patient has taken no previous anticoagulant or antiplatelet agents. - ASA Grade Assessment: II - A patient with mild systemic disease. After obtaining informed consent, the endoscope was passed under direct vision. Throughout the procedure, the patient's blood pressure, pulse, and oxygen saturations were monitored continuously. The Endoscope was introduced through the mouth, and advanced to the second part of duodenum. The upper GI endoscopy was accomplished without difficulty. The patient tolerated the procedure well. Findings: The examined esophagus was normal. no evidence of hernia or other abnormality. Retained fluid was found in the stomach. this was removed with suction. A piece of chewing gum was also found in the stomach. The stomach was otherwise normal. The duodenal bulb and second portion of the duodenum were normal. Impression: - Normal esophagus. - Retained gastric fluid. - Normal duodenal bulb and second portion of the duodenum. - No specimens collected. Recommendation: - Return [facility] to [facility] for [facility] care. - Advance diet as tolerated today. Primo Alonso MD 11/05/2021 12:01:23 PM This report has been signed electronically. Note Initiated On: 11/05/2021 11:37 AM Number of Addenda: 0 I attest to the content of the Intraoperative Record and orders documented therein, exceptions below {[id number]}
[2021-11-05] MEDS: ACETAMINOPHEN 1,000 MG/100 ML VIAL IV PRN ×3 (12:50→23:14)
--- NOTE | 2021-11-05 13:06 | Anesthesiology Progress Note ---
Date of Service November 05, 2021 Anesthesia Post Procedure Vital Signs Vital Signs: Temp Pulse Pulse Resp BP BP BP 11/05/21 12:42 36.8 C 61 18 146/78 H 11/05/21 12:33 56 L 18 117/57 L 11/05/21 12:18 57 L 18 123/60 11/05/21 12:03 62 18 110/68 11/05/21 11:31 36.3 C L 70 18 157/78 H 11/05/21 07:00 36.5 C 71 20 124/72 11/04/21 22:54 36.9 C 60 15 126/73 11/04/21 20:45 73 139/67 11/04/21 17:17 36.8 C 71 16 134/81 11/04/21 16:29 69 22 11/04/21 15:30 78 24 128/56 L Pulse Ox 11/05/21 12:42 97 11/05/21 12:33 94 11/05/21 12:18 94 11/05/21 12:03 93 11/05/21 11:31 97 11/05/21 07:00 94 11/04/21 22:54 93 11/04/21 20:45 11/04/21 17:17 97 11/04/21 16:29 97 11/04/21 15:30 99 Pain Intensity Left Upper Abdomen: Pain Intensity: 7 Transfer of Care Handoff Completed per policy Notes Mental Status: alert / awake / arousable Patient Amnestic to Procedure: Yes Nausea / Vomiting: adequately controlled Pain: adequately controlled Airway Patency, RR, SpO2: stable & adequate BP & HR: stable & adequate Hydration State: stable & adequate Anesthetic Complications: no major complications apparent
[2021-11-05] MEDS ORDERED: PHARMACY GLYCEMIC MGMT CONSULT PRN (19:52)
--- NOTE | 2021-11-05 19:52 | Hospitalist Progress Note ---
Date of Service November 05, 2021 Assessment & Plan (1) Abdominal pain: Plan: Unclear definitive etiology but most likely related to her known gastroparesis. She appears to have a MSK element of her pain on top of this however in addition. Admission and Anticipated Discharge Date Admission Date: November 04, 2021 Results & Data Results & Data ([facility]) Vital Signs (Past 12 Hours) Vital Signs Temp Pulse Resp BP BP Pulse Ox 11/05/21 14:36 36.6 C 54 L 18 118/67 95 11/05/21 12:42 36.8 C 61 18 146/78 H 97 11/05/21 12:33 56 L 18 117/57 L 94 11/05/21 12:18 57 L 18 123/60 94 11/05/21 12:03 62 18 110/68 93 11/05/21 11:31 36.3 C L 70 18 157/78 H 97 PG Care Time/CCT Total # of Minutes Spent Total Time Spent with Patient: Total time spent is greater than 50% in coordination of care (as documented) at patient's floor/unit and/or counseling patient: Coding Diagnoses Abdominal pain R10.9
[2021-11-05] MEDS: lisinopril 10 MG TAB PO SCH (20:55)
[2021-11-05] MEDS: PANTOprazole 40 MG TAB PO SCH (20:55)
[2021-11-05] MEDS: INSULIN ASPART PER UNIT SC SCH (21:27)
[2021-11-05] MEDS ORDERED: INSULIN GLARGINE SOLOSTAR 100 UNITS/ML 3 ML PEN SC SCH (21:30)
--- NOTE | 2021-11-05 22:14 | Electrocardiogram Report ---
Test Reason : Blood Pressure : / mmHG Vent. Rate : 087 BPM Atrial Rate : 087 BPM P-R Int : 136 ms QRS Dur : 090 ms QT Int : 420 ms P-R-T Axes : 050 058 063 degrees QTc Int : 505 ms Poor data quality, interpretation may be adversely affected Normal sinus rhythm Nonspecific ST abnormality Abnormal ECG When compared with ECG of 20-MAR-2021 15:26, Nonspecific T wave abnormality no longer evident in Lateral leads Confirmed by Zane Rodas ([id number]) on 11/05/2021 10:14:04 PM Referred By: REFERRED SELF Confirmed By:Zane Rodas
[2021-11-06] MEDS: PROMETHAZINE HCL 12.5 MG in SODIUM CHLORIDE 0.9% 50 ML IV PRN ×2 (00:18→10:43)
[2021-11-06] MEDS: SODIUM CHLORIDE 0.9% 1000ML 1,000 ML IV SCH ×2 (01:10→08:51)
[2021-11-06] MEDS: LEVOTHYROXINE SODIUM 112 MCG TABLET PO SCH (05:55)
[2021-11-06] MEDS: ACETAMINOPHEN 1,000 MG/100 ML VIAL IV PRN (07:23)
[2021-11-06] MEDS: IPRATROPIUM BROMIDE NASAL SPRAY 0.06% 15ML SCH (07:48)
[2021-11-06] MEDS: PANTOprazole 40 MG TAB PO SCH (07:49)
[2021-11-06] MEDS: MAGNESIUM OXIDE 400 MG TAB PO SCH (07:49)
[2021-11-06] MEDS: LORATADINE 10 MG TAB PO SCH (07:49)
[2021-11-06] MEDS: CHOLECALCIFEROL 1,000 UNITS 25 MCG TAB PO SCH (07:49)
[2021-11-06] MEDS: VENLAFAXINE HCL XR 75 MG CAPXR PO SCH (07:49)
[2021-11-06] MEDS: LINACLOTIDE 145 MCG CAPSULE PO SCH (07:50)
[2021-11-06] MEDS: METOPROLOL TARTRATE 25 MG TAB PO SCH (07:50)
[2021-11-06] MEDS: VENLAFAXINE HCL 37.5 MG TAB PO SCH (07:50)
[2021-11-06] MEDS: clonazePAM 1 MG TAB PO SCH (07:54)
[2021-11-06] MEDS: INSULIN ASPART PER UNIT SC SCH ×2 (09:30→12:45)
--- NOTE | 2021-11-06 11:10 | Pharmacy Report ---
Pharmacy Glycemic Short Note 2 - Date of Service November 06, 2021 - Glycemic Short BSG Results (Last 24 hours): 11/05/21 11/05/21 11/05/21 13:17 17:35 20:38 POC Glucose 104 H 91 150 H 11/06/21 08:22 POC Glucose 125 H OUTPATIENT ANTIDIABETIC REGIMEN: * Lantus 38 units SQ HS * Humalog ACHS ASSESSMENT: * 56 Y/O F admitted for N/V and abdominal pain from gastroparesis. Patient underwent EGD yesterday. Diet resumed since then. * She has a history of diabetes managed with basal Lantus and bolus Lispro ACHS at home. * Basal and bolus insulin were continued on admission two days ago; pharmacy consulted for glycemic management yesterday. * Since patient has had limited oral food intake, she has not required much Novolog bolus so far. * She received 15 units of basal last night. Fasting BSG = 125 mg/dl this AM. Continued same dose of basal tonight PLAN FOR INPATIENT GLYCEMIC CONTROL: * Basal insulin * Lantus 15 units SQ HS * Bolus insulin * NovoLog per scale ACHS or Q6hrs while NPO * Goal Range: Low 110 mg/dL - High 140 mg/dL * Correction Factor: 30 mg/dL/unit * Nutritional / Prandial insulin per carb ratio of 1 unit per 10 grams CHO consumed PLAN FOR DISCHARGE: * HbA1c = 6.8% on 09/28/21 * Above A1c indicates well-controlled diabetes. Recommend probably continue same doses of basal Lantus and bolus Lispro ACHS at home as long as patient is not reporting any hypoglycemia and she is able to continue on oral food intake.
--- NOTE | 2021-11-06 11:48 | XRay Report ---
KUB HISTORY: Acute generalized abdominal pain persistant abdominal pain, ?developing SBO COMPARISON: CT abdomen pelvis 11/04/2021 FINDINGS: Nonobstructive bowel gas pattern. There are a few air-filled loops of large and small bowel noted within the central abdomen. No renal calculi. No ureteral calculi. No pneumoperitoneum or pne umatosis. No fracture. IMPRESSION: Nonobstructive bowel gas pattern. Air-filled loops of large and small bowel within central abdomen ar e favored to be physiologic. ACT 112: Negative or not required by law. The above report was generated using voice recognition software. It may contain grammatical, syntax o r spelling errors. Electronically signed by: Ryan Box M.D. 11/06/2021 11:47 AM
[2021-11-06 14:27] LABS: Hematocrit (blood only) 40.4 % (37-47); Hemoglobin 13.5 g/dL (12.0-16.0); Mean Corpuscular Hemoglobin 30.7 pg (25-34); Mean Corpuscular Hgb Conc 33.4 g/dL (32-36); Mean Corpuscular Volume 91.8 fL (80-100); Mean Platelet Volume 9.4 fL (7.4-10.4); Platelet Count 271 K/uL (130-400); RDW Coefficient of Variation 13.8 % (11.5-14.5); RDW Standard Deviation 46.4 fL (36.4-46.3); White Blood Count 7.31 K/uL (4.8-10.8)
[2021-11-06] MEDS ORDERED: INSULIN GLARGINE SOLOSTAR 100 UNITS/ML 3 ML PEN SC SCH (21:00)
== END 2021-11-06 15:21 | disposition home or self-care (01) ==
LOC: ED 23:17 → EDINP 23:17 → 3N 11-04 12:45

== ENCOUNTER 2022-11-19 05:49 | Observation (INO) ==
--- NOTE | 2022-11-13 15:25 | Anesthesiology Consultation ---
Date of Service November 13, 2022 Assessment & Plan (1) Encounter for pre-operative examination: Chart Review Chart Review: Acceptable Risk for Surgery and Patient NOT seen in Pre Admission Testing - Check BSG AM DOS Previous cardiology recommendations from anesthesia consult 08/24/21: Long QT syndrome: Per cardiology recommendations, "Would avoid any QT prolonging drugs such as fluoroquinolones and erythromycin based antibiotics as well as antiemetics and SSRIs." -COVID screening: Per PAT nursing assessment on 11/13/22. Pt tested Covid negative 11/06/22 (prior to procedure with Dr. Deleon). No known COVID-19 positive contacts or current COVID-19 related symptoms. Travel screen negative. Patient vaccinated for Covid. At surgeon discretion if preop Covid testing being done. Left carpal tunnel release, left ulnar nerve release 09/03/22= Done under [facility] with LMA #4. Patient seen by PCP 08/28/2022 = patient seen for preop clearance prior to left elbow surgery. Patient's METS score is at least 4. For a minor intermediate procedure, patient is acceptable risk. History Surgery Operation Date: 11/19/22 13:30 Proposed Procedures p Right Shoulder Arthroscopy, Subacromial Decompression, Distal Clavicle Excision - Gume Dhillon MD Height/Weight Height: 5 ft 2 in Weight: 95.254 kg Allergies Allergy/AdvReac Type Severity Reaction Status Date / Time gabapentin Allergy Severe Hallucinati Verified 11/13/22 14:32 ons homatropine Allergy Severe Anaphylactic Verified 11/13/22 14:32 Shock hydrocodone Allergy Severe Anaphylactic Verified 11/13/22 14:32 Shock erythromycin base Allergy Intermediate Rash Verified 11/13/22 14:32 hydromorphone Allergy Intermediate Confusion Verified 11/13/22 14:32 methylprednisolone Allergy Intermediate Rash Verified 11/13/22 14:32 ondansetron Allergy Intermediate "Cardiac Verified 11/13/22 14:32 symptoms" Sulfa (Sulfonamide Allergy Intermediate Rash Verified 11/13/22 14:32 Antibiotics) codeine Allergy Unknown listed in Verified 11/13/22 14:32 cardio records Medications Home Medications Medication Instructions Recorded Confirmed Last Taken lisinopril 10 mg tablet 10 mg PO HS ##0 11/12/14 11/13/22 09/02/22 21:30 hydrochlorothiazide 25 mg tablet 25 mg PO DAILY PRN Fluid Retention 07/29/16 11/13/22 01/08/22 ##0 loratadine 10 mg tablet (Claritin) 10 mg PO QAM ##0 07/29/16 11/13/22 09/02/22 09:00 ferrous sulfate 325 mg (65 mg 325 mg PO HS ##0 08/09/16 11/13/22 09/02/22 21:30 iron) tablet cholecalciferol (vitamin D3) 25 6,000 unit PO QAM ##0 09/01/17 11/13/22 09/02/22 08:00 mcg (1,000 unit) tablet levothyroxine 112 mcg tablet 112 mcg PO QAM ##0 09/01/17 11/13/22 09/03/22 08:00 magnesium oxide 400 mg (241.3 mg 400 mg PO BID 04/06/19 11/13/22 09/02/22 21:30 magnesium) tablet fluticasone propionate 50 2 sprays intranasal DAILY PRN 08/11/19 11/13/22 09/03/22 08:00 mcg/actuation nasal Congestion spray,suspension rosuvastatin 10 mg tablet 10 mg PO HS 02/16/20 11/13/22 09/02/22 21:30 venlafaxine 75 mg capsule,extended 75 mg PO QAM 02/16/20 11/13/22 09/02/22 09:00 release 24 hr Medical Marijuana 1 dose inhalation UD PRN 07/09/21 11/13/22 07/30/22 anxiety/pain venlafaxine 37.5 mg tablet 37.5 mg PO QAM 08/24/21 11/13/22 09/02/22 09:00 insulin lispro 100 unit/mL 0 unit subcut ACHS 09/28/21 11/13/22 09/02/22 18:00 subcutaneous solution (Admelog U-) clonazepam 1 mg tablet 1 mg PO TID 11/04/21 11/13/22 09/02/22 21:30 insulin glargine 100 unit/mL (3 42 unit subcut HS 11/04/21 11/13/22 09/02/22 21:30 mL) subcutaneous pen (Lantus Solostar U-100 Insulin) metoprolol tartrate 25 mg tablet 25 mg PO BID 0411/13/22 09/03/22 08:00 fluticasone propionate 100 1 inh inhalation BID 07/30/22 11/13/22 09/03/22 08:00 mcg/actuation blister powder for inhalation (Flovent Diskus) furosemide 20 mg tablet (Lasix) 10 mg PO QAM 07/30/22 11/13/22 07/30/22 ipratropium bromide 42 mcg (0.06 2 spray intranasal BID 07/30/22 11/13/22 09/03/22 08:00 %) nasal spray omeprazole 40 mg capsule,delayed 40 mg PO BID #60 caps 08/02/22 11/13/22 09/03/22 08:00 release nitrofurantoin 100 mg PO BID #14 caps 08/08/22 11/13/22 09/02/22 21:30 monohydrate/macrocrystals 100 mg capsule (Macrobid) hydrocodone 5 mg-acetaminophen 325 1 tab PO Q4H PRN pain #8 tabs 09/03/22 11/13/22 Unknown mg tablet ibuprofen 200 mg tablet (Advil) 600 mg PO QID PRN fever or pain 09/03/22 11/13/22 Unknown #30 tabs linaclotide 145 mcg capsule 145 mcg PO QAM #90 caps 10/18/22 11/13/22 Unknown (Linzess) acetaminophen 500 mg tablet 1,000 mg PO Q8H PRN pain 11/13/22 11/13/22 Unknown (Tylenol Extra Strength) fluconazole 150 mg tablet 150 mg PO QAM 11/13/22 11/13/22 Unknown oxybutynin chloride 5 mg 5 mg PO QAM 11/13/22 11/13/22 Unknown tablet,extended release 24 hr Past Medical History Medical History Acquired deviated nasal septum No significant symptoms per patient Claustrophobia Significant - does have issues with oxygen mask at times Diabetes type 1, controlled IDDM Dyslipidemia Fatty liver Gastroparesis GERD (gastroesophageal reflux disease) Well controlled and stable Hiatal hernia Hypertension Hypothyroidism Intermittent palpitations Follows with Dr. 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) Morbid obesity Panic disorder with agoraphobia Uses medical marijuana only as needed PTSD (post-traumatic stress disorder) TMJ (dislocation of temporomandibular joint) Increased pain since intubated for MRI in [place] on 11/21/21 Just left sided jaw pain- no locking or clicking Past Family History Family History Sister Breast cancer Renal failure Brother Diabetes Trisomy 21 Son Diabetes Grandfather (Maternal) Heart disease Father Pernicious anemia Other Hypertension No family history of adverse response to anesthesia Past Surgical History Surgical History History of ankle surgery RT History of arthroscopy of left shoulder LMA# + PNB. History of delivery x4 History of colonoscopy History of cryosurgery cervix History of esophagogastroduodenoscopy (EGD) History of total adrenalectomy Hx of carpal tunnel repair left w/ulnar nerve transpostion S/P appendectomy lap appy 04/06/1919 Grade 2 view, MAC 3, ETT 7. S/P epidural steroid injection S/P trigger finger release Left thumb trigger release 03/22/21 MAC. Social History Smoking Status: Never smoker tobacco type: e-cigarettes Do You Dip or Chew Tobacco: No Hx Alcohol Use: Yes Alcohol type: wine alcohol intake frequency: other Alcohol Intake Frequency Comment: very rare Hx Substance Use: Yes (medical card) substance use type: marijuana Substance Use Type Other:: medical > uses at hs Last Used Substance Other:: none for last 2 1/2 months Lab Results Anesthesia Preop Results Results Anesthesia Widget: WBC 7.50 K/ul (4.8-10.8) 09/26/22 Hgb 14.2 g/dl (12.0-16.0) 09/26/22 Hct 41.6 % (34.1-44.9) 09/26/22 Plt 280 K/uL (130-400) 09/26/22 Na 139 mmol/L (136-145) 10/17/22 K 4.9 mmol/L (3.5-5.1) 10/17/22 Cl 103 mmol/L (98-107) 01/26/23 CO2 32 mmol/L (21-32) 10/17/22 BUN 15 mg/dl (6-23) 10/17/22 Creat 1.08 mg/dl (0.6-1.2) 10/17/22 Glucose Level 121 mg/dl (70-99(Fasting)) H 10/17/22 TSH 1.388 uIu/ml (0.300-4.500) 10/01/22 Urine Color Yellow 09/26/22 Urine Appearance Clear (Clear) 09/26/22 Urine pH 5.0 (4.5-7.5) 09/26/22 Urine Specific [place] 1.011 (1.000-1.030) 09/26/22 Urine Protein Negative (Negative) 09/26/22 Urine Glucose (UA) Negative (Negative) 09/26/22 Urine Ketones Negative (Negative) 09/26/22 Urine Blood Negative (Negative) 09/26/22 Urine Nitrite Negative (Negative) 09/26/22 Urine Bilirubin Negative (Negative) 09/26/22 Urine Urobilinogen Negative (Negative) 09/26/22 Urine Leukocyte Esterase Trace (Negative) H 09/26/22 Urine WBC (Auto) 5-10 /hpf (0-5) H 09/26/22 Urine RBC (Auto) 0-4 /hpf (0-4) 09/26/22 Urine Hyaline Casts (Auto) 1-5 /lpf (0-5) 09/26/22 Urine Epithelial Cells (Auto) >30 /lpf (0-5) H 09/26/22 Urine Bacteria (Auto) Negative (Negative) 09/26/22 Testing Electrocardiogram Date: 09/03/22 Findings: + SB @ (55bpm ) Otherwise normal EKG per cardio Chest X-Ray Date: 01/23/22 Findings: + NAD Echocardiogram Date:07/17/19 EF: 55 to 60% LV Function: normal RWMA: + none Other Findings: + LVH (Mild/concentric) Sclerotic aortic valve without significant stenosis.
[2022-11-19] MEDS ORDERED: LACTATED RINGER'S 1,000 ML IV SCH (06:00)
[2022-11-19] MEDS ORDERED: LR 15ML/HR IV SCH (06:00)
[2022-11-19] MEDS ORDERED: ceFAZolin 2000MG 2,000 MG/15 ML SYR IV SCH (06:00)
[2022-11-19] MEDS ORDERED: EPINEPHrine INJ 1 MG/ML AMP ONE (06:21)
[2022-11-19] MEDS ORDERED: ROPIVACAINE 0.5% 5 MG/ML 30 ML VIAL ONE (06:21)
[2022-11-19] MEDS ORDERED: DEXAMETHASONE SOD INJ 4 MG/ML VIAL ONE ×2 (06:21→07:22)
[2022-11-19] MEDS ORDERED: LIDOCAINE 1%/EPINEPHRINE 1:100,000 50 ML VIAL ONE (06:32)
[2022-11-19] MEDS ORDERED: EpINEphrine HCL INJ 1 MG/ML 1ML SYRINGE ONE (06:33)
--- NOTE | 2022-11-19 06:37 | History & Physical Bridge Note ---
Date of Service November 19, 2022 History & Physical Bridge Note I have examined the patient, reviewed the History & Physical and in the interval since the performance of the History & Physical I have noted the following changes of clinical significance: no changes noted
[2022-11-19] MEDS ORDERED: BUPIVACAINE 0.5 % 5 MG/1 ML MPF 30ML VIAL ONE (06:39)
[2022-11-19] MEDS ORDERED: MIDAZOLAM HCL 1 MG/ML 2ML VIAL ONE (06:44)
[2022-11-19] MEDS ORDERED: fentaNYL citrate 100 MCG/2 ML VIAL ONE (06:54)
[2022-11-19] MEDS ORDERED: PROPOFOL IV EMULSION 10 MG/ML 20 ML VIAL IV ONE ×4 (07:22→12:17)
[2022-11-19] MEDS ORDERED: SUCCINYLCHOLINE CHLORIDE 20 MG/ML 10 ML VIAL IV ONE (07:22)
[2022-11-19] MEDS ORDERED: ROCURONIUM BROMIDE 10 MG/ML 5 ML VIAL IV ONE (07:22)
[2022-11-19] MEDS ORDERED: PHENYLEPHRINE HCL 10 MG/ML VIAL ONE (07:31)
[2022-11-19] MEDS ORDERED: ePHEDrine sulfate 50 MG/ML AMP ONE (07:41)
[2022-11-19] MEDS ORDERED: ePHEDrine sulfate 50 MG/ML AMP IV PRN (07:56)
[2022-11-19] MEDS ORDERED: NALOXONE HCL 0.4 MG/1 ML VIAL/CARP IV PRN ×2 (07:56→18:34)
[2022-11-19] MEDS ORDERED: PROMETHAZINE HCL 12.5 MG in SODIUM CHLORIDE 0.9% 50 ML IV PRN (07:56)
[2022-11-19] MEDS ORDERED: fentaNYL citrate 100 MCG/2 ML VIAL IV PRN (07:56)
[2022-11-19] MEDS ORDERED: FLUMAZENIL 0.1 MG/1 ML 10 ML VIAL IV PRN (07:56)
[2022-11-19] MEDS ORDERED: GLYCOPYRROLATE 0.2 MG/ML VIAL ONE (08:37)
[2022-11-19] MEDS ORDERED: NEOSTIGMINE METHYLSULFATE 1 MG/ML 10ML VIAL ONE (08:37)
--- NOTE | 2022-11-19 09:06 | Operative Report ---
Post Operative Report Pre & Post Diagnosis Operation Date: 11/19/22 07:00 Pre-Op Diagnosis: Impingement of Right Shoulder, Right Acromioclavicular Joint Pain. Post-Op Diagnosis: Right shoulder AC joint pain. Biceps tendinosis. Partial-thickness tear of supraspinatus. Partial-thickness upper border tear of subscapularis. I identified the patient and participated in the time-out.: Yes Procedure Operation Date: 11/19/22 07:00 Actual Procedures p Right Shoulder Arthroscopy, Arthroscopic rotator cuff Repair subscapularis, distal Clavicle Excision, Biceps Tenotomy(Right) - Gume Dhillon MD Surgeon Gume Dhillon MD Licensed Nuclear Control Room Operator Yvette Joya no resident or fellow available Estimated Blood Loss 5 Findings Consistent with Post-Op Diagnosis Specimens Distal clavicle Anesthesia Type General Regional Complications none Disposition Accompanied Patient To Recovery: No Disposition: Recovery Room Indications The patient is 57 years old and has right shoulder pain secondary to rotator cuff impingement. Suspected partial-thickness rotator cuff tear and biceps pathology. This has been refractory to nonsurgical treatment and she is elected to proceed with operative intervention. Description of Procedure Informed consent obtained. Patient identified. She identified the operative site as the right shoulder. I marked with my initials. A preoperative surgical timeout was performed. A preop dose of IV antibiotics was given. She was taken to the operating room positioned in the beachchair position while awake and comfortably position. She was then returned to the supine position and anesthetized. The exam under anesthesia revealed full and equal range of motion of the shoulders. She was positioned beachchair with the neck held in neutral alignment the torso was secured to the table the heels were padded and knees were flexed. Kidney rest were utilized. The [employer] body positioner and tremano arm gonzalez. The arm was then prepped and draped in usual sterile fashion. DVT prophylaxis with foot pumps intraoperatively and ambulation postoperatively. Posterior soft spot viewing portal established followed by an anterior mid g lenoid working portal using the outside in technique. The articular surfaces of the glenoid and humeral head were normal. The labrum was intact circumferentially. The middle glenohumeral ligament inferior glenohumeral ligament and the axillary pouch were unremarkable. The posterior capsule and labrum were intact as visualized from the anterior portal. The posterior rotator cuff was intact. There was no ligament damage or avulsion. The biceps had significant partial-thickness fraying and when debrided this was 50% or more of the thickness of the biceps tendon. It was then tenotomized. There was a partial-thickness tear of the upper border the subscapularis. The tendon was intact intact attachment laterally however there was a high-grade partial- thickness tear of about a centimeter from superior to inferior located little bit more medially. There was also a partial-thickness tear of the leading edge of the supraspinatus tendon. This was debrided. This tear was about 10 to 15 mm in anterior to posterior length but the width was only 3 to 4 mm. There was good quality tendon tissue after debriding of the frayed tissue. The scope was placed in the subacromial space and the subacromial space was pristine. There is no bursitis and the rotator cuff was intact there was no evidence of impingement and I therefore left things as they were and did not perform a bursectomy as there was no bursitis or subacromial decompression as did not feel that it was indicated. There was no rotator cuff disease on the bursal surface. An accessory anterolateral portal was created using the outside in technique. This was then utilized to debride the subscapularis footprint. Curette was used followed by the shaver to excoriate the bone. A 4.5 mm bio composite twin fix anchor double loaded was then inserted percutaneously after using a spinal needle. This was inserted a little medial and superior to the anterior portal at the appropriate angle of inclination laterally. It was placed in the midportion of the partial-thickness tear. The scorpion was used to pass a horizontal mattress stitch up through the subscapularis tendon. 1 bite slightly medial superior and inferior and 1 by slightly lateral superior and inferior. Suture management was performed. Sutures were then tied through the anterior portal using the modified Gabe knot backed up with the alternating half hitches reversing the posts. This yielded a good secure repair. I then localized the distal clavicle with spinal needle. A 3 cm incision was made anterior to posterior overlying the distal clavicle. Blunt dissection was utilized down to the deltotrapezial fascia which was then divided in line with the incision. The AC joint was identified. The distal several centimeters of the clavicle were exposed. The distal 7 to 10 mm were then excised with an oscillating saw. Irrigation performed. Hemostasis. This was then closed with 0 Vicryl sutures for the deltotrapezial fascia followed by 2-0 Vicryl's full- thickness closure for the subcutaneous tissues. 4-0 nylon horizontal mattress stitches on the skin. Portal stitches on the portals. The shoulder was cleaned with dry sponges and a soft roll dressing was applied Xeroform 4 x 4's ABDs including the armpit. Foam tape UltraSling. Patient awakened from anesthesia without difficulty and taken to the recovery room in stable condition. There were no complications. The distal clavicle sent for specimen. It appeared physically unremarkable but arthritic. Blood loss estimated to be 5 cc. At the conclusion the operation spoke to patient's informed of my findings and postop instructions were given. The subscapularis tear was small and partial-thickness upper border. Plan will be to rehabilitate according to the arthroscopic rotator cuff repair protocol. She will do passive range of motion. Her external rotation will be limited to neutral for 4 weeks postoperatively then as tolerated. I attest to the content of the Intraoperative Record and any orders documented therein. Any exceptions are noted below.
[2022-11-19] MEDS ORDERED: oxyCODONE/ACETAMINOPHEN 5mg/325mg TAB PO PRN (09:14)
[2022-11-19] MEDS ORDERED: MoRPHine SULFATE 2 MG/ML CARP IV PRN (09:14)
[2022-11-19] MEDS ORDERED: MoRPHine SULFATE 4 MG/ML 1 ML CARP\\VIAL IV PRN (09:14)
--- NOTE | 2022-11-19 09:14 | Operative Report ---
Post Operative Report Pre & Post Diagnosis Operation Date: 11/19/22 07:00 Pre-Op Diagnosis: Impingement of Right Shoulder, Right Acromioclavicular Joint Pain. Post-Op Diagnosis: Impingement of Right Shoulder, Right Acromioclavicular Joint Pain. I identified the patient and participated in the time-out.: Yes Procedure Operation Date: 11/19/22 07:00 Actual Procedures p Right Shoulder Arthroscopy, Arthroscopic Rotor Cuff Repair, Distal Clavicle Excision, Biceps Tenotomy(Right) - Gume Dhillon MD Surgeon Gume Dhillon MD Entry Level Electrician Yvette Joya; PAStephanie no resident or fellow available Estimated Blood Loss 5 Findings Consistent with Post-Op Diagnosis Subscapularis tear Specimens None Anesthesia Type General Regional Description of Procedure Patient was taken to the operating room and placed under general anesthesia with a peripheral nerve block preoperatively. Time out was performed. She was given 2 g of IV Ancef for surgical prophylaxis. She was prepped and draped in routine sterile fashion. I was present during the entire case and assisted with positioning, instrumentation, fixation of the rotator cuff tear, distal clavicle excision, closure and dressings. Please see Dr. Dhillon's operative report for further detail. Patient was awakened and transferred to the cover room in stable condition. I attest to the content of the Intraoperative Record and any orders documented therein. Any exceptions are noted below.
[2022-11-19] MEDS: oxyCODONE/ACETAMINOPHEN 5mg/325mg TAB PO PRN ×2 (10:27→14:25)
--- NOTE | 2022-11-19 10:29 | Anesthesiology Progress Note ---
Date of Service November 19, 2022 Anesthesia Post Procedure Vital Signs Vital Signs: Temp Pulse Pulse Resp BP Pulse Ox O2 Del Method 11/19/22 10:05 36.8 C 81 18 166/74 H 94 Nasal Cannula 11/19/22 09:50 36.1 C L 81 20 161/76 H 93 Nasal Cannula 11/19/22 09:40 87 23 133/65 94 Oxymask 11/19/22 09:30 93 H 18 146/74 H 93 Oxymask 11/19/22 09:21 35.8 C L 102 H 20 156/75 H 97 Oxymask 11/19/22 06:11 37.1 C 71 20 180/75 H 95 Room Air O2 Flow Rate 11/19/22 10:05 2 11/19/22 09:50 2 11/19/22 09:40 6 11/19/22 09:30 10 11/19/22 09:21 10 11/19/22 06:11 Pain Intensity Right Shoulder: Pain Intensity: 7 Transfer of Care Handoff Completed per policy Notes Mental Status: alert / awake / arousable Patient Amnestic to Procedure: Yes Nausea / Vomiting: adequately controlled Pain: adequately controlled Airway Patency, RR, SpO2: stable & adequate BP & HR: stable & adequate Hydration State: stable & adequate Anesthetic Complications: no major complications apparent
[2022-11-19] MEDS ORDERED: ALBUTEROL 0.083% NEBU SOLN 3 ML VIAL NEB STA (12:23)
--- NOTE | 2022-11-19 15:10 | Communication Note ---
Date of Service: November 19, 2022 I have discussed w/ Dr Dhillon , the fact that this patient, w/ multiple co- morbidities,among which is MARSHA, is barely maintaining SPO2's at 90%, and is dipping below 90% to the mid 80's, and should remain in the hospital overnight and monitored w/ continuous pulse oximetry. Dr Dhillon will see patient in [facility] 1 after completing his 2nd TKA.
[2022-11-19] MEDS ORDERED: hydroCHLOROthiazide 25 MG TAB PO PRN (18:34)
[2022-11-19] MEDS ORDERED: traMADol HCL 50 MG TABLET PO PRN (18:34)
[2022-11-19] MEDS ORDERED: FLUTICASONE PROPIONATE NA SPR 16 GM BTL NAE PRN (18:34)
[2022-11-19] MEDS ORDERED: bisacodyL 10 MG SUPP PR PRN (18:34)
[2022-11-19] MEDS ORDERED: PHARMACY GLYCEMIC MGMT CONSULT PRN (18:34)
[2022-11-19] MEDS ORDERED: MAGNESIUM HYDROXIDE SUSP 30 ML UDC PO PRN (18:34)
--- NOTE | 2022-11-19 18:44 | Progress Notes ---
DATE OF SERVICE: 11/19/2022. I spoke with Dr. Baker from anesthesia. He expressed concern about Ulysses's saturations on room ai r as well as her history of sleep apnea and body habitus. Suggested that she be admitted to the hosp ital overnight, which we went ahead and did. I spoke with Ulysses. She was resting comfortably. Her p ain was well controlled. She was in no acute distress. I discussed with her the situation. Her arm is still blocked. She can feel a little bit and wiggle her fingers. Her hand is warm with good cap illary refill less than 2 seconds. She is afebrile. Her pulse is in the high 90s. Last blood press ure was 140/61. Her sat is 93 on 1 liter nasal cannula. On room air, she had dropped down to the low er 90s. Plan will be to do supplemental O2 overnight. Monitor pulse ox. Control pain. Reassess in the morning. Job ID: [id number]
[2022-11-19] MEDS: oxyCODONE HCL IR 5 MG TAB (IMMEDIATE RELEASE) PO PRN (19:28)
[2022-11-19] MEDS: SODIUM CHLORIDE 0.9% 1000ML 1,000 ML IV SCH (19:34)
[2022-11-19] MEDS: ceFAZolin 2000MG 2,000 MG/15 ML SYR IV SCH (19:38)
[2022-11-19] MEDS: IPRATROPIUM BROMIDE NASAL SPRAY 0.06% 15ML NAE SCH (20:27)
[2022-11-19] MEDS: ROSUVASTATIN CALCIUM 10 MG TAB PO SCH (20:28)
[2022-11-19] MEDS: PANTOprazole 40 MG TAB PO SCH (20:28)
[2022-11-19] MEDS: MAGNESIUM OXIDE 400 MG TAB PO SCH (20:29)
[2022-11-19] MEDS: lisinopril 10 MG TAB PO SCH (20:30)
[2022-11-19] MEDS: FERROUS SULFATE 325 MG TAB PO SCH (20:30)
[2022-11-19] MEDS: METOPROLOL TARTRATE 25 MG TAB PO SCH (20:30)
[2022-11-19] MEDS: DOCUSATE SODIUM 100 MG CAP PO SCH (20:31)
[2022-11-19] MEDS: FLUTICASONE FUROATE 100MCG 14 PUFFS/INHALER INH SCH (20:32)
[2022-11-19] MEDS: clonazePAM 1 MG TAB PO SCH (20:33)
[2022-11-19] MEDS ORDERED: LANTUS PER UNIT CHARGE SQ SCH (21:00)
[2022-11-19] MEDS: INSULIN ASPART PER UNIT SQ SCH (21:16)
[2022-11-20] MEDS ORDERED: INSULIN ASPART PER UNIT SQ SCH (02:00)
[2022-11-20] MEDS: ceFAZolin 2000MG 2,000 MG/15 ML SYR IV SCH (04:02)
[2022-11-20] MEDS: oxyCODONE HCL IR 5 MG TAB (IMMEDIATE RELEASE) PO PRN ×4 (04:40→19:43)
[2022-11-20] MEDS: LEVOTHYROXINE SODIUM 112 MCG TABLET PO SCH (05:08)
[2022-11-20] MEDS: SODIUM CHLORIDE 0.9% 1000ML 1,000 ML IV SCH (05:11)
[2022-11-20] MEDS ORDERED: VENLAFAXINE HCL 37.5 MG TAB PO SCH (09:00)
[2022-11-20] MEDS ORDERED: LANTUS PER UNIT CHARGE SQ ONE (09:00)
[2022-11-20] MEDS: INSULIN ASPART PER UNIT SQ SCH ×4 (09:04→21:07)
[2022-11-20] MEDS: clonazePAM 1 MG TAB PO SCH ×3 (09:07→20:16)
[2022-11-20] MEDS: DOCUSATE SODIUM 100 MG CAP PO SCH ×2 (09:08→20:32)
[2022-11-20] MEDS: FLUTICASONE FUROATE 100MCG 14 PUFFS/INHALER INH SCH (09:09)
[2022-11-20] MEDS: CHOLECALCIFEROL 1,000 UNITS 25 MCG TAB PO SCH (09:10)
[2022-11-20] MEDS: IPRATROPIUM BROMIDE NASAL SPRAY 0.06% 15ML NAE SCH ×2 (09:10→20:16)
[2022-11-20] MEDS: FUROSEMIDE 20 MG TAB PO SCH (09:11)
[2022-11-20] MEDS: VENLAFAXINE HCL XR 37.5 MG CAPXR PO SCH (09:11)
[2022-11-20] MEDS: OXYBUTYNIN CHLORIDE XL 5 MG TABCR PO SCH (09:11)
[2022-11-20] MEDS: PANTOprazole 40 MG TAB PO SCH ×2 (09:11→20:31)
[2022-11-20] MEDS: MULTIVITAMIN TAB PO SCH (09:11)
[2022-11-20] MEDS: LINACLOTIDE 145 MCG CAPSULE PO SCH (09:11)
[2022-11-20] MEDS: MAGNESIUM OXIDE 400 MG TAB PO SCH ×2 (09:11→20:31)
[2022-11-20] MEDS: LORATADINE 10 MG TAB PO SCH (09:11)
[2022-11-20] MEDS: VENLAFAXINE HCL XR 75 MG CAPXR PO SCH (09:11)
[2022-11-20] MEDS: METOPROLOL TARTRATE 25 MG TAB PO SCH ×2 (09:11→20:32)
--- NOTE | 2022-11-20 10:01 | Discharge Summary ---
Date of Service November 20, 2022 Discharge Data Procedures Performed Operation Date: 11/19/22 07:00 Actual Procedures p Right Shoulder Arthroscopy, Arthroscopic Rotor Cuff Repair, Distal Clavicle Excision, Biceps Tenotomy(Right) - Gume Dhillon MD Hospital Course (1) Hypoxia: Patient underwent an elective right shoulder arthroscopy, biceps tenotomy, rotator cuff repair and distal clavicle excision with Dr. Dhillon on November 19, 2022. Her surgery was performed at [facility] and was planned for an outpatient procedure. Postoperatively she developed hypoxia that was associated with probable sleep apnea. Her oxygen saturations was not able to stay in the 90s without supplemental oxygen via nasal cannula. Anesthesia recommended observation overnight. Patient was in agreement. She was kept in the hospital overnight for observation. She was placed on a continuous pulse ox. She was placed on oxygen continuously to keep her sats above 92. With the idea that she can transition off of them as appropriate. She was allowed out of bed as tolerated. She has a super sling on her right arm that is to remain on at all times. Her postoperative dressings remained in place. She was given a regular diet. Her home medications were continued. A glycemic consult was placed for inpatient management of her Diabetes. She was given pain medication. She did not require DVT prophylaxis as it was not indicated for this surgery. Postoperative day 1 she was doing well. She was off of her nasal cannula and supplemental oxygen. Her oxygen saturation remained in the 90s on room air. On POD 1 she complained of some facial and lip tingling, feeling like she couldn't catch her breath, and a headache. Hospitalist consult was placed for evaluation. Chest xray and Carotid ultrasounds were ordered due to carotid bruit. Chest xrays showed elevated right hemidiaphragm with right basilar linear densities. This favors subsegmental atelectasis. Stable mild cardiom egaly. Carotid studies were fine. She was cleared medically for discharge. Her pain was well controlled. She was discharged to her home in stable condition. Discharge instructions were provided. Postop follow-up has been scheduled. She understands and agrees with the plan.
--- NOTE | 2022-11-20 12:11 | Progress Notes ---
DATE OF SERVICE: 11/20/2022. The patient is resting comfortably in bed. She reports a little bit of a sensation of tingling aroun d her nose and upper lip. This could be from the tape used for her ET tube. She also has reported t hat she has coughed up a little bit of blood, which also I think likely from the endotracheal tube. Her sats have been good overnight. She is now 93% plus on room air. She does, however, report that it is difficult for her to take a deep breath and she feels slightly short of breath. We will go ahe ad and check a chest x-ray. She also notes ongoing tingling in her right arm, although the block is largely worn off. She is afebrile. Her vital signs are stable. Most recent set of vitals: Temperature 36.7, pulse 82, respirations 18, blood pressure 151/87, sat 92 on room air. Point of care glucose was 190. Her sling is adjusted. Dressing is clean, dry and intact. She has tingling and some numbness throug hout the entire arm. She has 5-/5 strength to testing of axillary, musculocutaneous, median, radial, and ulnar nerves. No significant swelling or bruising. Radial pulses 1+. She is stable, status post right shoulder surgery. Admitted for respiratory concerns. Currently, do ing well. We will go ahead and check a chest x-ray before she leaves to ensure that everything is we ll. If this is acceptable, then she will be discharged home. She will follow up with us and physica l therapy next week as scheduled. She will be on her regular medications and pain medicine as well a s a stool softener. If there are any problems with pain, fevers, swelling, etc., she will let us kno w and also if she has any difficulty with breathing or any other concerns. She can do active movemen t of hand and wrist. She will leave the sling and dressing intact until we see her on Friday. Job ID: [id number]
--- NOTE | 2022-11-20 12:21 | Pharmacy Report ---
Pharmacy Glycemic Short Note 2 - Date of Service November 20, 2022 - Glycemic Short BSG Results (Last 24 hours): 11/19/22 11/19/22 11/20/22 14:31 20:35 03:20 POC Glucose 210 H 184 H 198 H 11/20/22 11/20/22 08:19 11:51 POC Glucose 190 H 205 H OUTPATIENT ANTIDIABETIC REGIMEN: * Lantus 48 units HS * Novolog CR of 5 - TDD 70 units * HbA1C = 6.4% (08/05/22) ASSESSMENT: * Ms Marcum is a 57 y/o F with a PMH of T2DM who presents for shoulder surgery. Patient is POD 1. * Patient received dexamethasone 8 mg IV in the OR on POD 0. * BSGs prior to OR were 167 - 210 mg/dL. After OR, BSG was 184 mg/dL. * Patient received 28 units of Lantus and 3 units of Novolog. * Fasting today is 190 mg/dL. * Give 20 units this AM to make full HS dose. Will give lower dose of Lantus this evening to transition back to HS dosing. * Tightened Novolog to weight-based stress of ~3. PLAN FOR INPATIENT GLYCEMIC CONTROL * Basal insulin * Lantus 20 units SQ x 1 then 35 units SQ tonight * Bolus insulin * NovoLog per scale ACHS or Q6hrs while NPO * Goal Range: Low 110 mg/dL - High 140 mg/dL * Correction Factor: 18 mg/dL/unit * Nutritional / Prandial insulin per carb ratio of 1 unit per 5 grams CHO consumed
--- NOTE | 2022-11-20 12:54 | Hospitalist Consultation ---
Date of Consultation November 20, 2022 Assessment & Plan (1) Shortness of breath: CXR with right hemidiaphragm postoperatively reviewed CXR images - encouraging incentive spirometry/flutter valve - Mucinex as needed - Patient was saturating well on RA - recommend only titrate O2 to maintain O2 sats 89 - 94% (2) Right carotid bruit: - Obtain right carotid Doppler exam (3) Headache: Possibly atypical migraine vs anxiety (patient refused her Klonopin this AM) (4) Panic disorder with agoraphobia: Patient follows with psychologist Continue Venlafaxin and Klonopin (5) PTSD (post-traumatic stress disorder): see above #4 (6) Diabetes type 1, controlled: Controlled Last HgbA1C Jul 2022 - 6.4 (7) Long QT syndrome: Follows yearly with [facility] cardiology (8) Dyslipidemia: Continue Rosuvastatin Last Lipid profile Jul 2022 (9) Hypothyroidism: Last TSH normal 1.388 Sep 2022 Continue Levothyroxine 112 mcg daily Supervising Physician Co-Signing Physician Notes Patient seen and examined, chart reviewed, case discussed with Stacy Willis PA-C and I agree with the assessment and plan as above except as otherwise noted Labs and images reviewed. Ulysses is a 57-year-old female with a past medical history of reflux, anxiety, fatty liver disease, TMJ, SNHL, type I DM, long QT, hypothyroidism, hypertension, panic disorder with agoraphobia and PTSD, gastroparesis in the setting of DM who was it had admitted by orthopedics for right shoulder arthroplasty. Postoperatively patient had some concern of headache with numbness and tingling of her lips with shortness of breath, we have been consulted for medical management and evaluation. On discussion with DARLENE no neurologic symptoms were noted, however patient with a possible right- sided carotid bruit in the supine position. Refused Klonopin this AM for concern of coadminitration with pain medications. Normally on TID with hx of panic and PTSD takes regularly. Pt was with SpO2 in high 80s --> 1L O2, was taken off O2 and was in low 90s but anxious in room. Tingling in upper lips in setting of hyperventilation with anxiety off oxygen, was not hypoxic <90 off oxygen. CXR: Elevated right hemidiaphragm with right basilar linear density suspect vicious for atelectasis, stable mild cardiomegaly. No evidence of edema. Postoperative changes overlying right shoulder are appreciated. BS. Suspect symptoms and tingling are due to anxiety with hyperventilation in the setting of PTSD/anxiety with chronic benzodiazepine with doses held and situational anxiety around being in the hospital with history of thermophobia/agoraphobia. Can resume clonazepam. Patient is with a mild elevated hemidiaphragm postoperatively, encouraging incentive spirometry/flutter valve. Likely due to nerve block, should resolve with time. Patient is maintaining adequate saturations on room air, would titrate oxygen only if needed to maintain levels between 89-94%. No signs of focal neurologic deficits/stroke pathology. We will follow-up with carotid ultrasounds given concern for bruit on physical exam. At bedside exam diminished movement in the right base, otherwise lungs are without wheezing/rales/rhonchi. Skin is warm and dry. Right shoulder surgical site intact with dressing in place, C/D/I. Sensation in fingertips is intact, slowly returning but still somewhat diminished in fourth and fifth digit. History of Present Illness Requesting Physician: Telma Joya Attending Physician: Gume Dhillon MD History of Present Illness Ulysses Marcum is a 57 year old female with a past medica l history of HTN, Hypothyroidism, Dyslipidemia, prolonged QT syndrome, PTSD, and Diabetes Type I who was admitted 11/19/22 for elective right shoulder arthroscopic surgery. She underwent right shoulder arthroscopy, arthroscopic rotator cuff repair subscapularis, distal clavicle excsion, biceps tenotomy right on 11/19/22. Patient had some low pulse ox in the upper 80s (88) and was placed on 1 L O2 and saturations improved into the high 90s. She was taken off the O2 and was saturating in the low to mid 90s and she complained of SOB, Headache in the frontal aaspect, nausea and numbness in her top lip. She was asking to be placed back on the O2. She currently in on 1 L NC and saturating in mid to high 90s. She tells me she is already feeling better back on the Oxygen. The ortho service consulted hospitalist for evaluation. They ordered a CXR. Patient has a hx of anxiety and PTSD. Per nursing she refused her Klonopin this AM. She denies any vomiting but admits to some mild nausea. She denies any chest pain, vision changes, weakness or any other paresthesias, except to her upper lip that has since resolved. Patient denies ever having migraines or headaches in the past. She tells me that she is scheduled for a sleep study because her PCP feels she may have sleep apnea. Patient admits to some mild congestion and cough. She tells me she is trying to do the incentive spirometer but thinks it is hard. Allergies Allergy/AdvReac Type Severity Reaction Status Date / Time gabapentin Allergy Severe Hallucinati Verified 11/19/22 06:02 ons homatropine Allergy Severe Anaphylactic Verified 11/19/22 06:02 Shock hydrocodone Allergy Severe Anaphylactic Verified 11/19/22 06:02 Shock erythromycin base Allergy Intermediate Rash Verified 11/19/22 06:02 hydromorphone Allergy Intermediate Confusion Verified 11/19/22 06:02 methylprednisolone Allergy Intermediate Rash Verified 11/19/22 06:02 ondansetron Allergy Intermediate "Cardiac Verified 11/19/22 06:02 symptoms" Sulfa (Sulfonamide Allergy Intermediate Rash Verified 11/19/22 06:02 Antibiotics) codeine Allergy Unknown listed in Verified 11/19/22 06:02 cardio records Home Medications Medication Instructions Recorded Confirmed Type lisinopril 10 mg tablet 10 mg PO HS ##0 11/12/14 11/19/22 History hydrochlorothiazide 25 mg tablet 25 mg PO DAILY PRN Fluid Retention 07/29/16 11/19/22 History ##0 loratadine 10 mg tablet (Claritin) 10 mg PO QAM ##0 07/29/16 11/19/22 History ferrous sulfate 325 mg (65 mg 325 mg PO HS ##0 08/09/16 11/19/22 History iron) tablet cholecalciferol (vitamin D3) 25 6,000 unit PO QAM ##0 09/01/17 11/19/22 History mcg (1,000 unit) tablet levothyroxine 112 mcg tablet 112 mcg PO QAM ##0 09/01/17 11/19/22 History magnesium oxide 400 mg (241.3 mg 400 mg PO BID 04/06/19 11/19/22 History magnesium) tablet fluticasone propionate 50 2 sprays intranasal DAILY PRN 08/11/19 11/19/22 History mcg/actuation nasal Congestion spray,suspension rosuvastatin 10 mg tablet 10 mg PO HS 02/16/20 11/19/22 History venlafaxine 75 mg capsule,extended 75 mg PO QAM 02/16/20 11/19/22 History release 24 hr Medical Marijuana 1 dose inhalation UD PRN 07/09/21 11/19/22 History anxiety/pain venlafaxine 37.5 mg tablet 37.5 mg PO QAM 08/24/21 11/19/22 History insulin lispro 100 unit/mL 3 unit subcut ACHS 09/28/21 11/19/22 History subcutaneous solution (Admelog U-) clonazepam 1 mg tablet 1 mg PO TID 11/04/21 11/19/22 History insulin glargine 100 unit/mL (3 42 unit subcut HS 11/04/21 11/19/22 History mL) subcutaneous pen (Lantus Solostar U-100 Insulin) metoprolol tartrate 25 mg tablet 25 mg PO BID 12/25/21 11/19/22 History fluticasone propionate 100 1 inh inhalation BID 07/30/22 11/19/22 History mcg/actuation blister powder for inhalation (Flovent Diskus) furosemide 20 mg tablet (Lasix) 10 mg PO QAM 07/30/22 11/19/22 History ipratropium bromide 42 mcg (0.06 2 spray intranasal BID 07/30/22 11/19/22 History %) nasal spray omeprazole 40 mg capsule,delayed 40 mg PO BID #60 caps 08/02/22 11/19/22 Rx release hydrocodone 5 mg-acetaminophen 325 1 tab PO Q4H PRN pain #8 tabs 09/03/22 11/19/22 Rx mg tablet ibuprofen 200 mg tablet (Advil) 600 mg PO QID PRN fever or pain 09/03/22 11/19/22 Rx #30 tabs linaclotide 145 mcg capsule 145 mcg PO QAM #90 caps 10/18/22 11/19/22 Rx (Linzess) acetaminophen 500 mg tablet 1,000 mg PO Q8H PRN pain 11/13/22 11/19/22 History (Tylenol Extra Strength) fluconazole 150 mg tablet 150 mg PO QAM 11/13/22 11/19/22 History oxybutynin chloride 5 mg 5 mg PO QAM 11/13/22 11/19/22 History tablet,extended release 24 hr hydrocodone 5 mg-acetaminophen 325 1 tab PO Q4H PRN pain #18 tabs 11/19/22 Rx mg tablet Patient History Medical History (Updated 11/20/22 @ 13:45 by Erika Willis PA-C) Acquired deviated nasal septum No significant symptoms per patient Claustrophobia Significant - does have issues with oxygen mask at times Diabetes type 1, controlled IDDM Dyslipidemia Fatty liver Gastroparesis GERD (gastroesophageal reflux disease) Well controlled and stable Headache Hiatal hernia Hypertension Hypothyroidism Intermittent palpitations Follows with Dr. 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 History of delivery x4 History of colonoscopy History of cryosurgery cervix History of esophagogastroduodenoscopy (EGD) History of total adrenalectomy Hx of carpal tunnel repair left w/ulnar nerve transpostion S/P appendectomy lap appy 04/06/1919 Grade 2 view, MAC 3, ETT 7. S/P epidural steroid injection S/P trigger finger release Left thumb trigger release 03/22/21 MAC. Family History Sister Breast cancer Renal failure Brother Diabetes Trisomy 21 Son Diabetes Grandfather (Maternal) Heart disease Father Pernicious anemia Other Hypertension No family history of adverse response to anesthesia Social History Smoking Status: Never smoker Tobacco Type: E-cigarettes / Vaping Second Hand Exposure: No; Do You Dip or Chew Tobacco: No; Tobacco Cessation Education Requested by Patient: No Hx Alcohol Use: Yes Alcohol type: wine Hx Substance Use: Yes (medical card) Last Used Substance Other:: none for last 2 1/2 months Substance Use Type Other:: medical > uses at hs Preferred Language: Sami Communication Ability: Effective Wet Inspector Optical Glass Required: No Beliefs That Will Affect Care: None Current Living Situation: Spouse and Family Other Information That Helps Us Care for You: No Feels Safe at Home: Yes Safety Concerns: Feels Safe At This Time Assistive Devices: None Review of Systems Review of Systems: All ROS negative except what was listed + above. Physical Exam Constitutional: WD/WN, vitals as above Eyes: PERRL, conjunctivae normal, anicteric sclerae ENMT: external ear and nose normal, oropharynx normal Neck: trachea midline, no thyromegaly Respiratory: normal respiratory effort, lungs clear to auscultation Cardiovascular: Rate/Rhythm: regular rate and regular rhythm Vessels: + carotid bruit Extremities: normal capillary refill; no calf tenderness and no edema bruit heard on right when laying Gastrointestinal (Abdomen): normal bowel sounds, soft, nontender, no hepatosplenomegaly obese Musculoskeletal: Right shoulder dressing intact site clean and dry, sling in place Skin: no rashes, warm and dry Neurologic: patellar DTR's 2+ bilat, sensation intact and PERRL, EOMI, accommodation nl, no face palsy, no dysarthria Psychiatric: A+Ox3, euthymic affect Results & Data Results & Data ([facility]) Vital Signs (Past 12 Hours) Vital Signs Temp Pulse Resp BP Pulse Ox Pulse Ox O2 Del Method 11/20/22 07:30 36.7 C 82 18 151/87 H 92 Room Air 11/20/22 07:30 92 11/20/22 02:38 36.8 C 85 18 105/57 L 92 Room Air O2 Del Method 11/20/22 07:30 11/20/22 07:30 Room Air 11/20/22 02:38 Laboratory Results Abnormal lab results 11/19/22 11/19/22 11/20/22 Range/Units 14:31 20:35 03:20 POC Glucose 210 H 184 H 198 H (70-99) mg/dl 11/20/22 11/20/22 Range/Units 08:19 11:51 POC Glucose 190 H 205 H (70-99) mg/dl Diagnostic Findings Chest X-Ray 11/20/22 11:15 XR chest 2V PA/lateral HISTORY: short of breath COMPARISON: Chest 01/23/2022. FINDINGS: Elevated right hemidiaphragm with right basilar linear densities. No pneumothorax. No pleural effusions. The heart is mildly enlarged. No evidence for pulmonary edema. Soft tissue gas overlying the right shoulder suggesting recent postoperative change. IMPRESSION: 1. Elevated right hemidiaphragm with right basilar linear densities. This favors subsegmental atelectasis. 2. Stable mild cardiomegaly. ACT 112: Negative or not required by law. Electronically signed by: Curry Monson M.D. 11/20/2022 1:03 PM PG Care Time/CCT Total # of Minutes Spent Total Time Spent with Patient: Total time spent is greater than 50% in coordination of care (as documented) at patient's floor/unit and/or counseling patient: Coding Level of Care Code 31059 IN/OBS CONSULT LVL 4,60M Medical Decision Making Moderate Complexity Diagnoses Shortness of breath R06.02 Right carotid bruit R09.89 Headache R51.9 Panic disorder with agoraphobia F40.01 PTSD (post-traumatic stress disorder) F43.10 Diabetes type 1, controlled E10.9 Long QT syndrome I45.81 Dyslipidemia E78.5 Hypothyroidism E03.8; E06.3 Hypothyroidism type: due to Jose's thyroiditis (9) Hypothyroidism Hypothyroidism type: due to Jose's thyroiditis Qualified Code(s): E03.8 - Other specified hypothyroidism; E06.3 - Autoimmune thyroiditis
--- NOTE | 2022-11-20 13:04 | XRay Report ---
XR chest 2V PA/lateral HISTORY: short of breath COMPARISON: Chest 01/23/2022. FINDINGS: Elevated right hemidiaphragm with right basilar linear densities. No pneumothorax. No pleur al effusions. The heart is mildly enlarged. No evidence for pulmonary edema. Soft tissue gas overlyin g the right shoulder suggesting recent postoperative change. IMPRESSION: 1. Elevated right hemidiaphragm with right basilar linear densities. This favors subsegmental atelect asis. 2. Stable mild cardiomegaly. ACT 112: Negative or not required by law. Electronically signed by: Curry Monson M.D. 11/20/2022 1:03 PM
[2022-11-20] MEDS ORDERED: guaiFENesin 600 MG TABCR PO PRN (13:11)
[2022-11-20] MEDS ORDERED: PYRIDOXINE HCL 50 MG TAB PO ONE (13:30)
--- NOTE | 2022-11-20 17:27 | Ultrasound Report ---
BILATERAL CAROTID DOPPLER STUDY HISTORY: right carotid bruit COMPARISON: None. TECHNIQUE: Real-time, grayscale, and color Doppler sonography of the carotid arteries was performed. Imaging reviewed in the transverse and longitudinal planes. All measurements were calculated based on NASCET criteria. FINDINGS: Antegrade flow is seen in the bilateral vertebral arteries. Mildly elevated peak systolic velocities within the bilateral external carotid arteries measuring 138 cm/s on the right and 146 cm/s within the right left. The peak systolic velocity within the right ICA is 101 cm/s. The right systolic ratio is 1.0. The peak systolic velocity within the left ICA is 82 cm/s. The left systolic ratio is 0.6. IMPRESSION: 1. No hemodynamically significant stenosis seen within the bilateral common or internal carotid arter ies arteries. 2. Slightly elevated peak systolic velocities within the bilateral external carotid arteries suggesti ng mild stenosis. ACT 112: Negative or not required by law. Electronically signed by: Curry Monson M.D. 11/20/2022 5:25 PM
[2022-11-20] MEDS: ROSUVASTATIN CALCIUM 10 MG TAB PO SCH (20:31)
[2022-11-20] MEDS: lisinopril 10 MG TAB PO SCH (20:31)
[2022-11-20] MEDS: FERROUS SULFATE 325 MG TAB PO SCH (20:32)
[2022-11-20] MEDS ORDERED: LANTUS PER UNIT CHARGE SQ SCH (21:00)
[2022-11-21] MEDS: oxyCODONE HCL IR 5 MG TAB (IMMEDIATE RELEASE) PO PRN ×3 (01:04→11:19)
[2022-11-21] MEDS: LEVOTHYROXINE SODIUM 112 MCG TABLET PO SCH (06:05)
[2022-11-21] MEDS: METOPROLOL TARTRATE 25 MG TAB PO SCH (09:03)
[2022-11-21] MEDS: CHOLECALCIFEROL 1,000 UNITS 25 MCG TAB PO SCH (09:03)
[2022-11-21] MEDS: DOCUSATE SODIUM 100 MG CAP PO SCH (09:04)
[2022-11-21] MEDS: LINACLOTIDE 145 MCG CAPSULE PO SCH (09:04)
[2022-11-21] MEDS: LORATADINE 10 MG TAB PO SCH (09:04)
[2022-11-21] MEDS: MAGNESIUM OXIDE 400 MG TAB PO SCH (09:04)
[2022-11-21] MEDS: FUROSEMIDE 20 MG TAB PO SCH (09:04)
[2022-11-21] MEDS: OXYBUTYNIN CHLORIDE XL 5 MG TABCR PO SCH (09:04)
[2022-11-21] MEDS: PANTOprazole 40 MG TAB PO SCH (09:04)
[2022-11-21] MEDS: VENLAFAXINE HCL XR 37.5 MG CAPXR PO SCH (09:04)
[2022-11-21] MEDS: MULTIVITAMIN TAB PO SCH (09:04)
[2022-11-21] MEDS: IPRATROPIUM BROMIDE NASAL SPRAY 0.06% 15ML NAE SCH (09:10)
[2022-11-21] MEDS: FLUTICASONE FUROATE 100MCG 14 PUFFS/INHALER INH SCH (09:10)
[2022-11-21] MEDS: clonazePAM 1 MG TAB PO SCH (09:11)
[2022-11-21] MEDS: INSULIN ASPART PER UNIT SQ SCH ×2 (09:12→12:38)
[2022-11-21] MEDS: VENLAFAXINE HCL XR 75 MG CAPXR PO SCH (10:17)
== END 2022-11-21 12:48 | disposition home or self-care (01) ==
LOC: ASU 05:49 → 3N 16:20 → INTOOBSV 16:20

== ENCOUNTER 2023-01-02 15:36 | Observation (INO) ==
[2023-01-02 16:16] LABS: iSTAT Creatinine 0.9 mg/dl (0.6-1.3); iSTAT Hemoglobin 13.9 g/dl (12.0-16.0); iSTAT Ionized Calcium 1.25 mmol/l (1.12-1.32); iSTAT Potassium 3.6 mmol/L (3.3-5.0)
--- NOTE | 2023-01-02 16:19 | XRay Report ---
XR chest 1V not portable CLINICAL HISTORY: Chest pain, nonspecific. Shortness of breath. COMPARISON STUDY: Chest CT December 14, 2021. Chest radiograph November 20, 2022. FINDINGS: Lung volumes are normal. Lungs are clear. There is no pneumothorax or pleural effusion. Car diac size is stable. Mediastinal contours are normal. There is no evidence for pulmonary edema. IMPRESSION: No acute cardiopulmonary findings. ACT 112: Negative or not required by law. Electronically signed by: Ok ePrez M.D. 01/02/2023 4:18 PM
[2023-01-02 16:30] LABS: Albumin Globulin Ratio 1.6 (0.9-2); Albumin Level 4.5 gm/dl (3.4-5.0); BUN Creatinine Ratio 11.2 (10-20); Bilirubin,Total 0.7 mg/dl (0.2-1.0); Calcium 9.7 mg/dl (8.6-10.3); Creatinine Clr Calc Pharmacy 82.9 ml/min; Est GFR (Non-African American) 72.5 ml/min; Globulin 2.9 gm/dl (2.5-4.0); Potassium 3.7 mmol/L (3.5-5.1); Total Protein 7.4 gm/dl (6.0-8.3)
[2023-01-02 16:37] LABS: Troponin I High Sensitivity 6.7 pg/ml (0-14)
[2023-01-02 16:38] LABS: Basophils # (auto) 0.03 K/uL (0-0.2); Basophils % (auto) 0.4 %; Eosinophils # (auto) 0.08 K/uL (0-0.50); Eosinophils % (auto) 1.2 %; Hematocrit (blood only) 39.8 % (37.0-47.0); Hemoglobin 13.2 g/dl (12.0-16.0); Immature Granulocytes # (auto) 0.02 K/uL (0.01-0.20); Immature Granulocytes % (auto) 0.3 %; Lymphocytes # (auto) 2.89 K/uL (1.2-3.4); Lymphocytes % (auto) 41.8 %; Mean Corpuscular Hemoglobin 30.1 pg (25.0-34.0); Mean Corpuscular Hgb Conc 33.2 g/dL (32.0-36.0); Mean Corpuscular Volume 90.9 fL (80.0-100.0); Mean Platelet Volume 9.7 fL (9.4-12.4); Monocytes # (auto) 0.45 K/uL (0.11-0.59); Monocytes % (auto) 6.5 %; Neutrophils # (auto) 3.45 K/uL (1.40-6.50); Neutrophils % (auto) 49.8 %; Platelet Count 249 K/uL (130-400); RDW Standard Deviation 42.8 fL (36.4-46.3); Red Blood Count 4.38 M/uL (4.20-5.40); White Blood Count 6.92 K/ul (4.8-10.8)
[2023-01-02 16:46] LABS: Partial Thromboplastin Time 27.5 Seconds (21.0-31.0); Prothrombin Time 10.9 Seconds (9.0-12.0)
[2023-01-02] MEDS ORDERED: ASPIRIN CHEW 324 MG PO STA (17:06)
--- NOTE | 2023-01-02 17:07 | Emergency Department Note ---
Impression & Plan Chest pain, Shortness of breath ED Provider Note NAME: LEANN LAZAR AGE: 57 SEX: F : 1965 ARRIVES VIA: Walk-In INFORMANT: Patient ED PROVIDER(S): Real Mccoy DO CHIEF COMPLAINT: chest pain and SOB with exertion HPI: Patient is a 57-year-old female with a past medical history of diabetes, hypertension, hyperlipidemia who presents to the ER for exertional chest pain and shortness of breath. She has been getting this for the past month and a half. It is becoming much more frequent. She notes when she gets up and walks now even with short distance she gets short of breath and that she gets a sharp stabbing pain as well as some neck pain. It resolves with rest. Denies any belly pain, nausea, vomiting, or diarrhea. She also admits to some swelling in her legs specifically the right leg which been going on for over a month as well. No dysuria, urgency, or frequency. PAST MEDICAL HISTORY:See Below PAST SURGICAL HISTORY:See Below FAMILY HISTORY:See Below SOCIAL HISTORY:See Below HOME MEDICATIONS:See Below ALLERGIES:See Below VITALS:See Below PHYSICAL EXAMINATION: GENERAL: Sitting up in bed, alert, well appearing, well nourished, no distress, non-toxic EYE EXAM: normal conjunctiva. OROPHARYNX: no exudate, no erythema, lips, buccal mucosa, and tongue normal and mucous membranes are moist NECK: supple, no nuchal rigidity, no adenopathy, non-tender LUNGS: Clear to auscultation. Normal chest wall mechanics HEART: no murmurs, S1 normal and S2 normal ABDOMEN: abdomen soft, non-tender, normo-active bowel sounds, no masses, no rebound or guarding. UPPER EXTREMITIES: upper extremities are grossly normal. LOWER EXTREMITIES: Right calf slightly larger than left NEURO EXAM: Normal sensorium, cranial nerves II-XII grossly intact, normal speech, no gross weakness of arms, no gross weakness of legs. MEDICAL DECISION MAKING: Patient is a 57-year-old female who presents ER for above-stated complaint. IV was established blood work was obtained. External records were reviewed. She admits to exertional shortness of breath with some intermittent chest pain and left arm tightness/pain. Labs show no significant leukocytosis or anemia. INR unremarkable. D-dimer was elevated. BMP along LFTs bilirubin was unremarkable. Troponin was negative. Patient was pain-free. COVID-negative. UA was contaminated. Duplex of lower extremity was negative. CT angio of the chest was clean. Patient was updated bedside discussed with the hospitalist for further evaluation and observation. Triage Nursing notes reviewed. Limited review of prior medical records performed Vital Signs: reviewed and remarkable for HTN Differential diagnosis: Cardiac ischemia, aortic dissection, pulmonary embolism, pneumothorax, pneumonia, pericarditis, myocarditis, esophageal rupture, GERD, cholecystitis, pancreatitis, musculoskeletal, as well as other pathologies. ER treatment provided: See below Diagnostics interpreted by me include EKG and cardiac monitoring as listed below: -Cardiac Monitoring: An order was placed for continuous cardiac monitoring. The monitor shows a rate of 80 with sinus rhythm. -ECG: Sinus rhythm rate 86 Normal axis No PVCs Nonspecific ST wave changes in the lateral leads and inferior leads QTc 43 -Laboratory studies:Interpreted by me as stated above in MDM and shown below. Imaging studies: Xrays: As interpreted by me: Portable AP upright 1 view of the chest shows no pneumonia CTs show: CT angio chest shows no PE Duplex lower extremity was negative Consultation(s): As described in MDM Procedures:none Critical Care: [None] Past Med/Surg History Medical History (Updated 01/02/23 @ 21:05 by Real Mccoy DO) Acquired deviated nasal septum No significant symptoms per patient Claustrophobia Significant - does have issues with oxygen mask at times Diabetes type 1, controlled IDDM Dyslipidemia Fatty liver Gastroparesis GERD (gastroesophageal reflux disease) Well controlled and stable Headache Hiatal hernia Hypertension Hypothyroidism Intermittent palpitations Follows with Dr. 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 History of delivery x4 History of colonoscopy History of cryosurgery cervix History of esophagogastroduodenoscopy (EGD) History of total adrenalectomy Hx of carpal tunnel repair left w/ulnar nerve transpostion S/P appendectomy lap appy 04/06/1919 Grade 2 view, MAC 3, ETT 7. S/P epidural steroid injection S/P trigger finger release Left thumb trigger release 03/22/21 MAC. Family History Sister Breast cancer Renal failure Brother Diabetes Trisomy 21 Son Diabetes Grandfather (Maternal) Heart disease Father Pernicious anemia Other Hypertension No family history of adverse response to anesthesia Social History Smoking Status: Never smoker Tobacco Type: E-cigarettes / Vaping Second Hand Exposure: No; Hx Alcohol Use: Yes Alcohol type: wine Hx Substance Use: Yes (medical card) Last Used Substance Other:: none for last 2 1/2 months Substance Use Type Other:: medical > uses at hs Preferred Language: Citizen Of [place] Communication Ability: Effective Mixer Attendant Required: No Beliefs That Will Affect Care: None Current Living Situation: Spouse and Family Feels Safe at Home: Yes Assistive Devices: None Allergies Allergies Allergy/AdvReac Type Severity Reaction Status Date / Time gabapentin Allergy Severe Hallucinati Verified 01/02/23 18:19 ons homatropine Allergy Severe Anaphylactic Verified 01/02/23 18:19 Shock hydrocodone Allergy Severe Anaphylactic Verified 01/02/23 18:19 Shock erythromycin base Allergy Intermediate Rash Verified 01/02/23 18:19 hydromorphone Allergy Intermediate Confusion Verified 01/02/23 18:19 methylprednisolone Allergy Intermediate Rash Verified 01/02/23 18:19 ondansetron Allergy Intermediate "Cardiac Verified 01/02/23 18:19 symptoms" Sulfa (Sulfonamide Allergy Intermediate Rash Verified 01/02/23 18:19 Antibiotics) codeine Allergy Unknown listed in Verified 01/02/23 18:19 cardio records Home Meds Home Medications Medication Instructions Recorded Confirmed lisinopril 10 mg tablet 10 mg PO HS ##0 11/12/14 01/02/23 loratadine 10 mg tablet (Claritin) 10 mg PO QAM ##0 07/29/16 01/02/23 levothyroxine 112 mcg tablet 112 mcg PO QAM ##0 09/01/17 01/02/23 venlafaxine 75 mg capsule,extended 75 mg PO QAM 02/16/20 01/02/23 release 24 hr Medical Marijuana 1 dose inhalation UD PRN 07/09/21 01/02/23 anxiety/pain venlafaxine 37.5 mg tablet 37.5 mg PO QAM 08/24/21 01/02/23 clonazepam 1 mg tablet 1 mg PO TID PRN Anxiety 11/04/21 01/02/23 ipratropium bromide 42 mcg (0.06 2 spray intranasal BID 07/30/22 01/02/23 %) nasal spray oxybutynin chloride 5 mg 5 mg PO QAM 11/13/22 01/02/23 tablet,extended release 24 hr albuterol sulfate 90 mcg/actuation 2 puff inhalation QID PRN Wheezing 01/02/23 01/02/23 aerosol inhaler ergocalciferol (vitamin D2) 1,250 1,250 mcg PO WK 01/02/23 01/02/23 mcg (50,000 unit) capsule fluticasone propionate 100 1 inh inhalation BID 01/02/23 01/02/23 mcg/actuation blister powder for inhalation (Flovent Diskus) furosemide 40 mg tablet 40 mg PO DAILY 01/02/23 01/02/23 insulin aspart U-100 100 unit/mL See Rx Instructions .Route .COMPLEX 01/02/23 01/02/23 (3 mL) subcutaneous pen insulin glargine 100 unit/mL (3 20 unit subcut DAILY 01/02/23 01/02/23 mL) subcutaneous pen (Lantus Solostar U-100 Insulin) linaclotide 145 mcg capsule 145 mcg PO QAM 01/02/23 01/02/23 (Linzess) metoclopramide HCl 5 mg tablet 5 mg PO Q12 01/02/23 01/02/23 metoprolol tartrate 50 mg tablet 50 mg PO BID 01/02/23 01/02/23 nystatin 100,000 unit/gram topical 1 applic topical UD 01/02/23 01/02/23 cream promethazine 12.5 mg tablet 12.5 mg PO Q6 PRN Nausea And 01/02/23 01/02/23 Vomiting rosuvastatin 20 mg tablet 20 mg PO HS 01/02/23 01/02/23 Previous Rx's Medication Instructions Recorded ibuprofen 200 mg tablet (Advil) 600 mg PO QID PRN fever or pain 09/03/22 #30 tabs omeprazole 40 mg capsule,delayed 40 mg PO BID #60 caps 12/10/22 release Results & Data (ED) Vital Signs Vital Signs - 24 hr 01/02/23 15:36 01/02/23 17:06 01/02/23 17:08 Temperature 36.9 C Temperature Source Oral Pulse Rate 89 Pulse Rate [Apical] 79 Pulse Rate from SpO2 Sensor Pulse Rhythm [Apical] Regular Pulse Strength [Apical] Normal Respiratory Rate 20 20 Respiratory Effort / Characteristics Non-Labored Spontaneous Non-Labored Respiratory Depth Normal Normal Respiratory Pattern Regular Blood Pressure 171/81 H Blood Pressure [Right Arm] 158/76 H Blood Pressure Mean 111 Blood Pressure Mean [Right Arm] 103 Pulse Oximetry 98 94 Oxygen Delivery Method Room Air Room Air Room Air Sepsis Recent Fever Within 48 Hours No Sepsis New/Unexplained Change in Mental Status No Sepsis Action Taken by Nursing No Action Required 01/02/23 16:55 01/02/23 16:56 01/02/23 17:00 Temperature Temperature Source Pulse Rate 79 80 Pulse Rate [Apical] Pulse Rate from SpO2 Sensor 81 Pulse Rhythm [Apical] Pulse Strength [Apical] Respiratory Rate 15 Respiratory Effort / Characteristics Respiratory Depth Respiratory Pattern Blood Pressure 158/76 H Blood Pressure [Right Arm] Blood Pressure Mean 103 Blood Pressure Mean [Right Arm] Pulse Oximetry 98 Oxygen Delivery Method Sepsis Recent Fever Within 48 Hours Sepsis New/Unexplained Change in Mental Status Sepsis Action Taken by Nursing 01/02/23 17:00 01/02/23 17:10 01/02/23 17:43 Temperature Temperature Source Pulse Rate 79 80 81 Pulse Rate [Apical] Pulse Rate from SpO2 Sensor 78 80 79 Pulse Rhythm [Apical] Pulse Strength [Apical] Respiratory Rate 19 17 19 Respiratory Effort / Characteristics Respiratory Depth Respiratory Pattern Blood Pressure Blood Pressure [Right Arm] Blood Pressure Mean Blood Pressure Mean [Right Arm] Pulse Oximetry 95 93 92 Oxygen Delivery Method Sepsis Recent Fever Within 48 Hours Sepsis New/Unexplained Change in Mental Status Sepsis Action Taken by Nursing 01/02/23 17:44 01/02/23 17:44 01/02/23 17:50 Temperature Temperature Source Pulse Rate 78 81 Pulse Rate [Apical] Pulse Rate from SpO2 Sensor 78 Pulse Rhythm [Apical] Pulse Strength [Apical] Respiratory Rate 22 19 Respiratory Effort / Characteristics Respiratory Depth Respiratory Pattern Blood Pressure 113/64 Blood Pressure [Right Arm] Blood Pressure Mean 80 Blood Pressure Mean [Right Arm] Pulse Oximetry 95 Oxygen Delivery Method Sepsis Recent Fever Within 48 Hours Sepsis New/Unexplained Change in Mental Status Sepsis Action Taken by Nursing 01/02/23 18:00 01/02/23 18:00 01/02/23 18:10 Temperature Temperature Source Pulse Rate 79 81 Pulse Rate [Apical] Pulse Rate from SpO2 Sensor 78 86 Pulse Rhythm [Apical] Pulse Strength [Apical] Respiratory Rate 17 21 Respiratory Effort / Characteristics Respiratory Depth Respiratory Pattern Blood Pressure 133/76 Blood Pressure [Right Arm] Blood Pressure Mean 95 Blood Pressure Mean [Right Arm] Pulse Oximetry 95 97 Oxygen Delivery Method Sepsis Recent Fever Within 48 Hours Sepsis New/Unexplained Change in Mental Status Sepsis Action Taken by Nursing 01/02/23 18:20 01/02/23 18:30 Temperature Temperature Source Pulse Rate 80 78 Pulse Rate [Apical] Pulse Rate from SpO2 Sensor 78 Pulse Rhythm [Apical] Pulse Strength [Apical] Respiratory Rate 23 21 Respiratory Effort / Characteristics Respiratory Depth Respiratory Pattern Blood Pressure 168/81 H Blood Pressure [Right Arm] Blood Pressure Mean 110 Blood Pressure Mean [Right Arm] Pulse Oximetry 97 97 Oxygen Delivery Method Room Air Sepsis Recent Fever Within 48 Hours Sepsis New/Unexplained Change in Mental Status Sepsis Action Taken by Nursing Laboratory Data 01/02/23 15:53 01/02/23 15:53 Lab Results 01/02/23 01/02/23 01/02/23 Range/Units 15:53 15:53 15:53 WBC 6.92 (4.8-10.8) K/ul RBC 4.38 (4.20-5.40) M/uL Hgb 13.2 (12.0-16.0) g/dl POC Hgb (12.0-16.0) g/dl Hct 39.8 (37.0-47.0) % POC Hct (37-47) % MCV 90.9 (80.0-100.0) fL MCH 30.1 (25.0-34.0) pg MCHC 33.2 (32.0-36.0) g/dL RDW Std Deviation 42.8 (36.4-46.3) fL RDW Coeff of [place]ma 13.0 (11.5-14.5) % Plt Count 249 (130-400) K/uL MPV 9.7 (9.4-12.4) fL Immature Gran % (Auto) 0.3 % Neut % (Auto) 49.8 % Lymph % (Auto) 41.8 % Brown % (Auto) 6.5 % Eos % (Auto) 1.2 % Baso % (Auto) 0.4 % Neut # (Auto) 3.45 (1.40-6.50) K/uL Lymph # (Auto) 2.89 (1.2-3.4) K/uL Brown # (Auto) 0.45 (0.11-0.59) K/uL Eos # (Auto) 0.08 (0-0.50) K/uL Baso # (Auto) 0.03 (0-0.2) K/uL Immature Gran # (Auto) 0.02 (0.01-0.20) K/uL PT 10.9 (9.0-12.0) Seconds INR 1.0 (0.9-1.1) APTT 27.5 (21.0-31.0) Seconds PTT Ratio 1.0 D-Dimer (0-500) ug/L FEU POC Sodium (135-144) mmol/L Sodium 139 (136-145) mmol/L POC Potassium (3.3-5.0) mmol/L Potassium 3.7 (3.5-5.1) mmol/L POC Chloride (101-112) mmol/L Chloride 104 (98-107) mmol/L Carbon Dioxide 28 (21-32) mmol/L POC Total CO2 (24-31) mmol/L Anion Gap 7 (3-11) POC Anion Gap (16-25) mmol/L POC BUN (7-18) mg/dl BUN 10 (6-23) mg/dl Creatinine 0.89 (0.6-1.2) mg/dl POC Creatinine (0.6-1.3) mg/dl Est Cr Clr Drug Dosing 82.9 ml/min Est GFR ( Amer) 84.0 ml/min Est GFR (Non-Af Amer) 72.5 ml/min BUN/Creatinine Ratio 11.2 (10-20) Glucose 230 H (70-99(Fasting)) mg/dl POC Glucose (other) (70-99) mg/dl Calcium 9.7 (8.6-10.3) mg/dl POC Ioniz Calcium Grace (1.12-1.32) mmol/l Total Bilirubin 0.7 (0.2-1.0) mg/dl AST 21 (13-39) U/L ALT 22 (7-52) U/L Alkaline Phosphatase 71 (34-104) U/L Troponin I High Sens 6.7 (0-14) pg/ml Total Protein 7.4 (6.0-8.3) gm/dl Albumin 4.5 (3.4-5.0) gm/dl Globulin 2.9 (2.5-4.0) gm/dl Albumin/Globulin Ratio 1.6 (0.9-2) Urine Color Urine Appearance (Clear) Urine pH (4.5-7.5) Ur Specific Pana (1.000-1.030) Urine Protein (Negative) Urine Glucose (UA) (Negative) Urine Ketones (Negative) Urine Blood (Negative) Urine Nitrite (Negative) Urine Bilirubin (Negative) Urine Urobilinogen (Negative) Ur Leukocyte Esterase (Negative) Urine WBC (Auto) (0-5) /hpf Urine RBC (Auto) (0-4) /hpf U Hyaline Cast (Auto) (0-5) /lpf U Epithel Cells (Auto) (0-5) /lpf Urine Bacteria (Auto) (Negative) SARS-CoV-2, RNA, NAAT (NEGATIVE) 01/02/23 01/02/23 01/02/23 Range/Units 15:53 16:03 16:49 WBC (4.8-10.8) K/ul RBC (4.20-5.40) M/uL Hgb (12.0-16.0) g/dl POC Hgb 13.9 (12.0-16.0) g/dl Hct (37.0-47.0) % POC Hct 41 (37-47) % MCV (80.0-100.0) fL MCH (25.0-34.0) pg MCHC (32.0-36.0) g/dL RDW Std Deviation (36.4-46.3) fL RDW Coeff of Alma (11.5-14.5) % Plt Count (130-400) K/uL MPV (9.4-12.4) fL Immature Gran % (Auto) % Neut % (Auto) % Lymph % (Auto) % Brown % (Auto) % Eos % (Auto) % Baso % (Auto) % Neut # (Auto) (1.40-6.50) K/uL Lymph # (Auto) (1.2-3.4) K/uL Brown # (Auto) (0.11-0.59) K/uL Eos # (Auto) (0-0.50) K/uL Baso # (Auto) (0-0.2) K/uL Immature Gran # (Auto) (0.01-0.20) K/uL PT (9.0-12.0) Seconds INR (0.9-1.1) APTT (21.0-31.0) Seconds PTT Ratio D-Dimer 820 H* (0-500) ug/L FEU POC Sodium 140 (135-144) mmol/L Sodium (136-145) mmol/L POC Potassium 3.6 (3.3-5.0) mmol/L Potassium (3.5-5.1) mmol/L POC Chloride 101 (101-112) mmol/L Chloride (98-107) mmol/L Carbon Dioxide (21-32) mmol/L POC Total CO2 26 (24-31) mmol/L Anion Gap (3-11) POC Anion Gap 18.0 (16-25) mmol/L POC BUN 9 (7-18) mg/dl BUN (6-23) mg/dl Creatinine (0.6-1.2) mg/dl POC Creatinine 0.9 (0.6-1.3) mg/dl Est Cr Clr Drug Dosing ml/min Est GFR ( Amer) ml/min Est GFR (Non-Af Amer) ml/min BUN/Creatinine Ratio (10-20) Glucose (70-99(Fasting)) mg/dl POC Glucose (other) 231 H (70-99) mg/dl Calcium (8.6-10.3) mg/dl POC Ioniz Calcium Grace 1.25 (1.12-1.32) mmol/l Total Bilirubin (0.2-1.0) mg/dl AST (13-39) U/L ALT (7-52) U/L Alkaline Phosphatase (34-104) U/L Troponin I High Sens (0-14) pg/ml Total Protein (6.0-8.3) gm/dl Albumin (3.4-5.0) gm/dl Globulin (2.5-4.0) gm/dl Albumin/Globulin Ratio (0.9-2) Urine Color Yellow Urine Appearance Clear (Clear) Urine pH 7.5 (4.5-7.5) Ur Specific Pana 1.008 (1.000-1.030) Urine Protein Negative (Negative) Urine Glucose (UA) Negative (Negative) Urine Ketones Negative (Negative) Urine Blood Negative (Negative) Urine Nitrite Negative (Negative) Urine Bilirubin Negative (Negative) Urine Urobilinogen Negative (Negative) Ur Leukocyte Esterase 2+ H (Negative) Urine WBC (Auto) 5-10 H (0-5) /hpf Urine RBC (Auto) 0-4 (0-4) /hpf U Hyaline Cast (Auto) 1-5 (0-5) /lpf U Epithel Cells (Auto) >30 H (0-5) /lpf Urine Bacteria (Auto) 1+ H (Negative) SARS-CoV-2, RNA, NAAT (NEGATIVE) 01/02/23 Range/Units 17:11 WBC (4.8-10.8) K/ul RBC (4.20-5.40) M/uL Hgb (12.0-16.0) g/dl POC Hgb (12.0-16.0) g/dl Hct (37.0-47.0) % POC Hct (37-47) % MCV (80.0-100.0) fL MCH (25.0-34.0) pg MCHC (32.0-36.0) g/dL RDW Std Deviation (36.4-46.3) fL RDW Coeff of [place] (11.5-14.5) % Plt Count (130-400) K/uL MPV (9.4-12.4) fL Immature Gran % (Auto) % Neut % (Auto) % Lymph % (Auto) % Brown % (Auto) % Eos % (Auto) % Baso % (Auto) % Neut # (Auto) (1.40-6.50) K/uL Lymph # (Auto) (1.2-3.4) K/uL Brown # (Auto) (0.11-0.59) K/uL Eos # (Auto) (0-0.50) K/uL Baso # (Auto) (0-0.2) K/uL Immature Gran # (Auto) (0.01-0.20) K/uL PT (9.0-12.0) Seconds INR (0.9-1.1) APTT (21.0-31.0) Seconds PTT Ratio D-Dimer (0-500) ug/L FEU POC Sodium (135-144) mmol/L Sodium (136-145) mmol/L POC Potassium (3.3-5.0) mmol/L Potassium (3.5-5.1) mmol/L POC Chloride (101-112) mmol/L Chloride (98-107) mmol/L Carbon Dioxide (21-32) mmol/L POC Total CO2 (24-31) mmol/L Anion Gap (3-11) POC Anion Gap (16-25) mmol/L POC BUN (7-18) mg/dl BUN (6-23) mg/dl Creatinine (0.6-1.2) mg/dl POC Creatinine (0.6-1.3) mg/dl Est Cr Clr Drug Dosing ml/min Est GFR ( Amer) ml/min Est GFR (Non-Af Amer) ml/min BUN/Creatinine Ratio (10-20) Glucose (70-99(Fasting)) mg/dl POC Glucose (other) (70-99) mg/dl Calcium (8.6-10.3) mg/dl POC Ioniz Calcium Grace (1.12-1.32) mmol/l Total Bilirubin (0.2-1.0) mg/dl AST (13-39) U/L ALT (7-52) U/L Alkaline Phosphatase (34-104) U/L Troponin I High Sens (0-14) pg/ml Total Protein (6.0-8.3) gm/dl Albumin (3.4-5.0) gm/dl Globulin (2.5-4.0) gm/dl Albumin/Globulin Ratio (0.9-2) Urine Color Urine Appearance (Clear) Urine pH (4.5-7.5) Ur Specific Pana (1.000-1.030) Urine Protein (Negative) Urine Glucose (UA) (Negative) Urine Ketones (Negative) Urine Blood (Negative) Urine Nitrite (Negative) Urine Bilirubin (Negative) Urine Urobilinogen (Negative) Ur Leukocyte Esterase (Negative) Urine WBC (Auto) (0-5) /hpf Urine RBC (Auto) (0-4) /hpf U Hyaline Cast (Auto) (0-5) /lpf U Epithel Cells (Auto) (0-5) /lpf Urine Bacteria (Auto) (Negative) SARS-CoV-2, RNA, NAAT NEGATIVE (NEGATIVE) Administered Medications Discontinued Medications Aspirin (Aspirin Chew 324 Mg) 324 mg PO NOW STA Stop: 01/02/23 17:07 Last Admin: 01/02/23 17:44 Dose: 324 mg Documented By: RSL Ioversol (Optiray 320 500ml) 112 ml IV ONCE ONE Stop: 01/02/23 18:56 Last Admin: 01/02/23 18:55 Dose: 112 ml Documented By: SHOBHA Imaging Data Radiologist's Impression: Chest X-Ray 01/02/23 15:42 XR chest 1V not portable CLINICAL HISTORY: Chest pain, nonspecific. Shortness of breath. COMPARISON STUDY: Chest CT December 14, 2021. Chest radiograph November 20, 2022. FINDINGS: Lung volumes are normal. Lungs are clear. There is no pneumothorax or pleural effusion. Cardiac size is stable. Mediastinal contours are normal. There is no evidence for pulmonary edema. IMPRESSION: No acute cardiopulmonary findings. ACT 112: Negative or not required by law. Electronically signed by: Ok Perez M.D. 01/02/2023 4:18 PM Venous Doppler Study 01/02/23 17:01 RIGHT LOWER EXTREMITY VENOUS DOPPLER CLINICAL HISTORY: Right lower extremity swelling. COMPARISON STUDY: Bilateral lower extremity venous Doppler January 09, 2022. TECHNIQUE: Sonography of the deep venous system of the right lower extremity was performed. Compression and augmentation were evaluated. FINDINGS: The right common femoral, superficial femoral and popliteal veins were compressible. Augmentation was normal. Flow was shown within the deep calf vessels. IMPRESSION: No evidence of deep venous thrombus within the right lower extremity. ACT 112: Negative or not required by law. Electronically signed by: Ok Perez M.D. 01/02/2023 5:40 PM Chest CTA 01/02/23 18:26 CT ANGIOGRAPHY OF THE CHEST, PULMONARY EMBOLUS PROTOCOL CLINICAL HISTORY: Tachycardia. Left-sided chest pain. Evaluate for pulmonary embolus. COMPARISON STUDY: Chest CT December 14, 2021. Chest radiograph performed earlier today. TECHNIQUE: Following IV administration of 112 mL of Optiray, helical axial images of the chest were obtained utilizing the pulmonary embolus protocol. Maximal intensity projections and sagittal and coronal reformats were viewed on an independent 3D workstation. IV contrast was administered without complication. Automated exposure control was utilized for the study. A dose lowering technique was utilized adhering to the principles of ALARA. CT DOSE: 1034.80 mGy.cm FINDINGS: No pulmonary emboli are identified. There is no thoracic aortic dissection. Mild cardiomegaly is unchanged. There is no pneumothorax or pleural effusion. There is no consolidation to suggest pneumonia. Central airways are patent. No acute fractures within the bony thorax are present. Visualized portions of the upper abdomen are unremarkable. IMPRESSION: 1. No pulmonary emboli identified. 2. No acute intrathoracic findings. ACT 112: Negative or not required by law. Electronically signed by: Ok Perez M.D. 01/02/2023 7:23 PM Discharge Plan Visit Data Chief Complaint: Shortness of Breath/Dyspnea Stated Complaint: SOB,NAUSEA,NECK PAIN,HEART RACING ED Provider: Real Mccoy Discharge Problem: Chest pain, Shortness of breath Patient Disposition: Admitted As Inpatient Discharge Instructions Interventions: ED Discharge Assessment Last Done: 01/02/23 19:42
--- NOTE | 2023-01-02 17:41 | Ultrasound Report ---
RIGHT LOWER EXTREMITY VENOUS DOPPLER CLINICAL HISTORY: Right lower extremity swelling. COMPARISON STUDY: Bilateral lower extremity venous Doppler January 09, 2022. TECHNIQUE: Sonography of the deep venous system of the right lower extremity was performed. Compress ion and augmentation were evaluated. FINDINGS: The right common femoral, superficial femoral and popliteal veins were compressible. Augme ntation was normal. Flow was shown within the deep calf vessels. IMPRESSION: No evidence of deep venous thrombus within the right lower extremity. ACT 112: Negative or not required by law. Electronically signed by: Ok Perez M.D. 01/02/2023 5:40 PM
[2023-01-02 17:45] LABS: D Dimer 820 ug/L FEU (0-500)
[2023-01-02 18:16] LABS: Appearance Urine Clear (Clear); Bacteria Urine Automated 1+ (Negative); Bilirubin Urine Negative (Negative); Blood Urine Negative (Negative); Color Urine Yellow; Epithelial Cell Urine Auto >30 /lpf (0-5); Glucose Urine UA Negative (Negative); Ketones Urine Negative (Negative); Leukocyte Esterase Urine 2+ (Negative); Nitrite Urine Negative (Negative); Protein Urine Negative (Negative); RBC Urine Automated 0-4 /hpf (0-4); Specific Gravity Urine 1.008 (1.000-1.030); Urobilinogen Urine Negative (Negative); pH Urine 7.5 (4.5-7.5)
--- NOTE | 2023-01-02 18:31 | History & Physical Report ---
Date of Service January 02, 2023 Assessment & Plan (1) Shortness of breath: Plan: Exertional chest pain with shortness of breath With increasing frequency and exercise limitation, chest pain and now radiating to the neck Resolves with rest High-sensitivity troponin 6.7 on admission EKG NSR, nonspecific ST changes without territorial depression/elevation, QTc 483 D-dimer 820, venous Dopplers Negative CTA ordered Troponin trended, initial high-sensitivity troponin is normal No hypoxia, no tachycardia on admission Saw Dr. Stout previously for QT syndrome, palpitations consistent with PVCs. Was recommended to increase beta-blockers to 50 mg metoprolol twice daily, and special monitoring of QT with caution to any prolonging medications. Reportedly was going to [place] for GI issues. Received full dose aspirin x1 on admit TTE 2019: EF 55 to 60%, no regional wall motion abnormalities. Sclerotic aortic valve without stenosis, normal RVSP. Trace mitral regurg. Suspect may have PE in the setting of right leg swelling, elevated D-dimer, and dyspnea which improves but does not completely resolved with rest and chest pain which is also worsened with deep inspiration. We will follow for CTA, if PE is present start standard dose of rivaroxaban, per review of [facility] 2020 recs reasonable to use without dose adjustment for BMI 44. 15mg BID x21 days then 20mg daily. If no PE seen continue cardiac work-up, if troponin normal follow-up stress test. History of PVCs, long QT Continue metoprolol tartrate 50 mg p.o. twice daily Hyperlipidemia, BMI 44 Continue rosuvastatin 20 mg p.o. 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 Angeles - No focal weakness, no acute change at this time Asthma Well-controlled on Flovent, no wheezing DVT prophylaxis: Lovenox versus therapeutic based on CTA results Diet: DM CODE STATUS: Full code Disposition: Medical telemetry for chest pain eval (2) GERD (gastroesophageal reflux disease): (3) Long QT syndrome: (4) Diabetes mellitus with insulin therapy: (5) Hypothyroidism: (6) Hypertension: (7) Lumbar radiculopathy: History of Present Illness Primary Care Provider: Kassy Clark DO Vika is a 57-year-old female who presents with shortness of breath. She is past history of DM, hyperlipidemia, hypertension. Patient reports increasingly frequent exertional chest pain with associated shortness of breath which now occurs even walking short distances and which radiates to her neck and consistently resolves with rest. Mild right leg swelling in the last month. Had [facility] [place]trasound for US of the stomach with gastroparesis. Is scheduled for gastric bipass and had a stomach ultrasound scheduled when she developed hest pain and shortness of breath and was recommended to be seen in the ER. She notes walking, bending over makes her heart race and she gets chest pain, and some shortness of breath. Previously woul dhave episodes rarely, and could use a treadmill without difficulty but in the last few months and especially the last week is very dyspneic with a racing heart just walking short distances. +R leg swelling x2 weeks. No pain. Denies hx of heart failure. Takes lasix for fluid overload after taking tylenol. STopped taking several weeks and has not had problems with swelling other than her R leg. Denies orthopnea. Takes flovent for asthma, no recent wheezing. Medical History: Reviewed Medications: Reviewed Surgical History: Reviewed Family history: Reviewed Allergies: Reviewed Social History: No recent medical marijuana use, used several months ago. No tobacco use. Rare social Etoh. Code Status: Full Code Allergies Allergy/AdvReac Type Severity Reaction Status Date / Time gabapentin Allergy Severe Hallucinati Verified 01/02/23 18:19 ons homatropine Allergy Severe Anaphylactic Verified 01/02/23 18:19 Shock hydrocodone Allergy Severe Anaphylactic Verified 01/02/23 18:19 Shock erythromycin base Allergy Intermediate Rash Verified 01/02/23 18:19 hydromorphone Allergy Intermediate Confusion Verified 01/02/23 18:19 methylprednisolone Allergy Intermediate Rash Verified 01/02/23 18:19 ondansetron Allergy Intermediate "Cardiac Verified 01/02/23 18:19 symptoms" Sulfa (Sulfonamide Allergy Intermediate Rash Verified 01/02/23 18:19 Antibiotics) codeine Allergy Unknown listed in Verified 01/02/23 18:19 cardio records Home Medications Medication Instructions Recorded Confirmed Type lisinopril 10 mg tablet 10 mg PO HS ##0 11/12/14 01/02/23 History loratadine 10 mg tablet (Claritin) 10 mg PO QAM ##0 07/29/16 01/02/23 History levothyroxine 112 mcg tablet 112 mcg PO QAM ##0 09/01/17 01/02/23 History venlafaxine 75 mg capsule,extended 75 mg PO QAM 02/16/20 01/02/23 History release 24 hr Medical Marijuana 1 dose inhalation UD PRN 07/09/21 01/02/23 History anxiety/pain venlafaxine 37.5 mg tablet 37.5 mg PO QAM 08/24/21 01/02/23 History clonazepam 1 mg tablet 1 mg PO TID PRN Anxiety 11/04/21 01/02/23 History ipratropium bromide 42 mcg (0.06 2 spray intranasal BID 07/30/22 01/02/23 History %) nasal spray ibuprofen 200 mg tablet (Advil) 600 mg PO QID PRN fever or pain 09/03/22 01/02/23 Rx #30 tabs oxybutynin chloride 5 mg 5 mg PO QAM 11/13/22 01/02/23 History tablet,extended release 24 hr omeprazole 40 mg capsule,delayed 40 mg PO BID #60 caps 12/10/22 01/02/23 Rx release albuterol sulfate 90 mcg/actuation 2 puff inhalation QID PRN Wheezing 01/02/23 01/02/23 History aerosol inhaler ergocalciferol (vitamin D2) 1,250 1,250 mcg PO WK 01/02/23 01/02/23 History mcg (50,000 unit) capsule fluticasone propionate 100 1 inh inhalation BID 01/02/23 01/02/23 History mcg/actuation blister powder for inhalation (Flovent Diskus) furosemide 40 mg tablet 40 mg PO DAILY 01/02/23 01/02/23 History insulin aspart U-100 100 unit/mL See Rx Instructions .Route .COMPLEX 01/02/23 01/02/23 History (3 mL) subcutaneous pen insulin glargine 100 unit/mL (3 20 unit subcut DAILY 01/02/23 01/02/23 History mL) subcutaneous pen (Lantus Solostar U-100 Insulin) linaclotide 145 mcg capsule 145 mcg PO QAM 01/02/23 01/02/23 History (Linzess) metoclopramide HCl 5 mg tablet 5 mg PO Q12 01/02/23 01/02/23 History metoprolol tartrate 50 mg tablet 50 mg PO BID 01/02/23 01/02/23 History nystatin 100,000 unit/gram topical 1 applic topical UD 01/02/23 01/02/23 History cream promethazine 12.5 mg tablet 12.5 mg PO Q6 PRN Nausea And 01/02/23 01/02/23 History Vomiting rosuvastatin 20 mg tablet 20 mg PO HS 01/02/23 01/02/23 History Past Med/Surg History Medical History (Updated 01/02/23 @ 18:43 by Gume Eddy MD) Acquired deviated nasal septum No significant symptoms per patient Claustrophobia Significant - does have issues with oxygen mask at times Diabetes type 1, controlled IDDM Dyslipidemia Fatty liver Gastroparesis GERD (gastroesophageal reflux disease) Well controlled and stable Headache Hiatal hernia Hypertension Hypothyroidism Intermittent palpitations Follows with Dr. 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 History of delivery x4 History of colonoscopy History of cryosurgery cervix History of esophagogastroduodenoscopy (EGD) History of total adrenalectomy Hx of carpal tunnel repair left w/ulnar nerve transpostion S/P appendectomy lap appy 04/06/1919 Grade 2 view, MAC 3, ETT 7. S/P epidural steroid injection S/P trigger finger release Left thumb trigger release 03/22/21 MAC. 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 NAD. Cooperative. HEENT: Atraumatic, normocephalic. Vision/hearing intact. Pulm: CTAB A&P. -wheezes, -rales, -rhonchi. Symmetrical chest rise. No increased work of breathing. No respiratory distress. Cardiac: RRR, -mrg. Radial pulses intact and symmetrical. Abdominal: Nontender, nondistended, soft. BS present. Ext: RLE with 1+ pitting edema. Sensation.strength grossly intact. Results & Data Results & Data Vital Signs (Past 12 Hours) Vital Signs Temp Pulse Pulse Resp BP BP Pulse Ox 01/02/23 16:55 79 01/02/23 17:08 01/02/23 17:06 79 20 158/76 H 94 01/02/23 15:36 36.9 C 89 20 171/81 H 98 O2 Del Method 01/02/23 16:55 01/02/23 17:08 Room Air 01/02/23 17:06 Room Air 01/02/23 15:36 Room Air PG Care Time/CCT Total # of Minutes Spent Total Time Spent with Patient: Total time spent is greater than 50% in coordination of care (as documented) at patient's floor/unit and/or counseling patient: Coding Level of Care Code 34165 INT INP/OBS CARE 3/75MIN Diagnoses Shortness of breath R06.02 GERD (gastroesophageal reflux disease) K21.9 Long QT syndrome I45.81 Diabetes mellitus with insulin therapy E11.9; Z79.4 Hypothyroidism E03.8; E06.3 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
[2023-01-02] MEDS ORDERED: OPTIRAY 320 500ml IV ONE (18:55)
--- NOTE | 2023-01-02 19:26 | CT Scan Report ---
CT ANGIOGRAPHY OF THE CHEST, PULMONARY EMBOLUS PROTOCOL CLINICAL HISTORY: Tachycardia. Left-sided chest pain. Evaluate for pulmonary embolus. COMPARISON STUDY: Chest CT December 14, 2021. Chest radiograph performed earlier today. TECHNIQUE: Following IV administration of 112 mL of Optiray, helical axial images of the chest were o btained utilizing the pulmonary embolus protocol. Maximal intensity projections and sagittal and cor onal reformats were viewed on an independent 3D workstation. IV contrast was administered without co mplication. Automated exposure control was utilized for the study. A dose lowering technique was ut ilized adhering to the principles of ALARA. CT DOSE: 1034.80 mGy.cm FINDINGS: No pulmonary emboli are identified. There is no thoracic aortic dissection. Mild cardiomeg araceli is unchanged. There is no pneumothorax or pleural effusion. There is no consolidation to suggest pneumonia. Central airways are patent. No acute fractures within the bony thorax are present. Visuali zed portions of the upper abdomen are unremarkable. IMPRESSION: 1. No pulmonary emboli identified. 2. No acute intrathoracic findings. ACT 112: Negative or not required by law. Electronically signed by: Ok Perez M.D. 01/02/2023 7:23 PM
[2023-01-02] MEDS ORDERED: GLUCAGON FOR INJ 1 MG VIAL SQ PRN (20:55)
[2023-01-02] MEDS ORDERED: CARBOHYDRATES FOR HYPOGLYCEMIA PO PRN (20:55)
[2023-01-02] MEDS ORDERED: ACETAMINOPHEN 325 MG TAB PO PRN (20:55)
[2023-01-02] MEDS ORDERED: GLUCOSE 10 TAB/TUBE PO PRN (20:55)
[2023-01-02] MEDS ORDERED: GLUCOSE 40% GEL 15 GM TUBE PO PRN (20:55)
[2023-01-02] MEDS ORDERED: clonazePAM 1 MG TAB PO PRN (20:55)
[2023-01-02] MEDS ORDERED: ALBUTEROL HFA 8 GM INHALER INH PRN (20:55)
[2023-01-02] MEDS ORDERED: DEXTROSE 50% 50 ML SYRINGE IV PRN (20:55)
[2023-01-02] MEDS ORDERED: lisinopril 10 MG TAB PO SCH (21:00)
[2023-01-02] MEDS: INSULIN ASPART PER UNIT CHARGE SC SCH (21:16)
[2023-01-02] MEDS: METOPROLOL TARTRATE 50 MG TAB PO SCH (22:14)
[2023-01-02] MEDS: ROSUVASTATIN CALCIUM 20 MG TAB PO SCH (22:14)
[2023-01-03 04:06] LABS: Basophils # (auto) 0.02 K/uL (0-0.2); Basophils % (auto) 0.3 %; Eosinophils # (auto) 0.09 K/uL (0-0.50); Eosinophils % (auto) 1.3 %; Immature Granulocytes # (auto) 0.01 K/uL (0.01-0.20); Immature Granulocytes % (auto) 0.1 %; Lymphocytes # (auto) 2.81 K/uL (1.2-3.4); Lymphocytes % (auto) 40.8 %; Mean Corpuscular Hemoglobin 29.9 pg (25.0-34.0); Mean Corpuscular Hgb Conc 33.3 g/dL (32.0-36.0); Mean Corpuscular Volume 89.8 fL (80.0-100.0); Mean Platelet Volume 9.7 fL (9.4-12.4); Monocytes # (auto) 0.52 K/uL (0.11-0.59); Monocytes % (auto) 7.5 %; Neutrophils # (auto) 3.44 K/uL (1.40-6.50); Platelet Count 235 K/uL (130-400); RDW Coefficient of Variation 13.1 % (11.5-14.5); Red Blood Count 4.01 M/uL (4.20-5.40); White Blood Count 6.89 K/ul (4.8-10.8)
[2023-01-03 04:16] LABS: BUN Creatinine Ratio 13.6 (10-20); Calcium 9.2 mg/dl (8.6-10.3); Creatinine Clr Calc Pharmacy 90.9 ml/min; Est GFR (African American) 94.1 ml/min; Est GFR (Non-African American) 81.2 ml/min; Potassium 4.3 mmol/L (3.5-5.1)
[2023-01-03] MEDS: LEVOTHYROXINE SODIUM 112 MCG TABLET PO SCH (06:26)
[2023-01-03] MEDS: METOPROLOL TARTRATE 50 MG TAB PO SCH ×2 (08:23→22:34)
[2023-01-03] MEDS: VENLAFAXINE HCL XR 37.5 MG CAPXR PO SCH (08:23)
[2023-01-03] MEDS: FLUTICASONE FUROATE 100MCG 14 PUFFS/INHALER INH SCH (08:24)
[2023-01-03] MEDS: VENLAFAXINE HCL XR 75 MG CAPXR PO SCH (08:24)
[2023-01-03] MEDS: ENOXAPARIN INJ 40 MG/0.4 ML SYR SQ SCH ×2 (08:24→22:34)
[2023-01-03] MEDS ORDERED: LORATADINE 10 MG TAB PO SCH (09:00)
[2023-01-03] MEDS ORDERED: LINACLOTIDE 145 MCG CAPSULE PO SCH (09:00)
[2023-01-03] MEDS ORDERED: OXYBUTYNIN CHLORIDE XL 5 MG TABCR PO SCH (09:00)
[2023-01-03] MEDS ORDERED: VENLAFAXINE HCL 37.5 MG TAB PO SCH (09:00)
--- NOTE | 2023-01-03 09:03 | Hospitalist Progress Note ---
Date of Service January 03, 2023 Assessment & Plan (1) Shortness of breath: Plan: Exertional chest pain with shortness of breath, acute unclear if stable High-sensitivity troponin not elevated x 3 EKG NSR, nonspecific ST changes without territorial depression/elevation, QTc 483, Continue metoprolol tartrate 50 mg p.o. twice daily D-dimer 820, CTA venous Dopplers Negative Received full dose aspirin x1 on admit chronic stable, Hyperlipidemia, BMI 44 Continue rosuvastatin 20 mg p.o. 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, weight based SSI Home glargine dosing continued, SSI Glucose checks AC/at bedtime Goal BSG [id number] Asthma, chronic stable Well-controlled on Flovent, no wheezing DVT prophylaxis: Lovenox CODE STATUS: Full code (2) GERD (gastroesophageal reflux disease): (3) Long QT syndrome: (4) Diabetes mellitus with insulin therapy: (5) Hypothyroidism: (6) Hypertension: (7) Lumbar radiculopathy: Admission and Anticipated Discharge Date Admission Date: January 02, 2023 Results & Data Results & Data Vital Signs (Past 12 Hours) Vital Signs Temp Pulse Pulse Resp BP BP Pulse Ox 01/03/23 08:10 98.2 F 72 20 132/76 97 01/03/23 07:56 77 01/03/23 03:52 98.6 F 78 14 121/63 94 01/02/23 22:05 72 01/02/23 22:50 98.2 F 74 16 133/62 95 01/02/23 21:00 98.4 F 72 16 166/89 H 98 O2 Del Method 01/03/23 08:10 Room Air 01/03/23 07:56 01/03/23 03:52 Room Air 01/02/23 22:05 01/02/23 22:50 Room Air 01/02/23 21:00 Room Air PG Care Time/CCT Total # of Minutes Spent Total Time Spent with Patient: Total time spent is greater than 50% in coordination of care (as documented) at patient's floor/unit and/or counseling patient: Coding Diagnoses Shortness of breath R06.02 GERD (gastroesophageal reflux disease) K21.9 Long QT syndrome I45.81 Diabetes mellitus with insulin therapy E11.9; Z79.4 Hypothyroidism E03.8; E06.3 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
[2023-01-03] MEDS: LANTUS PER UNIT CHARGE SQ SCH (09:17)
[2023-01-03] MEDS: INSULIN ASPART PER UNIT CHARGE SC SCH ×4 (09:17→21:37)
--- NOTE | 2023-01-03 15:24 | XCELERA ---
[id number]
[2023-01-03] MEDS ORDERED: CHECK SCOPOLAMINE PATCH PLACEMENT SCH (16:00)
[2023-01-03] MEDS ORDERED: SCOPOLAMINE 1 MG TDSY TD ONE (16:20)
--- NOTE | 2023-01-03 16:45 | Discharge Summary ---
Date of Service January 03, 2023 Admission HPI Per Admitting Provider Vika is a 57-year-old female who presents with shortness of breath. She is past history of DM, hyperlipidemia, hypertension. Patient reports increasingly frequent exertional chest pain with associated shortness of breath which now occurs even walking short distances and which radiates to her neck and consistently resolves with rest. Mild right leg swelling in the last month. Had [facility] [place] Ultrasound for US of the stomach with gastroparesis. Is scheduled for gastric bipass and had a stomach ultrasound scheduled when she developed hest pain and shortness of breath and was recommended to be seen in the ER. She notes walking, bending over makes her heart race and she gets chest pain, and some shortness of breath. Previously woul dhave episodes rarely, and could use a treadmill without difficulty but in the last few months and especially the last week is very dyspneic with a racing heart just walking short distances. +R leg swelling x2 weeks. No pain. Denies hx of heart failure. Takes lasix for fluid overload after taking tylenol. STopped taking several weeks and has not had problems with swelling other than her R leg. Denies orthopnea. Takes flovent for asthma, no recent wheezing. Medical History: Reviewed Medications: Reviewed Surgical History: Reviewed Family history: Reviewed Allergies: Reviewed Social History: No recent medical marijuana use, used several months ago. No tobacco use. Rare social Etoh. Code Status: Full Code Principal Diagnosis Noncardiogenic symptoms negative stress echocardiogram - CTA Possible vertigo Discharge Exam Patient awake alert appropriate. Symptoms were not reproduced during my visit. Discharge Data Allergies Allergy/AdvReac Type Severity Reaction Status Date / Time gabapentin Allergy Severe Hallucinati Verified 01/02/23 18:19 ons homatropine Allergy Severe Anaphylactic Verified 01/02/23 18:19 Shock hydrocodone Allergy Severe Anaphylactic Verified 01/02/23 18:19 Shock erythromycin base Allergy Intermediate Rash Verified 01/02/23 18:19 hydromorphone Allergy Intermediate Confusion Verified 01/02/23 18:19 methylprednisolone Allergy Intermediate Rash Verified 01/02/23 18:19 ondansetron Allergy Intermediate "Cardiac Verified 01/02/23 18:19 symptoms" Sulfa (Sulfonamide Allergy Intermediate Rash Verified 01/02/23 18:19 Antibiotics) codeine Allergy Unknown listed in Verified 01/02/23 18:19 cardio records Consultations 04/13/23 18:40 ED Decision to Admit Stat Ordered Studies 01/02/23 17:01 US venous doppler LE RT Stat 01/02/23 18:26 CT angio chest PE protocol Stat Hospital Course (1) Shortness of breath: Exertional chest pain with shortness of breath, acute unclear if stable High-sensitivity troponin not elevated x 3 EKG NSR, nonspecific ST changes without territorial depression/elevation, QTc 483, Continue metoprolol tartrate 50 mg p.o. twice daily D-dimer 820, CTA venous Dopplers Negative Stress echocardiogram negative for suggestion of cardiac ischemia. Symptoms reproduced during testing not associated with arrhythmia Descriptions do sound perhaps consistent with some vertiginous etiology however patient has an allergy to homatroprine which is similar to scopolamine therefore will discharge on meclizine recommend ENT follow-up chronic stable, Hyperlipidemia, BMI 44 Continue rosuvastatin 20 mg p.o. 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, weight based SSI Continue home basal bolus insulin Asthma, chronic stable Well-controlled on Flovent, no wheezing CODE STATUS: Full code (2) GERD (gastroesophageal reflux disease): (3) Long QT syndrome: (4) Diabetes mellitus with insulin therapy: (5) Hypothyroidism: (6) Hypertension: (7) Lumbar radiculopathy: Total Time Total Time Spent Total Time Spent (In Minutes): It required greater than 30 minutes to prepare this patient for discharge including discussion with cardiology regarding her stress test Discharge Plan Discharge Items Patient Disposition: Home - Self-Care Reason For Visit: SOB, CHEST PAIN Discharge Diagnosis: non cardiac symptoms possible vertigo Activity: Resume your previous activity Non-emergency contact: Primary Care Provider Call non-emergency contact if: your symptoms worsen Follow-up/Referrals: Kassy Clark DO [Primary Care Provider] - Diet: Regular Addtl Attending Provider Instructions: Please follow-up with your family physician for further testing regarding your dizziness and instability. It is reassuring that all testing on your heart lungs and cardiovascular system has come out favorable for you Please try to change positions carefully prescribing you additional meclizine which you may take if your symptoms are severe Pending Studies at Discharge: No Stand-Alone Forms: [facility] [employer], Smoking Cessation Medications and DC Order Prescriptions: New meclizine 25 mg tablet 25 mg PO TID PRN (Reason: dizziness) Qty: 20 0RF Continued lisinopril 10 mg Tablet 10 mg PO HS Qty: 0 loratadine [Claritin] 10 mg Tablet 10 mg PO QAM Qty: 0 levothyroxine 112 mcg Tablet 112 mcg PO QAM Qty: 0 omeprazole 40 mg capsule,delayed release(DR/EC) 40 mg PO BID Qty: 60 3RF venlafaxine 75 mg capsule,extended release 24hr 75 mg PO QAM Rx Instructions: TOTAL DOSE 112.5 MG--TAKES WITH 37.5 MG TAB. Medical Marijuana 1 dose inhalation UD PRN (Reason: anxiety/pain) Patient Comments: none for last 2 1/2 months venlafaxine 37.5 mg Tablet 37.5 mg PO QAM Rx Instructions: TOTAL DOSE 112.5 MG--TAKES WITH 75 MG CAP. clonazepam 1 mg tablet 1 mg PO TID PRN (Reason: Anxiety) ibuprofen [Advil] 200 mg tablet 600 mg PO QID PRN (Reason: fever or pain) Qty: 30 0RF oxybutynin chloride 5 mg tablet extended release 24hr 5 mg PO QAM Flovent Diskus 100 mcg/actuation blister with device 1 inh INHALATION BID promethazine 12.5 mg tablet 12.5 mg PO Q6 PRN (Reason: Nausea And Vomiting) metoclopramide HCl 5 mg tablet 5 mg PO Q12 nystatin 100,000 unit/gram cream 1 applic TOPICAL UD Rx Instructions: apply a thin film beneath breasts and abdominal folds rosuvastatin 20 mg tablet 20 mg PO HS albuterol sulfate 90 mcg/actuation HFA aerosol inhaler 2 puff INHALATION QID PRN (Reason: Wheezing) insulin glargine [Lantus Solostar U-100 Insulin] 100 unit/mL (3 mL) insulin pen 20 unit SUBCUT DAILY Linzess 145 mcg capsule 145 mcg PO QAM metoprolol tartrate 50 mg tablet 50 mg PO BID ergocalciferol (vitamin D2) 1,250 mcg (50,000 unit) capsule 1,250 mcg PO WK furosemide 40 mg tablet 40 mg PO DAILY insulin aspart U-100 100 unit/mL (3 mL) insulin pen See Rx Instructions .ROUTE .COMPLEX Rx Instructions: inject 1 unit for every 5 carbs with meals subcutaneously. use 80 to 100 units daily ipratropium bromide 42 mcg (0.06 %) spray,non-aerosol 2 spray intranasal BID Rx Instructions: USE 2 SPRAYS INTO EACH NOSTRIL TWICE DAILY Discharge Orders: Discharge Order (Routine); Ordered 01/03/23 Ordered By: Catarino Ramirez Admission Data Admit Date/Time: 01/02/23 18:55 Attending Provider: Catarino Ramirez Admit Provider: Gume Eddy Primary Care Provider: Kassy Clark Other Providers: Gume Eddy Coding Level of Care Code 65151 INP/OBS DISCH >30 MIN Diagnoses Shortness of breath R06.02 GERD (gastroesophageal reflux disease) K21.9 Long QT syndrome I45.81 Diabetes mellitus with insulin therapy E11.9; Z79.4 Hypothyroidism E03.8; E06.3 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
[2023-01-03] MEDS ORDERED: LORazepam 0.5 MG TAB PO PRN (16:54)
--- NOTE | 2023-01-03 17:01 | Hospitalist Progress Note ---
Date of Service January 03, 2023 Assessment & Plan (1) Shortness of breath: Plan: Patient is acute shortness of breath is self-limited and seems to be associate with vertiginous-like symptoms. She had negative cardiopulmonary stress test and negative CT angiography. Subsequently's could be anxiety related or could be associate with vertiginous symptoms which she is explaining. Patient with as needed Ativan and meclizine for vertigo MRI of her brain will be undertaken. She previously has had an outpatient evaluation carotid Doppler and she is engaged with ENT Dr. Bazan (2) Diabetes mellitus with insulin therapy: Plan: Patient maintained on basal bolus insulin had not tolerated metformin in the past is morbidly obese with a BMI of 44 which likely provide some insulin resistance Lisinopril for prophylaxis for diabetic nephropathy (3) Hypertension: Plan: Chronic and stable although slightly unstable in the hospital reportedly sees [facility] cardiology for long QT syndrome hypertension continues on metoprolol lisinopril (4) PTSD (post-traumatic stress disorder): Plan: Patient has PTSD and also agoraphobia. She is continues on venlafaxine. Patient will have her clonazepam held in the hospital. She also uses medical marijuana for agoraphobia at this is also currently on hold Admission and Anticipated Discharge Date Admission Date: January 02, 2023 Subjective Patient was seen after her stress test which was negative for cardiac ischemia. This comes after having CT angiography also negative for pulmonary embolism or intrathoracic abnormalities. She then once again had reproduction of what seems to be more like vertiginous symptoms. She does have a history of PTSD and anxiety disorder. Difficult to parse which of these is actually happening. She has an allergy to homatroprine which prevents him from using transdermal scopolamine she refuses to use meclizine. I tried to reassure her that her medical problems have not found anything correlating that is serious and that the patient likely could go home with outpatient work-up with ENT however the patient refuses to go home subsequently we will pursue an MRI of her brain check additional serologies including Lyme and provide comfort with Ativan and meclizine. Physical Exam Physical Exam: Awake alert appropriate. Card exam is regular lungs are clear is no focal neurological deficits during my examination however symptoms were not present when I examined her Results & Data Results & Data Vital Signs (Past 12 Hours) Vital Signs Temp Pulse Pulse Resp BP Pulse Ox O2 Del Method 01/03/23 15:52 99.5 F 83 19 152/75 H 95 Room Air 01/03/23 15:02 74 01/03/23 11:51 98.4 F 83 20 146/94 H 96 Room Air 01/03/23 08:10 98.2 F 72 20 132/76 97 Room Air 01/03/23 07:56 77 Laboratory Results Reviewed CBC reviewed PRP discussed stress test with air hammer operator ordered additional testing of Lyme disease testing vitamin D and magnesium per patient's request PG Care Time/CCT Total # of Minutes Spent Total Time Spent with Patient: Total time spent is greater than 50% in coordination of care (as documented) at patient's floor/unit and/or counseling patient: Coding Level of Care Code 95694 SUB INP/OBS CARE 3/50MIN Diagnoses Shortness of breath R06.02 Diabetes mellitus with insulin therapy E11.9; Z79.4 Hypertension I10 Hypertension type: primary hypertension PTSD (post-traumatic stress disorder) F43.10 (3) Hypertension Hypertension type: primary hypertension Qualified Code(s): I10 - Essential (primary) hypertension
[2023-01-03] MEDS: CHOLECALCIFEROL 5,000 UNITS 125 MCG TAB PO SCH (18:05)
[2023-01-03] MEDS: MAGNESIUM SULFATE / D5W 1 GM/100 ML BAG IV SCH ×2 (18:05→21:36)
[2023-01-03] MEDS: MECLIZINE HCL 25 MG TAB PO PRN (18:06)
[2023-01-03] MEDS ORDERED: OPTIRAY 350 100ml IV ONE (19:38)
--- NOTE | 2023-01-03 20:37 | CT Scan Report ---
CT head/brain wo/w con CT DOSE: 1642.00 mGycm CLINICAL HISTORY: dizziness cannot do mri TECHNIQUE: Multiaxial CT images of the head were performed both before and after the intravenous admi nistration of 89 cc of Optiray 350. A dose lowering technique was utilized adhering to the principle s of ALARA. COMPARISON STUDY: Head CT 09/01/2020. FINDINGS: The paranasal sinuses and mastoid air cells are clear. The calvarium and skull base are int act. The orbits are unremarkable. The ventricles and sulci are within normal limits. There is no mass , hematoma, midline shift, acute infarct. Postcontrast sequences show no areas of abnormal enhancemen t. IMPRESSION: 1. No acute intracranial abnormality. 2. No abnormal enhancement. ACT 112: Negative or not required by law. Electronically signed by: Curry Monson M.D. 01/03/2023 8:34 PM
[2023-01-03] MEDS: ROSUVASTATIN CALCIUM 20 MG TAB PO SCH (22:34)
--- NOTE | 2023-01-04 05:14 | Electrocardiogram Report ---
Test Reason : Blood Pressure : / mmHG Vent. Rate : 086 BPM Atrial Rate : 086 BPM P-R Int : 126 ms QRS Dur : 096 ms QT Int : 404 ms P-R-T Axes : 057 080 074 degrees QTc Int : 483 ms Normal sinus rhythm Nonspecific ST abnormality Prolonged QT Abnormal ECG When compared with ECG of 03-SEP-2022 09:52, Vent. rate has increased BY 31 BPM Confirmed by Chris Bowles ([id number]) on 01/04/2023 5:14:21 AM Referred By: Confirmed By:Chris Bowles
[2023-01-04] MEDS: LEVOTHYROXINE SODIUM 112 MCG TABLET PO SCH (05:51)
[2023-01-04] MEDS ORDERED: PROMETHAZINE HCL 25 MG TAB PO ONE (05:59)
[2023-01-04 06:32] LABS: Hematocrit (blood only) 37.5 % (37.0-47.0); Hemoglobin 12.6 g/dl (12.0-16.0); Mean Corpuscular Hemoglobin 30.2 pg (25.0-34.0); Mean Corpuscular Hgb Conc 33.6 g/dL (32.0-36.0); Mean Corpuscular Volume 89.9 fL (80.0-100.0); Mean Platelet Volume 9.7 fL (9.4-12.4); Platelet Count 233 K/uL (130-400); RDW Coefficient of Variation 12.9 % (11.5-14.5); RDW Standard Deviation 42.6 fL (36.4-46.3); Red Blood Count 4.17 M/uL (4.20-5.40); White Blood Count 6.08 K/ul (4.8-10.8)
[2023-01-04 06:52] LABS: Albumin Globulin Ratio 1.4 (0.9-2); BUN Creatinine Ratio 12.8 (10-20); Bilirubin,Total 0.5 mg/dl (0.2-1.0); Calcium 9.2 mg/dl (8.6-10.3); Creatinine Clr Calc Pharmacy 85.5 ml/min; Est GFR (African American) 87.5 ml/min; Est GFR (Non-African American) 75.5 ml/min; Globulin 2.9 gm/dl (2.5-4.0); Potassium 4.2 mmol/L (3.5-5.1); Total Protein 6.9 gm/dl (6.0-8.3)
[2023-01-04 07:02] LABS: Lyme Ab IgG w/WB Rflx Negative (Negative); Lyme Ab IgM w/WB Rflx Negative (Negative)
[2023-01-04] MEDS: CHOLECALCIFEROL 5,000 UNITS 125 MCG TAB PO SCH (08:30)
[2023-01-04] MEDS: MECLIZINE HCL 25 MG TAB PO PRN (08:30)
[2023-01-04] MEDS: FLUTICASONE FUROATE 100MCG 14 PUFFS/INHALER INH SCH (08:30)
[2023-01-04] MEDS ORDERED: lisinopril 10 MG TAB PO SCH (09:00)
[2023-01-04] MEDS: VENLAFAXINE HCL XR 75 MG CAPXR PO SCH (09:04)
[2023-01-04] MEDS: METOPROLOL TARTRATE 50 MG TAB PO SCH (09:04)
[2023-01-04] MEDS: ENOXAPARIN INJ 40 MG/0.4 ML SYR SQ SCH (09:08)
[2023-01-04] MEDS: LANTUS PER UNIT CHARGE SQ SCH (09:12)
[2023-01-04] MEDS: VENLAFAXINE HCL XR 37.5 MG CAPXR PO SCH (09:31)
[2023-01-04] MEDS: INSULIN ASPART PER UNIT CHARGE SC SCH ×2 (10:10→12:11)
--- NOTE | 2023-01-04 15:49 | Discharge Summary ---
Date of Service January 04, 2023 Admission HPI Per Admitting Provider Vika is a 57-year-old female who presents with shortness of breath. She is past history of DM, hyperlipidemia, hypertension. Patient reports increasingly frequent exertional chest pain with associated shortness of breath which now occurs even walking short distances and which radiates to her neck and consistently resolves with rest. Mild right leg swelling in the last month. Had [facility] [place] Ultrasound for US of the stomach with gastroparesis. Is scheduled for gastric bipass and had a stomach ultrasound scheduled when she developed hest pain and shortness of breath and was recommended to be seen in the ER. She notes walking, bending over makes her heart race and she gets chest pain, and some shortness of breath. Previously woul dhave episodes rarely, and could use a treadmill without difficulty but in the last few months and especially the last week is very dyspneic with a racing heart just walking short distances. +R leg swelling x2 weeks. No pain. Denies hx of heart failure. Takes lasix for fluid overload after taking tylenol. STopped taking several weeks and has not had problems with swelling other than her R leg. Denies orthopnea. Takes flovent for asthma, no recent wheezing. Medical History: Reviewed Medications: Reviewed Surgical History: Reviewed Family history: Reviewed Allergies: Reviewed Social History: No recent medical marijuana use, used several months ago. No tobacco use. Rare social Etoh. Code Status: Full Code Principal Diagnosis non cardiac symptoms possible vertigo Discharge Exam Patient was seen before discharge her symptoms had abated he felt stable to go home Discharge Data Allergies Allergy/AdvReac Type Severity Reaction Status Date / Time gabapentin Allergy Severe Hallucinati Verified 01/02/23 18:19 ons homatropine Allergy Severe Anaphylactic Verified 01/02/23 18:19 Shock hydrocodone Allergy Severe Anaphylactic Verified 01/02/23 18:19 Shock erythromycin base Allergy Intermediate Rash Verified 01/02/23 18:19 hydromorphone Allergy Intermediate Confusion Verified 01/02/23 18:19 methylprednisolone Allergy Intermediate Rash Verified 01/02/23 18:19 ondansetron Allergy Intermediate "Cardiac Verified 01/02/23 18:19 symptoms" Sulfa (Sulfonamide Allergy Intermediate Rash Verified 01/02/23 18:19 Antibiotics) codeine Allergy Unknown listed in Verified 01/02/23 18:19 cardio records Consultations 01/02/23 18:40 ED Decision to Admit Stat Ordered Studies 01/02/23 17:01 US venous doppler LE RT Stat 01/02/23 18:26 CT angio chest PE protocol Stat 01/03/23 17:23 CT head/brain wo/w con Routine Hospital Course (1) Shortness of breath: Patient is acute shortness of breath is self-limited and seems to be associate with vertiginous-like symptoms. She had negative cardiopulmonary stress test and negative CT angiography. Subsequently's could be anxiety related or could be associate with vertiginous symptoms which she has a history of. There is some concern for polypharmacy Patient with as needed Ativan and meclizine for vertigo CT of the brain without contrast was unremarkable she previously has had an outpatient evaluation carotid Doppler and she is engaged with ENT Dr. Bazan (2) Diabetes mellitus with insulin therapy: Patient maintained on basal bolus insulin had not tolerated metformin in the past is morbidly obese with a BMI of 44 which likely provide some insulin resistance Lisinopril for prophylaxis for diabetic nephropathy (3) Hypertension: Chronic and stable although slightly unstable in the hospital reportedly sees [facility] cardiology for long QT syndrome hypertension continues on metoprolol lisinopril (4) PTSD (post-traumatic stress disorder): Patient has PTSD and also agoraphobia. She is continues on venlafaxine. Patient will have her clonazepam held in the hospital. She also uses medical marijuana for agoraphobia Total Time Total Time Spent Total Time Spent (In Minutes): It required greater than 30 minutes to prepare this patient for discharge Discharge Plan Discharge Items Patient Disposition: Home - Self-Care Reason For Visit: SOB, CHEST PAIN Discharge Diagnosis: non cardiac symptoms possible vertigo Activity: Resume your previous activity Non-emergency contact: Primary Care Provider Call non-emergency contact if: your symptoms worsen Follow-up/Referrals: Kassy Clark, [Primary Care Provider] - Diet: Regular Addtl Attending Provider Instructions: Please follow-up with your family physician for further testing regarding your dizziness and instability. It is reassuring that all testing on your heart lungs and cardiovascular system has come out favorable for you Please try to change positions carefully prescribing you additional meclizine which you may take if your symptoms are severe Pending Studies at Discharge: No Stand-Alone Forms: My Sendmybag, Smoking Cessation Medications and DC Order Prescriptions: New meclizine 25 mg tablet 25 mg PO TID PRN (Reason: dizziness) Qty: 20 0RF Continued lisinopril 10 mg Tablet 10 mg PO HS Qty: 0 loratadine [Claritin] 10 mg Tablet 10 mg PO QAM Qty: 0 levothyroxine 112 mcg Tablet 112 mcg PO QAM Qty: 0 omeprazole 40 mg capsule,delayed release(DR/EC) 40 mg PO BID Qty: 60 3RF venlafaxine 75 mg capsule,extended release 24hr 75 mg PO QAM Rx Instructions: TOTAL DOSE 112.5 MG--TAKES WITH 37.5 MG TAB. Medical Marijuana 1 dose inhalation UD PRN (Reason: anxiety/pain) Patient Comments: none for last 2 1/2 months venlafaxine 37.5 mg Tablet 37.5 mg PO QAM Rx Instructions: TOTAL DOSE 112.5 MG--TAKES WITH 75 MG CAP. clonazepam 1 mg tablet 1 mg PO TID PRN (Reason: Anxiety) ibuprofen [Advil] 200 mg tablet 600 mg PO QID PRN (Reason: fever or pain) Qty: 30 0RF oxybutynin chloride 5 mg tablet extended release 24hr 5 mg PO QAM Flovent Diskus 100 mcg/actuation blister with device 1 inh INHALATION BID metoclopramide HCl 5 mg tablet 5 mg PO Q12 nystatin 100,000 unit/gram cream 1 applic TOPICAL UD Rx Instructions: apply a thin film beneath breasts and abdominal folds rosuvastatin 20 mg tablet 20 mg PO HS albuterol sulfate 90 mcg/actuation HFA aerosol inhaler 2 puff INHALATION QID PRN (Reason: Wheezing) insulin glargine [Lantus Solostar U-100 Insulin] 100 unit/mL (3 mL) insulin pen 20 unit SUBCUT DAILY Linzess 145 mcg capsule 145 mcg PO QAM metoprolol tartrate 50 mg tablet 50 mg PO BID ergocalciferol (vitamin D2) 1,250 mcg (50,000 unit) capsule 1,250 mcg PO WK furosemide 40 mg tablet 40 mg PO DAILY insulin aspart U-100 100 unit/mL (3 mL) insulin pen See Rx Instructions .ROUTE .COMPLEX Rx Instructions: inject 1 unit for every 5 carbs with meals subcutaneously. use 80 to 100 units daily promethazine 12.5 mg tablet 12.5 mg PO Q6 PRN (Reason: Nausea And Vomiting) Qty: 20 0RF ipratropium bromide 42 mcg (0.06 %) spray,non-aerosol 2 spray intranasal BID Rx Instructions: USE 2 SPRAYS INTO EACH NOSTRIL TWICE DAILY Discharge Orders: Discharge Order (Routine); Ordered 01/04/23 Ordered By: Catarino Singleton/Other Patient Handouts: Meclizine Oral Tablet Admission Data Admit Date/Time: 01/02/23 18:55 Attending Provider: Catarino Ramirez Admit Provider: uGme Eddy Primary Care Provider: Kassy Clark Other Providers: Gume Eddy Other Interventions: Discharge Summary Assessment (RN) Last Done: 01/04/23 12:30 Coding Level of Care Code 26502 INP/OBS DISCH >30 MIN Diagnoses Shortness of breath R06.02 Diabetes mellitus with insulin therapy E11.9; Z79.4 Hypertension I10 Hypertension type: primary hypertension PTSD (post-traumatic stress disorder) F43.10
[2023-01-05] MEDS ORDERED: ERGOCALCIFEROL 50,000 UNITS 1250 MCG CAP PO SCH (09:00)
== END 2023-01-04 15:30 | disposition home or self-care (01) ==
LOC: ED 15:36 → 2W 18:55 → SUATTDRO 18:55 → INTOOBSV 18:55 → 2W 19:42

== ENCOUNTER 2024-06-09 16:32 | Observation (INO) ==
--- NOTE | 2024-06-09 17:00 | ED Triage Note ---
Date of Service June 09, 2024 Provider in Triage Author: Atif Mcpherson History of Present Illness This patient was briefly evaluated while in triage. An abbreviated physical exam was performed. This patient is a 59-year-old Female who presents to the ED for evaluation of a numb sensation through her rectum and vaginal region. The patient reports that she was sitting down on a rotating chair this morning when the symptoms started. She denies any other recent falls. Patient reports that the pain is better when she lays down. Patient reports that her legs are numb as well, describing them as "heavy, and will not work". The patient rates her discomfort a 10 out of 10. Patient is also wondering if she has a UTI, as she has had these in the past. The patient reports that she is menopausal. Physical Exam CONSTITUTIONAL: Healthy and well nourished. Patient appears in mild discomfort. HEENT: No scleral icterus or conjunctival injection. RESPIRATORY: Clear to auscultation bilaterally with no wheezing, crackles, rhonchi or stridor. CARDIOVASCULAR: Regular rate and rhythm with no murmurs, rubs or gallops. GASTROINTESTINAL: Bowel sounds present in all quadrants. MUSCULOSKELETAL: Patient is tender through the posterior central pelvic region. No tenderness to palpation over the SI joints. INTEGUMENTARY: No rash or other significant dermatologic conditions noted. HEMATOLOGIC: No ecchymosis or petechiae. PSYCHIATRIC: Positive affect. NEUROLOGIC: Lower extremities are sensory intact. Initial orders for labs and / or imaging were placed and patient was placed in the waiting area until a bed is available. Please see further documentation for the full ED course.
[2024-06-09 18:23] LABS: Basophils # (auto) 0.01 K/uL (0.00-0.20); Basophils % (auto) 0.1 %; Eosinophils # (auto) 0.05 K/uL (0.00-0.50); Eosinophils % (auto) 0.5 %; Hematocrit (blood only) 40.2 % (37.0-47.0); Hemoglobin 13.3 g/dl (12.0-16.0); Immature Granulocytes # (auto) 0.03 K/uL (0.01-0.20); Immature Granulocytes % (auto) 0.3 %; Lymphocytes # (auto) 1.38 K/uL (1.20-3.40); Lymphocytes % (auto) 14.5 %; Mean Corpuscular Hemoglobin 27.9 pg (25.0-34.0); Mean Corpuscular Hgb Conc 33.1 g/dL (32.0-36.0); Mean Corpuscular Volume 84.5 fL (80.0-100.0); Mean Platelet Volume 10.6 fL (9.4-12.4); Monocytes # (auto) 0.32 K/uL (0.11-0.59); Monocytes % (auto) 3.4 %; Neutrophils % (auto) 81.2 %; Platelet Count 275 K/uL (130-400); RDW Coefficient of Variation 13.5 % (11.5-14.5); Red Blood Count 4.76 M/uL (4.20-5.40); White Blood Count 9.49 K/ul (4.8-10.8)
[2024-06-09 18:32] LABS: Albumin Globulin Ratio 1.6 (0.9-2); Albumin Level 4.9 gm/dl (3.4-5.0); Bilirubin,Total 0.5 mg/dl (0.2-1.0); Calcium 10.3 mg/dl (8.6-10.3); Creatinine Clr Calc Pharmacy 80.2 ml/min; Est GFR (African American) 71.9 ml/min; Est GFR (Non-African American) 62.1 ml/min; Globulin 3.1 gm/dl (2.5-4.0); Potassium 4.6 mmol/L (3.5-5.1)
[2024-06-09 19:37] LABS: Amorphous Sediment Urine Present (None Prsent); Appearance Urine Cloudy (Clear); Bacteria Urine Automated 4+ (None Seen); Bilirubin Urine Negative (Negative); Blood Urine Negative (Negative); Color Urine Dark Yellow; Epithelial Cell Urine Auto 0-2 /hpf (0-2); Glucose Urine UA Trace (Negative); Ketones Urine Negative (Negative); Leukocyte Esterase Urine 3+ (Negative); Nitrite Urine Positive (Negative); Protein Urine Negative (Negative); RBC Urine Automated 0-2 /hpf (0-2); Specific Gravity Urine 1.012 (1.000-1.030); Urobilinogen Urine Negative (Negative); WBC Urine Automated >50 /hpf (0-5); pH Urine 5.5 (4.5-7.5)
--- NOTE | 2024-06-09 19:56 | Emergency Department Note ---
History of Present Illness General Chief complaint: Urinary Symptoms Stated complaint: BLADDER CONTROL ISSUES, LEG NUMBNESS, UTI/BURNING Time Seen by Provider: 06/09/24 19:39 Source: patient, RN notes reviewed and old records reviewed Mode of arrival: ambulatory Limitations: no limitations History of Present Illness Maximum Pain Intensity: 10 This patient a 59-year-old female who comes in after having pain in her right buttocks. She said she stepped funny yesterday and has a constant pain since and when I walk in the room she is hunched on all fours complaining of pain. She says it is constant she has had some dysuria she also feels like she says it is hard to know when she has to have a bowel movement or urinate. She is numbness in the right side of the buttocks and leg. She does have a history of lumbar disc disease and had Dr. Angeles do a injection/nerve surgery on . No fever or chills. No trauma or injury. She has had no other back surgeries but has a history of back issues. Home Medications Medication Instructions Recorded Confirmed Type levothyroxine 112 mcg tablet 112 mcg PO QAM ##0 09/01/17 03/12/24 History venlafaxine 75 mg capsule,extended 75 mg PO QAM 02/16/20 03/12/24 History release 24 hr venlafaxine 37.5 mg tablet 37.5 mg PO QAM 08/24/21 03/12/24 History ibuprofen 200 mg tablet (Advil) 600 mg (3 x 200 mg) PO QID PRN 09/03/22 03/11/24 Rx fever or pain #30 tabs albuterol sulfate 90 mcg/actuation 2 puff inhalation QID PRN Wheezing 01/02/23 03/11/24 History aerosol inhaler fluticasone propionate 100 1 inh inhalation BID 01/02/23 03/12/24 History mcg/actuation blister powder for inhalation (Flovent Diskus) insulin aspart U-100 100 unit/mL See Rx Instructions .Route .COMPLEX 01/02/23 03/12/24 History (3 mL) subcutaneous pen linaclotide 145 mcg capsule 145 mcg PO QAM 01/02/23 03/12/24 History (Linzess) metoprolol tartrate 50 mg tablet 25 mg PO BID 01/02/23 03/12/24 History nystatin 100,000 unit/gram topical 1 applic topical UD PRN yeast 01/02/23 03/11/24 History cream infection rosuvastatin 20 mg tablet 20 mg PO HS 01/02/23 03/12/24 History meclizine 25 mg tablet 25 mg PO TID PRN dizziness #20 tabs 01/03/23 03/11/24 Rx promethazine 12.5 mg tablet 12.5 mg PO Q6 PRN Nausea And 01/04/23 03/11/24 Rx Vomiting #20 tabs blood sugar diagnostic (OneTouch #300 ea 01/27/23 03/20/23 Rx Ultra Test strips) clonazepam 1 mg tablet 1 mg PO TID Anxiety 01/27/23 03/12/24 History furosemide 40 mg tablet 40 mg PO QAM 01/27/23 03/12/24 History lisinopril 10 mg tablet 10 mg PO HS #0 tabs 01/27/23 03/11/24 History metoclopramide HCl 5 mg tablet 5 mg PO Q12H PRN Nausea 06/01/23 03/11/24 History omega-3s 300 cs-mob-pfm-other 1 cap PO BID 06/01/23 03/12/24 History [id number] oil 1,000 mg capsule ([place]-3 Fish Oil) ipratropium bromide 42 mcg (0.06 2 spray intranasal BID #45 mL 08/04/23 03/12/24 Rx %) nasal spray omeprazole 40 mg capsule,delayed 40 mg PO BID #60 caps 11/24/23 03/12/24 Rx release cholecalciferol (vitamin D3) 125 250 mcg PO QAM 03/11/24 03/12/24 History mcg (5,000 unit) tablet (Vitamin D3) insulin glargine 100 unit/mL (3 60 unit subcut HS 03/11/24 03/12/24 History mL) subcutaneous pen (Lantus Solostar U-100 Insulin) levocetirizine 5 mg tablet (Xyzal) 5 mg PO HS 03/11/24 03/11/24 History pen needle, diabetic 32 gauge x #500 ea 04/27/24 Rx 532" (Easy Comfort Pen Curtice) Allergies Allergy/AdvReac Type Severity Reaction Status Date / Time gabapentin Allergy Severe Hallucinati Verified 03/12/24 13:05 ons homatropine Allergy Severe Anaphylactic Verified 03/12/24 13:05 Shock hydrocodone Allergy Severe Anaphylactic Verified 03/12/24 13:05 Shock erythromycin base Allergy Intermediate Rash Verified 03/12/24 13:05 hydromorphone Allergy Intermediate Confusion Verified 03/12/24 13:05 methylprednisolone Allergy Intermediate Rash Verified 03/12/24 13:05 ondansetron Allergy Intermediate "Cardiac Verified 03/12/24 13:05 symptoms" Sulfa (Sulfonamide Allergy Intermediate Rash Verified 03/12/24 13:05 Antibiotics) codeine Allergy Unknown listed in Verified 03/12/24 13:05 cardio records Past Med/Surg History Problem List (Updated 06/10/24 @ 00:38 by Dimitry Hahn MD) Sacral back pain (Acute) Lumbar disc disease (Acute) UTI (urinary tract infection) (Acute) Intractable back pain (Acute) BMI 40.0-44.9, adult Macromastia Shortness of breath (Acute) Chest pain (Acute) Diabetes mellitus with insulin therapy Incontinence Dysuria Right carotid bruit Headache Shortness of breath Hypoxia Bilateral tinnitus Dizziness Sensorineural hearing loss (SNHL) of both ears Lesion of bladder Mixed incontinence Lumbar facet arthropathy Post-nasal drip TMJ tenderness, left (Acute) TMJ arthralgia Acquired deviated nasal septum Fecal occult blood test positive Fecal occult blood test positive Abdominal pannus Abdominal pain, left upper quadrant (Acute) Diabetes type 1, controlled IDDM Hiatal hernia Laryngopharyngeal reflux (LPR) Chronic laryngitis Allergic rhinitis Allergic fungal sinusitis (AFS) GERD (gastroesophageal reflux disease) Well controlled and stable Anemia (Acute) Anxiety (Acute) Daytime somnolence (Acute) Liver lesion (Acute) Long QT syndrome (Acute) 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 Hypothyroidism PTSD (post-traumatic stress disorder) Anxiety and depression Hx of temporomandibular joint disorder Hypertension Hyperlipidemia Exercise-induced asthma Morbid obesity Hiatal hernia Claustrophobia Significant - does have issues with oxygen mask at times Fatty liver Intermittent palpitations Follows with Dr. Stout- "consistent with PVCs per cardio records"- on beta perico Acquired deviated nasal septum No significant symptoms per patient Surgical History H/O shoulder surgery right x 2 History of tooth extraction Hx of carpal tunnel repair left w/ulnar nerve transpostion History of arthroscopy of left shoulder LMA# + PNB. S/P epidural steroid injection S/P trigger finger release History of colonoscopy History of esophagogastroduodenoscopy (EGD) History of cryosurgery cervix History of ankle surgery right S/P appendectomy History of delivery x4 Family History Sister Breast cancer Renal failure Brother Diabetes Trisomy 21 Son Diabetes Grandfather (Maternal) Heart disease Father Pernicious anemia Other Hypertension No family history of adverse response to anesthesia Social History Smoking Status: Never smoker Tobacco Type: E-cigarettes / Vaping Second Hand Exposure: No; Do You Dip or Chew Tobacco: No; Hx Alcohol Use: Yes Alcohol type: wine Hx Substance Use: No Preferred Language: [place]an Communication Ability: Effective Visual Impairment: No Limitations Hearing Ability: Normal State Pilot Required: No Beliefs That Will Affect Care: None Current Living Situation: Family Feels Safe at Home: Yes Assistive Devices: CPAP and Glasses Review of Systems A total of 10 systems reviewed and were otherwise negative Physical Exam Vital Signs Vital Signs - 24 hr 06/09/24 16:56 06/09/24 19:04 06/09/24 19:21 Temperature 36.6 C Temperature Source Temporal Artery Scan Pulse Rate 111 H 83 Pulse Rate [Apical] 93 H Pulse Rate from SpO2 Sensor Pulse Rhythm [Apical] Regular Pulse Strength [Apical] Normal Respiratory Rate 20 18 22 Respiratory Effort / Characteristics Non-Labored Non-Labored Spontaneous Respiratory Depth Normal Normal Respiratory Pattern Regular Blood Pressure 167/86 H Blood Pressure [Right Arm] 173/96 H Blood Pressure Mean 113 Blood Pressure Mean [Right Arm] 121 Blood Pressure Position [Right Arm] Sitting Pulse Oximetry 96 97 Oxygen Delivery Method Room Air Room Air Sepsis Recent Fever Within 48 Hours No Sepsis New/Unexplained Change in Mental Status No Sepsis Action Taken by Nursing No Action Required 06/09/24 19:33 06/09/24 19:42 06/09/24 20:12 Temperature Temperature Source Pulse Rate 84 94 H Pulse Rate [Apical] Pulse Rate from SpO2 Sensor Pulse Rhythm [Apical] Pulse Strength [Apical] Respiratory Rate 17 16 Respiratory Effort / Characteristics Respiratory Depth Respiratory Pattern Blood Pressure Blood Pressure [Right Arm] Blood Pressure Mean Blood Pressure Mean [Right Arm] Blood Pressure Position [Right Arm] Pulse Oximetry Oxygen Delivery Method Sepsis Recent Fever Within 48 Hours Sepsis New/Unexplained Change in Mental Status Sepsis Action Taken by Nursing 06/09/24 20:33 06/09/24 20:54 06/09/24 21:01 Temperature Temperature Source Pulse Rate 96 H 104 H Pulse Rate [Apical] Pulse Rate from SpO2 Sensor Pulse Rhythm [Apical] Pulse Strength [Apical] Respiratory Rate 17 21 Respiratory Effort / Characteristics Respiratory Depth Respiratory Pattern Blood Pressure 144/92 H Blood Pressure [Right Arm] Blood Pressure Mean 100 Blood Pressure Mean [Right Arm] Blood Pressure Position [Right Arm] Pulse Oximetry Oxygen Delivery Method Sepsis Recent Fever Within 48 Hours Sepsis New/Unexplained Change in Mental Status Sepsis Action Taken by Nursing 06/09/24 21:01 06/09/24 21:03 06/09/24 22:15 Temperature Temperature Source Pulse Rate 100 H Pulse Rate [Apical] Pulse Rate from SpO2 Sensor 100 H Pulse Rhythm [Apical] Pulse Strength [Apical] Respiratory Rate 22 Respiratory Effort / Characteristics Respiratory Depth Respiratory Pattern Blood Pressure 144/92 H 151/85 H Blood Pressure [Right Arm] Blood Pressure Mean 100 111 Blood Pressure Mean [Right Arm] Blood Pressure Position [Right Arm] Pulse Oximetry 97 Oxygen Delivery Method Sepsis Recent Fever Within 48 Hours Sepsis New/Unexplained Change in Mental Status Sepsis Action Taken by Nursing 06/09/24 22:20 06/09/24 22:42 06/09/24 23:09 Temperature Temperature Source Pulse Rate Pulse Rate [Apical] 94 H Pulse Rate from SpO2 Sensor 92 H 87 Pulse Rhythm [Apical] Regular Pulse Strength [Apical] Normal Respiratory Rate 22 Respiratory Effort / Characteristics Non-Labored Respiratory Depth Normal Respiratory Pattern Regular Blood Pressure Blood Pressure [Right Arm] 151/85 H Blood Pressure Mean Blood Pressure Mean [Right Arm] 107 Blood Pressure Position [Right Arm] Pulse Oximetry 95 92 94 Oxygen Delivery Method Room Air Sepsis Recent Fever Within 48 Hours Sepsis New/Unexplained Change in Mental Status Sepsis Action Taken by Nursing 06/09/24 23:57 06/09/24 23:57 Temperature Temperature Source Pulse Rate Pulse Rate [Apical] Pulse Rate from SpO2 Sensor 79 Pulse Rhythm [Apical] Pulse Strength [Apical] Respiratory Rate Respiratory Effort / Characteristics Respiratory Depth Respiratory Pattern Blood Pressure 118/68 Blood Pressure [Right Arm] Blood Pressure Mean 81 Blood Pressure Mean [Right Arm] Blood Pressure Position [Right Arm] Pulse Oximetry 93 Oxygen Delivery Method Sepsis Recent Fever Within 48 Hours Sepsis New/Unexplained Change in Mental Status Sepsis Action Taken by Nursing General: Well developed well nourished middle-age female who appears in no acute distress, breathing comfortably on room air. Normal speech HEENT: Normal cephalic atraumatic. Pupils are equal round and reactive to light. Sclera are anicteric. Extraocular movements are intact. Oropharynx is pink with moist mucous membranes. No swelling of the mouth lips or tongue. Neck: Supple with a midline trachea. No meningeal signs or stiffness, no JVD or bruits. No Stridor. Chest: Clear to auscultation bilaterally. No wheezes or rhonchi. No increased work of breathing. Heart: Regular rate and rhythm without murmurs or gallops. Abdomen: Soft nontender, nondistended without rebound guarding or rigidity. Rectal/buttocks (done in the presence of female nurse envelope machine operator) she does say she has intact sensation to light touch in the buttocks. Extremities: No cyanosis clubbing or edema. No calf tenderness or assymetry Spine/Back. Non tender to palpation. No CVA tenderness Skin: Good turgor without rashes. Neurologic exam: Cranial nerves two through 12 are intact. Motor and sensation are intact and symmetrical throughout. Course Administered Medications Lorazepam (Lorazepam 1 Mg/1 Ml Syr Ed Inj Use) 2 mg IV ONE PRN PRN Reason: Sedation Stop: 07/09/24 19:58 Last Admin: 06/09/24 21:03 Dose: 2 mg Documented By: AAW Discontinued Medications Promethazine HCl (Phenergan) 25 mg in 51 mls @ 204 mls/hr IV NOW STA Stop: 09/18/24 21:30 Last Infusion: 06/09/24 22:31 Dose: Infused Documented By: Admin: 06/09/24 22:15 Dose: 204 mls/hr Documented By: STEPHEN Ceftriaxone Sodium (Rocephin) 2,000 mg in 50 mls @ 100 mls/hr IV NOW STA Stop: 06/09/24 22:49 Last Infusion: 06/09/24 23:08 Dose: Infused Documented By: Admin: 06/09/24 22:31 Dose: 100 mls/hr Documented By: STEPHEN Morphine Sulfate (Morphine Sulfate 4 Mg/Ml 1 Ml Carp\\Vial) 4 mg IV NOW STA Stop: 06/09/24 19:52 Last Admin: 06/09/24 20:54 Dose: 4 mg Documented By: STEPHEN Medical Decision Making Differential Diagnosis Lumbar disc disease, UTI, cauda equina syndrome, back pain, electrolyte or metabolic abnormalities. Medical Records Attestation: I reviewed the patient's medical records. Home Medications Current Medication List: was personally reviewed by me Laboratory Data Attestation: I reviewed the patient's lab results. 06/09/24 17:25 06/09/24 17:25 Lab Results 06/09/24 06/09/24 Range/Units 17:25 19:07 WBC 9.49 (4.8-10.8) K/ul RBC 4.76 (4.20-5.40) M/uL Hgb 13.3 (12.0-16.0) g/dl Hct 40.2 (37.0-47.0) % MCV 84.5 (80.0-100.0) fL MCH 27.9 (25.0-34.0) pg MCHC 33.1 (32.0-36.0) g/dL RDW Std Deviation 42.0 (36.4-46.3) fL RDW Coeff of [place] 13.5 (11.5-14.5) % Plt Count 275 (130-400) K/uL MPV 10.6 (9.4-12.4) fL Immature Gran % (Auto) 0.3 % Neut % (Auto) 81.2 % Lymph % (Auto) 14.5 % Harrison % (Auto) 3.4 % Eos % (Auto) 0.5 % Baso % (Auto) 0.1 % Neut # (Auto) 7.70 H (1.40-6.50) K/uL Lymph # (Auto) 1.38 (1.20-3.40) K/uL Harrison # (Auto) 0.32 (0.11-0.59) K/uL Eos # (Auto) 0.05 (0.00-0.50) K/uL Baso # (Auto) 0.01 (0.00-0.20) K/uL Immature Gran # (Auto) 0.03 (0.01-0.20) K/uL Sodium 137 (136-145) mmol/L Potassium 4.6 (3.5-5.1) mmol/L Chloride 104 (98-107) mmol/L Carbon Dioxide 21 (21-32) mmol/L Anion Gap 12 H (3-11) BUN 13 (6-23) mg/dl Creatinine 1.00 (0.6-1.2) mg/dl Est Cr Clr Drug Dosing 80.2 ml/min Est GFR ( Amer) 71.9 ml/min Est GFR (Non-Af Amer) 62.1 ml/min BUN/Creatinine Ratio 13.0 (10-20) Glucose 272 H (70-99(Fasting)) mg/dl Calcium 10.3 (8.6-10.3) mg/dl Total Bilirubin 0.5 (0.2-1.0) mg/dl AST 25 (13-39) U/L ALT 30 (7-52) U/L Alkaline Phosphatase 85 (34-104) U/L Total Protein 8.0 (6.0-8.3) gm/dl Albumin 4.9 (3.4-5.0) gm/dl Globulin 3.1 (2.5-4.0) gm/dl Albumin/Globulin Ratio 1.6 (0.9-2) Lipase 17 (11-82) U/L Urine Color Dark Yellow Urine Appearance Cloudy A (Clear) Urine pH 5.5 (4.5-7.5) Ur Specific [place] 1.012 (1.000-1.030) Urine Protein Negative (Negative) Urine Glucose (UA) Trace H (Negative) Urine Ketones Negative (Negative) Urine Blood Negative (Negative) Urine Nitrite Positive A (Negative) Urine Bilirubin Negative (Negative) Urine Urobilinogen Negative (Negative) Ur Leukocyte Esterase 3+ H (Negative) Urine WBC (Auto) >50 H (0-5) /hpf Urine RBC (Auto) 0-2 (0-2) /hpf U Hyaline Cast (Auto) 3-5 H (0-2) /lpf U Epithel Cells (Auto) 0-2 (0-2) /hpf Urine Bacteria (Auto) 4+ H (None Seen) Amorphous Sediment Present A (None Prsent) Imaging Data Radiologist's Impression: Lumbar Spine MRI 06/09/24 19:51 Exam(s): MRI L SPINE Without Contrast EXAM: MR Lumbar Spine Without Intravenous Contrast CLINICAL HISTORY: Reason for exam: eval for cauda equina/disc disease. numbness in rt. TECHNIQUE: Magnetic resonance images of the lumbar spine without intravenous contrast in multiple planes. COMPARISON: Prior CT scan of the abdomen pelvis from January 13, 2024.. FINDINGS: Vertebrae: There are 5 lumbar type vertebral bodies with a mild generalized curve to the left and a shallow lumbar lordosis. There is normal vertebral body height and alignment. The bone marrow signal is normal. No acute fracture. There is narrowing of the entire lumbar spinal canal secondary to congenitally short pedicles. Spinal cord: The conus is normal size, shape and signal characteristics, terminating at L1-L2. Soft tissues: Mild atrophy of the iliopsoas, paraspinous intraspinous musculature. The aorta and IVC flow voids are intact. The visualized kidneys are unremarkable. There is increased fluid signal within the interspinous space at L2-3, L3-4 and L4-5. There is mild edema in the subcutaneous fat. There is mild edema within the left paraspinous muscles at S1, S2, S3 and S4, which can be seen with muscle strain. DISCS/SPINAL CANAL/NEURAL FORAMINA: L1-L2: The intervertebral disc is normal. There is mild facet arthropathy with mild synovitis. L2-L3: There is mild disc degeneration with annular disc bulge asymmetric to the right flattening the ventral thecal sac with disc extending to the neural foramina without evidence of impingement or significant stenosis. There is mild facet arthropathy with mild synovitis. L3-L4: There is mild disc degeneration with annular disc bulge asymmetric to the right flattening the ventral thecal sac with disc extending to the neural foramina causing mild bilateral stenosis without evidence of neural impingement. There is mild facet arthropathy with mild synovitis. L4-L5: There is mild disc degeneration with annular disc bulge flattening the ventral thecal sac with disc extending to the neural foramina causing mild bilateral stenosis without evidence of neural impingement. There is mild facet joint arthropathy with moderate sized joint effusions are normal in morphology concerning for instability with moderate synovitis. L5-S1: There is mild disc degeneration with annular disc bulge flattening the ventral thecal sac with disc and osteophyte extending to the neural foramina causing a mild right and moderate left stenosis with mild impingement of the left L5 nerve or ganglia. There is minimal facet joint arthropathy with mild synovitis. IMPRESSION: 1. Mild disc degeneration at L2-3 through L5-S1 with annular disc bulging find a ventral thecal sac. 2. There is no degenerative spinal canal stenosis with a congenitally narrow spinal canal. 3. There is mild bilateral L3-4, mild bilateral L4-5 and mild right and moderate left L5-S1 neural foraminal stenosis with impingement of the left L5 nerve or ganglia. 4. There is mild facet arthropathy with mild to moderate synovitis with moderate joint effusions at L4-5 with moderate synovitis. 5. No evidence of fracture, infection, tumor or arachnoiditis. Electronically signed by: Sun Casanova MD 06/09/24 23:37 PM MDM Narrative This patient comes in described above. She appears uncomfortable. She drove but tells me she can get a ride home. IV access had been established blood work about none prior to me evaluating her blood work looks reassuring. Her urinalysis does suggest a UTI. I am concerned with her history of back issues and the complaints of possible bowel or bladder problems with some numbness that she needs an MRI. I gave her morphine 4 mg IV and she has had this before. I also ordered an MRI. She says she is severely claustrophobic but is willing to try I will give her some Ativan prior to the MRI. She was able to tolerate the MRI of and we got the MRI. She did receive Ativan 2 mg IV prior and also afterwards received Phenergan 25 mg IV she says she was nauseated. She has multiple degenerative changes but nothing that requires emergent surgery tonight. Her urine does appear to be infected she was given Rocephin 2 g IV she tolerated this well. She appears more comfortable with this but still very uncomfortable. I do think she needs to be admitted/observed for further treatment and evaluation and pain management. I have discussed the case at length with Dr. Villalba and the [facility] hospitalist he will see her in the ER Impression & Plan Intractable back pain, UTI (urinary tract infection), Lumbar disc disease, Sacral back pain Discharge Plan Visit Data Chief Complaint: Urinary Symptoms Stated Complaint: BLADDER CONTROL ISSUES, LEG NUMBNESS, UTI/BURNING ED Provider: Dimitry Hahn Discharge Problem: Intractable back pain, UTI (urinary tract infection), Lumbar disc disease, Sacral back pain Forms Stand Alone Forms: My [facility] Prescriptions Prescriptions: No Action levothyroxine 112 mcg Tablet 112 mcg PO QAM Qty: 0 lisinopril 10 mg tablet 10 mg PO HS Qty: 0 ipratropium bromide 42 mcg (0.06 %) spray,non-aerosol 2 spray intranasal BID Qty: 45 3RF Rx Instructions: USE 2 SPRAYS INTO EACH NOSTRIL TWICE DAILY omeprazole 40 mg capsule,delayed release(DR/EC) 40 mg PO BID Qty: 60 4RF (DME) pen needle, diabetic [Easy Comfort Pen Curtice] 32 gauge x 5/32" needle See Rx Instructions .Route Qty: 500 3RF Rx Instructions: use with insulin injections, 5 times daily (DME) OneTouch Ultra Test Strip See Rx Instructions .ROUTE Qty: 300 0RF Rx Instructions: test blood sugar 3 x daily venlafaxine 75 mg capsule,extended release 24hr 75 mg PO QAM Rx Instructions: TOTAL DOSE 112.5 MG--TAKES WITH 37.5 MG TAB. venlafaxine 37.5 mg Tablet 37.5 mg PO QAM Rx Instructions: TOTAL DOSE 112.5 MG--TAKES WITH 75 MG CAP. clonazepam 1 mg tablet 1 mg PO TID ibuprofen [Advil] 200 mg tablet 600 mg PO QID PRN (Reason: fever or pain) Qty: 30 0RF fluticasone propionate [Flovent Diskus] 100 mcg/actuation blister with device 1 inh INHALATION BID nystatin 100,000 unit/gram cream 1 applic TOPICAL UD PRN (Reason: yeast infection) Rx Instructions: apply a thin film beneath breasts and abdominal folds rosuvastatin 20 mg tablet 20 mg PO HS albuterol sulfate 90 mcg/actuation HFA aerosol inhaler 2 puff INHALATION QID PRN (Reason: Wheezing) Linzess 145 mcg capsule 145 mcg PO QAM metoprolol tartrate 50 mg tablet 25 mg PO BID insulin aspart U-100 100 unit/mL (3 mL) insulin pen See Rx Instructions .ROUTE .COMPLEX Rx Instructions: inject 1 unit for every 5 carbs with meals subcutaneously. use 80 to 100 units daily meclizine 25 mg tablet 25 mg PO TID PRN (Reason: dizziness) Qty: 20 0RF promethazine 12.5 mg tablet 12.5 mg PO Q6 PRN (Reason: Nausea And Vomiting) Qty: 20 0RF furosemide 40 mg tablet 40 mg PO QAM metoclopramide HCl 5 mg tablet 5 mg PO Q12H PRN (Reason: Nausea) [place]-3 Fish Oil 300-1,000 mg Capsule 1 cap PO BID levocetirizine [Xyzal] 5 mg Tablet 5 mg PO HS cholecalciferol (vitamin D3) [Vitamin D3] 125 mcg (5,000 unit) Tablet 250 mcg PO QAM insulin glargine [Lantus Solostar U-100 Insulin] 100 unit/mL (3 mL) insulin pen 60 unit SUBCUT HS Referrals Referrals: Kassy Clark DO [Primary Care Provider] - Discharge Problem: UTI (urinary tract infection) Qualifiers: Urinary tract infection type: site unspecified Hematuria presence: without hematuria Qualified Code(s): N39.0 - Urinary tract infection, site not specified
[2024-06-09] MEDS: MoRPHine SULFATE 4 MG/ML 1 ML CARP\\VIAL IV STA (20:54)
[2024-06-09] MEDS: LORazepam 1 MG/1 ML SYR ED Inj Use IV PRN (21:03)
[2024-06-09] MEDS: PROMETHAZINE 25 MG/51 ML BAG IV STA (22:15)
[2024-06-09] MEDS: cefTRIAXone SODIUM 2,000 MG/50 ML BAG IV STA (22:31)
--- NOTE | 2024-06-09 23:38 | Magnetic Resonance Report ---
Exam(s): MRI L SPINE Without Contrast EXAM: MR Lumbar Spine Without Intravenous Contrast CLINICAL HISTORY: Reason for exam: eval for cauda equina/disc disease. numbness in rt. TECHNIQUE: Magnetic resonance images of the lumbar spine without intravenous contrast in multiple planes. COMPARISON: Prior CT scan of the abdomen pelvis from January 13, 2024.. FINDINGS: Vertebrae: There are 5 lumbar type vertebral bodies with a mild generalized curve to the left and a shallow lumbar lordosis. There is normal vertebral body height and alignment. The bone marrow signal is normal. No acute fracture. There is narrowing of the entire lumbar spinal canal secondary to congenitally short pedicles. Spinal cord: The conus is normal size, shape and signal characteristics, terminating at L1-L2. Soft tissues: Mild atrophy of the iliopsoas, paraspinous intraspinous musculature. The aorta and IVC flow voids are intact. The visualized kidneys are unremarkable. There is increased fluid signal within the interspinous space at L2-3, L3-4 and L4-5. There is mild edema in the subcutaneous fat. There is mild edema within the left paraspinous muscles at S1, S2, S3 and S4, which can be seen with muscle strain. DISCS/SPINAL CANAL/NEURAL FORAMINA: L1-L2: The intervertebral disc is normal. There is mild facet arthropathy with mild synovitis. L2-L3: There is mild disc degeneration with annular disc bulge asymmetric to the right flattening the ventral thecal sac with disc extending to the neural foramina without evidence of impingement or significant stenosis. There is mild facet arthropathy with mild synovitis. L3-L4: There is mild disc degeneration with annular disc bulge asymmetric to the right flattening the ventral thecal sac with disc extending to the neural foramina causing mild bilateral stenosis without evidence of neural impingement. There is mild facet arthropathy with mild synovitis. L4-L5: There is mild disc degeneration with annular disc bulge flattening the ventral thecal sac with disc extending to the neural foramina causing mild bilateral stenosis without evidence of neural impingement. There is mild facet joint arthropathy with moderate sized joint effusions are normal in morphology concerning for instability with moderate synovitis. L5-S1: There is mild disc degeneration with annular disc bulge flattening the ventral thecal sac with disc and osteophyte extending to the neural foramina causing a mild right and moderate left stenosis with mild impingement of the left L5 nerve or ganglia. There is minimal facet joint arthropathy with mild synovitis. IMPRESSION: 1. Mild disc degeneration at L2-3 through L5-S1 with annular disc bulging find a ventral thecal sac. 2. There is no degenerative spinal canal stenosis with a congenitally narrow spinal canal. 3. There is mild bilateral L3-4, mild bilateral L4-5 and mild right and moderate left L5-S1 neural foraminal stenosis with impingement of the left L5 nerve or ganglia. 4. There is mild facet arthropathy with mild to moderate synovitis with moderate joint effusions at L4-5 with moderate synovitis. 5. No evidence of fracture, infection, tumor or arachnoiditis. Electronically signed by: Sun Casanova MD 06/09/24 23:37 PM
--- NOTE | 2024-06-10 01:53 | History & Physical Report ---
Date of Service June 10, 2024 Assessment & Plan (1) UTI (urinary tract infection): Plan: - symptomatic, started on ceftriaxone in ED-> plan to continue - last culture from 05/2022 grew Klebsiella- sensitive to cephalosporins - f/u urine culture (2) Lumbar disc disease: Plan: - lumbar disc disease again noted on imaging - does note some concern for change in sensation/bowel+bladder incontinence but no significant central canal stenosis that would account for this - Pain regimen with Tylenol first line, Toradol second line, and then morphine q4H prn - consult ortho spine (3) Diabetes mellitus with insulin therapy: Plan: - insulin dependence at baseline - last hemoglobin a1c= 6.4 11/2023 - Lantus 10 units BID with sliding scale Plan Chronic Medical Conditions: HLD- continue statin GERD: continue home meds -> PPI and famotidine HTN: continue home medications- Lasix, lisinopril, metoprolol Hypothyroidism: continue levothyroxine Anxiety/Depression: Continue home medications - clonazepam prn, venlafaxine Meds per patient and [facility] fill record-> f/u on final med rec Diet: DM2 Code: Full Vte Prophylaxis: SCD pending ortho spine eval Dispo: Med Surg History of Present Illness Primary Care Provider: Kassy Clark, 59 year old female with a past medical history of hypothyroidism, DM2 with gastroparesis, anxiety/PTSD, GERD, HTN, HLD, lumbar radiculopathy presenting with concern for increased back pain/urinary symptoms. Long standing history of low back pain. Long drive in car this week to f/u with back surgeon. Sat down on spinning chair today and noticed increased pain/numbness vaginal/rectal area. States that she has trouble knowing when she needs to urinate/defecate. Notes pain down the right leg all the way to look. Spends most of day in bed, trouble getting around the house, progressive weakness secondary to pain. Lumbar pain has been worked up extensiovly in the past, had injections in 02/2024 and got some pain relief from them. ED Course Significant for: UA concern for UTI-> started on ceftriaxone. MRI lumbar spine with multilevel degenerative changes, no central canal stenosis. Allergies Allergy/AdvReac Type Severity Reaction Status Date / Time homatropine Allergy Severe Anaphylactic Verified 03/12/24 13:05 Shock hydrocodone Allergy Severe Anaphylactic Verified 03/12/24 13:05 Shock erythromycin base Allergy Intermediate Rash Verified 03/12/24 13:05 methylprednisolone Allergy Intermediate Rash Verified 03/12/24 13:05 ondansetron Allergy Intermediate "Cardiac Verified 03/12/24 13:05 symptoms" Sulfa (Sulfonamide Allergy Intermediate Rash Verified 03/12/24 13:05 Antibiotics) codeine Allergy Unknown listed in Verified 03/12/24 13:05 cardio records gabapentin AdvReac Severe Hallucinati Verified 06/10/24 02:29 ons hydromorphone AdvReac Intermediate Confusion Verified 06/10/24 02:29 Home Medications Medication Instructions Recorded Confirmed Type levothyroxine 112 mcg tablet 112 mcg PO QAM ##0 09/01/17 03/12/24 History venlafaxine 75 mg capsule,extended 75 mg PO QAM 02/16/20 03/12/24 History release 24 hr venlafaxine 37.5 mg tablet 37.5 mg PO QAM 08/24/21 03/12/24 History ibuprofen 200 mg tablet (Advil) 600 mg (3 x 200 mg) PO QID PRN 09/03/22 03/11/24 Rx fever or pain #30 tabs albuterol sulfate 90 mcg/actuation 2 puff inhalation QID PRN Wheezing 01/02/23 03/11/24 History aerosol inhaler fluticasone propionate 100 1 inh inhalation BID 01/02/23 03/12/24 History mcg/actuation blister powder for inhalation (Flovent Diskus) insulin aspart U-100 100 unit/mL See Rx Instructions .Route .COMPLEX 01/02/23 03/12/24 History (3 mL) subcutaneous pen linaclotide 145 mcg capsule 145 mcg PO QAM 01/02/23 03/12/24 History (Linzess) metoprolol tartrate 50 mg tablet 25 mg PO BID 01/02/23 03/12/24 History nystatin 100,000 unit/gram topical 1 applic topical UD PRN yeast 01/02/23 03/11/24 History cream infection rosuvastatin 20 mg tablet 20 mg PO HS 01/02/23 03/12/24 History meclizine 25 mg tablet 25 mg PO TID PRN dizziness #20 tabs 01/03/23 03/11/24 Rx promethazine 12.5 mg tablet 12.5 mg PO Q6 PRN Nausea And 01/04/23 03/11/24 Rx Vomiting #20 tabs blood sugar diagnostic (OneTouch #300 ea 01/27/23 03/20/23 Rx Ultra Test strips) clonazepam 1 mg tablet 1 mg PO TID Anxiety 01/27/23 03/12/24 History furosemide 40 mg tablet 40 mg PO QAM 01/27/23 03/12/24 History lisinopril 10 mg tablet 10 mg PO HS #0 tabs 01/27/23 03/11/24 History metoclopramide HCl 5 mg tablet 5 mg PO Q12H PRN Nausea 06/01/23 03/11/24 History omega-3s 300 ac-fbp-kvt-other 1 cap PO BID 06/01/23 03/12/24 History [id number] oil 1,000 mg capsule (Kemah-3 Fish Oil) ipratropium bromide 42 mcg (0.06 2 spray intranasal BID #45 mL 08/04/23 03/12/24 Rx %) nasal spray omeprazole 40 mg capsule,delayed 40 mg PO BID #60 caps 11/24/23 03/12/24 Rx release cholecalciferol (vitamin D3) 125 250 mcg PO QAM 03/11/24 03/12/24 History mcg (5,000 unit) tablet (Vitamin D3) insulin glargine 100 unit/mL (3 60 unit subcut HS 03/11/24 03/12/24 History mL) subcutaneous pen (Lantus Solostar U-100 Insulin) levocetirizine 5 mg tablet (Xyzal) 5 mg PO HS 03/11/24 03/11/24 History pen needle, diabetic 32 gauge x #500 ea 04/27/24 Rx 5/32" (Easy Comfort Pen [place]) Past Med/Surg History Problem List Sacral back pain (Acute) Lumbar disc disease (Acute) UTI (urinary tract infection) (Acute) Intractable back pain (Acute) BMI 40.0-44.9, adult Macromastia Shortness of breath (Acute) Chest pain (Acute) Diabetes mellitus with insulin therapy Incontinence Dysuria Right carotid bruit Headache Shortness of breath Hypoxia Bilateral tinnitus Dizziness Sensorineural hearing loss (SNHL) of both ears Lesion of bladder Mixed incontinence Lumbar facet arthropathy Post-nasal drip TMJ tenderness, left (Acute) TMJ arthralgia Acquired deviated nasal septum Fecal occult blood test positive Fecal occult blood test positive Abdominal pannus Abdominal pain, left upper quadrant (Acute) Diabetes type 1, controlled IDDM Hiatal hernia Laryngopharyngeal reflux (LPR) Chronic laryngitis Allergic rhinitis Allergic fungal sinusitis (AFS) GERD (gastroesophageal reflux disease) Well controlled and stable Anemia (Acute) Anxiety (Acute) Daytime somnolence (Acute) Liver lesion (Acute) Long QT syndrome (Acute) 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 Hypothyroidism PTSD (post-traumatic stress disorder) Anxiety and depression Hx of temporomandibular joint disorder Hypertension Hyperlipidemia Exercise-induced asthma Morbid obesity Hiatal hernia Claustrophobia Significant - does have issues with oxygen mask at times Fatty liver Intermittent palpitations Follows with Dr. Stout- "consistent with PVCs per cardio records"- on beta perico Acquired deviated nasal septum No significant symptoms per patient Surgical History H/O shoulder surgery right x 2 History of tooth extraction Hx of carpal tunnel repair left w/ulnar nerve transpostion History of arthroscopy of left shoulder LMA# + PNB. S/P epidural steroid injection S/P trigger finger release History of colonoscopy History of esophagogastroduodenoscopy (EGD) History of cryosurgery cervix History of ankle surgery right S/P appendectomy History of delivery x4 Family History Sister Breast cancer Renal failure Brother Diabetes Trisomy 21 Son Diabetes Grandfather (Maternal) Heart disease Father Pernicious anemia Other Hypertension No family history of adverse response to anesthesia Social History Smoking Status: Never smoker Second Hand Exposure: No; Do You Dip or Chew Tobacco: No; Hx Alcohol Use: No Hx Substance Use: No Preferred Language: Romansh Communication Ability: Effective Visual Impairment: No Limitations Hearing Ability: Normal Group Counselor Required: No Beliefs That Will Affect Care: None Current Living Situation: Family Other Information That Helps Us Care for You: No Feels Safe at Home: Yes Safety Concerns: Feels Safe At This Time Assistive Devices: CPAP and Glasses Review of Systems Review of Systems: As per above Physical Exam Physical Exam: Constitutional: well-appearing, no acute distress HEENT: NCAT, no conjunctival injection CV: regular rhythm, no murmur appreciated, extremities well-perfused, no LE edema Resp: CTABL, no wheezes/rales/rhonchi appreciated, no increased work of breathing GI: soft, nondistended, nontender, BS normoactive MSK: no gross deformities appreciated. Strength 5/5 LE B/L, +2 patellar refluxes B/L Skin: warm, dry, no rash appreciated Neuro: alert, oriented, no focal neurologic deficit appreciated Results & Data Results & Data Vital Signs (Past 12 Hours) Vital Signs Temp Pulse Pulse Resp BP BP Pulse Ox 06/09/24 23:57 93 06/09/24 23:57 118/68 06/09/24 23:09 94 06/09/24 22:42 92 06/09/24 22:20 94 H 22 151/85 H 95 06/09/24 22:15 151/85 H 06/09/24 21:03 100 H 22 97 06/09/24 21:01 144/92 H 06/09/24 21:01 144/92 H 06/09/24 20:54 104 H 21 06/09/24 20:33 96 H 17 06/09/24 20:12 94 H 16 06/09/24 19:42 17 06/09/24 19:33 84 06/09/24 19:21 83 22 06/09/24 19:04 93 H 18 173/96 H 97 06/09/24 16:56 36.6 C 111 H 20 167/86 H 96 O2 Del Method 06/09/24 23:57 06/09/24 23:57 06/09/24 23:09 06/09/24 22:42 06/09/24 22:20 Room Air 06/09/24 22:15 06/09/24 21:03 06/09/24 21:01 06/09/24 21:01 06/09/24 20:54 06/09/24 20:33 06/09/24 20:12 06/09/24 19:42 06/09/24 19:33 06/09/24 19:21 06/09/24 19:04 Room Air 06/09/24 16:56 Room Air Supervising Physician Co-Signing Physician Notes Attending addendum: I have physically seen this patient, have supervised the medical residents activities, and agree with the H&P unless as otherwise noted. Assessment and Plan: Urinary tract infection- Follow urine culture and sensitivity Previous culture from 06/13 grew Klebsiella Ceftriaxone 2 g IV every 24 hours IV fluids as noted Lumbar disc disease- MRI with multilevel degenerative disc disease and foraminal stenosis Reports intermittent issues with bowel and bladder control, however, has been present intermittently for months MRI without central canal stenosis or signs of cauda equina Consult orthopedic spine surgery Issue may be more related to diabetic neuropathy Diabetes mellitus- Last hemoglobin A1c on 12/13 was 6.4 Placed on Lantus with sliding scale as noted Hypertension- Continue furosemide, lisinopril and metoprolol with hold parameters Resident Activity Tracking Resident Involvement: Resident Care Provided Care Provided: Adult Hospital Medicine (1) UTI (urinary tract infection) Hematuria presence: without hematuria Urinary tract infection type: site unspecified Qualified Code(s): N39.0 - Urinary tract infection, site not specified
[2024-06-10] MEDS: MoRPHine SULFATE 2 MG/ML CARP IV PRN ×2 (03:41→08:04)
[2024-06-10] MEDS ORDERED: ACETAMINOPHEN 500 MG TAB PO PRN (04:48)
[2024-06-10] MEDS ORDERED: CARBOHYDRATES FOR HYPOGLYCEMIA PO PRN (05:00)
[2024-06-10] MEDS ORDERED: DEXTROSE 50% 50 ML SYRINGE IV PRN (05:00)
[2024-06-10] MEDS ORDERED: GLUCOSE 40% GEL 15 GM TUBE PO PRN (05:00)
[2024-06-10] MEDS ORDERED: GLUCOSE 10 TAB/TUBE PO PRN (05:00)
[2024-06-10] MEDS ORDERED: GLUCAGON FOR INJ 1 MG VIAL SQ PRN (05:00)
[2024-06-10] MEDS: LEVOTHYROXINE SODIUM 112 MCG TABLET PO SCH (06:08)
[2024-06-10] MEDS: VENLAFAXINE HCL XR 75 MG CAPXR PO SCH (07:57)
[2024-06-10] MEDS: METOPROLOL TARTRATE 25 MG TAB PO SCH (07:57)
[2024-06-10] MEDS: PANTOprazole 40 MG TAB PO SCH (07:57)
[2024-06-10] MEDS: CHOLECALCIFEROL 125 MCG (5,000 UNITS) TAB PO SCH (07:57)
[2024-06-10] MEDS: FUROSEMIDE 40 MG TAB PO SCH (07:57)
[2024-06-10] MEDS: clonazePAM 1 MG TAB PO SCH (08:03)
--- NOTE | 2024-06-10 08:52 | Consultation ---
Date of Consultation June 10, 2024 Assessment & Plan (1) Intractable back pain: I have reviewed her most recent lumbar MRI and clinical findings. I am unable to explain her current symptoms. There is no significant stenosis that would account for her perineum numbness. Will try and obtain a copy of her EMG results from Dr. Mays. In the interim I will get flexion-extension views of lumbar spine due to her facet hypertrophy that is noted on MRI. Will also order thoracic MRI without contrast due to her symptoms from the waist down. Would recommend neurology consult to follow along. Dr. Finley is unavailable today. He will review imaging tomorrow and make any final recommendations. History of Present Illness Attending Physician: Derrick Dunn History of Present Illness Is a pleasant 59-year-old female that we are asked see in consultation regarding her lumbar spine. She has had back and right leg pain/numbness off and on for the past 3 years. Symptoms include lower back pain that radiates down the right buttock, posterior thigh posterior calf and into her third and fourth toe. She has intermittent numbness in this pain pattern as well. She has had intermittent perineum numbness for the past 3 years although she states now it has been constant for the past year. She also notes a vibrating sensation in her vagina for the past year. She sometimes does not recognize when she has to have a bowel movement or the urge to urinate. This appears to be an ongoing complaint. She states at this point in time for the past year she has basically been homebound in her bedroom because of above-mentioned complaints. She has seen Dr. Jerrod Davila at [facility] for lumbar spine consultation. She then was referred for an EMG which was performed by Dr. Mays this year. Unfortunately I do not have these results. She is also been in pain management care of Dr. Angeles. Last injection was an RFA at L4-5 on March 12, 2024. She does report this did help some of her back pain. Sitting is provocative of her symptoms. Laying down on her side is her most comfortable position. She states she does not taking medication at home for pain control. Allergies Allergy/AdvReac Type Severity Reaction Status Date / Time homatropine Allergy Severe Anaphylactic Verified 03/12/24 13:05 Shock hydrocodone Allergy Severe Anaphylactic Verified 03/12/24 13:05 Shock erythromycin base Allergy Intermediate Rash Verified 03/12/24 13:05 methylprednisolone Allergy Intermediate Rash Verified 03/12/24 13:05 ondansetron Allergy Intermediate "Cardiac Verified 03/12/24 13:05 symptoms" Sulfa (Sulfonamide Allergy Intermediate Rash Verified 03/12/24 13:05 Antibiotics) codeine Allergy Unknown listed in Verified 03/12/24 13:05 cardio records gabapentin AdvReac Severe Hallucinati Verified 06/10/24 02:29 ons hydromorphone AdvReac Intermediate Confusion Verified 06/10/24 02:29 Home Medications Medication Instructions Recorded Confirmed Type levothyroxine 112 mcg tablet 112 mcg PO QAM ##0 09/01/17 03/12/24 History venlafaxine 75 mg capsule,extended 75 mg PO QAM 02/16/20 03/12/24 History release 24 hr venlafaxine 37.5 mg tablet 37.5 mg PO QAM 08/24/21 03/12/24 History ibuprofen 200 mg tablet (Advil) 600 mg (3 x 200 mg) PO QID PRN 09/03/22 03/11/24 Rx fever or pain #30 tabs albuterol sulfate 90 mcg/actuation 2 puff inhalation QID PRN Wheezing 01/02/23 03/11/24 History aerosol inhaler fluticasone propionate 100 1 inh inhalation BID 01/02/23 03/12/24 History mcg/actuation blister powder for inhalation (Flovent Diskus) insulin aspart U-100 100 unit/mL See Rx Instructions .Route .COMPLEX 01/02/23 03/12/24 History (3 mL) subcutaneous pen linaclotide 145 mcg capsule 145 mcg PO QAM 01/02/23 03/12/24 History (Linzess) metoprolol tartrate 50 mg tablet 25 mg PO BID 01/02/23 03/12/24 History nystatin 100,000 unit/gram topical 1 applic topical UD PRN yeast 01/02/23 03/11/24 History cream infection rosuvastatin 20 mg tablet 20 mg PO HS 01/02/23 03/12/24 History meclizine 25 mg tablet 25 mg PO TID PRN dizziness #20 tabs 01/03/23 03/11/24 Rx promethazine 12.5 mg tablet 12.5 mg PO Q6 PRN Nausea And 01/04/23 03/11/24 Rx Vomiting #20 tabs blood sugar diagnostic (OneTouch #300 ea 01/27/23 03/20/23 Rx Ultra Test strips) clonazepam 1 mg tablet 1 mg PO TID Anxiety 01/27/23 03/12/24 History furosemide 40 mg tablet 40 mg PO QAM 01/27/23 03/12/24 History lisinopril 10 mg tablet 10 mg PO HS #0 tabs 01/27/23 03/11/24 History metoclopramide HCl 5 mg tablet 5 mg PO Q12H PRN Nausea 06/01/23 03/11/24 History omega-3s 300 ro-mxl-qwi-other 1 cap PO BID 06/01/23 03/12/24 History [id number] oil 1,000 mg capsule (Ward-3 Fish Oil) ipratropium bromide 42 mcg (0.06 2 spray intranasal BID #45 mL 08/04/23 03/12/24 Rx %) nasal spray omeprazole 40 mg capsule,delayed 40 mg PO BID #60 caps 11/24/23 03/12/24 Rx release cholecalciferol (vitamin D3) 125 250 mcg PO QAM 03/11/24 03/12/24 History mcg (5,000 unit) tablet (Vitamin D3) insulin glargine 100 unit/mL (3 60 unit subcut HS 03/11/24 03/12/24 History mL) subcutaneous pen (Lantus Solostar U-100 Insulin) levocetirizine 5 mg tablet (Xyzal) 5 mg PO HS 03/11/24 03/11/24 History pen needle, diabetic 32 gauge x #500 ea 04/27/24 Rx 5/32" (Easy Comfort Pen [place]) Patient History Medical History Diabetes mellitus type 1 Arthritis Stress incontinence Sleep apnea cpap IBS (irritable bowel syndrome) GERD (gastroesophageal reflux disease) Gastroparesis ? Hypothyroidism PTSD (post-traumatic stress disorder) Anxiety and depression Hx of temporomandibular joint disorder Hypertension Hyperlipidemia Exercise-induced asthma Morbid obesity Hiatal hernia Claustrophobia Significant - does have issues with oxygen mask at times Fatty liver Intermittent palpitations Follows with Dr. Stout- "consistent with PVCs per cardio records"- on beta perico Acquired deviated nasal septum No significant symptoms per patient Surgical History H/O shoulder surgery right x 2 History of tooth extraction Hx of carpal tunnel repair left w/ulnar nerve transpostion History of arthroscopy of left shoulder LMA# + PNB. S/P epidural steroid injection S/P trigger finger release History of colonoscopy History of esophagogastroduodenoscopy (EGD) History of cryosurgery cervix History of ankle surgery right S/P appendectomy History of delivery x4 Family History Sister Breast cancer Renal failure Brother Diabetes Trisomy 21 Son Diabetes Grandfather (Maternal) Heart disease Father Pernicious anemia Other Hypertension No family history of adverse response to anesthesia Social History Smoking Status: Never smoker Second Hand Exposure: No; Do You Dip or Chew Tobacco: No; Hx Alcohol Use: No Hx Substance Use: No Preferred Language: Bruneian Communication Ability: Effective Visual Impairment: No Limitations Hearing Ability: Normal Hand Thermal Cutter Required: No Beliefs That Will Affect Care: None Current Living Situation: Family Other Information That Helps Us Care for You: No Feels Safe at Home: Yes Safety Concerns: Feels Safe At This Time Assistive Devices: CPAP and Glasses Review of Systems Review of Systems: All systems reviewed & are unremarkable except as noted in HPI & below Physical Exam Physical Exam: Laying in bed in no acute distress Cooperative with exam 5/5 bilateral EHL, dorsiflexion, plantar flexion, quadriceps, hamstrings, hip flexors, hip abductor's and hip adductor's Negative logrolling bilateral lower extremities No evidence of ankle clonus bilaterally Results & Data Vital Signs (Past 12 Hours) Vital Signs Temp Pulse Pulse Pulse Resp BP BP 06/10/24 07:41 36.9 C 82 18 138/82 06/10/24 02:15 36.8 C 79 20 159/85 H 06/10/24 00:12 06/09/24 23:57 118/68 06/09/24 23:57 06/09/24 23:57 118/68 06/09/24 23:09 06/09/24 22:42 06/09/24 22:20 94 H 22 151/85 H 06/09/24 22:15 151/85 H 06/09/24 21:03 100 H 22 06/09/24 21:01 144/92 H 06/09/24 21:01 144/92 H 06/09/24 20:54 104 H 21 Pulse Ox O2 Del Method 06/10/24 07:41 95 Room Air 06/10/24 02:15 97 Room Air 06/10/24 00:12 94 06/09/24 23:57 06/09/24 23:57 93 06/09/24 23:57 06/09/24 23:09 94 06/09/24 22:42 92 06/09/24 22:20 95 Room Air 06/09/24 22:15 06/09/24 21:03 97 06/09/24 21:01 06/09/24 21:01 06/09/24 20:54 Diagnostic Findings [place], [place] [phone] Magnetic Resonance Report Patient: LEANN LAZAR Admit Date: 06/09/24 MR#: [id number] Address1: [address] Acct ID:[id number] Address2: Date: 1965 [facility] Zip: [place] [address] Age: 59 Location: ED Sex: F Room/Bed: Att Phy: Diagnosis: BLADDER CONTROL ISSUES, LEG NUMBNESS, UTI/BURNING Holli Phy: Kassy Clark DO Service Date: 06/09/24 [facility] Phy: Interpreting Phy: Sun Casanova MDAdmit Phy: Ordering Phy: Dimitry Hahn M.D. cc: ~ Exam(s): MRI L SPINE Without Contrast EXAM: MR Lumbar Spine Without Intravenous Contrast CLINICAL HISTORY: Reason for exam: eval for cauda equina/disc disease. numbness in rt. TECHNIQUE: Magnetic resonance images of the lumbar spine without intravenous contrast in multiple planes. COMPARISON: Prior CT scan of the abdomen pelvis from January 13, 2024.. FINDINGS: Vertebrae: There are 5 lumbar type vertebral bodies with a mild generalized curve to the left and a shallow lumbar lordosis. There is normal vertebral body height and alignment. The bone marrow signal is normal. No acute fracture. There is narrowing of the entire lumbar spinal canal secondary to congenitally short pedicles. Spinal cord: The conus is normal size, shape and signal characteristics, terminating at L1-L2. Soft tissues: Mild atrophy of the iliopsoas, paraspinous intraspinous musculature. The aorta and IVC flow voids are intact. The visualized kidneys are unremarkable. There is increased fluid signal within the interspinous space at L2-3, L3-4 and L4-5. There is mild edema in the subcutaneous fat. There is mild edema within the left paraspinous muscles at S1, S2, S3 and S4, which can be seen with muscle strain. DISCS/SPINAL CANAL/NEURAL FORAMINA: L1-L2: The intervertebral disc is normal. There is mild facet arthropathy with mild synovitis. L2-L3: There is mild disc degeneration with annular disc bulge asymmetric to the right flattening the ventral thecal sac with disc extending to the neural foramina without evidence of impingement or significant stenosis. There is mild facet arthropathy with mild synovitis. L3-L4: There is mild disc degeneration with annular disc bulge asymmetric to the right flattening the ventral thecal sac with disc extending to the neural foramina causing mild bilateral stenosis without evidence of neural impingement. There is mild facet arthropathy with mild synovitis. L4-L5: There is mild disc degeneration with annular disc bulge flattening the ventral thecal sac with disc extending to the neural foramina causing mild bilateral stenosis without evidence of neural impingement. There is mild facet joint arthropathy with moderate sized joint effusions are normal in morphology concerning for instability with moderate synovitis. L5-S1: There is mild disc degeneration with annular disc bulge flattening the ventral thecal sac with disc and osteophyte extending to the neural foramina causing a mild right and moderate left stenosis with mild impingement of the left L5 nerve or ganglia. There is minimal facet joint arthropathy with mild synovitis. IMPRESSION: 1. Mild disc degeneration at L2-3 through L5-S1 with annular disc bulging find a ventral thecal sac. 2. There is no degenerative spinal canal stenosis with a congenitally narrow spinal canal. 3. There is mild bilateral L3-4, mild bilateral L4-5 and mild right and moderate left L5-S1 neural foraminal stenosis with impingement of the left L5 nerve or ganglia. 4. There is mild facet arthropathy with mild to moderate synovitis with moderate joint effusions at L4-5 with moderate synovitis. 5. No evidence of fracture, infection, tumor or arachnoiditis. Electronically signed by: Sun Casanova MD 06/09/24 23:37 PM Dictated: 06/09/24 233 Transcribed: 06/09/244
--- OUTSIDE RECORDS SUMMARY | 2024-06-10 09:11 | External Medical Summary | Continuity of Care Document ---
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 Name Role Phone Kassy Clark Primary Care Physician [phone] [id number] Date(s): 06/01/24 - 06/01/24 [facility] [facility] [address], [address], [address] [place] [address] [phone] Encounter Diagnosis Lumbar radiculopathy(Discharge Diagnosis) - 06/01/24 Discharge Disposition: Home or Self Care Attending Physician: MD Mendoza Jesse E Referring Physician: ARELY Welch Kathy Knarr Allergies, Adverse Reactions, Alerts Substance Criticality Severity Reaction Reaction Severity Status codeine Unable to assess criticality Severe Anaphylaxis Resolved erythromycin rash Active methylPREDNISolone Unable to assess criticality Moderate Rash Active predniSONE rash Active gabapentin unknown Active homatropine-hydrocodone swel ling in airway & face, unable to breath anaphylatic shock Active sulfa drugs Rash Active HYDROmorphone Unable to assess criticality Moderate Confusion Active lamoTRIgine Rash Active metFORMIN muscle aches, fatigue Active Assessment and Plan Extracted from: Title:Clinical Document Author:MD Mendoza Jesse E Date:06/01/24 ORTHOPAEDICS OUTPATIENT NOTE Name: LEANN LAZAR Patient Number: [id number] : 1965 Date of Service: 06/01/2024 Please review patient here for which we have seen in the past for vaginal rectal pain in the past has been working with Dr. Angeles comes again complaining of leg pains today and recently had an EMG done that reported some L4-L5 radiculopathy I discussed with patient the need to get a new MRI given these worsening leg symptoms and she became adamant about doing surgery based on the EMG I said we would need an MRI at that point she rate and began raising her voice any yelling and be caring very threatening for which I discussed I did not feel comfortable and that she began raising her first more and and "said she would make my life a living hell"'s at that point I said I was leaving this appointment and she said she was then ria us and 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 Security was called based on her raising her voice that all everybody in the clinic hallway heard and was escorted out of clinic Immunizations Given and Recorded Vaccine Date Status Refusal Reason tetanus/diphtheria/pertuss, acel (Tdap) 11/25/22 G iven tetanus/diphtheria/pertuss, acel (Tdap) 11/23/10 R ecorded pneumococcal 20-valent conjugate vaccine 11/25/22 Given zoster vaccine, inactivated 11/25/22 Given SARS-CoV-2 (COVID-19) mRNA BNT-162b2 vax 01/05/21 Recorded SARS-CoV-2 (COVID-19) mRNA BNT-162b2 vax 12/15/20 Recorded SARS-CoV-2 (COVID-19) mRNA BNT-162b2 vax 11/19/20 Recorded SARS-CoV-2 (COVID-19) mRNA BNT-162b2 vax 10/23/20 Recorded rabies vaccine, purified chick embryo 06/07/20 Rec orded rabies vaccine, purified chick embryo 06/01/20 Rec orded rabies vaccine, purified chick embryo 05/28/20 Rec orded pneumococcal 23-valent vaccine 09/03/17 Recorded influenza virus vaccine, inactivated 09/03/17 Paul rded influenza virus vaccine, inactivated 06/21/14 Give n influenza virus vaccine, inactivated 06/26/12 Give n Medications ACCU-CHEK SMARTVIEW TEST STRIP Start: 12/16/18 3:17:10 PM EDT, See Instructions, Disp# 100, Refills: 5, USE TO TEST 4 TIMES A DAY NEEDED, Pharmacy: [facility]/pharmacy #[id number], USE TO TEST 4 TIMES A DAY NEEDED Start Date: 12/16/18 Status: Ordered Albuterol (Eqv-ProAir HFA) 90 mcg/inh inhalation aerosol Start: 04/21/23 5:59:00 PM EDT, See Instructions, Disp# 8.5 each, Refills: 5, INHALE 2 PUFFS 4 TIMESDAILY NEEDED FOR WHEEZING, Pharmacy: [facility] #[id number] Start Date: 04/21/23 Status: Ordered BD needle Ultra-Fine III Short Pen 31G x 8 mm Start: 11/06/23 3:11:00 PM EST, See Instructions, Disp# 100 pen_needle, Use as instructed with insulin pen, [id number] Start Date: 11/06/23 Status: Ordered clonazePAM 1 mg oral tablet Start: 05/03/24 12:17:00 PM EDT, 0.5-1 TAB, PO, tid, Disp# 60 tab, Refills: 0, PRN: NEEDED FOR ANXIETY, [id number] Start Date: 05/03/24 Stop Date: 06/02/24 Status: Ordered Culturelle Digestive Health oral capsule Start: 10/03/17 2:26:00 PM EST, 1 cap, PO, Daily, Disp# 30 cap, Refills: 3, [id number] Start Date: 10/03/17 Stop Date: 01/31/18 Status: Ordered famotidine 40 mg oral tablet Start: 05/04/24 12:44:00 PM EDT, 1 tab, PO, Daily, Disp# 30 tab, Refills: 0, [id number] Start Date: 05/04/24 Status: Ordered fluticasone 50 mcg/inh nasal spray See Instructions, Disp# 16 mL, Refills: 5, INHALE 2 SPRAY IN EACH NOSTRIL DAILY, Pharmacy: [facility] [id number] Start Date: 02/26/21 Status: Ordered furosemide 40 mg oral tablet Start: 08/05/23 9:41:00 AM EST, 1 tab, PO, Daily, Disp# 90 tab, Refills: 3, Pharmacy: [facility] [id number] Start Date: 08/05/23 Status: Ordered Insulin Aspart FlexPen 100 units/mL injectable solution Start: 12/08/23 4:02:00 PM EDT, See Instructions, Disp# 15 mL, Refills: 3, INJECT 1 UNIT FOR EVERY 5CARBS WITH MEALS, USE 80-100 UNITS DAILY, [id number] Start Date: 12/08/23 Status: Ordered Lantus Solostar Pen 100 units/mL subcutaneous solution Start: 07/08/23 11:29:00 AM EDT, See Instructions, Disp# 15 mL, Refills: 5, INJECT 40 UNITS UNDER THE SKIN DAILY, Pharmacy: [facility]/pharmacy #[id number] Start Date: 07/08/23 Status: Ordered levothyroxine 112 mcg (0.112 mg) oral tablet Start: 02/23/24 1:04:00 PM EDT, See Instructions, Disp# 90 tab, Refills: 3, TAKE 1 TABLET BY MOUTH EVERY DAY, Pharmacy: [facility]/pharmacy #[id number] Start Date: 02/23/24 Status: Ordered Linzess 145 mcg oral capsule Start: 05/25/24 8:30:00 AM EDT, See Instructions, Disp# 30 cap, Refills: 3, TAKE 1 CAPSULE IN THE MORNING (CAN FILL 04/30), [id number] Start Date: 05/25/24 Status: Ordered lisinopril 10 mg oral tablet Start: 07/01/23 10:02:00 AM EDT, 1 tab, PO, Daily, Disp# 90 tab, Refills: 3, Pharmacy: [id number] Start Date: 07/01/23 Status: Ordered loratadine 10 mg oral tablet Start: 03/23/23 9:37:00 AM EDT, See Instructions, Disp# 90 tab, Refills: 4, TAKE 1 TABLET BY MOUTH EVERY DAY, [id number] Start Date: 03/23/23 Status: Ordered meclizine 25 mg oral tablet Start: 01/06/23 4:24:00 PM EDT, 1 tab, PO, tid, PRN: as needed for dizziness Start Date: 01/06/23 Status: Ordered metoclopramide 5 mg oral tablet Start: 05/25/24 11:20:00 AM EDT, 1 tab, PO, q6h, Disp# 120 tab, Refills: 0, NOT to be taken with Promethazine. Patient aware., Pharmacy: [facility]/pharmacy #[id number] Start Date: 05/25/24 Stop Date: 06/24/24 Status: Ordered metoprolol succinate 25 mg oral tablet, extended release Start: 03/24/24 11:38:00 AM EDT, 1 tab, PO, Daily, Disp# 90 tab, Refills: 3, Pharmacy: [facility]/pharmacy #[id number] Start Date: 03/24/24 Status: Ordered metoprolol succinate 25 mg oral tablet, extended release Start: 03/30/24 8:52:00 AM EDT, 1 tab, PO, Daily, Disp# 90 tab, Refills: 3, Pharmacy: [facility]/pharmacy #[id number] Start Date: 03/30/24 Status: Ordered nystatin 100,000 units/g topical cream Start: 08/25/23 2:15:00 PM EST, See Instructions, Disp# 30 g, Refills: 0, APPLY A THIN FILM BENEATH BREASTS & ABDOMINAL FOLDS, Pharmacy: [facility]/pharmacy #[id number] Start Date: 08/25/23 Status: Ordered omeprazole 40 mg oral delayed release capsule Start: 05/04/24 12:44:00 PM EDT, See Instructions, Disp# 30 cap, Refills: 5, TAKE 1 CAPSULE twice daily, Pharmacy: [facility]/pharmacy #[id number] Start Date: 05/04/24 Status: Ordered ONE TOUCH DELICA 33G LANCETS ONE TOUCH DELICA 33G LANCETS, See Instructions, Disp# 100 unknown unit, Refills: 5, USE TO TEST 4 TIMES A DAY NEEDED, Pharmacy [id number] Start Date: 12/07/21 Status: Ordered One Touch Delica Plus (33G) Lancets Start: 05/09/20 8:09:00 AM EDT, See Instructions, Disp# 100 each, Refills: 0, test 4 times daily PRN, Pharmacy: [facility]/pharmacy #[id number] Start Date: 05/09/20 Status: Ordered One Touch Ultra 2 Glucose Monitor Start: 05/09/20 8:09:00 AM EDT, See Instructions, Disp# 1 each, Refills: 0, Test 4 times daily PRN, Pharmacy: [facility]/pharmacy #[id number] Start Date: 05/09/20 Status: Ordered One Touch Ultra Blue Test Strips Start: 02/23/24 1:04:00 PM EDT, See Instructions, Disp# 100 each, Refills: 3, Use to test 4 times daily as needed, Note to Pharmacy: [email or web address], Pharmacy: [facility]/pharmacy #[id number] Start Date: 02/23/24 Status: Ordered ONE TOUCH ULTRA BLUE TEST STRP Start: 04/10/22 4:29:00 PM EDT, ONE TOUCH ULTRA BLUE TEST STRP, See Instructions, Disp# 100 strip, Refills: 3, USE TO TEST 4 TIMES A DAY NEEDED, Pharmacy [id number] Start Date: 04/10/22 Status: Ordered ONE TOUCH ULTRA BLUE TEST STRP ONE TOUCH ULTRA BLUE TEST STRP, See Instructions, Disp# 100 strip, Refills: 3, USE TO TEST 4 TIMES A DAY NEEDED, Pharmacy [id number] Start Date: 12/31/21 Status: Ordered ONE TOUCH ULTRA BLUE TEST STRP Start: 07/22/22 9:01:00 PM EDT, ONE TOUCH ULTRA BLUE TEST STRP, See Instructions, Disp# 100 strip, Refills: 3, USE TO TEST 4 TIMES A DAY NEEDED, Pharmacy [id number] Start Date: 07/22/22 Status: Ordered ONETOUCH ULTRA TEST STRIP USE TO TEST 4 TIMES A DAY NEEDED Start Date: 11/15/22 Status: Ordered Ozempic (0.25 mg or 0.5 mg dose) 2 mg/3 mL subQ pen Start: 04/16/24 9:45:00 AM EDT, See Instructions, subQ, q7days, Disp# 3 mL, Inject 0.25 mg every 7 days X 4 weeks then increase to 0.5 mg SQ every 7 days., [id number] Supply Start Date: 04/16/24 Status: Ordered promethazine 12.5 mg oral tablet Start: 01/01/23 12:13:00 PM EDT, See Instructions, Disp# 16 tab, Refills: 1, TAKE 1 TABLET BY MOUTH EVERY 6 HOURS NEEDED FOR NAUSEA/VOMITING, [id number] Start Date: 01/01/23 Status: Ordered rosuvastatin 40 mg oral tablet Start: 02/23/24 1:04:00 PM EDT, 1 tab, PO, Daily, Disp# 30 tab, Refills: 3, Pharmacy: [facility]/pharmacy #[id number] Start Date: 02/23/24 Stop Date: 06/22/24 Status: Ordered Slow-Mag 71.5 mg-119 mg oral delayed release tablet Start: 01/16/23 3:05:00 PM EDT, 2 tab, PO, bid, Disp# 180 tab, Refills: 3, Pharmacy: [facility]/pharmacy #[id number] Start Date: 01/16/23 Status: Ordered venlafaxine 37.5 mg oral capsule, extended release Start: 02/24/24 10:09:00 AM EDT, 1 cap, PO, Daily, Disp# 90 cap, Refills: 3, take with 75mg capsule for total of 112.5mg daily do not crush or chew, [id number] Start Date: 02/24/24 Status: Ordered venlafaxine 75 mg oral capsule, extended release Start: 05/04/24 12:43:00 PM EDT, 1 cap, PO, Daily, Disp# 90 cap, Refills: 3, do not crush or chew, [id number] Start Date: 05/04/24 Status: Ordered Vitamin C Start: 12/10/16 1:19:00 PM EDT, 500 mg =, PO, Daily Start Date: 12/10/16 Status: Ordered Vitamin D3 10,000 intl units (250 mcg) oral capsule Start: 07/08/23 11:24:00 AM EDT, 1 cap, PO, Daily, Disp# 30 cap, Refills: 3, [id number] Start Date: 07/08/23 Stop Date: 11/05/23 Status: Ordered Mental Status 06/01/24 Barriers to Learning one year None evide nt Mandatory Health Literacy Documentation Yes Health Literacy Communication Barriers N ever Primary Language Swedish Problem List Condition Confirmation Course Effective Dates Status H ealth Status Informant Amenorrhea Confirmed Active Lumbar facet arthropathy Confirmed Active Carpal tunnel syndrome, left Confirmed Active Rotator cuff syndrome Confirmed Active Impingement of right shoulder Confirmed Active DJD (degenerative joint disease) of cervical spine Confirmed Active Lower extremity edema Confirmed Active Fatigue Confirmed Active Fatty liver Confirmed Active Gastroparesis due to DM Confirmed Active GERD Confirmed Active Hyperlipidemia Confirmed Active HTN (hypertension) Confirmed Active Hypothyroidism Confirmed 01/18/09 Active Right lumbar radiculopathy Confirmed Active Mild mitral regurgitation Confirmed Active MIXED HYPERLIPIDEMIA Confirmed Active MARSHA on CPAP Confirmed Active Paresthesia of saddle area Confirmed Active PTSD (post-traumatic stress disorder) Confirmed Active Protruded lumbar disc Confirmed Active Prolonged QT interval Confirmed Active Tenosynovitis of thumb Confirmed Active Cubital tunnel syndrome Confirmed Active Incontinent of urine Confirmed Active Vocal cord nodule Confirmed Active Diagnosis Diagnosis Type Effective Dates Health Status Clinical Service Informant Lumbar radiculopathy Discharge Diagnosis 06/01/24 Procedures Procedure Date Related Diagnosis Body Site Status Mammogram - screening 1 03/11/23 C ompleted Chest X-ray 2 01/02/[address] angiography of chest with contrast 3 01/02/23 Completed Doppler ultrasonography of v enous structure 4 01/02/23 Completed Chest X-ray 5 11/20/22 Completed Rotator cuff arthropathy of right shoulder 11/19/[address] of neck 6 09/26/22 Completed Carpal tunnel release 7 09/03/22 C ompleted Decompression of ulnar nerve at elbow 8 09/03/22 Completed EMG - Electromyography 9 07/29/22 Completed Upper GI (gastrointestinal) endoscopy 10 04/02/22 Completed Arthroscopic repair of rotator cuff 11 02/12/22 Completed Injection into facet joint o f lumbar spine using fluoroscopic guidance 01/28/22 Completed Chest x-ray 12 01/09/22 Completed Doppler ultrasonography of v eins of bilateral lower extremities 13 01/09/22 C ompleted ECG (electrocardiography) procedure 14 01/09/22 Completed Chest x-ray 15 12/25/21 Completed Ultrasonography guided biops y of left breast 16, 17 12/19/21 Completed Ultrasound guided biopsy 18 12/19/21 Completed Colonoscopy 19 12/18/21 Completed Ultrasound of left breast 20 12/12/21 Completed Mammogram 21 12/05/21 Completed Upper GI (gastrointestinal) endoscopy 22 11/04/[address] of abdomen and pelvis 23 11/03/21 Completed X-ray of left foot 24 05/23/[address] of abdomen with contrast 25 05/17/[address] of lumbar spine 26 03/29/21 Com pleted History of orthopedic surgery 27 03/22/21 Completed Release of trigger thumb 28 03/22/21 Completed Chest X-ray 29 02/16/[address] angio of chest 30 02/16/20 Comp leted Upper GI endoscopy 31 08/04/19 Com pleted Mammogram 32 07/29/19 Completed Chest x-ray 33 07/04/[address] of abdomen and pelvis 34 07/04/19 Completed X-ray of abdomen 35 07/04/19 Compl eted Appendectomy 04/06/[address] of abdomen 36 04/06/[address] of head and Brain wo con 37 04/06/19 Completed Hand X-ray left 38 12/13/17 Comple rebeca Venous doppler ultrasonography 39 12/13/17 Completed Hand X-ray left 40 12/11/17 Comple rebeca EMG finding 41 10/23/17 Completed Chest X-ray 42 09/03/[address] of chest 43 09/03/17 Completed Chest X-ray 44 09/01/17 Completed Ultrasound- pelvic 45 06/20/[address] of abdomen and pelvis 46 06/15/17 Completed Mammogram 47 03/26/17 Completed MRI of lumbar spine 48, 49 02/14/17 Completed CXR - Chest X-ray 50 02/10/17 Comp leted Emergency medical services 51 02/06/17 Completed Hip X-ray 52 02/06/17 Completed X-ray of left knee 53 02/06/17 Com pleted Emergency department patient visit 54 05/30/16 Completed X-ray of abdomen 55 05/30/16 Compl eted Abdominal X-ray normal 56 02/28/16 Completed Nuclear medicine diagnostic procedure 57 02/28/16 Completed Colonoscopy 58 02/21/[address] of abdomen and pelvis wit h contrast 59 02/04/[address] of head 60 02/04/16 Completed Exercise stress echocardiography 61 02/04/16 Completed Transvaginal ultrasound scan 62 02/04/16 Completed X-ray of abdomen 63 02/04/16 Compl eted Date of pathology report 64 01/15/16 Completed Date of last PAP test 65 03/10/15 Completed Ultrasound scan of lower leg right 66 01/31/15 Completed HIDA scan 67 11/25/14 Completed Surgery 2003 Completed excision of nodule 09/22/99 Comple rebeca Blood transfusion Complet ed bone spur removal - right shouler Completed cesarrean section 69 Comp leted X-ray of right foot 70 Co mpleted 1IMPRESSION: ACR BI-RADS CATEGORY 1: NEGATIVE There is no mammographic edvidence of malignancy. A 1 year screening mammogram is recommended. (03/19/2024) The patient will receive written notification of the results. 2Impression: No acute cardiopulmonary findings 3Impression: 1. No pulmonary emboli identified 2. No acute intrathoracic findings 4Right lower extremity Impression: No evidence of deep venous thrombus within the right lower extremity 5Impression: 1. Elevated right hemidiaphragam with right basilar linear densities. This favors subsegmental atelectasis. 2. Stable mild cardiomegaly. 6impression: periodontal abcess in the left mandible at the level of the left first mandibular molar with mild associated bony destruction. No drainable fluid collection is seen. Mild reactive lymphadenopathy is seen 7Left 8Left 9This is an abnormal study It is supportive of ulnar neuropathy at elbow in the left upper extremity. There is evidence of CTS in the left upper extremity 10-Normal esophagus. Dilated 54 fr with no resistance and no muscosal tear. - Erythematous gastric fold in proximal greater curvature. - Pylorus s/p 100 units botox and 20 mm dilation. - Normal duodenum. 11Left Shoulder Arthroscopy, Subacromial Decompression, Rotator Cuff Repair; Biceps Tenotomy; Open Distal Clavicle Excision 12Mild pulmonary edema. 13No evidence of deep venous thrombus. 14Sinus rhythm Low voltage QRS Prolonged QT Abnormal ECG 15No acute process 16Ultrasound-guided core needle biopsy of the hypoechoic mass in the left 2:00 breast, with clip placement. The patient will receive pathology results from her referring provider. 17ACR BI-RADS CATEGORY 2: BENIGN There is no mammographic evidence of malignancy. A 1 year screening mammogram is recommended.(12/19/2022) 18ULTRASOUND GUIDED BIOPSY ultrasound guided core needle biopsy of the hypoechoic mass in the left 2:00 breast, with clip placement. 19Impression: - Non bledding internal hemorrhoids. -The examination was otherwise normal. -No specimens collected. 20ACR BI-RADS CATEORY 4: SUSPICIOUS Hypoechoic 7 mm circumscribed mass in the left 2:00 breast on ultrasound, which likely corresponds with the mammographic mass. the finding is indeterminate and ultrasound-guided core needle biopsy isreccomended for further evaluation. 21ACR BI-RADS CATEGORY 0: INCOMPLETE EVALUTION: NEED ADDITIONAL IMAGING EVALUATION The 6mm mass in the upper outer left breast needs additional imaging evaluation. 22impression: - Normal esophagus - Normal duodenal bulb and second portion of the duodenum - No specimens obtained 23impression 1. No evidence of acute abnormality 2. 2.1cm hypoattenuating lesion in the liver is stable from prior exam but does not definitely represent a cyst. if not previously evaluated, nonemergent MRI liver protocol can be performed 24Nondisplaced fracture within the distal phalanx of the left second toe. 25Impression: 1. No hiatal hernia. 2. Hepatomegaaly with diffuse hepatic steatosis. 3. Multiple liver lesions with nodular enhancement, likely hemangiomas. Recommend MRI abdomen for definitive characterization. 261. no acute fx or traumatic malignment 2. mild degenerative changes as detailed above 27left trigger thumb 28Left thumb 29No acute process. 301. No acute intrathoracic abnormality, specifically there is no evidence of acute aortic pathology or pulmonary thromboembolic disease. 2. Hepatomegaly with hepatic steatosis. 31large hiatal hernia. multiple gastric polyps one gastric polyp. acute gastritis. biopsied. miguel duadenal bulb and second portion of the duodenum. 32there is no mammographic evidence of malignancy 33Clear lungs Cardiomegaly 34nonspecific bowel gas pattern with air fluids levels 35Nonspecific bowel gas pattern with air fluid levels Hepatosplenomegaly 361, Findings raise concern for subtle early acute appendicitis. Alternatively the appearance could represent a developing mucocele and/or chronic change. Surgical consult advised 2. Hepatic steatosis. Correlate with liver function test to exclude steatohepatitis as a cause for abdominal pain 37no acute intracranial abnormality 38Mild soft tissue edema. Otherwise negative study 39No DVT within the upper extremity. No change from prior exam 40Negative study 41[facility] - diagnosis of meralgia paresthetica in both lower extremities. There is evidence of chronic L4-L5 radiculopathy in the left lower extremity. Correlation with MRI of the lumbar spine is recommended. There is no evidence of radiculopthy in the right lower extremity. 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 No evidence of acute pulmonary embolism. 2. Hepatic steatosis with an area or presumed focal fatty sparing within the left hepatic lobe. 3. Mild mosaic groundglass attenuation the lungs, likely related to airway disease or less likely small vessel disease 44Impression: No active disease in the chest. 45Nonvisualization of the left ovary. Otherwise normal pelvic ultrasound. Normal thickness endometrial stripe of 2mm. 461. Fatty infiltration of liver. 2. Otherwise negative study of abdomen and pelvis. 3. No change compared to prior exam. 47wnl/repeat 1 yr 18Z3-R2 No significant central canal or neural foraminal narrowing. L3-L4 Small broad-based posteriordisc buldge asymmetric to the right resulting in mild bilateral neural foraminal narrowinng. No significant central canal narrowing. 01T3-S5 Small broad-based posterior disc bulde without significant central canal narrowing. There is a mild to moderate bilateral neural foraminal narrowing. L5- S1 Small broad-based posterior disc bulge with a focal central annular tear. No significant central canal narrowing. Moderate bilateral neural foramina narrowing. Overall, no significant change compared to the prior study. No fracture or subluxation within the lumbar spine. 50Mild cariomegaly. Otherwise negative study 51hip pain afater a fall 52no fracture or dislocation within the pelvis, hips sacrum or left femur 53no acute fractures identified 54c/o back pain 55Normal 56normal 571. No evidence for cystic duct obstruction 2. Gallbladder ejection fraction calculated to be 90% 58Preparation of the colon was poor. Stool in the transverse colon, in the ascending colon and in thececum. No specimens collected. 591. Minimal discoid atelectasis at the lung bases. 2. hepatic steatosis 3. Enhancing lesion in the right hepatic lobe possibly a cavernous hemangioma. MRI might be confirmatory 4. Colorectal fecal retention. 60No acute intracranial abnormality 61Negative stress echo for ischemia at 71% MPHR, the patient did not attain target heart rate. Cannotrule out ischemic changes as faster heart rates. 62Normal study 631. No active disease in the chest 2. Nonobstructed abdominal bowel gas pattern nothing colonic fecal retention. 64endometrium, biopsy: atrophic/inactive-appearing endometrium cervis biopys: inflammed squamous and endocervial mucosa. negative for dysplasia 65WNL 66There is no sonographic evidence of DVT 67Normal Ejection fraction of 94% 68Right shoulder 69in 96, 98, 2000, & 02 70Slight spurring at the achiles tendon insertion. Otherwise negative. Social History Social History Type Response Smoking Status Never smoked cigaret anthony Sex Female Sex Representation Female (finding) Ortho Outpt Note * ARELY Hanna Kelly A: PERFORM Event Display: Ortho Outpt Note Authored Date: [id number] Name:LEANN LAZAR Patient Number:[id number] :1965 Date of Service:06/01/2024 CHIEF COMPLAINT:Trouble walking, left leg pain HPI:Patient returns clinic today she was previously seen by ouroffice [id number]. [facility] today noting thatmichael continues to have "debilitating pain" on and off. She notes that for the last year she has "basically been bedridden". When asked about her symptoms she tellsme that her "legs do not work". She feels heavy weights in her legsand experiences what she feels is spasming in her buttock area bilaterally. She does report a fall 3 years ago. She tells methat she does not think pain medication will help and is not a "pain medication person". She has been working with Dr. Angeles for injections and hadablations. She tells me the only relief she gets when she is lying flat in bed, she cannot even sit up. She denies any upper extremity symptoms. She notes that she has had shoulder surgery bilaterally in the [place] area. She last didphysical therapy more than 3 years ago. She does describe pain down the right leg in the posterior aspectradiating down her leg into the fourth and fifth digits of her right foot. PHYSICAL EXAM:Patient is is observed ambulating down the hallway without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
--- OUTSIDE RECORDS SUMMARY | 2024-06-10 09:11 | External Medical Summary | Continuity of Care Document ---
Author Name Unknown Organization [facility] [address] [id number] Address [facility] [place], [place] [id number] Care Team Providers Care [employer] Consultant Name Role Phone Kassy Clark Primary Care Physician [phone] [facility] [id number] Date(s): 04/15/24 - 04/15/24 [facility] 0 E Status Overload [place] [id number] [facility] [address] [address] Encounter Diagnosis Lumbar radiculopathy, chronic(Discharge Diagnosis) - 04/15/24 Discharge Disposition: Home or Self Care Attending Physician: MD Welch Jesse Allergies, Adverse Reactions, Alerts Substance Criticality Severity [...] Rash Active metFORMIN muscle aches, fatigue Active Immunizations Given and Recorded Vaccine Date Status [...] TEST 4 TIMES A DAY NEEDED, Pharmacy: [facility] #[id number], USE TO TEST 4 TIMES A DAY NEEDED Start Date: 12/16/18 Status: Ordered Albuterol (Eqv-ProAir HFA) 90 mcg/inh inhalation aerosol Start: 04/21/23 5:59:00 PM EDT, See Instructions, Disp# 8.5 each, Refills: 5, INHALE 2 PUFFS 4 TIMESDAILY NEEDED FOR WHEEZING, Pharmacy[id number] Start Date: 04/21/23 Status: Ordered BD needle Ultra-Fine III Short Pen 31G x 8 mm Start: 11/06/23 3:11:00 PM EST, See Instructions, Disp# 100 pen_needle, Use as instructed with insulin pen, [id number] Start Date: 11/06/23 Status: Ordered clonazePAM 1 mg oral tablet Start: 01/27/24 3:50:00 PM EDT, 0.5-1 tab, PO, tid, Disp# 70 tab, Refills: 0, PRN: Anxiety, Pharmacy[id number] Start Date: 01/27/24 Stop Date: 02/26/24 Status: Ordered clonazePAM 1 mg oral tablet Start: 03/30/24 11:28:00 AM EDT, See Instructions, Disp# 90 tab, Refills: 0, 1 tab PO 1/2 to 1 tab TID for anxiety, Pharmacy: [id number] Start Date: 03/30/24 Status: Ordered Culturee Digestive Health oral capsule Start: 10/03/17 2:26:00 PM EST, 1 cap, PO, Daily, Disp# 30 cap, Refills: 3, Pharmacy: [facility] #[id number] Start Date: 10/03/17 Stop Date: 01/31/18 Status: Ordered fluticasone 50 mcg/inh nasal spray See Instructions, Disp# 16 mL, Refills: 5, INHALE 2 SPRAY IN EACH NOSTRIL DAILY, Pharmacy: [facility] [id number] Start Date: 02/26/21 Status: Ordered furosemide 40 mg oral tablet Start: 08/05/23 9:41:00 AM EST, 1 tab, PO, Daily, Disp# 90 tab, Refills: 3, Pharmacy: [facility] [id number] Start Date: 08/05/23 Status: Ordered Insulin Aspart FlexPen 100 units/mL injectable solution Start: 12/08/23 4:02:00 PM EDT, See Instructions, Disp# 15 mL, Refills: 3, INJECT 1 UNIT FOR EVERY 5CARBS WITH MEALS, USE 80-100 UNITS DAILY, Pharmacy: [facility] #[id number] Start Date: 12/08/23 Status: Ordered Lantus Solostar Pen 100 units/mL subcutaneous solution Start: 07/08/23 11:29:00 AM EDT, See Instructions, Disp# 15 mL, Refills: 5, INJECT 40 UNITS UNDER THE SKIN DAILY, Pharmacy: [facility] #[id number] Start Date: 07/08/23 Status: Ordered levothyroxine 112 mcg (0.112 mg) oral tablet Start: 02/23/24 1:04:00 PM EDT, See Instructions, Disp# 90 tab, Refills: 3, TAKE 1 TABLET BY MOUTH EVERY DAY, Pharmacy: [facility] #[id number] Start Date: 02/23/24 Status: Ordered Linzess 145 mcg oral capsule Start: 08/30/19 9:06:00 AM EST, See Instructions, Disp# 30 cap, Refills: 5, TAKE 1 CAPSULE IN THE MORNING (CAN FILL 04/30), Pharmacy: [facility] #[id number] Start Date: 08/30/19 Status: Ordered lisinopril 10 mg oral tablet Start: 07/01/23 10:02:00 AM EDT, 1 tab, PO, Daily, Disp# 90 tab, Refills: 3, Pharmacy: [facility] [id number] Start Date: 07/01/23 Status: Ordered loratadine 10 mg oral tablet Start: 03/23/23 9:37:00 AM EDT, See Instructions, Disp# 90 tab, Refills: 4, TAKE 1 TABLET BY MOUTH EVERY DAY, [id number] Start Date: 03/23/23 Status: Ordered meclizine 25 mg oral tablet Start: 01/06/23 4:24:00 PM EDT, 1 tab, PO, tid, PRN: as needed for dizziness Start Date: 01/06/23 Status: Ordered metoclopramide 5 mg oral tablet Start: 02/23/24 2:17:00 PM EDT, 1 tab, PO, q6h, Disp# 120 tab, Refills: 0, NOT to be taken with Promethazine. Patient aware., [id number] Start Date: 02/23/24 Stop Date: 03/24/24 Status: Ordered metoprolol succinate 25 mg oral tablet, extended release Start: 03/24/24 11:38:00 AM EDT, 1 tab, PO, Daily, Disp# 90 tab, Refills: 3, [id number] Start Date: 03/24/24 Status: Ordered metoprolol succinate 25 mg oral tablet, extended release Start: 03/30/24 8:52:00 AM EDT, 1 tab, PO, Daily, Disp# 90 tab, Refills: 3, [id number] Start Date: 03/30/24 Status: Ordered nystatin 100,000 units/g topical cream Start: 08/25/23 2:15:00 PM EST, See Instructions, Disp# 30 g, Refills: 0, APPLY A THIN FILM BENEATH BREASTS & ABDOMINAL FOLDS, [id number] Start Date: 08/25/23 Status: Ordered omeprazole 40 mg oral delayed release capsule See Instructions, Disp# 30 cap, Refills: 5, TAKE 1 CAPSULE twice daily, Pharmacy: [facility] [id number] Start Date: 01/07/21 Status: Ordered ONE TOUCH DELICA 33G LANCETS ONE TOUCH DELICA 33G LANCETS, See Instructions, Disp# 100 unknown unit, Refills: 5, USE TO TEST 4 TIMES A DAY NEEDED, Pharmacy [id number] Start Date: 12/07/21 Status: Ordered One Touch Delica Plus (33G) Lancets Start: 05/09/20 8:09:00 AM EDT, See Instructions, Disp# 100 each, Refills: 0, test 4 times daily PRN, Pharmacy: [id number] Start Date: 05/09/20 Status: Ordered One Touch Ultra 2 Glucose Monitor Start: 05/09/20 8:09:00 AM EDT, See Instructions, Disp# 1 each, Refills: 0, Test 4 times daily PRN, Pharmacy: [id number] Start Date: 05/09/20 Status: Ordered One Touch Ultra Blue Test Strips Start: 02/23/24 1:04:00 PM EDT, See Instructions, Disp# 100 each, Refills: 3, Use to test 4 times daily as needed, Note to Pharmacy: E11.9, Pharmacy: [id number] Start Date: 02/23/24 Status: Ordered ONE TOUCH ULTRA BLUE TEST STRP Start: 04/10/22 4:29:00 PM EDT, ONE TOUCH ULTRA BLUE TEST STRP, See Instructions, Disp# 100 strip, Refills: 3, USE TO TEST 4 TIMES A DAY NEEDED, Pharmacy [id number] Start Date: 04/10/22 Status: Ordered ONE TOUCH ULTRA BLUE TEST STRP ONE TOUCH ULTRA BLUE TEST STRP, See Instructions, Disp# 100 strip, Refills: 3, USE TO TEST 4 TIMES A DAY NEEDED, Pharmacy [facility] [id number] Start Date: 12/31/21 Status: Ordered ONE TOUCH ULTRA BLUE TEST STRP Start: 07/22/22 9:01:00 PM EDT, ONE TOUCH ULTRA BLUE TEST STRP, See Instructions, Disp# 100 strip, Refills: 3, USE TO TEST 4 TIMES A DAY NEEDED, Pharmacy [facility] [id number] Start Date: 07/22/22 Status: Ordered ONETOUCH ULTRA [...] 0.5 mg SQ every 7 days., Pharmacy: [id number], Supply Start Date: 04/16/24 Status: Ordered promethazine 12.5 mg oral tablet Start: 01/01/23 12:13:00 PM EDT, See Instructions, Disp# 16 tab, Refills: 1, TAKE 1 TABLET BY MOUTH EVERY 6 HOURS NEEDED FOR NAUSEA/VOMITING, [id number] Start Date: 01/01/23 Status: Ordered rosuvastatin 40 mg oral tablet Start: 02/23/24 1:04:00 PM EDT, 1 tab, PO, Daily, Disp# 30 tab, Refills: 3, [id number] Start Date: 02/23/24 Stop Date: 06/22/24 Status: Ordered Slow-Mag 71.5 mg-119 mg oral delayed release tablet Start: 01/16/23 3:05:00 PM EDT, 2 tab, PO, bid, Disp# 180 tab, Refills: 3, Pharmacy: [facility] #[id number] Start Date: 01/16/23 Status: Ordered venlafaxine 37.5 mg oral capsule, extended release Start: 02/24/24 10:09:00 AM EDT, 1 cap, PO, Daily, Disp# 90 cap, Refills: 3, take with 75mg capsule for total of 112.5mg daily do not crush or chew, [id number] Start Date: 02/24/24 Status: Ordered venlafaxine 75 mg oral capsule, extended release Start: 04/28/23 3:56:00 PM EDT, 1 cap, PO, Daily, Disp# 90 cap, Refills: 3, do not crush or chew, [id number] Start Date: 04/28/23 Status: Ordered Vitamin C Start: 12/10/16 1:19:00 PM EDT, 500 mg =, PO, Daily Start Date: 12/10/16 Status: Ordered Vitamin D3 10,000 intl units (250 mcg) oral capsule Start: 07/08/23 11:24:00 AM EDT, 1 cap, PO, Daily, Disp# 30 cap, Refills: 3, Pharmacy: [facility][id number] Start Date: 07/08/23 Stop Date: 11/05/23 Status: Ordered Mental Status 04/15/24 Barriers to Learning one year None evide nt Mandatory Health Literacy Documentation Yes Health Literacy Communication Barriers N ever Primary Language Portuguese Problem List Condition Confirmation Course Effective Dates [...] Diagnosis Diagnosis Type Effective Dates Health Status Cl inical Service Informant Lumbar radiculopathy, chronic Discharge Diagnosis 04/15/24 Non-Specified Procedures Procedure Date Related Diagnosis Body Site [...] compared to prior exam. 47wnl/repeat 1 yr 76H4-V1 No significant central canal or neural foraminal narrowing. L3-L4 Small broad-based posteriordisc buldge asymmetric to the right resulting in mild bilateral neural foraminal narrowinng. No significant central canal narrowing. 46D1-Z5 Small broad-based posterior disc bulde without significant [...] anthony Sex Female Sex Representation Female (finding) Patient Care team information Care Team Personnel Name: MD Maldonado, Uriel Camacho Position: Physician - Family Med Member Role: Lifetime Relationship Address: [address] [place] [address] [place] Name: MD Reilly, Mary Position: Physician - Family Med Member Role: Lifetime Relationship Address: [address] [place] [address] [place] Name: DO Clark Alonna Paige Position: Resident Member Role: Primary Care Provider Address: [address] [place] [address] [place] Care Team Related Persons Name: ANDREA LAZAR
--- OUTSIDE RECORDS SUMMARY | 2024-06-10 09:11 | External Medical Summary | Continuity of Care Document ---
Author Name Unknown Organization [address] [place] [phone] Care Team Providers Care Clay 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 Name Role Phone Kassy Clark Primary Care Physician [phone] Encounter [facility]BR [id number] Date(s): 05/04/24 - 05/04/24 [facility] 0 [facility] 207 [facility] [address], [address] [place] [address] [phone] Discharge Disposition: Home or Self Care Attending Physician: MD Grover Dongsheng Allergies, Adverse Reactions, Alerts Substance Criticality Severity [...] TEST 4 TIMES A DAY NEEDED, Pharmacy: [facility] #[id number], USE TO TEST 4 TIMES A DAY NEEDED Start Date: 12/16/18 Status: Ordered Albuterol (Eqv-ProAir HFA) 90 mcg/inh inhalation aerosol Start: 04/21/23 5:59:00 PM EDT, See Instructions, Disp# 8.5 each, Refills: 5, INHALE 2 PUFFS 4 TIMESDAILY NEEDED FOR WHEEZING, [id number] Start Date: 04/21/23 Status: Ordered BD needle Ultra-Fine III Short Pen 31G x 8 mm Start: 11/06/23 3:11:00 PM EST, See Instructions, Disp# 100 pen_needle, Use as instructed with insulin pen, [id number] Start Date: 11/06/23 Status: Ordered clonazePAM 1 mg oral tablet Start: 05/03/24 12:17:00 PM EDT, 0.5-1 TAB, PO, tid, Disp# 60 tab, Refills: 0, PRN: NEEDED FOR ANXIETY, Pharmacy: [id number] Start Date: 05/03/24 Stop Date: 06/02/24 Status: Ordered Culturelle Digestive Health oral capsule Start: 10/03/17 2:26:00 PM EST, 1 cap, PO, Daily, Disp# 30 cap, Refills: 3, Pharmacy: [facility] #[id number] Start Date: 10/03/17 Stop Date: 01/31/18 Status: Ordered famotidine 40 mg oral tablet Start: 05/04/24 12:44:00 PM EDT, 1 tab, PO, Daily, Disp# 30 tab, Refills: 0, Pharmacy: [facility] #[id number] Start Date: 05/04/24 Status: Ordered fluticasone 50 mcg/inh nasal spray See Instructions, Disp# 16 mL, Refills: 5, INHALE 2 SPRAY IN EACH NOSTRIL DAILY, Pharmacy: [id number] Start Date: 02/26/21 Status: Ordered furosemide 40 mg oral tablet Start: 08/05/23 9:41:00 AM EST, 1 tab, PO, Daily, Disp# 90 tab, Refills: 3, Pharmacy: [facility] [id number] Start Date: 08/05/23 Status: Ordered Insulin Aspart FlexPen 100 units/mL injectable solution Start: 12/08/23 4:02:00 PM EDT, See Instructions, Disp# 15 mL, Refills: 3, INJECT 1 UNIT FOR EVERY 5CARBS WITH MEALS, USE 80-100 UNITS DAILY, [id number] Start Date: 12/08/23 Status: Ordered Lantus Solostar Pen 100 units/mL subcutaneous solution Start: 07/08/23 11:29:00 AM EDT, See Instructions, Disp# 15 mL, Refills: 5, INJECT 40 UNITS UNDER THE SKIN DAILY, [id number] Start Date: 07/08/23 Status: Ordered levothyroxine 112 mcg (0.112 mg) oral tablet Start: 02/23/24 1:04:00 PM EDT, See Instructions, Disp# 90 tab, Refills: 3, TAKE 1 TABLET BY MOUTH EVERY DAY, [id number] Start Date: 02/23/24 Status: Ordered Linzess 145 mcg oral capsule Start: 08/30/19 9:06:00 AM EST, See Instructions, Disp# 30 cap, Refills: 5, TAKE 1 CAPSULE IN THE MORNING (CAN FILL 04/30), [id number] Start Date: 08/30/19 Status: Ordered lisinopril 10 mg oral tablet Start: 07/01/23 10:02:00 AM EDT, 1 tab, PO, Daily, Disp# 90 tab, Refills: 3, Pharmacy: [id number] Start Date: 07/01/23 Status: Ordered loratadine 10 mg oral tablet Start: 03/23/23 9:37:00 AM EDT, See Instructions, Disp# 90 tab, Refills: 4, TAKE 1 TABLET BY MOUTH EVERY DAY, Pharmacy: [id number] Start Date: 03/23/23 Status: Ordered meclizine 25 mg oral tablet Start: 01/06/23 4:24:00 PM EDT, 1 tab, PO, tid, PRN: as needed for dizziness Start Date: 01/06/23 Status: Ordered metoclopramide 5 mg oral tablet Start: 02/23/24 2:17:00 PM EDT, 1 tab, PO, q6h, Disp# 120 tab, Refills: 0, NOT to be taken with Promethazine. Patient aware., Pharmacy: [facility] #[id number] Start Date: 02/23/24 Stop Date: 03/24/24 Status: Ordered metoprolol succinate 25 mg oral tablet, extended release Start: 03/24/24 11:38:00 AM EDT, 1 tab, PO, Daily, Disp# 90 tab, Refills: 3, [id number] Start Date: 03/24/24 Status: Ordered metoprolol succinate 25 mg oral tablet, extended release Start: 03/30/24 8:52:00 AM EDT, 1 tab, PO, Daily, Disp# 90 tab, Refills: 3, [id number] Start Date: 03/30/24 Status: Ordered nystatin 100,000 units/g topical cream Start: 08/25/23 2:15:00 PM EST, See Instructions, Disp# 30 g, Refills: 0, APPLY A THIN FILM BENEATH BREASTS & ABDOMINAL FOLDS, Pharmacy: [facility] #[id number] Start Date: 08/25/23 Status: Ordered omeprazole 40 mg oral delayed release capsule Start: 05/04/24 12:44:00 PM EDT, See Instructions, Disp# 30 cap, Refills: 5, TAKE 1 CAPSULE twice daily, Pharmacy: [facility] #[id number] Start Date: 05/04/24 Status: Ordered ONE TOUCH DELICA 33G LANCETS ONE TOUCH DELICA 33G LANCETS, See Instructions, Disp# 100 unknown unit, Refills: 5, USE TO TEST 4 TIMES A DAY NEEDED, Pharmacy [id number] Start Date: 12/07/21 Status: Ordered One Touch Delica Plus (33G) Lancets Start: 05/09/20 8:09:00 AM EDT, See Instructions, Disp# 100 each, Refills: 0, test 4 times daily PRN, Pharmacy: [id number] Start Date: 05/09/20 Status: Ordered One Touch Ultra 2 Glucose Monitor Start: 05/09/20 8:09:00 AM EDT, See Instructions, Disp# 1 each, Refills: 0, Test 4 times daily PRN, Pharmacy: [id number] Start Date: 05/09/20 Status: Ordered One Touch Ultra Blue Test Strips Start: 02/23/24 1:04:00 PM EDT, See Instructions, Disp# 100 each, Refills: 3, Use to test 4 times daily as needed, Note to Pharmacy: E11.9, Pharmacy: [facility] #[id number] Start Date: 02/23/24 Status: Ordered ONE TOUCH ULTRA BLUE TEST STRP Start: 04/10/22 4:29:00 PM EDT, ONE TOUCH ULTRA BLUE TEST STRP, See Instructions, Disp# 100 strip, Refills: 3, USE TO TEST 4 TIMES A DAY NEEDED, Pharmacy [id number] Start Date: 04/10/22 Status: Ordered ONE TOUCH ULTRA BLUE TEST STRP ONE TOUCH ULTRA BLUE TEST STRP, See Instructions, Disp# 100 strip, Refills: 3, USE TO TEST 4 TIMES A DAY NEEDED, Pharmacy [id number] Start Date: 12/31/21 Status: Ordered ONE TOUCH ULTRA BLUE TEST STRP Start: 07/22/22 9:01:00 PM EDT, ONE TOUCH ULTRA BLUE TEST STRP, See Instructions, Disp# 100 strip, Refills: 3, USE TO TEST 4 TIMES A DAY NEEDED, Pharmacy [id number] Start Date: 07/22/22 Status: Ordered ONETOUCH ULTRA [...] 0.5 mg SQ every 7 days., Pharm[id number], Supply Start Date: 04/16/24 Status: Ordered promethazine 12.5 mg oral tablet Start: 01/01/23 12:13:00 PM EDT, See Instructions, Disp# 16 tab, Refills: 1, TAKE 1 TABLET BY MOUTH EVERY 6 HOURS NEEDED FOR NAUSEA/VOMITING, [id number] Start Date: 01/01/23 Status: Ordered rosuvastatin 40 mg oral tablet Start: 02/23/24 1:04:00 PM EDT, 1 tab, PO, Daily, Disp# 30 tab, Refills: 3, [id number] Start Date: 02/23/24 Stop Date: 06/22/24 Status: Ordered Slow-Mag 71.5 mg-119 mg oral delayed release tablet Start: 01/16/23 3:05:00 PM EDT, 2 tab, PO, bid, Disp# 180 tab, Refills: 3, Pharmacy: [facility] #[id number] Start Date: 01/16/23 Status: Ordered venlafaxine 37.5 mg oral capsule, extended release Start: 02/24/24 10:09:00 AM EDT, 1 cap, PO, Daily, Disp# 90 cap, Refills: 3, take with 75mg capsule for total of 112.5mg daily do not crush or chew, [id number] Start Date: 02/24/24 Status: Ordered venlafaxine 75 mg oral capsule, extended release Start: 05/04/24 12:43:00 PM EDT, 1 cap, PO, Daily, Disp# 90 cap, Refills: 3, do not crush or chew, [id number] Start Date: 05/04/24 Status: Ordered Vitamin C Start: 12/10/16 1:19:00 PM EDT, 500 mg =, PO, Daily Start Date: 12/10/16 Status: Ordered Vitamin D3 10,000 intl units (250 mcg) oral capsule Start: 07/08/23 11:24:00 AM EDT, 1 cap, PO, Daily, Disp# 30 cap, Refills: 3, [id number] Start Date: 07/08/23 Stop Date: 11/05/23 Status: Ordered Problem List Condition Confirmation Course Effective Dates [...] Confirmed Active Vocal cord nodule Confirmed Active Procedures Procedure Date Related Diagnosis Body Site [...] compared to prior exam. 47wnl/repeat 1 yr 15X0-P7 No significant central canal or neural foraminal narrowing. L3-L4 Small broad-based posteriordisc buldge asymmetric to the right resulting in mild bilateral neural foraminal narrowinng. No significant central canal narrowing. 63K7-R7 Small broad-based posterior disc bulde without significant [...] Family Med Member Role: Lifetime Relationship Address: [address] [place] [address] [place] Name: MD Reilly, Mary Position: Physician - Family Med Member Role: Lifetime Relationship Address: [address] [place] [address] [place] Name: DO Clark Alonna Paige Position: Resident Member Role: Primary Care Provider Address: [address] [place] [address] Care Team Related Persons Name: ANDREA LAZAR
--- OUTSIDE RECORDS SUMMARY | 2024-06-10 09:12 | External Medical Summary | Continuity of Care Document ---
Author Name Unknown Organization [address] [place] [phone] Care Team Providers Care Billposter Name Role Phone Kassy Clark Primary Care Physician [phone] Encounter [facility] [id number] Date(s): 04/12/24 - 04/12/24 [facility] [address] [facility] [facility] [address] [place] [address] [phone] Encounter Diagnosis Nail avulsion of toe(Discharge Diagnosis) - 04/12/24 Discharge Disposition: Home or Self Care Attending Physician: MD Jocelyn, Roxana Henderson Allergies, Adverse Reactions, Alerts Substance Criticality Severity Reaction Reaction Severity Status codeine Unable to assess criticality Severe Anaphylaxis Resolved erythromycin rash Active methylPREDNISolone Unable to assess criticality Moderate Rash Active predniSONE rash Active homatropine-hydrocodone swel ling in airway & face, unable to breath anaphylatic shock Active sulfa drugs Rash Active metFORMIN muscle aches, fatigue Active lamoTRIgine Rash Active HYDROmorphone Unable to assess criticality Moderate Confusion Active gabapentin unknown Active Immunizations Given and Recorded Vaccine Date [...] TEST 4 TIMES A DAY NEEDED, [id number] USE TO TEST 4 TIMES A DAY NEEDED Start Date: 12/16/18 Status: Ordered Albuterol (Eqv-ProAir HFA) 90 mcg/inh inhalation aerosol Start: 04/21/23 5:59:00 PM EDT, See Instructions, Disp# 8.5 each, Refills: 5, INHALE 2 PUFFS 4 TIMESDAILY NEEDED FOR WHEEZING, [id number] Start Date: 04/21/23 Status: Ordered BD needle Ultra-Fine III Short Pen 31G x 8 mm Start: 11/06/23 3:11:00 PM EST, See Instructions, Disp# 100 pen_needle, Use as instructed with insulin pen, Pharmacy: [facility] #[id number] Start Date: 11/06/23 Status: Ordered clonazePAM 1 mg oral tablet Start: 01/27/24 3:50:00 PM EDT, 0.5-1 tab, PO, tid, Disp# 70 tab, Refills: 0, PRN: Anxiety, [facility] #[id number] Start Date: 01/27/24 Stop Date: 02/26/24 Status: Ordered clonazePAM 1 mg oral tablet Start: 03/30/24 11:28:00 AM EDT, See Instructions, Disp# 90 tab, Refills: 0, 1 tab PO 1/2 to 1 tab TID for anxiety, Pharmacy: [facility] #[id number] Start Date: 03/30/24 Status: Ordered Culturee Digestive Health oral capsule Start: 10/03/17 2:26:00 PM EST, 1 cap, PO, Daily, Disp# 30 cap, Refills: 3, [id number] Start Date: 10/03/17 Stop Date: 01/31/18 Status: Ordered fluticasone 50 mcg/inh nasal spray See Instructions, Disp# 16 mL, Refills: 5, INHALE 2 SPRAY IN EACH NOSTRIL DAILY, Pharmacy: [facility] [id number] Start Date: 02/26/21 Status: Ordered furosemide 40 mg oral tablet Start: 08/05/23 9:41:00 AM EST, 1 tab, PO, Daily, Disp# 90 tab, Refills: 3, Pharmacy: [facility] [id number] Start Date: 08/05/23 Status: Ordered Insulin Aspart FlexPen 100 units/mL injectable solution Start: 12/08/23 4:02:00 PM EDT, See Instructions, Disp# 15 mL, Refills: 3, INJECT 1 UNIT FOR EVERY 5CARBS WITH MEALS, USE 80-100 UNITS DAILY, [id number] Start Date: 12/08/23 Status: Ordered Lantus Solostar Pen 100 units/mL subcutaneous solution Start: 07/08/23 11:29:00 AM EDT, See Instructions, Disp# 15 mL, Refills: 5, INJECT 40 UNITS UNDER THE SKIN DAILY, [id number] Start Date: 07/08/23 Status: Ordered levothyroxine 112 mcg (0.112 mg) oral tablet Start: 02/23/24 1:04:00 PM EDT, See Instructions, Disp# 90 tab, Refills: 3, TAKE 1 TABLET BY MOUTH EVERY DAY, [id number] Start Date: 02/23/24 Status: Ordered Linzess 145 mcg oral capsule Start: 08/30/19 9:06:00 AM EST, See Instructions, Disp# 30 cap, Refills: 5, TAKE 1 CAPSULE IN THE MORNING (CAN FILL 04/30), [id number] Start Date: 08/30/19 Status: Ordered lisinopril 10 mg oral tablet Start: 07/01/23 10:02:00 AM EDT, 1 tab, PO, Daily, Disp# 90 tab, Refills: 3, Pharmacy: [facility] [id number] Start Date: 07/01/23 Status: Ordered loratadine 10 mg oral tablet Start: 03/23/23 9:37:00 AM EDT, See Instructions, Disp# 90 tab, Refills: 4, TAKE 1 TABLET BY MOUTH EVERY DAY, [id number] Start Date: 03/23/23 Status: Ordered meclizine 25 mg oral tablet Start: 01/06/23 4:24:00 PM EDT, 1 tab, PO, tid, PRN: as needed for dizziness Start Date: 01/06/23 Status: Ordered metoclopramide 5 mg oral tablet Start: 02/23/24 2:17:00 PM EDT, 1 tab, PO, q6h, Disp# 120 tab, Refills: 0, NOT to be taken with Promethazine. Patient aware., [id number] Start Date: 02/23/24 Stop Date: 03/24/24 Status: Ordered metoprolol succinate 25 mg oral tablet, extended release Start: 03/24/24 11:38:00 AM EDT, 1 tab, PO, Daily, Disp# 90 tab, Refills: 3, [id number] Start Date: 03/24/24 Status: Ordered metoprolol succinate 25 mg oral tablet, extended release Start: 03/30/24 8:52:00 AM EDT, 1 tab, PO, Daily, Disp# 90 tab, Refills: 3, [id number] Start Date: 03/30/24 Status: Ordered nystatin 100,000 units/g topical cream Start: 08/25/23 2:15:00 PM EST, See Instructions, Disp# 30 g, Refills: 0, APPLY A THIN FILM BENEATH BREASTS & ABDOMINAL FOLDS, [id number] Start Date: 08/25/23 Status: Ordered omeprazole 40 mg oral delayed release capsule See Instructions, Disp# 30 cap, Refills: 5, TAKE 1 CAPSULE twice daily, Pharmacy: [id number] Start Date: 01/07/21 Status: Ordered ONE TOUCH DELICA 33G LANCETS ONE TOUCH DELICA 33G LANCETS, See Instructions, Disp# 100 unknown unit, Refills: 5, USE TO TEST 4 TIMES A DAY NEEDED, [facility]acy [id number] Start Date: 12/07/21 Status: Ordered One Touch Delica Plus (33G) Lancets Start: 05/09/20 8:09:00 AM EDT, See Instructions, Disp# 100 each, Refills: 0, test 4 times daily PRN, [id number] Start Date: 05/09/20 Status: Ordered One Touch Ultra 2 Glucose Monitor Start: 05/09/20 8:09:00 AM EDT, See Instructions, Disp# 1 each, Refills: 0, Test 4 times daily PRN, Pharmacy: [facility] #[id number] Start Date: 05/09/20 Status: Ordered One Touch Ultra Blue Test Strips Start: 02/23/24 1:04:00 PM EDT, See Instructions, Disp# 100 each, Refills: 3, Use to test 4 times daily as needed, Note to Pharmacy: E11.9, Pharmacy: [facility] #[id number] Start Date: 02/23/24 Status: Ordered ONE TOUCH ULTRA BLUE TEST STRP Start: 04/10/22 4:29:00 PM EDT, ONE TOUCH ULTRA BLUE TEST STRP, See Instructions, Disp# 100 strip, Refills: 3, USE TO TEST 4 TIMES A DAY NEEDED, Pharmacy [id number] Start Date: 04/10/22 Status: Ordered ONE TOUCH ULTRA BLUE TEST STRP ONE TOUCH ULTRA BLUE TEST STRP, See Instructions, Disp# 100 strip, Refills: 3, USE TO TEST 4 TIMES A DAY NEEDED, Pharmacy [id number] Start Date: 12/31/21 Status: Ordered ONE TOUCH ULTRA BLUE TEST STRP Start: 07/22/22 9:01:00 PM EDT, ONE TOUCH ULTRA BLUE TEST STRP, See Instructions, Disp# 100 strip, Refills: 3, USE TO TEST 4 TIMES A DAY NEEDED, Pharmacy [id number] Start Date: 07/22/22 Status: Ordered ONETOUCH ULTRA TEST STRIP USE TO TEST 4 TIMES A DAY NEEDED Start Date: 11/15/22 Status: Ordered promethazine 12.5 mg oral tablet Start: 01/01/23 12:13:00 PM EDT, See Instructions, Disp# 16 tab, Refills: 1, TAKE 1 TABLET BY MOUTH EVERY 6 HOURS NEEDED FOR NAUSEA/VOMITING, [id number] Start Date: 01/01/23 Status: Ordered rosuvastatin 40 mg oral tablet Start: 02/23/24 1:04:00 PM EDT, 1 tab, PO, Daily, Disp# 30 tab, Refills: 3, [id number] Start Date: 02/23/24 Stop Date: 06/22/24 Status: Ordered Slow-Mag 71.5 mg-119 mg oral delayed release tablet Start: 01/16/23 3:05:00 PM EDT, 2 tab, PO, bid, Disp# 180 tab, Refills: 3, [id number] Start Date: 01/16/23 Status: Ordered venlafaxine 37.5 mg oral capsule, extended release Start: 02/24/24 10:09:00 AM EDT, 1 cap, PO, Daily, Disp# 90 cap, Refills: 3, take with 75mg capsule for total of 112.5mg daily do not crush or chew, [id number] Start Date: 02/24/24 Status: Ordered venlafaxine 75 mg oral capsule, extended release Start: 04/28/23 3:56:00 PM EDT, 1 cap, PO, Daily, Disp# 90 cap, Refills: 3, do not crush or chew, [id number] Start Date: 04/28/23 Status: Ordered Vitamin C Start: 12/10/16 1:19:00 PM EDT, 500 mg =, PO, Daily Start Date: 12/10/16 Status: Ordered Vitamin D3 10,000 intl units (250 mcg) oral capsule Start: 07/08/23 11:24:00 AM EDT, 1 cap, PO, Daily, Disp# 30 cap, Refills: 3, [id number] Start Date: 07/08/23 Stop Date: 11/05/23 Status: Ordered Mental Status 04/12/24 Barriers to Learning one year None evide nt Mandatory Health Literacy Documentation Yes Health Literacy Communication Barriers N ever Primary Language Gibral[place] Problem List Condition Confirmation Course Effective Dates [...] Dates Health Status Cl inical Service Informant Nail avulsion of toe Discharge Diagnosis 04/12/24 Non-Specified Procedures Procedure Date Related Diagnosis Body [...] Completed Hand X-ray left 40 12/11/17 Comple [facility] EMG finding 41 10/23/17 Completed Chest X-ray [...] compared to prior exam. 47wnl/repeat 1 yr 60B3-U5 No significant central canal or neural foraminal narrowing. L3-L4 Small broad-based posteriordisc buldge asymmetric to the right resulting in mild bilateral neural foraminal narrowinng. No significant central canal narrowing. 18K5-Z6 Small broad-based posterior disc bulde without significant [...] at the achiles tendon insertion. Otherwise negative. Vital Signs Most recent to oldest [Reference Range]: 1 Height 158.7 cm (04/12/24 1:04 PM) Patient Weight 114.7 kg (04/12/24 1:04 PM) Body Mass Index 45.54 kg/m2 (04/12/24 1:04 PM) Heart Rate 74 bpm (04/12/24 1:04 PM) Respiratory Rate 17 br/min (04/12/24 1:04 PM) Blood Pressure 124/68mmHg (04/12/24 1:07 PM) Social History Social History Type Response Smoking Status Never smoked cigaret anthony Sex Female Sex Representation Female (finding) Patient Care team information Care Team Personnel Name: MD Maldonado, Uriel Camacho Position: Physician - Family Med Member Role: Lifetime Relationship Address: [address] [place] [address] [place] Name: MD Reilly, Mary Position: Physician - Family Med Member Role: Lifetime Relationship Address: [address] [place] [address] [place] Name: DO Clark Alonna Paige Position: Resident Member Role: Primary Care Provider Address: [address] [place] [address] Care Team Related Persons Name: ANDREA LAZAR
--- OUTSIDE RECORDS SUMMARY | 2024-06-10 09:12 | External Medical Summary | Continuity of Care Document ---
Author Name Unknown Organization [facility] [address] [id number] Address [facility] [place], [place] [id number] Care Team Providers Care Provider Relations Rep Name Role Phone Kassy Clark Primary Care Physician [phone] Encounter [facility] FINNBR [id number] Date(s): 03/17/24 - 03/17/24 [facility] 0 Al Detal [facility] [address] [facility] Medicine [address] [address] Encounter Diagnosis Right knee pain(Discharge Diagnosis) - 03/17/24 Right leg pain(Discharge Diagnosis) - 03/17/24 Discharge Disposition: Home or Self Care Attending Physician: MD Welch Jesse Allergies, Adverse Reactions, Alerts Substance Criticality Severity Reaction Reaction Severity Status codeine Unable to assess criticality Severe Anaphylaxis Resolved predniSONE rash Active gabapentin unknown Active erythromycin rash Active methylPREDNISolone Unable to assess criticality Moderate Rash Active homatropine-hydrocodone swel ling in airway & [...] TEST 4 TIMES A DAY NEEDED, Pharmacy: [facility] #[id number], USE TO TEST 4 TIMES A DAY NEEDED Start Date: 12/16/18 Status: Ordered Albuterol (Eqv-ProAir HFA) 90 mcg/inh inhalation aerosol Start: 04/21/23 5:59:00 PM EDT, See Instructions, Disp# 8.5 each, Refills: 5, INHALE 2 PUFFS 4 TIMESDAILY NEEDED FOR WHEEZING, Pharmacy: [facility]/pharmacy #[id number] Start Date: 04/21/23 Status: Ordered BD needle Ultra-Fine III Short Pen 31G x 8 mm Start: 11/06/23 3:11:00 PM EST, See Instructions, Disp# 100 pen_needle, Use as instructed with insulin pen, [id number] Start Date: 11/06/23 Status: Ordered clonazePAM 1 mg oral tablet Start: 01/27/24 3:50:00 PM EDT, 0.5-1 tab, PO, tid, Disp# 70 tab, Refills: 0, PRN: Anxiety, Pharmacy:[facility]/pharmacy #[id number] Start Date: 01/27/24 Stop Date: 02/26/24 Status: Ordered Culturelle Digestive Health oral capsule Start: 10/03/17 2:26:00 PM EST, 1 cap, PO, Daily, Disp# 30 cap, Refills: 3, Pharmacy: [facility]/pharmacy #[id number] Start Date: 10/03/17 Stop Date: 01/31/18 Status: Ordered fluticasone 50 mcg/inh nasal spray See Instructions, Disp# 16 mL, Refills: 5, INHALE 2 SPRAY IN EACH NOSTRIL DAILY, Pharmacy: [id number] Start Date: 02/26/21 Status: Ordered furosemide 40 mg oral tablet Start: 08/05/23 9:41:00 AM EST, 1 tab, PO, Daily, Disp# 90 tab, Refills: 3, Pharmacy: [facility] [id number] Start Date: 08/05/23 Status: Ordered Insulin Aspart FlexPen 100 units/mL injectable solution Start: 12/08/23 4:02:00 PM EDT, See Instructions, Disp# 15 mL, Refills: 3, INJECT 1 UNIT FOR EVERY 5CARBS WITH MEALS, USE 80-100 UNITS DAILY, Pharmacy: [facility] #[id number] Start Date: 12/08/23 Status: Ordered Lantus Solostar Pen 100 units/mL subcutaneous solution Start: 07/08/23 11:29:00 AM EDT, See Instructions, Disp# 15 mL, Refills: 5, INJECT 40 UNITS UNDER THE SKIN DAILY, Pharmacy: [facility] #[id number] Start Date: 07/08/23 Status: Ordered levothyroxine 112 mcg (0.112 mg) oral tablet Start: 02/23/24 1:04:00 PM EDT, See Instructions, Disp# 90 tab, Refills: 3, TAKE 1 TABLET BY MOUTH EVERY DAY, Pharmacy: [facility] #[id number] Start Date: 02/23/24 Status: Ordered Linzess 145 mcg oral capsule Start: 08/30/19 9:06:00 AM EST, See Instructions, Disp# 30 cap, Refills: 5, TAKE 1 CAPSULE IN THE MORNING (CAN FILL 04/30), Pharmacy: [facility] #[id number] Start Date: 08/30/19 Status: Ordered lisinopril 10 mg oral tablet Start: 07/01/23 10:02:00 AM EDT, 1 tab, PO, Daily, Disp# 90 tab, Refills: 3, Pharmacy: [facility] [id number] Start Date: 07/01/23 Status: Ordered loratadine 10 mg oral tablet Start: 03/23/23 9:37:00 AM EDT, See Instructions, Disp# 90 tab, Refills: 4, TAKE 1 TABLET BY MOUTH EVERY DAY, Pharmacy: [facility] #[id number] Start Date: 03/23/23 Status: Ordered meclizine 25 mg oral tablet Start: 4/17/23 4:24:00 PM EDT, 1 tab, PO, tid, PRN: as needed for dizziness Start Date: 01/06/23 Status: Ordered metoclopramide 5 mg oral tablet Start: 02/23/24 2:17:00 PM EDT, 1 tab, PO, q6h, Disp# 120 tab, Refills: 0, NOT to be taken with Promethazine. Patient aware., Pharmacy: [facility] #[id number] Start Date: 02/23/24 Stop Date: 03/24/24 Status: Ordered Metoprolol Tartrate 50 mg oral tablet Start: 10/27/23 9:35:00 AM EST, 1 tab, PO, bid, Disp# 180 tab, Refills: 3, Pharmacy: [facility] [id number] Start Date: 10/27/23 Status: Ordered nystatin 100,000 units/g topical cream Start: 08/25/23 2:15:00 PM EST, See Instructions, Disp# 30 g, Refills: 0, APPLY A THIN FILM BENEATH BREASTS & ABDOMINAL FOLDS, Pharmacy: [facility] #[id number] Start Date: 08/25/23 Status: Ordered omeprazole 40 mg oral delayed release capsule See Instructions, Disp# 30 cap, Refills: 5, TAKE 1 CAPSULE twice daily, Pharmacy: [facility] [id number] Start Date: 01/07/21 Status: Ordered ONE TOUCH DELICA 33G LANCETS ONE TOUCH DELICA 33G LANCETS, See Instructions, Disp# 100 unknown unit, Refills: 5, USE TO TEST 4 TIMES A DAY NEEDED, Pharmacy [id number] Start Date: 12/07/21 Status: Ordered One Touch Delica Plus (33G) Lancets Start: 05/09/20 8:09:00 AM EDT, See Instructions, Disp# 100 each, Refills: 0, test 4 times daily PRN, Pharmacy: [facility] #[id number] Start Date: 05/09/20 Status: Ordered One Touch Ultra 2 Glucose Monitor Start: 05/09/20 8:09:00 AM EDT, See Instructions, Disp# 1 each, Refills: 0, Test 4 times daily PRN, Pharmacy: [email or web address] #[id number] Start Date: 05/09/20 Status: Ordered One Touch Ultra Blue Test Strips Start: 02/23/24 1:04:00 PM EDT, See Instructions, Disp# 100 each, Refills: 3, Use to test 4 times daily as needed, Note to Pharmacy: E11.9, [id number] Start Date: 02/23/24 Status: Ordered ONE TOUCH ULTRA BLUE TEST STRP Start: 04/10/22 4:29:00 PM EDT, ONE TOUCH ULTRA BLUE TEST STRP, See Instructions, Disp# 100 strip, Refills: 3, USE TO TEST 4 TIMES A DAY NEEDED, Pharmacy [id number] Start Date: 04/10/22 Status: Ordered ONE TOUCH ULTRA BLUE TEST STRP ONE TOUCH ULTRA BLUE TEST STRP, See Instructions, Disp# 100 strip, Refills: 3, USE TO TEST 4 TIMES A DAY NEEDED, Pharmacy [id number] Start Date: 12/31/21 Status: Ordered ONE TOUCH ULTRA BLUE TEST STRP Start: 07/22/22 9:01:00 PM EDT, ONE TOUCH ULTRA BLUE TEST STRP, See Instructions, Disp# 100 strip, Refills: 3, USE TO TEST 4 TIMES A DAY NEEDED, Pharmacy [id number] Start Date: 07/22/22 Status: Ordered ONETOUCH ULTRA TEST STRIP USE TO TEST 4 TIMES A DAY NEEDED Start Date: 11/15/22 Status: Ordered promethazine 12.5 mg oral tablet Start: 01/01/23 12:13:00 PM EDT, See Instructions, Disp# 16 tab, Refills: 1, TAKE 1 TABLET BY MOUTH EVERY 6 HOURS NEEDED FOR NAUSEA/VOMITING, Pharmacy: [facility] #[id number] Start Date: 01/01/23 Status: Ordered rosuvastatin 40 mg oral tablet Start: 02/23/24 1:04:00 PM EDT, 1 tab, PO, Daily, Disp# 30 tab, Refills: 3, [id number] Start Date: 02/23/24 Stop Date: 06/22/24 Status: Ordered Slow-Mag 71.5 mg-119 mg oral delayed release tablet Start: 01/16/23 3:05:00 PM EDT, 2 tab, PO, bid, Disp# 180 tab, Refills: 3, Pharmacy: [facility] #[id number] Start Date: 01/16/23 Status: Ordered venlafaxine 37.5 mg oral capsule, extended release Start: 02/24/24 10:09:00 AM EDT, 1 cap, PO, Daily, Disp# 90 cap, Refills: 3, take with 75mg capsule for total of 112.5mg daily do not crush or chew, [id number] Start Date: 02/24/24 Status: Ordered venlafaxine 75 mg oral capsule, extended release Start: 04/28/23 3:56:00 PM EDT, 1 cap, PO, Daily, Disp# 90 cap, Refills: 3, do not crush or chew, [id number] Start Date: 04/28/23 Status: Ordered Vitamin C Start: 12/10/16 1:19:00 PM EDT, 500 mg =, PO, Daily Start Date: 12/10/16 Status: Ordered Vitamin D3 10,000 intl units (250 mcg) oral capsule Start: 07/08/23 11:24:00 AM EDT, 1 cap, PO, Daily, Disp# 30 cap, Refills: 3, [id number] Start Date: 07/08/23 Stop Date: 11/05/23 Status: Ordered Mental Status 03/17/24 Barriers to Learning one year None evide nt Mandatory Health Literacy Documentation Yes Health Literacy Communication Barriers N ever Primary Language Taiwanese Problem List Condition Confirmation Course Effective Dates [...] to DM Confirmed Active GERD Confirmed Active HTN (hypertension) Confirmed Active Hypothyroidism Confirmed 01/18/09 Active Right lumbar radiculopathy Confirmed Active Mild mitral regurgitation Confirmed Active MIXED HYPERLIPIDEMIA Confirmed Active Paresthesia of saddle area Confirmed Active PTSD (post-traumatic stress disorder) Confirmed Active Protruded lumbar disc Confirmed Active Prolonged QT interval Confirmed Active Tenosynovitis of thumb Confirmed Active Cubital tunnel syndrome Confirmed Active Incontinent of urine Confirmed Active Vocal cord nodule Confirmed Active Diagnosis Diagnosis Type Effective Dates Health Status Cl inical Service Informant Right knee pain Discharge Diagnosis 03/17/24 Non-Specified Right leg pain Discharge Diagnosis 03/17/24 Non-Specified Procedures Procedure Date Related Diagnosis Body [...] 39 12/13/17 Completed Hand X-ray left 40 3/22/18 Comple [facility]eca EMG finding 41 10/23/17 Completed [...] Surgery 2003 Completed excision of nodule 09/22/[facility] Blood transfusion Complet ed bone spur [...] compared to prior exam. 47wnl/repeat 1 yr 17K6-I8 No significant central canal or neural foraminal narrowing. L3-L4 Small broad-based posteriordisc buldge asymmetric to the right resulting in mild bilateral neural foraminal narrowinng. No significant central canal narrowing. 69N0-X2 Small broad-based posterior disc bulde without significant [...] Status Never smoked cigaret anthony Sex Female Ortho Outpt Note * MD Welch Jesse: MODIFY MD Welch Jesse: MODIFY, MODIFY, MODIFY Event Display: Ortho Outpt Note Authored Date: Name:LEANN LAZAR Patient Number:[id number] :1965 Date of Service:03/17/2024 CHIEF COMPLAINT: Right Leg Pain HPI: 58 year old female here for bilateral leg pain, right > left. She has a longstanding history of L4-F5hcmkp arthrosis andlumbar radiculopathy. She is coming in for complaint ofrightcalf painand swellingalthough she experiences symptoms on the left side as well. She recentlyhadan ultrasound Doppler about a month ago which was negative for deep vein thrombosis. She feels like today her legs are nonswollen. She feels a cramping sensation andtightness in herposterior calf as well as her gluteal muscles ever since her fall over 3 years ago. She just had an L4-L5 facet blockbilaterally done with Dr. Vásquez improved her back pain. PHYSICAL EXAM: General: well appearing MSK exam of SANDRINE Negative seated leg raise b/l L4 L5-S1 dermatomes distally intact 5 out of 5 strength with EHL plantarflexion dorsiflexion knee extension knee flexion Some hypertonicity palpated in the bilateral calves rightgreater than left RADIOGRAPHY: US RIGHT SANDRINE: negative for DVT IMPRESSION: Differential includesspinal stenosis lumbarlumbar radiculopathy,peripheral nerve entrapment PLAN: -will send patient for EMG to rule out peripheral nerve entrapment -will send patient for physical therapy ATTESTATION: ATTENDING PHYSICIAN ATTESTATION: I was present with fellow during maradiaga portions of the history and physical exam. I discussed the case with and agree with the findings and plan, as documented in the fellow's note. - Dr.Jesse Welch, [facility] Electronic Signature on File Electronically Reviewed/Signed by: Jhonny Grimes DO Author Signature Dt/Tm:03/17/2024 11:57 AM Resident Division of Sports Medicine Electronically Reviewed/Signed by: Jerrod Welch M.D. Cosigner Signature Dt/Tm: 03/19/2024 09:13 AM Division of Sports Medicine RP Patient Care team information Care Team Personnel Name: MD Okeefe Jonathan D Position: Physician - Family Med Member Role: Lifetime Relationship Address: Address: [address] [place] [address] [place] Name: MD Grover Dongsheng Position: Physician - Family Med Member Role: Lifetime Relationship Address: Address: [address] [place] [address] [place] Name: DO Clark Alonna Paige Position: Resident Member Role: Primary Care Provider Address: Address: [address] [place] [address] [place] [address] Care Team Related Persons Name: ANDREA LAZAR Address: home [address] [place] [phone]
--- OUTSIDE RECORDS SUMMARY | 2024-06-10 09:12 | External Medical Summary | Continuity of Care Document ---
Author Name Unknown Organization [address] [place] [id number] Care Team Providers Care Teacher Citizenship Name Role Phone Kassy Clark Primary Care Physician [phone] Encounter [facility] FINNBR [id number] Date(s): 04/12/24 - 04/12/24 [facility] [address] [place] [address] [phone] Encounter Diagnosis Nail avulsion of toe(Discharge Diagnosis) - 04/12/24 Discharge Disposition: Home or Self Care Attending Physician: MD Jocelyn, Roxana Henderson Allergies, Adverse Reactions, Alerts Substance Criticality Severity Reaction Reaction Severity Status codeine Unable to assess criticality Severe Anaphylaxis Resolved sulfa drugs Rash Active erythromycin rash Active methylPREDNISolone Unable to assess criticality Moderate Rash Active predniSONE rash Active gabapentin unknown Active homatropine-hydrocodone swel ling in airway & face, unable to breath anaphylatic shock Active HYDROmorphone Unable to assess criticality Moderate [...] TEST 4 TIMES A DAY NEEDED, [id number] USE TO TEST 4 TIMES A DAY NEEDED Start Date: 12/16/18 Status: Ordered Albuterol (Eqv-ProAir HFA) 90 mcg/inh inhalation aerosol Start: 04/21/23 5:59:00 PM EDT, See Instructions, Disp# 8.5 each, Refills: 5, INHALE 2 PUFFS 4 TIMESDAILY NEEDED FOR WHEEZING, [id number] Start Date: 04/21/23 Status: Ordered BD needle Ultra-Fine III Short Pen 31G x 8 mm Start: 11/06/23 3:11:00 PM EST, See Instructions, Disp# 100 pen_needle, Use as instructed with insulin pen, Pharmacy: [facility] #[id number] Start Date: 11/06/23 Status: Ordered clonazePAM 1 mg oral tablet Start: 01/27/24 3:50:00 PM EDT, 0.5-1 tab, PO, tid, Disp# 70 tab, Refills: 0, PRN: Anxiety, Pharmacy[facility] #[id number] Start Date: 01/27/24 Stop Date: 02/26/24 Status: Ordered clonazePAM 1 mg oral tablet Start: 03/30/24 11:28:00 AM EDT, See Instructions, Disp# 90 tab, Refills: 0, 1 tab PO 1/2 to 1 tab TID for anxiety, Pharmacy: [facility]/pharmacy #[id number] Start Date: 03/30/24 Status: Ordered Culturee Digestive Health oral capsule Start: 10/03/17 2:26:00 PM EST, 1 cap, PO, Daily, Disp# 30 cap, Refills: 3, [id number] Start Date: 10/03/17 Stop Date: 01/31/18 Status: Ordered fluticasone 50 mcg/inh nasal spray See Instructions, Disp# 16 mL, Refills: 5, INHALE 2 SPRAY IN EACH NOSTRIL DAILY, Pharmacy: [id number] Start Date: 02/26/21 Status: Ordered furosemide 40 mg oral tablet Start: 08/05/23 9:41:00 AM EST, 1 tab, PO, Daily, Disp# 90 tab, Refills: 3, Pharmacy: [id number] Start Date: 08/05/23 Status: Ordered Insulin Aspart FlexPen 100 units/mL injectable solution Start: 12/08/23 4:02:00 PM EDT, See Instructions, Disp# 15 mL, Refills: 3, INJECT 1 UNIT FOR EVERY 5CARBS WITH MEALS, USE 80-100 UNITS DAILY, [id number] Start Date: 12/08/23 Status: Ordered Lantus Solostar Pen 100 units/mL subcutaneous solution Start: 07/08/23 11:29:00 AM EDT, See Instructions, Disp# 15 mL, Refills: 5, INJECT 40 UNITS UNDER THE SKIN DAILY, [id number] Start Date: 07/08/23 Status: Ordered levothyroxine 112 mcg (0.112 mg) oral tablet Start: 02/23/24 1:04:00 PM EDT, See Instructions, Disp# 90 tab, Refills: 3, TAKE 1 TABLET BY MOUTH EVERY DAY, [id number] Start Date: 02/23/24 Status: Ordered Linzess 145 mcg oral capsule Start: 08/30/19 9:06:00 AM EST, See Instructions, Disp# 30 cap, Refills: 5, TAKE 1 CAPSULE IN THE MORNING (CAN FILL 04/30), [id number] Start Date: 08/30/19 Status: Ordered lisinopril 10 mg oral tablet Start: 07/01/23 10:02:00 AM EDT, 1 tab, PO, Daily, Disp# 90 tab, Refills: 3, Pharmacy: [facility] [id number] Start Date: 07/01/23 Status: Ordered loratadine 10 mg oral tablet Start: 03/23/23 9:37:00 AM EDT, See Instructions, Disp# 90 tab, Refills: 4, TAKE 1 TABLET BY MOUTH EVERY DAY, [id number] Start Date: 03/23/23 Status: Ordered meclizine 25 mg oral tablet Start: 01/06/23 4:24:00 PM EDT, 1 tab, PO, tid, PRN: as needed for dizziness Start Date: 01/06/23 Status: Ordered metoclopramide 5 mg oral tablet Start: 02/23/24 2:17:00 PM EDT, 1 tab, PO, q6h, Disp# 120 tab, Refills: 0, NOT to be taken with Promethazine. Patient aware., [id number] Start Date: 02/23/24 Stop Date: 03/24/24 Status: Ordered metoprolol succinate 25 mg oral tablet, extended release Start: 03/24/24 11:38:00 AM EDT, 1 tab, PO, Daily, Disp# 90 tab, Refills: 3, [id number] Start Date: 03/24/24 Status: Ordered metoprolol succinate 25 mg oral tablet, extended release Start: 03/30/24 8:52:00 AM EDT, 1 tab, PO, Daily, Disp# 90 tab, Refills: 3, [id number] Start Date: 03/30/24 Status: Ordered nystatin 100,000 units/g topical cream Start: 08/25/23 2:15:00 PM EST, See Instructions, Disp# 30 g, Refills: 0, APPLY A THIN FILM BENEATH BREASTS & ABDOMINAL FOLDS, [id number] Start Date: 08/25/23 Status: Ordered omeprazole 40 mg oral delayed release capsule See Instructions, Disp# 30 cap, Refills: 5, TAKE 1 CAPSULE twice daily, Pharmacy: [id number] Start Date: 01/07/21 Status: Ordered ONE TOUCH DELICA 33G LANCETS ONE TOUCH DELICA 33G LANCETS, See Instructions, Disp# 100 unknown unit, Refills: 5, USE TO TEST 4 TIMES A DAY NEEDED, [facility]acy [id number] Start Date: 12/07/21 Status: Ordered One Touch Delica Plus (33G) Lancets Start: 05/09/20 8:09:00 AM EDT, See Instructions, Disp# 100 each, Refills: 0, test 4 times daily PRN, [id number] Start Date: 05/09/20 Status: Ordered One Touch Ultra 2 Glucose Monitor Start: 05/09/20 8:09:00 AM EDT, See Instructions, Disp# 1 each, Refills: 0, Test 4 times daily PRN, Pharmacy: [facility] #[id number] Start Date: 05/09/20 Status: Ordered One Touch Ultra Blue Test Strips Start: 02/23/24 1:04:00 PM EDT, See Instructions, Disp# 100 each, Refills: 3, Use to test 4 times daily as needed, Note to Pharmacy: E11.9, Pharmacy: [facility] #[id number] Start Date: 02/23/24 Status: Ordered ONE TOUCH ULTRA BLUE TEST STRP Start: 04/10/22 4:29:00 PM EDT, ONE TOUCH ULTRA BLUE TEST STRP, See Instructions, Disp# 100 strip, Refills: 3, USE TO TEST 4 TIMES A DAY NEEDED, Pharmacy [id number] Start Date: 04/10/22 Status: Ordered ONE TOUCH ULTRA BLUE TEST STRP ONE TOUCH ULTRA BLUE TEST STRP, See Instructions, Disp# 100 strip, Refills: 3, USE TO TEST 4 TIMES A DAY NEEDED, Pharmacy [id number] Start Date: 12/31/21 Status: Ordered ONE TOUCH ULTRA BLUE TEST STRP Start: 07/22/22 9:01:00 PM EDT, ONE TOUCH ULTRA BLUE TEST STRP, See Instructions, Disp# 100 strip, Refills: 3, USE TO TEST 4 TIMES A DAY NEEDED, Pharmacy [id number] Start Date: 07/22/22 Status: Ordered ONETOUCH ULTRA TEST STRIP USE TO TEST 4 TIMES A DAY NEEDED Start Date: 11/15/22 Status: Ordered promethazine 12.5 mg oral tablet Start: 01/01/23 12:13:00 PM EDT, See Instructions, Disp# 16 tab, Refills: 1, TAKE 1 TABLET BY MOUTH EVERY 6 HOURS NEEDED FOR NAUSEA/VOMITING, [id number] Start Date: 01/01/23 Status: Ordered rosuvastatin 40 mg oral tablet Start: 02/23/24 1:04:00 PM EDT, 1 tab, PO, Daily, Disp# 30 tab, Refills: 3, [id number] Start Date: 02/23/24 Stop Date: 06/22/24 Status: Ordered Slow-Mag 71.5 mg-119 mg oral delayed release tablet Start: 01/16/23 3:05:00 PM EDT, 2 tab, PO, bid, Disp# 180 tab, Refills: 3, [id number] Start Date: 01/16/23 Status: Ordered venlafaxine 37.5 mg oral capsule, extended release Start: 02/24/24 10:09:00 AM EDT, 1 cap, PO, Daily, Disp# 90 cap, Refills: 3, take with 75mg capsule for total of 112.5mg daily do not crush or chew, [id number] Start Date: 02/24/24 Status: Ordered venlafaxine 75 mg oral capsule, extended release Start: 04/28/23 3:56:00 PM EDT, 1 cap, PO, Daily, Disp# 90 cap, Refills: 3, do not crush or chew, [id number] Start Date: 04/28/23 Status: Ordered Vitamin C Start: 12/10/16 1:19:00 PM EDT, 500 mg =, PO, Daily Start Date: 12/10/16 Status: Ordered Vitamin D3 10,000 intl units (250 mcg) oral capsule Start: 07/08/23 11:24:00 AM EDT, 1 cap, PO, Daily, Disp# 30 cap, Refills: 3, [id number] Start Date: 07/08/23 Stop Date: 11/05/23 Status: Ordered Mental Status 04/12/24 Barriers to Learning one year None evide nt Mandatory Health Literacy Documentation Yes Health Literacy Communication Barriers N ever Primary Language Cameroonian Problem List Condition Confirmation Course Effective Dates [...] compared to prior exam. 47wnl/repeat 1 yr 74B6-U2 No significant central canal or neural foraminal narrowing. L3-L4 Small broad-based posteriordisc buldge asymmetric to the right resulting in mild bilateral neural foraminal narrowinng. No significant central canal narrowing. 40Y5-B7 Small broad-based posterior disc bulde without significant [...] Family Med Member Role: Lifetime Relationship Address: [address] [place] [address] [place] Name: MD Reilly, Mary Position: Physician - Family Med Member Role: Lifetime Relationship Address: [address] [place] [address] [place] Name: DO Clark Alonna Paige Position: Resident Member Role: Primary Care Provider Address: [address] [place] [address] Care Team Related Persons Name: ANDREA LAZAR
--- OUTSIDE RECORDS SUMMARY | 2024-06-10 09:12 | External Medical Summary | Continuity of Care Document ---
Author Name Unknown Organization [facility] [address] [facility] Address [address] [place], [place] [id number] Care Team Providers Care Composition Worker Name Role Phone Kassy Clark Primary Care Physician [phone] [id number] Date(s): 03/24/24 - 03/24/24 [facility] [address], [address] [place] [address] [phone] Encounter Diagnosis HTN (hypertension)(Discharge Diagnosis) - 03/24/24 Prolonged QT interval(Discharge Diagnosis) - 03/24/24 MARSHA on CPAP(Discharge Diagnosis) - 03/24/24 Hyperlipidemia(Discharge Diagnosis) - 03/24/24 Discharge Disposition: Home or Self Care Attending Physician: DO Stout Jason D Allergies, Adverse Reactions, Alerts Substance Criticality Severity Reaction Reaction Severity Status codeine Unable to assess criticality Severe Anaphylaxis Resolved methylPREDNISolone Unable to assess criticality Moderate Rash Active predniSONE rash Active gabapentin unknown Active homatropine-hydrocodone swel ling in airway & face, unable to breath anaphylatic shock Active sulfa drugs Rash Active HYDROmorphone Unable to assess criticality Moderate Confusion Active metFORMIN muscle aches, fatigue Active lamoTRIgine Rash Active erythromycin rash Active Assessment and Plan Extracted from: Title:Cardiology Office Visit Note Author:DO Stout Jason D Date:03/24/24 1.HTN (hypertension) 2.Prolonged QT interval 3.MARSHA on CPAP 4.Hyperlipidemia Her blood pressure is very well-controlled. I discussed that I would stay on 25 mg of Toprol and give her a prescription for this. Will check an EKG today to make sure that her QTc is appropriate on the lower dose of beta-blockers. She is tolerating CPAP and feels dramatically better. Additionally her fatigue is dramatically better. Her lipids have also improved significantly. Her triglycerides are down about 150 points. Her HDL is dramatically better. Her LDL is acceptable. I congratulated her on using her CPAP and being compliant. Her QTc is acceptable and not more prolonged on her lower dose of beta-perico. She will see Yulia in 1 years time. Immunizations Given and Recorded Vaccine Date Status [...] TEST 4 TIMES A DAY NEEDED, [id number], USE TO TEST 4 TIMES A DAY NEEDED Start Date: 12/16/18 Status: Ordered Albuterol (Eqv-ProAir HFA) 90 mcg/inh inhalation aerosol Start: 04/21/23 5:59:00 PM EDT, See Instructions, Disp# 8.5 each, Refills: 5, INHALE 2 PUFFS 4 TIMESDAILY NEEDED FOR WHEEZING, [id number] Start Date: 04/21/23 Status: Ordered BD needle Ultra-Fine III Short Pen 31G x 8 mm Start: 11/06/23 3:11:00 PM EST, See Instructions, Disp# 100 pen_needle, Use as instructed with insulin pen, [id number] Start Date: 11/06/23 Status: Ordered clonazePAM 1 mg oral tablet Start: 01/27/24 3:50:00 PM EDT, 0.5-1 tab, PO, tid, Disp# 70 tab, Refills: 0, PRN: Anxiety, [id number] Start Date: 01/27/24 Stop Date: 02/26/24 Status: Ordered [facility] oral capsule Start: 10/03/17 2:26:00 PM EST, 1 cap, PO, Daily, Disp# 30 cap, Refills: 3, [id number] Start Date: 10/03/17 Stop Date: 01/31/18 Status: Ordered fluticasone 50 mcg/inh nasal spray See Instructions, Disp# 16 mL, Refills: 5, INHALE 2 SPRAY IN EACH NOSTRIL DAILY, Pharmacy: [facility] [id number] Start Date: 02/26/21 Status: Ordered furosemide 40 mg oral tablet Start: 08/05/23 9:41:00 AM EST, 1 tab, PO, Daily, Disp# 90 tab, Refills: 3, Pharmacy: [facility] [id number] Start Date: 08/05/23 Status: Ordered Insulin Aspart FlexPen 100 units/mL injectable solution Start: 12/08/23 4:02:00 PM EDT, See Instructions, Disp# 15 mL, Refills: 3, INJECT 1 UNIT FOR EVERY 5CARBS WITH MEALS, USE 80-100 UNITS DAILY, [id number] Start Date: 12/08/23 Status: Ordered Lantus Solostar Pen 100 units/mL subcutaneous solution Start: 07/08/23 11:29:00 AM EDT, See Instructions, Disp# 15 mL, Refills: 5, INJECT 40 UNITS UNDER THE SKIN DAILY, [id number] Start Date: 07/08/23 Status: Ordered levothyroxine 112 mcg (0.112 mg) oral tablet Start: 02/23/24 1:04:00 PM EDT, See Instructions, Disp# 90 tab, Refills: 3, TAKE 1 TABLET BY MOUTH EVERY DAY, Pharmacy: [facility] #[id number] Start Date: 02/23/24 Status: Ordered Linzess 145 mcg oral capsule Start: 08/30/19 9:06:00 AM EST, See Instructions, Disp# 30 cap, Refills: 5, TAKE 1 CAPSULE IN THE MORNING (CAN FILL 04/30), Pharmacy: [facility] #[id number] Start Date: 08/30/19 Status: Ordered lisinopril 10 mg oral tablet Start: 07/01/23 10:02:00 AM EDT, 1 tab, PO, Daily, Disp# 90 tab, Refills: 3, Pharm[facility]: [id number] Start Date: 07/01/23 Status: Ordered loratadine 10 mg oral tablet Start: 03/23/23 9:37:00 AM EDT, See Instructions, Disp# 90 tab, Refills: 4, TAKE 1 TABLET BY MOUTH EVERY DAY, Pharmacy: [facility] #[id number] Start Date: 03/23/23 Status: Ordered meclizine 25 mg oral tablet Start: 01/06/23 4:24:00 PM EDT, 1 tab, PO, tid, PRN: as needed for dizziness Start Date: 01/06/23 Status: Ordered metoclopramide 5 mg oral tablet Start: 02/23/24 2:17:00 PM EDT, 1 tab, PO, q6h, Disp# 120 tab, Refills: 0, NOT to be taken with Promethazine. Patient aware., Pharmacy: [facility] #[id number] Start Date: 02/23/24 Stop Date: 03/24/24 Status: Ordered metoprolol succinate 25 mg oral tablet, extended release Start: 03/24/24 11:38:00 AM EDT, 1 tab, PO, Daily, Disp# 90 tab, Refills: 3, Pharmacy: [facility] #[id number] Start Date: 03/24/24 Status: Ordered nystatin 100,000 units/g topical cream Start: 08/25/23 2:15:00 PM EST, See Instructions, Disp# 30 g, Refills: 0, APPLY A THIN FILM BENEATH BREASTS & ABDOMINAL FOLDS, Pharmacy: [facility] #[id number] Start Date: 08/25/23 Status: Ordered omeprazole 40 mg oral delayed release capsule See Instructions, Disp# 30 cap, Refills: 5, TAKE 1 CAPSULE twice daily, Pharmacy: [id number] Start Date: 01/07/21 Status: Ordered ONE TOUCH DELICA 33G LANCETS ONE TOUCH DELICA 33G LANCETS, See Instructions, Disp# 100 unknown unit, Refills: 5, USE TO TEST 4 TIMES A DAY NEEDED, Pharmacy [id number] Start Date: 12/07/21 Status: Ordered One Touch Delica Plus (33G) Lancets Start: 05/09/20 8:09:00 AM EDT, See Instructions, Disp# 100 each, Refills: 0, test 4 times daily PRN, Pharmacy: [facility] #[id number] Start Date: 05/09/20 Status: Ordered One Touch Ultra 2 Glucose Monitor Start: 05/09/20 8:09:00 AM EDT, See Instructions, Disp# 1 each, Refills: 0, Test 4 times daily PRN, Pharmacy: [facility] #[id number] Start Date: 05/09/20 Status: Ordered One Touch Ultra Blue Test Strips Start: 02/23/24 1:04:00 PM EDT, See Instructions, Disp# 100 each, Refills: 3, Use to test 4 times daily as needed, Note to Pharmacy: E11.9, Pharmacy: [facility] #[id number] Start Date: 02/23/24 Status: Ordered ONE TOUCH ULTRA BLUE TEST STRP Start: 04/10/22 4:29:00 PM EDT, ONE TOUCH ULTRA BLUE TEST STRP, See Instructions, Disp# 100 strip, Refills: 3, USE TO TEST 4 TIMES A DAY NEEDED, Pharmacy [facility] [id number] Start Date: 04/10/22 Status: Ordered ONE TOUCH ULTRA BLUE TEST STRP ONE TOUCH ULTRA BLUE TEST STRP, See Instructions, Disp# 100 strip, Refills: 3, USE TO TEST 4 TIMES A DAY NEEDED, Pharmacy [facility] [id number] Start Date: 12/31/21 Status: Ordered ONE TOUCH ULTRA BLUE TEST STRP Start: 07/22/22 9:01:00 PM EDT, ONE TOUCH ULTRA BLUE TEST STRP, See Instructions, Disp# 100 strip, Refills: 3, USE TO TEST 4 TIMES A DAY NEEDED, Pharmacy [id number] Start Date: 07/22/22 Status: Ordered ONETOUCH ULTRA TEST STRIP USE TO TEST 4 TIMES A DAY NEEDED Start Date: 11/15/22 Status: Ordered promethazine 12.5 mg oral tablet Start: 01/01/23 12:13:00 PM EDT, See Instructions, Disp# 16 tab, Refills: 1, TAKE 1 TABLET BY MOUTH EVERY 6 HOURS NEEDED FOR NAUSEA/VOMITING, [id number] Start Date: 01/01/23 Status: Ordered rosuvastatin 40 mg oral tablet Start: 02/23/24 1:04:00 PM EDT, 1 tab, PO, Daily, Disp# 30 tab, Refills: 3, Pharmacy: [facility] #[id number] Start Date: 02/23/24 Stop Date: 06/22/24 Status: Ordered Slow-Mag 71.5 mg-119 mg oral delayed release tablet Start: 01/16/23 3:05:00 PM EDT, 2 tab, PO, bid, Disp# 180 tab, Refills: 3, Pharmacy: [facility] #[id number] Start Date: 01/16/23 Status: Ordered venlafaxine 37.5 mg oral capsule, extended release Start: 02/24/24 10:09:00 AM EDT, 1 cap, PO, Daily, Disp# 90 cap, Refills: 3, take with 75mg capsule for total of 112.5mg daily do not crush or chew, [id number] Start Date: 02/24/24 Status: Ordered venlafaxine 75 mg oral capsule, extended release Start: 04/28/23 3:56:00 PM EDT, 1 cap, PO, Daily, Disp# 90 cap, Refills: 3, do not crush or chew, Pharmacy: [facility] #[id number] Start Date: 04/28/23 Status: Ordered Vitamin C Start: 12/10/16 1:19:00 PM EDT, 500 mg =, PO, Daily Start Date: 12/10/16 Status: Ordered Vitamin D3 10,000 intl units (250 mcg) oral capsule Start: 07/08/23 11:24:00 AM EDT, 1 cap, PO, Daily, Disp# 30 cap, Refills: 3, [id number] Start Date: 07/08/23 Stop Date: 11/05/23 Status: Ordered Mental Status 03/24/24 Barriers to Learning one year None evide nt Mandatory Health Literacy Documentation Yes Health Literacy Communication Barriers N ever Primary Language German Problem List Condition Confirmation Course Effective Dates [...] Effective Dates Health Status Clinical Service Informant HTN (hypertension) Discharge Diagnosis 03/24/24 Prolonged QT interval Discharge Diagnosis 03/24/24 MARSHA on CPAP Discharge Diagnosis 03/24/24 Hyperlipidemia Discharge Diagnosis 03/24/24 Procedures Procedure Date Related Diagnosis Body Site [...] compared to prior exam. 47wnl/repeat 1 yr 90U1-P4 No significant central canal or neural foraminal narrowing. L3-L4 Small broad-based posteriordisc buldge asymmetric to the right resulting in mild bilateral neural foraminal narrowinng. No significant central canal narrowing. 16J1-T4 Small broad-based posterior disc bulde without significant [...] Most recent to oldest [Reference Range]: 1 Patient Weight 114 kg (03/24/24 11:24 AM) Heart Rate 65 bpm (03/24/24 11:24 AM) Respiratory Rate 18 br/min (03/24/24 11:24 AM) Blood Pressure 118/68mmHg (03/24/24 11:24 AM) BP Location # 1 Left Arm (03/24/24 11:24 AM) Social History Social History Type Response Smoking Status Never smoked cigaret anthony Sex Female Cardiology * Contributor_system, MUSE01: VERIFY, PERFORM Event Display: EKG Authored Date: Please click on link to see image. Cardiology Outpatient Note * DO Stout Jason D: PERFORM Event Display: Cardiology Outpt Note Authored Date: Primary Care Provider DO Clark Alonna Paige Chief Complaint Palpitations about 1 week Denies chest pressure, denies heart racing, dizziness or lightheadedness no SOB . ER visits for right leg edema- cpap every night History of Present Illness She denies any chest pain or chest pressure. She has no significant shortness of breath. She can walk in the grocery store with a cart any dyspnea. He has no lightheadedness or dizziness. Sheis bothered by leg discomfort in her calf that radiates from her knee. She has had an ultrasound which suggested Fontanez's cyst. She is wearing CPAP on a regular basis and notes she feels better with less fatigue and more energyand is sleeping much better at night. Her blood pressure is well-controlled. She notes that she dropped her metoprolol dose from 50 mg to 25 mg and this seems to have improved her lightheadedness as well. Review of Systems PMH: 1. History of prolonged QTc currently on beta blockers. 2. Hypertension. 3. Anxiety, PTSD. 4. Gastroparesis. 5. History of symptomatic PVC and palpitations 6. Negative stress echo for Ischemia without arrhythmias 7. MARSHA on CPAP Physical Exam Vitals & Measurements HR:65(Monitored) RR:18 BP:118/68 SpO2:97% WT:114.000kg(Dosing) WT:114kg PHYSICAL EXAMINATION: She is awake, alert, oriented x3. She is in no acute distress. HEENT: 2+ carotid pulsations, carotid bruits. Lungs: Clear to auscultation bilaterally, no rales, rhonchi, or wheezing. Heart: Regular rate and rhythm, no appreciable murmurs, rubs or gallops. Extremities: No clubbing, cyanosis or edema. Psychiatric:Her affect was much calmer Diagnostic Results 30 Day Labs Last Updated 03/02/24 00:45 03/01/24 1544 Estimated CrCl81.89 03/01/24 1519 Hct39.1 Hgb12.9 MCH28.9 MCHC33.0 MCV87.7 Hwdn950 RBC4.46 WBC6.98 MPV10.5 RDW13.6 Chol/HDL5 Dhhg372 HDL42 LDL Chol, Vksxrsterp596 VO800W Non-HRF136 Anion Gap11 BUN14 Ca9.9 Cl-108H KOS380 Cret0.92 Glu91 K4.4 Na142 eGFR CKD-EPI73 Cortisol2.8 HbA1c6.5H Estimated Average Fvzgzof003 Alk Phos63 ALT31 AST35 T Bili0.8 Alb4.4 Prot8.4H EKG NSR QTc 4 Assessment/Plan 1.HTN (hypertension) 2.Prolonged QT interval 3.MARSHA on CPAP 4.Hyperlipidemia Her blood pressure is very well-controlled. I discussed that I would stay on 25 mg of Toprol and give her a prescription for this. Will check an EKG today to make sure that her QTc is appropriateon the lower dose of beta-blockers. She is tolerating CPAP and feels dramatically better. Additionally her fatigue is dramatically better. Her lipids have also improved significantly. Her triglycerides are down about 150 points. Her HDL is dramatically better. Her LDL is acceptable. I congratulated her on using her CPAP and being compliant. Her QTc is acceptable and not more prolonged on her lower dose of beta-perico. She will see Yulia in 1 years time. Problem List/Past Medical History Ongoing Amenorrhea Anxiety and depression Carpal tunnel syndrome, left Constipation Cubital tunnel syndrome Diabetes DJD (degenerative joint disease) of cervical spine Fatigue Fatty liver Gastroparesis due to DM GERD HTN (hypertension) Hyperlipidemia Hypothyroidism Impingement of right shoulder Incontinent of urine Lower extremity edema Lumbar facet arthropathy Mild mitral regurgitation MIXED HYPERLIPIDEMIA MARSHA on CPAP Paresthesia of saddle area Prolonged QT interval Protruded lumbar disc PTSD (post-traumatic stress disorder) Right lumbar radiculopathy Rotator cuff syndrome Tenosynovitis of thumb Vocal cord nodule Resolved ACUTE GASTRITIS, WITHOUT MENTION OF HEMORRHAGE Gastroparesis GI bleeding HBP (high blood pressure) Irregular menses Thyroid disorder Procedure/Surgical History Mammogram - screening| Service Date: 3Doppler ultrasonography of venous structure| Service Date: 01/02/2023T angiography of chest with contrast| Service Date: 01/02/2023hest X-ray| Service Date: 01/02/2023hest X-ray| Service Date: 11/20/2022Rotator cuff arthropathy of right shoulder| Service Date: 11/19/2022T of neck| Service Date: 09/26/2022ecompression of ulnar nerve at elbow| Service Date: 09/03/2022arpal tunnel release| Service Date: 09/03/2022EMG - Electromyography| Service Date: 07/29/2022Upper GI (gastrointestinal) endoscopy| Service Date: 04/02/2022rthroscopic repair of rotator cuff| Service Date: 02/12/2022Injection into facet joint of lumbar spine using fluoroscopic guidance| Service Date: 01/28/2022ECG (electrocardiography) procedure| Service Date: 01/09/2022oppler ultrasonography of veins of bilateral lower extremities| Service Date: 01/09/2022hest x-ray| Service Date: 01/09/2022hest x-ray| Service Date:12/25/2021Ultrasound guided biopsy| Service Date: 12/19/2021Ultrasonography guided biopsy of left breast| Service Date: 12/19/2021olonoscopy| Service Date: 12/18/2021Ultrasound of left breast| Service Date: 12/12/2021Mammogram| Service Date: 12/05/2021Upper GI (gastrointestinal) endoscopy| Service Date: 02/13/2022CT of abdomen and pelvis| Service Date: 11/03/2021X-ray of left foot| Service Date: 05/23/2021T of abdomen with contrast| Service Date: 05/17/2021T of lumbar spine| Service Date: 1Release of trigger thumb| Service Date: 03/22/2021History of orthopedic surgery| Service Date: 03/22/2021T angio of chest| Service Date: 02/16/2020Chest X-ray| Service Date: 02/16/2020Upper GI endoscopy| Service Date: 08/04/2019Mammogram| Service Date: 07/29/2019Chest x-ray| Service Date: 07/04/2019X-ray of abdomen| Service Date: 07/04/2019CT of abdomen and pelvis| Service Date: 07/04/2019Appendectomy| Service Date: 04/06/2019CT of abdomen| Service Date: 04/06/2019CT of head and Brain wo con| Service Date: 04/06/2019Hand X-ray left| Service Date: 12/13/2017Venous doppler ultrasonography| Service Date: 12/13/2017Hand X-ray left| Service Date: 12/11/2017EMG finding| Service Date: 10/23/2017Chest X-ray| Service Date: 09/03/2017CT of chest| Service Date: 09/03/2017Chest X-ray| Service Date: 09/01/2017Ultrasound- pelvic| Service Date: 06/20/2017CT of abdomen and pelvis| Service Date: 06/15/2017Mammogram| Service Date: 03/26/2017MRI of lumbar spine| Service Date: 02/14/2017CXR - Chest X-ray| Service Date: 02/10/2017Hip X-ray| Service Date: 02/06/2017X-ray of left knee| [facility]06[facility]2017[facility]| [facility]06/2017[facility]| Service Date: 05/30/2016X-ray of abdomen| Service Date: 05/30/2016Abdominal X-ray normal| Service Date: 02/28/2016Nuclear medicine diagnostic procedure| Service Date: 02/28/2016Colonoscopy| Service Date: 02/21/2016Transvaginal ultrasound scan| Service Date: 02/04/2016CT of head| Service Date: 02/04/2016X-ray of abdomen| Service Date: 02/04/2016CT of abdomen and pelvis with contrast| Service Date: 02/04/2016Exercise stress echocardiography| Service Date: 02/04/2016Date of pathology report| Service Date: 01/15/2016Date of last PAP test| Service Date: 03/10/2015Ultrasound scan of lower leg right| Service Date: 01/31/2015HIDA scan| Service Date: 11/25/2014Surgery| Service Date: 2003excision of nodule| Service Date: 09/22/1999bone spur removal - right shoulercesarrean sectionX-ray of right footBlood transfusion Medications albuterol(Albuterol (Eqv-ProAir HFA) 90 mcg/inh inhalation aerosol), See Instructions, 5 refills ascorbic acid(Vitamin C), 500 mg, PO, Daily calcium carbonate-magnesium chloride(Slow-Mag 71.5 mg-119 mg oral delayed release tablet), 2 tab, PO, bid, 3 refills cholecalciferol(Vitamin D3 10,000 intl units (250 mcg) oral capsule), 250 mcg= 1 cap, PO, Daily, 3 refills clonazePAM(clonazePAM 1 mg oral tablet), 0.5-1 tab, PO, tid, PRN diabetes supplies(One Touch Ultra Blue Test Strips), See Instructions, 3 refills diabetes supplies(One Touch Ultra 2 Glucose Monitor), See Instructions diabetes supplies(One Touch Delica Plus (33G) Lancets), See Instructions diabetic supplies(ACCU-CHEK SMARTVIEW TEST STRIP), See Instructions, 5 refills fluticasone nasal(fluticasone 50 mcg/inh nasal spray), See Instructions furosemide(furosemide 40 mg oral tablet), 1 tab, PO, Daily insulin aspart(Insulin Aspart FlexPen 100 units/mL injectable solution), See Instructions, 3 refills insulin glargine(Lantus Solostar Pen 100 units/mL subcutaneous solution), See Instructions, 5 refills lactobacillus rhamnosus GG([facility] oral capsule), 1 cap, PO, Daily, 3 refills levothyroxine(levothyroxine 112 mcg (0.112 mg) oral tablet), See Instructions, 3 refills linaclotide(Linzess 145 mcg oral capsule), See Instructions, 5 refills lisinopril(lisinopril 10 mg oral tablet), 1 tab, PO, Daily loratadine(loratadine 10 mg oral tablet), See Instructions, 4 refills meclizine(meclizine 25 mg oral tablet), 25 mg= 1 tab, PO, tid, PRN metoclopramide(metoclopramide 5 mg oral tablet), 5 mg= 1 tab, PO, q6h metoprolol(metoprolol succinate 25 mg oral tablet, extended release), 25 mg= 1 tab, PO, Daily, 3 refills nystatin topical(nystatin 100,000 units/g topical cream), See Instructions omeprazole(omeprazole 40 mg oral delayed release capsule), See Instructions promethazine(promethazine 12.5 mg oral tablet), See Instructions, 1 refills rosuvastatin(rosuvastatin 40 mg oral tablet), 40 mg= 1 tab, PO, Daily, 3 refills syringe needles(BD needle Ultra-Fine III Short Pen 31G x 8 mm), See Instructions unlisted medication(ONE TOUCH ULTRA BLUE TEST STRP), See Instructions unlisted medication(ONE TOUCH ULTRA BLUE TEST STRP), See Instructions unlisted medication(ONE TOUCH DELICA 33G LANCETS), See Instructions unlisted medication(ONETOUCH ULTRA TEST STRIP) unlisted medication(ONE TOUCH ULTRA BLUE TEST STRP), See Instructions venlafaxine(venlafaxine 37.5 mg oral capsule, extended release), 37.5 mg= 1 cap, PO, Daily, 3 refills venlafaxine(venlafaxine 75 mg oral capsule, extended release), 75 mg= 1 cap, PO, Daily, 3 refills Allergies HYDROmorphone (Moderate)Confusion methylPREDNISolone (Moderate)Rash erythromycinrash gabapentinunknown homatropine-hydrocodoneswelling in airway & face, unable to breath, anaphylatic shock lamoTRIgineRash metFORMINmuscle aches, fatigue predniSONErash sulfa drugsRash Social History Smoking Status Never smoked cigarettes Alcohol Use:Current Type:Wine Frequency:1-2 times per month Employment/School Status:Unemployed Exercise Exercise type:Walking Home/Environment Lives with:Children Substance Abuse - Denies Substance Abuse Tobacco - Denies Tobacco Use Family History Diabetes insipidus: Sister. Heart disease: Father. Stroke: Sister. 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 [facility] [place] [place] [address] JDF Patient Care team information Care Team Personnel Name: MD Maldonado, Uriel Camacho Position: Physician - Family Med Member Role: Lifetime Relationship Address: Address: [address] [place] [id number] [place] Name: MD Grover Dongsheng Position: Physician - Family Med Member Role: Lifetime Relationship Address: Address: [address] [place] [id number] [place] Name: DO Clark Alonna Paige Position: Resident Member Role: Primary Care Provider Address: Address: [address] [place] [id number] [place] Care Team Related Persons Name: ANDREA LAZAR Address: home [address] [facility] DARLENE MUHAMMAD [phone]"
[2024-06-10] MEDS: INSULIN ASPART PER UNIT CHARGE SC SCH (10:19)
[2024-06-10] MEDS: PROMETHAZINE HCL 25 MG TAB PO PRN (10:20)
[2024-06-10] MEDS: LANTUS PER UNIT CHARGE SQ SCH (10:20)
[2024-06-10] MEDS ORDERED: ALPRAZolam 0.5 MG TABLET PO PRN (11:06)
--- NOTE | 2024-06-10 12:35 | XRay Report ---
XR lumbar spine flex/ext only CLINICAL HISTORY: facet hypertrophy L4-5 COMPARISON STUDY: Lumbar spine radiographs February 03, 2024. Lumbar spine MRI June 09, 2024. FINDINGS: Vertebral body heights are maintained. There are no lumbar spine fractures. There is 3 mm a nterolisthesis of L4 on L5 in neutral position. This slightly decreases to 2 mm in extension. There i s 4 mm anterolisthesis during flexion. Otherwise, alignment is anatomic. There is mild multilevel end plate osteophytosis. Moderate to severe multilevel facet arthrosis is present. IMPRESSION: 1. No lumbar spine fractures. 2. Grade I anterolisthesis of L4 and L5 due to facet arthrosis, as described above. This slightly inc reases with flexion and slightly decreases with extension. ACT 112: Negative or not required by law. Electronically signed by: Ok Perez M.D. 06/10/2024 12:34 PM
--- NOTE | 2024-06-10 12:44 | Urology Consultation ---
Date of Consultation June 10, 2024 Assessment & Plan (1) UTI (urinary tract infection): Urinalysis overall suspicious for UTI and urine culture growing gram-negative bacilli. Agree with broad-spectrum antibiotics to start and narrowing coverage as culture data becomes available. She has tried cranberry and d-mannose in the past for UTI prevention. It sounds like she may be a candidate for methenamine, although this would be done as an outpatient after her current infection is treated. (2) Incontinence: She has some urinary incontinence at baseline, but it sounds like this is worse after her acute flareup of back pain. The acute change would raise concern for possible spinal stenosis or cauda equina syndrome, although these do not seem to be present on MRI. I would defer to neurology/spine surgery regarding any need for further intervention regarding the spine. From the urology perspective, would recommend checking PVRs to make sure she is emptying well. As long as she is emptying, she could try an anticholinergic or Vibegron to see if this helps with urgency/urge incontinence, although this could also be deferred to outpatient. Plan No plan for acute urologic intervention at this time. Agree with antibiotics and narrowing coverage as culture data becomes available. Would check PVR to make sure she is emptying well. Urology will coordinate outpatient follow-up -will sign off for now, please call with any questions or concerns History of Present Illness Reason for Consultation: Urinary tract infections, urinary incontinence Attending Physician: Derrick Dunn History of Present Illness This is a 59-year-old female previously followed by urology for pelvic discomfort, urinary tract infections, urinary incontinence. She presented to the emergency department for evaluation of numbness in the pelvis/rectum/vaginal area.. There was no significant trauma, however symptoms developed when she sat down in a rotating chair that was not at the angle that she was expecting. Afterwards, she was also having heavy sensation of her legs, as well as significant lower back pain. Workup in the ED was notable for normal white count (WBC 9 .49). Glucose was somewhat elevated at 272. Creatinine was normal at 1.00. Urinalysis demonstrated positive nitrites, 3+ leukocyte Estrace and 4+ bacteria. Urine culture was sent and final results are still pending. Lumbar MRI was performed which demonstrated no degenerative spinal stenosis although she has a congenitally narrow spinal canal. Report makes note of mild bilateral neural foraminal stenosis with some impingement. No evidence of fracture, infection, tumor or arachnoiditis. At the bedside, she reports ongoing lower back pain. She denies overt fevers or chills. She reports some burning over the bladder which is typical when she has a UTI. This might be getting slightly better since being on antibiotics. She was told at one point that she may have some redundant vaginal tissue which could be contributing to UTIs. In terms of her urinary control, she has decreased sensation. She has had some issues with incontinence since going through childbirth. She describes both leaking with Valsalva/stress incontinence as well as urinary urgency and urge incontinence. She has tried oxybutynin in the past, but is currently off due to side effects. Allergies Allergy/AdvReac Type Severity Reaction Status Date / Time homatropine Allergy Severe Anaphylactic Verified 03/12/24 13:05 Shock hydrocodone Allergy Severe Anaphylactic Verified 03/12/24 13:05 Shock erythromycin base Allergy Intermediate Rash Verified 03/12/24 13:05 methylprednisolone Allergy Intermediate Rash Verified 03/12/24 13:05 ondansetron Allergy Intermediate "Cardiac Verified 03/12/24 13:05 symptoms" Sulfa (Sulfonamide Allergy Intermediate Rash Verified 03/12/24 13:05 Antibiotics) codeine Allergy Unknown listed in Verified 03/12/24 13:05 cardio records gabapentin AdvReac Severe Hallucinati Verified 06/10/24 02:29 ons hydromorphone AdvReac Intermediate Confusion Verified 06/10/24 02:29 Home Medications Medication Instructions Recorded Confirmed Type levothyroxine 112 mcg tablet 112 mcg PO QAM ##0 09/01/17 03/12/24 History venlafaxine 75 mg capsule,extended 75 mg PO QAM 02/16/20 03/12/24 History release 24 hr venlafaxine 37.5 mg tablet 37.5 mg PO QAM 08/24/21 03/12/24 History ibuprofen 200 mg tablet (Advil) 600 mg (3 x 200 mg) PO QID PRN 09/03/22 03/11/24 Rx fever or pain #30 tabs albuterol sulfate 90 mcg/actuation 2 puff inhalation QID PRN Wheezing 01/02/23 03/11/24 History aerosol inhaler fluticasone propionate 100 1 inh inhalation BID 01/02/23 03/12/24 History mcg/actuation blister powder for inhalation (Flovent Diskus) insulin aspart U-100 100 unit/mL See Rx Instructions .Route .COMPLEX 01/02/23 03/12/24 History (3 mL) subcutaneous pen linaclotide 145 mcg capsule 145 mcg PO QAM 01/02/23 03/12/24 History (Linzess) metoprolol tartrate 50 mg tablet 25 mg PO BID 01/02/23 03/12/24 History nystatin 100,000 unit/gram topical 1 applic topical UD PRN yeast 01/02/23 03/11/24 History cream infection rosuvastatin 20 mg tablet 20 mg PO HS 01/02/23 03/12/24 History meclizine 25 mg tablet 25 mg PO TID PRN dizziness #20 tabs 01/03/23 03/11/24 Rx promethazine 12.5 mg tablet 12.5 mg PO Q6 PRN Nausea And 01/04/23 03/11/24 Rx Vomiting #20 tabs blood sugar diagnostic (OneTouch #300 ea 01/27/23 03/20/23 Rx Ultra Test strips) clonazepam 1 mg tablet 1 mg PO TID Anxiety 01/27/23 03/12/24 History furosemide 40 mg tablet 40 mg PO QAM 01/27/23 03/12/24 History lisinopril 10 mg tablet 10 mg PO HS #0 tabs 01/27/23 03/11/24 History metoclopramide HCl 5 mg tablet 5 mg PO Q12H PRN Nausea 06/01/23 03/11/24 History omega-3s 300 el-stm-qhu-other 1 cap PO BID 06/01/23 03/12/24 History [id number] oil 1,000 mg capsule ([place]-3 Fish Oil) ipratropium bromide 42 mcg (0.06 2 spray intranasal BID #45 mL 08/04/23 03/12/24 Rx %) nasal spray omeprazole 40 mg capsule,delayed 40 mg PO BID #60 caps 11/24/23 03/12/24 Rx release cholecalciferol (vitamin D3) 125 250 mcg PO QAM 03/11/24 03/12/24 History mcg (5,000 unit) tablet (Vitamin D3) insulin glargine 100 unit/mL (3 60 unit subcut HS 03/11/24 03/12/24 History mL) subcutaneous pen (Lantus Solostar U-100 Insulin) levocetirizine 5 mg tablet (Xyzal) 5 mg PO HS 03/11/24 03/11/24 History pen needle, diabetic 32 gauge x #500 ea 04/27/24 Rx " (Easy Comfort Pen [place]) Patient History Medical History Diabetes mellitus type 1 Arthritis Stress incontinence Sleep apnea cpap IBS (irritable bowel syndrome) GERD (gastroesophageal reflux disease) Gastroparesis ? Hypothyroidism PTSD (post-traumatic stress disorder) Anxiety and depression Hx of temporomandibular joint disorder Hypertension Hyperlipidemia Exercise-induced asthma Morbid obesity Hiatal hernia Claustrophobia Significant - does have issues with oxygen mask at times Fatty liver Intermittent palpitations Follows with Dr. Stout- "consistent with PVCs per cardio records"- on beta perico Acquired deviated nasal septum No significant symptoms per patient Surgical History H/O shoulder surgery right x 2 History of tooth extraction Hx of carpal tunnel repair left w/ulnar nerve transpostion History of arthroscopy of left shoulder LMA# + PNB. S/P epidural steroid injection S/P trigger finger release History of colonoscopy History of esophagogastroduodenoscopy (EGD) History of cryosurgery cervix History of ankle surgery right S/P appendectomy History of delivery x4 Family History Sister Breast cancer Renal failure Brother Diabetes Trisomy 21 Son Diabetes Grandfather (Maternal) Heart disease Father Pernicious anemia Other Hypertension No family history of adverse response to anesthesia Social History Smoking Status: Never smoker Second Hand Exposure: No; Do You Dip or Chew Tobacco: No; Hx Alcohol Use: No Hx Substance Use: No Preferred Language: Romansh Communication Ability: Effective Visual Impairment: No Limitations Hearing Ability: Normal Application Support Engineer Required: No Beliefs That Will Affect Care: None Current Living Situation: Family Other Information That Helps Us Care for You: No Feels Safe at Home: Yes Safety Concerns: Feels Safe At This Time Assistive Devices: CPAP and Glasses Review of Systems Review of Systems: 12 point review of systems negative exce pt for otherwise indicated. Physical Exam Physical Exam: Laying on side in bed, appears uncomfortable Eyes: + anicteric sclerae; pupils not irregula r Respiratory: normal respiratory effort; no respiratory distress, does not use accessory muscles and no cough Cardiovascular: well perfused Gastrointestinal (Abdomen): Inspection/Auscultation: abdomen normal to inspec tion; abdomen not distended Musculoskeletal: Extremities: extremities normal to inspection Skin: normal turgor; no rashes and no lesions Neurologic: moves all extremities and awake Psychiatric: Orientation: alert and oriented x 3 Results & Data Vital Signs (Past 12 Hours) Vital Signs Temp Pulse Resp BP Pulse Ox O2 Del Method 06/10/24 07:41 36.9 C 82 18 138/82 95 Room Air 06/10/24 02:15 36.8 C 79 20 159/85 H 97 Room Air PG Care Time/CCT Total # of Minutes Spent Total Time Spent with Patient: Total time spent is greater than 50% in coordination of care (as documented) at patient's floor/unit and/or counseling patient: Coding Level of Care Code 16019 IN/OBS CONSULT LVL 4,60M Diagnoses UTI (urinary tract infection) N39.0 Hematuria presence: without hematuria Urinary tract infection type: site unspecified Incontinence R32 (1) UTI (urinary tract infection) Hematuria presence: without hematuria Urinary tract infection type: site unspecified Qualified Code(s): N39.0 - Urinary tract infection, site not specified
[2024-06-10] MEDS: LORazepam 2 MG/1 ML VIAL IV STA (12:51)
[2024-06-10] MEDS: KETOROLAC TROMETHAMINE 15 MG/ML VIAL IV PRN (12:51)
[2024-06-10] MEDS: PHENAZOPYRIDINE HCL 200 MG TAB PO PRN (14:20)
--- NOTE | 2024-06-10 14:28 | Communication Note ---
Date of Service: June 10, 2024 (1) UTI (urinary tract infection): - symptomatic, started on ceftriaxone in ED-> plan to continue - last culture from 05/2022 grew Klebsiella- sensitive to cephalosporins - f/u urine culture - growing gram neg bacilli -urology consulted - supportive care and follow up outpatient (2) Lumbar disc disease: - lumbar disc disease again noted on imaging - does note some concern for change in sensation/bowel+bladder incontinence but no significant central canal stenosis that would account for this - Pain regimen with Tylenol first line, Toradol second line, and then morphine q4H prn - consult ortho spine -recommended thoracic MRI and neurology consult -Neurology consulted - felt ill defined diffuse groin area paresthesia likely due to referred pain rather than neuropathy (3) Diabetes mellitus with insulin therapy: Plan: - insulin dependence at baseline - last hemoglobin a1c= 6.4 11/2023 - Lantus 10 units BID with sliding scale Plan Chronic Medical Conditions: HLD- continue statin GERD: continue home meds -> PPI and famotidine HTN: continue home medications- Lasix, lisinopril, metoprolol Hypothyroidism: continue levothyroxine Anxiety/Depression: Continue home medications - clonazepam prn, venlafaxine Diet: DM2 Code: Full Vte Prophylaxis: SCD pending ortho spine eval Dispo: Med Surg
--- NOTE | 2024-06-10 15:48 | Magnetic Resonance Report ---
MR thoracic spine wo con HISTORY: 59 years-old Female perineum numbess; RLE pain/numbness Chronic mid back pain with weakness . COMPARISON: MR lumbar spine 06/09/2024, MRI cervical spine 01/23/2009. TECHNIQUE: Multiplanar and multisequence MRI of the thoracic spine was obtained without IV contrast. FINDINGS: Study is motion degraded. Normal bone marrow signal without acute fracture, subluxation or endplate e rosion. There is a focus of apparent mass effect upon the posterior aspect of the upper thoracic spin al cord at the level of T2-T3, for example please see image 8 series 10 with focal mild narrowing of the cord at this level. Equivocal increased T2/STIR signal. Similar findings were present on the MRI cervical spine from 01/23/2009. No intramedullary mass is identified. T8-T9: Small circumferential annular disc bulge with ligamentum flavum thickening and facet arthrosis . There is a 9 x 3 x 10 mm right lateral recess/right foraminal disc extrusion with superior migratio n (image 7 series 14 and image 6 series 7). Central canal and left neural foramen are patent. There i s [id number] right foraminal narrowing. T9-T10: Small posterior annular disc bulge. No central canal or foraminal narrowing. There is normal signal within the thoracic spinal cord. IMPRESSION: 1. Motion degraded exam. No acute fracture or bone marrow edema. 2. Abnormal appearance of the upper thoracic spinal cord at the level of T2-T3 which is similar in ap pearance to the MRI cervical spine study from 01/23/2009. Differential considerations would include a s mall ventral cord herniation versus small intradural extramedullary arachnoid cyst. 3. Discogenic degeneration at T8-T9 and T9-T10 as above. 4. No high-grade central canal stenosis. ACT 112: Negative or not required by law. The above report was generated using voice recognition software. It may contain grammatical, syntax o r spelling errors. Dictated: 06/10/2024 2:42 PM Transcribed: 06/10/2024 3:26 PM Benigno [id number] [email or web address] Electronically signed by: Ryan Box M.D. 06/10/2024 3:46 PM
--- NOTE | 2024-06-10 16:36 | Neurology Consultation ---
Date of Consultation June 10, 2024 Assessment & Plan (1) Sacral back pain: History of Present Illness Attending Physician: Derrick Dunn History of Present Illness pt currently stable. no bladder or bowel incontinence. mri T and L spine essentially unremarkable. pt states she had this b/l back pain and "piriformis problem" for over 3 yrs now. pt also with UTI. chart reviewed. admission HPi: 59 year old female with a past medical history of hypothyroidism, DM2 with gastroparesis, anxiety/PTSD, GERD, HTN, HLD, lumbar radiculopathy presenting with concern for increased back pain/urinary symptoms. Long standing history of low back pain. Long drive in car this week to f/u with back surgeon. Sat down on spinning chair today and noticed increased pain/numbness vaginal/rectal area. States that she has trouble knowing when she needs to urinate/defecate. Notes pain down the right leg all the way to look. Spends most of day in bed, trouble getting around the house, progressive weakness secondary to pain. Lumbar pain has been worked up extensiovly in the past, had injections in 02/2024 and got some pain relief from them. ED Course Significant for: UA concern for UTI-> started on ceftriaxone. MRI lumbar spine with multilevel degenerative changes, no central canal stenosis. Allergies Allergy/AdvReac Type Severity Reaction Status Date / Time homatropine Allergy Severe Anaphylactic Verified 03/12/24 13:05 Shock hydrocodone Allergy Severe Anaphylactic Verified 03/12/24 13:05 Shock erythromycin base Allergy Intermediate Rash Verified 03/12/24 13:05 methylprednisolone Allergy Intermediate Rash Verified 03/12/24 13:05 ondansetron Allergy Intermediate "Cardiac Verified 03/12/24 13:05 symptoms" Sulfa (Sulfonamide Allergy Intermediate Rash Verified 03/12/24 13:05 Antibiotics) codeine Allergy Unknown listed in Verified 03/12/24 13:05 cardio records gabapentin AdvReac Severe Hallucinati Verified 06/10/24 02:29 ons hydromorphone AdvReac Intermediate Confusion Verified 06/10/24 02:29 Home Medications Medication Instructions Recorded Confirmed Type levothyroxine 112 mcg tablet 112 mcg PO QAM ##0 09/01/17 03/12/24 History venlafaxine 75 mg capsule,extended 75 mg PO QAM 02/16/20 03/12/24 History release 24 hr venlafaxine 37.5 mg tablet 37.5 mg PO QAM 08/24/21 03/12/24 History ibuprofen 200 mg tablet (Advil) 600 mg (3 x 200 mg) PO QID PRN 09/03/22 03/11/24 Rx fever or pain #30 tabs albuterol sulfate 90 mcg/actuation 2 puff inhalation QID PRN Wheezing 01/02/23 03/11/24 History aerosol inhaler fluticasone propionate 100 1 inh inhalation BID 01/02/23 03/12/24 History mcg/actuation blister powder for inhalation (Flovent Diskus) insulin aspart U-100 100 unit/mL See Rx Instructions .Route .COMPLEX 01/02/23 03/12/24 History (3 mL) subcutaneous pen linaclotide 145 mcg capsule 145 mcg PO QAM 01/02/23 03/12/24 History (Linzess) metoprolol tartrate 50 mg tablet 25 mg PO BID 01/02/23 03/12/24 History nystatin 100,000 unit/gram topical 1 applic topical UD PRN yeast 01/02/23 03/11/24 History cream infection rosuvastatin 20 mg tablet 20 mg PO HS 01/02/23 03/12/24 History meclizine 25 mg tablet 25 mg PO TID PRN dizziness #20 tabs 01/03/23 03/11/24 Rx promethazine 12.5 mg tablet 12.5 mg PO Q6 PRN Nausea And 01/04/23 03/11/24 Rx Vomiting #20 tabs blood sugar diagnostic (OneTouch #300 ea 01/27/23 03/20/23 Rx Ultra Test strips) clonazepam 1 mg tablet 1 mg PO TID Anxiety 01/27/23 03/12/24 History furosemide 40 mg tablet 40 mg PO QAM 01/27/23 03/12/24 History lisinopril 10 mg tablet 10 mg PO HS #0 tabs 01/27/23 03/11/24 History metoclopramide HCl 5 mg tablet 5 mg PO Q12H PRN Nausea 06/01/23 03/11/24 History omega-3s 300 oq-zhh-dfw-other 1 cap PO BID 06/01/23 03/12/24 History [id number] oil 1,000 mg capsule ([place]-3 Fish Oil) ipratropium bromide 42 mcg (0.06 2 spray intranasal BID #45 mL 08/04/23 03/12/24 Rx %) nasal spray omeprazole 40 mg capsule,delayed 40 mg PO BID #60 caps 11/24/23 03/12/24 Rx release cholecalciferol (vitamin D3) 125 250 mcg PO QAM 03/11/24 03/12/24 History mcg (5,000 unit) tablet (Vitamin D3) insulin glargine 100 unit/mL (3 60 unit subcut HS 03/11/24 03/12/24 History mL) subcutaneous pen (Lantus Solostar U-100 Insulin) levocetirizine 5 mg tablet (Xyzal) 5 mg PO HS 03/11/24 03/11/24 History pen needle, diabetic 32 gauge x #500 ea 04/27/24 Rx " (Easy Comfort Pen [place]) Patient History Medical History Diabetes mellitus type 1 Arthritis Stress incontinence Sleep apnea cpap IBS (irritable bowel syndrome) GERD (gastroesophageal reflux disease) Gastroparesis ? Hypothyroidism PTSD (post-traumatic stress disorder) Anxiety and depression Hx of temporomandibular joint disorder Hypertension Hyperlipidemia Exercise-induced asthma Morbid obesity Hiatal hernia Claustrophobia Significant - does have issues with oxygen mask at times Fatty liver Intermittent palpitations Follows with Dr. Stout- "consistent with PVCs per cardio records"- on beta perico Acquired deviated nasal septum No significant symptoms per patient Surgical History H/O shoulder surgery right x 2 History of tooth extraction Hx of carpal tunnel repair left w/ulnar nerve transpostion History of arthroscopy of left shoulder LMA# + PNB. S/P epidural steroid injection S/P trigger finger release History of colonoscopy History of esophagogastroduodenoscopy (EGD) History of cryosurgery cervix History of ankle surgery right S/P appendectomy History of delivery x4 Family History Sister Breast cancer Renal failure Brother Diabetes Trisomy 21 Son Diabetes Grandfather (Maternal) Heart disease Father Pernicious anemia Other Hypertension No family history of adverse response to anesthesia Social History Smoking Status: Never smoker Second Hand Exposure: No; Do You Dip or Chew Tobacco: No; Hx Alcohol Use: No Hx Substance Use: No Preferred Language: Albanian Communication Ability: Effective Visual Impairment: No Limitations Hearing Ability: Normal Horse 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 Sens: intact to touch b/l grossly, including inner thigh area b/l Coord: intact DTR: 2+ sym b/l, toes down b/l. Gait: deferred. Impression: 59 yo female with chronic pain syndrome and back pain that appears to be mechanical and Musculoskeletal in nature. Overall clinical presentation and exam are not consistent with cauda equina or lumbar radiculopathy. Her ill defined diffuse groin area paresthesia likely due to referred pain rather than neuropathy in nature. Recommendations: no further work up needed from neurology as inpt. tx for UTI pain management/control. physical therapy. will sign off. Chart reviewed I have spent more than 50% educating patient about potential diagnosis and neurological evaluation and coordinating care with patient's treatment team. Total time spent (including chart review and coordination of care): 45 min (this includes chart review). Results & Data Vital Signs (Past 12 Hours) Vital Signs Temp Pulse Resp BP Pulse Ox O2 Del Method 06/10/24 07:41 36.9 C 82 18 138/82 95 Room Air PG Care Time/CCT Total # of Minutes Spent Total Time Spent with Patient: Total time spent is greater than 50% in coordination of care (as documented) at patient's floor/unit and/or counseling patient: Coding Level of Care Code 74178 IN/OBS CONSULT LVL 3,45M Diagnoses Sacral back pain M53.3
--- NOTE | 2024-06-10 16:39 | XRay Report ---
KUB HISTORY: fecal incontinence, eval for constipation COMPARISON: Abdomen and pelvis CT 01/13/2024. KUB 11/06/2021. FINDINGS: The bowel gas pattern is unremarkable. There are no dilated loops of small bowel to suggest an obstruction. No renal calculi. No ureteral calculi. No pneumoperitoneum or pneumatosis. Mild-to- moderate fecal retention. IMPRESSION: 1. Nonobstructive bowel gas pattern. 2. Hyir-dv-oqlsupai fecal retention. ACT 112: Negative or not required by law. Electronically signed by: Curry Monson M.D. 06/10/2024 4:37 PM
[2024-06-10] MEDS: lisinopril 10 MG TAB PO SCH (21:14)
[2024-06-10] MEDS: ROSUVASTATIN CALCIUM 20 MG TAB PO SCH (21:14)
[2024-06-10] MEDS: cefTRIAXone SODIUM 2,000 MG/50 ML BAG IV SCH (21:26)
--- NOTE | 2024-06-11 01:14 | Billing Data ---
Date of Service June 11, 2024 Coding Level of Care Code 57566 INT INP/OBS CARE
[2024-06-11 10:26] LABS: Hematocrit (blood only) 37.8 % (37.0-47.0); Hemoglobin 12.6 g/dl (12.0-16.0); Mean Corpuscular Hemoglobin 28.3 pg (25.0-34.0); Mean Corpuscular Hgb Conc 33.3 g/dL (32.0-36.0); Mean Corpuscular Volume 84.8 fL (80.0-100.0); Mean Platelet Volume 9.7 fL (9.4-12.4); Platelet Count 225 K/uL (130-400); RDW Coefficient of Variation 13.7 % (11.5-14.5); RDW Standard Deviation 42.4 fL (36.4-46.3); Red Blood Count 4.46 M/uL (4.20-5.40); White Blood Count 6.46 K/ul (4.8-10.8)
[2024-06-11 10:38] LABS: BUN Creatinine Ratio 17.7 (10-20); Calcium 9.6 mg/dl (8.6-10.3); Est GFR (Non-African American) 53.5 ml/min; Potassium 3.8 mmol/L (3.5-5.1)
[2024-06-11] MEDS: OPTIRAY 320 100ml IV ONE (11:57)
--- NOTE | 2024-06-11 14:49 | Orthopedic Progress Note ---
Date of Service June 11, 2024 Assessment & Plan (1) Intractable back pain: Plan: I had the opportunity review the patient's thoracic and lumbar MRI. This point there is absolutely no indication for any surgical intervention. Patient should continue with activity as tolerated and follow-up with pain management. Admission and Anticipated Discharge Date Admission Date: June 10, 2024 Subjective Intractable back pain Results & Data Vital Signs (Past 12 Hours) Vital Signs Temp Pulse Resp BP Pulse Ox O2 Del Method 06/11/24 07:31 36.7 C 93 H 18 111/78 94 Room Air
--- NOTE | 2024-06-11 15:11 | Hospitalist Progress Note ---
Date of Service June 11, 2024 Assessment & Plan (1) UTI (urinary tract infection): Plan: - symptomatic, started on ceftriaxone in ED-> plan to continue -urine culture growing pansensitive E coli. -plan to transition to PO abx upon discharge. CBC reviewed 06/11: Unremarkable BMP reviewed 06/11: Unremarkable (2) Lumbar disc disease: Plan: - lumbar disc disease again noted on imaging - does note some concern for change in sensation/bowel+bladder incontinence but no significant central canal stenosis that would account for this - Pain regimen with Tylenol first line, Toradol second line, and then morphine q4H prn - consult ortho spine - recommended Thoracic spine MRI, neurology consult. Follow-up with pain management. Lumbar spine MRI 06/09: Mild disc degeneration at L2-3 through L5-S1 with annular disc bulging. No degenerative spinal calcinosis. Mild bilateral L3-4, mild bilateral L4-L5 and mild right and moderate left L5-S1 neuroforaminal stenosis with impingement of the L5 left nerve root ganglia. Mild facet arthropathy with mild to moderate synovitis with moderate joint effusions at L4- 5 with moderate synovitis. No evidence of fracture, infection, tumor or arachnoiditis. Spine flexion/extension x-ray 06/10: No lumbar spine fractures. Grade 1 anterolisthesis of L4 and L5 due to facet arthrosis Thoracic spine MRI 06/10: Abnormal appearance to the upper thoracic spinal cord at level T2-T3 which is similar in appearance to MRI from 2008. Differentials include small ventral cord herniation versus small intradural extramedullary arachnoid cyst. Discogenic degeneration at T8-T9 and T9-T10. No high-grade central canal stenosis. Neurology consulted 06/10/2024, appreciate recommendations. No further workup needed from your neurology as inpatient. Treatment for UTI, pain management/control, physical therapy. Neurologist had also recommended a urology consultation given urinary incontinence. Urology consulted and note reviewed 06/10/2024. No plan for acute urologic intervention at this time. Agree with antibiotics narrowing coverage. Check PVR to make sure emptying well. Outpatient follow- up. Ordered KUB to assess for excess constipation that could be contributing to fecal incontinence. Reviewed 06/10 which was only significant for mild to moderate stool retention. Less likely cause of fecal incontinence. CTAP with p.o. and IV contrast read pending from 06/11.Ordered to evaluate for any abnormalities causing her tingling sensation in her perineal area. (3) Diabetes mellitus with insulin therapy: Plan: - insulin dependence at baseline - last hemoglobin a1c= 6.4 11/2023 - Lantus 10 units BID with sliding scale Plan Chronic Medical Conditions: HLD- continue statin GERD: continue home meds -> PPI and famotidine HTN: continue home medications- Lasix, lisinopril, metoprolol Hypothyroidism: continue levothyroxine Anxiety/Depression: Continue home medications - clonazepam prn, venlafaxine Meds per patient and [facility] fill record-> f/u on final med rec Diet: DM2 Code: Full Vte Prophylaxis: SCDs Dispo: Med Surg, anticipate discharge 06/12 Admission and Anticipated Discharge Date Admission Date: June 10, 2024 Subjective Patient seen and examined this afternoon. Patient complaining of lower back pain. she also states she had an episode of incontinence in her bed earlier today. Patient reports her urinary symptoms associated w/ her UTI are greatly improved while on abx. Patient would like to stay in hospital to await CT results and also due to her back pain. Patient is requesting to be set up with a new project management it specialist upon discharge. States she [facility]. Physical Exam 2 Constitutional: WD/WN, vitals as above Respiratory: normal respiratory effort, lungs clear to auscultation Cardiovascular: RRR, no murmur, no edema Skin: no rashes, warm and dry Psychiatric: A+Ox3, euthymic affect Results & Data Results & Data Vital Signs (Past 12 Hours) Vital Signs Temp Pulse Resp BP Pulse Ox O2 Del Method 06/11/24 07:31 36.7 C 93 H 18 111/78 94 Room Air Laboratory Results 06/11/24 09:44 06/11/24 09:44 PG Care Time/CCT Total # of Minutes Spent Total Time Spent with Patient: Total time spent is greater than 50% in coordination of care (as documented) at patient's floor/unit and/or counseling patient: Coding Level of Care Code 76063 SUB INP/OBS CARE 3/50MIN Diagnoses UTI (urinary tract infection) N39.0 Hematuria presence: without hematuria Urinary tract infection type: site unspecified Lumbar disc disease M51.9 Diabetes mellitus with insulin therapy E11.9; Z79.4 (1) UTI (urinary tract infection) Hematuria presence: without hematuria Urinary tract infection type: site unspecified Qualified Code(s): N39.0 - Urinary tract infection, site not specified
--- NOTE | 2024-06-11 18:32 | CT Scan Report ---
CT abdomen pelvis wo/w con CT DOSE: 3007.22 mGy.cm CLINICAL HISTORY: abdominal numbness/tingling/pain TECHNIQUE: Multiaxial CT images of the abdomen and pelvis were performed both before and after the in travenous administration of contrast. Oral contrast was also administered for the examination. A dos e lowering technique was utilized adhering to the principles of ALARA. COMPARISON STUDY: Abdomen and pelvis CT 01/13/2024. FINDINGS: A few linear scarlike densities noted within the lung bases. No pneumoperitoneum. No pneuma tosis. No acute fractures identified. Mild hepatic steatosis. A few scattered hypodense lesions again noted within the liver demonstrating discontinuous peripheral nodular enhancement. Therefore, these favor hemangiomas. The largest hemangioma measures 3.1 cm. The gallbladder, spleen, adrenal glands, p ancreas, and kidneys are unremarkable. No renal or ureteral stones. No hydronephrosis. The main sherman l vein is patent. Normal caliber abdominal aorta. Retroperitoneal or pelvic lymphadenopathy. No pelvi c free fluid. The bladder is mildly distended. No bladder wall thickening. The uterus and bilateral a dnexa are unremarkable. No bowel wall thickening or obstruction. Prior appendectomy. IMPRESSION: 1. No bowel wall thickening or obstruction. 2. No renal or ureteral stones. No hydronephrosis. 3. Stable hepatic hemangiomas. 4. Prior appendectomy. ACT 112: Negative or not required by law. Electronically signed by: Curry Monson M.D. 06/11/2024 6:31 PM
--- NOTE | 2024-06-12 11:15 | Hospitalist Progress Note ---
Date of Service June 12, 2024 Assessment & Plan (1) UTI (urinary tract infection): Plan: - symptomatic, started on ceftriaxone in ED-> plan to continue -urine culture growing pansensitive E coli. -Patient had 3 doses of IV Rocephin which completed her treatment for an uncomplicated UTI. CBC reviewed 06/11: Unremarkable BMP reviewed 06/11: Unremarkable (2) Lumbar disc disease: Plan: lumbar disc disease again noted on imaging does note some concern for change in sensation/bowel+bladder incontinence but no significant central canal stenosis that would account for this Pain regimen with Tylenol first line, Toradol second line, and then morphine q4H prn consult ortho spine - recommended Thoracic spine MRI, neurology consult. Follow- up with pain management. Lumbar spine MRI 06/09: Mild disc degeneration at L2-3 through L5-S1 with annular disc bulging. No degenerative spinal calcinosis. Mild bilateral L3-4, mild bilateral L4-L5 and mild right and moderate left L5-S1 neuroforaminal stenosis with impingement of the L5 left nerve root ganglia. Mild facet arthropathy with mild to moderate synovitis with moderate joint effusions at L4-5 with moderate synovitis. No evidence of fracture, infection, tumor or arachnoiditis. Spine flexion/extension x-ray 06/10: No lumbar spine fractures. Grade 1 anterolisthesis of L4 and L5 due to facet arthrosis Thoracic spine MRI 06/10: Abnormal appearance to the upper thoracic spinal cord at level T2-T3 which is similar in appearance to MRI from 2008. Differentials include small ventral cord herniation versus small intradural extramedullary arachnoid cyst. Discogenic degeneration at T8-T9 and T9-T10. No high-grade central canal stenosis. Neurology consulted 06/10/2024, appreciate recommendations. No further workup needed from your neurology as inpatient. Treatment for UTI, pain management/control, physical therapy. Neurologist had also recommended a urology consultation given urinary incontinence. Urology consulted and note reviewed 06/10/2024. No plan for acute urologic intervention at this time. Agree with antibiotics narrowing coverage. Check PVR to make sure emptying well. Outpatient follow- up. Ordered KUB to assess for excess constipation that could be contributing to fecal incontinence. Reviewed 06/10 which was only significant for mild to moderate stool retention. Less likely cause of fecal incontinence. CTAP with p.o. and IV contrast reviewed 06/12: negative for any abnormalities contributing to her symptoms. encouraged patient to follow up with PCP for referrals for pelvic floor therapy and tertiary care centers added Celebrex 100mg BID 06/12 (3) Diabetes mellitus with insulin therapy: Plan: - insulin dependence at baseline - last hemoglobin a1c= 6.4 11/2023 - Lantus 10 units BID with sliding scale Plan Chronic Medical Conditions: HLD- continue statin GERD: continue home meds -> PPI and famotidine HTN: continue home medications- Lasix, lisinopril, metoprolol Hypothyroidism: continue levothyroxine Anxiety/Depression: Continue home medications - clonazepam prn, venlafaxine Meds per patient and [facility] fill record-> f/u on final med rec Diet: DM2 Code: Full Vte Prophylaxis: SCDs Dispo: Med Surg, anticipate discharge 06/13 Admission and Anticipated Discharge Date Admission Date: June 10, 2024 Subjective Patient seen and examined this morning. Discussed discharge with patient and she did not feel ready to return home today. She states she is worried about returning home as she has to care for herself and her travels for work. She states she is still in a great amount of lower back pain. She states the morphine/toradol has been helping her. She states that she still is having abnormal tingling/vibrating sensations in her vaginal/perineal area. Reports she has seen gynecology outpatient for this but was told the exam was normal. Discussed pelvic floor therapy with patient, she states she has had this in the past and felt it to be beneficial. she denied any urinary symptoms at time of encounter. Physical Exam 2 Constitutional: WD/WN, vitals as above Respiratory: normal respiratory effort, lungs clear to auscultation Cardiovascular: RRR, no murmur, no edema Skin: no rashes, warm and dry Psychiatric: A+Ox3, euthymic affect Results & Data Results & Data Vital Signs (Past 12 Hours) Vital Signs Temp Pulse Resp BP Pulse Ox O2 Del Method 06/12/24 07:46 36.8 C 79 18 129/67 93 Room Air Laboratory Results 06/11/24 09:44 06/11/24 09:44 PG Care Time/CCT Total # of Minutes Spent Total Time Spent with Patient: Total time spent is greater than 50% in coordination of care (as documented) at patient's floor/unit and/or counseling patient: Coding Level of Care Code 14933 SUB INP/OBS CARE MIN Diagnoses UTI (urinary tract infection) N39.0 Hematuria presence: without hematuria Urinary tract infection type: site unspecified Lumbar disc disease M51.9 Diabetes mellitus with insulin therapy E11.9; Z79.4 (1) UTI (urinary tract infection) Hematuria presence: without hematuria Urinary tract infection type: site unspecified Qualified Code(s): N39.0 - Urinary tract infection, site not specified
[2024-06-12] MEDS: CELECOXIB 100 MG CAP PO SCH (11:21)
[2024-06-12 20:17] VITALS: RESP 20
[2024-06-13 07:14] VITALS: BP 107/64; PULSE 69; TEMP 97.7; O2SAT 94
[2024-06-13] MEDS ORDERED: KETOROLAC TROMETHAMINE 15 MG/ML VIAL IV PRN (08:06)
--- NOTE | 2024-06-13 10:21 | Discharge Summary ---
Discharge Summary Date of Service June 13, 2024 Principal Dx & Hospital Course #1 = Principal Diagnosis (1) UTI (urinary tract infection): - symptomatic, started on ceftriaxone in ED-> plan to continue -urine culture growing pansensitive E coli. -Patient had 3 doses of IV Rocephin which completed her treatment for an uncomplicated UTI. CBC reviewed 06/11: Unremarkable BMP reviewed 06/11: Unremarkable (2) Lumbar disc disease: lumbar disc disease again noted on imaging does note some concern for change in sensation/bowel+bladder incontinence but no significant central canal stenosis that would account for this Pain regimen with Tylenol first line, Toradol second line, and then morphine q4H prn consult ortho spine - recommended Thoracic spine MRI, neurology consult. Follow- up with pain management. Lumbar spine MRI 06/09: Mild disc degeneration at L2-3 through L5-S1 with annular disc bulging. No degenerative spinal calcinosis. Mild bilateral L3-4, mild bilateral L4-L5 and mild right and moderate left L5-S1 neuroforaminal stenosis with impingement of the L5 left nerve root ganglia. Mild facet arthropathy with mild to moderate synovitis with moderate joint effusions at L4-5 with moderate synovitis. No evidence of fracture, infection, tumor or arachnoiditis. Spine flexion/extension x-ray 06/10: No lumbar spine fractures. Grade 1 anterolisthesis of L4 and L5 due to facet arthrosis Thoracic spine MRI 06/10: Abnormal appearance to the upper thoracic spinal cord at level T2-T3 which is similar in appearance to MRI from 2008. Differentials include small ventral cord herniation versus small intradural extramedullary arachnoid cyst. Discogenic degeneration at T8-T9 and T9-T10. No high-grade central canal stenosis. Neurology consulted 06/10/2024, appreciate recommendations. No further workup needed from your neurology as inpatient. Treatment for UTI, pain management/control, physical therapy. Neurologist had also recommended a urology consultation given urinary incontinence. Urology consulted and note reviewed 06/10/2024. No plan for acute urologic intervention at this time. Agree with antibiotics narrowing coverage. Check PVR to make sure emptying well. Outpatient follow- up. Dr. Gatica also reviewed patients EMG who stated findings consistent with meralgia paresthetica, diabetes neuropathy, chronic radiculopathy - all conditions were benign and she could follow up outpatient with a neurologist of her choosing. No further treatment/workup inpatient. Ordered KUB to assess for excess constipation that could be contributing to fecal incontinence. Reviewed 06/10 which was only significant for mild to moderate stool retention. Less likely cause of fecal incontinence. CTAP with p.o. and IV contrast reviewed 06/12: negative for any abnormalities contributing to her symptoms. encouraged patient to follow up with PCP for referrals for pelvic floor therapy and tertiary care centers added Celebrex 100mg BID and patient discharged home on this medication. (3) Diabetes mellitus with insulin therapy: Resume outpatient medications Plan Chronic Medical Conditions: HLD- continue statin GERD: continue home meds -> PPI and famotidine HTN: continue home medications- Lasix, lisinopril, metoprolol Hypothyroidism: continue levothyroxine Anxiety/Depression: Continue home medications - clonazepam prn, venlafaxine Updated at bedside extensively 06/13 Admission HPI Per Admitting Provider 59 year old female with a past medical history of hypothyroidism, DM2 with gastroparesis, anxiety/PTSD, GERD, HTN, HLD, lumbar radiculopathy presenting with concern for increased back pain/urinary symptoms. Long standing history of low back pain. Long drive in car this week to f/u with back surgeon. Sat down on spinning chair today and noticed increased pain/numbness vaginal/rectal area. States that she has trouble knowing when she needs to urinate/defecate. Notes pain down the right leg all the way to look. Spends most of day in bed, trouble getting around the house, progressive weakness secondary to pain. Lumbar pain has been worked up extensiovly in the past, had injections in 02/2024 and got some pain relief from them. ED Course Significant for: UA concern for UTI-> started on ceftriaxone. MRI lumbar spine with multilevel degenerative changes, no central canal stenosis. Discharge Exam Constitutional WD/WN, vitals as above Respiratory normal respiratory effort, lungs clear to auscultation Cardiovascular RRR, no murmur, no edema Skin no rashes, warm and dry Psychiatric A+Ox3, euthymic affect Discharge Plan Discharge Items Patient Disposition: Home - Self-Care Reason For Visit: BACK PAIN/UTI Discharge Diagnosis: UTI, back pain Activity: Resume your previous activity Non-emergency contact: Primary Care Provider Call non-emergency contact if: you have any medication questions and your symptoms worsen Follow-up/Referrals: Kassy Clark DO [Primary Care Provider] - 06/28/24 10:00 am Diet: Carb Consistent or DM2 Addtl Attending Provider Instructions: Mrs. Marcum, You were recently hospitalized for a UTI along with back pain. Please see recommendations below regarding your discharge. 1. Please start taking Celebrex 200mg twice daily for pain. This is a NSAID - please avoid further NSAID products (ibuprofen, motrin, advil, aleve etc.) while on this medication. 2. Please follow up with neurology at an appointment to be scheduled. 3. Please follow up with urology at an appointment to be scheduled. 4. Please follow up with pain management per orthopedics. 5. You have completed treatment for your UTI so no further antibiotics are required upon discharge. If you start to experience any worsening symptoms including urinary frequency, urgency or blood in urine please report back to the ER for further care. Please follow up with PCP within 1-2 weeks of discharge. Sincerely, Lisbeth Cisse PA-C Pending Studies at Discharge: No Stand-Alone Forms: [facility] [employer], Smoking Cessation Medications and DC Order Prescriptions: New celecoxib [Celebrex] 100 mg Capsule 100 mg PO BID Qty: 60 0RF Continued levothyroxine 112 mcg Tablet 112 mcg PO QAM Qty: 0 lisinopril 10 mg tablet 10 mg PO HS Qty: 0 ipratropium bromide 42 mcg (0.06 %) spray,non-aerosol 2 spray intranasal BID Qty: 45 3RF Rx Instructions: USE 2 SPRAYS INTO EACH NOSTRIL TWICE DAILY omeprazole 40 mg capsule,delayed release(DR/EC) 40 mg PO BID Qty: 60 4RF venlafaxine 75 mg capsule,extended release 24hr 75 mg PO QAM Rx Instructions: TOTAL DOSE 112.5 MG--TAKES WITH 37.5 MG TAB. venlafaxine 37.5 mg Tablet 37.5 mg PO QAM Rx Instructions: TOTAL DOSE 112.5 MG--TAKES WITH 75 MG CAP. clonazepam 1 mg tablet 1 mg PO TID fluticasone propionate [Flovent Diskus] 100 mcg/actuation blister with device 1 inh INHALATION BID nystatin 100,000 unit/gram cream 1 applic TOPICAL UD PRN (Reason: yeast infection) Rx Instructions: apply a thin film beneath breasts and abdominal folds rosuvastatin 20 mg tablet 20 mg PO HS albuterol sulfate 90 mcg/actuation HFA aerosol inhaler 2 puff INHALATION QID PRN (Reason: Wheezing) Linzess 145 mcg capsule 145 mcg PO QAM metoprolol tartrate 50 mg tablet 25 mg PO BID insulin aspart U-100 100 unit/mL (3 mL) insulin pen See Rx Instructions .ROUTE .COMPLEX Rx Instructions: inject 1 unit for every 5 carbs with meals subcutaneously. use 80 to 100 units daily meclizine 25 mg tablet 25 mg PO TID PRN (Reason: dizziness) Qty: 20 0RF promethazine 12.5 mg tablet 12.5 mg PO Q6 PRN (Reason: Nausea And Vomiting) Qty: 20 0RF furosemide 40 mg tablet 40 mg PO QAM metoclopramide HCl 5 mg tablet 5 mg PO Q12H PRN (Reason: Nausea) [place]-3 Fish Oil 300-1,000 mg Capsule 1 cap PO BID levocetirizine [Xyzal] 5 mg Tablet 5 mg PO HS cholecalciferol (vitamin D3) [Vitamin D3] 125 mcg (5,000 unit) Tablet 250 mcg PO QAM insulin glargine [Lantus Solostar U-100 Insulin] 100 unit/mL (3 mL) insulin pen 60 unit SUBCUT HS Discontinued ibuprofen [Advil] 200 mg tablet 600 mg PO QID PRN (Reason: fever or pain) Qty: 30 0RF No Action (DME) pen needle, diabetic [Easy Comfort Pen [place]] 32 gauge x 5/32" needle See Rx Instructions .Route Qty: 500 3RF Rx Instructions: use with insulin injections, 5 times daily (DME) OneTouch Ultra Test Strip See Rx Instructions .ROUTE Qty: 300 0RF Rx Instructions: test blood sugar 3 x daily Discharge Orders: Discharge Order (Routine); Ordered 06/13/24 Ordered By: Lisbeth Cisse Admission Data Admit Date/Time: 06/10/24 00:40 Attending Provider: Derrick Dunn Admit Provider: Katey Floyd Primary Care Provider: Kassy Clark Other Providers: Jerardo Chandler; Katey Floyd; Vadim Finley; Adam Kinney; Seok,Gaudencio H. Other Interventions: Discharge Summary Assessment (RN) Last Done: 06/13/24 10:23 Hospital Stay Data Consultations 06/10/24 00:59 ED Decision to Admit Stat 06/10/24 04:51 Consult Orthopedic Spine Surgery Routine 06/10/24 11:15 Consult Neurology Routine 06/10/24 11:20 Consult Urology Routine Diagnostic Imagining Performed 06/09/24 19:51 MRI Lumbar Spine [MR lumbar spine wo con] Stat 06/10/24 08:54 MR thoracic spine wo con Routine 06/11/24 08:50 CT abdomen pelvis wo/w con Routine Pending Results Patient Have Any Pending Studies at Discharge: No Discharge Instructions Given to Patient (Per Discharging Provider) Mrs. Marcum, Isidro were recently hospitalized for a UTI along with back pain. Please see recommendations below regarding your discharge. 1. Please start taking Celebrex 200mg twice daily for pain. This is a NSAID - please avoid further NSAID products (ibuprofen, motrin, advil, aleve etc.) while on this medication. 2. Please follow up with neurology at an appointment to be scheduled. 3. Please follow up with urology at an appointment to be scheduled. 4. Please follow up with pain management per orthopedics. 5. You have completed treatment for your UTI so no further antibiotics are required upon discharge. If you start to experience any worsening symptoms including urinary frequency, urgency or blood in urine please report back to the ER for further care. Please follow up with PCP within 1-2 weeks of discharge. Sincerely, Lisbeth Cisse PA-C Supervising Physician Co-Signing Physician Notes During face to face encounter, I obtained a brief physical examination, discussed hospital stay with patient and discharge instructions with patient. I discussed discharge plan of care with KELLY Cisse. I reviewed above note and agree with it except for the following: Patient completed her course of IV antibiotics. # doses of rocephin would complete treatment for an uncomplicated UTI. Followup appointments as noted above. Total Time Total Time Spent Total Time Spent (In Minutes): 50 Total Time Includes: Examination of the Patient, Discharge Planning and Medication Reconciliation Coding Level of Care Code 86459 INP/OBS DISCH >30 MIN Diagnoses UTI (urinary tract infection) N39.0 Hematuria presence: without hematuria Urinary tract infection type: site unspecified Lumbar disc disease M51.9 Diabetes mellitus with insulin therapy E11.9; Z79.4
== END 2024-06-13 13:28 | disposition home or self-care (01) ==
LOC: 3W 16:32 → ED 16:32 → SUATTDRO 06-10 00:40 → 3W 06-10 01:52